=== PATIENT | male | born 1935 | race Caucasian/White ===

== ENCOUNTER 2019-08-18 22:32 | Inpatient (IN) | payer MEDICARE, OTHER ==
[~2019-08-18] VITALS: Ht 182.9 cm; Wt 70.3 kg
--- NOTE | 2019-08-18 22:42 | NUR ---
PT BIB [facility] FOR LOW BLOOD PRESSURE. PATIENT IS AAOX0. VERBAL RESPONSE TO PHYSICAL STIMULI. AWAKE. HAS G TUBE, DISTENDED ABDOMEN. WEISS CATHETER UPON ARRIVAL. MISSING 2ND AND 3RD DIGIT FROM RIGHT HAND. BREATHING EVENLY AND UNLABORED. ON 2L OF N/C. NO SOB. CONNECTED TO MONITOR. BLOOD PRESSURE AT 98/56.
[2019-08-18 23:14] LABS: BASOPHILS % (AUTO) 0.4 % (0.0-2.0); EOSINOPHILS % (AUTO) 0.3 % (0.0-6.0); HEMATOCRIT 39 % (39-51); HEMOGLOBIN 12.9 g/dL (13.5-17.5); LYMPHOCYTES # (AUTO) 0.5 /CMM (0.8-4.8); LYMPHOCYTES % (AUTO) 4.4 % (20.0-44.0); MEAN CORPUSCULAR HGB CONC 33 g/dl (31.0-36.0); MEAN CORPUSCULAR VOLUME 81 fL (80-96); MONOCYTES % (AUTO) 9.1 % (2.0-12.0); NEUTROPHILS % (AUTO) 85.8 % (43.0-81.0); PLATELET COUNT (AUTO) 309 /CMM (150-450); RED BLOOD CELL COUNT(AUTO) 4.77 MIL/uL (4.5-6.0); WHITE BLOOD COUNT (AUTO) 10.6 K/uL (4.3-11.0)
[2019-08-18 23:22] LABS: CALCIUM, SERUM 9.3 mg/dL (8.5-10.1); CARBON DIOXIDE 31 mmol/L (21-32); CHLORIDE 96 mmol/L (98-107); CREATININE 2.1 mg/dL (0.6-1.3); GLUCOSE 187 mg/dL (74-106); SODIUM SERUM 133 mmol/L (136-145); UREA NITROGEN, BLOOD 56 mg/dL (7-18)
[2019-08-18] MEDS ORDERED: ONDANSETRON HCL/PF 4 MG/2 ML VIAL IV ONE (23:30)
--- NOTE | 2019-08-18 23:30 | NUR ---
PT HAD AN EPISODE OF YELLOW VOMMITUS. PLENTY IN AMOUT. MADE AWARE. RECEIVED ORDER FOR ANDREI
[2019-08-18] MEDS ORDERED: ONDANSETRON HCL/PF 4 MG/2 ML VIAL ONE (23:33)
[2019-08-19] VITALS (35 sets, daily range): BP systolic 58–104; BP diastolic 35–57
[2019-08-19 00:55] LABS: APPEARANCE,URINE Turbid (CLEAR); BILIRUBIN,URINE MODERATE (NEGATIVE); BLOOD, URINE Small Ery/uL (NEGATIVE); COLOR,URINE Brown (YELLOW); KETONES,URINE Trace (NEGATIVE); LEUKOCYTE ESTERASE ,URINE Small (NEGATIVE); NITRITE, URINE Negative (NEGATIVE); UGLUCOSE Negative (NEGATIVE)
[2019-08-19 00:59] LABS: PH,URINE >9.0 (5.0-8.0); PROTEIN,URINE >300 mg/dl (NEGATIVE)
[2019-08-19 01:17] LABS: WBC,URINE 21-50 /HPF (0-3)
[2019-08-19 01:18] LABS: BACTERIA,URINE Many /HPF (None Seen); SQUAMOUS EPITHELIAL CELL,UR Few /HPF (None Seen); TRIPLE PHOSPHATE CRYSTAL,UR Many /HPF (None Seen)
[2019-08-19] MEDS ORDERED: CEFTRIAXONE 1 G in IV D5W 50 ML IV ONE (02:00)
[2019-08-19] MEDS ORDERED: FUROSEMIDE 40 MG/4 ML VIAL IV ONE (02:00)
[2019-08-19] MEDS ORDERED: L. A1CAP11 PO (02:08)
[2019-08-19] MEDS ORDERED: CEFTRIAXONE 1GM BAG (ER ONLY) 50 ML IV ONE (02:09)
[2019-08-19] MEDS ORDERED: AMIO200T4 PO (02:09)
[2019-08-19] MEDS ORDERED: ALBU2.5V13 NEB (02:09)
[2019-08-19] MEDS ORDERED: AMLO5TAB9 PO (02:09)
[2019-08-19] MEDS ORDERED: ARMO150T2 PO (02:11)
[2019-08-19] MEDS ORDERED: ATOR20TA PO (02:11)
[2019-08-19] MEDS ORDERED: CRAN425C6 PO (02:12)
[2019-08-19] MEDS ORDERED: CALC-770 PO (02:12)
[2019-08-19] MEDS ORDERED: BISA-79 GT (02:13)
[2019-08-19] MEDS ORDERED: LEVE500T20 PO (02:14)
[2019-08-19] MEDS ORDERED: LOSA50TA39 PO (02:14)
[2019-08-19] MEDS ORDERED: OMEP20TA5 PO (02:15)
[2019-08-19] MEDS ORDERED: METO50TA16 PO (02:15)
[2019-08-19] MEDS ORDERED: ACET325C7 GT (02:16)
[2019-08-19] MEDS ORDERED: TAMS-12 GT (02:16)
[2019-08-19] MEDS ORDERED: IV NS 0.9% 1,000 ML IV PRN (02:20)
--- NOTE | 2019-08-19 02:21 | NUR ---
LASIX CANCELLED DUE TO UNSAFE REASONS: PATIENT'S BLOOD PRESSURE ALREADY AT 92/58.
[2019-08-19] MEDS ORDERED: MAGNESIUM HYDROXIDE 30 ML UDC PO PRN (02:30)
[2019-08-19] MEDS ORDERED: ONDANSETRON HCL/PF 4 MG/2 ML VIAL IVP PRN (02:30)
[2019-08-19] MEDS ORDERED: MAG HYDROX/AL HYDROX/SIMETH 30 ML UDC PO PRN (02:30)
[2019-08-19] MEDS ORDERED: MORPHINE SULFATE INJ 2 MG/ML DISP.SYRIN IV PRN (02:30)
[2019-08-19] MEDS ORDERED: ALBUTEROL FS 2.5 MG/0.5 ML VIAL.NEB NEB PRN (02:30)
--- NOTE | 2019-08-19 02:55 | NUR ---
Aravind carter in [facility] - 08/19/19 at 0257 by SELVIN GOING TO [id number]
--- NOTE | 2019-08-19 02:57 | NUR ---
GOING TO [id number]
--- NOTE | 2019-08-19 03:06 | NUR ---
REPORT GIVEN TO JOCELYNE GAMEZ.
--- NOTE | 2019-08-19 03:30 | NUR ---
RN NOTES: ADMITTED FROM ER VIA GURNEY ACCOMPANIED BY 2 RN, ON SUCCESSFACTORS CONSULTANT, A/OX1, FORGETFUL AND WITH PERIODS OF CONFUSION, ANSWER YES AND NO, THERE ARE TIMES HE WILL JUST MAKE A COOING SOUND, RESPOND WHEN NAME IS CALLED,CAME IN FROM [facility], WITH C/O LOW BP-96/48 AND TACHYCARDIEC, BS-207, DX: uti, RENAL FAILURE AND HYPERKALEMIA(K-6.0),ON TELE MONITOR SR-96,ON O2 AT 2L/MIN VIA NC SPO2-94%,WEISS CATH F-16/10ML DRAINING INTO DARK YELLOWISH COLORED URINE,SLIGHTLY CLOUDY,ORIENTED TO UNIT AND STAFF, FALL,SAFETY AND ASPIRATION PRECAUTION OBSERVED.VOMITED ONCE IN ER RECEIVED ZOFRAN IV AND CEFTRIAXONE IV/ATB 1ST DOSE GIVEN,LASIX NOT GIVEN DUE TO LOW BP PER SHAHEEN(ER/RN) ENDORSEMENT.UNABLE TO GET HISTORY CORRECTLY PATIENT IS DEMENTED.NO RELATIVES AT BED SIDE. BODY ASSESSMENT DONE: 1) LEFT FOOT DISCOLORATION ON THE 1ST AND 2ND TOE 2) OPEN WOUND ON THE SACROCOCCYX AREA 3)RIGHT HAND- THERE IS MISSING 2ND AND 3RD DIGIT 4)PEG SITE- NOTED WITH REDNESS 5) WEISS CATH F-16/10ML 6)DISCOLORATION ON THE RIGHT FOOT 1ST AND 2ND TOE NAIL
--- NOTE | 2019-08-19 06:11 | NUR ---
RN NOTES: ASLEEP, NO PAIN OR DISCOMFORT SINCE ADMISSION IN MS-3W, NO VOMITING, SLEEP WELL, IVF OF NS AT 75ML/HR STARTED AT 0512, IV CANNULA INTACT IN THE LEFT WRIST G#18, PATENT.
[2019-08-19 06:25] LABS: BASOPHILS % (AUTO) 0.3 % (0.0-2.0); HEMATOCRIT 37 % (39-51); HEMOGLOBIN 12.3 g/dL (13.5-17.5); LYMPHOCYTES # (AUTO) 0.4 /CMM (0.8-4.8); LYMPHOCYTES % (AUTO) 5.1 % (20.0-44.0); MEAN CORPUSCULAR HGB CONC 33 g/dl (31.0-36.0); MEAN CORPUSCULAR VOLUME 81 fL (80-96); MONOCYTES # (AUTO) 0.7 /CMM (0.1-1.30); MONOCYTES % (AUTO) 8.5 % (2.0-12.0); NEUTROPHILS # (AUTO) 7.5 /CMM (1.8-8.9); NEUTROPHILS % (AUTO) 86.1 % (43.0-81.0); PLATELET COUNT (AUTO) 300 /CMM (150-450); RED BLOOD CELL COUNT(AUTO) 4.59 MIL/uL (4.5-6.0); WHITE BLOOD COUNT (AUTO) 8.7 K/uL (4.3-11.0)
[2019-08-19 06:52] LABS: CHOLESTEROL 74 mg/dL (<200); HDL CHOLESTEROL 28 mg/dL (40-60); LDL 28 mg/dL (0-99); THYROID STIMULATING HORMONE 1.069 uIU/mL (0.358-3.74); TRIGLYCERIDES 73 mg/dL (30-150)
[2019-08-19 07:03] LABS: ALANINE AMINOTRANSFERASE 66 U/L (12-78); ALBUMIN 2.3 g/dL (3.4-5.0); ALKALINE PHOSPHATASE 80 U/L (46-116); ASPARTATE AMINOTRANSFERASE 43 U/L (15-37); B-TYPE NATRIURETIC PEPTIDE 969 PG/ML (0-125); BILIRUBIN,TOTAL 0.6 mg/dL (0.2-1.0); CALCIUM, SERUM 9.1 mg/dL (8.5-10.1); CARBON DIOXIDE 27 mmol/L (21-32); CHLORIDE 96 mmol/L (98-107); CREATININE 2.2 mg/dL (0.6-1.3); GLUCOSE 166 mg/dL (74-106); PHOSPHORUS 5.3 mg/dL (2.5-4.9); POTASSIUM 5.2 mmol/L (3.5-5.1); SODIUM SERUM 134 mmol/L (136-145); TOTAL PROTEIN, SERUM 7.6 g/dL (6.4-8.2); UREA NITROGEN, BLOOD 61 mg/dL (7-18)
--- NOTE | 2019-08-19 07:30 | NUR ---
DEBT COLLECTOR NOTES PT IN BED, ASLEEP, EASY TO AROUSE, ALERT TO SELF, NO SIGN OF PAIN OR DISTRESS, CALL LIGHT WITHIN REACH, KEPT WARM AND COMFORTABLE IN BED.
[2019-08-19] MEDS: AMLODIPINE BESYLATE 5 MG TABLET PO SCH (09:00)
[2019-08-19] MEDS: AMIODARONE HCL 200 MG TABLET PO SCH (09:00)
[2019-08-19] MEDS ORDERED: LOSARTAN POTASSIUM 50 MG TABLET PO SCH (09:00)
[2019-08-19] MEDS ORDERED: Medication Not On Formulary EA (Armodafinil (Nuvigil) 1 TAB) PO SCH (09:00)
[2019-08-19] MEDS: METOPROLOL TARTRATE 50 MG TABLET PO SCH ×2 (09:00→17:00)
--- NOTE | 2019-08-19 09:06 | NUR ---
RN NOTE RECEIVED ORDER FROM DR OJEDA TO DC TELEMETRY MONITORING, TRANSFER TO MED/SURG WITH ALL MEDS. THE ORDER IS NOTED AND CARRIED OUT.
[2019-08-19] MEDS: ATORVASTATIN 10 MG TABLET PO SCH (09:13)
[2019-08-19] MEDS: HEPARIN SODIUM, PORCINE 5000 UNITS/1 ML VIAL SQ SCH ×2 (09:15→21:18)
--- NOTE | 2019-08-19 09:55 | NUR ---
RN MS NOTES PT SEEN AND EXAMINED BY DR. ALCARAZ, PER HOLD TUBE FEEDING FOR NOW, OK TO GIVE MEDS VIA GT.
[2019-08-19] MEDS ORDERED: SODIUM POLYSTYRENE SULFONATE 15 G/60 ML BOTTLE PO ONE (11:00)
[2019-08-19] MEDS: LEVETIRACETAM (250 MG) 250 MG TABLET PO SCH ×2 (11:40→21:17)
[2019-08-19] MEDS: IV D5/ 0.9% NACL 1,000 ML IV PRN (12:05)
[2019-08-19] MEDS ORDERED: Z GUARD REMEDY 2 OZ OINT TP PRN (13:00)
--- NOTE | 2019-08-19 13:58 | NUR ---
RN MS NOTES PT IN BED, RESTING, WITH CONFUSION, NO SIGN OF PAIN, NOT IN DISTRESS, IV FLUIDS INFUSING WELL, F/C DRAINING WELL WITH CLEAR MARIANNA COLORED URINE, TURNED AND REPOSITIONED Q2 HOURS.
[2019-08-19] MEDS: ACETAMINOPHEN 325 MG TABLET PO PRN (14:51)
--- NOTE | 2019-08-19 15:00 | NUR ---
RN MS NOTES NOTED PT WITH CONGESTION, O2 SAT 88%, WITH INCREASED BREATHING RATE, RT ADMINISTERED BREATHING TREATMENT, BP 75/39 [address] ALCARAZ INFORMED, ORDERED FOR STAT CXR, ABG, EKG AND BOLUS OF NS 500ML, NOTED AND CARRIED OUT.
[2019-08-19] MEDS ORDERED: IV NS 0.9% 500 ML IV ONE ×3 (15:30→18:30)
[2019-08-19 15:58] LABS: ABG BASE EXCESS 1.2 mmol/L; ABG OXYGEN SATURATION 96.6 % (92.0-98.5); ABG PCO2 30.6 mmHg (35.0-45.0); ABG PH 7.504 (7.350-7.450); ABG PO2 87.3 mmHg (75.0-100.0); AaDO2 198.7 mmHg; COHb 1.3 % (0.5-1.5); MetHb 0.3 % (0.0-1.5); O2Hb 95.1 % (94.0-97.0); SITE, ABG Right Radial; VENT MODE, BG 6 LPM N/C
--- NOTE | 2019-08-19 16:32 | NUR ---
RN MS NOTES LATEST VITAL SIGNS, ABG AND EKG RESULTS RELAYED TO DR. ALCARAZ, ORDERED TO GIVE ANOTHER NS BOLUS 500ML.
[2019-08-19] MEDS ORDERED: NOREPINEPHRINE 8 MG in IV D5W 500 ML IV PRN (18:30)
--- NOTE | 2019-08-19 18:43 | NUR ---
PUNCH MACHINE OPERATOR NOTES RECEIVED ORDERS FROM DR. ALCARAZ TO TRANSFER PT TO ICU, STAT LABS AND ECHO ORDERED, PT TRANSFERED TO ROOM 253 VIA ACLS PROTOCOL, PT RECEIVED BY ICU NURSES, BEDSIDE REPORT GIVEN TO AGRETH HEAVY EQUIPMENT RENTAL ASSOCIATE.
--- NOTE | 2019-08-19 19:00 | NUR ---
ICU ADMITTING NOTES: Rec'd pt from 3W d/t low BP. Pt drowsy, moans. NC at 6lpm, sating 92%, B crackles upon auscultation. ST on telemonitor. LH G18 w/ NS 500cc running wide open. Pt is febrile 101.7 - notified Dr. Everett. Started on Levophed drip as ordered, titrated accordingly. Has GT clamped upon transfer, per report clamped d/t abdominal distention. Has FC draining to yellowish UOP, per report Dr. Everett is aware that pt has decreasing UOP. Safety precaution kept in place at all times w/ bed in lowest & locked pos. Call light placed w/in reach. Will endorse to PM RN for LUIS FERNANDO.
--- NOTE | 2019-08-19 20:00 | NUR ---
Received patient lethargic mumbling i love you mama repeatedly.Not following commands. With audible crackles.O2 6L NC in progress.Secretions suctioned prn.ST with occasional pac's. Patient on Levophed gtt for BP support and will titrate accordingly.GT clamped.IVF infusing well. FC to gravity drainage tea colored urine.Turned and repositioned offloading pressure points.
[2019-08-19] MEDS: TAMSULOSIN 0.4 MG CAP.SR.24H GT SCH (21:20)
--- NOTE | 2019-08-19 21:20 | NUR ---
Patient desat to low 70's -80's.Placed on 100% NRB mask and well tolerated.Continue to monitor.
[2019-08-20] VITALS (94 sets, daily range): BP systolic 69–185; BP diastolic 25–147
--- NOTE | 2019-08-20 00:50 | NUR ---
RT NOTE PT NT SX'D. SECRETIONS ARE SMALL, THICK AND GREEN. RN AWARE.
--- NOTE | 2019-08-20 01:00 | NUR ---
PICC Line RN ,Kavin here and inserted MICHELE PICC line 3 ports with good blood returned. Dressing C/D/I.
[2019-08-20] MEDS ORDERED: NOREPINEPHRINE 4 MG/4 ML AMPUL IV ONE (01:33)
[2019-08-20] MEDS: NOREPINEPHRINE 16 MG in IV D5W 500 ML IV PRN ×3 (01:43→21:36)
[2019-08-20] MEDS ORDERED: CEFTRIAXONE 1 G in IV D5W 50 ML IV SCH (02:30)
--- NOTE | 2019-08-20 04:00 | NUR ---
Patient resting in no acute distress.AM care done.Wound care done.Turned and repositioned.
[2019-08-20 05:02] LABS: BASOPHILS % (AUTO) 0.2 % (0.0-2.0); HEMATOCRIT 34 % (39-51); HEMOGLOBIN 11.2 g/dL (13.5-17.5); LYMPHOCYTES # (AUTO) 0.5 /CMM (0.8-4.8); LYMPHOCYTES % (AUTO) 4.8 % (20.0-44.0); MEAN CORPUSCULAR HGB CONC 33 g/dl (31.0-36.0); MEAN CORPUSCULAR VOLUME 81 fL (80-96); MONOCYTES # (AUTO) 0.7 /CMM (0.1-1.30); MONOCYTES % (AUTO) 6.7 % (2.0-12.0); NEUTROPHILS # (AUTO) 9.8 /CMM (1.8-8.9); NEUTROPHILS % (AUTO) 88.3 % (43.0-81.0); PLATELET COUNT (AUTO) 360 /CMM (150-450); RED BLOOD CELL COUNT(AUTO) 4.24 MIL/uL (4.5-6.0); WHITE BLOOD COUNT (AUTO) 11.1 K/uL (4.3-11.0)
[2019-08-20 05:16] LABS: CALCIUM, SERUM 7.6 mg/dL (8.5-10.1); CARBON DIOXIDE 27 mmol/L (21-32); CHLORIDE 102 mmol/L (98-107); GLUCOSE 245 mg/dL (74-106); POTASSIUM 4.5 mmol/L (3.5-5.1); SODIUM SERUM 138 mmol/L (136-145)
[2019-08-20 05:21] LABS: UREA NITROGEN, BLOOD 78 mg/dL (7-18)
--- NOTE | 2019-08-20 07:00 | NUR ---
Patient resting.VSS,ST-119.Levophed gtt infusing at 24 mcg.All due medications administered. Report given to day shift RN for LUIS FERNANDO.
--- NOTE | 2019-08-20 07:15 | NUR ---
RN NOTES RECEIVED PATIENT IN BED. ASLEEP. RESPONSIVE TO VERBAL STIMULI, ABLE TO MAKE SOUNDS. ON NONREBREATHER MASK, SATING WELL. SINUS TACH PACs. ON THE MONITOR. NO INDICATION OF PAIN NOTED AT THIS TIME. WITH ONGOING LEVOPHED AT 24MCG/MIN AND D5NS AT 75CC/HR INFUSING WELL OVER THE MICHELE. WEISS CATHETER IN PLACE AND DRAINING WELL TO CLEAR MARIANNA COLOR URINE. HOB ELEVATED. SAFETY MEASURES OBSERVED AND MAINTAINED. BED IN LOW AND LOCKED POSITIONED. CALL LIGHT WITHIN REACH. WILL CONTINUE TO MONITOR PATIENT AND ANTICIPATE NEEDS
[2019-08-20] MEDS: LEVETIRACETAM (250 MG) 250 MG TABLET PO SCH ×2 (08:55→21:07)
[2019-08-20] MEDS: ATORVASTATIN 10 MG TABLET PO SCH (08:56)
[2019-08-20] MEDS: AMIODARONE HCL 200 MG TABLET PO SCH (08:56)
[2019-08-20] MEDS: METOPROLOL TARTRATE 50 MG TABLET PO SCH ×2 (08:56→16:43)
[2019-08-20] MEDS: AMLODIPINE BESYLATE 5 MG TABLET PO SCH (08:57)
[2019-08-20] MEDS: HEPARIN SODIUM, PORCINE 5000 UNITS/1 ML VIAL SQ SCH ×2 (08:57→21:08)
[2019-08-20] MEDS: IV D5/ 0.9% NACL 1,000 ML IV PRN (08:58)
[2019-08-20] MEDS ORDERED: NOREPINEPHRINE 8 MG in IV D5W 500 ML IV PRN (10:30)
[2019-08-20 10:34] LABS: BASOPHILS % (AUTO) 0.1 % (0.0-2.0); HEMATOCRIT 37 % (39-51); HEMOGLOBIN 11.9 g/dL (13.5-17.5); LYMPHOCYTES # (AUTO) 0.5 /CMM (0.8-4.8); LYMPHOCYTES % (AUTO) 4.1 % (20.0-44.0); MEAN CORPUSCULAR HGB CONC 33 g/dl (31.0-36.0); MEAN CORPUSCULAR VOLUME 81 fL (80-96); MONOCYTES # (AUTO) 0.4 /CMM (0.1-1.30); MONOCYTES % (AUTO) 3.6 % (2.0-12.0); NEUTROPHILS # (AUTO) 10.3 /CMM (1.8-8.9); NEUTROPHILS % (AUTO) 92.2 % (43.0-81.0); PLATELET COUNT (AUTO) 357 /CMM (150-450); WHITE BLOOD COUNT (AUTO) 11.2 K/uL (4.3-11.0)
[2019-08-20 10:39] LABS: CALCIUM, SERUM 7.5 mg/dL (8.5-10.1); CARBON DIOXIDE 26 mmol/L (21-32); CHLORIDE 100 mmol/L (98-107); GLUCOSE 237 mg/dL (74-106); POTASSIUM 4.4 mmol/L (3.5-5.1); SODIUM SERUM 134 mmol/L (136-145)
[2019-08-20 10:51] LABS: UREA NITROGEN, BLOOD 80 mg/dL (7-18)
[2019-08-20] MEDS ORDERED: FUROSEMIDE 40 MG/4 ML VIAL IV ONE (11:30)
[2019-08-20] MEDS ORDERED: ALBUMIN 25% 25 GM in PREMIX 1 EA IV ONE (11:30)
[2019-08-20 11:40] LABS: BAND % (MANUAL) 23 % (0.0-5.0); LYMPHOCYTES % (MANUAL) 10 % (16-48); METAMYELOCYTES % 1 % (0-0); MONOCYTES % (MANUAL) 5 % (0-11.0); NEUTROPHILS % (MANUAL) 61 (42-76)
[2019-08-20 13:03] LABS: ABG BASE EXCESS -2.8 mmol/L; ABG OXYGEN SATURATION 95.6 % (92.0-98.5); ABG PCO2 26.1 mmHg (35.0-45.0); ABG PH 7.486 (7.350-7.450); ABG PO2 75.7 mmHg (75.0-100.0); AaDO2 467.3 mmHg; MetHb 0.3 % (0.0-1.5); O2Hb 94.4 % (94.0-97.0); SITE, ABG Left Brachial; VENT MODE, BG NRB
[2019-08-20] MEDS ORDERED: FEE PK DOSING 1 MIN EA MC ONE (14:03)
--- NOTE | 2019-08-20 14:30 | NUR ---
RN NOTES INFORMED DR. OJEDA THAT PATIENT WITH EPISODE OF AFIB WITH HR ON THE 140s. FOR 15 MINUTES. BLOOD PRESSURE ON 102/52MMHG AT THE TIME. OBTAINED ORDER TO CHECK FOR MAGNESIUM LEVEL. ORDER NOTED AND CARRIED OUT
[2019-08-20] MEDS: MEROPENEM 500 MG in IV NS 0.9% 50 ML IV SCH (15:28)
--- NOTE | 2019-08-20 16:00 | NUR ---
RN NOTES FOLLOWED UP WITH LAB ON MAGNESIUM DRAW RESULT BUT ACCORDING TO THEM NO NEW LEVEL WAS DRAWN. REORDER AT THIS TIME
[2019-08-20] MEDS: ACETAMINOPHEN 325 MG TABLET PO PRN (16:42)
[2019-08-20] MEDS: VANCOMYCIN 1 GM in IV D5W 250 ML IV SCH (16:42)
--- NOTE | 2019-08-20 17:00 | NUR ---
RN NOTES INFORMED DR. OJEDA THAT MAGNESIUM LEVEL AT 3.O PER MD, NO CHANGES OF INTERVENTION
--- NOTE | 2019-08-20 18:00 | NUR ---
RN NOTES RECEIVED CALL FROM [facility] THAT PATIENT FOUND WITH SMALL BOWEL OBSTRUCTION. INFORMED (ATTENDING) AND OBTAINED ORDER TO INSERT NGT BUT INFORMED MD THAT PATIENT WITH GT. ATTACHED WITH LOW INTERMITTENT SUCTIONING. ORDERS NOTED AND CARRIED OUT
--- NOTE | 2019-08-20 19:00 | NUR ---
RECEIVED PATIENT IN NO ACUTE DISTRESS IN BED. PATIENT IS A/O X 1 WITH CONFUSION. PATIENT IS ON O2 VIA NON REBREATHER AT 15LPM AND TOLERATING WELL WITH O2 SAT @ 95%. PATIENT NOT COMPLAINING OF ANY SOB, DIFFICULTY BREATHING OR PAIN AT THIS TIME. PATIENT HAS RALES IN ALL TELLEZ. PATIENT IS ON TELEMETRY WITH SINUS TACHYCARDIA ON THE MONITOR WITH PACS AND OCCASIONAL PVCS. PATIENT HAS GASTRIC TUBE THAT IS CLEAN DRY INTACT AND PATENT ON LOW INTERMITTENT SUCTIONING WITH GREEN GASTRIC CONTENT DRAINING INTO SUCTION COLLECTION CANISTER. PATIENT HAS WEISS CATHETER THAT IS CLEAN DRY INTACT AND PATENT WITH MARIANNA CLOUDY URINE DRAINING. PATIENT HAS RIGHT UPPER ARM TRIPLE LUMEN CATHETER THAT IS CLEAN DRY INTACT AND PATENT WITH D5NS AT 50ML/HR AND LEVOPHED AT 28MCG INFUSING. PATIENT HAS BILATERAL WRIST 18G PERIPHERAL IVS THAT ARE CLEAN DRY INTACT AND PATENT WITH SALINE FLUSH. BED IN LOW LOCK POSITION WITH RAILS UP X 2. CALL LIGHT WITHIN REACH AND ALL SAFETY MEASURES ENSURED AND CARRIED OUT. WILL CONTINUE TO MONITOR PATIENT.
--- NOTE | 2019-08-20 19:00 | NUR ---
RN NOTES RN NOTES ENDORSED FOR CONTINUITY OF CARE. NOT ON ANY FROM OF DISTRESS. STILL ON NON REBREATHER MASK. GT ON LOW INTERMITTENT SUCTIONING. ALL NURSING NEEDS ATTENDED AND MET. HOB ELEVATED AT ALL TIMES. ALL SAFETY MEASURES IN PLACE. CALL LIGHT WITHIN REACH
[2019-08-20] MEDS: TAMSULOSIN 0.4 MG CAP.SR.24H GT SCH (21:08)
[2019-08-21] VITALS (94 sets, daily range): BP systolic 66–141; BP diastolic 30–106
[2019-08-21] MEDS: MEROPENEM 500 MG in IV NS 0.9% 50 ML IV SCH ×2 (02:47→14:06)
[2019-08-21 04:32] LABS: CALCIUM, SERUM 7.3 mg/dL (8.5-10.1); CARBON DIOXIDE 25 mmol/L (21-32); CHLORIDE 99 mmol/L (98-107); GLUCOSE 218 mg/dL (74-106); PHOSPHORUS 2.5 mg/dL (2.5-4.9); POTASSIUM 3.7 mmol/L (3.5-5.1); SODIUM SERUM 131 mmol/L (136-145)
[2019-08-21 04:34] LABS: UREA NITROGEN, BLOOD 82 mg/dL (7-18)
[2019-08-21 04:58] LABS: BASOPHILS % (AUTO) 0.4 % (0.0-2.0); EOSINOPHILS % (AUTO) 0.1 % (0.0-6.0); HEMATOCRIT 32 % (39-51); HEMOGLOBIN 10.3 g/dL (13.5-17.5); LYMPHOCYTES # (AUTO) 0.8 /CMM (0.8-4.8); LYMPHOCYTES % (AUTO) 7.5 % (20.0-44.0); MEAN CORPUSCULAR HGB CONC 32 g/dl (31.0-36.0); MEAN CORPUSCULAR VOLUME 81 fL (80-96); MONOCYTES # (AUTO) 0.6 /CMM (0.1-1.30); MONOCYTES % (AUTO) 5.3 % (2.0-12.0); NEUTROPHILS # (AUTO) 9.6 /CMM (1.8-8.9); NEUTROPHILS % (AUTO) 86.7 % (43.0-81.0); PLATELET COUNT (AUTO) 269 /CMM (150-450)
[2019-08-21] MEDS: NOREPINEPHRINE 16 MG in IV D5W 500 ML IV PRN ×3 (05:29→23:24)
--- NOTE | 2019-08-21 05:30 | NUR ---
PATIENT HAS 100% SATURATION ON NONREBREATHER. WILL DECREASE TO 10LPM ON SIMPLE MASK AND MONITOR. WILL NOTIFY RESPIRATORY STAFF WELL.
[2019-08-21] MEDS: IV D5/ 0.9% NACL 1,000 ML IV PRN (05:41)
--- NOTE | 2019-08-21 07:30 | NUR ---
CHILDCARE AIDE OPENING NOTE RECEIVED REPORT FROM PM NURSE.PATIENT IN BED. NO ACUTE DISTRESS . PATIENT IS A/O X 1 WITH CONFUSION. PATIENT IS ON O2 VIA MASK 8L.TOLERATING WELL WITH O2 SAT @ 94%. NO SOB NO DISTRESS AT THIS TIME. PATIENT IS ON TELEMETRY WITH SINUS RHYTHM ON THE MONITOR WITH PACS AND OCCASIONAL PVCS HR 92. PATIENT HAS GASTRIC TUBE THAT IS CLEAN DRY INTACT AND PATENT ON LOW INTERMITTENT SUCTIONING WITH GREEN GASTRIC CONTENT DRAINING INTO SUCTION COLLECTION CANISTER. PATIENT HAS WEISS CATHETER THAT IS CLEAN DRY INTACT AND PATENT WITH CLEAR YELLOW URINE DRAINING. PATIENT HAS RIGHT UPPER ARM TRIPLE LUMEN CATHETER THAT IS CLEAN DRY INTACT AND PATENT WITH D5NS AT 50ML/HR AND LEVOPHED AT 32MCG INFUSING. PATIENT HAS R WRIST 18G PERIPHERAL IVS THAT ARE CLEAN DRY INTACT AND PATENT WITH SALINE FLUSH. BED IN LOW LOCK POSITION WITH RAILS UP X 3. CALL LIGHT WITHIN REACH AND ALL SAFETY MEASURES ENSURED AND CARRIED OUT. WILL CONTINUE TO MONITOR .
[2019-08-21] MEDS: METOPROLOL TARTRATE 50 MG TABLET PO SCH (08:02)
[2019-08-21] MEDS: AMLODIPINE BESYLATE 5 MG TABLET PO SCH (08:02)
[2019-08-21] MEDS: LEVETIRACETAM (250 MG) 250 MG TABLET PO SCH ×2 (08:13→21:19)
[2019-08-21] MEDS: ATORVASTATIN 10 MG TABLET PO SCH (08:14)
[2019-08-21] MEDS: AMIODARONE HCL 200 MG TABLET PO SCH (08:14)
[2019-08-21] MEDS: HYDROCODONE/APAP 5/325MG 1 EACH TABLET PO PRN (08:14)
[2019-08-21] MEDS: ACETAMINOPHEN 325 MG TABLET PO PRN ×2 (08:14→15:18)
[2019-08-21] MEDS: HEPARIN SODIUM, PORCINE 5000 UNITS/1 ML VIAL SQ SCH ×2 (08:15→21:22)
--- NOTE | 2019-08-21 08:44 | NUR ---
WOUND CARE CONSULT: PT PRESENTS WITH INTACT DEEP TISSUE INJURY TO SACRUM, PRESENT ON ADMISSION. PT ALSO NOTED TO HAVE GENERALIZED EDEMA TO PENIS/SCROTUM AREA, PRESENT ON ADMISSION. RECOMMENDATIONS MADE FOR WOUND CARE AND SKIN PROTECTION. DISCUSSED WITH NURSING STAFF. PT INCONTINENT OF STOOL. WEISS CATH NOTED. WILL SEE PRN. CURRENT FRANCO SCORE IS 14. Addendum: 08/21/19 at 0846 by RAMANDEEP OSBRON WNDNU Amended: Links added.
[2019-08-21] MEDS: HYDROCORTISONE SOD SUCCINATE 100 MG/2 ML VIAL IV SCH ×3 (09:15→17:16)
[2019-08-21] MEDS: IV NS 0.9% 1,000 ML IV PRN ×2 (09:25→19:34)
--- NOTE | 2019-08-21 10:00 | NUR ---
TILE MECHANIC HELPER NOTE PATIENT UNSTABLE,RR 46.KEPT IN SAME POSITION.HOLD INSULIN BECAUSE OF NPO STATUS.
--- NOTE | 2019-08-21 11:05 | NUR ---
INKJET OPERATOR NOTE SEEN BY ,UPDATED ABOUT [id number] CONDITION WITH LABS.WAITING FOR SMALL BOWEL XRAY.WILL CONTINUE TO MONITOR.
--- NOTE | 2019-08-21 12:00 | NUR ---
METAL CASKET MAKER NOTE GOT CALL FROM DAUGHTER,UPDATED ABOUT PATIENT CONDITION.REQUESTED TO TRANSFER TO [facility],SPOKE TO AUDIO VIDEO MECHANIC ROXANA AND TRANSFERRED PHONE TO ROXANA AUDIO VIDEO MECHANIC.
--- NOTE | 2019-08-21 15:02 | NUR ---
CASH APPLICATIONS COORDINATOR NOTE LEFT MESSAGE FOR DR ALCARAZ TO CALL DAUGHTER PER REQUEST.
--- NOTE | 2019-08-21 19:00 | NUR ---
RECEIVED PATIENT AWAKE,ALERT,FOLLOWS COMMANDS, CONVERSING BUT HARD TO UNDERSTAND., ORIENTED TO PERSON,SEEMS TO UNDERSTAND ,COOPERATIVE. + PRODUCTIVE COUGH, WITH O2 VIA SIMPLE FACE MASK 5 LITERS, NOT IN NAY DISTRESS,BREATHING REGULAR AND NON LABORED. ON LEVOPHED DRIP FOR BP SUPPORT,WILL TITRATE TOLERATED. G TUBE TO LIWS .COMFORT CARE DONE,NEEDS ATTENDED.
--- NOTE | 2019-08-21 19:31 | NUR ---
PACU RN CLOSING NOTE PATIENT IN BED. NO ACUTE DISTRESS . PATIENT IS A/O X 1 WITH CONFUSION. ON O2 VIA MASK 6L.TOLERATING WELL WITH O2 SAT @ 96%. NO SOB NO DISTRESS AT THIS TIME. ON TELEMETRY WITH SINUS RHYTHM ON THE MONITOR WITH PACS AND OCCASIONAL PVCS HR 82. PATIENT HAS GASTRIC TUBE THAT IS CLEAN DRY INTACT AND PATENT ON LOW INTERMITTENT SUCTIONING WITH GREEN GASTRIC CONTENT DRAINING INTO SUCTION COLLECTION CANISTER. PATIENT HAS WEISS CATHETER THAT IS CLEAN DRY INTACT AND PATENT WITH CLEAR YELLOW URINE DRAINING. PATIENT HAS RIGHT UPPER ARM TRIPLE LUMEN CATHETER THAT IS CLEAN DRY INTACT AND PATENT WITH NS AT 100ML/HR AND LEVOPHED AT 26MCG INFUSING. PATIENT HAS R WRIST 18G PERIPHERAL IVS THAT ARE CLEAN DRY INTACT AND PATENT WITH SALINE FLUSH. BED IN LOW LOCK POSITION WITH RAILS UP X 3. CALL LIGHT WITHIN REACH AND ALL SAFETY MEASURES ENSURED AND CARRIED OUT. DAUGHTER UPDATED ABOUT PATIENT CONDITION.SHE WAS NOT ABLE TO SPEECH WRITER 'S PHONE CALL.SHE SAID SHE WILL FU TOMORROW.CALL MADE TO RADIOLOGY MORE THAN 3 TIMES,LAST SPOKE TO BRADY FOR SMALL BOWEL SERIES.SHE SAID SHE WILL TRY IF and THEY CAN DO IT TONIGHT AND A OR WILL BE IN AM.ENDORSED TO PM NURSE FOR LUIS FERNANDO. A
[2019-08-21] MEDS: TAMSULOSIN 0.4 MG CAP.SR.24H GT SCH (21:19)
[2019-08-22] VITALS (67 sets, daily range): BP systolic 91–141; BP diastolic 43–75
--- NOTE | 2019-08-22 | NUR ---
STABLE,.WEANING DOWN LEVOPHED DRIP ,TOLERATING SO FAR.AWAKE.,ALERT.NOTED SOME INVOLUNTARY SHAKING OF ARMS(MORE PROMINENT IN THE RIGHT ARM) WHEN GETS AGITATED.PULMONARY TOILETING DONE,PATIENT RESISTING SUCTIONING .
[2019-08-22] MEDS: MEROPENEM 500 MG in IV NS 0.9% 50 ML IV SCH ×2 (02:06→13:38)
[2019-08-22] MEDS: VANCOMYCIN 1 GM in IV D5W 250 ML IV SCH (03:05)
--- NOTE | 2019-08-22 04:00 | NUR ---
REMAINS STABLE.LEVOPHED DRIP NOW DOWN TO 14 MCG/MIN.BP STABLE.AM CARE DONE.SACRAL PRESSURE INJURY DRESSING CHANGED.
[2019-08-22 04:24] LABS: BASOPHILS % (AUTO) 0.2 % (0.0-2.0); EOSINOPHILS % (AUTO) 0.1 % (0.0-6.0); HEMATOCRIT 30 % (39-51); HEMOGLOBIN 9.8 g/dL (13.5-17.5); LYMPHOCYTES # (AUTO) 0.2 /CMM (0.8-4.8); MEAN CORPUSCULAR HGB CONC 33 g/dl (31.0-36.0); MEAN CORPUSCULAR VOLUME 82 fL (80-96); MONOCYTES # (AUTO) 0.4 /CMM (0.1-1.30); NEUTROPHILS # (AUTO) 11.3 /CMM (1.8-8.9); NEUTROPHILS % (AUTO) 94.7 % (43.0-81.0); PLATELET COUNT (AUTO) 234 /CMM (150-450); RED BLOOD CELL COUNT(AUTO) 3.66 MIL/uL (4.5-6.0); WHITE BLOOD COUNT (AUTO) 11.9 K/uL (4.3-11.0)
[2019-08-22 04:44] LABS: ALANINE AMINOTRANSFERASE 46 U/L (12-78); ALBUMIN 1.7 g/dL (3.4-5.0); ALKALINE PHOSPHATASE 63 U/L (46-116); ASPARTATE AMINOTRANSFERASE 33 U/L (15-37); BILIRUBIN,TOTAL 0.3 mg/dL (0.2-1.0); CALCIUM, SERUM 7.2 mg/dL (8.5-10.1); CARBON DIOXIDE 27 mmol/L (21-32); CHLORIDE 105 mmol/L (98-107); CREATININE 1.8 mg/dL (0.6-1.3); GLUCOSE 205 mg/dL (74-106); MAGNESIUM 2.9 mg/dL (1.8-2.4); PHOSPHORUS 2.5 mg/dL (2.5-4.9); POTASSIUM 2.9 mmol/L (3.5-5.1); SODIUM SERUM 138 mmol/L (136-145); TOTAL PROTEIN, SERUM 5.7 g/dL (6.4-8.2); UREA NITROGEN, BLOOD 56 mg/dL (7-18)
[2019-08-22] MEDS: IV NS 0.9% 1,000 ML IV PRN ×2 (05:21→16:19)
--- NOTE | 2019-08-22 07:00 | NUR ---
levophed drip now at 10 mcg/min.bp still stable.continue to wean off levophed drip/.Pulmonary toileting, patient with productive cough.Report given to Beth GAMEZ
--- NOTE | 2019-08-22 07:30 | NUR ---
FASHION CONSULTANT INITIAL NOTE RECEIVED PATIENT AWAKE, NON-VERBAL, NO S/S OF PAIN OR DISCOMFORT. NO RESPIRATORY DISTRESS NOTED, ON 6LPM O2 VIA SIMPLE MASK. ON TELE MONITOR SR WITH BBB. WITH F/C PATENT, INTACT, IN PLACE, DRAINING BY GRAVITY. GT PATENT ,INTACT ,IN PLACE, ON LOW INTERMITTENT SUCTION. ABDOMEN SOFT AND NON-TENDER. MICHELE PIC LINE PATENT AND INTACT, WITH LEVO AT 10MCG/MIN AND IVF. HOB ELEVATED. SIDE RAILS UP AND LOCKED. BED KEPT AT LOWEST POSITION. CALL LIGHT KEPT WITHIN EASY REACH. WILL CONTINUE TO MONITOR.
--- NOTE | 2019-08-22 08:16 | NUR ---
RADIOLOGY SPOKE WITH RADIOLOGY REGARDING BOWEL SERIES, PER TECH, STAFF IS SHORT AND PATIENT WOULD HAVE TO BE BROUGHT DOWN FOR PROCEDURE.
--- NOTE | 2019-08-22 08:36 | NUR ---
ENTRY LEVEL JAVA DEVELOPER NOTE SEEN AND EXAMINE BY DR. JAIME. PER DR. JAIME IT'S NOT RECOMMENDED TO BRING PATIENT DOWN FOR BOWEL SERIES AT THIS TIME.
[2019-08-22 08:49] LABS: IRON, SERUM 14 ug/dl (50-175); TOTAL IRON BINDING CAPACITY 105 ug/dl (250-450)
[2019-08-22 09:03] LABS: FERRITIN 548 ng/mL (8-388)
[2019-08-22] MEDS: HEPARIN SODIUM, PORCINE 5000 UNITS/1 ML VIAL SQ SCH ×2 (09:06→21:50)
[2019-08-22] MEDS: LEVETIRACETAM SOL (5 ML) 100 MG/ML UDC GT SCH ×2 (09:07→21:53)
[2019-08-22] MEDS: HYDROCORTISONE SOD SUCCINATE 100 MG/2 ML VIAL IV SCH ×3 (09:08→16:20)
[2019-08-22] MEDS: AMIODARONE HCL 200 MG TABLET PO SCH (09:08)
--- NOTE | 2019-08-22 09:47 | NUR ---
MEDICAL RECORD TECHNICIAN NOTE CLARIFIED WITH DR JAIME WHETHER PATIENT CAN BE TAKEN DOWN FOR BOWEL SERIES PROCEDURE. HE WOULD PREFER PROCEDURE TO BE DONE AT BEDSIDE. AND IF PATIENT HAS TO BE TAKEN DOWN. TAKE PATIENT DOWN VERY CAREFULLY.
[2019-08-22] MEDS: POTASSIUM CL. PREMIX PERIPHER. 50 ML IV SCH ×5 (10:00→15:03)
--- NOTE | 2019-08-22 12:03 | NUR ---
agricultural chemicals inspector note spoke with daughter Shae and updates given. requested for swallow study once patient is stable.
[2019-08-22 17:43] LABS: CALCIUM, SERUM 6.9 mg/dL (8.5-10.1); CREATININE 1.3 mg/dL (0.6-1.3); POTASSIUM 3.4 mmol/L (3.5-5.1)
--- NOTE | 2019-08-22 18:30 | NUR ---
SHEET IRONWORKER NOTE SEEN AND EXAMINED BY LIBRARY SPECIALIST SHANTE, UPDATES GIVEN. INFORMED BOWEL SERIES NOT DONE DUE TO LACK OF STAFFING. PER SHANTE, HAVE KUB DONE AT THE VERY LEAST IF BOWEL SERIES CAN NOT BE DONE. CALLED RADIOLOGY AND INFORMED.
--- NOTE | 2019-08-22 19:00 | NUR ---
MUSIC AUTOGRAPHER CLOSING NOTE NO SIGNIFICANT CHANGE. PATIENT OFF LEVO SINCE 1000. NO RESPIRATORY DISTRESS NOTED, ON 5LPMO2 VIA FACE MASK. NASOTRACHEAL SUCTION NEEDED, WITH THICK YOO COLORED MUCUS. GT PATENT AND INTACT ON LOW INTERMITTENT SUCTION WITH MINIMAL OUTPUT NOTED. F/C PATENT, INTACT, DRAINING BY GRAVITY. KEPT CLEAN AND DRY. TURNED AND REPOSITIONED Q2 AND PRN. CALL LIGHT KEPT WITHIN EASY REACH. WILL ENDORSE CONTINUITY OF CARE TO PM NURSE.
--- NOTE | 2019-08-22 19:30 | NUR ---
RN NOTES RECEIVED PATIENT AWAKE ALERT ORIENTED X 1 CONFUSED. NO APPARENT RESPIRATORY DISTRESS. AFEBRILE. ON O2 VIA MASK @ 5LPM . SR WITH BBB ON TELE MONITOR. CLOSELY MONITOR FO RHYPOTENSIONOFF FROM LEVO. VS WNL. GT ON LIS WITH SMALL LIGHT YELLOW COLOR OUTPUT. IV SITE ON MICHELE PICC LINE WITH NS @ 100 ML/HR INTACT AND PATENT WITH GOOD BLD. RETURN. TURNED AND REPOSITIONED FOR SKIN MANAGEMENT. WAITING FOR XRAY FOR KUB PER REPORT
--- NOTE | 2019-08-22 21:00 | NUR ---
RN NOTES KUB DONE AT BEDSIDE BY RADIOLOGY.
[2019-08-22] MEDS: TAMSULOSIN 0.4 MG CAP.SR.24H GT SCH (21:49)
[2019-08-23] VITALS (21 sets, daily range): BP systolic 96–150; BP diastolic 46–74
[2019-08-23] MEDS: IV NS 0.9% 1,000 ML IV PRN ×2 (01:38→17:22)
[2019-08-23 02:07] LABS: BASOPHILS % (AUTO) 0.1 % (0.0-2.0); HEMATOCRIT 27 % (39-51); HEMOGLOBIN 8.8 g/dL (13.5-17.5); LYMPHOCYTES # (AUTO) 0.3 /CMM (0.8-4.8); LYMPHOCYTES % (AUTO) 3.4 % (20.0-44.0); MEAN CORPUSCULAR HGB CONC 33 g/dl (31.0-36.0); MEAN CORPUSCULAR VOLUME 81 fL (80-96); MONOCYTES # (AUTO) 0.4 /CMM (0.1-1.30); MONOCYTES % (AUTO) 4.7 % (2.0-12.0); NEUTROPHILS % (AUTO) 91.8 % (43.0-81.0); PLATELET COUNT (AUTO) 197 /CMM (150-450); WHITE BLOOD COUNT (AUTO) 7.6 K/uL (4.3-11.0)
[2019-08-23] MEDS: MEROPENEM 500 MG in IV NS 0.9% 50 ML IV SCH ×2 (02:12→16:28)
[2019-08-23 02:15] LABS: CALCIUM, SERUM 6.9 mg/dL (8.5-10.1); CARBON DIOXIDE 29 mmol/L (21-32); CHLORIDE 112 mmol/L (98-107); CREATININE 1.2 mg/dL (0.6-1.3); GLUCOSE 138 mg/dL (74-106); MAGNESIUM 2.5 mg/dL (1.8-2.4); PHOSPHORUS 2.8 mg/dL (2.5-4.9); SODIUM SERUM 145 mmol/L (136-145); UREA NITROGEN, BLOOD 46 mg/dL (7-18)
[2019-08-23] MEDS ORDERED: VANCOMYCIN 1 GM in IV D5W 250 ML IV SCH ×2 (03:00→21:00)
--- NOTE | 2019-08-23 06:50 | NUR ---
RN NOTES PATIENT ASLEEP FOR ABOUT 4 -6 HOURS , DENIES PAIN. KEPT ASKING FOR WATER. PATIENT IS AOX 1 CONFUSED MOST OF THE TIME. O2 5LPM VIA MASK TOLERATED WELL , SATURATION REMAINED >93% NO HYPOTENSION SHOWN. NO SIGNIFICANT CHANGE OF CONDITION THROUGHOUT THE SHIFT. VSS. KEPT PT CLEAN AND DRY. WILL ENDORSED CONTINUITY OF CARE TO AM NURSE.
--- NOTE | 2019-08-23 08:00 | NUR ---
ICU/RN INITIAL NOTES,AM RECEIVED BEDSIDE REPORT FROM NIGHT NURSE. PT ALERT, AWAKE, CONFUSED. ON 5LITERS SIMPLE MASK, TOLERATING WELL, NO DISTRESS NOTED. SINUS ON TELE WITH BBB. WEISS CATH IN PLACE, DRAINING URINE. PT NPO, ON LIS. AWAITING SMALL BOWEL FOLLOW THROUGH. RIGHT UPPER ARM PICC LINE PATENT AND INTACT, NO S/S OF INFECTION OR INFILTRATION NOTED. IVF INFUSING ORDERED. DAILY LABS DONE, WILL REPLACE POTASSIUM. ALL NEEDS WILL BE ATTENDED TO, SAFETY MEASURES TAKEN, BED IN LOW POSITION, SIDE RAILS UP, CALL LIGHT WITHIN REACH. POSSIBLE DOWNGRADE THIS AM.
[2019-08-23] MEDS: LEVETIRACETAM SOL (5 ML) 100 MG/ML UDC GT SCH ×2 (08:07→20:09)
[2019-08-23] MEDS: POTASSIUM CL. PREMIX PERIPHER. 50 ML IV SCH ×10 (08:07→23:03)
[2019-08-23] MEDS: HYDROCORTISONE SOD SUCCINATE 100 MG/2 ML VIAL IV SCH ×3 (08:07→17:04)
[2019-08-23] MEDS: HEPARIN SODIUM, PORCINE 5000 UNITS/1 ML VIAL SQ SCH ×2 (08:08→20:10)
[2019-08-23] MEDS: AMIODARONE HCL 200 MG TABLET PO SCH (08:08)
--- NOTE | 2019-08-23 09:00 | NUR ---
ICU/RN: PT ASSESSED BY . ORDERS RECEIVED TO DOWNGRADE TO TELE.
--- NOTE | 2019-08-23 09:35 | NUR ---
ICU/RN: PT PLACED ON 3LITERS NASAL CANULA, TOLERATING WELL, NO DISTRESS. WILL CONTINUE TO MONITOR
--- NOTE | 2019-08-23 10:22 | NUR ---
ICU/RN: REPORT ENDORSED TO JOSÉ MIGUEL GAMEZ. PT WILL BE TRANSFERRED TO TELE 112.
[2019-08-23] MEDS ORDERED: DIATR MEGLU/DIATRIZOATE SODIUM 120 ML BOTTLE (GASTROGRAPHIN) ONE (14:48)
--- NOTE | 2019-08-23 16:44 | NUR ---
PT TAKEN TO RADIOLOGY FOR SMALL BOWL FOLLOW THROUGH AT 1430. JUST ARRIVED BACK ON UNIT. PT APPEARS TO BE COMFORTABLE.
[2019-08-23] MEDS: SOD FERRIC GLUC 125 MG in IV NS 0.9% 100 ML IV SCH (17:32)
--- NOTE | 2019-08-23 19:05 | NUR ---
RN OPENING NOTES: PATIENT AWAKE AND VERBALLY RESPONSIVE. A&OX1. NO RESPIRATORY DISTRESS. NO PAIN. UPON ENDORSEMENT, PATIENT IS S/P SMALL BOWEL FOLLOW THROUGH. MICHELE PICC LINE PATENT, INTACT, AND FLUSHING WELL. RUNNING NS AT 100 MLS/HR AND POTASSIUM. WEISS CATH PATENT AND DRAINING CLEAR YELLOW URINE. SAFETY PRECAUTIONS IMPLEMENTED. BED LOCKED AND IN LOWEST POSITION. CALL LIGHT PLACED WITHIN REACH. WILL CONT. TO MONITOR.
--- NOTE | 2019-08-23 19:43 | NUR ---
RN CLOSING NOTES REPORT GIVEN TO COMPANION RN. PT STILL CURRENTLY NPO. LUIS FERNANDO ENDORSED TO COMPANION RN.
[2019-08-23] MEDS: TAMSULOSIN 0.4 MG CAP.SR.24H GT SCH (21:03)
[2019-08-23] MEDS: HYDROCODONE/APAP 5/325MG 1 EACH TABLET PO PRN (23:04)
[2019-08-24] VITALS (9 sets, daily range): BP systolic 126–138; BP diastolic 63–81
[2019-08-24] MEDS: MEROPENEM 500 MG in IV NS 0.9% 50 ML IV SCH ×2 (02:47→14:15)
[2019-08-24] MEDS: IV NS 0.9% 1,000 ML IV PRN (02:57)
[2019-08-24 07:02] LABS: BASOPHILS % (AUTO) 0.1 % (0.0-2.0); HEMATOCRIT 28 % (39-51); HEMOGLOBIN 9.1 g/dL (13.5-17.5); LYMPHOCYTES # (AUTO) 0.2 /CMM (0.8-4.8); MEAN CORPUSCULAR HGB CONC 33 g/dl (31.0-36.0); MEAN CORPUSCULAR VOLUME 81 fL (80-96); MONOCYTES # (AUTO) 0.5 /CMM (0.1-1.30); MONOCYTES % (AUTO) 6.1 % (2.0-12.0); NEUTROPHILS # (AUTO) 7.1 /CMM (1.8-8.9); NEUTROPHILS % (AUTO) 90.8 % (43.0-81.0); PLATELET COUNT (AUTO) 211 /CMM (150-450); RED BLOOD CELL COUNT(AUTO) 3.42 MIL/uL (4.5-6.0); WHITE BLOOD COUNT (AUTO) 7.8 K/uL (4.3-11.0)
--- NOTE | 2019-08-24 07:25 | NUR ---
RN CLOSING NOTES: PATIENT AWAKE AND VERBALLY RESPONSIVE. NO RESPIRATORY DISTRESS. NO S/S OF PAIN. ENDORSED TO MORNING SHIFT NURSE FOR CONTINUITY OF CARE.
--- NOTE | 2019-08-24 07:30 | NUR ---
RN AM NOTES RECEIVED PT IN BED, ALERT, AWAKE, CONFUSED. SCREAMS, ON 5LITERS, NASAL CANULA, TOLERATING WELL, NO DISTRESS NOTED. SINUS RHYTHM ON TELE WITH BBB. NO SIGNS OF PAIN, MICHELE PICC LINE WITH NS AT 100 ,L/HR INFUSING WELL, SITE CLEAR, WEISS CATH IN PLACE, DRAINING URINE. PT NPO, WITH GT TO LIS. ALL NEEDS WILL BE ATTENDED TO, SAFETY MEASURES TAKEN, BED IN LOW POSITION, SIDE RAILS UP, CALL LIGHT WITHIN REACH. WILL CONT TO MONITOR.
[2019-08-24 07:53] LABS: ALBUMIN 1.7 g/dL (3.4-5.0); BILIRUBIN,TOTAL 0.3 mg/dL (0.2-1.0); CALCIUM, SERUM 7.6 mg/dL (8.5-10.1); CREATININE 1.1 mg/dL (0.6-1.3); MAGNESIUM 2.5 mg/dL (1.8-2.4); PHOSPHORUS 2.7 mg/dL (2.5-4.9); TOTAL PROTEIN, SERUM 5.3 g/dL (6.4-8.2)
[2019-08-24 07:54] LABS: POTASSIUM 2.8 mmol/L (3.5-5.1)
--- NOTE | 2019-08-24 08:08 | NUR ---
RN NOTES POTASSIUM LEVEL AT 2.8. DONNA MARIE INJECTION MOLDING ENGINEER NOTIFIED, ORDERED FOR RE DRAW. PT RECEIVED A TOTAL OF 10 NAGS KCL YESTERDAY.
[2019-08-24] MEDS: LEVETIRACETAM SOL (5 ML) 100 MG/ML UDC GT SCH ×2 (08:25→21:50)
[2019-08-24] MEDS: HYDROCORTISONE SOD SUCCINATE 100 MG/2 ML VIAL IV SCH ×2 (08:25→16:15)
[2019-08-24] MEDS: AMIODARONE HCL 200 MG TABLET PO SCH (08:25)
[2019-08-24] MEDS: HEPARIN SODIUM, PORCINE 5000 UNITS/1 ML VIAL SQ SCH ×2 (08:27→21:51)
--- NOTE | 2019-08-24 09:30 | NUR ---
RN NOTES DUE MEDS GIVEN. DONNA MARIE NOTIFIED POTASSIUM RE DRAW - 2.7. PER HIM HE WILL SEE THE PATIENT FIRST
[2019-08-24] MEDS: POTASSIUM CL. PREMIX PERIPHER. 50 ML IV SCH ×6 (11:50→17:18)
[2019-08-24] MEDS: IV D5W 1,000 ML IV PRN (11:51)
[2019-08-24] MEDS: HYDROCODONE/APAP 5/325MG 1 EACH TABLET PO PRN (13:12)
[2019-08-24] MEDS: SOD FERRIC GLUC 125 MG in IV NS 0.9% 100 ML IV SCH (14:53)
[2019-08-24] MEDS ORDERED: LORAZEPAM INJ 2 MG/ML VIAL IV PRN (18:00)
--- NOTE | 2019-08-24 18:31 | NUR ---
RN CLOSING NOTES PT RESTING IN BED, ASLEEP, AROUSES TO NAME AND TOUCH, CONFUSED. SCREAMS SOMETIMES,ON 5 LITERS, NASAL CANULA, TOLERATING WELL, NO DISTRESS NOTED. SINUS RHYTHM ON TELE WITH BBB. NO SIGNS OF PAIN, MICHELE PICC LINE WITH D5W AT 100 ML/HR INFUSING WELL, SITE CLEAR, WEISS CATH IN PLACE, DRAINING URINE, 850 ML OUTPUT. ALL NEEDS ATTENDED TO, SAFETY MEASURES TAKEN, BED IN LOW POSITION, SIDE RAILS UP, TURNED AND REPOSITIONED Q2 HOURS, PM CARE DONE, CALL LIGHT WITHIN REACH. WILL ENDORSE TO NEXT SHIFT FOR LUIS FERNANDO. GAVE 6 BAGS OF POTASSIUM CHLORIDE. PER DONNA TO START GT FEEDING JEVITY 1.2 AT 20 ML/HR. CALLED TO DIETARY.
[2019-08-24] MEDS ORDERED: MAGNESIUM CITRATE 296 ML BOTTLE PO ONE (19:00)
[2019-08-24] MEDS ORDERED: NA PHOS,M-B/NA PHOS,DI-BA 1 EA ENEMA RC PRN (19:00)
--- NOTE | 2019-08-24 19:30 | NUR ---
ORACLE DEVELOPER NOTE PATIENT REPORT GIVEN BEDSIDE. PATIENT IN BED SLEEPING. NO S/S OF RESP OR CARDIAC DISTRESS. PATIENT HR [address] AV BLOCK ON THE MONITOR. PATIENT O2 SATURATION 94 ON 5L. PATIENT DROWSY. PATIENT HAD MICHELE PICC LINE PATENT AND INTACT NO S/S OF INFECTION AND INFILTRATION. PATIENT WEISS CATH DRAINING TO GRAVITY. PATIENT ON D5W RUNNING 100 MLS AN HOUR. SAFETY PRECAUTIONS IN PLACE, SIDE RAILS UP X 2, BED IN LOWEST LOCKED POSITION. RN WILL CONTINUE TO MONITOR FOR CHANGES.
[2019-08-24] MEDS: METOCLOPRAMIDE HCL 10 MG/2 ML VIAL IV SCH (19:34)
[2019-08-24] MEDS: JEVITY 1.2 CAL 1,000 ML BOTTLE GT PRN (20:02)
[2019-08-24] MEDS: TAMSULOSIN 0.4 MG CAP.SR.24H GT SCH (21:51)
[2019-08-25] VITALS: BP 123/56
--- NOTE | 2019-08-25 | NUR ---
MEDICAL RECORD TRANSCRIBER NOTE REPORT GIVEN TO MADELYN, TRANSFER OF CARE GIVEN OVER.
[2019-08-25] MEDS: METOCLOPRAMIDE HCL 10 MG/2 ML VIAL IV SCH ×4 (01:36→18:13)
[2019-08-25] MEDS: MEROPENEM 500 MG in IV NS 0.9% 50 ML IV SCH (01:36)
[2019-08-25] MEDS: IV D5W 1,000 ML IV PRN ×2 (01:39→19:51)
[2019-08-25 04:00] VITALS: BP 131/69
[2019-08-25 07:12] LABS: CALCIUM, SERUM 7.7 mg/dL (8.5-10.1)
[2019-08-25 08:00] VITALS: BP 120/65
[2019-08-25] MEDS: LEVETIRACETAM SOL (5 ML) 100 MG/ML UDC GT SCH ×2 (08:52→20:59)
[2019-08-25] MEDS: AMIODARONE HCL 200 MG TABLET PO SCH (08:56)
[2019-08-25] MEDS: HEPARIN SODIUM, PORCINE 5000 UNITS/1 ML VIAL SQ SCH ×2 (08:58→21:01)
[2019-08-25] MEDS: POTASSIUM CHLORIDE 20 MEQ POWDER PACKET GT SCH ×3 (11:58→15:37)
[2019-08-25] MEDS: HYDROCORTISONE SOD SUCCINATE 100 MG/2 ML VIAL IV SCH ×2 (11:58→18:10)
[2019-08-25 12:00] VITALS: BP 140/72
[2019-08-25] MEDS ORDERED: MEROPENEM 1 G in IV NS 0.9% 100 ML IV SCH (13:00)
[2019-08-25] MEDS: CEFEPIME 1 GM in IV D5W 50 ML IV SCH (15:38)
[2019-08-25 16:00] VITALS: BP 115/75
[2019-08-25] MEDS: SOD FERRIC GLUC 125 MG in IV NS 0.9% 100 ML IV SCH (16:32)
--- NOTE | 2019-08-25 19:00 | NUR ---
RN OPENING NOTES: PATIENT AWAKE AND VERBALLY RESPONSIVE. NO RESPIRATORY DISTRESS. NO PAIN. ON O2 AT 2LPM VIA NC, SATTING 95%. WEISS PATENT AND DRAINING CLEAR YELLOW URINE. SAFETY PRECAUTIONS IMPLEMENTED. BED LOCKED AND IN LOWEST POSITION. CALL LIGHT PLACED WITHIN REACH. WILL CONT. TO MONITOR. Addendum: 08/25/19 at 2009 by CARL KRAUS RN ON CARDIOLOGY SPECIALIST SHOWING SR WITH BBB, HR 70s. MICHELE PICC LINE INTACT, PATENT, AND FLUSHING WELL.
--- NOTE | 2019-08-25 19:30 | NUR ---
TELE NOTES RN CLOSING PATIENT IS AWAKE AND VERBALLY RESPONSIVE. PATIENT ONLY SPEAKS YI . PATIENT A/O X1 PATIENT IS AWARE OF HIS NAME BUT DOES NOT KNOW WHY HE IS CURRENTLY IN THE HOSPITAL OR WHERE IS HE AT. PATIENT IS SATURATING WELL WITH NO SIGNS OF RESPIRATORY DISTRESS. PATIENT SHOWS NO SIGNS OF PAIN. PATIENT IS ON O2 AT 2L. PATIENT WEISS IS PATENT AND DRAINING YELLOW URINE. PATIENT REPOSITION Q2H, HOSPITAL POLICY SAFETY PRECAUTIONS IMPLEMENTED. BED LOCKED AND IN LOWEST POSITION. CALL LIGHT PLACED WITH IN REACH. ENDORSED TO PM SHIFT.
[2019-08-25 20:00] VITALS: BP 140/68
[2019-08-25] MEDS: TAMSULOSIN 0.4 MG CAP.SR.24H GT SCH (21:00)
[2019-08-26] VITALS: BP 135/70
[2019-08-26] MEDS: METOCLOPRAMIDE HCL 10 MG/2 ML VIAL IV SCH ×4 (01:16→19:33)
[2019-08-26] MEDS: CEFEPIME 1 GM in IV D5W 50 ML IV SCH ×2 (01:16→14:41)
[2019-08-26 04:00] VITALS: BP 144/84
[2019-08-26] MEDS: JEVITY 1.2 CAL 1,000 ML BOTTLE GT PRN (04:13)
[2019-08-26] MEDS: IV D5W 1,000 ML IV PRN ×2 (06:10→17:25)
--- NOTE | 2019-08-26 07:00 | NUR ---
REPRODUCTION ORDER PROCESSOR OPENING NOTES PATIENT IS AWAKE AND VERBALL RESPONSIVE, PATIENT IS AOX1 PATIENT ONLY SPEAKS ARMENIA. PATIENT IS AWARE OF HIS NAME BUT NOT ENVIORMENT. PATIENT IS SATURATING WELL WITH NO SIGNS OF RESPIRATORY DISTRESS PATIENT SHOWS NO SIGNS OF PAIN. PATIENT IS ON O2 AT 2L . WEISS IS PATENT AND DRAINING CLEAN YELLOW . WILL CONTINUE WITH PLAN OF CARE, TREATMENT PLAN, MEDICATION MANAGEMENT. HOSPITAL POLICY SAFETY PRECAUTION IMPLEMENTED. BED LOCKED AND IN LOWEST POSITON . CALL LIGHT WITH IN REACH
[2019-08-26 07:15] LABS: CALCIUM, SERUM 7.7 mg/dL (8.5-10.1); POTASSIUM 3.4 mmol/L (3.5-5.1)
--- NOTE | 2019-08-26 07:15 | NUR ---
RN CLOSING NOTES: PATIENT ASLEEP BUT EASILY AWAKENED. A/OX1. NO RESPIRATORY DISTRESS. NO PAIN. ENDORSED TO AM SHIFT NURSE FOR CONTINUITY OF CARE.
[2019-08-26 08:00] VITALS: BP 150/65
[2019-08-26] MEDS: LEVETIRACETAM SOL (5 ML) 100 MG/ML UDC GT SCH ×2 (08:47→20:16)
[2019-08-26] MEDS: HYDROCORTISONE SOD SUCCINATE 100 MG/2 ML VIAL IV SCH ×2 (08:47→17:20)
[2019-08-26] MEDS: AMIODARONE HCL 200 MG TABLET PO SCH (08:48)
[2019-08-26] MEDS: HEPARIN SODIUM, PORCINE 5000 UNITS/1 ML VIAL SQ SCH (08:59)
[2019-08-26] MEDS ORDERED: POTASSIUM CHLORIDE 20 MEQ POWDER PACKET GT SCH (10:00)
[2019-08-26 12:00] VITALS: BP 142/72
[2019-08-26] MEDS: SOD FERRIC GLUC 125 MG in IV NS 0.9% 100 ML IV SCH (13:11)
[2019-08-26 16:00] VITALS: BP 139/66
--- NOTE | 2019-08-26 19:00 | NUR ---
MS RN CLOSING NOTES. PATIENT IS AWAKE AND VERBAL RESPONSIVE. PATIENT IS SATURATING WELL AT 100 PERCENT. PATIENT IS A/0 X1 IS AWARE OF HIS NAME PATIENT HAS A MICHELE PICC LINE INTACT C/D/I FLUSHED. PATIENT WEISS IS PATENT AND INTACT . WOUND CARE WAS PROVIDED WELL TURNED AND REPOSITION Q2H. PATIENT BED IS AT LOWEST POSITION, CALL LIGHT WITH IN REACH SAFETY MAINTAINED.
--- NOTE | 2019-08-26 19:10 | NUR ---
RN carol opening notes Received Pt from morning nurse. Pt is resting in bed comfortably. Respiration is normal in 4 L NC. O2 sat is 100%. No SOB. No nausea or vomiting. No S/s of distress noted. IV sites at MICHELE picc line is clean, intact, patent and infusing well D5W @ 100 ml/hr. GT feeding is intact, patent and infusing jevity 1.2 @ 55 ml/hr with 0 residual. Pt tolerated well. Elizabeth cath is intact, patent and draining clear yellow urine. Safety precautions is maintained. Bed at low position, brakes locked, side rails upx3 and call light is within reach. will continue to monitor.
[2019-08-26 20:00] VITALS: BP 150/84
[2019-08-26] MEDS: TAMSULOSIN 0.4 MG CAP.SR.24H GT SCH (21:22)
[2019-08-27] VITALS (7 sets, daily range): BP systolic 138–147; BP diastolic 60–70
[2019-08-27] MEDS: METOCLOPRAMIDE HCL 10 MG/2 ML VIAL IV SCH ×3 (00:09→12:01)
[2019-08-27] MEDS: JEVITY 1.2 CAL 1,000 ML BOTTLE GT PRN (00:17)
[2019-08-27] MEDS: IV D5W 1,000 ML IV PRN (04:33)
--- NOTE | 2019-08-27 07:00 | NUR ---
RN medsurg closing notes Pt is resting in bed comfortably. Respiration is normal in 4 L NC. No SOB. No nausea or vomiting. No s/s of distress noted. MICHELE piccline is clean, intact, patent and infusing well D5W @ 100 ml/hr. Gtube feeding is intact, patent and running jevity 1.2cal @ 55 ml/hr with 0 residual. Pt tolerated well. Routine meds were given as ordered. Skin care provided. Kept Pt clean, dry and comfortable. All needs met and attended. Turned and repositioned Q 2hr. Safety precautions is maintained. Bed at low position, brakes locked, side rails upx3 and call light is within reach. Will endorse to morning nurse for LUIS FERNANDO.
[2019-08-27 07:09] LABS: CALCIUM, SERUM 7.3 mg/dL (8.5-10.1); CREATININE 0.8 mg/dL (0.6-1.3); POTASSIUM 2.9 mmol/L (3.5-5.1)
--- NOTE | 2019-08-27 08:00 | NUR ---
RN NOTES RECEIVED PATIENT IN THE BED A/O X1 WITH CONFUSION ON O2-4LNC. NO ACUTE RESPIRATORY DISTRESS, BREATHING UNLABORED. PATIENT ON G-TUBE FEEDING JEVITY 1.2 55 ML/HR, RESIDUAL 10 CC, PLACEMENT CHECKED, DARNING F/C LIGHT YELLOW OUTPUT. RIGHT UPPER PICC LINE INTACT INFUSING D5W 100 ML/HR INTACT. ADMINISTERED SCHEDULED MEDICATION VIA G-TUNE. KEEP HOB ELEVATED FOR ASPIRATION PRECAUTION. ASSIST PATIENT TURN AND REPOSTION Q 2 HR. CALL LIGHT WITHIN TO REACH. SAFETY PRECAUTION MAINTAINED ALL THE TIME.
[2019-08-27] MEDS: HYDROCORTISONE SOD SUCCINATE 100 MG/2 ML VIAL IV SCH (08:48)
[2019-08-27] MEDS: LEVETIRACETAM SOL (5 ML) 100 MG/ML UDC GT SCH (08:48)
[2019-08-27] MEDS: AMIODARONE HCL 200 MG TABLET PO SCH (08:48)
[2019-08-27] MEDS ORDERED: POTASSIUM CHLORIDE 20 MEQ POWDER PACKET GT ONE (12:00)
[2019-08-27] MEDS ORDERED: POTASSIUM CHLORIDE 20 MEQ POWDER PACKET PO SCH (12:00)
--- NOTE | 2019-08-27 12:00 | NUR ---
RN NOTES PATIENT GOING TO D/C BACK TO SNF PER HOSPITALIST ORDER CARMELLA THOMPSON. FAMILY NOTIFIED.
[2019-08-27] MEDS: SOD FERRIC GLUC 125 MG in IV NS 0.9% 100 ML IV SCH (13:47)
--- NOTE | 2019-08-27 15:50 | NUR ---
BUTTON PUNCHER NOTES PATIENT DISCHARGE AT THIS TIME GOING BACK TO SNF. PATIENT STABLE, ON O2-4L NC, NO ACUTE RESPIRATORY DISTRESS, RESPIRATION UNLABORED, A/O X1 WITH CONFUSION. MEDICATION ADMINISTERED VIA GT, KEEP HOB ELEVATED FOR ASPIRATION PRECAUTION. WEISS CATHETER DARNING LIGHT YELLOW OUTPUT. MED RECONCILIATION AND DISCHARGE ORDER REVIEWED AND EXPLAINED TO. REPORT GIVEN SNF FRANCO GOYAL. RN VERBALIZED UNDERSTANDING. PATIENT HAS NO BELONGING. FAMILY AWARE OF DISCHARGE PLANING. PATIENT WILL FOLLOW SNF MERCHANDISING PROFESSOR. PATIENT UNABLE TO SIGN PAPERWORK DO TO CONFUSION. CO SIGN WITH CO WORKER RN EDWIN. PICTURE TAKEN. PATIENT PHOTO INTERN BY AMBULANCE.
== END 2019-08-27 16:00 | DRG 871 ==
LOC: ER 22:34 → EDBD 22:34 → TELE 08-19 03:19 → MED 08-19 08:44 → ICU 08-19 18:31 → TELE1 08-23 10:35 → MEDSG1 08-26 10:07
PROVIDERS: ATTEND Nurse Practitioner Acute Care
PROC: 02HV33Z Insertion of Infusion Device into Superior Vena Cava, Percutaneous Approach (ICD-10-PCS; principal; 2019-08-20)
PROC: B548ZZA Ultrasonography of Superior Vena Cava, Guidance (ICD-10-PCS; 2019-08-20)
PROC: 05HB33Z Insertion of Infusion Device into Right Basilic Vein, Percutaneous Approach (ICD-10-PCS; 2019-08-26)
DX: A41.9 Sepsis, unspecified organism (principal); R65.21 Severe sepsis with septic shock; J96.01 Acute respiratory failure with hypoxia; G92 Toxic encephalopathy; N17.0 Acute kidney failure with tubular necrosis; J69.0 Pneumonitis due to inhalation of food and vomit; E43 Unspecified severe protein-calorie malnutrition; J15.1 Pneumonia due to Pseudomonas; N39.0 Urinary tract infection, site not specified; K56.7 Ileus, unspecified; J84.9 Interstitial pulmonary disease, unspecified; E87.0 Hyperosmolality and hypernatremia; K56.600 Partial intestinal obstruction, unspecified as to cause; F03.90 Unspecified dementia, unspecified severity, without behavioral disturbance, psychotic disturbance, mood disturbance, and anxiety; G40.909 Epilepsy, unspecified, not intractable, without status epilepticus; Z85.048 Personal history of other malignant neoplasm of rectum, rectosigmoid junction, and anus; Z85.46 Personal history of malignant neoplasm of prostate; Z93.1 Gastrostomy status; N40.1 Benign prostatic hyperplasia with lower urinary tract symptoms; R33.9 Retention of urine, unspecified; Z87.820 Personal history of traumatic brain injury; I25.119 Atherosclerotic heart disease of native coronary artery with unspecified angina pectoris; K21.9 Gastro-esophageal reflux disease without esophagitis; R13.10 Dysphagia, unspecified; N18.9 Chronic kidney disease, unspecified; N28.1 Cyst of kidney, acquired; I13.10 Hypertensive heart and chronic kidney disease without heart failure, with stage 1 through stage 4 chronic kidney disease, or unspecified chronic kidney disease; I70.0 Atherosclerosis of aorta; E78.5 Hyperlipidemia, unspecified; E87.5 Hyperkalemia; Z79.51 Long term (current) use of inhaled steroids; Z79.899 Other long term (current) drug therapy; B96.4 Proteus (mirabilis) (morganii) as the cause of diseases classified elsewhere; K40.90 Unilateral inguinal hernia, without obstruction or gangrene, not specified as recurrent; K44.9 Diaphragmatic hernia without obstruction or gangrene; G47.419 Narcolepsy without cataplexy; D64.9 Anemia, unspecified; E87.6 Hypokalemia; I48.0 Paroxysmal atrial fibrillation; E87.70 Fluid overload, unspecified; Z89.021 Acquired absence of right finger(s); R25.1 Tremor, unspecified; K59.00 Constipation, unspecified
CPT/HCPCS: 31720; 36415; 36569; 36600; 71045-TC; 74018; 74250-TC; 76770-TC; 80048-TC; 80053-TC; 80061-TC; 80202-TC; 81000-TC; 82533; 82728-TC; 82803-TC; 83540-TC; 83735-TC; 83880; 84100-TC; 84132-TC; 84443-TC; 84484-TC; 85025-TC; 85610-TC; 87040-TC; 87070-TC; 87081-TC; 87086-TC; 87186-TC; 93307-TC; 94760-TC; 94799-TC; A4216; C1751; G0378; J0692; J0696; J1644; J1720; J1940; J1953; J2060; J2185; J2405; J2765; J2916; J3370; J3480; J7030; J7040; J7042; J7060; J7070; P9047; Q9963

== ENCOUNTER 2019-10-08 00:04 | Inpatient (IN) | payer MEDICARE, OTHER ==
[2019-10-08] VITALS (77 sets, daily range): BP systolic 69–122; BP diastolic 36–70
[~2019-10-08] VITALS: Ht 170.2 cm; Wt 75.3 kg
[~2019-10-08 00:04] MED LIST: ACET325C7 GT; ALBU2.5V13 NEB; AMIO200T4 PO; AMLO5TAB9 PO; ARMO150T2 PO; ATOR20TA PO; BISA-79 GT; CALC-770 PO; CRAN425C6 PO; L. A1CAP11 PO; LEVE500T20 PO; LOSA50TA39 PO; METO50TA16 PO; OMEP20TA5 PO; TAMS-12 GT
--- NOTE | 2019-10-08 00:10 | NUR ---
PT ONURRA FROM SNF C/O NAUSEA/VOMITTING X1 DAY. PT AWAKE, NOT ALERT. NOTED TACHYCARDIA, MD AWARE. SKIN WARM AND INTACT. NO ACUTE DISTRESS NOTED AT THIS TIME. PLACED IN GOWN AND ON CONTINUOUS PUBLICITY AGENT AND PULSE OX, WILL CONTINUE TO MONITOR
[2019-10-08] MEDS ORDERED: IV NS 0.9% 1,000 ML BAG IV ONE ×2 (00:30→03:30)
[2019-10-08] MEDS ORDERED: ONDANSETRON HCL/PF 4 MG/2 ML VIAL IVP ONE (00:30)
[2019-10-08] MEDS ORDERED: ONDANSETRON HCL/PF 4 MG/2 ML VIAL ONE (00:30)
[2019-10-08] MEDS ORDERED: PANTOPRAZOLE 40 MG VIAL IV ONE (00:30)
[2019-10-08] MEDS ORDERED: PANTOPRAZOLE 40 MG VIAL ONE (00:30)
--- NOTE | 2019-10-08 00:50 | NUR ---
IV INITIATED L HAND 20G. UNABLE TO DRAW LABS FROM SITE. ABRASIVE GRADER AT BEDSIDE FOR BLOOD DRAW. IV INTACT AND PATENT, MEDICATED PER MD ORDER.
--- NOTE | 2019-10-08 01:00 | NUR ---
RADIOLOGY AT BEDSIDE FOR CXR
[2019-10-08 01:04] LABS: BASOPHILS % (AUTO) 0.3 % (0.0-2.0); HEMATOCRIT 35 % (39-51); HEMOGLOBIN 11.4 g/dL (13.5-17.5); LYMPHOCYTES # (AUTO) 0.9 /CMM (0.8-4.8); LYMPHOCYTES % (AUTO) 10.5 % (20.0-44.0); MEAN CORPUSCULAR HGB CONC 32 g/dl (31.0-36.0); MEAN CORPUSCULAR VOLUME 85 fL (80-96); MONOCYTES # (AUTO) 0.3 /CMM (0.1-1.30); MONOCYTES % (AUTO) 3.9 % (2.0-12.0); NEUTROPHILS # (AUTO) 7.5 /CMM (1.8-8.9); NEUTROPHILS % (AUTO) 85.3 % (43.0-81.0); PLATELET COUNT (AUTO) 375 /CMM (150-450); RED BLOOD CELL COUNT(AUTO) 4.13 MIL/uL (4.5-6.0); WHITE BLOOD COUNT (AUTO) 8.8 K/uL (4.3-11.0)
[2019-10-08 01:14] LABS: CALCIUM, SERUM 8.6 mg/dL (8.5-10.1); CARBON DIOXIDE 21 mmol/L (21-32); CHLORIDE 95 mmol/L (98-107); CREATININE 3.2 mg/dL (0.6-1.3); GLUCOSE 151 mg/dL (74-106); POTASSIUM 4.3 mmol/L (3.5-5.1); SODIUM SERUM 133 mmol/L (136-145); UREA NITROGEN, BLOOD 53 mg/dL (7-18)
[2019-10-08 01:30] LABS: ALANINE AMINOTRANSFERASE 31 U/L (12-78); ALBUMIN 2.2 g/dL (3.4-5.0); ALKALINE PHOSPHATASE 108 U/L (46-116); ASPARTATE AMINOTRANSFERASE 51 U/L (15-37); BILIRUBIN,DIRECT 0.2 mg/dL (0.0-0.2); BILIRUBIN,TOTAL 0.4 mg/dL (0.2-1.0); LIPASE 54 U/L (73-393); TOTAL PROTEIN, SERUM 6.9 g/dL (6.4-8.2)
[2019-10-08] MEDS ORDERED: LORAZEPAM INJ 2 MG/ML VIAL ONE (01:34)
[2019-10-08] MEDS ORDERED: LIDOCAINE 2% JEL UROJET 10 ML MM ONE (01:37)
--- NOTE | 2019-10-08 01:45 | NUR ---
WEISS CATH INSERTED, NO URINE OUTPUT. ER AWARE
[2019-10-08] MEDS ORDERED: CEFTRIAXONE 1GM BAG (ER ONLY) 50 ML IV ONE (01:49)
[2019-10-08] MEDS ORDERED: ASCO500T9 GT (01:53)
[2019-10-08] MEDS ORDERED: LEVE100S GT (01:53)
[2019-10-08] MEDS ORDERED: MULT-213 GT (01:53)
[2019-10-08] MEDS ORDERED: AMIN30LI2 GT (01:53)
[2019-10-08] MEDS ORDERED: CEFTRIAXONE 1GM BAG (ER ONLY) 1 GM/50 ML PIGGYBACK IV ONE (02:00)
[2019-10-08] MEDS ORDERED: LORAZEPAM INJ 2 MG/ML VIAL IV ONE (02:00)
--- NOTE | 2019-10-08 02:32 | NUR ---
NOTED HYPOTENSION AND DE SAT 85%. AWARE. RT AT BEDSIDE FOR NASOTRACH SUCTION. PT TOLERATED WELL.
--- NOTE | 2019-10-08 02:42 | NUR ---
RT AT BEDSIDE FOR ABG
--- NOTE | 2019-10-08 03:07 | NUR ---
DR. CASTRO ON THE PHONE WITH FAMILY MEMBER REGARDING PLAN OF CARE
--- NOTE | 2019-10-08 03:15 | NUR ---
RT AND DR. CASTRO AT BEDSIDE FOR INTUBATION
[2019-10-08] MEDS ORDERED: PROPOFOL 100 ML ONE (03:20)
[2019-10-08] MEDS ORDERED: PIPERACILLIN /TAZOBACTAM 3.375 G VIAL IV ONE (03:30)
[2019-10-08] MEDS ORDERED: ETOMIDATE 2 MG/ML VIAL IV ONE (03:30)
[2019-10-08] MEDS ORDERED: PIPERACILLIN /TAZOBACTAM 3.375 G in IV D5W 50 ML IV ONE (03:30)
[2019-10-08] MEDS ORDERED: VANCOMYCIN 1 GM VIAL ONE (03:30)
[2019-10-08] MEDS ORDERED: ROCURONIUM BROMIDE 100 MG/10 ML VIAL IV ONE (03:30)
[2019-10-08] MEDS ORDERED: VANCOMYCIN 1 GM in IV D5W 250 ML IV ONE (03:30)
--- NOTE | 2019-10-08 03:30 | NUR ---
PER VERBAL MD ORDER, WILL HOLD PROPOFOL IV
--- NOTE | 2019-10-08 03:35 | NUR ---
RADIOLOGY AT BEDSIDE FOR CXR
[2019-10-08 03:39] LABS: ABG BASE EXCESS -9.5 mmol/L; ABG OXYGEN SATURATION 89.4 % (92.0-98.5); ABG PCO2 33.6 mmHg (35.0-45.0); ABG PH 7.296 (7.350-7.450); ABG PO2 65.1 mmHg (75.0-100.0); COHb 1.4 % (0.5-1.5); MetHb 0.3 % (0.0-1.5); O2Hb 87.9 % (94.0-97.0); VENT MODE, BG SIMPLE MASK
--- NOTE | 2019-10-08 03:41 | NUR ---
DIRECTOR FOUNDATION AT BEDSIDE FOR BLOOD DRAW
[2019-10-08] MEDS ORDERED: ACETAMINOPHEN 650 MG/SUPP.RECT RC ONE ×2 (03:43→04:00)
--- NOTE | 2019-10-08 03:47 | NUR ---
RT PT INTUBATED WITH 7.5 ETT @24CM LIP. ETT PATENT AND SECURE VIA ANCHOR FAST. BILATERAL BREATH SOUNDS AND CHEST RISE/FALL NOTED. POSITIVE C02 COLOR CHANGE. CHEST XRAY SHOW PROPER PLACEMENT PER MD. PT PLACED ON [facility] VENT WITH NOTED SETTING. MD AWARE AND APPROVED SETTING. VENT TO RED OUTLET, ALARM SET AND AUDIBLE. SUCTIONED MOD AMOUNT OF COFFEE GROUND SECRETIONS. CONTINUE CURRENT CARE PLAN AND MONITOR FOR ANY CHANGES. Addendum: 10/08/19 at 0356 by SHAGGY SAM RT Amended: Links added.
--- NOTE | 2019-10-08 04:00 | NUR ---
DR. CASTRO ON THE PHONE WITH DR. PAPPAS
[2019-10-08] MEDS: PROPOFOL 100 ML IV PRN ×2 (04:05→14:30)
--- NOTE | 2019-10-08 04:18 | NUR ---
REPORT GIVEN TO ED, RN FOR LUIS FERNANDO
[2019-10-08 04:27] LABS: APPEARANCE,URINE CLOUDY (CLEAR); BILIRUBIN,URINE NEGATIVE (NEGATIVE); BLOOD, URINE LARGE Ery/uL (NEGATIVE); COLOR,URINE YELLOW (YELLOW); KETONES,URINE NEGATIVE (NEGATIVE); LEUKOCYTE ESTERASE ,URINE NEGATIVE (NEGATIVE); NITRITE, URINE NEGATIVE (NEGATIVE); PROTEIN,URINE 100 mg/dl (NEGATIVE); UGLUCOSE NEGATIVE (NEGATIVE); UROBILINOGEN,URINE 0.2 EU/dL (0.2)
[2019-10-08] MEDS ORDERED: MEROPENEM 500 MG VIAL IV ONE (04:27)
[2019-10-08] MEDS ORDERED: LEVETIRACETAM (500MG) 1,000 MG in IV NS 0.9% 100 ML IV SCH ×2 (04:30→21:00)
[2019-10-08] MEDS ORDERED: ONDANSETRON HCL/PF 4 MG/2 ML VIAL IVP PRN (04:30)
[2019-10-08] MEDS ORDERED: ACETAMINOPHEN 650 MG/SUPP.RECT RC PRN (04:30)
[2019-10-08] MEDS ORDERED: MORPHINE SULFATE INJ 2 MG/ML DISP.SYRIN IV PRN (04:30)
[2019-10-08] MEDS ORDERED: MEROPENEM 500 MG in IV NS 0.9% 50 ML IV SCH (04:30)
[2019-10-08 04:36] LABS: BACTERIA,URINE None seen /HPF (None Seen); SQUAMOUS EPITHELIAL CELL,UR Few /HPF (None Seen); WBC,URINE 0-2 /HPF (0-3)
--- NOTE | 2019-10-08 04:43 | NUR ---
PT TRANSFERRED PER ACLS PROTOCOL WITH EMT, RN, RT AT BEDSIDE
[2019-10-08] MEDS ORDERED: LEVETIRACETAM (500MG) 500 MG/5 ML VIAL IV ONE (04:47)
[2019-10-08] MEDS: IV 1/2NS 1000 ML 1,000 ML IV PRN ×2 (04:56→14:30)
[2019-10-08] MEDS ORDERED: NOREPINEPHRINE 8 MG in IV D5W 500 ML IV PRN (05:30)
[2019-10-08 05:41] LABS: ABG BASE EXCESS -9.1 mmol/L; ABG OXYGEN SATURATION 98.5 % (92.0-98.5); ABG PCO2 57.5 mmHg (35.0-45.0); ABG PH 7.149 (7.350-7.450); ABG PO2 180.5 mmHg (75.0-100.0); COHb 1.2 % (0.5-1.5); MetHb 0.1 % (0.0-1.5); O2Hb 97.2 % (94.0-97.0); PEEP,BG 0 cm H2O; SITE, ABG Right Radial; VENT MODE, BG AC 14/450/100/+0; VT, ABG 450 mL
[2019-10-08] MEDS ORDERED: NOREPINEPHRINE 4 MG/4 ML AMPUL IV ONE (05:51)
[2019-10-08] MEDS: NOREPINEPHRINE 8 MG in IV D5W 500 ML IV PRN ×2 (05:56→11:48)
[2019-10-08] MEDS ORDERED: FEE PK DOSING 1 MIN EA MC ONE (06:16)
--- NOTE | 2019-10-08 07:00 | NUR ---
PHOTO GRAPHICS LIBRARIAN PT WAS TRANSFERRED FROM ER TO ICU WITH DIAGNOSIS RESPIRATORY FAILURE, S/P ASPIRATION, SEPSIS. STAT INTUBATION WAS DONE IN ER. PT IS ON VENTILATOR AC MODE. STAT ABG DONE & VENT. SETTING WAS ADJUSTED ACCORDING MD ORDER. PT IS SEDATED WITH PROPOFOL DRIP. IV NS BOLUS 2.2 L. GIVEN. F/C WAS INSERTED, DRAINS SMALL AMT. OF MARIANNA URINE. PT GOT HYPOTENSIVE. STARTED LEVOPHED DRIP-TITRATED TO KEEP SBP>90. FOR SEIZURE PRECAUTIONS GIVEN KEPPRA IVPB. PT IS ON ANTIBIOTICS IVPB'S FOR SEPSIS. /LACTIC ACID-7.2, PROCALCITONIN 38.63./ WOUNDS CARE DONE, PICTURES TAKEN, DRESSING APPLIED. SCOPE-A.FIB. PT NEEDS PICC-LINE INSERTION. REPORT GIVEN TO MICHOACANO DAY SHIFT RN FOR LUIS FERNANDO.
--- NOTE | 2019-10-08 07:10 | NUR ---
RN INITIAL NOTES RECEIVED PT INTUBATED, ON VENT. NO RESPIRATORY DISTRESS NOTED. NO SOB NOTED. HOB ELEVATED. NO SIGNS OF PAIN NOTED. IV LINES IN PLACE. ON LEVO AT 4MCG/MIN. WILL TITRATE ACCORDINGLY. IVF INFUSING. FOR PICC INSERTION. FC IN PLACE. NO HEMATURIA NOTED. BLE ELEVATED. REPOSITIONED. WILL MONITOR
[2019-10-08] MEDS ORDERED: ROCURONIUM BROMIDE 50 MG/5 ML ONE (08:00)
[2019-10-08] MEDS ORDERED: ETOMIDATE 2 MG/ML VIAL ONE (08:00)
[2019-10-08 08:24] LABS: CARBON DIOXIDE 21 mmol/L (21-32); CHLORIDE 99 mmol/L (98-107); CREATININE 2.7 mg/dL (0.6-1.3); GLUCOSE 175 mg/dL (74-106); POTASSIUM 4.5 mmol/L (3.5-5.1); SODIUM SERUM 134 mmol/L (136-145); UREA NITROGEN, BLOOD 54 mg/dL (7-18)
[2019-10-08 08:27] LABS: ALANINE AMINOTRANSFERASE 25 U/L (12-78); ALBUMIN 1.6 g/dL (3.4-5.0); ALKALINE PHOSPHATASE 73 U/L (46-116); ASPARTATE AMINOTRANSFERASE 59 U/L (15-37); BILIRUBIN,DIRECT 0.2 mg/dL (0.0-0.2); BILIRUBIN,TOTAL 0.4 mg/dL (0.2-1.0); TOTAL PROTEIN, SERUM 5.4 g/dL (6.4-8.2)
[2019-10-08] MEDS: PANTOPRAZOLE 40 MG VIAL IV SCH (08:27)
[2019-10-08] MEDS: HEPARIN SODIUM, PORCINE 5000 UNITS/1 ML VIAL SQ SCH ×2 (08:28→21:28)
[2019-10-08] MEDS: LEVETIRACETAM SOL (5 ML) 100 MG/ML UDC GT SCH ×2 (08:28→21:27)
[2019-10-08] MEDS: AMIODARONE HCL 200 MG TABLET GT SCH (08:28)
[2019-10-08] MEDS: HYDROCORTISONE SOD SUCCINATE 100 MG/2 ML VIAL IV SCH ×3 (08:59→16:39)
[2019-10-08 09:33] LABS: ABG BASE EXCESS -6.6 mmol/L; ABG OXYGEN SATURATION 97.4 % (92.0-98.5); ABG PCO2 28.5 mmHg (35.0-45.0); ABG PO2 102.8 mmHg (75.0-100.0); AaDO2 365.7 mmHg; COHb 1.8 % (0.5-1.5); MetHb 0.3 % (0.0-1.5); O2Hb 95.4 % (94.0-97.0); SITE, ABG Right Radial
[2019-10-08 10:29] LABS: APPEARANCE,URINE CLOUDY (CLEAR); BILIRUBIN,URINE NEGATIVE (NEGATIVE); BLOOD, URINE LARGE Ery/uL (NEGATIVE); COLOR,URINE YELLOW (YELLOW); KETONES,URINE NEGATIVE (NEGATIVE); LEUKOCYTE ESTERASE ,URINE NEGATIVE (NEGATIVE); NITRITE, URINE NEGATIVE (NEGATIVE); PROTEIN,URINE 30 mg/dl (NEGATIVE); UGLUCOSE NEGATIVE (NEGATIVE); UROBILINOGEN,URINE 0.2 EU/dL (0.2)
--- NOTE | 2019-10-08 10:30 | NUR ---
RN NOTES 1000 SEEN AND EXAMINED BY DR NARAYAN. UPDATED ON PT'S CONDITION. MD AWARE OF CURRENT LAB VALUES AND IMAGING. ON LEVO, TITRATED ACCORDINGLY. OFF SEDATION. PT OPEN EYES AND RESPONDS TO PAIN. WILL MONITOR 1030 SEEN AND EXAMINED BY DR JAIME. AWARE OF ABG RESULT. FI02 TITRATED. NO RESPIRATORY DISTRESS NOTED. ABG AND CXR IN AM. WILL MONITOR
[2019-10-08 10:35] LABS: BACTERIA,URINE Rare /HPF (None Seen); MUCUS,URINE Moderate /LPF (None Seen); SQUAMOUS EPITHELIAL CELL,UR 0-2 /HPF (None Seen); WBC,URINE 0-2 /HPF (0-3)
[2019-10-08 10:36] LABS: URINE AMORPHOUS URATE Many /HPF (None Seen)
[2019-10-08 10:48] LABS: CREATININE, URINE 65.3 MG/DL (30.0-125.0); URINE TOTAL PROTEIN 204.4 mg/dL (0-11.9)
[2019-10-08 10:52] LABS: EOSINOPHIL,URINE None Seen
[2019-10-08] MEDS: MEROPENEM 500 MG in IV NS 0.9% 50 ML IV SCH (16:39)
--- NOTE | 2019-10-08 18:14 | NUR ---
RN CLOSING NOTES PT REMAINS INTUBATED, ON VENT. NO RESPIRATORY DISTRESS NOTED. NO SOB NOTED. NO SIGNS OF PAIN NOTED. ON DIPRIVAN AND LEVOPHED, TITRATED ACCORDINGLY. IVF INFUSING. FC IN PLACE. KEPT CLEAN AND DRY. REPOSITIONED Q2. BLE ELEVATED. WILL ENDORSE FOR CONTINUITY OF CARE.
--- NOTE | 2019-10-08 19:30 | NUR ---
LIVE HANGER INITIAL SHIFT NOTES RECEIVED PATIENT IN BED, SEDATED ON DIPRIVAN GTT, CURRENTLY @ 5MCG. ALSO ON LEVOPHED GTT, CURRENTLY @ 14 MCG, WELL 1/2 NS @ 100ML/HR, ALL INFUSING THROUGH TRIPLE LUMEN RIGHT UPPER ARM PICC. ALL PORTS PATENT AND INTACT, FLUSHED WITH NS. WEISS CATHETER PATENT AND INTACT, DRAINING YELLOW/MARIANNA COLORED URINE WITH SEDIMENTS TO DRAINAGE BAG. BILATERAL SOFT WRIST RESTRAINTS IN PLACE FOR SAFETY DUE TO HIGH RISK OF SELF EXTUBATION. BED IN LOWEST AND LOCKED POSITION. WILL MONITOR CLOSELY
[2019-10-08] MEDS: NOREPINEPHRINE 16 MG in IV D5W 500 ML IV PRN (20:42)
[2019-10-09] VITALS (68 sets, daily range): BP systolic 90–130; BP diastolic 48–69
--- NOTE | 2019-10-09 | NUR ---
YARD WAREHOUSE WORKER NOTES PATIENT RESTING IN BED, APPEARS COMFORTABLE. REMAINS ORALLY INTUBATED ON MECHANICAL VENTILATION. REMAINS ON LEVOPHED GTT AND DIPRIVAN GTT. WILL CONTINUE TO CLOSELY MONITOR.
[2019-10-09] MEDS: IV 1/2NS 1000 ML 1,000 ML IV PRN (00:52)
[2019-10-09] MEDS: PROPOFOL 100 ML IV PRN ×3 (00:54→18:10)
--- NOTE | 2019-10-09 03:00 | NUR ---
TRANSCRIPTION SPECIALIST NOTES PATIENT WITH INCREASING AGITATION, MANIFESTED BY INCREASE IN RESPIRATORY RATE, FACIAL GRIMACE, AND FIGHTING AGAINST MECHANICAL VENTILATION. DIPRIVAN GTT INCREASED PER PROTOCOL ORDERED TO KEEP PATIENT SEDATED. WILL CONTINUE TO MONITOR AND TITRATE DRIPS ORDERED/NEEDED
[2019-10-09] MEDS: MEROPENEM 500 MG in IV NS 0.9% 50 ML IV SCH ×2 (04:28→17:33)
[2019-10-09 05:09] LABS: BASOPHILS % (AUTO) 0.1 % (0.0-2.0); HEMATOCRIT 25 % (39-51); HEMOGLOBIN 8.2 g/dL (13.5-17.5); LYMPHOCYTES # (AUTO) 0.3 /CMM (0.8-4.8); LYMPHOCYTES % (AUTO) 2.7 % (20.0-44.0); MEAN CORPUSCULAR HGB CONC 34 g/dl (31.0-36.0); MEAN CORPUSCULAR VOLUME 82 fL (80-96); MONOCYTES # (AUTO) 0.3 /CMM (0.1-1.30); MONOCYTES % (AUTO) 2.4 % (2.0-12.0); NEUTROPHILS # (AUTO) 11.1 /CMM (1.8-8.9); NEUTROPHILS % (AUTO) 94.8 % (43.0-81.0); PLATELET COUNT (AUTO) 219 /CMM (150-450); RED BLOOD CELL COUNT(AUTO) 3.01 MIL/uL (4.5-6.0); WHITE BLOOD COUNT (AUTO) 11.7 K/uL (4.3-11.0)
[2019-10-09 05:32] LABS: ALANINE AMINOTRANSFERASE 29 U/L (12-78); ALBUMIN 1.5 g/dL (3.4-5.0); ALKALINE PHOSPHATASE 61 U/L (46-116); ASPARTATE AMINOTRANSFERASE 64 U/L (15-37); B-TYPE NATRIURETIC PEPTIDE 6907 PG/ML (0-125); BILIRUBIN,TOTAL 0.4 mg/dL (0.2-1.0); CALCIUM, SERUM 6.3 mg/dL (8.5-10.1); CARBON DIOXIDE 20 mmol/L (21-32); CHLORIDE 97 mmol/L (98-107); CREATININE 2.9 mg/dL (0.6-1.3); GLUCOSE 125 mg/dL (74-106); MAGNESIUM 1.6 mg/dL (1.8-2.4); PHOSPHORUS 5.4 mg/dL (2.5-4.9); SODIUM SERUM 130 mmol/L (136-145); TOTAL PROTEIN, SERUM 5.1 g/dL (6.4-8.2); UREA NITROGEN, BLOOD 61 mg/dL (7-18)
[2019-10-09 05:48] LABS: CHOLESTEROL 46 mg/dL (<200); CREATINE KINASE, TOTAL 1662 U/L (39-308); LDL 9 mg/dL (0-99); THYROID STIMULATING HORMONE 0.577 uIU/mL (0.358-3.74); TRIGLYCERIDES 250 mg/dL (30-150)
[2019-10-09 06:23] LABS: HDL CHOLESTEROL < 10 mg/dL (40-60)
--- NOTE | 2019-10-09 07:30 | NUR ---
RN NOTES RECEIVED PATIENT IN BED, SEDATED. INTUBATED ORALLY WITH 7.5CM AT 24CM ON THE LIP. OGT IN PLACE, PLACEMENT CONFIRMED BY AUSCULTATION, CLAMPED AT THIS TIME. CALM ON BED, NO INDICATION OF PAIN NOTED. PER REPORT, PATIENT NOTED WITH INTERMITTENT TREMORS. ON DIPRIVAN DRIP, CURRENTLY @15MCGG/MIN, WILL INITIATE SEDATION VACATION AT THIS TIME. PATIENT ALSO ON LEVOPHED, CURRENTLY @ 10 MCG/MIN, WITH 1/2 NS @ 100ML/HR, ALL INFUSING THROUGH TRIPLE LUMEN RIGHT UPPER ARM PICC. BILATERAL SOFT WRIST RESTRAINTS FOR SAFETY, REMOVED AND REPLACED TO ASSESS SKIN INTEGRITY. HOB KEPT ELEVATED. WEISS CATHETER IN PLACE, PATENT AND INTACT, DRAINING TO YELLOW COLORED URINE. BED IN LOWEST AND LOCKED POSITION. WILL CONTINUE TO MONITOR PATIENT CLOSELY
--- NOTE | 2019-10-09 07:30 | NUR ---
PODIATRIC AIDE CLOSING NOTES PATIENT RESTING IN BED, APPEARS COMFORTABLE, NO ACUTE DISTRESS NOTED. REMAINS ORALLY INTUBATED ON MECHANICAL VENTILATION. MICHELE PICC PATENT AND INTACT, WEISS PATENT AND INTACT. LEVOPHED DRIP TITRATED DOWN TO 10MCG/MIN, DIPRIVAN GTT TITRATED TO 15MCG/KG/MIN. WILL ENDORSE THE PATIENT TO THE AM SHIFT NURSE FOR CONTINUITY OF CARE
[2019-10-09] MEDS ORDERED: IV 1/2NS 1000 ML 1,000 ML IV PRN (08:16)
[2019-10-09 08:19] LABS: ABG BASE EXCESS -5.4 mmol/L; ABG OXYGEN SATURATION 96.4 % (92.0-98.5); ABG PCO2 27.8 mmHg (35.0-45.0); AaDO2 164.2 mmHg; COHb 1.1 % (0.5-1.5); O2Hb 95.3 % (94.0-97.0); SITE, ABG Right Radial
--- NOTE | 2019-10-09 08:50 | NUR ---
WOUND CARE CONSULT: PT PRESENTS WITH DEEP TISSUE INJURY WHICH IS INTACT WITH RASH TO BUTTOCKS AND GLUTEAL CREASE SKIN IRRITATION/OPEN SKIN, PENIS WOUNDS/DISCOLORATION AND GENERALIZED EDEMA, PRESENT ON ADMISSION. PT IS INCONTINENT OF STOOL. RECOMMEND SURGICAL CONSULT. DR LARRY NOTIFIED OF SURGICAL CONSULT REQUEST. PT IS INTUBATED. PT ON FIRST STEP CIRRUS LOW AIRLOSS MATTRESS. SKIN PROTECTION DISCUSSED WITH NURSING STAFF. DEFER TO SURGICAL TEAM FOR WOUND TREATMENT PLAN. WILL SEE PRN. HODGE IN AGREEMENT WITH PLAN OF CARE. Addendum: 10/09/19 at 0853 by RAMANDEEP OSBORN WNDNU Amended: Links added.
[2019-10-09] MEDS: PANTOPRAZOLE 40 MG VIAL IV SCH (09:41)
[2019-10-09] MEDS: LEVETIRACETAM SOL (5 ML) 100 MG/ML UDC GT SCH ×2 (09:41→21:08)
[2019-10-09] MEDS: AMIODARONE HCL 200 MG TABLET GT SCH (09:41)
[2019-10-09] MEDS: HYDROCORTISONE SOD SUCCINATE 100 MG/2 ML VIAL IV SCH ×3 (09:42→17:33)
[2019-10-09] MEDS: HEPARIN SODIUM, PORCINE 5000 UNITS/1 ML VIAL SQ SCH ×2 (09:43→21:15)
--- NOTE | 2019-10-09 11:00 | NUR ---
RN NOTES INFORMED DR. NARAYAN THAT PATIENT'S TRIGYLCERIDES ARE ELEVATED AT 250 AND ASKED IF ITS OKAY TO KEEP PATIENT ON PROFOPOL DRIP. PER , OKAY TO ADMINISTER MEDICATION
[2019-10-09] MEDS: NOREPINEPHRINE 16 MG in IV D5W 500 ML IV PRN (18:06)
[2019-10-09] MEDS: VANCOMYCIN 1 GM in IV D5W 250 ML IV SCH (18:11)
--- NOTE | 2019-10-09 19:20 | NUR ---
RN NOTES ENDORSED FOR CONTINUITY OF CARE. NOT ON ANY FORM OF DISTRESS. BREATHING UNLABORED. STILL SEDATED WITH DIPRIVAN AT 20MCG. LEVOPHED AT 2MCG AND FLUIDS AT DESIRED RATE. SAFETY MEASURES IN PLACE. CALL LIGHT WITHIN REACH
--- NOTE | 2019-10-09 19:30 | NUR ---
IUSS ANALYST INITIAL SHIFT NOTES RECEIVED PATIENT IN BED, SEDATED ON DIPRIVAN GTT, CURRENTLY @ 10MCG. ALSO ON LEVOPHED GTT, CURRENTLY @ 2 MCG, WELL 1/2 NS @ 40ML/HR, ALL INFUSING THROUGH TRIPLE LUMEN RIGHT UPPER ARM PICC. ALL PORTS PATENT AND INTACT, FLUSHED WITH NS. WEISS CATHETER PATENT AND INTACT, DRAINING YELLOW/MARIANNA COLORED URINE WITH SEDIMENTS TO DRAINAGE BAG. BILATERAL SOFT WRIST RESTRAINTS IN PLACE FOR SAFETY DUE TO HIGH RISK OF SELF EXTUBATION. BED IN LOWEST AND LOCKED POSITION. WILL MONITOR CLOSELY
--- NOTE | 2019-10-09 20:21 | NUR ---
RECEIVED PT INTUBATED WITH 7.5 ERR SECURED AT 24CM AT THE LIP. PT TOLERATING VENT SETTINGS. SX'D FOR SML AMT OF THICK WHITE SECRETIONS. VENT ALARMS SET AND AUDIBLE. AMBU BAG AT BEDSIDE. VENT PLUGGED INTO RED OUTLET. ETT CUFF PHARMACY TECHNICIAN INPATIENT. CONTINUE [facility] VENT SUPPORT. Addendum: 10/09/19 at 2022 by BRITANY REDD RT Amended: Links added.
[2019-10-09] MEDS: MUPIROCIN OINT 2% 22 GM TUBE SCH (21:11)
[2019-10-10] VITALS (45 sets, daily range): BP systolic 73–122; BP diastolic 51–71
[2019-10-10 04:11] LABS: BASOPHILS % (AUTO) 0.1 % (0.0-2.0); HEMATOCRIT 24 % (39-51); LYMPHOCYTES # (AUTO) 0.2 /CMM (0.8-4.8); LYMPHOCYTES % (AUTO) 2.3 % (20.0-44.0); MEAN CORPUSCULAR HGB CONC 33 g/dl (31.0-36.0); MEAN CORPUSCULAR VOLUME 82 fL (80-96); MONOCYTES # (AUTO) 0.2 /CMM (0.1-1.30); MONOCYTES % (AUTO) 2.4 % (2.0-12.0); NEUTROPHILS # (AUTO) 9.7 /CMM (1.8-8.9); NEUTROPHILS % (AUTO) 95.2 % (43.0-81.0); PLATELET COUNT (AUTO) 172 /CMM (150-450); RED BLOOD CELL COUNT(AUTO) 2.92 MIL/uL (4.5-6.0); WHITE BLOOD COUNT (AUTO) 10.2 K/uL (4.3-11.0)
[2019-10-10 04:26] LABS: CALCIUM, SERUM 6.2 mg/dL (8.5-10.1); CARBON DIOXIDE 20 mmol/L (21-32); CHLORIDE 95 mmol/L (98-107); CREATININE 3.3 mg/dL (0.6-1.3); GLUCOSE 93 mg/dL (74-106); POTASSIUM 3.9 mmol/L (3.5-5.1); SODIUM SERUM 128 mmol/L (136-145); UREA NITROGEN, BLOOD 66 mg/dL (7-18)
[2019-10-10] MEDS: MEROPENEM 500 MG in IV NS 0.9% 50 ML IV SCH ×2 (04:34→16:25)
[2019-10-10] MEDS: PROPOFOL 100 ML IV PRN ×3 (04:34→21:14)
--- NOTE | 2019-10-10 07:00 | NUR ---
LABORER HOISTING CLOSING NOTES PATIENT RESTING IN BED, CONTINUES TO BE ORALLY INTUBATED ON MECHANICAL VENTILATION, SEDATED ON DIPRIVAN, TITRATED TO 10MCG/KG/MIN, LEVOPHED GTT @ 1MCG/MIN. BEDSIDE REPORT GIVEN TO AM SHIFT NURSE FOR CONTINUITY OF CARE
--- NOTE | 2019-10-10 07:30 | NUR ---
RN NOTES RECEIVED PATIENT BACK FROM NIGHT THE PREVIOUS SHIFT, STILL SEDATED WITH DIPRIVAN DRIP AT [facility] TOLERATING VENT SETTINGS ORDERED. NO SOB NOTED AT THIS TIME, SATING AT 97%. . IV ACCESS ON THE RAC G 20, MICHELE MIDLINE AND LFA G [address] AND INTACT, FLUSHES WELL. 1/2 NS RUNNING AT 40CC/HR AND LEVOPHED AT 1MCG. WEISS CATHETER IN PLACE AND DRAINING WELL.HOB ELEVATED. SAFETY MEASURES OBSERVED AND MAINTAINED. CALL LIGHT WITHIN REACH. WILL CONTINUE TO MONITOR PATIENT CLOSELY
--- NOTE | 2019-10-10 08:26 | NUR ---
RT PATIENT REC'D ORALLY INTUBATED ON [facility] VENT. PATIENT AIRWAY CHECKED, SECURE, AND PATENT. VENT ALARMS CHECKED + AUDIBLE. PATIENT APPEARS COMFORTABLE AND IN NO DISTRESS. ELIDAU JOAN AT HOB. CONT CURRENT PLAN OF RESP CARE. Addendum: 10/10/19 at 1012 by RICHAR SMITH RT Amended: Links added.
[2019-10-10 08:42] LABS: ABG BASE EXCESS -7.7 mmol/L; ABG PCO2 26.8 mmHg (35.0-45.0); ABG PH 7.397 (7.350-7.450); ABG PO2 86.5 mmHg (75.0-100.0); AaDO2 167.9 mmHg; COHb 1.2 % (0.5-1.5); MetHb 0.3 % (0.0-1.5); O2Hb 94.6 % (94.0-97.0); SITE, ABG Right Radial; VENT MODE, BG AC 18 450 40% +0
[2019-10-10] MEDS: HYDROCORTISONE SOD SUCCINATE 100 MG/2 ML VIAL IV SCH ×3 (09:40→17:22)
[2019-10-10] MEDS: HEPARIN SODIUM, PORCINE 5000 UNITS/1 ML VIAL SQ SCH ×2 (09:41→20:16)
[2019-10-10] MEDS: MUPIROCIN OINT 2% 22 GM TUBE SCH ×2 (09:41→20:22)
[2019-10-10] MEDS: PANTOPRAZOLE 40 MG VIAL IV SCH (09:41)
[2019-10-10] MEDS: LEVETIRACETAM SOL (5 ML) 100 MG/ML UDC GT SCH ×2 (09:41→20:12)
[2019-10-10] MEDS: AMIODARONE HCL 200 MG TABLET GT SCH (09:42)
[2019-10-10] MEDS: IV NS 0.9% 1,000 ML IV SCH (10:27)
[2019-10-10 15:06] LABS: *SPE A/G RATIO 0.6 (0.7-1.7); *SPE ALBUMIN 1.7 g/dL (2.9-4.4); *SPE ALPHA-1-GLOBULIN 0.4 g/dL (0.0-0.4); *SPE BETA GLOBULIN 0.7 g/dL (0.7-1.3); *SPE GLOBULIN, TOTAL 2.8 g/dL (2.2-3.9); *SPE M-SPIKE 0.1 g/dL (Not Observed); *SPEGAMMA GLOBULIN 0.7 g/dL (0.4-1.8)
--- NOTE | 2019-10-10 19:20 | NUR ---
RN NOTES ENDORSED FOR CONTINUITY OF CARE. PATIENT CALMLY SLEEP. NOT ON ANY FORM OF DISTRESS. NO INDICATION OF PAIN NOTED. STILL SEDATED WITH DIPRIVAN AT 25MCG. SAFETY MEASURES IN PLACE. CALL LIGHT WITHIN REACH
--- NOTE | 2019-10-10 19:30 | NUR ---
HIDE BUYER NOTE RECEIVED PT INTUBATED AND SEDATED. ETT IN PLACE AND ON MECH VENT. ISOLATION PRECAUTIONS OBSERVED. HOB ELEVATED AND ON ASPIRATION PRECAUTIONS. BILATERAL SOFT WRIST RESTRAINTS IN PLACE WITH BILATERAL RADIAL PULSES PALPABLE AND NO DISCOLORATION NOTED. WEISS CATHETER IN PLACE AND DRAINING BY GRAVITY. GT CLAMPED. WILL CONTINUE TO MONITOR.
--- NOTE | 2019-10-10 20:23 | NUR ---
RT PT RECEIVED ORALLY INTUBATED ON [facility] VENT WITH NOTED SETTING. ETT PATENT AND SECURE VIA ANCHOR FAST. COARSE BILATERAL BREATH SOUNDS NOTED. PT TOLERATING SETTING WELL. NO SOB RO DISTRESS NOTED. VENT ALARMS SET AND AUDIBLE. VENT TO RED OUTLET. AMBU BAG AT [facility]. WILL CONTINUE TO MONITOR. Addendum: 10/10/19 at 2024 by SHAGGY SAM RT Amended: Links added.
[2019-10-11] VITALS (24 sets, daily range): BP systolic 89–132; BP diastolic 46–74
[2019-10-11] MEDS: IV NS 0.9% 1,000 ML IV SCH (02:26)
[2019-10-11] MEDS: PROPOFOL 100 ML IV PRN ×4 (02:26→18:33)
[2019-10-11 03:04] LABS: BASOPHILS % (AUTO) 0.1 % (0.0-2.0); HEMATOCRIT 24 % (39-51); HEMOGLOBIN 8.3 g/dL (13.5-17.5); LYMPHOCYTES # (AUTO) 0.2 /CMM (0.8-4.8); LYMPHOCYTES % (AUTO) 2.1 % (20.0-44.0); MEAN CORPUSCULAR HGB CONC 34 g/dl (31.0-36.0); MEAN CORPUSCULAR VOLUME 81 fL (80-96); MONOCYTES # (AUTO) 0.2 /CMM (0.1-1.30); MONOCYTES % (AUTO) 2.9 % (2.0-12.0); NEUTROPHILS # (AUTO) 8.1 /CMM (1.8-8.9); NEUTROPHILS % (AUTO) 94.9 % (43.0-81.0); PLATELET COUNT (AUTO) 153 /CMM (150-450); RED BLOOD CELL COUNT(AUTO) 3.01 MIL/uL (4.5-6.0); WHITE BLOOD COUNT (AUTO) 8.5 K/uL (4.3-11.0)
[2019-10-11 03:12] LABS: CALCIUM, SERUM 6.5 mg/dL (8.5-10.1); CARBON DIOXIDE 19 mmol/L (21-32); CHLORIDE 98 mmol/L (98-107); CREATININE 3.5 mg/dL (0.6-1.3); GLUCOSE 96 mg/dL (74-106); POTASSIUM 3.8 mmol/L (3.5-5.1); SODIUM SERUM 131 mmol/L (136-145); UREA NITROGEN, BLOOD 71 mg/dL (7-18)
[2019-10-11] MEDS: VANCOMYCIN 1 GM in IV D5W 250 ML IV SCH (04:01)
[2019-10-11] MEDS: MEROPENEM 500 MG in IV NS 0.9% 50 ML IV SCH ×2 (05:10→17:04)
--- NOTE | 2019-10-11 07:00 | NUR ---
SCOOPING MACHINE TENDER NOTES RECEIVED PATIENT IN BED, SEDATED. INTUBATED ORALLY WITH 7.5CM AT 24CM ON THE LIP. NGT IN PLACE, PLACEMENT CONFIRMED BY AUSCULTATION, CLAMPED AT THIS TIME. NO S/S OF RESPIRATORY DISTRESS TOLERATING VENT SETTINGS ORDERED, NO INDICATION OF PAIN NOTED. ON DIPRIVAN DRIP, CURRENTLY @30MCGG/MIN WITH NS @ 75ML/HR, ALL INFUSING THROUGH TRIPLE LUMEN RIGHT UPPER ARM PICC. BILATERAL SOFT WRIST RESTRAINTS FOR SAFETY, REMOVED AND REPLACED TO ASSESS SKIN INTEGRITY. HOB KEPT ELEVATED. WEISS CATHETER IN PLACE, PATENT AND INTACT, DRAINING YELLOW COLORED URINE. BED IN LOWEST AND LOCKED POSITION. WILL CONTINUE TO MONITOR PATIENT CLOSELY
--- NOTE | 2019-10-11 07:19 | NUR ---
LITHOGRAPHING MACHINE OPERATOR NOTE PT REMAINED STABLE DURING SHIFT. NO ACUTE DISTRESS NOTED. VENT SETTINGS WELL TOLERATED AND SUCTIONED NEEDED. ISOLATION PRECAUTIONS MAINTAINED. ALL NEEDS ATTENDED TO. KEPT CLEAN AND DRY. REPOSITIONED Q2H. ALL SAFETY MEASURES IN PLACE. WILL ENDORSE TO NEXT SHIFT FOR CONTINUITY OF CARE.
[2019-10-11] MEDS: LEVETIRACETAM SOL (5 ML) 100 MG/ML UDC GT SCH ×2 (08:30→21:40)
[2019-10-11] MEDS: PANTOPRAZOLE 40 MG VIAL IV SCH (08:30)
[2019-10-11] MEDS: HYDROCORTISONE SOD SUCCINATE 100 MG/2 ML VIAL IV SCH ×3 (08:30→17:04)
[2019-10-11] MEDS: AMIODARONE HCL 200 MG TABLET GT SCH (08:30)
--- NOTE | 2019-10-11 08:30 | NUR ---
AT BEDSIDE OK TO REMOVE NGT PT HAS GT CLAMPED.
--- NOTE | 2019-10-11 08:30 | NUR ---
REMOVED RAC #18 GAUGE D/T LEAKING TIP INTACT
[2019-10-11] MEDS: HEPARIN SODIUM, PORCINE 5000 UNITS/1 ML VIAL SQ SCH ×2 (08:31→21:00)
[2019-10-11] MEDS: MUPIROCIN OINT 2% 22 GM TUBE SCH ×2 (08:32→21:41)
--- NOTE | 2019-10-11 08:45 | NUR ---
INFORMED MD AT BEDSIDE OF BLOODY SECRETIONS NO ORDERS TO STOP HEPARIN AT THIS TIME
[2019-10-11] MEDS: IV NS 0.9% 1,000 ML IV PRN ×2 (08:59→22:55)
--- NOTE | 2019-10-11 09:00 | NUR ---
REMOVED NGT PER MD . PT HAS GT
--- NOTE | 2019-10-11 14:30 | NUR ---
BED BEATH GIVEN LINEN CHANGED ORAL AND WOUND CARE RENDERED
[2019-10-11] MEDS: JEVITY 1.2 CAL 1,000 ML BOTTLE GT PRN (18:46)
--- NOTE | 2019-10-11 19:30 | NUR ---
BODS DEVELOPER RCD PT W/DX SEPSIS, PNA. NSR ON MONITOR. SEDATED ON PROPOFOL @ 30 MCG/KG/MIN. INTUBATED 7.5 @ 24 AC 18 450 40%; LARGE AMOUNT OF FROTHY SPUTUM SUCTIONED FROM PT. GTUBE WITH JEVITY 1.2 @ 35ML/HR WITH GOAL RATE 65.
[2019-10-12] VITALS (24 sets, daily range): BP systolic 109–141; BP diastolic 54–71
[2019-10-12] MEDS: PROPOFOL 100 ML IV PRN ×4 (01:45→17:41)
--- NOTE | 2019-10-12 04:00 | NUR ---
WIRELESS SALES EXPERT INCREASED TUBE FEEDING TO 45 ML/HR.CONTINUE TO MONITOR.
[2019-10-12 04:35] LABS: BASOPHILS % (AUTO) 0.1 % (0.0-2.0); HEMATOCRIT 26 % (39-51); HEMOGLOBIN 8.6 g/dL (13.5-17.5); LYMPHOCYTES # (AUTO) 0.1 /CMM (0.8-4.8); LYMPHOCYTES % (AUTO) 1.8 % (20.0-44.0); MEAN CORPUSCULAR HGB CONC 33 g/dl (31.0-36.0); MEAN CORPUSCULAR VOLUME 82 fL (80-96); MONOCYTES # (AUTO) 0.3 /CMM (0.1-1.30); MONOCYTES % (AUTO) 3.8 % (2.0-12.0); NEUTROPHILS # (AUTO) 6.5 /CMM (1.8-8.9); NEUTROPHILS % (AUTO) 94.3 % (43.0-81.0); PLATELET COUNT (AUTO) 169 /CMM (150-450); RED BLOOD CELL COUNT(AUTO) 3.11 MIL/uL (4.5-6.0); WHITE BLOOD COUNT (AUTO) 6.9 K/uL (4.3-11.0)
[2019-10-12 04:46] LABS: CALCIUM, SERUM 7.2 mg/dL (8.5-10.1); CARBON DIOXIDE 18 mmol/L (21-32); CHLORIDE 99 mmol/L (98-107); CREATININE 3.6 mg/dL (0.6-1.3); GLUCOSE 145 mg/dL (74-106); POTASSIUM 3.6 mmol/L (3.5-5.1); SODIUM SERUM 133 mmol/L (136-145); UREA NITROGEN, BLOOD 72 mg/dL (7-18)
[2019-10-12] MEDS: MEROPENEM 500 MG in IV NS 0.9% 50 ML IV SCH ×2 (05:15→16:31)
--- NOTE | 2019-10-12 07:53 | NUR ---
RT Pt received orally intubated on mechanical ventilation with noted settings. Pt is responds to stimuli when suctioned. Vent is plugged into red outlet. No SOB or respiratory distress noted. Addendum: 10/12/19 at 0928 by ANTONIETA TOLBERT RT Amended: Links added.
[2019-10-12] MEDS: PANTOPRAZOLE 40 MG VIAL IV SCH (08:13)
[2019-10-12] MEDS: LEVETIRACETAM SOL (5 ML) 100 MG/ML UDC GT SCH ×2 (08:13→20:43)
[2019-10-12] MEDS: HYDROCORTISONE SOD SUCCINATE 100 MG/2 ML VIAL IV SCH ×3 (08:13→16:31)
[2019-10-12] MEDS: AMIODARONE HCL 200 MG TABLET GT SCH (08:14)
[2019-10-12] MEDS: HEPARIN SODIUM, PORCINE 5000 UNITS/1 ML VIAL SQ SCH ×2 (08:15→20:43)
[2019-10-12] MEDS: MUPIROCIN OINT 2% 22 GM TUBE SCH ×2 (08:16→20:45)
--- NOTE | 2019-10-12 08:38 | NUR ---
received pt from night court magistrate, sedated on diprivan at 30mcg, SR, on the vent, intubated, lungs congested, non pitting edema all extremities, GT to feeding tolerates well, f/c OK output, restraints on, some bloody secretions when suctioned, MD notified, v/s stable, no pain, pt turned and repositioned.
[2019-10-12 08:56] LABS: ABG BASE EXCESS -10.1 mmol/L; ABG OXYGEN SATURATION 92.8 % (92.0-98.5); ABG PCO2 31.4 mmHg (35.0-45.0); ABG PH 7.304 (7.350-7.450); ABG PO2 72.4 mmHg (75.0-100.0); AaDO2 176.7 mmHg; MetHb 0.6 % (0.0-1.5); O2Hb 91.3 % (94.0-97.0); PEEP,BG 0 cm H2O; SITE, ABG Right Radial; VT, ABG 450 mL
[2019-10-12] MEDS: IV NS 0.9% 1,000 ML IV PRN (11:29)
[2019-10-12] MEDS: VANCOMYCIN 1 GM in IV D5W 250 ML IV SCH (15:10)
--- NOTE | 2019-10-12 16:08 | NUR ---
pt is resting in the bed, sedated on diprivan at 30mcg, SR, v/s stable, no pain, tolerates feeding, good urine output, restraints on, pt cleaned, changed and repositioned.
--- NOTE | 2019-10-12 19:30 | NUR ---
ICU/RN-RECEIVED PT. FROM [facility] RN. PT. SEDATED , W/ SAS 3.ON DIPRIVAN DRIP AT 30 MCG/KG./MIN. NO ELLIOTT. W/ CLEMENTINA. SOFT WRIST RESTRAINTS ON PER PROTOCOL.ON THE THE VENT PER ETT, ON AC MODE. SATS-97%. EKG SR. BP-141/68. ON TUBE FEEDS PER PEG AT 50ML/HR, WELL TOLERATED. AFEBRILE . NO S/S OF PAIN OR DISCOMFORT USING FLACC SCALE PER PROTOCOL.PT. IS A FULL CODE. WILL CONTINUE TO MONITOR PER PROTOCOL.
[2019-10-13] VITALS (25 sets, daily range): BP systolic 102–146; BP diastolic 53–81
[2019-10-13] MEDS: PROPOFOL 100 ML IV PRN ×4 (00:11→17:46)
--- NOTE | 2019-10-13 02:00 | NUR ---
ICU/RN- SKIN CARE DONE. NOTED OPEN WD. ON PENILE AREA. WASHED W/ NS. PAT DRY W/ 4X4. COVERED W/ OIL EMULSION DRESSING. EXCORIATION ON SACRAL AREA NOTED. CLEANSED W/ NS. PAT DRY W/ 4X4. COVERED W/ OIL EMULSION DRESSING AND COVERED W/ MEPILEX.. CONTINUE TO REPOSITION TO SIDE EVERY 2 HRS AND PRN W/ CLEMENTINA HEELS OFF LOADED AT ALL TIMES.REMEDY CREAM APPLIED TO LITTLE AREAS.
--- NOTE | 2019-10-13 04:00 | NUR ---
ICU/RN- PT. REMAINS SEDATED ON DIPRIVAN DRIP. NO S/S OF DISTRESS OR AGITATION. CLEMENTINA. SOFT WRIST RESTRAINTS D/CD. WILL CONTINUE TO MONITOR PT. COMPLIANCE AND BEHAVIOR PER PROTOCOL.
--- NOTE | 2019-10-13 04:19 | NUR ---
RT NOTE Pt Rec'd orally intubated via ETT sz #7.5 secured at 24cm @ the lip line. Pt shows no signs of resp distress or sob. Sx'd for thick mod amt of pink frothy secretions. Alarms are set and audible. Vent plugged into red outlet. Ambu bag bedside. Will continue to monitor. Addendum: 10/13/19 at 0421 by BERNY VILLAGOMEZ RT Amended: Links added.
[2019-10-13 04:26] LABS: BASOPHILS % (AUTO) 0.2 % (0.0-2.0); EOSINOPHILS % (AUTO) 0.1 % (0.0-6.0); HEMATOCRIT 25 % (39-51); HEMOGLOBIN 8.3 g/dL (13.5-17.5); LYMPHOCYTES # (AUTO) 0.2 /CMM (0.8-4.8); LYMPHOCYTES % (AUTO) 2.2 % (20.0-44.0); MEAN CORPUSCULAR HGB CONC 34 g/dl (31.0-36.0); MEAN CORPUSCULAR VOLUME 83 fL (80-96); MONOCYTES # (AUTO) 0.3 /CMM (0.1-1.30); MONOCYTES % (AUTO) 3.9 % (2.0-12.0); NEUTROPHILS # (AUTO) 7.2 /CMM (1.8-8.9); NEUTROPHILS % (AUTO) 93.6 % (43.0-81.0); PLATELET COUNT (AUTO) 211 /CMM (150-450); RED BLOOD CELL COUNT(AUTO) 2.99 MIL/uL (4.5-6.0); WHITE BLOOD COUNT (AUTO) 7.7 K/uL (4.3-11.0)
[2019-10-13 04:31] LABS: CALCIUM, SERUM 7.5 mg/dL (8.5-10.1); CARBON DIOXIDE 19 mmol/L (21-32); CHLORIDE 102 mmol/L (98-107); CREATININE 3.6 mg/dL (0.6-1.3); GLUCOSE 158 mg/dL (74-106); POTASSIUM 3.4 mmol/L (3.5-5.1); SODIUM SERUM 137 mmol/L (136-145); UREA NITROGEN, BLOOD 74 mg/dL (7-18)
[2019-10-13] MEDS: MEROPENEM 500 MG in IV NS 0.9% 50 ML IV SCH ×2 (04:33→17:16)
--- NOTE | 2019-10-13 08:07 | NUR ---
received pt from training manager, sedated on Diprivan at 30mcg, SR, on the vent, lungs congested, non pitting edema all extremities, GT to feeding tolerates well, f/c good output, v/s stable, no pain, pt turned and repositioned.
[2019-10-13 08:20] LABS: ABG BASE EXCESS -11.5 mmol/L; ABG OXYGEN SATURATION 93.8 % (92.0-98.5); ABG PCO2 36.4 mmHg (35.0-45.0); ABG PH 7.235 (7.350-7.450); ABG PO2 83.2 mmHg (75.0-100.0); AaDO2 160.1 mmHg; COHb 0.8 % (0.5-1.5); MetHb 0.4 % (0.0-1.5); O2Hb 92.7 % (94.0-97.0); PEEP,BG 0 cm H2O; SITE, ABG Right Radial; VENT MODE, BG AC 18 450 40% +0; VT, ABG 450 mL
--- NOTE | 2019-10-13 08:42 | NUR ---
RT NOTE RECEIVED PT MECHANICALLY VENTILATED VIA 7.5 ETT 24 CM AT LIP. CUFF INFLATED. ETT SECURE. VENTILATOR SETTINGS PRESCRIBED. ALARMS SET PER PROTOCOL AND AUDIBLE. VENT PLUGGED IN TO RED OUTLET. AMBU BAG AT BED SIDE. NO DISTRESS NOTED. Addendum: 10/13/19 at 0842 by LEONCIO BHATIA RT Amended: Links added.
[2019-10-13] MEDS: HYDROCORTISONE SOD SUCCINATE 100 MG/2 ML VIAL IV SCH ×2 (08:51→17:16)
[2019-10-13] MEDS: AMIODARONE HCL 200 MG TABLET GT SCH (08:51)
[2019-10-13] MEDS: LEVETIRACETAM SOL (5 ML) 100 MG/ML UDC GT SCH ×2 (08:51→20:28)
[2019-10-13] MEDS: PANTOPRAZOLE 40 MG VIAL IV SCH (08:51)
[2019-10-13] MEDS: HEPARIN SODIUM, PORCINE 5000 UNITS/1 ML VIAL SQ SCH ×2 (08:58→20:30)
[2019-10-13] MEDS: MUPIROCIN OINT 2% 22 GM TUBE SCH ×2 (09:08→20:29)
--- NOTE | 2019-10-13 09:35 | NUR ---
sedation vocation: pt got agitated, tachypneic, tachycardic, unable to follow commands.
--- NOTE | 2019-10-13 16:39 | NUR ---
pt is resting in the bed, sedated on Diprivan at 30mcg, SR, tolerates feeding, OK urine output, v/s stable, no pain, pt cleaned, changed and repositioned.
--- NOTE | 2019-10-13 19:45 | NUR ---
ICU/BINDING PRINTER RECEIVED REPORT FROM DAY NURSE. SEE NURSING FLOWSHEET FOR ASSESSMENT. PT HAS A FEW SKIN ISSUES WHICH ARE ADDRESSED ALONG WITH THE INTERVENTIONS TO EACH OF THIS. PT IS ON ANY SEDATION. PT IS ORALLY INTUBATED TOLERATING CURRENT VENT SETTINGS WELL WITH SATURATION AT 100%. PT HAS G-TUBE THAT HAS JEVITY AT 60ML WITH 5 ML RESIDUALS. PT WAS TURNED AND REPOSITIONED FOR COMFORT AND CARE. WILL CONTINUE TO MONITOR THIS PT. NO ACUTE DISTRESS SEEN AT THIS TIME.
[2019-10-13] MEDS: LEVOFLOXACIN (500MG) 500 MG TABLET PO SCH (20:28)
--- NOTE | 2019-10-13 21:19 | NUR ---
RT NOTE Pt rec'd orally intubated via ETT #7.5 secured at 24cm at the lip line. Pt on [facility] vent on ac mode settings as charted. No resp distress or sob noted. Pt sx'd for thick large amt of pink frothy secretions. alarms are set and audible. vent plugged into red outlet. Ambu bag bedside. will continue to monitor. Addendum: 10/13/19 at 2121 by BERNY VILLAGOMEZ RT Amended: Links added.
--- NOTE | 2019-10-13 22:15 | NUR ---
ICU/POSTAL TRANSPORTATION CLERK PT WAS GIVEN PM CARE, ALONG WITH ORAL CARE AT THIS TIME. PT TOLERATED THIS WELL, PT REMAINS ON CURRENT VENT SETTINGS WITH SATURATION AT 100%. PT WAS THEN TURNED AND REPOSITIONED FOR COMFORT AND CARE. WILL CONTINUE TO MONITOR THIS PT. NO ACUTE DISTRESS SEEN AT THIS TIME.
[2019-10-14] VITALS (32 sets, daily range): BP systolic 88–142; BP diastolic 45–74
--- NOTE | 2019-10-14 00:25 | NUR ---
ICU/PERSONAL CHEF PT WAS TURNED AND REPOSITIONED FOR COMFORT AND CARE. PT TOLERATING CURRENT VENT SETTINGS WITH SATURATION AT 100%. NO ACUTE DISTRESS SEEN AT THIS TIME.
[2019-10-14] MEDS: PROPOFOL 100 ML IV PRN ×4 (00:33→17:26)
--- NOTE | 2019-10-14 02:35 | NUR ---
ICU/BOILER/CHILLER OPERATOR PT WAS GIVEN AM CARE, ALONG WITH ORAL CARE AT THIS TIME. PT TOLERATED THIS WELL, PT REMAINS ON CURRENT VENT SETTINGS WITH SATURATION AT 100%. PT WAS THEN TURNED AND REPOSITIONED FOR COMFORT AND CARE. WILL CONTINUE TO MONITOR THIS PT. NO ACUTE DISTRESS SEEN AT THIS TIME.
[2019-10-14] MEDS: VANCOMYCIN 1 GM in IV D5W 250 ML IV SCH (03:57)
--- NOTE | 2019-10-14 04:20 | NUR ---
ICU/LEGAL WRITING PROFESSOR AM LABS WERE DONE ALONE WITH CHEST XRAY. AWAITING FOR ANY ABNORMAL RESULTS.
[2019-10-14 04:54] LABS: BASOPHILS % (AUTO) 0.1 % (0.0-2.0); EOSINOPHILS % (AUTO) 2.4 % (0.0-6.0); HEMATOCRIT 24 % (39-51); HEMOGLOBIN 7.9 g/dL (13.5-17.5); LYMPHOCYTES # (AUTO) 0.3 /CMM (0.8-4.8); LYMPHOCYTES % (AUTO) 3.4 % (20.0-44.0); MEAN CORPUSCULAR HGB CONC 33 g/dl (31.0-36.0); MEAN CORPUSCULAR VOLUME 82 fL (80-96); MONOCYTES # (AUTO) 0.4 /CMM (0.1-1.30); MONOCYTES % (AUTO) 4.7 % (2.0-12.0); NEUTROPHILS # (AUTO) 7.7 /CMM (1.8-8.9); NEUTROPHILS % (AUTO) 89.4 % (43.0-81.0); PLATELET COUNT (AUTO) 235 /CMM (150-450); RED BLOOD CELL COUNT(AUTO) 2.87 MIL/uL (4.5-6.0); WHITE BLOOD COUNT (AUTO) 8.6 K/uL (4.3-11.0)
[2019-10-14] MEDS: MEROPENEM 500 MG in IV NS 0.9% 50 ML IV SCH ×2 (05:10→16:28)
[2019-10-14 05:18] LABS: CALCIUM, SERUM 7.8 mg/dL (8.5-10.1); CARBON DIOXIDE 20 mmol/L (21-32); CHLORIDE 105 mmol/L (98-107); CREATININE 3.4 mg/dL (0.6-1.3); GLUCOSE 118 mg/dL (74-106); MAGNESIUM 1.9 mg/dL (1.8-2.4); PHOSPHORUS 7.7 mg/dL (2.5-4.9); POTASSIUM 3.3 mmol/L (3.5-5.1); SODIUM SERUM 142 mmol/L (136-145)
[2019-10-14 05:23] LABS: UREA NITROGEN, BLOOD 81 mg/dL (7-18)
[2019-10-14 06:30] LABS: BAND % (MANUAL) 3 % (0.0-5.0); LYMPHOCYTES % (MANUAL) 3 % (16-48); METAMYELOCYTES % 4 % (0-0); MONOCYTES % (MANUAL) 4 % (0-11.0); MYELOCYTES % 1 % (0-0); NEUTROPHILS % (MANUAL) 85 (42-76)
--- NOTE | 2019-10-14 08:15 | NUR ---
received pt from warehouse supervisor 3rd shift, sedated on Diprivan at 30mcg, SR, on the vent, lungs congested, non pitting edema all extremities, GT to feeding tolerates well, diarrhea, f/c good output, v/s stable, no pain, pt cleaned, turned and repositioned.
[2019-10-14] MEDS: AMIODARONE HCL 200 MG TABLET GT SCH (08:41)
[2019-10-14] MEDS: HYDROCORTISONE SOD SUCCINATE 100 MG/2 ML VIAL IV SCH ×2 (08:41→16:28)
[2019-10-14] MEDS: LEVETIRACETAM SOL (5 ML) 100 MG/ML UDC GT SCH ×2 (08:41→21:38)
[2019-10-14] MEDS: PANTOPRAZOLE 40 MG VIAL IV SCH (08:41)
[2019-10-14] MEDS: HEPARIN SODIUM, PORCINE 5000 UNITS/1 ML VIAL SQ SCH ×2 (08:42→21:38)
[2019-10-14] MEDS: MUPIROCIN OINT 2% 22 GM TUBE SCH ×2 (08:42→21:40)
[2019-10-14 10:14] LABS: ABG BASE EXCESS -7.6 mmol/L; ABG OXYGEN SATURATION 95.4 % (92.0-98.5); ABG PCO2 34.1 mmHg (35.0-45.0); ABG PH 7.329 (7.350-7.450); ABG PO2 89.8 mmHg (75.0-100.0); AaDO2 156.2 mmHg; COHb 1.1 % (0.5-1.5); MetHb 0.6 % (0.0-1.5); O2Hb 93.8 % (94.0-97.0); SITE, ABG Left Radial; VENT MODE, BG AC 18 450 40% +0
--- NOTE | 2019-10-14 10:16 | NUR ---
RT NOTE Increased peep to +5 per md amanda Addendum: 10/14/19 at 1017 by BERNY VILLAGOMEZ RT Amended: Links added.
[2019-10-14] MEDS: POTASSIUM CL. PREMIX PERIPHER. 50 ML IV SCH ×4 (10:31→13:39)
[2019-10-14] MEDS: JEVITY 1.2 CAL 1,000 ML BOTTLE GT PRN (12:56)
--- NOTE | 2019-10-14 16:11 | NUR ---
pt is resting in the bed, sedated on Diprivan at 30mcg, SR, tolerates feeding, f/c OK output, v/s stable, no pain, pt cleaned, changed and repositioned.
[2019-10-15] VITALS (22 sets, daily range): BP systolic 106–152; BP diastolic 51–71
[2019-10-15] MEDS: PROPOFOL 100 ML IV PRN ×4 (00:28→22:15)
[2019-10-15 04:55] LABS: BASOPHILS % (AUTO) 0.1 % (0.0-2.0); HEMATOCRIT 22 % (39-51); HEMOGLOBIN 7.5 g/dL (13.5-17.5); LYMPHOCYTES # (AUTO) 0.4 /CMM (0.8-4.8); LYMPHOCYTES % (AUTO) 5.1 % (20.0-44.0); MEAN CORPUSCULAR HGB CONC 34 g/dl (31.0-36.0); MEAN CORPUSCULAR VOLUME 82 fL (80-96); MONOCYTES # (AUTO) 0.4 /CMM (0.1-1.30); MONOCYTES % (AUTO) 5.2 % (2.0-12.0); NEUTROPHILS # (AUTO) 6.8 /CMM (1.8-8.9); NEUTROPHILS % (AUTO) 85.6 % (43.0-81.0); PLATELET COUNT (AUTO) 254 /CMM (150-450); WHITE BLOOD COUNT (AUTO) 7.9 K/uL (4.3-11.0)
[2019-10-15 05:05] LABS: CALCIUM, SERUM 7.8 mg/dL (8.5-10.1); CARBON DIOXIDE 20 mmol/L (21-32); CHLORIDE 106 mmol/L (98-107); CREATININE 3.2 mg/dL (0.6-1.3); GLUCOSE 172 mg/dL (74-106); POTASSIUM 3.7 mmol/L (3.5-5.1); SODIUM SERUM 140 mmol/L (136-145)
[2019-10-15 05:07] LABS: UREA NITROGEN, BLOOD 80 mg/dL (7-18)
[2019-10-15] MEDS: MEROPENEM 500 MG in IV NS 0.9% 50 ML IV SCH ×2 (05:41→16:16)
--- NOTE | 2019-10-15 08:05 | NUR ---
PATIENT ORALLY INTUBATED-SEDATED ON DIPRIVAN DRIP AT 30 MCG/KG/MIN-WILL INITIATE SEDATION VACATION. BP NORMOTENSIVE WITHOUT PRESSOR SUPPORT. SR ON MONITOR. SEEN AN EXAMINED BY DR. OJEDA.
[2019-10-15] MEDS: HYDROCORTISONE SOD SUCCINATE 100 MG/2 ML VIAL IV SCH (08:13)
[2019-10-15] MEDS: LEVETIRACETAM SOL (5 ML) 100 MG/ML UDC GT SCH ×2 (08:13→20:32)
[2019-10-15] MEDS: PANTOPRAZOLE 40 MG VIAL IV SCH (08:13)
[2019-10-15] MEDS: MUPIROCIN OINT 2% 22 GM TUBE SCH ×2 (08:15→20:35)
[2019-10-15] MEDS: AMIODARONE HCL 200 MG TABLET GT SCH (08:15)
[2019-10-15] MEDS: HEPARIN SODIUM, PORCINE 5000 UNITS/1 ML VIAL SQ SCH (08:17)
--- NOTE | 2019-10-15 09:00 | NUR ---
JEWELL HODGE, DR. LACY AT BEDSIDE. NO VENT WEANING AT THIS TIME. DIPRIVAN DRIP TITRATED DOWN, EASILY AROUSABLE, OPENS EYES SPONTANEOUSLY. DOES NOT FOLLOW SIMPLE COMMANDS. OVERBREATHING THE VENT. SEDATION RESUMED.
--- NOTE | 2019-10-15 10:00 | NUR ---
PHONE UPDATE TO PATIENT DAUGHTER GIVEN. PLAN OF CARE DISCUSSED.
[2019-10-15] MEDS: NITROGLYCERIN 30 GM TUBE TP SCH ×2 (10:03→20:32)
--- NOTE | 2019-10-15 11:30 | NUR ---
PATIENT REPORT GIVEN TO VIOLETA FOR LUIS FERNANDO.
--- NOTE | 2019-10-15 11:30 | NUR ---
ICU/SUTURE WINDER HAND OF CARE REPORT RECEIVED FROM NURSE TORRES, ENDORSED TO CONTINUE CARE.
--- NOTE | 2019-10-15 16:00 | NUR ---
ICU/RN PM CARE SCHEDULED VANCOMYCIN @ 1600 HELD D/T HIGH THROUGH. PM CARE PROVIDED. NO CHANGE OF CONDITION. ON GOING MONITORING.
--- NOTE | 2019-10-15 18:30 | NUR ---
ICU/RN AFTERNOON ROUNDS PT TURNED & REPOSITIONED. NO ACUTE CHANGE OF CONDITION. MONITORING CONTINUED.
--- NOTE | 2019-10-15 19:20 | NUR ---
ICU/RN AM SHIFT END NOTES ALL NEEDS MET, NO ACUTE CHANGE OF CONDITION NOTED DURING THE SHIFT. PT ENDORSED TO PM NURSE TO CONTINUE CARE. CL WITHIN REACHED, SAFETY MAINTAINED AND ISOLATION OBSERVED.
--- NOTE | 2019-10-15 19:43 | NUR ---
AGED OR DISABLED CARER NOTE PT IN BED SEDATED ON DIPRIVAN 25 MCG/KG/MIN, OPEN EYES AT TIMES. ETT INTACT AT #7.5 24 CM ON LIP AC 18, TV 450 FIO2 40% PEEP 5, NO DISTRESS OR DISCOMFORT NOTED. NO S/S OF PAIN NOTED. ON TELE MONITOR SR WITH PVC HR 79. F/C INTACT AND PATENT DRAINING YELLOWISH COLOR URINE. GT INTACT AND PATENT INFUSING JEVITY 65 ML/HR, 0 ML RESIDUAL NOTED. MICHELE WITH PICC LINE INTACT AND PATENT. REPOSITION HIM FOR SKIN MANAGEMENT. KEPT HIM DRY AND CLEAN. ALL NEEDS ATTENDED. SIDE RAILS UP X 3 AND CALL LIGHT WITHIN REACH. VSS. CONTINUE TO MONITOR HIM.
[2019-10-15] MEDS: LEVOFLOXACIN (500MG) 500 MG TABLET PO SCH (20:31)
[2019-10-16] VITALS (23 sets, daily range): BP systolic 111–139; BP diastolic 48–66
[2019-10-16] MEDS: JEVITY 1.2 CAL 1,000 ML BOTTLE GT PRN (00:47)
[2019-10-16 04:28] LABS: CALCIUM, SERUM 7.5 mg/dL (8.5-10.1); CARBON DIOXIDE 22 mmol/L (21-32); CHLORIDE 109 mmol/L (98-107); CREATININE 2.9 mg/dL (0.6-1.3); GLUCOSE 123 mg/dL (74-106); POTASSIUM 3.2 mmol/L (3.5-5.1); SODIUM SERUM 145 mmol/L (136-145)
[2019-10-16 04:29] LABS: UREA NITROGEN, BLOOD 81 mg/dL (7-18)
[2019-10-16] MEDS: PROPOFOL 100 ML IV PRN ×3 (04:57→18:44)
[2019-10-16] MEDS: MEROPENEM 500 MG in IV NS 0.9% 50 ML IV SCH ×2 (05:04→16:24)
--- NOTE | 2019-10-16 07:04 | NUR ---
POSTER NOTE PT IN BED SEDATED. NO CHANGE IN CONDITION. REMAIN ON DIPRIVAN 25 MCG/KG/MIN. NO AGITATION OR DISCOMFORT NOTED. ON TELE SR WITH PAC AND PVC HR 89. NO S/S OF PAIN NOTED. F/C INTACT AND PATENT DRAINING YELLOWISH COLOR URINE. REPOSITION HIM Q2H, KEPT HIM DRY AND CLEAN. ALL NEEDS ATTENDED. ENDORSE TO DAY SHIFT NURSE FOR CONTINUE TO CARE.
--- NOTE | 2019-10-16 07:05 | NUR ---
RN NOTE RECEIVED PT ON BED, INTUBATED , SEDATED , OPEN EYES AT TIMES. ETT INTACT AT #7.5 24 CM ON LIP , TOLERATING CURRENT VENT SETTING WELL, O2 SAT WNL, NO DISTRESS OR DISCOMFORT NOTED. ON TELE MONITOR SR WITH PVC HR 80'S , WEISS INTACT AND PATENT DRAINING YELLOWISH COLOR URINE. GT INTACT AND PATENT INFUSING JEVITY 65 ML/HR, NO RESIDUAL NOTED. MICHELE WITH PICC LINE INTACT AND PATENT. SITE CLEAN, DRY AND INTACT, CONTINUE SKIN CARE, SIDE RAILS UP X 3 , CALL LIGHT WITHIN EASY REACH. CONTINUE TO MONITOR .
--- NOTE | 2019-10-16 07:36 | NUR ---
RT Pt received orally intubated on mechanical ventilation with noted settings. Pt is responds to stimuli when suctioned. Vent is plugged into red outlet. No SOB or respiratory distress noted. Addendum: 10/16/19 at 0904 by ANTONIETA TOLBERT RT Amended: Links added.
[2019-10-16] MEDS ORDERED: VANCOMYCIN 0.75 GM in IV D5W 250 ML IV SCH (08:00)
[2019-10-16] MEDS: LEVETIRACETAM SOL (5 ML) 100 MG/ML UDC GT SCH ×2 (08:04→21:30)
[2019-10-16] MEDS: POTASSIUM CL. PREMIX PERIPHER. 50 ML IV SCH ×5 (08:04→11:38)
[2019-10-16] MEDS: HYDROCORTISONE SOD SUCCINATE 100 MG/2 ML VIAL IV SCH (08:05)
[2019-10-16] MEDS: PANTOPRAZOLE 40 MG VIAL IV SCH (08:05)
[2019-10-16] MEDS: AMIODARONE HCL 200 MG TABLET GT SCH (08:05)
[2019-10-16 08:06] LABS: BASOPHILS % (AUTO) 0.4 % (0.0-2.0); EOSINOPHILS % (AUTO) 1.7 % (0.0-6.0); HEMATOCRIT 22 % (39-51); HEMOGLOBIN 7.1 g/dL (13.5-17.5); LYMPHOCYTES # (AUTO) 0.6 /CMM (0.8-4.8); LYMPHOCYTES % (AUTO) 6.5 % (20.0-44.0); MEAN CORPUSCULAR HGB CONC 33 g/dl (31.0-36.0); MEAN CORPUSCULAR VOLUME 83 fL (80-96); MONOCYTES # (AUTO) 0.4 /CMM (0.1-1.30); MONOCYTES % (AUTO) 4.1 % (2.0-12.0); NEUTROPHILS # (AUTO) 7.8 /CMM (1.8-8.9); NEUTROPHILS % (AUTO) 87.3 % (43.0-81.0); PLATELET COUNT (AUTO) 290 /CMM (150-450); WHITE BLOOD COUNT (AUTO) 8.9 K/uL (4.3-11.0)
[2019-10-16] MEDS: MUPIROCIN OINT 2% 22 GM TUBE SCH ×2 (08:07→21:32)
[2019-10-16] MEDS: NITROGLYCERIN 30 GM TUBE TP SCH ×2 (08:08→21:31)
[2019-10-16 08:22] LABS: ABG BASE EXCESS -5.2 mmol/L; ABG OXYGEN SATURATION 97.5 % (92.0-98.5); ABG PH 7.423 (7.350-7.450); ABG PO2 121.2 mmHg (75.0-100.0); AaDO2 130.7 mmHg; COHb 1.5 % (0.5-1.5); MetHb 1.6 % (0.0-1.5); O2Hb 94.5 % (94.0-97.0); PEEP,BG 5 cm H2O; SITE, ABG Right Radial; VT, ABG 450 mL
--- NOTE | 2019-10-16 12:00 | NUR ---
RN NOTES VSS STABLE, PT TOLERATING TF WELL, NO DISTRESS NOTED , CONTINUE TO MONITOR .
--- NOTE | 2019-10-16 15:00 | NUR ---
RN NOTES ET CARE DONE, VSS STABLE, CONTINUE TO MONITOR . Addendum: 10/16/19 at 1837 by LETICIA CHAPMAN RN ETT TUBE CARE DONE
--- NOTE | 2019-10-16 18:00 | NUR ---
RN NOTE PT REMAINS SEDATED, NO SIGNIFICANT CHANGES NOTED ON THIS SHIFT , ON DIPRIVAN 25 MCG/KG/MIN. NO AGITATION OR DISCOMFORT NOTED. NO S/S OF PAIN NOTED. F/C INTACT AND PATENT DRAINING YELLOWISH COLOR URINE. WILL ENDORSE TO [facility] SHIFT NURSE FOR CONTINUE OF CARE.
--- NOTE | 2019-10-16 20:00 | NUR ---
ICU/RN-RECEIVED PT. POST SEDATED ON DIPRIVAN DRIP AT 25MCG/KG/MIN. NO ELLIOTT. ON THE VENT PER ETT, ON AC MODE, SATS-98%. EKG SR. ON TUBE FEEDS CHAVA. PER PEG. U/O ADEQUATE PER FC. AFEBRILE. ON CONTACT ISOLATION FOR MRSA NARES. PRECAUTIONS IN EFFECT.
[2019-10-17] VITALS (24 sets, daily range): BP systolic 114–164; BP diastolic 52–85
[2019-10-17] MEDS: IV NS 0.9% 250 ML IV PRN (02:10)
[2019-10-17] MEDS: PROPOFOL 100 ML IV PRN (02:42)
--- NOTE | 2019-10-17 03:31 | NUR ---
RT NOTE Pt rec'd orally intubated via ETT sz #7.5 secured at 23cm at the lip line. Pt shows no signs of resp distress. sx'd for thick mod amt of pink frothy secretions. Alarms are set and audible. Vent plugged into red outlet. Ambu bag bedside. Will continue to monitor closely. Addendum: 10/17/19 at 0332 by BERNY VILLAGOMEZ RT Amended: Links added.
[2019-10-17 04:43] LABS: BASOPHILS # (AUTO) 0.1 /CMM (0.0-0.2); BASOPHILS % (AUTO) 0.6 % (0.0-2.0); EOSINOPHILS % (AUTO) 2.8 % (0.0-6.0); HEMATOCRIT 21 % (39-51); LYMPHOCYTES # (AUTO) 0.7 /CMM (0.8-4.8); LYMPHOCYTES % (AUTO) 5.7 % (20.0-44.0); MEAN CORPUSCULAR HGB CONC 33 g/dl (31.0-36.0); MEAN CORPUSCULAR VOLUME 83 fL (80-96); MONOCYTES # (AUTO) 0.5 /CMM (0.1-1.30); MONOCYTES % (AUTO) 4.4 % (2.0-12.0); NEUTROPHILS # (AUTO) 9.9 /CMM (1.8-8.9); NEUTROPHILS % (AUTO) 86.5 % (43.0-81.0); PLATELET COUNT (AUTO) 291 /CMM (150-450); RED BLOOD CELL COUNT(AUTO) 2.56 MIL/uL (4.5-6.0); WHITE BLOOD COUNT (AUTO) 11.5 K/uL (4.3-11.0)
[2019-10-17 04:51] LABS: CALCIUM, SERUM 7.5 mg/dL (8.5-10.1); CARBON DIOXIDE 22 mmol/L (21-32); CHLORIDE 112 mmol/L (98-107); CREATININE 2.6 mg/dL (0.6-1.3); GLUCOSE 134 mg/dL (74-106); MAGNESIUM 1.8 mg/dL (1.8-2.4); PHOSPHORUS 6.1 mg/dL (2.5-4.9); POTASSIUM 3.7 mmol/L (3.5-5.1); SODIUM SERUM 146 mmol/L (136-145); UREA NITROGEN, BLOOD 77 mg/dL (7-18)
[2019-10-17] MEDS: JEVITY 1.2 CAL 1,000 ML BOTTLE GT PRN ×2 (06:00→09:44)
--- NOTE | 2019-10-17 07:06 | NUR ---
RN NOTE RECEIVED PT ON BED, INTUBATED , SEDATED , OPEN EYES AT TIMES. ETT INTACT AT #7.5 24 CM ON LIP , TOLERATING CURRENT VENT SETTING WELL, O2 SAT WNL, NO DISTRESS OR DISCOMFORT NOTED. ON TELE MONITOR SR WITH PVC HR 70'S , WEISS INTACT AND PATENT DRAINING YELLOWISH COLOR URINE. GT INTACT AND PATENT INFUSING JEVITY 65 ML/HR, NO RESIDUAL NOTED. R UA WITH PICC LINE INTACT AND PATENT. SITE CLEAN, DRY AND INTACT, CONTINUE SKIN CARE, SIDE RAILS UP X 3 , CALL LIGHT WITHIN EASY REACH. CONTINUE TO MONITOR .
[2019-10-17] MEDS: AMIODARONE HCL 200 MG TABLET GT SCH (08:04)
[2019-10-17] MEDS: LEVETIRACETAM SOL (5 ML) 100 MG/ML UDC GT SCH ×2 (08:04→20:39)
[2019-10-17] MEDS: MUPIROCIN OINT 2% 22 GM TUBE SCH ×2 (08:05→20:38)
[2019-10-17] MEDS: HYDROCORTISONE SOD SUCCINATE 100 MG/2 ML VIAL IV SCH (08:05)
[2019-10-17] MEDS: Z GUARD REMEDY 2 OZ OINT TP PRN (08:06)
[2019-10-17] MEDS: NITROGLYCERIN 30 GM TUBE TP SCH ×2 (08:07→20:38)
[2019-10-17] MEDS: PANTOPRAZOLE 40 MG/PACK PACK NG SCH (08:29)
--- NOTE | 2019-10-17 12:00 | NUR ---
RN NOTES PT OFF SEDATION , DOES NOT FOLLOW COMMANDS, EYES ARE OPEN AT THIS, VSS STABLE, CONTINUE TO MONITOR.
[2019-10-17 15:55] LABS: OCCULT BLOOD STOOL NEGATIVE (NEGATIVE)
--- NOTE | 2019-10-17 16:00 | NUR ---
RN NOTES PT TOLERATING TF WELL, NO RESIDUAL NOTED, CONTINUE TO MONITOR.
--- NOTE | 2019-10-17 17:32 | NUR ---
RT END OF THE SHIFT REPORT Pt. rec. @0700 AM orally intubated ETT # 7.5 @ 25cm Lip line on ventilator with noted settings. Vent alarms are set and audible with ambu bag by bedside. EMAIL PRODUCTION SPECIALIST cuff pressure done, HME changed. Vent is plugged into red outlet. No Respiratory distress noted t/o day. Bilaterally diminished B/S and sux'd for moderate amount of wyatt secretions, equal chest rise noted. no chnages T/O day. report will pass to PM shift.
--- NOTE | 2019-10-17 17:35 | NUR ---
RT END OF THE SHIFT REPORT Pt. 84 Y old Male rec. @0700 AM orally intubated ETT # 7.5 @ 25 CM Lip line on ventilator with noted settings. Vent alarms are set and audible with ambu bag by bedside. COIL CUTTER cuff pressure done, HME changed. Vent is plugged into red outlet. No Respiratory distress noted no changes t/o day. Bilaterally diminished b/s and sux'd for moderate amount of wyatt secretions, equal chest rise noted. report will pass to PM shift. Addendum: 10/17/19 at 1737 by BRIAN LUCAS RT Amended: Links added.
[2019-10-17] MEDS: CLOTRIMAZOLE 1% 15 GM TUBE TP SCH (17:40)
[2019-10-17] MEDS: SILVER SULFADIAZINE CREAM 25 GM TUBE TP SCH (17:40)
--- NOTE | 2019-10-17 18:00 | NUR ---
RN NOTES NO SIGNIFICANT CHANGES NOTED ON THIS SHIFT, SR UP x3, CALL LIGHT WITHIN EASY REACH, WILL ENDOSE TO PROGRAM SUPPORT CLERK NURSE FOR CONTINUITY OF CARE .
--- NOTE | 2019-10-17 19:49 | NUR ---
ICU/RN-RECEIVED PT. FROM [facility] RN . EYES OPEN, NON INTERACTIVE, NO ELLIOTT. ON THE VENT PER ETT, ON AC MODE. SATS-98%. EKG SR W/ BP-152/74. ON TUBE FEEDS, WELL TOLERATED. AFEBRILE. ON CONTACT ISOLATION FOR MRSA NARES. PRECAUTIONS TAKEN.
[2019-10-17] MEDS: LEVOFLOXACIN (500MG) 500 MG TABLET PO SCH (20:13)
[2019-10-18] VITALS (30 sets, daily range): BP systolic 129–169; BP diastolic 63–97
[2019-10-18] MEDS: JEVITY 1.2 CAL 1,000 ML BOTTLE GT PRN ×2 (00:19→18:26)
[2019-10-18 04:31] LABS: BASOPHILS % (AUTO) 0.2 % (0.0-2.0); EOSINOPHILS % (AUTO) 2.4 % (0.0-6.0); HEMATOCRIT 21 % (39-51); LYMPHOCYTES # (AUTO) 0.6 /CMM (0.8-4.8); LYMPHOCYTES % (AUTO) 4.8 % (20.0-44.0); MEAN CORPUSCULAR HGB CONC 32 g/dl (31.0-36.0); MEAN CORPUSCULAR VOLUME 84 fL (80-96); MONOCYTES # (AUTO) 0.6 /CMM (0.1-1.30); MONOCYTES % (AUTO) 5.1 % (2.0-12.0); NEUTROPHILS # (AUTO) 10.7 /CMM (1.8-8.9); NEUTROPHILS % (AUTO) 87.5 % (43.0-81.0); PLATELET COUNT (AUTO) 276 /CMM (150-450); WHITE BLOOD COUNT (AUTO) 12.2 K/uL (4.3-11.0)
[2019-10-18 04:52] LABS: CALCIUM, SERUM 7.8 mg/dL (8.5-10.1); CARBON DIOXIDE 25 mmol/L (21-32); CHLORIDE 115 mmol/L (98-107); CREATININE 2.3 mg/dL (0.6-1.3); GLUCOSE 101 mg/dL (74-106); SODIUM SERUM 150 mmol/L (136-145); UREA NITROGEN, BLOOD 77 mg/dL (7-18)
[2019-10-18 05:06] LABS: HEMOGLOBIN 6.7 g/dL (13.5-17.5)
[2019-10-18 05:23] LABS: IRON, SERUM 32 ug/dl (50-175); TOTAL IRON BINDING CAPACITY 119 ug/dl (250-450)
[2019-10-18 05:37] LABS: FERRITIN 667 ng/mL (8-388)
[2019-10-18] MEDS ORDERED: NITROGLYCERIN PACKET 1 GM PACKET TD SCH (07:00)
--- NOTE | 2019-10-18 07:00 | NUR ---
SCANNER SUPERVISOR Opening Patient attached to [facility] vent, tolerating current settings, no distress noted. Opens eyes, unable to follow command. ETT 27 @lip. Tele monitor attached, SR HR 80s. Elizabeth draining to gravity. Jevity running @65mL/hr, no residual noted, placement verified via aspiration + auscultation. MICHELE PICC c/d/i, patent. HOB elevated for aspiration precautions. Will continue to monitor
[2019-10-18] MEDS: AMIODARONE HCL 200 MG TABLET GT SCH (08:09)
[2019-10-18] MEDS: LEVETIRACETAM SOL (5 ML) 100 MG/ML UDC GT SCH ×2 (08:09→20:59)
[2019-10-18 08:10] LABS: EOSINOPHILS % (MANUAL) 2 % (0-4); LYMPHOCYTES % (MANUAL) 6 % (16-48); MONOCYTES % (MANUAL) 5 % (0-11.0); NEUTROPHILS % (MANUAL) 87 (42-76)
[2019-10-18] MEDS: PANTOPRAZOLE 40 MG/PACK PACK NG SCH (08:10)
[2019-10-18] MEDS: HYDROCORTISONE SOD SUCCINATE 100 MG/2 ML VIAL IV SCH (08:11)
--- NOTE | 2019-10-18 08:28 | NUR ---
RT PT RECEIVED ORALLY INTUBATED ON [facility] VENT. 7.5 ETT, SECURED AT 23CM AT THE LIP. VENT PLUGGED INTO RED OUTLET. ALARMS ON AND WORKING PROPERLY. AMBU BAG AT HEAD OF BED. SUCTIONED MOD AMOUNTS OF PALE YELLOW SECRETIONS. NO SOB NOTED. WILL CONTINUE TO MONITOR CLOSELY. Addendum: 10/18/19 at 1853 by KRISTINE MULLIGAN RT Amended: Links added.
[2019-10-18] MEDS: MUPIROCIN OINT 2% 22 GM TUBE SCH ×2 (09:00→21:01)
[2019-10-18] MEDS: CLOTRIMAZOLE 1% 15 GM TUBE TP SCH ×2 (09:00→17:00)
[2019-10-18] MEDS: NITROGLYCERIN 30 GM TUBE TP SCH ×2 (09:00→21:00)
[2019-10-18] MEDS: SILVER SULFADIAZINE CREAM 25 GM TUBE TP SCH (09:00)
[2019-10-18 10:45] LABS: ABG BASE EXCESS -3.6 mmol/L; ABG OXYGEN SATURATION 96.9 % (92.0-98.5); ABG PCO2 29.7 mmHg (35.0-45.0); ABG PH 7.446 (7.350-7.450); ABG PO2 110.9 mmHg (75.0-100.0); AaDO2 68.1 mmHg; MetHb 1.1 % (0.0-1.5); O2Hb 94.9 % (94.0-97.0); PEEP,BG 5 cm H2O; SITE, ABG Right Brachial; VENT MODE, BG SIMV 4 / PS 15; VT, ABG 450 mL
[2019-10-18 18:04] LABS: OCCULT BLOOD STOOL POSITIVE (NEGATIVE)
--- NOTE | 2019-10-18 18:49 | NUR ---
DENTAL ASSISTING INSTRUCTOR CLOSING Patient remains attached to [facility] vent, tolerating SIMV 4, 450, 30%, PEEP 5 settings. ETT 27 @lip. Tele monitor attached, SR HR 80s throughout shift, PVCs, PACs. Elizabeth output this shift 875mL clear yellow urine, left draining to gravity. BM today sent to lab showed stool OB (+), Elpidio aware, verbalized @1836 via phone he will contact GI and input a CBC order for tomorrow. Transfused 1U RBC today, no reactions noted, see vitals. Post transfusion hgb 8.0. Wound care completed as ordered, turned per protocol. Jevity running @65mL/hr, no residual noted, placement verified via aspiration + auscultation. MICHELE PICC c/d/i, patent. Dr. Fernandes spoke to daughter today.
--- NOTE | 2019-10-18 20:00 | NUR ---
ICU/RN-RECEIVED PT. FROM DAYSHIFT RN, AWAKE, ALERT, NON INTERACTIVE. NO ELLIOTT. ON THE VENT PER ETT, ON SIMV MODE, SATS.- 97%. EKG SR W/ PAC,S. ON TUBE FEEDS, WELL TOLERATED, URINE OUTPUT ADEQUATE PER FC. AFEBRILE. NO S/S OF PAIN OR DISCOMFORT. ON CONTACT ISOLATION FOR MRSA NARES. FULL CODE.
[2019-10-18] MEDS: IV NS 0.9% 250 ML IV PRN (20:13)
[2019-10-19] VITALS (25 sets, daily range): BP systolic 130–175; BP diastolic 61–105
[2019-10-19 04:39] LABS: BASOPHILS # (AUTO) 0.1 /CMM (0.0-0.2); BASOPHILS % (AUTO) 0.5 % (0.0-2.0); EOSINOPHILS % (AUTO) 2.1 % (0.0-6.0); HEMATOCRIT 24 % (39-51); HEMOGLOBIN 7.7 g/dL (13.5-17.5); LYMPHOCYTES # (AUTO) 0.6 /CMM (0.8-4.8); LYMPHOCYTES % (AUTO) 4.7 % (20.0-44.0); MEAN CORPUSCULAR HGB CONC 33 g/dl (31.0-36.0); MEAN CORPUSCULAR VOLUME 84 fL (80-96); MONOCYTES # (AUTO) 0.7 /CMM (0.1-1.30); MONOCYTES % (AUTO) 5.8 % (2.0-12.0); NEUTROPHILS # (AUTO) 10.9 /CMM (1.8-8.9); NEUTROPHILS % (AUTO) 86.9 % (43.0-81.0); PLATELET COUNT (AUTO) 252 /CMM (150-450); RED BLOOD CELL COUNT(AUTO) 2.82 MIL/uL (4.5-6.0); WHITE BLOOD COUNT (AUTO) 12.6 K/uL (4.3-11.0)
[2019-10-19 04:53] LABS: ALANINE AMINOTRANSFERASE 25 U/L (12-78); ALKALINE PHOSPHATASE 64 U/L (46-116); ASPARTATE AMINOTRANSFERASE 21 U/L (15-37); BILIRUBIN,TOTAL 0.3 mg/dL (0.2-1.0); CALCIUM, SERUM 7.6 mg/dL (8.5-10.1); CARBON DIOXIDE 25 mmol/L (21-32); CHLORIDE 119 mmol/L (98-107); CREATININE 2.1 mg/dL (0.6-1.3); GLUCOSE 121 mg/dL (74-106); MAGNESIUM 1.6 mg/dL (1.8-2.4); SODIUM SERUM 155 mmol/L (136-145); TOTAL PROTEIN, SERUM 5.4 g/dL (6.4-8.2); UREA NITROGEN, BLOOD 70 mg/dL (7-18)
[2019-10-19 05:11] LABS: ALBUMIN 1.4 g/dL (3.4-5.0)
[2019-10-19] MEDS: SILVER SULFADIAZINE CREAM 25 GM TUBE TP SCH (09:00)
[2019-10-19] MEDS: MUPIROCIN OINT 2% 22 GM TUBE SCH ×2 (09:00→20:17)
[2019-10-19] MEDS: NITROGLYCERIN 30 GM TUBE TP SCH ×2 (09:00→20:12)
[2019-10-19] MEDS: CLOTRIMAZOLE 1% 15 GM TUBE TP SCH ×2 (09:00→17:00)
[2019-10-19] MEDS: LEVETIRACETAM SOL (5 ML) 100 MG/ML UDC GT SCH ×2 (09:09→20:08)
[2019-10-19] MEDS: AMIODARONE HCL 200 MG TABLET GT SCH (09:09)
[2019-10-19] MEDS: HYDROCORTISONE SOD SUCCINATE 100 MG/2 ML VIAL IV SCH (09:10)
[2019-10-19] MEDS: PANTOPRAZOLE 40 MG/PACK PACK NG SCH (09:10)
[2019-10-19] MEDS ORDERED: Magnesium 1GM/D5W 100ML PREMIX 100 ML IV SCH ×2 (10:09→14:30)
[2019-10-19 10:41] LABS: ABG BASE EXCESS -2.8 mmol/L; ABG OXYGEN SATURATION 95.1 % (92.0-98.5); ABG PCO2 31.3 mmHg (35.0-45.0); ABG PH 7.438 (7.350-7.450); AaDO2 77.7 mmHg; MetHb 0.5 % (0.0-1.5); O2Hb 94.6 % (94.0-97.0); SITE, ABG Right Radial; VENT MODE, BG T Piece 28%
[2019-10-19] MEDS: JEVITY 1.2 CAL 1,000 ML BOTTLE GT PRN (14:04)
[2019-10-19] MEDS ORDERED: Magnesium 1GM/D5W 100ML PREMIX PIGGYBACK IV ONE (14:30)
[2019-10-19 15:53] LABS: OCCULT BLOOD STOOL NEGATIVE (NEGATIVE)
--- NOTE | 2019-10-19 19:15 | NUR ---
PIZZA HUT ASSISTANT NOTE PATIENT RECEIVED NON VERBAL OPENS EYES SPONTANEOUSLY BUT NO PURPOSEFUL TRACKING OR MOVEMENT, DOES NOT FOLLOW COMMANDS. PATIENT ON T-PIECE INTUBATED ON 5L COOL AEROSOL. TOLERATING WELL NO S/S OF RESP DISTRESS, SATURATION 98 BREATHING EVEN AND UNLABORED. PATIENT HR IN THE 80'S WITH OCCASIONAL NOTED PVC. PATIENT HAS WEISS IN PLACE DRAINING WELL. PATIENT TURNED AND REPOSITIONED FOR COMFORT. PATIENT TOLERATING TUBE FEEDING AT 65 ML MINIMAL RESIDUAL NOTED. PATIENT PICC LINE IN MICHELE PATENT AND INTACT NO S/S OF INFECTIONS. RN WILL CONTINUE TO MONITOR FOR CHANGES. SAFETY PRECAUTIONS IN PLACE.
--- NOTE | 2019-10-19 19:21 | NUR ---
NURSE HEAD Closing Patient is on 5L O2 via T piece. No SOB or respiratory distress noted. ETT 27 @lip. Tele monitor attached, SR HR 80s throughout shift, PVCs. x1 episode of tachy/hypertension, Tylenol given. Elizabeth output yellow urine with sediment - see I/Os, left draining to gravity. Wound care completed as ordered, turned per protocol. Jevity running @65mL/hr, no residual noted, placement verified via aspiration + auscultation. MICHELE PICC c/d/i, patent.
[2019-10-19] MEDS: LEVOFLOXACIN (500MG) 500 MG TABLET PO SCH (20:08)
--- NOTE | 2019-10-19 22:03 | NUR ---
OIL WELL LOGGING ENGINEER NOTE PATIENT NOTED TO BE TACHYCARDIC AND TACHYPNEANIC 160 RR 50 ON TPEICE 5 L. PATIENT SUTIONED YELLOWISH MUCOUS NOTED. UPPED O2 TO 8 L. RT CALLED. EMMANUEL ROE.
--- NOTE | 2019-10-19 22:18 | NUR ---
MOBILE SALES ASSISTANT NOTE EMMANUEL MCKENZIE ORDERED 2MG MORPHING IVP NOW.
[2019-10-19] MEDS ORDERED: MORPHINE SULFATE INJ 2 MG/ML DISP.SYRIN IV ONE (22:30)
[2019-10-20] VITALS (24 sets, daily range): BP systolic 124–152; BP diastolic 61–89
[2019-10-20 05:05] LABS: CALCIUM, SERUM 7.8 mg/dL (8.5-10.1); CARBON DIOXIDE 28 mmol/L (21-32); CREATININE 1.9 mg/dL (0.6-1.3); GLUCOSE 135 mg/dL (74-106); MAGNESIUM 1.9 mg/dL (1.8-2.4); UREA NITROGEN, BLOOD 70 mg/dL (7-18)
[2019-10-20 05:12] LABS: CHLORIDE 120 mmol/L (98-107); POTASSIUM 4.3 mmol/L (3.5-5.1); SODIUM SERUM 155 mmol/L (136-145)
[2019-10-20 05:18] LABS: BASOPHILS # (AUTO) 0.1 /CMM (0.0-0.2); BASOPHILS % (AUTO) 0.5 % (0.0-2.0); HEMATOCRIT 25 % (39-51); HEMOGLOBIN 8.2 g/dL (13.5-17.5); LYMPHOCYTES # (AUTO) 0.5 /CMM (0.8-4.8); LYMPHOCYTES % (AUTO) 4.1 % (20.0-44.0); MEAN CORPUSCULAR HGB CONC 33 g/dl (31.0-36.0); MEAN CORPUSCULAR VOLUME 84 fL (80-96); MONOCYTES # (AUTO) 0.8 /CMM (0.1-1.30); MONOCYTES % (AUTO) 6.6 % (2.0-12.0); NEUTROPHILS # (AUTO) 11.1 /CMM (1.8-8.9); NEUTROPHILS % (AUTO) 87.8 % (43.0-81.0); PLATELET COUNT (AUTO) 229 /CMM (150-450); RED BLOOD CELL COUNT(AUTO) 2.93 MIL/uL (4.5-6.0); WHITE BLOOD COUNT (AUTO) 12.6 K/uL (4.3-11.0)
--- NOTE | 2019-10-20 07:30 | NUR ---
ICU/RN-RECEIVED PT. FROM NIGHTSHIFT RN W/ EYES OPN, NON-INTERACTIVE. ON THE VENT PER ETT, ON SIMV MODE. SATS-97%, EKG SR W/ HR-130/80. ON TUBE FEEDS PER PEG. TIOL. WELL. U/O ADEQUATE PER FC. ON CONTACT ISOLATION FOR MRSA NARES. PRECAUTIONS IN EFFECT. AFEBRILE. PT. IS A FULL CODE.
--- NOTE | 2019-10-20 07:50 | NUR ---
ICU/RN-SEEN BY DR. OJEDA.
--- NOTE | 2019-10-20 08:00 | NUR ---
ICU/RN-SEEN BY DR. WOODARD.
--- NOTE | 2019-10-20 08:30 | NUR ---
ICU/RN-SEEN BY DR. JAIME. WILL TALK TO FAMILY LATER TODAY REGARDING PT STATUS AND PLAN OF CARE.
[2019-10-20] MEDS: MUPIROCIN OINT 2% 22 GM TUBE SCH ×2 (08:32→20:35)
[2019-10-20] MEDS: SILVER SULFADIAZINE CREAM 25 GM TUBE TP SCH (08:33)
[2019-10-20] MEDS: CLOTRIMAZOLE 1% 15 GM TUBE TP SCH ×2 (08:33→16:35)
[2019-10-20] MEDS: NITROGLYCERIN 30 GM TUBE TP SCH ×2 (08:36→20:34)
[2019-10-20] MEDS: AMIODARONE HCL 200 MG TABLET GT SCH (08:41)
[2019-10-20] MEDS: LEVETIRACETAM SOL (5 ML) 100 MG/ML UDC GT SCH ×2 (08:41→20:32)
[2019-10-20] MEDS: PANTOPRAZOLE 40 MG/PACK PACK NG SCH (08:42)
[2019-10-20] MEDS: HYDROCORTISONE SOD SUCCINATE 100 MG/2 ML VIAL IV SCH (08:42)
[2019-10-20 09:21] LABS: ABG PCO2 34.2 mmHg (35.0-45.0); ABG PH 7.473 (7.350-7.450); ABG PO2 103.1 mmHg (75.0-100.0); AaDO2 70.6 mmHg; COHb 0.5 % (0.5-1.5); MetHb 0.3 % (0.0-1.5); O2Hb 96.2 % (94.0-97.0); SITE, ABG Right Radial; VENT MODE, BG SIMV 4 450 PS 15 30%
--- NOTE | 2019-10-20 09:30 | NUR ---
ICU/RN- ABG DONE BY RT W/ RESULTS ACCEPTABLE, NOTED.REMAINS ON SIMV. NOT IN ANY DISTRESS.
[2019-10-20] MEDS: IV NS 0.9% 250 ML IV PRN (10:39)
--- NOTE | 2019-10-20 11:19 | NUR ---
RT NOTE RECEIVED PT MECHANICALLY VENTILATED VIA 7.5 ETT 25 CM AT LIP. CUFF INFLATED. ETT SECURE. VENTILATOR SETTINGS PRESCRIBED. ALARMS SET PER PROTOCOL AND AUDIBLE. VENT PLUGGED IN TO RED OUTLET. AMBU BAG AT BED SIDE. NO DISTRESS NOTED. Addendum: 10/20/19 at 1120 by LEONCIO BHATIA RT Amended: Links added.
--- NOTE | 2019-10-20 13:00 | NUR ---
ICU/RN-FC NOTED TO BE LEAKING, W/ LARGE AMOUNT OF URINE. ADDED 2 ML OF WATER TO INFLATION PORT. WILL MONITOR CLOSELY AND CHANGE FC NEEDED.
--- NOTE | 2019-10-20 15:00 | NUR ---
RN/ICU- NO FC LEAKAGE NOTED SO FAR.
--- NOTE | 2019-10-20 15:45 | NUR ---
ICU/RN- STABLE, REMAINS ON THE VENT PER ETT. DR. JAIME SPOKE TO FAMILY BY PHONE REGARDING PLAN OF CARE. PT. WILL BE SCHEDULED FOR TRACH PER FAMILY DECISION. REPORT GIVEN TO Toño PERERA RN.
--- NOTE | 2019-10-20 16:57 | NUR ---
VOLUNTEER SERVICES DIRECTOR: pt is obtunded, with open eyes, no eyes contact, rest, unable to follow commands, lips tremor without bitting ETT, no grimacing, O2sat. over 96% on SIMV mode, FiO2 30%, no SOB/distress, SR, SBP is over 100 below 150, GTF residual is 15ml, no BM now, no f/c leak, all PM/skin/wounds care done by FRANCO Diamond, free H2O 250ml q4h via GT, keep HOB over 40, plan: pt is candidate for trach placement, consent is in chart, not on schedule yet by report, pt.was suctioned well
--- NOTE | 2019-10-20 19:15 | NUR ---
RN OPENING NOTES RECEIVED PATIENT OBTUNDED, OPENS EYES, DOES NOT FOLLOW COMMANDS. NOTED LIPS WITH TREMOR WITHOUT BITTING ETT. ON TELE MONITOR SR WITH HR 90'S. MECHANICAL VENT SETTINGS ORDERED, ON SIMV MODE FIO2 30% PEEP OF 5, TOLERATING WELL, NO SOB OR DISTRESS NOTED, SATURATING 99% AT THE MOMENT. IV SITE MICHELE PICC, FLUSHING AND PATENT, SITE C/D/I, SL. GTF JEVITY RUNNING AT 65ML/HR, MINIMAL RESIDUAL NOTED. WEISS CATH DRAINING YELLOW URINE NOTED. SAFETY MEASURES IN PLACE; CL WITHIN REACH, SIDE RAILS UP X2, HOB ELEVATED, BED LOCKED AND IN LOW POSITION, ISOLATION PRECAUTION IN PLACE. PER AM RN, PT CANDIDATE FOR TRACH PLACEMENT AND CONSENT IN CHART. WILL CONT TO MONITOR PT CLOSELY.
[2019-10-20] MEDS: JEVITY 1.2 CAL 1,000 ML BOTTLE GT PRN (19:26)
--- NOTE | 2019-10-20 19:43 | NUR ---
PT RCVD ORALLY INTUBATED 7.5 ETT @ 25 CM @ LIP ON MECHANICAL VENT WITH CHARTED SETTINGS. SX DONE. PT ETT IS PATENT AND SECURE. VENT ALARMS APPEAR TO BE FUNCTIONING PROPERLY. VENT PLUGGED INTO RED OUTLET. AMBU BAG AT BEDSIDE. NO SOB NOTED. Addendum: 10/20/19 at 8 by NOVA GONZALEZ RT Amended: Links added.
[2019-10-21] VITALS (26 sets, daily range): BP systolic 109–148; BP diastolic 52–84
[2019-10-21 05:16] LABS: BASOPHILS # (AUTO) 0.1 /CMM (0.0-0.2); BASOPHILS % (AUTO) 0.6 % (0.0-2.0); EOSINOPHILS % (AUTO) 1.3 % (0.0-6.0); HEMATOCRIT 24 % (39-51); HEMOGLOBIN 8.4 g/dL (13.5-17.5); LYMPHOCYTES # (AUTO) 0.7 /CMM (0.8-4.8); LYMPHOCYTES % (AUTO) 6.4 % (20.0-44.0); MEAN CORPUSCULAR HGB CONC 34 g/dl (31.0-36.0); MEAN CORPUSCULAR VOLUME 85 fL (80-96); MONOCYTES # (AUTO) 0.8 /CMM (0.1-1.30); NEUTROPHILS # (AUTO) 9.1 /CMM (1.8-8.9); NEUTROPHILS % (AUTO) 84.7 % (43.0-81.0); PLATELET COUNT (AUTO) 198 /CMM (150-450); RED BLOOD CELL COUNT(AUTO) 2.88 MIL/uL (4.5-6.0); WHITE BLOOD COUNT (AUTO) 10.7 K/uL (4.3-11.0)
[2019-10-21 05:30] LABS: ALANINE AMINOTRANSFERASE 29 U/L (12-78); ALBUMIN 1.5 g/dL (3.4-5.0); ALKALINE PHOSPHATASE 66 U/L (46-116); ASPARTATE AMINOTRANSFERASE 21 U/L (15-37); BILIRUBIN,TOTAL 0.2 mg/dL (0.2-1.0); CALCIUM, SERUM 7.7 mg/dL (8.5-10.1); CARBON DIOXIDE 28 mmol/L (21-32); CHLORIDE 121 mmol/L (98-107); CREATININE 1.7 mg/dL (0.6-1.3); GLUCOSE 125 mg/dL (74-106); MAGNESIUM 1.9 mg/dL (1.8-2.4); PHOSPHORUS 4.9 mg/dL (2.5-4.9); POTASSIUM 4.5 mmol/L (3.5-5.1); TOTAL PROTEIN, SERUM 5.5 g/dL (6.4-8.2); UREA NITROGEN, BLOOD 66 mg/dL (7-18)
[2019-10-21 05:31] LABS: SODIUM SERUM 159 mmol/L (136-145)
--- NOTE | 2019-10-21 06:51 | NUR ---
RN NOTES PATIENT REMAINS STABLE. NO ACUTE CHANGES THROUGHOUT SHIFT. TOLERATING MECH VENT SETTINGS, SATURATING >95%, NO SOB/RESPIRATORY DISTRESS NOTED. MICHELE PICC LINE FLUSHING AND PATENT, SITE C/D/I, S/L. FC INTACT AND DRAINING WELL. ALL MD ORDERS ATTENDED, ALL NEEDS ANTICIPATED AND MET. WOUND TX DONE ORDERED. REPOSITIONED Q2H. WILL CONT TO MONITOR PT. WILL ENDORSE TO AM RN FOR LUIS FERNANDO.
--- NOTE | 2019-10-21 07:47 | NUR ---
WIRE ROPE SLING MAKER: pt.is obtunded, with open eyes, short eyes contact but unable to follow commands, no tracking reaction, rest, no grimacing, SR, SBP over 100 below 150, O2sat. over 95% on SIMV mode, tolerated well, GTF residual WNL, keep HOB over 40, all wounds care done by report, Na+ 159, reported, getting free H2O, suctioned well
[2019-10-21] MEDS: IV D5W 1,000 ML IV PRN ×2 (07:58→18:03)
[2019-10-21] MEDS: HYDROCORTISONE SOD SUCCINATE 100 MG/2 ML VIAL IV SCH (08:15)
[2019-10-21] MEDS: AMIODARONE HCL 200 MG TABLET GT SCH (08:15)
[2019-10-21] MEDS: PANTOPRAZOLE 40 MG/PACK PACK NG SCH (08:15)
[2019-10-21] MEDS: LEVETIRACETAM SOL (5 ML) 100 MG/ML UDC GT SCH ×2 (08:15→21:49)
[2019-10-21] MEDS: NITROGLYCERIN 30 GM TUBE TP SCH ×2 (08:16→21:00)
[2019-10-21] MEDS: SILVER SULFADIAZINE CREAM 25 GM TUBE TP SCH (08:17)
[2019-10-21] MEDS: MUPIROCIN OINT 2% 22 GM TUBE SCH ×2 (08:17→21:52)
[2019-10-21] MEDS: Z GUARD REMEDY 2 OZ OINT TP PRN (08:18)
[2019-10-21] MEDS: CLOTRIMAZOLE 1% 15 GM TUBE TP SCH ×2 (08:18→17:14)
--- NOTE | 2019-10-21 08:40 | NUR ---
SUPERVISOR PORCELAIN DEPARTMENT: is in room, updated with pt.current status, O2sat., VS, suction amount, neurostatus, GTF, I/O, waiting trach placement by
[2019-10-21] MEDS: JEVITY 1.2 CAL 1,000 ML BOTTLE GT PRN (09:55)
--- NOTE | 2019-10-21 11:39 | NUR ---
TRACK LAYING MACHINE OPERATOR: pt.daughter called/updated with pt current condition, VS, neurostatus, GTF, IVF, vent support, orders, waiting schedule for trach placement
--- NOTE | 2019-10-21 18:00 | NUR ---
PROFESSIONAL NURSE: pt is obtunded, rest, with open eyes, O2sat. over 96%, no SOB, SR, SBP over 100, GTF residual WNL, tolerated well for free water, suctioned well, all PM/bath/skin/wounds care done, no oral cavity bleeding now, no Sz
[2019-10-22] VITALS (27 sets, daily range): BP systolic 86–153; BP diastolic 36–97
[2019-10-22] MEDS: IV D5W 1,000 ML IV PRN ×2 (04:06→15:16)
[2019-10-22] MEDS: JEVITY 1.2 CAL 1,000 ML BOTTLE GT PRN ×2 (04:11→15:16)
[2019-10-22 04:58] LABS: BASOPHILS # (AUTO) 0.1 /CMM (0.0-0.2); BASOPHILS % (AUTO) 0.7 % (0.0-2.0); EOSINOPHILS % (AUTO) 1.7 % (0.0-6.0); HEMATOCRIT 21 % (39-51); LYMPHOCYTES # (AUTO) 0.6 /CMM (0.8-4.8); LYMPHOCYTES % (AUTO) 6.1 % (20.0-44.0); MEAN CORPUSCULAR HGB CONC 33 g/dl (31.0-36.0); MEAN CORPUSCULAR VOLUME 85 fL (80-96); MONOCYTES # (AUTO) 0.5 /CMM (0.1-1.30); MONOCYTES % (AUTO) 5.4 % (2.0-12.0); NEUTROPHILS # (AUTO) 8.3 /CMM (1.8-8.9); NEUTROPHILS % (AUTO) 86.1 % (43.0-81.0); PLATELET COUNT (AUTO) 167 /CMM (150-450); WHITE BLOOD COUNT (AUTO) 9.7 K/uL (4.3-11.0)
[2019-10-22 05:01] LABS: HEMOGLOBIN 7.1 g/dL (13.5-17.5)
[2019-10-22 05:20] LABS: ALANINE AMINOTRANSFERASE 30 U/L (12-78); ALKALINE PHOSPHATASE 59 U/L (46-116); ASPARTATE AMINOTRANSFERASE 19 U/L (15-37); BILIRUBIN,TOTAL 0.2 mg/dL (0.2-1.0); CALCIUM, SERUM 7.3 mg/dL (8.5-10.1); CARBON DIOXIDE 30 mmol/L (21-32); CHLORIDE 114 mmol/L (98-107); CREATININE 1.6 mg/dL (0.6-1.3); GLUCOSE 135 mg/dL (74-106); MAGNESIUM 1.6 mg/dL (1.8-2.4); PHOSPHORUS 3.7 mg/dL (2.5-4.9); POTASSIUM 3.8 mmol/L (3.5-5.1); SODIUM SERUM 150 mmol/L (136-145); TOTAL PROTEIN, SERUM 5.1 g/dL (6.4-8.2); UREA NITROGEN, BLOOD 59 mg/dL (7-18)
[2019-10-22 05:25] LABS: ALBUMIN 1.4 g/dL (3.4-5.0)
--- NOTE | 2019-10-22 07:15 | NUR ---
OFFICE SUPPORT CLERK NOTES RECEIVED PATIENT OPENS EYES , DOESN'T FOLLOW COMMANDS , NOT IN ACUTE DISTRESS , ON VENT SIMV MODE SETTINGS ORDERED WITH SPO2 OF 1000% , ETT 7.03/[address] , SR 65 ON BEDSIDE MONITOR , FC DRAINING VIA GRAVITY WITH CLEAR YELLOW URINE , GT PATENT AND INTACT WITH JEVITY @ 65ML/HR TOLERATING WELL WITH 10ML RESIDUALS , MICHELE PICC LINE WITH D5W @ 100ML/HR INFUSING WELL , ALL NEEDS ATTENDED , BED ON LOW AND LOCKED POSITION , SIDE RAILS X2 ,CALL LIGHT WITHIN REACH , HOB @ 45 , ALARMS MADE AUDIBLE , WILL CONTINUE TO MONITOR
--- NOTE | 2019-10-22 07:25 | NUR ---
rn notes patient in bed, resting comfortably with no distress noted. no physical manifestation of pain or discomfort. obtunded, non verbal. for trach placement, awaiting order. kept clean and dry.
[2019-10-22] MEDS: LEVETIRACETAM SOL (5 ML) 100 MG/ML UDC GT SCH ×2 (08:11→21:20)
[2019-10-22] MEDS: AMIODARONE HCL 200 MG TABLET GT SCH (08:12)
[2019-10-22] MEDS: HYDROCORTISONE SOD SUCCINATE 100 MG/2 ML VIAL IV SCH (08:12)
[2019-10-22] MEDS: PANTOPRAZOLE 40 MG/PACK PACK NG SCH (08:12)
[2019-10-22] MEDS: SILVER SULFADIAZINE CREAM 25 GM TUBE TP SCH (08:14)
[2019-10-22] MEDS: CLOTRIMAZOLE 1% 15 GM TUBE TP SCH ×2 (08:14→17:17)
[2019-10-22] MEDS: MUPIROCIN OINT 2% 22 GM TUBE SCH ×2 (08:14→21:21)
[2019-10-22] MEDS: NITROGLYCERIN 30 GM TUBE TP SCH ×2 (08:18→21:22)
[2019-10-22] MEDS ORDERED: Magnesium 1GM/D5W 100ML PREMIX 100 ML IV SCH (09:22)
--- NOTE | 2019-10-22 10:04 | NUR ---
PESTICIDE USE MEDICAL COORDINATOR NOTES RECEIVED A CALL FROM LAB , 1 UNIT PRBC NOT AVAILABLE AT THIS TIME DUE TO PT BLOOD TYPE , PER LAB THEY NEED TO ORDER IT FROM [facility]
--- NOTE | 2019-10-22 13:19 | NUR ---
NON ACOUSTIC OPERATOR NOTES SEEN AND EVALUATED BY MG BROOKS , DISCUSSED LATEST LABS , ON SIMV MODE SETTINGS ORDERED TOLERATING WELL , GT FEEDING RECOMMENDED BY DIETARY TO INCREASE AT 70ML/HR , PENDING BLOOD TRANSFUSION 1UNIT PRC , VSS , AFEBRILE , LUNCH COOK AWARE . OK TO INCREASE FEEDINGS @ 70ML/HR RECEIVED A CALL FROM SURGERY THAT PT IS SCHEDULED FOR TOMORROW FOR TRACH PLACEMENT , ADVISE TO PLACE PT ON NPO POST MIDNIGHT
--- NOTE | 2019-10-22 15:45 | NUR ---
CUFF MATCHER NOTES REPORT GIVEN TO VIOLETA FOR CONTINUITY OF CARE , ALL QUESTIONS ANSWERED ,PT STABLE AT AT THIS TIME , NO CHANGE IN CONDITION OBSERVED
--- NOTE | 2019-10-22 18:00 | NUR ---
ICU/RN AFTERNOON ROUNDS NO ACUTE CHANGE OF CONDITION. PT TURNED AND REPOSITIONED. MONITORING CONTINUED.
--- NOTE | 2019-10-22 19:24 | NUR ---
ICU/RN AM SHIFT END NOTES ALL NEEDS MET. NO ACTE CHANGE OF CONDITION NOTED SINCE PT WAS ENDORSED TO CONTINUE CARE THIS AFTERNOON. PT ENDORSED TO PM NURSE TO CONTINUE CARE. ALSO ENDORSED TO PLACED PT NPO AFTER MIDNIGHT FOR TRACH TUBE PLACEMENT IN AM. CL WITHIN REACHED, SAFETY MAINTAINED AND ISOLATION OBSERVED.
--- NOTE | 2019-10-22 19:45 | NUR ---
RN NOTE Pt supine, awake, aware of person, sluggish. Breathing on ETT via Vent, even, quiet, & regular. Pt NSR w occasional SVT, R arm w purposeful slow movement, L arm weak. Abdomen soft, non tender, BSx4 active. G-tube feeding stopped by day RN, residual is zero, restarted the rate at 65ml/hr. MICHELE picc line patent running ordered fluid. FC bag with clear yellow urine draining well, site is without obvious deficit at this point. Legs are elevated and feet off from bed. Sacral area w dressing, minimal drainage. Safety and comfort checked in pt. Room is near nursing station for frequent monitoring of the patient.
--- NOTE | 2019-10-22 23:55 | NUR ---
Pt received 1 PRBC, no adversity observed, resting comfortable, VS within the range.
[2019-10-23] VITALS (27 sets, daily range): BP systolic 114–163; BP diastolic 57–102
[2019-10-23] MEDS: IV D5W 1,000 ML IV PRN ×2 (00:57→22:22)
[2019-10-23 04:37] LABS: BASOPHILS # (AUTO) 0.1 /CMM (0.0-0.2); BASOPHILS % (AUTO) 0.6 % (0.0-2.0); HEMATOCRIT 26 % (39-51); HEMOGLOBIN 8.6 g/dL (13.5-17.5); LYMPHOCYTES # (AUTO) 0.6 /CMM (0.8-4.8); LYMPHOCYTES % (AUTO) 5.5 % (20.0-44.0); MEAN CORPUSCULAR HGB CONC 34 g/dl (31.0-36.0); MEAN CORPUSCULAR VOLUME 85 fL (80-96); MONOCYTES # (AUTO) 0.6 /CMM (0.1-1.30); MONOCYTES % (AUTO) 5.5 % (2.0-12.0); NEUTROPHILS # (AUTO) 8.9 /CMM (1.8-8.9); NEUTROPHILS % (AUTO) 87.4 % (43.0-81.0); PLATELET COUNT (AUTO) 159 /CMM (150-450); RED BLOOD CELL COUNT(AUTO) 3.01 MIL/uL (4.5-6.0); WHITE BLOOD COUNT (AUTO) 10.2 K/uL (4.3-11.0)
[2019-10-23 04:45] LABS: CALCIUM, SERUM 7.2 mg/dL (8.5-10.1); CARBON DIOXIDE 29 mmol/L (21-32); CHLORIDE 107 mmol/L (98-107); CREATININE 1.5 mg/dL (0.6-1.3); GLUCOSE 85 mg/dL (74-106); MAGNESIUM 1.6 mg/dL (1.8-2.4); PHOSPHORUS 3.9 mg/dL (2.5-4.9); POTASSIUM 3.3 mmol/L (3.5-5.1); SODIUM SERUM 143 mmol/L (136-145); UREA NITROGEN, BLOOD 50 mg/dL (7-18)
--- NOTE | 2019-10-23 07:20 | NUR ---
RN Note Pt calm and quiet, resting comfortable throughout the night. Pt NSR and Breathing even & regular on ETT via Vent, timely oral care provided. Skin care provided and wound picture taken. Pt urinating sufficient clear yellow urine. Pt aphasic and cooperative to care. Pt is awaiting for Tracheostomy procedure this AM. Care is endorsed to an incoming LACE PINNER.
--- NOTE | 2019-10-23 08:27 | NUR ---
ICU/RN AM SHIFT INITIAL NOTES RECEIVED PT AWAKE, OPEN EYES, UNABLE TO FOLLOW COMMANDS, NO ACUTE DISTRESS OR GRIMACING NOTED. PT ON VENTILATOR, SIMV MODE, RATES SET PRESCRIBED, ETT 7.5 ON LIP. SATURATING @ 97%, RESPIRATIONS EVEN & UNLABORED, LUNG SOUNDS CLEAR, SUCTIONED FOR AIRWAY CLEARANCE. ON TELE MONITORING, HR 68. PICC LINE PATNET WITH NO S/S OF INFECTION, ON GOING INFUSION OF D5W @ 100CC/HR. GT MEDICATIONS AND FEEDING HELD FOR SCHEDULED TRACHEOSTOMY THIS MORNING. WEISS CATHETER DRAINING BY GRAVITY, NOTED CLEAR YELLOW URINE OUTPUT. PT IS COMFORTABLE. CL WITHIN REACHED, SAFETY MAINTAINED AND ISOLATION OBSERVED.
[2019-10-23] MEDS ORDERED: POTASSIUM CHLORIDE 20 MEQ POWDER PACKET NG SCH (08:30)
[2019-10-23] MEDS: Magnesium 1GM/D5W 100ML PREMIX 100 ML IV SCH ×2 (08:40→09:57)
[2019-10-23] MEDS: AMIODARONE HCL 200 MG TABLET GT SCH (08:40)
[2019-10-23] MEDS: HYDROCORTISONE SOD SUCCINATE 100 MG/2 ML VIAL IV SCH (08:40)
[2019-10-23] MEDS: PANTOPRAZOLE 40 MG/PACK PACK NG SCH (08:42)
[2019-10-23] MEDS: MUPIROCIN OINT 2% 22 GM TUBE SCH ×2 (08:42→21:00)
[2019-10-23] MEDS: LEVETIRACETAM SOL (5 ML) 100 MG/ML UDC GT SCH ×2 (08:42→22:15)
[2019-10-23] MEDS: SILVER SULFADIAZINE CREAM 25 GM TUBE TP SCH (08:43)
[2019-10-23] MEDS: CLOTRIMAZOLE 1% 15 GM TUBE TP SCH ×2 (08:43→16:43)
[2019-10-23] MEDS: NITROGLYCERIN 30 GM TUBE TP SCH ×2 (08:45→21:00)
[2019-10-23] MEDS: POTASSIUM CL. PREMIX PERIPHER. 50 ML IV SCH ×4 (11:06→14:57)
--- NOTE | 2019-10-23 12:00 | NUR ---
ICU/RN NOON ROUNDS NO CHANGE OF CONDITION. PT TURNED AND REPOSITIONED.
--- NOTE | 2019-10-23 15:45 | NUR ---
ICU/RN OFF TO OR - TRACHEOSTOMY PT LEFT ICU UNIT FOR TRACH PLACEMENT.
--- NOTE | 2019-10-23 16:30 | NUR ---
RT PT RECEIVED INTUBATED VIA 7.5 ETT AND ON [facility] VENT W CHARTED SETTINGS. PT WAS TRACH'D VIA SIZE 8 SHILEY AND PLACED BACK ON VENT. VENT IS PLUGGED INTO RED OUTLET W BMV AND SPARE TRACH AT HOB. ALARMS ARE SET AND AUDIBLE. PT IS STABLE. NO RESPIRATORY DISTRESS NOTED T/O SHIFT. Addendum: 10/23/19 at 1737 by VIK CELAYA RT Amended: Links added.
--- NOTE | 2019-10-23 16:39 | NUR ---
ICU/RN STATUS POST - TRACHEOSTOMY PT RETURNED TO ICU POST TRACHEOSTOMY. PLACED A SHILEY #8, VENT SETTING CHANGE TO AC MODE OF 12. GT FEEDING RESUMED. ON GOING MONITORING.
[2019-10-23] MEDS: JEVITY 1.2 CAL 1,000 ML BOTTLE GT PRN (16:41)
--- NOTE | 2019-10-23 19:21 | NUR ---
ICU/RN AM SHIFT END NOTES ALL NEEDS MET. NO ACUTE CHANGE OF CONDITION NOTED DURING THE SHIFT. PT TOLERATED, TRACH PLACEMENT ON AC MODE. PT ENDORSED TO PM NURSE TO CONTINUE CARE. CL WITHIN REACHED, SAFETY MAINTAINED AND ISOLATION OBSERVED.
[2019-10-24] VITALS (13 sets, daily range): BP systolic 108–166; BP diastolic 50–112
[2019-10-24 04:47] LABS: BASOPHILS # (AUTO) 0.1 /CMM (0.0-0.2); BASOPHILS % (AUTO) 0.7 % (0.0-2.0); EOSINOPHILS % (AUTO) 0.8 % (0.0-6.0); HEMATOCRIT 29 % (39-51); HEMOGLOBIN 9.5 g/dL (13.5-17.5); LYMPHOCYTES # (AUTO) 0.7 /CMM (0.8-4.8); LYMPHOCYTES % (AUTO) 6.5 % (20.0-44.0); MEAN CORPUSCULAR HGB CONC 33 g/dl (31.0-36.0); MEAN CORPUSCULAR VOLUME 85 fL (80-96); MONOCYTES # (AUTO) 0.7 /CMM (0.1-1.30); MONOCYTES % (AUTO) 6.1 % (2.0-12.0); NEUTROPHILS # (AUTO) 9.2 /CMM (1.8-8.9); NEUTROPHILS % (AUTO) 85.9 % (43.0-81.0); PLATELET COUNT (AUTO) 189 /CMM (150-450); RED BLOOD CELL COUNT(AUTO) 3.34 MIL/uL (4.5-6.0); WHITE BLOOD COUNT (AUTO) 10.7 K/uL (4.3-11.0)
--- NOTE | 2019-10-24 05:49 | NUR ---
RN NOTES RESTING COMFORTABLY IN BED WITH NO DISTRESS NOTED. BREATHING EVEN AND UNLABORED. S/P VENT PLACEMENT 10/23/19. VENT SETTING WELL TOLERATED. SUCTIONED MODIRATE AMOUNT OF SEMI LOOSE REDDISH SECRETION. VITAL SIGNS WNL. NO PHYSICAL MANIFESTATION OF PAIN OR DISCOMFORT. VITAL SIGNS REMAINS STABLE. TURNED AND REPOSITIONED EVERY TWO HOURS WITH LIMBS IN FUNCTIONAL ALIGNMENT. NOTED WITH SLIGHT EYE TRACKING. KEPT CLEAN AND DRY. WILL ENDORSE TO NEXT SHIFT FOR CONTINUITY OF CARE.
--- NOTE | 2019-10-24 07:58 | NUR ---
ICU/RN AM SHIFT INITIAL NOTES RECEIVED PT ASLEEP, EASILY AWAKEN, OPEN EYES, TRACKS. NO ACUTE DISTRESS OR GRIMACING NOTED. NEWLY PLACED TRACH TUBE (YESTERDAY) SITE CLEAN WITH NOTED MINIMAL BLEEDING. ON AC MODE, RATES SET PRESCRIBED. SATURATING @ 98%, RESPIRATIONS EVEN & UNLABORED, LUNG SOUNDS CLEAR, SUCTIONED FOR AIRWAY CLEARANCE. ON TELE MONITORING, HR 93. PICC LINE PATENT WITH NO S/S OF INFECTION, ON GOING INFUSION OF D5W @ 100CC/HR. GTF ON GOING @ 70CC/HR, NO GASTRIC RESIDUAL NOTED. WEISS CATHETER INTACT DRAINING BY GRAVITY, NOTED CLEAR YELLOW URINE OUTPUT. PT IS COMFORTABLE. CL WITHIN REACHED, SAFETY MAINTAINED AND ISOLATION OBSERVED.
--- NOTE | 2019-10-24 10:00 | NUR ---
PASSENGER LOCOMOTIVE ENGINEER NOTES RECEIVED PT FROM [facility] PARTY PLAN SALES AGENT, PT IN AWAKE, NON VERBAL AT THIS TIME, NOT IN DISTRESS, KEPT WARM AND COMFORTABLE IN BED.
--- NOTE | 2019-10-24 10:02 | NUR ---
ICU/JOY LOADER OF CARE PT TRANSFERRED TO TELE1, ROOM 119#1 IN STABLE CONDITION. PT ENDORSED TO NURSE LUDWIG TO CONTINUE CARE.
[2019-10-24] MEDS: LEVETIRACETAM SOL (5 ML) 100 MG/ML UDC GT SCH ×2 (10:06→21:47)
[2019-10-24] MEDS: AMIODARONE HCL 200 MG TABLET GT SCH (10:07)
[2019-10-24] MEDS: PANTOPRAZOLE 40 MG/PACK PACK NG SCH (10:07)
[2019-10-24] MEDS: HYDROCORTISONE SOD SUCCINATE 100 MG/2 ML VIAL IV SCH (10:07)
[2019-10-24] MEDS: MUPIROCIN OINT 2% 22 GM TUBE SCH ×2 (10:08→21:47)
[2019-10-24] MEDS: SILVER SULFADIAZINE CREAM 25 GM TUBE TP SCH (10:08)
[2019-10-24] MEDS: NITROGLYCERIN 30 GM TUBE TP SCH ×2 (10:08→21:52)
[2019-10-24] MEDS: CLOTRIMAZOLE 1% 15 GM TUBE TP SCH ×2 (10:08→16:18)
[2019-10-24] MEDS: JEVITY 1.2 CAL 1,000 ML BOTTLE GT PRN (12:15)
--- NOTE | 2019-10-24 13:00 | NUR ---
ASPHALT PAVING SUPERINTENDENT NOTES PT IN BED, RESTING, NO SIGN OF PAIN OR DISTRESS, GT FEEDING INFUSING WELL, TOLERATING WELL, KEPT WARM AND COMFORTABLE, PERINEAL CARE PROVIDED NEEDED.
[2019-10-24] MEDS: IV D5W 1,000 ML IV PRN (15:34)
--- NOTE | 2019-10-24 17:56 | NUR ---
PARCEL POST CLERK NOTES PT IN BED, ASLEEP, EASY TO AROUSE, ABLE TO OPEN EYES AND TRACK, NO SIGN OF PAIN OR DISTRESS, GT FEEDING INFUSING WELL AND TOLERATING WELL, F/C DRAINING WELL WITH CLEAR, YELLOW URINE, PM CARE PROVIDED, SKIN TREATMENTS DONE, TURNED AND REPOSITIONED Q2 HOURS, KEPT CLEAN, DRY AND COMFORTABLE.
--- NOTE | 2019-10-24 19:35 | NUR ---
RN NOTES, RECEIVED PATIENT ASLEEP, OPEN EYES, NONVERBAL, ON MECHANICAL VENTILATOR, NO SOB/ACUTE DISTRESS NOTED, NEW TRACH IN PLACED 10/23/18, SITE CLEAN WITH NOTED MINIMAL BLEEDING, MICHELE PICC LINE PATENT AND INTACT, WITH NO S/S OF INFECTION, MICHELE PICC LINE, OF D5W @ 100CC/HR, GTF ON GOING MINIMAL RESIDUAL NOTED, WEISS CATHETER PATENT AND INTACT, CLEAR YELLOW URINE NOTED, CL WITHIN REACHED, SAFETY MAINTAINED AND ISOLATION OBSERVED, BED LOCKED AND IN LOW POSITION, BED S/R OF BED UP, WILL CONTINUE TO MONITOR CLOSELY.
--- NOTE | 2019-10-24 20:27 | NUR ---
RT NOTE Pt rec'd trached on [facility] vent on AC mode. No resp distress or sob noted. Pt sx'd for thick mod amt of pale yellow secretions. Trach is patent and secured. Alarms are set and audible. Vent plugged into red outlet. Ambu bag bedside. Will continue to monitor. Addendum: 10/24/19 at 2026 by BERNY VILLAGOMEZ RT Amended: Links added.
[2019-10-25] VITALS: BP 140/68
[2019-10-25] MEDS: IV D5W 1,000 ML IV PRN (02:21)
--- NOTE | 2019-10-25 03:35 | NUR ---
RN NOTES, NOTED PATIENT WITH AN EPISODE OF COFFEE GROUND EMESIS, ABOUT 100ML PATIENT PUT ON SIDE POSITION SUCTION PROVIDED, NO CHANGE IN VITAL SIGNS, NO S/S OF SOB/RESPIRATORY DISTRESS, ZOFRAN ADMINISTERED ORDERED, , WILL HOLD GTF FOR NOW, AND WILL CONTINUE TO MONITOR CLOSELY.
[2019-10-25 04:00] VITALS: BP 125/70
--- NOTE | 2019-10-25 07:00 | NUR ---
RN NOTES, NO SIGNIFICANT CHANGE IN CONDITION, X1 ONLY EPISODE OF COFFE GROUND EMESIS, NO MORE EPISODES OF EMESIS AND TOLERATED GTF WELL, VITAL SIGN STABLE, WILL ENDORSE CONTINUITY OF CARE TO ONCOMING NURSE.
[2019-10-25 07:16] LABS: BASOPHILS # (AUTO) 0.1 /CMM (0.0-0.2); BASOPHILS % (AUTO) 0.5 % (0.0-2.0); EOSINOPHILS % (AUTO) 0.2 % (0.0-6.0); HEMATOCRIT 25 % (39-51); HEMOGLOBIN 8.7 g/dL (13.5-17.5); LYMPHOCYTES # (AUTO) 0.5 /CMM (0.8-4.8); LYMPHOCYTES % (AUTO) 4.1 % (20.0-44.0); MEAN CORPUSCULAR HGB CONC 35 g/dl (31.0-36.0); MEAN CORPUSCULAR VOLUME 87 fL (80-96); MONOCYTES # (AUTO) 0.5 /CMM (0.1-1.30); MONOCYTES % (AUTO) 4.1 % (2.0-12.0); NEUTROPHILS # (AUTO) 10.5 /CMM (1.8-8.9); NEUTROPHILS % (AUTO) 91.1 % (43.0-81.0); PLATELET COUNT (AUTO) 186 /CMM (150-450); RED BLOOD CELL COUNT(AUTO) 2.89 MIL/uL (4.5-6.0); WHITE BLOOD COUNT (AUTO) 11.5 K/uL (4.3-11.0)
[2019-10-25 07:45] LABS: ALANINE AMINOTRANSFERASE 19 U/L (12-78); ALKALINE PHOSPHATASE 66 U/L (46-116); ASPARTATE AMINOTRANSFERASE 19 U/L (15-37); BILIRUBIN,TOTAL 0.4 mg/dL (0.2-1.0); CALCIUM, SERUM 7.3 mg/dL (8.5-10.1); CARBON DIOXIDE 30 mmol/L (21-32); CHLORIDE 101 mmol/L (98-107); CREATININE 1.3 mg/dL (0.6-1.3); GLUCOSE 119 mg/dL (74-106); MAGNESIUM 1.6 mg/dL (1.8-2.4); PHOSPHORUS 3.6 mg/dL (2.5-4.9); POTASSIUM 3.2 mmol/L (3.5-5.1); SODIUM SERUM 138 mmol/L (136-145); TOTAL PROTEIN, SERUM 5.5 g/dL (6.4-8.2); UREA NITROGEN, BLOOD 40 mg/dL (7-18)
[2019-10-25 08:00] VITALS: BP 92/51
[2019-10-25 08:40] LABS: ALBUMIN 1.4 g/dL (3.4-5.0)
[2019-10-25] MEDS: NITROGLYCERIN 30 GM TUBE TP SCH ×2 (09:00→21:31)
[2019-10-25] MEDS: MUPIROCIN OINT 2% 22 GM TUBE SCH ×2 (09:00→21:31)
[2019-10-25] MEDS: AMIODARONE HCL 200 MG TABLET GT SCH (09:13)
[2019-10-25] MEDS: LEVETIRACETAM SOL (5 ML) 100 MG/ML UDC GT SCH ×2 (09:13→21:28)
[2019-10-25] MEDS: HYDROCORTISONE SOD SUCCINATE 100 MG/2 ML VIAL IV SCH (09:17)
[2019-10-25] MEDS: CLOTRIMAZOLE 1% 15 GM TUBE TP SCH ×2 (09:17→16:04)
[2019-10-25] MEDS: PANTOPRAZOLE 40 MG/PACK PACK NG SCH (09:17)
[2019-10-25] MEDS: SILVER SULFADIAZINE CREAM 25 GM TUBE TP SCH (09:18)
[2019-10-25] MEDS ORDERED: POTASSIUM CHLORIDE 20 MEQ POWDER PACKET GT SCH (09:30)
[2019-10-25 09:54] LABS: ABG BASE EXCESS 3.5 mmol/L; ABG OXYGEN SATURATION 96.8 % (92.0-98.5); ABG PCO2 33.9 mmHg (35.0-45.0); ABG PH 7.511 (7.350-7.450); ABG PO2 95.8 mmHg (75.0-100.0); AaDO2 78.3 mmHg; COHb 0.4 % (0.5-1.5); MetHb 0.2 % (0.0-1.5); O2Hb 96.2 % (94.0-97.0); SITE, ABG Right Radial; VENT MODE, BG SIMV 4 +5 PS 15
[2019-10-25 11:37] LABS: BILIRUBIN,DIRECT 0.1 mg/dL (0.0-0.2)
[2019-10-25 12:00] VITALS: BP 119/62
--- NOTE | 2019-10-25 13:30 | NUR ---
alert, ,non--verbal , on ventilator SIMV mode, abg done, normal. Opened eyes on tactile stimuli or when called his name. Noticeable swelling on both upper and lower ext. Gluteal area, lacerations, the site cleansed with NS, oil emulsion applied and covered with mediplex Penile area, skin tear, xeroform applied reached his goal of tube feed , which is 65cc/per hour, so far tolerated well, no N/V noted. Lactic acid this am 0600 2.2, lab drawn again at 11, down to 1.6, AND albumin too low. Attending made aware, dr couch will get replenished with KLOR 40 meq ( K 3.2),via GT, and MgSo4 ivpb when available
[2019-10-25] MEDS: Magnesium 1GM/D5W 100ML PREMIX 100 ML IV SCH ×2 (13:55→16:03)
[2019-10-25 16:00] VITALS: BP 98/54
--- NOTE | 2019-10-25 19:20 | NUR ---
RN NOTES, RECEIVED PATIENT ASLEEP, OPEN EYES, NONVERBAL, ON MECHANICAL VENTILATOR, NO SOB/ACUTE DISTRESS NOTED, S/P TRACH 2 DAYS AGO, SITE CLEAN WITH NOTED MINIMAL BLEEDING, NO ACTIVE BLEEDING NOTED, MICHELE PICC LINE PATENT AND INTACT, WITH NO S/S OF INFECTION, MICHELE PICC LINE, ON D5W @ 100CC/HR, GTF INFUSING, MINIMAL RESIDUAL NOTED, WEISS CATHETER PATENT AND INTACT, CLEAR YELLOW URINE NOTED, CALL LIGHT WITHIN REACHED, SAFETY MAINTAINED AND ISOLATION OBSERVED, BED LOCKED AND IN LOW POSITION, S/R OF BED UP, WILL CONTINUE TO MONITOR CLOSELY.
[2019-10-25 20:00] VITALS: BP 114/61
[2019-10-26] VITALS (7 sets, daily range): BP systolic 116–137; BP diastolic 58–72
[2019-10-26] MEDS: IV D5W 1,000 ML IV PRN ×2 (02:28→19:36)
[2019-10-26 06:47] LABS: BASOPHILS % (AUTO) 0.3 % (0.0-2.0); EOSINOPHILS % (AUTO) 0.8 % (0.0-6.0); HEMATOCRIT 21 % (39-51); HEMOGLOBIN 7.3 g/dL (13.5-17.5); LYMPHOCYTES # (AUTO) 0.5 /CMM (0.8-4.8); LYMPHOCYTES % (AUTO) 6.8 % (20.0-44.0); MEAN CORPUSCULAR HGB CONC 34 g/dl (31.0-36.0); MEAN CORPUSCULAR VOLUME 87 fL (80-96); MONOCYTES # (AUTO) 0.4 /CMM (0.1-1.30); NEUTROPHILS # (AUTO) 6.6 /CMM (1.8-8.9); NEUTROPHILS % (AUTO) 87.1 % (43.0-81.0); PLATELET COUNT (AUTO) 137 /CMM (150-450); RED BLOOD CELL COUNT(AUTO) 2.45 MIL/uL (4.5-6.0); WHITE BLOOD COUNT (AUTO) 7.6 K/uL (4.3-11.0)
[2019-10-26 07:31] LABS: CREATININE 1.1 mg/dL (0.6-1.3); POTASSIUM 3.3 mmol/L (3.5-5.1)
[2019-10-26] MEDS: AMIODARONE HCL 200 MG TABLET GT SCH (09:00)
[2019-10-26] MEDS: LEVETIRACETAM SOL (5 ML) 100 MG/ML UDC GT SCH ×2 (09:01→22:52)
[2019-10-26] MEDS: PANTOPRAZOLE 40 MG/PACK PACK NG SCH (09:02)
[2019-10-26] MEDS: HYDROCORTISONE SOD SUCCINATE 100 MG/2 ML VIAL IV SCH (09:02)
[2019-10-26] MEDS: MUPIROCIN OINT 2% 22 GM TUBE SCH ×2 (09:02→22:52)
[2019-10-26] MEDS: SILVER SULFADIAZINE CREAM 25 GM TUBE TP SCH (09:03)
[2019-10-26] MEDS: CLOTRIMAZOLE 1% 15 GM TUBE TP SCH ×2 (09:03→19:26)
[2019-10-26] MEDS: NITROGLYCERIN 30 GM TUBE TP SCH ×2 (09:04→23:04)
[2019-10-26] MEDS: JEVITY 1.2 CAL 1,000 ML BOTTLE GT PRN (09:12)
[2019-10-26] MEDS ORDERED: POTASSIUM CHLORIDE 20 MEQ POWDER PACKET GT SCH (12:00)
--- NOTE | 2019-10-26 12:20 | NUR ---
RN NOTES, ENDORSED PATIENT TO FRANCO ARMENTA FOR CONTINUATION OF CARE.
--- NOTE | 2019-10-26 19:30 | NUR ---
WHISKEY REGAUGER OPENING NOTE PATIENT IN BED WITH NO SIGN OF ANY DISTRESS. TOLERATING VENT WITH NO SIGN OF ANY SOB. PATIENT IS ON GTUBE OF JEVITY AT 65ML AN HR WILL NO RESIDUAL. HAS AN IV ACCESS ON THE MICHELE PICC LINE WITH D5W @ 100ML.HR. ON THE MONITOR SHOWING SINUS RHYTHM WITH HR IN THE80';S. WILL CONTINUE TO MONITOR PATIENT FOR LUIS FERNANDO.
--- NOTE | 2019-10-26 22:00 | NUR ---
DUSTER TENDER NOTE NITROGLYCERIN 1GM NOT GIVEN. INCORRECT DOSE.
[2019-10-26] MEDS ORDERED: NITROGLYCERIN PACKET 1 GM PACKET ONE (23:00)
[2019-10-27] VITALS: BP 137/72
[2019-10-27 00:05] VITALS: BP 124/76
[2019-10-27] MEDS: JEVITY 1.2 CAL 1,000 ML BOTTLE GT PRN (02:16)
[2019-10-27 04:00] VITALS: BP 136/72
[2019-10-27 06:31] LABS: BASOPHILS % (AUTO) 0.3 % (0.0-2.0); EOSINOPHILS % (AUTO) 0.6 % (0.0-6.0); HEMATOCRIT 27 % (39-51); HEMOGLOBIN 9.3 g/dL (13.5-17.5); LYMPHOCYTES # (AUTO) 0.5 /CMM (0.8-4.8); LYMPHOCYTES % (AUTO) 5.4 % (20.0-44.0); MEAN CORPUSCULAR HGB CONC 34 g/dl (31.0-36.0); MEAN CORPUSCULAR VOLUME 86 fL (80-96); MONOCYTES # (AUTO) 0.4 /CMM (0.1-1.30); MONOCYTES % (AUTO) 4.2 % (2.0-12.0); NEUTROPHILS # (AUTO) 7.9 /CMM (1.8-8.9); NEUTROPHILS % (AUTO) 89.5 % (43.0-81.0); PLATELET COUNT (AUTO) 168 /CMM (150-450); RED BLOOD CELL COUNT(AUTO) 3.19 MIL/uL (4.5-6.0); WHITE BLOOD COUNT (AUTO) 8.8 K/uL (4.3-11.0)
[2019-10-27 06:39] LABS: CALCIUM, SERUM 7.6 mg/dL (8.5-10.1); CREATININE 1.1 mg/dL (0.6-1.3); POTASSIUM 3.2 mmol/L (3.5-5.1)
--- NOTE | 2019-10-27 07:30 | NUR ---
TOWEL FOLDER OPENING NOTES RECEIVED PATIENT IN STABLE CONDITION. NO SIGNS OF ACUTE DISTRESS NOTED. ON MECHANICAL VENTILATOR WITH SETTINGS TOLERATING WELL. NO SIGNS OF RESPIRATORY DISTRESS NOTED. G TUBE FEEDING RUNNING AT 65MLS/HR, NO RESIDUAL NOTED. INCREASED THE RATE TO 7OMLS WHICH IS THE GOAL. WILL MONITOR HOW THE PATIENT TOLERATES IT. ON TELE MONITOR WITH SINUS RHYTHM. SAFETY MAINTAINED, CALL LIGHT WITHIN REACH, WILL CONTINUE TO MONITOR.
--- NOTE | 2019-10-27 07:30 | NUR ---
TRAVEL REGISTERED NURSE ONCOLOGY CLOSING NOTE PATIENT IN BED WITH NO SIGN OF ANY DISTRESS. PATIENT SEEMS TO BE TOLERATING THE VENT. ON THE MONITOR PATIENT IS SHOWING SR HR IN THE 80'S. TOLERATING GTUBE FEEDINGS AT 65CC/HR NO RESIDUAL. ALL SAFETY PRECAUTIONS APPLIED. ENDORSED PATIENT TO MORNING SHIFT NURSE FOR LUIS FERNANDO.
[2019-10-27 08:00] VITALS: BP 124/68
[2019-10-27] MEDS: LEVETIRACETAM SOL (5 ML) 100 MG/ML UDC GT SCH (09:02)
[2019-10-27 09:03] VITALS: BP 124/68
[2019-10-27] MEDS: AMIODARONE HCL 200 MG TABLET GT SCH (09:03)
[2019-10-27] MEDS: PANTOPRAZOLE 40 MG/PACK PACK NG SCH (09:04)
[2019-10-27] MEDS: HYDROCORTISONE SOD SUCCINATE 100 MG/2 ML VIAL IV SCH (09:04)
[2019-10-27] MEDS: MUPIROCIN OINT 2% 22 GM TUBE SCH (09:20)
[2019-10-27] MEDS: SILVER SULFADIAZINE CREAM 25 GM TUBE TP SCH (09:21)
[2019-10-27] MEDS: CLOTRIMAZOLE 1% 15 GM TUBE TP SCH (09:22)
--- NOTE | 2019-10-27 10:00 | NUR ---
NITROGLYCERIN OINTMENT WAS NOT ADMINISTERED TO THE PATIENT DUE TO NOT BEING AVAILABLE. NOTIFIED THE PHARMACY WILL BRING A NEW PACK.
[2019-10-27] MEDS ORDERED: POTASSIUM CHLORIDE 20 MEQ POWDER PACKET GT SCH (12:30)
--- NOTE | 2019-10-27 13:30 | NUR ---
PATIENT IS READY FOR DISCHARGE. GAVE REPORT TO THE SUBACUTE NURSE TERRELL. PATIENT IS IN STABLE CONDITION. NO ACUTE CHANGES DURING MY SHIFT. ENDORSED TO TERRELL TO CONTINUE CARE. DISCHARGE PAPERWORK COMPLETE, NEW PICTURES ARE TAKEN AND PLACED IN THE CHART. PATIENT UNABLE TO SIGN PAPERWORK, SIGNED BY ME AND THE CHARGE NURSE.
== END 2019-10-27 14:08 | disposition short-term general hospital (02) | DRG 4 ==
LOC: ER 00:05 → ICU 04:04 → TELE-TD 10-24 08:41 → TELE1 10-24 10:02
PROVIDERS: ATTEND Family Medicine
PROC: 5A1955Z Respiratory Ventilation, Greater than 96 Consecutive Hours (ICD-10-PCS; 2019-10-08)
PROC: 0BH17EZ Insertion of Endotracheal Airway into Trachea, Via Natural or Artificial Opening (ICD-10-PCS; 2019-10-08)
PROC: 02HV33Z Insertion of Infusion Device into Superior Vena Cava, Percutaneous Approach (ICD-10-PCS; 2019-10-08)
PROC: B548ZZA Ultrasonography of Superior Vena Cava, Guidance (ICD-10-PCS; 2019-10-08)
PROC: 30233N1 Transfusion of Nonautologous Red Blood Cells into Peripheral Vein, Percutaneous Approach (ICD-10-PCS; 2019-10-18)
PROC: 0B110F4 Bypass Trachea to Cutaneous with Tracheostomy Device, Open Approach (ICD-10-PCS; principal; 2019-10-23)
DX: A41.9 Sepsis, unspecified organism (principal); J96.01 Acute respiratory failure with hypoxia; N17.0 Acute kidney failure with tubular necrosis; R65.21 Severe sepsis with septic shock; E43 Unspecified severe protein-calorie malnutrition; G92 Toxic encephalopathy; J69.0 Pneumonitis due to inhalation of food and vomit; J96.02 Acute respiratory failure with hypercapnia; I21.4 Non-ST elevation (NSTEMI) myocardial infarction; E87.2 Acidosis; J84.9 Interstitial pulmonary disease, unspecified; E87.1 Hypo-osmolality and hyponatremia; N13.8 Other obstructive and reflux uropathy; E83.42 Hypomagnesemia; F03.90 Unspecified dementia, unspecified severity, without behavioral disturbance, psychotic disturbance, mood disturbance, and anxiety; I12.9 Hypertensive chronic kidney disease with stage 1 through stage 4 chronic kidney disease, or unspecified chronic kidney disease; I48.91 Unspecified atrial fibrillation; I25.10 Atherosclerotic heart disease of native coronary artery without angina pectoris; L30.4 Erythema intertrigo; N18.9 Chronic kidney disease, unspecified; N40.1 Benign prostatic hyperplasia with lower urinary tract symptoms; Z85.46 Personal history of malignant neoplasm of prostate; Z93.1 Gastrostomy status; K21.9 Gastro-esophageal reflux disease without esophagitis; D64.9 Anemia, unspecified; G40.909 Epilepsy, unspecified, not intractable, without status epilepticus; Z89.021 Acquired absence of right finger(s); E88.09 Other disorders of plasma-protein metabolism, not elsewhere classified; M62.50 Muscle wasting and atrophy, not elsewhere classified, unspecified site; Z68.26 Body mass index [BMI] 26.0-26.9, adult; G47.419 Narcolepsy without cataplexy; K44.9 Diaphragmatic hernia without obstruction or gangrene; L89.156 Pressure-induced deep tissue damage of sacral region; S31.20XA Unspecified open wound of penis, initial encounter; X58.XXXA Exposure to other specified factors, initial encounter; Y93.9 Activity, unspecified; Y92.129 Unspecified place in nursing home as the place of occurrence of the external cause; Z22.322 Carrier or suspected carrier of Methicillin resistant Staphylococcus aureus
CPT/HCPCS: 31720; 36415; 36600; 71045-TC; 76770-TC; 80048-TC; 80053-TC; 80061-TC; 80076-TC; 80202-TC; 81000-TC; 82248-TC; 82272-TC; 82533; 82550-TC; 82570-TC; 82728-TC; 82803-TC; 83540-TC; 83605-TC; 83690-TC; 83735-TC; 83880; 83970; 84100-TC; 84155; 84155-TC; 84165; 84300-TC; 84443-TC; 84478-TC; 84484-TC; 85025-TC; 85027-TC; 85730-TC; 86850-TC; 86921-TC; 87040-TC; 87070-TC; 87081-TC; 87186-TC; 94002-TC; 94003-TC; 94760-TC; 94762-TC; 94799-TC; 99082-TC; A4216; A6253; A6403; A6407; A7526; C1751; C9113; G0378; J0690; J0696; J1644; J1720; J1953; J2060; J2185; J2270; J2405; J2543; J3370; J3475; J3480; J3490; J7030; J7050; J7060; J7070; P9016-BL

== ENCOUNTER 2019-10-27 10:04 | Inpatient (IN) | payer MEDICARE, OTHER ==
[~2019-10-27] VITALS: Ht 170.2 cm; Wt 72.6 kg
[~2019-10-27 10:04] MED LIST changes: +AMIN30LI2 GT; +AMIO200T4 GT; -AMIO200T4 PO; +ASCO-352 GT; +ATOR20TA GT; -ATOR20TA PO; +LEVE100S GT; -LEVE500T20 PO; +METO50TA16 GT; -METO50TA16 PO; +MULT-213 GT; +OMEP20TA5 GT; -OMEP20TA5 PO
--- NOTE | 2019-10-27 14:30 | NUR ---
Resident admitted to subacute from [facility] with the following diagnosis: respiratory failure with tracheostomy ventilator dependent, seizure disorder, chronic encephalopathy, atrial fibrillation, GERD, BPH with history of Prostate CA, S/P septic shock. Body check done with sacral DTI in evolution, groin/perineum redness and penile wound. Patient obtunded, respond to painful stimulation, non verbal and not able to follow command at this time. GT feeding started, Jevity 1.2 at 70 cc/hr. According to lpn cma, they are following the patient from acute hospital and the goal in to increase GT feeding to 80 cc/hr. Patient under the services of helene Morrow MD to verify admission orders. Awaiting for his return call.
--- NOTE | 2019-10-27 15:25 | NUR ---
Contacting Responsible Republican: Grey Stock Recorder called the patient's responsible constitution party/son, Aba Flannery [phone] to schedule a time to complete intake paperwork. However, the call went to voicemail and SW left a detailed messaged with call-back number. SW is not available on weekends and will consequently, follow up on Wednesday, October,.
--- NOTE | 2019-10-27 16:00 | NUR ---
Made a follow-up call with Dr. Pierre which he said he will be in shortly to verify admission orders.
--- NOTE | 2019-10-27 16:26 | NUR ---
RT NOTE: RECEIVED PT ON ORDERED MD VENT SETTINGS RR 4 VT 450 PEEP + 5 @ 30% FIO2. PT HAS SHILEY SIZE 6 CUFFED TRACH. NO ACUTE RESPIRATORY DISTRESS NOTED UPON ADMISSION. RESPIRATORY ASSESSMENT DONE. TRACH CHECKED SECURE PATENT. SUTURES/REDNESS NOTED AROUND STOMA. RN AWARE. RESPIRATORY EQUIPMENT. PLACED SPARE TRACH AND AMBU BAG @ BEDSIDE. TRACH CARE DONE. ALARMS SET ON AND AUDIBLE.
--- NOTE | 2019-10-27 18:00 | NUR ---
Seen and examined by Dr. Pierre reviewed TMS and lab result from previous hospitalization. According to Dr. Pierre to follow current medication list from acute hospital with the exception of IVF and Solucortef IV which he discontinue. Orders faxed to [facility] and [facility] pharmacy. Resident' son Aba Flannery notified of patient's admission. Asked Mr. Flannery what is the patient's usual level of consciousness, he said that he is alert and verbally responsive. Her added that patient recognizes him and his family. Informed patient's son that patient is not verbally responsive upon assessment, he has a trach and on ventilator. Informed family that at this time patient is stable and will get to know the patient better, such as his responsiveness after a couple of days. Appreciated the call. MD Fernandes also notified of new admission, said patient can have a PRN Albuterol, no need for routine breathing treatment.
[2019-10-27] MEDS ORDERED: ACETAMINOPHEN 650 MG/20 ML UDC- SA PATIENTS-FEVER ONLY GT PRN (19:00)
[2019-10-27] MEDS ORDERED: ALBUTEROL FS 2.5 MG/0.5 ML VIAL.NEB NEB PRN (19:00)
[2019-10-27] MEDS ORDERED: ONDANSETRON 4 MG TAB.RAPDIS GT PRN (19:00)
[2019-10-27 19:06] VITALS: BP 142/68
[2019-10-27 19:56] VITALS: BP 148/61
[2019-10-27] MEDS: MUPIROCIN OINT 2% 22 GM TUBE SCH (21:00)
--- NOTE | 2019-10-27 21:00 | NUR ---
Obtained orders for SCD for DVT prophylaxis,Bilateral heel dryness -apply Vitamin A&D ointment q shift x 30 days,BUE and BLE edema elevate with pillows as pt condition permits.Will carried out and will continue to monitor.
[2019-10-27 21:05] VITALS: BP 125/56
[2019-10-27] MEDS: LEVETIRACETAM SOL (5 ML) 100 MG/ML UDC GT SCH (21:43)
[2019-10-27] MEDS: CLOTRIMAZOLE 1% 15 GM TUBE TP SCH (21:44)
[2019-10-27] MEDS: TUBERCULIN,PURIF.PROT.DERIV. 5 TU/0.1 ML VIAL ID SCH (22:00)
[2019-10-28] VITALS (9 sets, daily range): BP systolic 113–146; BP diastolic 59–69
[2019-10-28] MEDS: JEVITY 1.2 CAL 1,000 ML BOTTLE GT PRN ×2 (00:05→18:15)
--- NOTE | 2019-10-28 04:30 | NUR ---
Temp 99.7, facial grimacing noted,cooling measures and repositioned comfortably. Tylenol given via gt for discomfort will continue to monitor.
[2019-10-28] MEDS: OMEPRAZOLE 20 MG CAPSULE.DR GT SCH (05:45)
[2019-10-28] MEDS: ACETAMINOPHEN 650 MG/20 ML UDC- SA PATIENTS-PAIN ONLY GT PRN (05:47)
[2019-10-28] MEDS: AMIODARONE HCL 200 MG TABLET GT SCH (08:47)
[2019-10-28] MEDS: LEVETIRACETAM SOL (5 ML) 100 MG/ML UDC GT SCH ×2 (08:47→21:21)
[2019-10-28] MEDS: CLOTRIMAZOLE 1% 15 GM TUBE TP SCH ×2 (09:00→21:21)
[2019-10-28] MEDS: TUBERCULIN,PURIF.PROT.DERIV. 5 TU/0.1 ML VIAL ID SCH (09:00)
[2019-10-28] MEDS: MUPIROCIN OINT 2% 22 GM TUBE SCH ×2 (09:00→21:21)
[2019-10-28] MEDS: VITAMINS A AND D 56.7 GM TUBE TP SCH ×2 (09:00→21:21)
[2019-10-28] MEDS: Z GUARD REMEDY 4 OZ OINT TP SCH ×2 (09:00→21:21)
--- NOTE | 2019-10-28 09:00 | NUR ---
PPD not administered due to administered by LEADLIGHTER on 10/27/19 4810.
--- NOTE | 2019-10-28 09:40 | NUR ---
Dr. Fernandes came and examined patient, made him aware that patient had low grade fever early this morning, latest temp at this time 98.3. Dr. Fernandes also spoke to RT (Desmond) regarding patient placed on SIMV, per RT Patient unable to tolerate it last night so he was put back to AC. Dr. Fernandes ordered ABG and other labs, CBC on wednesday and BMP, Mg, phosphorus loki in am. Per RT Dr. Fernandes verbalized to keep pt on AC at this time. All new orders noted and carried out. Patient closely monitored.
[2019-10-28] MEDS: ENOXAPARIN SODIUM 40 MG/0.4 ML DISP.SYRIN SQ SCH (19:03)
--- NOTE | 2019-10-28 20:10 | NUR ---
PT RECEIVED TRACHED ON [facility] VENT ON CHARTED SETTINGS. NO SIGNS OF RESP DISTRESS/SOB NOTED AT THIS TIME. AIRWAY PATENT AND SECURED. ICT SUPPORT AND TEST ENGINEERS DONE. PT SUCTIONED. HHN TREATMENT GIVEN. NO ADVERSE REACTIONS NOTED. ALARMS SET AND AUDIBLE. AMBUBAG AND SPARE TRACH PRESENT. VENT CONNECTED TO RED OUTLET. WILL CONT TO MONITOR. Addendum: 10/28/19 at 2011 by BENIGNO RAMIREZ RT Amended: Links added.
[2019-10-29] VITALS (7 sets, daily range): BP systolic 134–150; BP diastolic 67–77
[2019-10-29] MEDS: OMEPRAZOLE 20 MG CAPSULE.DR GT SCH (05:38)
[2019-10-29 07:50] LABS: CALCIUM, SERUM 7.5 mg/dL (8.5-10.1); MAGNESIUM 1.4 mg/dL (1.8-2.4); PHOSPHORUS 2.8 mg/dL (2.5-4.9); POTASSIUM 3.2 mmol/L (3.5-5.1)
[2019-10-29] MEDS: AMIODARONE HCL 200 MG TABLET GT SCH (08:54)
[2019-10-29] MEDS: LEVETIRACETAM SOL (5 ML) 100 MG/ML UDC GT SCH ×2 (08:54→21:03)
[2019-10-29] MEDS: ENOXAPARIN SODIUM 40 MG/0.4 ML DISP.SYRIN SQ SCH (08:56)
[2019-10-29] MEDS: MUPIROCIN OINT 2% 22 GM TUBE SCH ×2 (08:56→21:03)
[2019-10-29] MEDS: CLOTRIMAZOLE 1% 15 GM TUBE TP SCH ×2 (08:57→21:03)
[2019-10-29] MEDS: VITAMINS A AND D 56.7 GM TUBE TP SCH ×2 (08:57→21:04)
[2019-10-29] MEDS: Z GUARD REMEDY 4 OZ OINT TP SCH ×2 (08:57→21:03)
[2019-10-29] MEDS: ACETAMINOPHEN 650 MG/20 ML UDC- SA PATIENTS-PAIN ONLY GT PRN (08:58)
--- NOTE | 2019-10-29 09:20 | NUR ---
Relayed lab results to Dr Fernandes. Received order to give KCL 40 mEq GT x 1, Magnesium sulfate 2 gm in 100 cc D5W IV over 4 hours x 1, add Albumin to today's labs and to call him if greater than 3.
--- NOTE | 2019-10-29 09:45 | NUR ---
Relayed Albumin level 1.[address] Fernandes.
[2019-10-29] MEDS ORDERED: POTASSIUM CHLORIDE 20 MEQ POWDER PACKET GT ONE (10:30)
[2019-10-29] MEDS: JEVITY 1.2 CAL 1,000 ML BOTTLE GT PRN (11:00)
[2019-10-29] MEDS: Magnesium 1GM/D5W 100ML PREMIX 100 ML IV SCH ×2 (11:03→11:30)
[2019-10-30] MEDS: OMEPRAZOLE 20 MG CAPSULE.DR GT SCH (05:45)
[2019-10-30 07:03] LABS: BASOPHILS % (AUTO) 0.2 % (0.0-2.0); EOSINOPHILS % (AUTO) 1.3 % (0.0-6.0); HEMATOCRIT 26 % (39-51); HEMOGLOBIN 8.8 g/dL (13.5-17.5); LYMPHOCYTES # (AUTO) 0.3 /CMM (0.8-4.8); LYMPHOCYTES % (AUTO) 5.6 % (20.0-44.0); MEAN CORPUSCULAR HGB CONC 34 g/dl (31.0-36.0); MEAN CORPUSCULAR VOLUME 84 fL (80-96); MONOCYTES # (AUTO) 0.4 /CMM (0.1-1.30); MONOCYTES % (AUTO) 7.4 % (2.0-12.0); NEUTROPHILS # (AUTO) 4.7 /CMM (1.8-8.9); NEUTROPHILS % (AUTO) 85.5 % (43.0-81.0); PLATELET COUNT (AUTO) 244 /CMM (150-450); RED BLOOD CELL COUNT(AUTO) 3.07 MIL/uL (4.5-6.0); WHITE BLOOD COUNT (AUTO) 5.5 K/uL (4.3-11.0)
[2019-10-30 07:42] VITALS: BP 112/53
[2019-10-30] MEDS: AMIODARONE HCL 200 MG TABLET GT SCH (09:00)
[2019-10-30] MEDS: ENOXAPARIN SODIUM 40 MG/0.4 ML DISP.SYRIN SQ SCH (09:00)
[2019-10-30] MEDS: LEVETIRACETAM SOL (5 ML) 100 MG/ML UDC GT SCH ×2 (09:00→21:22)
[2019-10-30] MEDS: VITAMINS A AND D 56.7 GM TUBE TP SCH ×2 (09:00→21:22)
[2019-10-30] MEDS: CLOTRIMAZOLE 1% 15 GM TUBE TP SCH ×2 (09:00→21:22)
[2019-10-30] MEDS: MUPIROCIN OINT 2% 22 GM TUBE SCH ×2 (09:00→21:22)
[2019-10-30] MEDS: Z GUARD REMEDY 4 OZ OINT TP SCH ×2 (09:00→21:22)
--- NOTE | 2019-10-30 09:20 | NUR ---
Contacting Responsible Green Party: Sap Bods Developer called the patient's Son, Aba Flannery [phone] to discuss scheduling a time to complete intake paperwork. Per Hratch, he received SW voicemail on 10/27/2019 and will come in to [facility] Sub-Acute to complete intake paperwork this afternoon. Noted.
--- NOTE | 2019-10-30 10:00 | NUR ---
Relayed ABG result to Dr Fernandes. He ordered to decrease PSV to 10.
[2019-10-30 10:12] LABS: ABG BASE EXCESS 2.6 mmol/L; ABG OXYGEN SATURATION 95.5 % (92.0-98.5); ABG PCO2 21.3 mmHg (35.0-45.0); ABG PH 7.645 (7.350-7.450); ABG PO2 74.4 mmHg (75.0-100.0); AaDO2 114.5 mmHg; COHb 0.1 % (0.5-1.5); MetHb 0.2 % (0.0-1.5); O2Hb 95.2 % (94.0-97.0); PEEP,BG 5 cm H2O; SITE, ABG Left Radial; VENT MODE, BG SIMV 4 PS15; VT, ABG 450 mL
[2019-10-30] MEDS: JEVITY 1.2 CAL 1,000 ML BOTTLE GT PRN (10:47)
--- NOTE | 2019-10-30 11:45 | NUR ---
Notified Dr Pierre that pt has a temp of 100 F, WBC 5.5. He said to give Tylenol. No new order.
--- NOTE | 2019-10-30 13:15 | NUR ---
Seen by PETER Gonzalez. Received order for urology consult for swollen penis. She also ordered to change sacral DTI in evolution to sacral Stage 3 extending to bilateral buttocks with oil emulsion and Mepilex treatment. Showed her that the flange of the trach is digging into the pt's skin and is causing a wound underneath. She spoke with Dr Harpal Herrmann about it and he said to have the surgeon who placed the trach take a look and maybe loosen it. Informed Dr Pierre. He said Dr Duncan will be in the hospital today and maybe he can see the pt. Called Dr Duncan's office and left a message. Also informed Dr Pierre that PETER Chandra ordered a urology consult. Called Dr Bonds's office and left a message.
--- NOTE | 2019-10-30 15:13 | NUR ---
Family Invitation to IDT: ALONDRA called and invited the pt.s family to attend the next IDT meeting taking place 11/03/2019 between 12:30pm to 1:30pm. The patient s son, Aba Flannery stated him and his siblings would like to participate via conference call. Noted.
[2019-10-30] MEDS ORDERED: HYDROGEL DRESSING 90 GM TUBE TP PRN (18:00)
[2019-10-30 20:15] VITALS: BP 121/60
[2019-10-31] MEDS: OMEPRAZOLE 20 MG CAPSULE.DR GT SCH (06:11)
[2019-10-31 08:03] VITALS: BP 139/60
--- NOTE | 2019-10-31 08:55 | NUR ---
Seen by Dr Fernandes. Showed him pt's trach site, trach flange too tight into pt's skin. Pt has a wound underneath it. Dr Fernandes ordered to DC sutures. He said the nurse can remove the sutures, it does not have to be the surgeon.
[2019-10-31] MEDS: CLOTRIMAZOLE 1% 15 GM TUBE TP SCH ×2 (09:00→21:06)
[2019-10-31] MEDS: VITAMINS A AND D 56.7 GM TUBE TP SCH ×2 (09:00→21:06)
[2019-10-31] MEDS: Z GUARD REMEDY 4 OZ OINT TP SCH ×2 (09:00→21:06)
[2019-10-31] MEDS: AMIODARONE HCL 200 MG TABLET GT SCH (09:00)
[2019-10-31] MEDS ORDERED: HYDROGEL DRESSING 90 GM TUBE TP SCH (09:00)
[2019-10-31] MEDS: LEVETIRACETAM SOL (5 ML) 100 MG/ML UDC GT SCH ×2 (09:45→21:05)
[2019-10-31] MEDS: ENOXAPARIN SODIUM 40 MG/0.4 ML DISP.SYRIN SQ SCH (09:48)
[2019-10-31] MEDS: MUPIROCIN OINT 2% 22 GM TUBE SCH ×2 (09:48→21:05)
--- NOTE | 2019-10-31 10:15 | NUR ---
EMMANUEL Treadwell ordered to DC SCD. Pt on Lovenox.
--- NOTE | 2019-10-31 11:21 | NUR ---
Contacting Responsible Libertarian: Wire Brush Maker called the patient's Son, Aba Flannery [phone] to reschedule completing the intake paperwork as Hratch was not able to do on 10/30/2019. Jayde stated that he is on his way to [facility] now to meet with SW and complete intake paperwork. SW will follow up when Hratch arrives to [facility].
--- NOTE | 2019-10-31 11:43 | NUR ---
WOUND CARE CONSULT WOUND CARE RECEIVED CONSULT FOR NEW ADMIT AND REVIEW TREATMENT. WOUND CARE WILL DEFER CONSULT AND TREATMENT PLANS TO PLASTIC SURGICAL TEAM WHO ARE CURRENTLY FOLLOWING THIS PATIENT. ALL PRESSURE ULCER PREVENTION MEASURES ARE NOTED TO BE IN PLACE. WILL SEE PRN.
--- NOTE | 2019-10-31 13:00 | NUR ---
Pt was seen by PETER Gonzalez. She ordered to DC Hydrogel on the trach wound and apply Mepilex dressing only.
--- NOTE | 2019-10-31 13:34 | NUR ---
Called son, Aba Flannery, in the morning regarding Resident Baseline Care plan for his father Debbie. He explained he was unable to come to [place] yesterday and over the weekend as he was not feeling better but will do today. Discussed baseline care plan with him over the phone, informed PT and OT will still screen resident. Son came shortly after, signed form and copy given. Called [facility] to confirm son's input on Flu and Pneumonia vaccinations, spoke with Dalia: Flu shot given on August 15, 2019 while Pneumonia vaccine given on February 13, 2019.
--- NOTE | 2019-10-31 14:44 | NUR ---
INTAKE PAPERWORK: SW met with the patients Son, Aba Flannery [phone] on 10/31/2019 at 1300 to complete the intake paperwork: (Patient Right's Acknowledgement, Documentation of Preferred Intensity of Care, Conditions of Admission, CDPH Agreement, and Voluntary Prior Express Consent form and An Important Message from Medicare). Aba Flannery stated that the intensity of care provided to the pt. should be Full Code: Maximum Treatment and CPR. SW provided patient's family with a copy of the Bill of Rights, patient information guide and [facility] resident and family guidelines. The admission paperwork was placed into the resident's chart. Vegetable Cutter educated Aba on [facility] [employer] Directive and Conservatorship and provided informational packets for him and the number to [facility] [employer] for him to use if needed. Aba expressed understanding and stated he did not plan to get conservatorship for the time being.
--- NOTE | 2019-10-31 14:55 | NUR ---
Called Dr Bonds for urology consult due to swollen penis and wound in the penis. He said he will see pt. Also called Dr Duncan to have him see pt's trach site. Informed him that pt has a wound underneath the trach flange and sutures were removed today. He said he will see pt.
[2019-10-31] MEDS: JEVITY 1.2 CAL 1,000 ML BOTTLE GT PRN (17:40)
[2019-10-31 20:34] VITALS: BP 133/65
[2019-10-31] MEDS: BACI/NEOM/POLY B OINT PKT 1 UDPKT PACKET TP SCH (21:06)
[2019-11-01] MEDS: OMEPRAZOLE 20 MG CAPSULE.DR GT SCH (05:59)
--- NOTE | 2019-11-01 07:55 | NUR ---
PT RECEIVED TRACHED ON [facility] VENT ON CHARTED SETTINGS. NO SIGNS OF RESP DISTRESS/SOB NOTED AT THIS TIME. AIRWAY PATENT AND SECURED. ELASTIC ATTACHER ZIGZAG DONE. PT SUCTIONED. HHN TREATMENT GIVEN. NO ADVERSE REACTIONS NOTED. ALARMS SET AND AUDIBLE. AMBUBAG AND SPARE TRACH PRESENT. VENT CONNECTED TO RED OUTLET. WILL CONT TO MONITOR. Addendum: 11/01/19 at 0755 by BENIGNO RAMIREZ RT Amended: Links added.
[2019-11-01] MEDS: VITAMINS A AND D 56.7 GM TUBE TP SCH ×2 (09:00→21:00)
[2019-11-01] MEDS: AMIODARONE HCL 200 MG TABLET GT SCH (09:00)
[2019-11-01] MEDS: Z GUARD REMEDY 4 OZ OINT TP SCH ×2 (09:00→21:00)
[2019-11-01] MEDS ORDERED: ZINC SULFATE 220 MG CAPSULE PO SCH (09:00)
[2019-11-01] MEDS: ENOXAPARIN SODIUM 40 MG/0.4 ML DISP.SYRIN SQ SCH (09:00)
[2019-11-01] MEDS: CLOTRIMAZOLE 1% 15 GM TUBE TP SCH ×2 (09:00→20:59)
[2019-11-01] MEDS: LEVETIRACETAM SOL (5 ML) 100 MG/ML UDC GT SCH ×2 (09:00→20:59)
[2019-11-01] MEDS ORDERED: ASCORBIC ACID 500 MG TABLET GT SCH (09:00)
[2019-11-01] MEDS: BACI/NEOM/POLY B OINT PKT 1 UDPKT PACKET TP SCH ×2 (09:00→20:59)
[2019-11-01] MEDS: MUPIROCIN OINT 2% 22 GM TUBE SCH ×2 (09:00→20:59)
[2019-11-01] MEDS ORDERED: MULTIVIT W/MINERALS 1 TAB TABLET GT SCH (09:00)
--- NOTE | 2019-11-01 11:04 | NUR ---
Made a follow-up call to Dr. Duncan, spoke with Blanca from his office and requested to speak with MD regarding wound in the trach area. Awaiting for MD to call back.
--- NOTE | 2019-11-01 11:20 | NUR ---
Received a call from Dr. Duncan, he said he will see the patient either today or tomorrow. Informed MD that L side of patient's trach stoma has wound and PETER Chandra has seen the site but waiting for his (MD Duncan) response and recommendation. Endorsed.
[2019-11-01] MEDS: JEVITY 1.2 CAL 1,000 ML BOTTLE GT PRN (12:38)
--- NOTE | 2019-11-01 14:00 | NUR ---
Placed a follow-up with Dr. Santana to see patient. According to MD he will see patient either today or tomorrow as he is busy at this time.
--- NOTE | 2019-11-01 15:34 | NUR ---
Seen and examined by Dr. Pierre, made aware that patient had an episode of respiratory distress earlier and also informed MD that Dr. Duncan was notified regarding wound in the trach stoma. Dr. Pierre assessed the skin and said to make sure to Dr. Duncan seen resident. Per MD he will come either today or tomorrow. Addendum: 11/01/19 at 1941 by VALERIO QUINTEROS RN Dr. Pierre ordered Tramadol 50mg PRN for moderate to severe pain. Resident's son informed of new order.
--- NOTE | 2019-11-01 15:44 | NUR ---
Optometry Referral: ALONDRA faxed called Dr. [facility] office [phone] and spoke to Adriana to schedule appointment for pt. [facility], ALONDRA faxed the pt.s face sheet to office [phone] and receive completed fax receipt. Per Adriana, she will call ALONDRA to inform if pt. is eligible for another optometry appointment and will schedule with ALONDRA.
[2019-11-01] MEDS ORDERED: TRAMADOL HCL 50 MG TABLET GT PRN (17:30)
[2019-11-01] MEDS: ACETAMINOPHEN 650 MG/20 ML UDC- SA PATIENTS-PAIN ONLY GT PRN (18:17)
--- NOTE | 2019-11-01 18:37 | NUR ---
Notified Dr. Pierre resident with episode of cold, clammy skin, and diaporetic. BS 165, VS 132/79, HR 133 but was up to 155 about 10 min. ago., RR 35, O2 sat 96 % on ventilator, T 99.1. Patient's HR also noted to be fluctuating, goes up and down erratically, reading from pulse oximeter machine to be as low as 80's and will jump up to > 120. New order given by Dr. Pierre for stat CBC, BMP, Troponin and EKG. Orders carried out.
[2019-11-01 19:15] LABS: BASOPHILS % (AUTO) 0.3 % (0.0-2.0); EOSINOPHILS % (AUTO) 0.5 % (0.0-6.0); HEMATOCRIT 29 % (39-51); HEMOGLOBIN 9.6 g/dL (13.5-17.5); LYMPHOCYTES # (AUTO) 0.2 /CMM (0.8-4.8); LYMPHOCYTES % (AUTO) 2.3 % (20.0-44.0); MEAN CORPUSCULAR HGB CONC 33 g/dl (31.0-36.0); MEAN CORPUSCULAR VOLUME 85 fL (80-96); MONOCYTES # (AUTO) 0.7 /CMM (0.1-1.30); MONOCYTES % (AUTO) 6.6 % (2.0-12.0); NEUTROPHILS # (AUTO) 9.8 /CMM (1.8-8.9); NEUTROPHILS % (AUTO) 90.3 % (43.0-81.0); PLATELET COUNT (AUTO) 350 /CMM (150-450); RED BLOOD CELL COUNT(AUTO) 3.39 MIL/uL (4.5-6.0); WHITE BLOOD COUNT (AUTO) 10.8 K/uL (4.3-11.0)
[2019-11-01 19:21] LABS: CALCIUM, SERUM 7.5 mg/dL (8.5-10.1); CARBON DIOXIDE 26 mmol/L (21-32); CHLORIDE 100 mmol/L (98-107); CREATININE 1.3 mg/dL (0.6-1.3); GLUCOSE 175 mg/dL (74-106); POTASSIUM 3.7 mmol/L (3.5-5.1); SODIUM SERUM 137 mmol/L (136-145); UREA NITROGEN, BLOOD 25 mg/dL (7-18)
[2019-11-01 19:43] VITALS: BP 106/50
[2019-11-01 20:06] VITALS: BP 103/51
--- NOTE | 2019-11-01 20:15 | NUR ---
New order for Right upper trunk area open skin;cleanse with NS pat dry and apply triply atb cover with non adherent dressing q shift x 14 days.
--- NOTE | 2019-11-01 20:20 | NUR ---
Relayed results of Troponin level,CBC,BMP, EKG results to Dr. Pierre awaiting for reply. BP 103/51,HR 88,temp 98.8,calm and sleeping,no distress.
[2019-11-01] MEDS ORDERED: BACI/NEOM/POLY B OINT PKT 1 UDPKT PACKET TP SCH (21:00)
--- NOTE | 2019-11-01 21:05 | NUR ---
Received an order from Dr. Pierre and Dr. Hampton to transfer patient to ER for cardiac evaluation.
--- NOTE | 2019-11-01 21:20 | NUR ---
Left voice message to Charlie Flannery RP that pt need to transfer to ER.
--- NOTE | 2019-11-01 21:25 | NUR ---
Seen and examined by Dr. Bonds with new order to cleanse the penile area with NS,and apply triple antibiotic to the open skin.Will continue to monitor.
--- NOTE | 2019-11-01 21:35 | NUR ---
Patient transferred to ER accompanied by PIERCING SPECIALIST, RT and ICE GUARD INSPECTOR. latest BP 98/53 HR 89,Temp 98.8 RR 20.Nursing compounding and finishing supervisor notified and ER charge nurse
--- NOTE | 2019-11-01 21:45 | NUR ---
Spoke to daughter Fabio and notified that we transfer pt to ER for cardiac evaluation per MD order. Appreciative of the call.
--- NOTE | 2019-11-02 11:16 | NUR ---
ALONDRA received a call from the patients daughter, Shae Snyder on 11/01/2019 1600 informing ALONDRA that she would like to speak to the patients attending Physician, Dr. Luis M Pierre. ALONDRA informed today about familys request. However, patient was transferred to [facility]. [facility] to keep family update with patient's plan of care.
--- NOTE | 2019-11-03 08:56 | NUR ---
Traffic Survey Technician called the patients daughter, Shae Snyder [phone] to inform her that the IDT meeting will be postponed to a later date since the patient has since been transferred to [facility] for higher level of care. Shae expressed understanding and was agreeable to plan. Shae informed SW that Dr. Pierre reached out to her yesterday and answered all of her questions. provided [facility] number for Shae to get patient updated from their unit. Shae expressed appreciation for assistance.
[2019-11-04] MEDS ORDERED: PIPE3.379 IV (09:43)
--- NOTE | 2019-11-04 16:30 | NUR ---
Resident readmitted and was brought in from [facility] to subacute via bed. Resident awake, respond to stimulation but non verbal. Per report patient on isolation for MRSA of nares, with admitting diagnosis of pneumonia, sepsis, NSTEMI. Resident on ventilator on SIMV 4, TV 450 Peep 5, PS 10, noted RR reading from vent is 34, but not in distress. Clarified with Dr. Fernandes if he wants to continue with the current setting or place patient on AC. Per Dr. Fernandes to keep patient's vent setting as is and place on AC PRN distress. Body check done. Left a message with Dr. Pierre to verify admission orders.
[2019-11-04] MEDS ORDERED: ONDA4TAB5 GT (18:57)
[2019-11-04] MEDS ORDERED: TRAM50TA2 GT (18:57)
[2019-11-04] MEDS ORDERED: ZINC1CAP2 GT (18:57)
[2019-11-04] MEDS ORDERED: LACT-209 GT (18:57)
[2019-11-04] MEDS ORDERED: MUPI22OI7 (18:57)
[2019-11-04] MEDS ORDERED: ENOX40DI SQ (18:57)
--- NOTE | 2019-11-04 19:00 | NUR ---
Medication reconciled and noted some discrepancies from acute hospital orders and previous orders in subacute prior to transferring the patient. Left a message to Dr. Pierre to clarify. Endorsed to follow-up with
--- NOTE | 2019-11-04 19:15 | NUR ---
Primary Nurse noted very large amount of coffee ground emesis on the patient and on the floor. Charge nurse hold the feeding and checked residual. no residual noted. abdomen is distended but soft with audible bowel sounds. SC will notify .
[2019-11-04 19:42] VITALS: BP 113/69
--- NOTE | 2019-11-04 20:00 | NUR ---
Notified resident's son Hratch Prudencio regarding patient's readmission.
[2019-11-04 20:19] VITALS: BP 139/68
--- NOTE | 2019-11-04 20:39 | NUR ---
Charge nurse notified Dr. Fuchs of the coffee ground emesis and also the verification of medications. Dr. Fuchs with new order to DC lovenox, keep NPO, Start IV 1/2NS @60cc/hr, CBC with def and stool for occult blood. will continue to monitor
[2019-11-04] MEDS: MUPIROCIN OINT 2% 22 GM TUBE SCH (21:00)
[2019-11-04] MEDS: LEVETIRACETAM SOL (5 ML) 100 MG/ML UDC GT SCH (21:00)
[2019-11-04] MEDS: VITAMINS A AND D 56.7 GM TUBE TP SCH (21:00)
[2019-11-04] MEDS: Z GUARD REMEDY 4 OZ OINT TP SCH (21:00)
[2019-11-04] MEDS: CLOTRIMAZOLE 1% 15 GM TUBE TP SCH (21:00)
[2019-11-04 22:17] LABS: OCCULT BLOOD STOOL NEGATIVE (NEGATIVE)
[2019-11-04 23:35] LABS: BASOPHILS % (AUTO) 0.3 % (0.0-2.0); EOSINOPHILS % (AUTO) 1.1 % (0.0-6.0); HEMATOCRIT 31 % (39-51); HEMOGLOBIN 10.3 g/dL (13.5-17.5); LYMPHOCYTES # (AUTO) 0.8 /CMM (0.8-4.8); MEAN CORPUSCULAR HGB CONC 33 g/dl (31.0-36.0); MEAN CORPUSCULAR VOLUME 85 fL (80-96); MONOCYTES # (AUTO) 0.7 /CMM (0.1-1.30); MONOCYTES % (AUTO) 5.8 % (2.0-12.0); NEUTROPHILS # (AUTO) 9.9 /CMM (1.8-8.9); NEUTROPHILS % (AUTO) 85.8 % (43.0-81.0); PLATELET COUNT (AUTO) 452 /CMM (150-450); RED BLOOD CELL COUNT(AUTO) 3.66 MIL/uL (4.5-6.0); WHITE BLOOD COUNT (AUTO) 11.6 K/uL (4.3-11.0)
--- NOTE | 2019-11-05 | NUR ---
Zosyn 3.375GM IVPB given from [facility].
[2019-11-05 00:20] VITALS: BP 133/68
[2019-11-05] MEDS: OMEPRAZOLE 20 MG CAPSULE.DR GT SCH (05:02)
[2019-11-05 06:50] VITALS: BP 127/58
--- NOTE | 2019-11-05 06:51 | NUR ---
Pt awake and calm no more episode of N/V noted, no acute resp distress noted , Vs wnl, remains afebrile. Pt kept clean and dry. Will endorse care to am oncoming nurse.
[2019-11-05 07:31] VITALS: BP 138/79
[2019-11-05] MEDS: PIPERACILLIN /TAZOBACTAM 3.375 G in IV NS 0.9% 50 ML IV SCH ×2 (08:00→16:00)
[2019-11-05] MEDS: MUPIROCIN OINT 2% 22 GM TUBE SCH ×2 (09:00→21:07)
[2019-11-05] MEDS: LOSARTAN POTASSIUM 50 MG TABLET GT SCH (09:00)
[2019-11-05] MEDS: ASCORBIC ACID 500 MG TABLET GT SCH (09:00)
[2019-11-05] MEDS ORDERED: TRAMADOL HCL 50 MG TABLET GT PRN (09:00)
[2019-11-05] MEDS: AMLODIPINE BESYLATE 5 MG TABLET GT SCH (09:00)
[2019-11-05] MEDS: ZINC SULFATE 220 MG CAPSULE GT SCH (09:00)
[2019-11-05] MEDS: LEVETIRACETAM SOL (5 ML) 100 MG/ML UDC GT SCH ×2 (09:00→21:07)
[2019-11-05] MEDS: ATORVASTATIN 10 MG TABLET GT SCH (09:00)
[2019-11-05] MEDS ORDERED: ALBUTEROL FS 2.5 MG/0.5 ML VIAL.NEB NEB PRN (09:00)
[2019-11-05] MEDS ORDERED: ACETAMINOPHEN 650 MG/20 ML UDC- SA PATIENTS-PAIN ONLY GT PRN (09:00)
[2019-11-05] MEDS ORDERED: JEVITY 1.2 CAL 1,000 ML BOTTLE GT PRN (09:00)
[2019-11-05] MEDS: MULTIVIT W/MINERALS 1 TAB TABLET GT SCH (09:00)
[2019-11-05] MEDS: AMIODARONE HCL 200 MG TABLET GT SCH (09:00)
[2019-11-05] MEDS ORDERED: ACETAMINOPHEN 650 MG/20 ML UDC- SA PATIENTS-FEVER ONLY GT PRN (09:00)
[2019-11-05] MEDS ORDERED: IV 1/2NS 1000 ML 1,000 ML IV PRN (10:00)
[2019-11-05] MEDS: METOPROLOL TARTRATE 50 MG TABLET GT SCH (17:09)
--- NOTE | 2019-11-05 17:59 | NUR ---
Referred to Dr. Pierre, no vomiting episode since last night, no signs of bleeding, no gastric residual, v/s stable, afebrile. Ordered to D/C IV hydration, resume GT feeding and start Protonix 40 mg Q D. All orders carried out. Will continue to monitor.
--- NOTE | 2019-11-05 18:14 | NUR ---
Per [facility], Protonix 40 mg via GT is not covered by insurance. Informed Dr. Pierre and gave order for Omeprazole 20 mg via Gt BID, carried out.
[2019-11-05 20:24] VITALS: BP 97/58
[2019-11-05] MEDS ORDERED: Z GUARD REMEDY 4 OZ OINT TP SCH ×2 (21:00)
[2019-11-05] MEDS: CLOTRIMAZOLE 1% 15 GM TUBE TP SCH (21:07)
[2019-11-05] MEDS: Z GUARD REMEDY 4 OZ OINT TP SCH (21:08)
[2019-11-05] MEDS: TAMSULOSIN 0.4 MG CAP.SR.24H GT SCH (21:08)
[2019-11-05] MEDS: BACI/NEOM/POLY B OINT PKT 1 UDPKT PACKET TP SCH ×2 (21:08)
[2019-11-05] MEDS: VITAMINS A AND D 56.7 GM TUBE TP SCH (21:08)
[2019-11-05] MEDS: ZINC OXIDE 30 GM TUBE TP SCH (21:08)
[2019-11-06] MEDS ORDERED: OMEPRAZOLE 20 MG CAPSULE.DR GT SCH (06:00)
[2019-11-06 07:38] VITALS: BP 149/69
[2019-11-06] MEDS: PIPERACILLIN /TAZOBACTAM 3.375 G in IV NS 0.9% 50 ML IV SCH ×4 (08:00→16:00)
--- NOTE | 2019-11-06 08:09 | NUR ---
RT NOTE RECEIVED PT MECHANICALLY VENTILATED VIA CUFFED TRACHEOSTOMY TUBE. CUFF INFLATED. TRACH TUBE MIDLINE AND SECURE. VENTILATOR SETTINGS PRESCRIBED. ALARMS SET PER PROTOCOL AND AUDIBLE. VENT PLUGGED IN TO RED OUTLET. AMBU BAG AND BACK UP TRACH AT BED SIDE. NO DISTRESS NOTED. Addendum: 11/06/19 at 0810 by LEONCIO BHATIA RT Amended: Links added.
[2019-11-06] MEDS: LOSARTAN POTASSIUM 50 MG TABLET GT SCH (09:00)
[2019-11-06] MEDS: VITAMINS A AND D 56.7 GM TUBE TP SCH ×2 (09:00→21:14)
[2019-11-06] MEDS: LEVETIRACETAM SOL (5 ML) 100 MG/ML UDC GT SCH ×2 (09:00→21:13)
[2019-11-06] MEDS: ZINC SULFATE 220 MG CAPSULE GT SCH (09:00)
[2019-11-06] MEDS: OMEPRAZOLE 20 MG CAPSULE.DR GT SCH ×2 (09:00→16:51)
[2019-11-06] MEDS: Z GUARD REMEDY 4 OZ OINT TP SCH ×2 (09:00→21:15)
[2019-11-06] MEDS: AMIODARONE HCL 200 MG TABLET GT SCH (09:00)
[2019-11-06] MEDS: BACI/NEOM/POLY B OINT PKT 1 UDPKT PACKET TP SCH ×4 (09:00→21:14)
[2019-11-06] MEDS: ATORVASTATIN 10 MG TABLET GT SCH (09:00)
[2019-11-06] MEDS: MULTIVIT W/MINERALS 1 TAB TABLET GT SCH (09:00)
[2019-11-06] MEDS ORDERED: BISACODYL (5 MG) 5 MG TABLET.DR GT SCH (09:00)
[2019-11-06] MEDS: MUPIROCIN OINT 2% 22 GM TUBE SCH ×2 (09:00→21:13)
[2019-11-06] MEDS: CLOTRIMAZOLE 1% 15 GM TUBE TP SCH ×2 (09:00→21:14)
[2019-11-06] MEDS: ASCORBIC ACID 500 MG TABLET GT SCH (09:00)
[2019-11-06] MEDS: METOPROLOL TARTRATE 50 MG TABLET GT SCH ×2 (09:00→16:50)
[2019-11-06] MEDS ORDERED: PANTOPRAZOLE 40 MG/PACK PACK GT SCH (09:00)
[2019-11-06] MEDS: ZINC OXIDE 30 GM TUBE TP SCH ×2 (09:00→21:14)
[2019-11-06] MEDS: AMLODIPINE BESYLATE 5 MG TABLET GT SCH (09:00)
--- NOTE | 2019-11-06 13:42 | NUR ---
OPTOMETRY APPOINTMENT: ALONDRA called to follow up with [employer], office [phone] to set up appointment for pt. Per chief accounting officer, Elva, the patient was seen at [facility] in March 2019 and does not qualify for another appointment per his insurance until December 2019. Elva faxed SW the March 2019 optometry report completed by Dr. Vallejo. Report filed in patients chart. ALONDRA will set up appointment for pt. on December 2019.
--- NOTE | 2019-11-06 16:34 | NUR ---
Pt was evaluated by SHAWN Do. Received order to change GT feeding from Jevity 1.2 to Two-Haim HN at 50 mL/hr for 20 hours a day, Prostat 30 mL BID. Pt will receive less volume due to edema, more calories and Prostat will help with low albumin. Notified Hratch.
--- NOTE | 2019-11-06 17:00 | NUR ---
Notified Dr Pierre that pt had 2 bowel movements today and the 2nd one was watery, pt on Dulcolax 10 mg GT daily. Asked him if he wanted to DC or continue Dulcolax.
--- NOTE | 2019-11-06 19:23 | NUR ---
Received pt on Jevity 1.2 at 30 mL/hr this morning and rate was increased to 40 mL/hr around 10 am. No vomiting noted throughout this shift.
[2019-11-06 19:50] VITALS: BP 126/89
[2019-11-06] MEDS: TAMSULOSIN 0.4 MG CAP.SR.24H GT SCH (21:14)
[2019-11-07 08:00] VITALS: BP 91/74
[2019-11-07] MEDS: PIPERACILLIN /TAZOBACTAM 3.375 G in IV NS 0.9% 50 ML IV SCH ×4 (08:00→16:00)
--- NOTE | 2019-11-07 08:30 | NUR ---
Informed Dr Pierre that pt's BP 88/43 P 78 T 98.3. Pt awake and responsive. Dr Pierre ordered to give NS 500 mL IV bolus x 1. Notified Hratch.
[2019-11-07] MEDS: LEVETIRACETAM SOL (5 ML) 100 MG/ML UDC GT SCH ×2 (09:00→20:57)
[2019-11-07] MEDS: ASCORBIC ACID 500 MG TABLET GT SCH (09:00)
[2019-11-07] MEDS: CLOTRIMAZOLE 1% 15 GM TUBE TP SCH ×2 (09:00→20:57)
[2019-11-07] MEDS: ZINC SULFATE 220 MG CAPSULE GT SCH (09:00)
[2019-11-07] MEDS: METOPROLOL TARTRATE 50 MG TABLET GT SCH ×2 (09:00→17:30)
[2019-11-07] MEDS: AMLODIPINE BESYLATE 5 MG TABLET GT SCH (09:00)
[2019-11-07] MEDS: LOSARTAN POTASSIUM 50 MG TABLET GT SCH (09:00)
[2019-11-07] MEDS: AMIODARONE HCL 200 MG TABLET GT SCH (09:00)
[2019-11-07] MEDS: MUPIROCIN OINT 2% 22 GM TUBE SCH ×2 (09:00→20:57)
[2019-11-07] MEDS: Z GUARD REMEDY 4 OZ OINT TP SCH ×2 (09:00→20:58)
[2019-11-07] MEDS: MULTIVIT W/MINERALS 1 TAB TABLET GT SCH (09:00)
[2019-11-07] MEDS: BACI/NEOM/POLY B OINT PKT 1 UDPKT PACKET TP SCH ×4 (09:00→20:57)
[2019-11-07] MEDS: OMEPRAZOLE 20 MG CAPSULE.DR GT SCH ×2 (09:00→17:32)
[2019-11-07] MEDS: VITAMINS A AND D 56.7 GM TUBE TP SCH ×2 (09:00→20:58)
[2019-11-07] MEDS: ZINC OXIDE 30 GM TUBE TP SCH ×2 (09:00→20:58)
[2019-11-07] MEDS: ATORVASTATIN 10 MG TABLET GT SCH (09:00)
--- NOTE | 2019-11-07 10:30 | NUR ---
Pt was given 500 mL IV bolus. Latest BP 102/59 [address] Fernandes this morning. Informed him of pt's hypotension and bolus. Rt informed him of pt's longer inspiration than expiration, but Dr Fernandes said pt is comfortable and he will not order anything new.
[2019-11-07] MEDS ORDERED: IV NS 0.9% 500 ML IV ONE (11:00)
--- NOTE | 2019-11-07 12:15 | NUR ---
Notified Dr Pierre that BP has improved, Amiodarone, Cozaar, and Metoprolol were held. Also informed him that Dulcolax tab was held due to loose stools. Received order to DC Dulcolax. He said he will see pt later today.
--- NOTE | 2019-11-07 13:17 | NUR ---
Called Dr Duncan's office to remind him to see pt. Left message with Berta.
--- NOTE | 2019-11-07 15:00 | NUR ---
Seen by Dr Pierre. Informed him that Dr Duncan has not yet seen pt. He called Dr Duncan himself to see pt's trach site wound. Also informed Dr Pierre that pt lost 16 lbs since the 10/27/19 admission. Pt's edema has improved.
--- NOTE | 2019-11-07 16:42 | NUR ---
Dr Duncan came to see pt. He looked at pt's trach site wound. He said to continue applying Mepilex dressing on the site. No new order.
[2019-11-07] MEDS: TWOCAL HN 1,000 ML LIQUID GT PRN (17:34)
--- NOTE | 2019-11-07 17:34 | NUR ---
RT NOTE RECEIVED PATIENT ON TRACH WITH MECHANICAL VENTILATOR. TRACH IS PATENT AND SECURED. SPARE TRACH AND BVM IS AT BEDSIDE. ALARMS ARE SET AND AUDIBLE. VENTILATOR IS PLUGGED TO RED OUTLET. PATIENT HAS EQUAL CHEST RISE WITH COARSE BILATERAL BREATH SOUNDS. SUCTION SMALL AMOUNT OF THIN GREEN SECRETIONS THROUGH OUT THE DAY. NO SOB NOTED. Addendum: 11/07/19 at 1735 by MAY HEAD RT Amended: Links added.
[2019-11-07 20:54] VITALS: BP 148/80
[2019-11-07] MEDS: TAMSULOSIN 0.4 MG CAP.SR.24H GT SCH (21:00)
[2019-11-08] MEDS: PIPERACILLIN /TAZOBACTAM 3.375 G in IV NS 0.9% 50 ML IV SCH ×2
[2019-11-08] MEDS: VITAMINS A AND D 56.7 GM TUBE TP SCH ×2 (09:00→21:21)
[2019-11-08] MEDS: METOPROLOL TARTRATE 50 MG TABLET GT SCH ×2 (09:00→16:02)
[2019-11-08] MEDS: BACI/NEOM/POLY B OINT PKT 1 UDPKT PACKET TP SCH ×4 (09:00→21:21)
[2019-11-08] MEDS: OMEPRAZOLE 20 MG CAPSULE.DR GT SCH ×2 (09:00→16:02)
[2019-11-08] MEDS: ZINC SULFATE 220 MG CAPSULE GT SCH (09:00)
[2019-11-08] MEDS: MULTIVIT W/MINERALS 1 TAB TABLET GT SCH (09:00)
[2019-11-08] MEDS: ATORVASTATIN 10 MG TABLET GT SCH (09:00)
[2019-11-08] MEDS: LEVETIRACETAM SOL (5 ML) 100 MG/ML UDC GT SCH ×2 (09:00→21:21)
[2019-11-08] MEDS: LOSARTAN POTASSIUM 50 MG TABLET GT SCH (09:00)
[2019-11-08] MEDS: Z GUARD REMEDY 4 OZ OINT TP SCH ×2 (09:00→21:21)
[2019-11-08] MEDS: AMLODIPINE BESYLATE 5 MG TABLET GT SCH (09:00)
[2019-11-08] MEDS: ZINC OXIDE 30 GM TUBE TP SCH ×2 (09:00→21:22)
[2019-11-08] MEDS: MUPIROCIN OINT 2% 22 GM TUBE SCH ×2 (09:00→21:21)
[2019-11-08] MEDS: CLOTRIMAZOLE 1% 15 GM TUBE TP SCH ×2 (09:00→21:21)
[2019-11-08] MEDS: AMIODARONE HCL 200 MG TABLET GT SCH (09:00)
[2019-11-08] MEDS: ASCORBIC ACID 500 MG TABLET GT SCH (09:00)
[2019-11-08 10:13] VITALS: BP 116/51
[2019-11-08] MEDS: TWOCAL HN 1,000 ML LIQUID GT PRN (16:00)
[2019-11-08 20:01] VITALS: BP 91/50
[2019-11-08] MEDS: TAMSULOSIN 0.4 MG CAP.SR.24H GT SCH (21:22)
[2019-11-09] MEDS: MUPIROCIN OINT 2% 22 GM TUBE SCH ×2 (09:00→20:44)
[2019-11-09] MEDS: LOSARTAN POTASSIUM 50 MG TABLET GT SCH (09:00)
[2019-11-09] MEDS: ASCORBIC ACID 500 MG TABLET GT SCH (09:00)
[2019-11-09] MEDS: Z GUARD REMEDY 4 OZ OINT TP SCH ×2 (09:00→20:44)
[2019-11-09] MEDS: AMLODIPINE BESYLATE 5 MG TABLET GT SCH (09:00)
[2019-11-09] MEDS: ATORVASTATIN 10 MG TABLET GT SCH (09:00)
[2019-11-09] MEDS: OMEPRAZOLE 20 MG CAPSULE.DR GT SCH ×2 (09:00→18:11)
[2019-11-09] MEDS: ZINC SULFATE 220 MG CAPSULE GT SCH (09:00)
[2019-11-09] MEDS: ZINC OXIDE 30 GM TUBE TP SCH ×2 (09:00→20:45)
[2019-11-09] MEDS: VITAMINS A AND D 56.7 GM TUBE TP SCH ×2 (09:00→20:45)
[2019-11-09] MEDS: BACI/NEOM/POLY B OINT PKT 1 UDPKT PACKET TP SCH ×4 (09:00→20:44)
[2019-11-09] MEDS: MULTIVIT W/MINERALS 1 TAB TABLET GT SCH (09:00)
[2019-11-09] MEDS: CLOTRIMAZOLE 1% 15 GM TUBE TP SCH ×2 (09:00→20:44)
[2019-11-09] MEDS: AMIODARONE HCL 200 MG TABLET GT SCH (09:00)
[2019-11-09] MEDS: METOPROLOL TARTRATE 50 MG TABLET GT SCH ×2 (09:00→17:00)
[2019-11-09] MEDS: LEVETIRACETAM SOL (5 ML) 100 MG/ML UDC GT SCH ×2 (09:00→20:44)
[2019-11-09] MEDS: PROSTAT (PYXIS) 30 ML UDC GT SCH ×2 (10:53→17:00)
[2019-11-09 11:26] VITALS: BP 114/62
[2019-11-09] MEDS: TWOCAL HN 1,000 ML LIQUID GT PRN (18:12)
[2019-11-09 19:56] VITALS: BP 131/70
--- NOTE | 2019-11-09 21:26 | NUR ---
RT NOTE Pt Rec'd trached on [facility] vent on SIMV mode. No resp distress or sob noted. Pt sx'd for thick mod amt of pale yellow secretions. Alarms are set and audible. Vent plugged into red outlet. ambu bag bedside. Will continue to monitor closely. Addendum: 11/09/19 at 2127 by BERNY VILLAGOMEZ RT Amended: Links added.
[2019-11-09] MEDS: TAMSULOSIN 0.4 MG CAP.SR.24H GT SCH (21:29)
[2019-11-10] MEDS: OMEPRAZOLE 20 MG CAPSULE.DR GT SCH ×2 (05:21→17:03)
[2019-11-10 08:02] VITALS: BP 127/68
[2019-11-10] MEDS: ZINC SULFATE 220 MG CAPSULE GT SCH (09:00)
[2019-11-10] MEDS: VITAMINS A AND D 56.7 GM TUBE TP SCH ×2 (09:00→21:24)
[2019-11-10] MEDS: MULTIVIT W/MINERALS 1 TAB TABLET GT SCH (09:00)
[2019-11-10] MEDS: AMIODARONE HCL 200 MG TABLET GT SCH (09:00)
[2019-11-10] MEDS: MUPIROCIN OINT 2% 22 GM TUBE SCH ×2 (09:00→21:23)
[2019-11-10] MEDS: BACI/NEOM/POLY B OINT PKT 1 UDPKT PACKET TP SCH ×4 (09:00→21:24)
[2019-11-10] MEDS: CLOTRIMAZOLE 1% 15 GM TUBE TP SCH ×2 (09:00→21:23)
[2019-11-10] MEDS: LOSARTAN POTASSIUM 50 MG TABLET GT SCH (09:00)
[2019-11-10] MEDS: LEVETIRACETAM SOL (5 ML) 100 MG/ML UDC GT SCH ×2 (09:00→21:23)
[2019-11-10] MEDS: ASCORBIC ACID 500 MG TABLET GT SCH (09:00)
[2019-11-10] MEDS: ZINC OXIDE 30 GM TUBE TP SCH ×2 (09:00→21:24)
[2019-11-10] MEDS: METOPROLOL TARTRATE 50 MG TABLET GT SCH ×2 (09:00→17:03)
[2019-11-10] MEDS: Z GUARD REMEDY 4 OZ OINT TP SCH ×2 (09:00→21:24)
[2019-11-10] MEDS: PROSTAT (PYXIS) 30 ML UDC GT SCH ×2 (09:00→17:03)
[2019-11-10] MEDS: AMLODIPINE BESYLATE 5 MG TABLET GT SCH (09:00)
--- NOTE | 2019-11-10 15:00 | NUR ---
Notified Dr. Pierre that patient looks pale and gave an order for CBC. Order carried out.
[2019-11-10] MEDS: TWOCAL HN 1,000 ML LIQUID GT PRN (17:07)
[2019-11-10 18:20] LABS: BASOPHILS % (AUTO) 0.3 % (0.0-2.0); EOSINOPHILS % (AUTO) 0.8 % (0.0-6.0); HEMATOCRIT 21 % (39-51); HEMOGLOBIN 7.2 g/dL (13.5-17.5); LYMPHOCYTES # (AUTO) 0.7 /CMM (0.8-4.8); LYMPHOCYTES % (AUTO) 6.6 % (20.0-44.0); MEAN CORPUSCULAR HGB CONC 34 g/dl (31.0-36.0); MEAN CORPUSCULAR VOLUME 85 fL (80-96); MONOCYTES # (AUTO) 0.5 /CMM (0.1-1.30); MONOCYTES % (AUTO) 4.5 % (2.0-12.0); NEUTROPHILS # (AUTO) 9.8 /CMM (1.8-8.9); NEUTROPHILS % (AUTO) 87.8 % (43.0-81.0); PLATELET COUNT (AUTO) 309 /CMM (150-450); RED BLOOD CELL COUNT(AUTO) 2.52 MIL/uL (4.5-6.0); WHITE BLOOD COUNT (AUTO) 11.2 K/uL (4.3-11.0)
--- NOTE | 2019-11-10 18:34 | NUR ---
RT NOTE RECEIVED PATIENT ON MECHANICAL VENT WITH ORDERED SETTINGS. ALARMS ON AND AUDIBLE. VENT PLUGGED IN TO RED OUTLET. TRACH TUBE IN PLACE, PATENT, AND SECURED WITH TRACH TIE. AMBU BAG AND BACK UP TRACH BY THE BEDSIDE. NO DISTRESS AT THIS TIME.
--- NOTE | 2019-11-10 18:57 | NUR ---
Seen and examined by Dr. Pierre and SWATCHER Lora Treadwell NNO given.
[2019-11-10] MEDS: ATORVASTATIN 10 MG TABLET GT SCH (21:23)
[2019-11-10] MEDS: TAMSULOSIN 0.4 MG CAP.SR.24H GT SCH (21:24)
--- NOTE | 2019-11-11 04:23 | NUR ---
RT NOTE: RECEIVED PT ON NOTED ORDERED VENT SETTINGS. NO RESPIRATORY DISTRESS NOTED. TRACH CHECKED SECURE AND PATENT. SXD AND LAVAGE PT Q ROUND AND NEEDED. . TRACH CARE DONE. SPARE TRACH AND AMBU BAG @ BEDSIDE. ALARMS CHECKED ON AND AUDIBLE. VENT PLUGGED INTO RED OUTLET.
[2019-11-11] MEDS: OMEPRAZOLE 20 MG CAPSULE.DR GT SCH ×2 (05:58→17:35)
[2019-11-11 06:59] LABS: BASOPHILS % (AUTO) 0.3 % (0.0-2.0); EOSINOPHILS % (AUTO) 1.1 % (0.0-6.0); HEMATOCRIT 21 % (39-51); HEMOGLOBIN 7.1 g/dL (13.5-17.5); LYMPHOCYTES # (AUTO) 0.9 /CMM (0.8-4.8); MEAN CORPUSCULAR HGB CONC 34 g/dl (31.0-36.0); MEAN CORPUSCULAR VOLUME 84 fL (80-96); MONOCYTES # (AUTO) 0.7 /CMM (0.1-1.30); MONOCYTES % (AUTO) 6.6 % (2.0-12.0); NEUTROPHILS # (AUTO) 8.7 /CMM (1.8-8.9); PLATELET COUNT (AUTO) 294 /CMM (150-450); RED BLOOD CELL COUNT(AUTO) 2.44 MIL/uL (4.5-6.0); WHITE BLOOD COUNT (AUTO) 10.4 K/uL (4.3-11.0)
[2019-11-11 08:09] VITALS: BP 120/55
[2019-11-11] MEDS: MUPIROCIN OINT 2% 22 GM TUBE SCH ×2 (09:00→20:59)
[2019-11-11] MEDS: VITAMINS A AND D 56.7 GM TUBE TP SCH ×2 (09:00→20:59)
[2019-11-11] MEDS: AMIODARONE HCL 200 MG TABLET GT SCH (09:00)
[2019-11-11] MEDS: BACI/NEOM/POLY B OINT PKT 1 UDPKT PACKET TP SCH ×4 (09:00→20:59)
[2019-11-11] MEDS: LOSARTAN POTASSIUM 50 MG TABLET GT SCH (09:00)
[2019-11-11] MEDS: ZINC SULFATE 220 MG CAPSULE GT SCH (09:00)
[2019-11-11] MEDS: AMLODIPINE BESYLATE 5 MG TABLET GT SCH (09:00)
[2019-11-11] MEDS: METOPROLOL TARTRATE 50 MG TABLET GT SCH ×2 (09:00→16:38)
[2019-11-11] MEDS: MULTIVIT W/MINERALS 1 TAB TABLET GT SCH (09:00)
[2019-11-11] MEDS: CLOTRIMAZOLE 1% 15 GM TUBE TP SCH ×2 (09:00→20:59)
[2019-11-11] MEDS: PROSTAT (PYXIS) 30 ML UDC GT SCH ×2 (09:00→16:38)
[2019-11-11] MEDS: Z GUARD REMEDY 4 OZ OINT TP SCH ×2 (09:00→20:59)
[2019-11-11] MEDS: ZINC OXIDE 30 GM TUBE TP SCH ×2 (09:00→20:59)
[2019-11-11] MEDS: LEVETIRACETAM SOL (5 ML) 100 MG/ML UDC GT SCH ×2 (09:00→20:59)
[2019-11-11] MEDS: ASCORBIC ACID 500 MG TABLET GT SCH (09:00)
--- NOTE | 2019-11-11 09:15 | NUR ---
Notified Dr. Pierre of patients' lab results Hgb 7.1, no new orders at this time.
[2019-11-11 10:32] LABS: EOSINOPHILS % (MANUAL) 1 % (0-4); LYMPHOCYTES % (MANUAL) 7 % (16-48); MONOCYTES % (MANUAL) 4 % (0-11.0); MYELOCYTES % 11 % (0-0); NEUTROPHILS % (MANUAL) 77 (42-76)
[2019-11-11] MEDS: TWOCAL HN 1,000 ML LIQUID GT PRN (14:05)
[2019-11-11 19:54] VITALS: BP 113/86
[2019-11-11] MEDS: ATORVASTATIN 10 MG TABLET GT SCH (20:59)
[2019-11-11] MEDS: TAMSULOSIN 0.4 MG CAP.SR.24H GT SCH (21:33)
[2019-11-12] MEDS: OMEPRAZOLE 20 MG CAPSULE.DR GT SCH ×2 (06:05→18:00)
[2019-11-12 07:53] VITALS: BP 105/55
[2019-11-12] MEDS: PROSTAT (PYXIS) 30 ML UDC GT SCH ×2 (09:00→17:00)
[2019-11-12] MEDS: ASCORBIC ACID 500 MG TABLET GT SCH (09:00)
[2019-11-12] MEDS: METOPROLOL TARTRATE 50 MG TABLET GT SCH ×2 (09:00→17:00)
[2019-11-12] MEDS: LOSARTAN POTASSIUM 50 MG TABLET GT SCH (09:00)
[2019-11-12] MEDS: AMLODIPINE BESYLATE 5 MG TABLET GT SCH (09:00)
[2019-11-12] MEDS: AMIODARONE HCL 200 MG TABLET GT SCH (09:00)
[2019-11-12] MEDS: CLOTRIMAZOLE 1% 15 GM TUBE TP SCH ×2 (09:00→20:59)
[2019-11-12] MEDS: BACI/NEOM/POLY B OINT PKT 1 UDPKT PACKET TP SCH ×4 (09:00→20:59)
[2019-11-12] MEDS: MULTIVIT W/MINERALS 1 TAB TABLET GT SCH (09:00)
[2019-11-12] MEDS: LEVETIRACETAM SOL (5 ML) 100 MG/ML UDC GT SCH ×2 (09:00→20:58)
[2019-11-12] MEDS: ZINC OXIDE 30 GM TUBE TP SCH ×2 (09:00→21:00)
[2019-11-12] MEDS: VITAMINS A AND D 56.7 GM TUBE TP SCH ×2 (09:00→21:00)
[2019-11-12] MEDS: Z GUARD REMEDY 4 OZ OINT TP SCH ×2 (09:00→20:59)
[2019-11-12] MEDS: ZINC SULFATE 220 MG CAPSULE GT SCH (09:00)
[2019-11-12] MEDS: TWOCAL HN 1,000 ML LIQUID GT PRN (10:37)
--- NOTE | 2019-11-12 20:07 | NUR ---
RT NOTES PT RECEIVED TRACHED ON [facility] VENT ON CHARTED SETTINGS. NO SIGNS OF RESP DISTRESS/SOB NOTED. AIRWAY PATENT AND SECURED. LINE PRODUCTION COOK DONE. PT SUCTIONED. ALARMS SET AND AUDIBLE. AMBUBAG AND SPARE TRACH AT BEDSIDE. VENT CONNECTED TO RED OUTLET. WILL CONT TO MONITOR Addendum: 11/13/19 at 0314 by NITIN CEDENO RT Amended: Links added.
[2019-11-12 20:38] VITALS: BP 120/71
[2019-11-12] MEDS: ATORVASTATIN 10 MG TABLET GT SCH (20:59)
[2019-11-12] MEDS: TAMSULOSIN 0.4 MG CAP.SR.24H GT SCH (21:03)
[2019-11-13] MEDS: OMEPRAZOLE 20 MG CAPSULE.DR GT SCH ×2 (05:48→17:54)
[2019-11-13 07:47] VITALS: BP 90/47
--- NOTE | 2019-11-13 08:05 | NUR ---
PT RECEIVED TRACHED ON [facility] VENT ON CO ORDERED SETTINGS. AIRWAY PATENT AND SECURED. UNIVERSITY RELATIONS VICE PRESIDENT DONE. ALARMS SET AND AUDIBLE. AMBUBAG AND SPARE TRACH AT BEDSIDE. VENT CONNECTED TO RED OUTLET. Addendum: 11/13/19 at 0805 by BENIGNO RAMIREZ RT Amended: Links added.
[2019-11-13] MEDS: ZINC SULFATE 220 MG CAPSULE GT SCH (09:00)
[2019-11-13] MEDS: MULTIVIT W/MINERALS 1 TAB TABLET GT SCH (09:00)
[2019-11-13] MEDS: CLOTRIMAZOLE 1% 15 GM TUBE TP SCH ×2 (09:00→21:00)
[2019-11-13] MEDS: PROSTAT (PYXIS) 30 ML UDC GT SCH ×2 (09:00→17:54)
[2019-11-13] MEDS: AMIODARONE HCL 200 MG TABLET GT SCH (09:00)
[2019-11-13] MEDS: METOPROLOL TARTRATE 50 MG TABLET GT SCH ×2 (09:00→17:53)
[2019-11-13] MEDS: AMLODIPINE BESYLATE 5 MG TABLET GT SCH (09:00)
[2019-11-13] MEDS: BACI/NEOM/POLY B OINT PKT 1 UDPKT PACKET TP SCH ×4 (09:00→21:00)
[2019-11-13] MEDS: ASCORBIC ACID 500 MG TABLET GT SCH (09:00)
[2019-11-13] MEDS: ZINC OXIDE 30 GM TUBE TP SCH ×2 (09:00→21:00)
[2019-11-13] MEDS: VITAMINS A AND D 56.7 GM TUBE TP SCH ×2 (09:00→21:00)
[2019-11-13] MEDS: LEVETIRACETAM SOL (5 ML) 100 MG/ML UDC GT SCH ×2 (09:00→21:00)
[2019-11-13] MEDS: LOSARTAN POTASSIUM 50 MG TABLET GT SCH (09:00)
[2019-11-13] MEDS: Z GUARD REMEDY 4 OZ OINT TP SCH ×2 (09:00→21:00)
[2019-11-13] MEDS: TWOCAL HN 1,000 ML LIQUID GT PRN (10:10)
[2019-11-13 20:15] VITALS: BP 125/61
[2019-11-13] MEDS: ATORVASTATIN 10 MG TABLET GT SCH (21:00)
[2019-11-13] MEDS: TAMSULOSIN 0.4 MG CAP.SR.24H GT SCH (22:23)
[2019-11-14] MEDS: OMEPRAZOLE 20 MG CAPSULE.DR GT SCH ×2 (05:46→18:05)
[2019-11-14 08:09] VITALS: BP 113/68
[2019-11-14] MEDS: AMIODARONE HCL 200 MG TABLET GT SCH (09:00)
[2019-11-14] MEDS: PROSTAT (PYXIS) 30 ML UDC GT SCH ×2 (09:00→17:00)
[2019-11-14] MEDS: LEVETIRACETAM SOL (5 ML) 100 MG/ML UDC GT SCH ×2 (09:00→21:39)
[2019-11-14] MEDS: VITAMINS A AND D 56.7 GM TUBE TP SCH ×2 (09:00→21:09)
[2019-11-14] MEDS: Z GUARD REMEDY 4 OZ OINT TP SCH ×2 (09:00→21:09)
[2019-11-14] MEDS: CLOTRIMAZOLE 1% 15 GM TUBE TP SCH ×2 (09:00→21:09)
[2019-11-14] MEDS: AMLODIPINE BESYLATE 5 MG TABLET GT SCH (09:00)
[2019-11-14] MEDS: METOPROLOL TARTRATE 50 MG TABLET GT SCH ×2 (09:00→17:00)
[2019-11-14] MEDS: ASCORBIC ACID 500 MG TABLET GT SCH (09:00)
[2019-11-14] MEDS: ZINC OXIDE 30 GM TUBE TP SCH ×2 (09:00→21:09)
[2019-11-14] MEDS: BACI/NEOM/POLY B OINT PKT 1 UDPKT PACKET TP SCH ×4 (09:00→21:09)
[2019-11-14] MEDS: LOSARTAN POTASSIUM 50 MG TABLET GT SCH (09:00)
[2019-11-14] MEDS: MULTIVIT W/MINERALS 1 TAB TABLET GT SCH (09:00)
--- NOTE | 2019-11-14 10:20 | NUR ---
Seen and examined by Dr. Fernandes , no new order given.
--- NOTE | 2019-11-14 10:21 | NUR ---
Seen and examined by Dr. Fernandes, no new order given.
--- NOTE | 2019-11-14 10:26 | NUR ---
HELD BLOOD PRESSURE MEDS EXCEPT FOR METOPROLOL DUE TO PATIENT HAVING HYPOTENSIVE EPISODE YESTERDAY. WILL CONTINUE TO MONITOR.
[2019-11-14] MEDS: TWOCAL HN 1,000 ML LIQUID GT PRN (11:55)
--- NOTE | 2019-11-14 17:47 | NUR ---
RT NOTE RECEIVED PATIENT ON TRACH WITH MECHANICAL VENTILATOR. TRACH IS PATENT AND SECURED. SPARE TRACH AND BVM IS AT BEDSIDE. ALARMS ARE SET AND AUDIBLE. VENTILATOR IS PLUGGED TO RED OUTLET. PATIENT HAS EQUAL CHEST RISE WITH COARSE BILATERAL BREATH SOUNDS. SUCTION SMALL AMOUNT OF THIN GREEN SECRETIONS THROUGH OUT THE DAY. Addendum: 11/14/19 at 1748 by MAY HEAD RT Amended: Links added.
--- NOTE | 2019-11-14 18:23 | NUR ---
Carlton. nasal swab done for MRSA clearance as ordered by Dr. Pierre.
[2019-11-14] MEDS: ATORVASTATIN 10 MG TABLET GT SCH (21:09)
[2019-11-14] MEDS: TAMSULOSIN 0.4 MG CAP.SR.24H GT SCH (21:10)
[2019-11-15] MEDS: OMEPRAZOLE 20 MG CAPSULE.DR GT SCH ×2 (05:46→17:23)
[2019-11-15 08:41] VITALS: BP 104/58
[2019-11-15] MEDS: LOSARTAN POTASSIUM 50 MG TABLET GT SCH (09:00)
[2019-11-15] MEDS: METOPROLOL TARTRATE 50 MG TABLET GT SCH ×2 (09:00→17:00)
[2019-11-15] MEDS: Z GUARD REMEDY 4 OZ OINT TP SCH ×2 (09:00→21:40)
[2019-11-15] MEDS: AMIODARONE HCL 200 MG TABLET GT SCH (09:00)
[2019-11-15] MEDS: LEVETIRACETAM SOL (5 ML) 100 MG/ML UDC GT SCH ×2 (09:00→21:39)
[2019-11-15] MEDS: AMLODIPINE BESYLATE 5 MG TABLET GT SCH (09:00)
[2019-11-15] MEDS: VITAMINS A AND D 56.7 GM TUBE TP SCH ×2 (09:00→21:40)
[2019-11-15] MEDS: MULTIVIT W/MINERALS 1 TAB TABLET GT SCH (09:00)
[2019-11-15] MEDS: ASCORBIC ACID 500 MG TABLET GT SCH (09:00)
[2019-11-15] MEDS: BACI/NEOM/POLY B OINT PKT 1 UDPKT PACKET TP SCH ×4 (09:00→21:40)
[2019-11-15] MEDS: ZINC OXIDE 30 GM TUBE TP SCH ×2 (09:00→21:41)
[2019-11-15] MEDS: CLOTRIMAZOLE 1% 15 GM TUBE TP SCH ×2 (09:00→21:39)
[2019-11-15] MEDS: PROSTAT (PYXIS) 30 ML UDC GT SCH ×2 (09:00→17:23)
[2019-11-15] MEDS: TWOCAL HN 1,000 ML LIQUID GT PRN ×2 (11:42→12:00)
[2019-11-15 21:05] VITALS: BP 116/50
[2019-11-15] MEDS: ATORVASTATIN 10 MG TABLET GT SCH (21:39)
[2019-11-15] MEDS: TAMSULOSIN 0.4 MG CAP.SR.24H GT SCH (21:41)
[2019-11-16] MEDS: OMEPRAZOLE 20 MG CAPSULE.DR GT SCH ×2 (05:41→18:17)
[2019-11-16 08:00] VITALS: BP 98/61
[2019-11-16] MEDS: METOPROLOL TARTRATE 50 MG TABLET GT SCH ×2 (09:00→17:00)
--- NOTE | 2019-11-16 09:30 | NUR ---
Notified Dr. Shrestha that pt complaining of pain during tracheal site wound tx. Order obtained to administer acetaminophen prior to wound tx. Order carried out.
[2019-11-16] MEDS: LOSARTAN POTASSIUM 50 MG TABLET GT SCH (09:41)
[2019-11-16] MEDS: LEVETIRACETAM SOL (5 ML) 100 MG/ML UDC GT SCH ×2 (09:41→20:55)
[2019-11-16] MEDS: AMIODARONE HCL 200 MG TABLET GT SCH (09:41)
[2019-11-16] MEDS: AMLODIPINE BESYLATE 5 MG TABLET GT SCH (09:42)
[2019-11-16] MEDS: PROSTAT (PYXIS) 30 ML UDC GT SCH ×2 (09:42→17:00)
[2019-11-16] MEDS: ASCORBIC ACID 500 MG TABLET GT SCH (09:42)
[2019-11-16] MEDS: MULTIVIT W/MINERALS 1 TAB TABLET GT SCH (09:42)
[2019-11-16] MEDS: VITAMINS A AND D 56.7 GM TUBE TP SCH ×2 (09:43→20:56)
[2019-11-16] MEDS: BACI/NEOM/POLY B OINT PKT 1 UDPKT PACKET TP SCH ×4 (09:43→20:56)
[2019-11-16] MEDS: Z GUARD REMEDY 4 OZ OINT TP SCH ×2 (09:43→20:56)
[2019-11-16] MEDS: CLOTRIMAZOLE 1% 15 GM TUBE TP SCH ×2 (09:43→20:56)
[2019-11-16] MEDS: ZINC OXIDE 30 GM TUBE TP SCH ×2 (09:44→20:56)
[2019-11-16] MEDS: TWOCAL HN 1,000 ML LIQUID GT PRN (09:45)
--- NOTE | 2019-11-16 10:47 | NUR ---
Nares culture negative for MRSA. Order obtained to DC contact isolation. Order carried out.
--- NOTE | 2019-11-16 13:58 | NUR ---
ALONDRA called and spoke to Mystery at Dr. Hernandez's office [phone] to scheduled dental exam and cleaning appointment for patient. Per Mystery, Dr. Hernandez is available on 12/06/2019 after 12 noon to see the patient. ALONDRA faxed the pt.'s face sheet to Dr. Hernandez's office [phone] for dental exam and cleaning referral and received completed fax receipt.
--- NOTE | 2019-11-16 14:28 | NUR ---
MDS: Student Ambassador completed the Short Order Fry Cook portion of the admission MDS. 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 Per Nursing staff, they have witnessed the pt. verbalizing. The patient has an Optometry exam done by Dr. Vallejo in 03/24/2019 [facility] and will be eligible for another appointment in December 2019. The patients is scheduled to have a dental appointment with Dr. Hernandez on 12/06/2019. The patients responsible green party are the patients son, Aba Flannery and the pt.s daughter, Shae [phone].
--- NOTE | 2019-11-16 14:51 | NUR ---
RT NOTE: PATIENT RECEIVED TRACHED ON MECHANICAL VENT. ALARMS VERIFIED AND AUDIBLE. VENT PLUGGED INTO RED OUTLET. NEW TRACH AND AMBU BAG AT [facility].
[2019-11-16 19:51] VITALS: BP 110/72
--- NOTE | 2019-11-16 20:18 | NUR ---
RT NOTE PT RECEIVED AWAKE/NONVERBAL TRACHED ON MECHANICAL VENTILATION. AMBU BAG/BACK UP TRACH @ BEDSIDE. TX GIVEN, NO ADVERSE REACTIONS NOTED. SX DONE, TRACH SECURED AND PATENT. ALARMS ON AND AUDIBLE. NO SOB NOTED AT THIS TIME. PT TOLERATING CURRENT SIMV SETTINGS. WILL CONTINUE TO MONITOR T/O SHIFT. CONT. PULSE OX CONNECTED. Addendum: 11/16/19 at 2019 by MERCEDES SALGUERO RT Amended: Links added.
[2019-11-16] MEDS: ATORVASTATIN 10 MG TABLET GT SCH (20:55)
[2019-11-16] MEDS: ACETAMINOPHEN 650 MG/20 ML UDC- SA PATIENTS-PAIN ONLY GT SCH (20:56)
[2019-11-16] MEDS: TAMSULOSIN 0.4 MG CAP.SR.24H GT SCH (21:00)
[2019-11-17] MEDS: OMEPRAZOLE 20 MG CAPSULE.DR GT SCH ×2 (05:44→17:10)
[2019-11-17 07:58] VITALS: BP 124/59
[2019-11-17] MEDS: AMIODARONE HCL 200 MG TABLET GT SCH (09:00)
[2019-11-17] MEDS: MULTIVIT W/MINERALS 1 TAB TABLET GT SCH (09:00)
[2019-11-17] MEDS: LOSARTAN POTASSIUM 50 MG TABLET GT SCH (09:00)
[2019-11-17] MEDS: METOPROLOL TARTRATE 50 MG TABLET GT SCH ×2 (09:00→16:55)
[2019-11-17] MEDS: LEVETIRACETAM SOL (5 ML) 100 MG/ML UDC GT SCH ×2 (09:00→20:38)
[2019-11-17] MEDS: AMLODIPINE BESYLATE 5 MG TABLET GT SCH (09:00)
[2019-11-17] MEDS: ASCORBIC ACID 500 MG TABLET GT SCH (09:00)
[2019-11-17] MEDS: PROSTAT (PYXIS) 30 ML UDC GT SCH ×2 (09:00→16:56)
[2019-11-17] MEDS: ACETAMINOPHEN 650 MG/20 ML UDC- SA PATIENTS-PAIN ONLY GT SCH ×2 (10:30→20:38)
[2019-11-17] MEDS: CLOTRIMAZOLE 1% 15 GM TUBE TP SCH ×2 (11:00→20:38)
[2019-11-17] MEDS: VITAMINS A AND D 56.7 GM TUBE TP SCH ×2 (11:00→20:38)
[2019-11-17] MEDS: ZINC OXIDE 30 GM TUBE TP SCH ×2 (11:00→20:39)
[2019-11-17] MEDS: BACI/NEOM/POLY B OINT PKT 1 UDPKT PACKET TP SCH ×4 (11:00→20:38)
[2019-11-17] MEDS: Z GUARD REMEDY 4 OZ OINT TP SCH ×2 (11:00→20:38)
[2019-11-17] MEDS: TWOCAL HN 1,000 ML LIQUID GT PRN (11:02)
--- NOTE | 2019-11-17 16:00 | NUR ---
During IDT, Dr. Fernandes ordered to place patient on cool aerosol, check CBC and Pre-albumin level on Wednesday. Dr. Fernandes also gave parameter for Amlodipine and Losartan. Resident's daughter Shae is aware of the orders.
--- NOTE | 2019-11-17 16:27 | NUR ---
INTERDISCIPLINARY PLAN OF CARE CONFERENCE took place today. The patients Daughter, Shae Snyder [phone] participated via phone conference. Dr. Fernandes and Interdisciplinary team discussed the plan of care in detail. The IDT addressed all of the familys questions. Current orders as well as treatments and medications were reviewed. Charge nurse discussed the pt.s feeding has been increased to PEG TF TwoCal HN at 50ml/hr x 20 hr + Prostat BID [TF+Prostat BID: 2200 calories, 114 gram protein]; Nares culture negative for MRSA & contact isolation has been D/C. Please see other disciplines IDT notes for further details.
[2019-11-17 18:27] VITALS: BP 110/57
[2019-11-17 20:05] VITALS: BP 136/75
[2019-11-17 20:10] VITALS: BP 101/51
[2019-11-17] MEDS: ATORVASTATIN 10 MG TABLET GT SCH (20:38)
[2019-11-17] MEDS: TAMSULOSIN 0.4 MG CAP.SR.24H GT SCH (21:22)
[2019-11-18] MEDS: TWOCAL HN 1,000 ML LIQUID GT PRN (05:31)
[2019-11-18] MEDS: OMEPRAZOLE 20 MG CAPSULE.DR GT SCH ×2 (05:31→17:58)
[2019-11-18 08:02] VITALS: BP 110/57
[2019-11-18] MEDS: BACI/NEOM/POLY B OINT PKT 1 UDPKT PACKET TP SCH ×4 (09:30→20:29)
[2019-11-18] MEDS: CLOTRIMAZOLE 1% 15 GM TUBE TP SCH ×2 (09:30→20:29)
[2019-11-18] MEDS: VITAMINS A AND D 56.7 GM TUBE TP SCH ×2 (09:30→20:29)
[2019-11-18] MEDS: ZINC OXIDE 30 GM TUBE TP SCH ×2 (09:30→20:29)
[2019-11-18] MEDS: Z GUARD REMEDY 4 OZ OINT TP SCH ×2 (09:30→20:29)
[2019-11-18] MEDS: AMLODIPINE BESYLATE 5 MG TABLET GT SCH (09:58)
[2019-11-18] MEDS: AMIODARONE HCL 200 MG TABLET GT SCH (09:59)
[2019-11-18] MEDS: ASCORBIC ACID 500 MG TABLET GT SCH (09:59)
[2019-11-18] MEDS: MULTIVIT W/MINERALS 1 TAB TABLET GT SCH (09:59)
[2019-11-18] MEDS: PROSTAT (PYXIS) 30 ML UDC GT SCH ×2 (09:59→17:58)
[2019-11-18] MEDS: LEVETIRACETAM SOL (5 ML) 100 MG/ML UDC GT SCH ×2 (09:59→20:28)
[2019-11-18] MEDS: ACETAMINOPHEN 650 MG/20 ML UDC- SA PATIENTS-PAIN ONLY GT SCH ×2 (09:59→20:29)
[2019-11-18] MEDS: LOSARTAN POTASSIUM 50 MG TABLET GT SCH (09:59)
[2019-11-18] MEDS: METOPROLOL TARTRATE 50 MG TABLET GT SCH ×2 (10:00→17:58)
--- NOTE | 2019-11-18 17:43 | NUR ---
RT NOTE PATIENT RECEIVED ON MECHANICAL VENTILATOR WITH ORDERED SETTINGS. ALARMS ON AND AUDIBLE. VENT PLUGGED IN TO THE RED OUTLET. TRACH TUBE IN PLACE, PATENT, AND SECURED WITH TRACH TIE. BACK UP TRACH AND AMBU BAG BY THE BEDSIDE. SHOWS NO SIGN OF ANY DISTRESS AT THIS TIME.
[2019-11-18 19:42] VITALS: BP 117/57
--- NOTE | 2019-11-18 19:56 | NUR ---
PT RECEIVED TRACHED ON [facility] VENT ON MD ORDERED SETTINGS. NO SIGNS OF RESP DISTRESS/SOB NOTED. AIRWAY PATENT AND SECURED. HOSPITAL ACCOUNT LIAISON DONE. ALARMS SET AND AUDIBLE. AMBUBAG AND SPARE TRACH AT BEDSIDE. VENT CONNECTED TO RED OUTLET. Addendum: 11/18/19 at 1956 by BENIGNO RAMIREZ RT Amended: Links added.
[2019-11-18] MEDS: ATORVASTATIN 10 MG TABLET GT SCH (20:28)
[2019-11-18] MEDS: TAMSULOSIN 0.4 MG CAP.SR.24H GT SCH (21:07)
[2019-11-19] MEDS: OMEPRAZOLE 20 MG CAPSULE.DR GT SCH ×2 (05:07→17:24)
[2019-11-19 08:24] VITALS: BP 122/58
[2019-11-19] MEDS: VITAMINS A AND D 56.7 GM TUBE TP SCH ×2 (09:00→21:06)
[2019-11-19] MEDS: ASCORBIC ACID 500 MG TABLET GT SCH (09:00)
[2019-11-19] MEDS: MULTIVIT W/MINERALS 1 TAB TABLET GT SCH (09:00)
[2019-11-19] MEDS: METOPROLOL TARTRATE 50 MG TABLET GT SCH ×2 (09:00→17:24)
[2019-11-19] MEDS: PROSTAT (PYXIS) 30 ML UDC GT SCH ×2 (09:00→17:24)
[2019-11-19] MEDS: BACI/NEOM/POLY B OINT PKT 1 UDPKT PACKET TP SCH ×2 (09:00)
[2019-11-19] MEDS: CLOTRIMAZOLE 1% 15 GM TUBE TP SCH ×2 (09:00→21:06)
[2019-11-19] MEDS: AMLODIPINE BESYLATE 5 MG TABLET GT SCH (09:00)
[2019-11-19] MEDS: LOSARTAN POTASSIUM 50 MG TABLET GT SCH (09:00)
[2019-11-19] MEDS: ZINC OXIDE 30 GM TUBE TP SCH (09:00)
[2019-11-19] MEDS: ACETAMINOPHEN 650 MG/20 ML UDC- SA PATIENTS-PAIN ONLY GT SCH ×2 (09:00→21:06)
[2019-11-19] MEDS: LEVETIRACETAM SOL (5 ML) 100 MG/ML UDC GT SCH ×2 (09:00→21:06)
[2019-11-19] MEDS: Z GUARD REMEDY 4 OZ OINT TP SCH ×2 (09:00→21:06)
[2019-11-19] MEDS: AMIODARONE HCL 200 MG TABLET GT SCH (09:00)
[2019-11-19] MEDS: TWOCAL HN 1,000 ML LIQUID GT PRN (15:16)
[2019-11-19 20:32] VITALS: BP 132/96
[2019-11-19] MEDS: ATORVASTATIN 10 MG TABLET GT SCH (21:06)
[2019-11-19] MEDS: TAMSULOSIN 0.4 MG CAP.SR.24H GT SCH (21:06)
[2019-11-20] MEDS: OMEPRAZOLE 20 MG CAPSULE.DR GT SCH ×2 (06:03→17:34)
[2019-11-20 07:09] LABS: BASOPHILS # (AUTO) 0.1 /CMM (0.0-0.2); BASOPHILS % (AUTO) 0.7 % (0.0-2.0); EOSINOPHILS % (AUTO) 2.3 % (0.0-6.0); HEMATOCRIT 24 % (39-51); HEMOGLOBIN 8.1 g/dL (13.5-17.5); LYMPHOCYTES % (AUTO) 11.7 % (20.0-44.0); MEAN CORPUSCULAR HGB CONC 34 g/dl (31.0-36.0); MEAN CORPUSCULAR VOLUME 85 fL (80-96); MONOCYTES # (AUTO) 0.6 /CMM (0.1-1.30); MONOCYTES % (AUTO) 7.3 % (2.0-12.0); NEUTROPHILS # (AUTO) 6.5 /CMM (1.8-8.9); PLATELET COUNT (AUTO) 328 /CMM (150-450); RED BLOOD CELL COUNT(AUTO) 2.79 MIL/uL (4.5-6.0); WHITE BLOOD COUNT (AUTO) 8.4 K/uL (4.3-11.0)
--- NOTE | 2019-11-20 07:55 | NUR ---
Requested Dr. Muñoz, shell grader to review patient's medications as blood pressure tends to be on the low side and most of the time it is being held. He said that he will take a look.
[2019-11-20] MEDS: CLOTRIMAZOLE 1% 15 GM TUBE TP SCH ×2 (09:00→21:43)
[2019-11-20] MEDS: AMLODIPINE BESYLATE 5 MG TABLET GT SCH (09:00)
[2019-11-20] MEDS: ASCORBIC ACID 500 MG TABLET GT SCH (09:00)
[2019-11-20] MEDS: VITAMINS A AND D 56.7 GM TUBE TP SCH ×2 (09:00→21:43)
[2019-11-20] MEDS: LEVETIRACETAM SOL (5 ML) 100 MG/ML UDC GT SCH ×2 (09:00→21:02)
[2019-11-20] MEDS: Z GUARD REMEDY 4 OZ OINT TP SCH ×2 (09:00→21:43)
[2019-11-20] MEDS: ACETAMINOPHEN 650 MG/20 ML UDC- SA PATIENTS-PAIN ONLY GT SCH ×2 (09:00→21:02)
[2019-11-20] MEDS: MULTIVIT W/MINERALS 1 TAB TABLET GT SCH (09:00)
[2019-11-20] MEDS: PROSTAT (PYXIS) 30 ML UDC GT SCH ×3 (09:00→21:02)
[2019-11-20] MEDS: LOSARTAN POTASSIUM 50 MG TABLET GT SCH (09:00)
[2019-11-20] MEDS: AMIODARONE HCL 200 MG TABLET GT SCH (09:00)
[2019-11-20] MEDS: METOPROLOL TARTRATE 50 MG TABLET GT SCH ×2 (09:00→17:00)
--- NOTE | 2019-11-20 09:00 | NUR ---
Relayed CBC ( Hbg 8.1) and Albumin (2.2) level to Dr. Dom SOLORZANO given.
[2019-11-20] MEDS: TWOCAL HN 1,000 ML LIQUID GT PRN (11:18)
[2019-11-20 12:03] LABS: ABG BASE EXCESS -3.7 mmol/L; ABG OXYGEN SATURATION 97.2 % (92.0-98.5); ABG PCO2 35.3 mmHg (35.0-45.0); ABG PH 7.389 (7.350-7.450); ABG PO2 109.4 mmHg (75.0-100.0); AaDO2 99.1 mmHg; COHb 0.6 % (0.5-1.5); MetHb 0.7 % (0.0-1.5); O2Hb 95.9 % (94.0-97.0); SITE, ABG Left Radial
--- NOTE | 2019-11-20 13:00 | NUR ---
Resident on weaning trial, ABG done and relayed result to Dr. Fernandes with order to continue cool aerosol as tolerated and decrease Fi02 to 28% and may titrate O2 to keep Spo2 to greater or equal to 94%.
[2019-11-20 13:08] VITALS: BP 130/61
--- NOTE | 2019-11-20 13:30 | NUR ---
Seen and examined by EMMANUEL Treadwell, NNO given.
[2019-11-20 14:00] VITALS: BP 86/40
--- NOTE | 2019-11-20 14:45 | NUR ---
Seen and examined by Dr. Pierre. Informed MD that patient's family is requesting to speak with him regarding the trach wound. Dr. Pierre assessed resident's trach wound. Wound on the L side of the trach is dry whereas the R side of the stoma is moist with white tissue in the wound bed. Informed MD that wound is not improving with current treatment. He said to use a non adherent dressing to the site to ask Dr. Rowan for his recommendation to keep the area dry. Informed Dr. Rowan that wound bed is always moist because of the secretions that is leaking from the stoma. MD gave an order to change current order to Calcium alginate, cover with non-adherent dressing followed with Mepilex for cushion. Dr. Pierre also made aware that patient's BP tends to be on the low side, after reviewing BP for the past few days and current medication, he discontinue Norvasc. Order carried out.
[2019-11-20] MEDS: IV NS 0.9% 500 ML IV ONE (16:00)
[2019-11-20 17:27] VITALS: BP 113/54
--- NOTE | 2019-11-20 18:20 | NUR ---
[address] Pierre resident's BP is low; L arm 86/40, HR 78, R arm 76/42, HR 81. New order given to give IV NS 500 ml bolus. BP rechecked at 1800 113/54, HR 87. Spoke with resident's son Hratch, notified of new order and patient's response to weaning. Trach wound order was changed to Ca+ alginate and Norvasc was DC and IVF given due to episode of hypotension but BP improved after IVF given. Appreciated the call.
--- NOTE | 2019-11-20 18:29 | NUR ---
RT NOTE Pt placed on cool aerosol 35% per MD order. Abg drawn and results given to Lj Malone RN. Fio2 titrated to 28%. Pt rested comfortably t/o shift. No respiratory distress or sob noted t/o shift. Vent at bedside on standby.
--- NOTE | 2019-11-20 19:57 | NUR ---
RT pt received on cool aerosol at 8 lpm, 35%. trached with shiley 6. hob at 30 degrees. ambu bag at head of bed. spare trach at bedside. minimal secretions. no sob. no resp distress. will titrate to 28% if tolerable. will continue to monitor Addendum: 11/20/19 at 2355 by GRADY SANCHEZ RT Amended: Links added.
[2019-11-20 20:18] VITALS: BP 111/61
[2019-11-20] MEDS: ATORVASTATIN 10 MG TABLET GT SCH (21:02)
[2019-11-20] MEDS: TAMSULOSIN 0.4 MG CAP.SR.24H GT SCH (21:43)
[2019-11-21] MEDS: OMEPRAZOLE 20 MG CAPSULE.DR GT SCH ×2 (05:16→18:22)
[2019-11-21] MEDS: LOSARTAN POTASSIUM 50 MG TABLET GT SCH (09:00)
[2019-11-21] MEDS: VITAMINS A AND D 56.7 GM TUBE TP SCH ×2 (09:00→21:41)
[2019-11-21] MEDS: Z GUARD REMEDY 4 OZ OINT TP SCH ×2 (09:00→21:41)
[2019-11-21] MEDS: METOPROLOL TARTRATE 50 MG TABLET GT SCH ×2 (09:00→17:00)
[2019-11-21] MEDS: CLOTRIMAZOLE 1% 15 GM TUBE TP SCH ×2 (09:00→21:41)
[2019-11-21] MEDS: ACETAMINOPHEN 650 MG/20 ML UDC- SA PATIENTS-PAIN ONLY GT SCH ×2 (09:00→21:41)
[2019-11-21] MEDS: PROSTAT (PYXIS) 30 ML UDC GT SCH ×3 (09:00→21:41)
[2019-11-21] MEDS: MULTIVIT W/MINERALS 1 TAB TABLET GT SCH (09:00)
[2019-11-21] MEDS: ASCORBIC ACID 500 MG TABLET GT SCH (09:00)
[2019-11-21] MEDS: AMIODARONE HCL 200 MG TABLET GT SCH (09:00)
[2019-11-21] MEDS: LEVETIRACETAM SOL (5 ML) 100 MG/ML UDC GT SCH ×2 (09:00→21:41)
[2019-11-21 10:39] VITALS: BP 149/85
[2019-11-21 20:22] VITALS: BP 124/74
[2019-11-21] MEDS: TAMSULOSIN 0.4 MG CAP.SR.24H GT SCH (21:41)
[2019-11-21] MEDS: ATORVASTATIN 10 MG TABLET GT SCH (21:41)
[2019-11-22] MEDS: OMEPRAZOLE 20 MG CAPSULE.DR GT SCH ×2 (05:40→17:30)
[2019-11-22 07:53] VITALS: BP 116/60
[2019-11-22] MEDS: LEVETIRACETAM SOL (5 ML) 100 MG/ML UDC GT SCH ×2 (09:00→20:33)
[2019-11-22] MEDS: MULTIVIT W/MINERALS 1 TAB TABLET GT SCH (09:00)
[2019-11-22] MEDS: VITAMINS A AND D 56.7 GM TUBE TP SCH ×2 (09:00→20:32)
[2019-11-22] MEDS: AMIODARONE HCL 200 MG TABLET GT SCH (09:00)
[2019-11-22] MEDS: CLOTRIMAZOLE 1% 15 GM TUBE TP SCH ×2 (09:00→20:32)
[2019-11-22] MEDS: Z GUARD REMEDY 4 OZ OINT TP SCH ×2 (09:00→20:32)
[2019-11-22] MEDS: ACETAMINOPHEN 650 MG/20 ML UDC- SA PATIENTS-PAIN ONLY GT SCH ×2 (09:00→20:36)
[2019-11-22] MEDS: METOPROLOL TARTRATE 50 MG TABLET GT SCH ×2 (09:00→17:00)
[2019-11-22] MEDS: PROSTAT (PYXIS) 30 ML UDC GT SCH ×3 (09:00→20:32)
[2019-11-22] MEDS: ASCORBIC ACID 500 MG TABLET GT SCH (09:00)
[2019-11-22] MEDS: LOSARTAN POTASSIUM 50 MG TABLET GT SCH (09:00)
[2019-11-22] MEDS: TWOCAL HN 1,000 ML LIQUID GT PRN (13:34)
--- NOTE | 2019-11-22 16:50 | NUR ---
Updated Dr. Pierre patient's treatment in the trach site wound changed to calcium alginate by Dr. Rowan. Wound slowly responding to new treatment, continue to observe effectiveness.
[2019-11-22] MEDS: ATORVASTATIN 10 MG TABLET GT SCH (20:32)
[2019-11-22] MEDS: TAMSULOSIN 0.4 MG CAP.SR.24H GT SCH (22:18)
[2019-11-22 23:32] VITALS: BP 109/61
[2019-11-23] MEDS: OMEPRAZOLE 20 MG CAPSULE.DR GT SCH ×2 (05:19→18:06)
[2019-11-23 07:54] VITALS: BP 112/60
[2019-11-23] MEDS: MULTIVIT W/MINERALS 1 TAB TABLET GT SCH (09:27)
[2019-11-23] MEDS: VITAMINS A AND D 56.7 GM TUBE TP SCH ×2 (09:27→20:10)
[2019-11-23] MEDS: METOPROLOL TARTRATE 50 MG TABLET GT SCH ×2 (09:27→16:55)
[2019-11-23] MEDS: CLOTRIMAZOLE 1% 15 GM TUBE TP SCH ×2 (09:27→20:13)
[2019-11-23] MEDS: AMIODARONE HCL 200 MG TABLET GT SCH (09:27)
[2019-11-23] MEDS: LEVETIRACETAM SOL (5 ML) 100 MG/ML UDC GT SCH ×2 (09:27→20:08)
[2019-11-23] MEDS: ACETAMINOPHEN 650 MG/20 ML UDC- SA PATIENTS-PAIN ONLY GT SCH ×2 (09:27→20:10)
[2019-11-23] MEDS: ASCORBIC ACID 500 MG TABLET GT SCH (09:27)
[2019-11-23] MEDS: Z GUARD REMEDY 4 OZ OINT TP SCH ×2 (09:27→20:10)
[2019-11-23] MEDS: PROSTAT (PYXIS) 30 ML UDC GT SCH ×3 (09:27→20:09)
[2019-11-23] MEDS: LOSARTAN POTASSIUM 50 MG TABLET GT SCH (09:27)
[2019-11-23] MEDS: TWOCAL HN 1,000 ML LIQUID GT PRN (16:55)
--- NOTE | 2019-11-23 17:04 | NUR ---
RT NOTE RECEIVED PATIENT WITH TRACH ON COOL AEROSOL. TRACH IS PATENT AND SECURED. SPARE TRACH AND BVM IS AT BEDSIDE. PATIENT HAS EQUAL CHEST RISE WITH COARSE AND DIMINISHED BILATERAL BREATH SOUNDS. SUCTION MODERATE AMOUNT OF GREEN/WHITE THICK SECRETIONS THROUGH OUT THE DAY. Addendum: 11/23/19 at 1705 by MAY HEAD RT Amended: Links added.
[2019-11-23 20:05] VITALS: BP 100/63
[2019-11-23] MEDS: ATORVASTATIN 10 MG TABLET GT SCH (20:08)
[2019-11-23] MEDS: TAMSULOSIN 0.4 MG CAP.SR.24H GT SCH (21:16)
[2019-11-24] MEDS: OMEPRAZOLE 20 MG CAPSULE.DR GT SCH ×2 (05:37→17:24)
[2019-11-24 08:12] VITALS: BP 119/59
[2019-11-24] MEDS: LOSARTAN POTASSIUM 50 MG TABLET GT SCH (09:00)
[2019-11-24] MEDS: AMIODARONE HCL 200 MG TABLET GT SCH (09:00)
[2019-11-24] MEDS: ACETAMINOPHEN 650 MG/20 ML UDC- SA PATIENTS-PAIN ONLY GT SCH ×2 (09:01→20:22)
[2019-11-24] MEDS: METOPROLOL TARTRATE 50 MG TABLET GT SCH ×2 (09:01→17:00)
[2019-11-24] MEDS: MULTIVIT W/MINERALS 1 TAB TABLET GT SCH (09:01)
[2019-11-24] MEDS: LEVETIRACETAM SOL (5 ML) 100 MG/ML UDC GT SCH ×2 (09:01→20:21)
[2019-11-24] MEDS: ASCORBIC ACID 500 MG TABLET GT SCH (09:01)
[2019-11-24] MEDS: PROSTAT (PYXIS) 30 ML UDC GT SCH ×3 (09:01→20:22)
[2019-11-24] MEDS: TWOCAL HN 1,000 ML LIQUID GT PRN (09:04)
[2019-11-24] MEDS: Z GUARD REMEDY 4 OZ OINT TP SCH ×2 (09:04→20:23)
[2019-11-24] MEDS: VITAMINS A AND D 56.7 GM TUBE TP SCH ×2 (09:04→20:23)
[2019-11-24] MEDS: CLOTRIMAZOLE 1% 15 GM TUBE TP SCH ×3 (09:04→20:22)
--- NOTE | 2019-11-24 09:16 | NUR ---
AOLNDRA called [facility] [[address], [place] [address]; ] and spoke to Dalia from Medical records to obtain information regarding the patient medications. Per patients son, Hratch the pt. allegedly needs IV chemotherapy and Lupron injection every 3 months. Per Dalia, the patient did not receive stated treatments while residing at [facility]. Dalia stated the pt. was at [facility] prior to residing at their facility and might be able to provide ALONDRA with more information. ALONDRA called the pt.s daughter, Shae Snyder [phone] to inform her of above stated information. Shae expressed the pt. did not receive the treatments while residing at [facility] because the pt.s health was declining. Shae stated, in the condition that my father is in now, it might be more beneficial for him no to receive the treatments. Shae stated she will call Dr. Terrell from [facility] to get his professional opinion on the matter and will inform ALONDRA by next Wednesday, December 01, 2019. Noted.
--- NOTE | 2019-11-24 10:08 | NUR ---
Left a message to Marialuisa from Dr. Duncan's office to remind of monthly trach.
--- NOTE | 2019-11-24 12:30 | NUR ---
PETER Gonzalez came to assess tracheal wound, wound bed still moist and raw. no new changes in the current order. Continue with current treatment.
--- NOTE | 2019-11-24 15:54 | NUR ---
Resident seen and examined by Dr. Palafox, program director scouting with new order to Lotrimin cream due to Tinea Pedis. Orders carried out,
--- NOTE | 2019-11-24 15:59 | NUR ---
RT NOTE: RECEIVED PT ON 28% COOL AEROSOL CHAVA. NO RESPIRATORY DISTRESS NOTED. TRACH CHECKED SECURE AND PATENT. SXD AND LAVAGE PT Q ROUND AND NEEDED. . TRACH CARE DONE. SPARE TRACH, VENT, AND AMBU BAG @ BEDSIDE.
[2019-11-24 20:13] VITALS: BP 114/59
[2019-11-24] MEDS: ATORVASTATIN 10 MG TABLET GT SCH (20:21)
[2019-11-24] MEDS: TAMSULOSIN 0.4 MG CAP.SR.24H GT SCH (21:42)
[2019-11-25] MEDS: OMEPRAZOLE 20 MG CAPSULE.DR GT SCH ×2 (05:32→18:19)
[2019-11-25 08:18] VITALS: BP 106/52
[2019-11-25] MEDS: CLOTRIMAZOLE 1% 15 GM TUBE TP SCH ×4 (09:00→21:02)
[2019-11-25] MEDS: LOSARTAN POTASSIUM 50 MG TABLET GT SCH (09:00)
[2019-11-25] MEDS: VITAMINS A AND D 56.7 GM TUBE TP SCH ×2 (09:00→21:02)
[2019-11-25] MEDS: METOPROLOL TARTRATE 50 MG TABLET GT SCH ×2 (09:00→17:00)
[2019-11-25] MEDS: Z GUARD REMEDY 4 OZ OINT TP SCH ×2 (09:00→21:02)
[2019-11-25] MEDS: AMIODARONE HCL 200 MG TABLET GT SCH (09:35)
[2019-11-25] MEDS: LEVETIRACETAM SOL (5 ML) 100 MG/ML UDC GT SCH ×2 (09:35→21:02)
[2019-11-25] MEDS: PROSTAT (PYXIS) 30 ML UDC GT SCH ×3 (09:36→21:02)
[2019-11-25] MEDS: MULTIVIT W/MINERALS 1 TAB TABLET GT SCH (09:36)
[2019-11-25] MEDS: ACETAMINOPHEN 650 MG/20 ML UDC- SA PATIENTS-PAIN ONLY GT SCH ×2 (09:37→21:02)
[2019-11-25] MEDS: ASCORBIC ACID 500 MG TABLET GT SCH (09:37)
--- NOTE | 2019-11-25 11:54 | NUR ---
Monthly trach change done by Dr Salas. Pt tolerated procedure well. Minimal bleeding noted.
[2019-11-25] MEDS: TWOCAL HN 1,000 ML LIQUID GT PRN (18:21)
[2019-11-25 20:17] VITALS: BP 116/56
[2019-11-25] MEDS: ATORVASTATIN 10 MG TABLET GT SCH (21:02)
[2019-11-25] MEDS: TAMSULOSIN 0.4 MG CAP.SR.24H GT SCH (21:02)
[2019-11-26] MEDS: OMEPRAZOLE 20 MG CAPSULE.DR GT SCH ×2 (05:15→17:42)
[2019-11-26 07:51] VITALS: BP 112/55
[2019-11-26] MEDS: MULTIVIT W/MINERALS 1 TAB TABLET GT SCH (09:00)
[2019-11-26] MEDS: AMIODARONE HCL 200 MG TABLET GT SCH (09:00)
[2019-11-26] MEDS: LEVETIRACETAM SOL (5 ML) 100 MG/ML UDC GT SCH ×2 (09:00→20:25)
[2019-11-26] MEDS: PROSTAT (PYXIS) 30 ML UDC GT SCH ×3 (09:00→20:26)
[2019-11-26] MEDS: Z GUARD REMEDY 4 OZ OINT TP SCH ×2 (09:00→20:27)
[2019-11-26] MEDS: VITAMINS A AND D 56.7 GM TUBE TP SCH ×2 (09:00→20:27)
[2019-11-26] MEDS: ASCORBIC ACID 500 MG TABLET GT SCH (09:00)
[2019-11-26] MEDS: LOSARTAN POTASSIUM 50 MG TABLET GT SCH (09:00)
[2019-11-26] MEDS: ACETAMINOPHEN 650 MG/20 ML UDC- SA PATIENTS-PAIN ONLY GT SCH ×2 (09:00→20:27)
[2019-11-26] MEDS: CLOTRIMAZOLE 1% 15 GM TUBE TP SCH ×4 (09:00→20:27)
[2019-11-26] MEDS: METOPROLOL TARTRATE 50 MG TABLET GT SCH ×2 (09:00→17:00)
[2019-11-26] MEDS: TWOCAL HN 1,000 ML LIQUID GT PRN (18:09)
[2019-11-26 19:56] VITALS: BP 120/62
[2019-11-26] MEDS: ATORVASTATIN 10 MG TABLET GT SCH (20:25)
--- NOTE | 2019-11-26 21:00 | NUR ---
RN NOTES Seen and examined by Lora Treadwell NP, with NNO.
[2019-11-26] MEDS: TAMSULOSIN 0.4 MG CAP.SR.24H GT SCH (22:21)
[2019-11-27] MEDS: OMEPRAZOLE 20 MG CAPSULE.DR GT SCH ×2 (05:36→17:43)
[2019-11-27] MEDS: ASCORBIC ACID 500 MG TABLET GT SCH (09:00)
[2019-11-27] MEDS: VITAMINS A AND D 56.7 GM TUBE TP SCH ×2 (09:00→20:20)
[2019-11-27] MEDS: AMIODARONE HCL 200 MG TABLET GT SCH (09:00)
[2019-11-27] MEDS: ACETAMINOPHEN 650 MG/20 ML UDC- SA PATIENTS-PAIN ONLY GT SCH ×2 (09:00→20:19)
[2019-11-27] MEDS: MULTIVIT W/MINERALS 1 TAB TABLET GT SCH (09:00)
[2019-11-27] MEDS: LEVETIRACETAM SOL (5 ML) 100 MG/ML UDC GT SCH ×2 (09:00→20:18)
[2019-11-27] MEDS: CLOTRIMAZOLE 1% 15 GM TUBE TP SCH ×4 (09:00→20:19)
[2019-11-27] MEDS: LOSARTAN POTASSIUM 50 MG TABLET GT SCH (09:00)
[2019-11-27] MEDS: Z GUARD REMEDY 4 OZ OINT TP SCH ×2 (09:00→20:20)
[2019-11-27] MEDS: METOPROLOL TARTRATE 50 MG TABLET GT SCH ×2 (09:00→17:00)
[2019-11-27] MEDS: PROSTAT (PYXIS) 30 ML UDC GT SCH ×3 (09:00→20:19)
[2019-11-27 10:38] VITALS: BP 106/56
--- NOTE | 2019-11-27 17:00 | NUR ---
Seen and examined by Dr. Fernandes, no new order given.
[2019-11-27 19:52] VITALS: BP 99/56
[2019-11-27] MEDS: ATORVASTATIN 10 MG TABLET GT SCH (20:18)
[2019-11-27] MEDS: TAMSULOSIN 0.4 MG CAP.SR.24H GT SCH (21:28)
[2019-11-28] MEDS: OMEPRAZOLE 20 MG CAPSULE.DR GT SCH ×2 (05:26→17:15)
[2019-11-28] MEDS: TWOCAL HN 1,000 ML LIQUID GT PRN (06:06)
[2019-11-28] MEDS: ASCORBIC ACID 500 MG TABLET GT SCH (09:00)
[2019-11-28] MEDS: PROSTAT (PYXIS) 30 ML UDC GT SCH ×3 (09:00→20:20)
[2019-11-28] MEDS: METOPROLOL TARTRATE 50 MG TABLET GT SCH ×2 (09:00→17:00)
[2019-11-28] MEDS: LOSARTAN POTASSIUM 50 MG TABLET GT SCH (09:00)
[2019-11-28] MEDS: MULTIVIT W/MINERALS 1 TAB TABLET GT SCH (09:00)
[2019-11-28] MEDS: VITAMINS A AND D 56.7 GM TUBE TP SCH ×2 (09:00→20:21)
[2019-11-28] MEDS: Z GUARD REMEDY 4 OZ OINT TP SCH ×2 (09:00→20:20)
[2019-11-28] MEDS: CLOTRIMAZOLE 1% 15 GM TUBE TP SCH ×4 (09:00→20:20)
[2019-11-28] MEDS: ACETAMINOPHEN 650 MG/20 ML UDC- SA PATIENTS-PAIN ONLY GT SCH ×2 (09:00→20:20)
[2019-11-28] MEDS: LEVETIRACETAM SOL (5 ML) 100 MG/ML UDC GT SCH ×2 (09:00→20:19)
[2019-11-28] MEDS: AMIODARONE HCL 200 MG TABLET GT SCH (09:00)
--- NOTE | 2019-11-28 10:42 | NUR ---
Family Invitation to IDT meeting: ALONDRA called the patients daughter Sahe Snyder [phone] to invite them to the Plan of Care Conference taking place 12/01/2019 between 12:30pm-1:30pm. The call went to voicemail and ALONDRA left detailed message with SW call back number.
[2019-11-28 11:55] VITALS: BP 139/80
--- NOTE | 2019-11-28 17:30 | NUR ---
RT NOTE RECEIVED PATIENT WITH TRACH ON COOL AEROSOL. TRACH IS PATENT AND SECURED. SPARE TRACH AND BVM IS AT BEDSIDE. PATIENT HAS EQUAL CHEST RISE WITH COARSE BILATERAL BREATH SOUNDS. SUCTION MODERATE AMOUNT OF GREEN THICK SECRETIONS THROUGH OUT THE DAY. Addendum: 11/28/19 at 1731 by MAY HEAD RT Amended: Links added.
[2019-11-28 20:17] VITALS: BP 110/55
[2019-11-28] MEDS: ATORVASTATIN 10 MG TABLET GT SCH (20:20)
[2019-11-28] MEDS: TAMSULOSIN 0.4 MG CAP.SR.24H GT SCH (21:11)
[2019-11-29] MEDS: TWOCAL HN 1,000 ML LIQUID GT PRN (05:16)
[2019-11-29] MEDS: OMEPRAZOLE 20 MG CAPSULE.DR GT SCH ×2 (05:17→17:46)
[2019-11-29 07:58] VITALS: BP 110/60
[2019-11-29] MEDS: Z GUARD REMEDY 4 OZ OINT TP SCH ×2 (09:00→20:53)
[2019-11-29] MEDS: LOSARTAN POTASSIUM 50 MG TABLET GT SCH (09:00)
[2019-11-29] MEDS: CLOTRIMAZOLE 1% 15 GM TUBE TP SCH ×4 (09:00→20:53)
[2019-11-29] MEDS: METOPROLOL TARTRATE 50 MG TABLET GT SCH ×2 (09:00→17:46)
[2019-11-29] MEDS: VITAMINS A AND D 56.7 GM TUBE TP SCH ×2 (09:00→20:53)
[2019-11-29] MEDS: MULTIVIT W/MINERALS 1 TAB TABLET GT SCH (09:24)
[2019-11-29] MEDS: LEVETIRACETAM SOL (5 ML) 100 MG/ML UDC GT SCH ×2 (09:24→20:52)
[2019-11-29] MEDS: AMIODARONE HCL 200 MG TABLET GT SCH (09:24)
[2019-11-29] MEDS: PROSTAT (PYXIS) 30 ML UDC GT SCH ×3 (09:24→20:52)
[2019-11-29] MEDS: ASCORBIC ACID 500 MG TABLET GT SCH (09:25)
[2019-11-29] MEDS: ACETAMINOPHEN 650 MG/20 ML UDC- SA PATIENTS-PAIN ONLY GT SCH ×2 (09:25→20:53)
[2019-11-29 20:30] VITALS: BP 96/58
[2019-11-29] MEDS: ATORVASTATIN 10 MG TABLET GT SCH (20:52)
[2019-11-29] MEDS: TAMSULOSIN 0.4 MG CAP.SR.24H GT SCH (21:18)
[2019-11-30] MEDS: OMEPRAZOLE 20 MG CAPSULE.DR GT SCH ×2 (05:32→17:06)
[2019-11-30] MEDS: TWOCAL HN 1,000 ML LIQUID GT PRN (05:53)
[2019-11-30 08:05] VITALS: BP 110/59
[2019-11-30] MEDS: VITAMINS A AND D 56.7 GM TUBE TP SCH ×2 (09:00→20:29)
[2019-11-30] MEDS: Z GUARD REMEDY 4 OZ OINT TP SCH ×2 (09:00→20:29)
[2019-11-30] MEDS: CLOTRIMAZOLE 1% 15 GM TUBE TP SCH ×4 (09:00→20:29)
[2019-11-30] MEDS: AMIODARONE HCL 200 MG TABLET GT SCH (09:46)
[2019-11-30] MEDS: MULTIVIT W/MINERALS 1 TAB TABLET GT SCH (09:47)
[2019-11-30] MEDS: PROSTAT (PYXIS) 30 ML UDC GT SCH ×3 (09:47→20:28)
[2019-11-30] MEDS: ASCORBIC ACID 500 MG TABLET GT SCH (09:47)
[2019-11-30] MEDS: METOPROLOL TARTRATE 50 MG TABLET GT SCH ×2 (09:47→16:29)
[2019-11-30] MEDS: ACETAMINOPHEN 650 MG/20 ML UDC- SA PATIENTS-PAIN ONLY GT SCH ×2 (09:47→20:28)
[2019-11-30] MEDS: LEVETIRACETAM SOL (5 ML) 100 MG/ML UDC GT SCH ×2 (09:47→20:26)
[2019-11-30] MEDS: LOSARTAN POTASSIUM 50 MG TABLET GT SCH (09:47)
--- NOTE | 2019-11-30 10:41 | NUR ---
IDT DATE CHANGE NOTICE: ALONDRA left the pt.'s responsible democrat, Shae [phone] a voicemail informing her that the IDT will be held today between 12:30-1:30 pm and left ALONDRA call back number.
--- NOTE | 2019-11-30 14:39 | NUR ---
INTERDISCIPLINARY PLAN OF CARE CONFERENCE took place today. The patients Daughter, Shae Snyder [phone] participated via phone conference. Dr. Fernandes and Interdisciplinary team discussed the plan of care in detail. The IDT addressed all of the familys questions. Current orders as well as treatments and medications were reviewed. Charge nurse discussed the pt. has episode of hypotension on 11/20/2019 and the pt.s Blood Pressure medication: Norvasc was D/C; Pt. placed on cool aerosol on 11/20/2019 and tolerating well. Please see other disciplines IDT notes for further details.
[2019-11-30] MEDS: ATORVASTATIN 10 MG TABLET GT SCH (20:27)
[2019-11-30 20:39] VITALS: BP 101/52
[2019-11-30] MEDS: TAMSULOSIN 0.4 MG CAP.SR.24H GT SCH (21:45)
--- NOTE | 2019-12-01 05:28 | NUR ---
PATIENT RECEIVED ON 28% AEROSOL T-TUBE, TOLERATING WITH NO DISTRESS/SOB NOTED. SUCTIONED WITH LAVAGE FOR MINIMAL, THIN, YELLOW SECRETIONS. AMBU BAG AT BEDSIDE. PULSE OXIMETER ALARM AUDIBLE AND VISIBLE. TRACH CARE DONE. Addendum: 12/01/19 at 0529 by CROW MO RT Amended: Links added.
[2019-12-01] MEDS: TWOCAL HN 1,000 ML LIQUID GT PRN (05:33)
[2019-12-01] MEDS: OMEPRAZOLE 20 MG CAPSULE.DR GT SCH ×2 (05:33→18:34)
[2019-12-01 07:26] VITALS: BP 116/59
[2019-12-01] MEDS: CLOTRIMAZOLE 1% 15 GM TUBE TP SCH ×4 (09:00→21:00)
[2019-12-01] MEDS: LOSARTAN POTASSIUM 50 MG TABLET GT SCH (09:00)
[2019-12-01] MEDS: ACETAMINOPHEN 650 MG/20 ML UDC- SA PATIENTS-PAIN ONLY GT SCH ×2 (09:00→21:23)
[2019-12-01] MEDS: Z GUARD REMEDY 4 OZ OINT TP SCH ×2 (09:00→21:00)
[2019-12-01] MEDS: METOPROLOL TARTRATE 50 MG TABLET GT SCH ×2 (09:00→17:00)
[2019-12-01] MEDS: LEVETIRACETAM SOL (5 ML) 100 MG/ML UDC GT SCH ×2 (09:00→21:18)
[2019-12-01] MEDS: VITAMINS A AND D 56.7 GM TUBE TP SCH ×2 (09:00→21:00)
[2019-12-01] MEDS: ASCORBIC ACID 500 MG TABLET GT SCH (09:00)
[2019-12-01] MEDS: MULTIVIT W/MINERALS 1 TAB TABLET GT SCH (09:00)
[2019-12-01] MEDS: PROSTAT (PYXIS) 30 ML UDC GT SCH ×3 (09:00→21:18)
[2019-12-01] MEDS: AMIODARONE HCL 200 MG TABLET GT SCH (09:00)
[2019-12-01 20:03] VITALS: BP 101/60
[2019-12-01] MEDS: ATORVASTATIN 10 MG TABLET GT SCH (21:18)
[2019-12-01] MEDS: TAMSULOSIN 0.4 MG CAP.SR.24H GT SCH (21:23)
--- NOTE | 2019-12-02 05:35 | NUR ---
Patient had multiple soft to loose bowel movement,buttocks MASD noted,good perineal care provided and treatment obtained for Z guard and cover with Mepilex q shift x 30 days.
[2019-12-02] MEDS: TWOCAL HN 1,000 ML LIQUID GT PRN (06:19)
[2019-12-02] MEDS: OMEPRAZOLE 20 MG CAPSULE.DR GT SCH ×2 (06:58→17:55)
[2019-12-02 07:43] VITALS: BP 117/62
[2019-12-02] MEDS: AMIODARONE HCL 200 MG TABLET GT SCH (09:00)
[2019-12-02] MEDS: LOSARTAN POTASSIUM 50 MG TABLET GT SCH (09:00)
[2019-12-02] MEDS: ASCORBIC ACID 500 MG TABLET GT SCH (09:00)
[2019-12-02] MEDS: LEVETIRACETAM SOL (5 ML) 100 MG/ML UDC GT SCH ×2 (09:00→21:30)
[2019-12-02] MEDS: CLOTRIMAZOLE 1% 15 GM TUBE TP SCH ×4 (09:00→21:55)
[2019-12-02] MEDS: METOPROLOL TARTRATE 50 MG TABLET GT SCH ×2 (09:00→17:00)
[2019-12-02] MEDS: Z GUARD REMEDY 4 OZ OINT TP SCH ×4 (09:00→21:55)
[2019-12-02] MEDS: VITAMINS A AND D 56.7 GM TUBE TP SCH ×2 (09:00→21:55)
[2019-12-02] MEDS: PROSTAT (PYXIS) 30 ML UDC GT SCH ×3 (09:00→21:30)
[2019-12-02] MEDS: ACETAMINOPHEN 650 MG/20 ML UDC- SA PATIENTS-PAIN ONLY GT SCH ×2 (09:00→21:30)
[2019-12-02] MEDS: MULTIVIT W/MINERALS 1 TAB TABLET GT SCH (09:00)
[2019-12-02 20:15] VITALS: BP 109/80
[2019-12-02] MEDS: ATORVASTATIN 10 MG TABLET GT SCH (21:30)
[2019-12-02] MEDS: TAMSULOSIN 0.4 MG CAP.SR.24H GT SCH (22:12)
[2019-12-03] MEDS: TWOCAL HN 1,000 ML LIQUID GT PRN ×3 (00:16→18:20)
[2019-12-03] MEDS: OMEPRAZOLE 20 MG CAPSULE.DR GT SCH ×2 (05:35→17:11)
[2019-12-03 07:31] VITALS: BP 107/61
[2019-12-03] MEDS: CLOTRIMAZOLE 1% 15 GM TUBE TP SCH ×4 (09:00→20:35)
[2019-12-03] MEDS: LOSARTAN POTASSIUM 50 MG TABLET GT SCH (09:00)
[2019-12-03] MEDS: PROSTAT (PYXIS) 30 ML UDC GT SCH ×3 (09:00→20:33)
[2019-12-03] MEDS: METOPROLOL TARTRATE 50 MG TABLET GT SCH ×2 (09:00→17:00)
[2019-12-03] MEDS: AMIODARONE HCL 200 MG TABLET GT SCH (09:00)
[2019-12-03] MEDS: VITAMINS A AND D 56.7 GM TUBE TP SCH ×2 (09:00→20:35)
[2019-12-03] MEDS: MULTIVIT W/MINERALS 1 TAB TABLET GT SCH (09:00)
[2019-12-03] MEDS: LEVETIRACETAM SOL (5 ML) 100 MG/ML UDC GT SCH ×2 (09:00→20:31)
[2019-12-03] MEDS: Z GUARD REMEDY 4 OZ OINT TP SCH ×4 (09:00→20:35)
[2019-12-03] MEDS: ASCORBIC ACID 500 MG TABLET GT SCH (09:00)
[2019-12-03] MEDS: ACETAMINOPHEN 650 MG/20 ML UDC- SA PATIENTS-PAIN ONLY GT SCH ×2 (09:00→20:34)
--- NOTE | 2019-12-03 14:38 | NUR ---
RT NOTE TITRATED FIO2 TO 28% PATIENT SPO2 IS 98%. HR 93 AND RR 20. Addendum: 12/03/19 at 1439 by MAY HEAD RT Amended: Links added.
--- NOTE | 2019-12-03 16:59 | NUR ---
RT NOTE RECEIVED PATIENT WITH TRACH ON COOL AEROSOL. TRACH IS PATENT AND SECURED. SPARE TRACH AND BVM IS AT BEDSIDE. PATIENT HAS EQUAL CHEST RISE WITH COARSE BILATERAL BREATH SOUNDS. SUCTION MODERATE AMOUNT OF YELLOW/PINK TINGED THICK SECRETIONS THROUGH OUT THE DAY. Addendum: 12/03/19 at 1700 by MAY HEAD RT Amended: Links added.
[2019-12-03 20:07] VITALS: BP 97/64
[2019-12-03] MEDS: ATORVASTATIN 10 MG TABLET GT SCH (20:33)
--- NOTE | 2019-12-03 20:59 | NUR ---
RT NOTE PT RECEIVED TRACHED ON COOL AEROSOL @ 35%. AMBU BAG/BACK UP TRACH @ BEDSIDE. SX DONE, TRACH SECURED AND PATENT. ALARMS ON AND AUDIBLE. WATER LEVEL GOOD. NO DISTRESS NOTED AT THIS TIME. WILL CONTINUE TO MONITOR. CONT. PULSE OX CONNECTED. Addendum: 12/03/19 at 2100 by MERCEDES SALGUERO RT Amended: Links added.
[2019-12-03] MEDS: TAMSULOSIN 0.4 MG CAP.SR.24H GT SCH (22:50)
[2019-12-04] MEDS: OMEPRAZOLE 20 MG CAPSULE.DR GT SCH ×2 (05:36→17:59)
[2019-12-04] MEDS: CLOTRIMAZOLE 1% 15 GM TUBE TP SCH ×4 (09:00→20:46)
[2019-12-04] MEDS: Z GUARD REMEDY 4 OZ OINT TP SCH ×4 (09:00→20:47)
[2019-12-04] MEDS: VITAMINS A AND D 56.7 GM TUBE TP SCH ×2 (09:00→20:47)
[2019-12-04] MEDS: AMIODARONE HCL 200 MG TABLET GT SCH (09:05)
[2019-12-04] MEDS: LEVETIRACETAM SOL (5 ML) 100 MG/ML UDC GT SCH ×2 (09:06→20:45)
[2019-12-04] MEDS: LOSARTAN POTASSIUM 50 MG TABLET GT SCH (09:06)
[2019-12-04] MEDS: PROSTAT (PYXIS) 30 ML UDC GT SCH ×3 (09:07→20:45)
[2019-12-04] MEDS: MULTIVIT W/MINERALS 1 TAB TABLET GT SCH (09:07)
[2019-12-04] MEDS: METOPROLOL TARTRATE 50 MG TABLET GT SCH ×2 (09:07→17:00)
[2019-12-04] MEDS: ASCORBIC ACID 500 MG TABLET GT SCH (09:08)
[2019-12-04] MEDS: ACETAMINOPHEN 650 MG/20 ML UDC- SA PATIENTS-PAIN ONLY GT SCH ×2 (09:08→20:46)
--- NOTE | 2019-12-04 10:00 | NUR ---
Pt noted with purplish discoloration on his nose, no swelling noted. Pt does not appear to be in pain.
[2019-12-04 10:15] VITALS: BP 118/71
--- NOTE | 2019-12-04 12:15 | NUR ---
Notified Dr Pierre that pt's BP 80/42 HR 94. Pt on Metoprolol 50 mg GT BID, Cordaron 200 mg GT daily, Cozaar 50 mg GT daily. Placed on Trendelenburg with GT feeding off. Dr Pierre ordered to MARI Miramontes.
--- NOTE | 2019-12-04 12:45 | NUR ---
Pt seen by EMMANUEL Treadwell. She ordered to do CBC BMP CXR UA. She also ordered to place pt on AC 12 VT 450 FiO2 30% since pt is tachypneic. EMMANUEL Treadwell ordered to give NS 500 mL IV bolus and may repeat x 1 more if BP low. Addendum: 12/04/19 at 1804 by SHADY LOCKHART RN EMMANUEL Treadwell ordered labs STAT. Informed Dr Pierre.
--- NOTE | 2019-12-04 12:47 | NUR ---
Notified Dr Pierre that pt's BP 77/35 HR 94 while on Trendelenburg position. He ordered to give NS 500 mL IV bolus x 1.
--- NOTE | 2019-12-04 13:00 | NUR ---
Asked Dr Pierre if he wanted to decrease the dose of Metoprolol. He said no because of pt's high heart rate.
--- NOTE | 2019-12-04 13:00 | NUR ---
Started infusing NS 500 mL IV bolus.
--- NOTE | 2019-12-04 13:20 | NUR ---
RT NOTE Pt placed back on vent on AC mode due to hypotension and an increased wob per STULL HEWER Marcie Ceron. Charge nurse Drea hodge. Addendum: 12/04/19 at 1808 by VIK CELAYA RT Amended: Links added.
[2019-12-04 13:59] LABS: BASOPHILS # (AUTO) 0.1 /CMM (0.0-0.2); BASOPHILS % (AUTO) 0.6 % (0.0-2.0); EOSINOPHILS % (AUTO) 0.5 % (0.0-6.0); HEMATOCRIT 23 % (39-51); HEMOGLOBIN 7.6 g/dL (13.5-17.5); LYMPHOCYTES # (AUTO) 0.8 /CMM (0.8-4.8); LYMPHOCYTES % (AUTO) 8.2 % (20.0-44.0); MEAN CORPUSCULAR HGB CONC 33 g/dl (31.0-36.0); MEAN CORPUSCULAR VOLUME 86 fL (80-96); MONOCYTES # (AUTO) 0.7 /CMM (0.1-1.30); MONOCYTES % (AUTO) 7.3 % (2.0-12.0); NEUTROPHILS # (AUTO) 8.3 /CMM (1.8-8.9); NEUTROPHILS % (AUTO) 83.4 % (43.0-81.0); PLATELET COUNT (AUTO) 308 /CMM (150-450); RED BLOOD CELL COUNT(AUTO) 2.67 MIL/uL (4.5-6.0)
[2019-12-04] MEDS ORDERED: IV NS 0.9% 500 ML IV ONE (14:30)
--- NOTE | 2019-12-04 14:30 | NUR ---
NS 500 mL IV bolus was given and BP improved to 104/47 HR 98. When BP was rechecked half hour after bolus, BP 91/56 HR 95. Another bolus of 500 mL was given as ordered. Addendum: 12/04/19 at 1722 by SHADY LOCKHART RN Pt's HOB elevated and GT feeding was resumed once BP improved. Kept HOB elevated while administering second bolus.
--- NOTE | 2019-12-04 15:30 | NUR ---
Rechecked pt's BP after another 500 mL of NS bolus was given. BP 119/70 HR 94.
--- NOTE | 2019-12-04 15:45 | NUR ---
Relayed CXR and CBC results to EMMANUEL Treadwell. No new order.
[2019-12-04 17:57] LABS: CALCIUM, SERUM 8.6 mg/dL (8.5-10.1); CARBON DIOXIDE 25 mmol/L (21-32); CHLORIDE 114 mmol/L (98-107); CREATININE 1.8 mg/dL (0.6-1.3); GLUCOSE 128 mg/dL (74-106); POTASSIUM 4.5 mmol/L (3.5-5.1); SODIUM SERUM 154 mmol/L (136-145)
--- NOTE | 2019-12-04 18:00 | NUR ---
Informed pt's son of hypotension and new orders. Son appreciated call.
[2019-12-04 18:24] LABS: UREA NITROGEN, BLOOD 81 mg/dL (7-18)
--- NOTE | 2019-12-04 18:40 | NUR ---
Notified EMMANULE Treadwell that Na 154 BUN 81 Cr 1.8.
[2019-12-04 19:49] LABS: APPEARANCE,URINE SL CLOUDY (CLEAR); BILIRUBIN,URINE NEGATIVE (NEGATIVE); BLOOD, URINE NEGATIVE Ery/uL (NEGATIVE); COLOR,URINE YELLOW (YELLOW); KETONES,URINE NEGATIVE (NEGATIVE); LEUKOCYTE ESTERASE ,URINE MODERATE (NEGATIVE); NITRITE, URINE NEGATIVE (NEGATIVE); PROTEIN,URINE 30 mg/dl (NEGATIVE); UGLUCOSE NEGATIVE (NEGATIVE)
[2019-12-04 19:56] VITALS: BP 101/57
[2019-12-04 20:05] LABS: BACTERIA,URINE Many /HPF (None Seen); SQUAMOUS EPITHELIAL CELL,UR Few /HPF (None Seen)
[2019-12-04 20:06] LABS: RBC,URINE 0-2 /HPF (0-2)
[2019-12-04] MEDS: ATORVASTATIN 10 MG TABLET GT SCH (20:45)
--- NOTE | 2019-12-04 20:45 | NUR ---
RN NOTES Received new order from Lora Treadwell NP, for 1/2 NS @70ml/hr, noted and carried out. Started 1/2 NS as ordered. Started from ekit.
[2019-12-04] MEDS: TAMSULOSIN 0.4 MG CAP.SR.24H GT SCH (21:18)
--- NOTE | 2019-12-05 03:30 | NUR ---
RT NOTE Late Entry: Upon arrival, Pt's captain/airline pilot balloon was ruptured and unable to increase cuff pressure. Trach tube change successfully completed. Pt able to maintain adequate volumes. Pt shows no signs of resp distress or sob. B/S are clear bilaterally. Ambu bag and emergency spare trach is bedside. Will continue to monitor closely. transfer controller aware. Addendum: 12/05/19 at 0552 by BERNY VILLAGOMEZ RT Amended: Links added.
[2019-12-05] MEDS: TWOCAL HN 1,000 ML LIQUID GT PRN ×2 (05:22→23:25)
[2019-12-05] MEDS: OMEPRAZOLE 20 MG CAPSULE.DR GT SCH ×2 (05:22→17:21)
[2019-12-05] MEDS: AMIODARONE HCL 200 MG TABLET GT SCH (08:52)
[2019-12-05] MEDS: LEVETIRACETAM SOL (5 ML) 100 MG/ML UDC GT SCH ×2 (08:52→20:24)
[2019-12-05] MEDS: ASCORBIC ACID 500 MG TABLET GT SCH (08:53)
[2019-12-05] MEDS: PROSTAT (PYXIS) 30 ML UDC GT SCH ×3 (08:53→20:26)
[2019-12-05] MEDS: ACETAMINOPHEN 650 MG/20 ML UDC- SA PATIENTS-PAIN ONLY GT SCH ×2 (08:53→20:26)
[2019-12-05] MEDS: MULTIVIT W/MINERALS 1 TAB TABLET GT SCH (08:53)
[2019-12-05] MEDS: METOPROLOL TARTRATE 50 MG TABLET GT SCH ×2 (08:53→17:21)
[2019-12-05] MEDS: CLOTRIMAZOLE 1% 15 GM TUBE TP SCH ×4 (09:00→20:26)
[2019-12-05] MEDS: VITAMINS A AND D 56.7 GM TUBE TP SCH (09:00)
[2019-12-05] MEDS: Z GUARD REMEDY 4 OZ OINT TP SCH ×3 (09:00→20:27)
[2019-12-05 10:58] VITALS: BP 122/52
--- NOTE | 2019-12-05 11:02 | NUR ---
Family invitation to [facility] and IDT: SW called and spoke to the pt.s Daughter, Shae Snyder [phone] to invite her to the [facility] on 12/13/2019 11 am and the next IDT meeting on 12/15/2019 12:30 pm. Per Shae, she will not be able to attend support group but would like to participate in IDT meeting via phone conference. Noted.
--- NOTE | 2019-12-05 11:04 | NUR ---
ALONDRA called the pt.s Daughter, Shae Snyder [phone] to get update on pt.'s "Lupron Injection and IV chemotherapy" that the pt.'s son, Aba stated the pt. allegedly required. Per Shae she left the pt.'s PCP, Dr. Terrell a voicemail and will also speak to to see if pt. would benefit from continuing this treatment. ALONDRA informed community fundraiser.
[2019-12-05] MEDS: IV 1/2NS 1000 ML 1,000 ML IV PRN (11:56)
--- NOTE | 2019-12-05 14:50 | NUR ---
RT PT ON MECH VENT TRACH POSITIONAL UPON TRACH CARE PT WASNT GETTING ADEQUATE VOLUME AND HIGH PEAK PRESSURES, DEFLATED CUFFED AND REPOSITION TRACH TUBE AND TIGHTENED TRACH TIE TO RECEIVE PROPER VOLUME AND NORMAL PEAK PRESSURES TRACH INTACT SECURED PROGRAM MANAGEMENT MANAGER DONE WILL CONT TO MONITOR , PT POSSIBLY NEEDS SHILEY XLT
--- NOTE | 2019-12-05 19:30 | NUR ---
SUB ACUTE NURSES NOTES: ELEVATED TEMP. PT RECEIVED FROM THE MORNING SHIFT WITH ELEVATED TEMPERATURE OF 102.9, COOLING MEASURE STARTED RIGHT AWAY, TYLENOL 650 MG GIVEN AND PT IS FLUSHED WITH COOLED WATER, CHARGE NURSE GOT AN ORDER TO START ATB THERAPHY AND PT TEMP WAS ZAHRAA IN AN HOUR, IT WAS STILL ELEVATED, COOLING MEASURE CONTINUED AND MONITOR PT, @ AROUND 2100 PT TEMP WAS RE CK AGAIN, ORALLY, IT WAS 98.0, COOLING MEASURE DC'D AND CONTINUE TO MONITOR PT FOR ELEVATED TEMP.
--- NOTE | 2019-12-05 20:00 | NUR ---
RN NOTES Pt noted with fever 102.9. B/P 108/80, HR 115, RR 30, O2 sat 98%. Called Dr. Pierre to notify and received new order for CBC, BMP, CXR, BC x2, Sputum c/s, Zosyn 2.25gm IVPB Q6hr x5 days (per protocol), Vancomycin pharm to dose. Orders noted and carried out. Will continue to monitor closely.
--- NOTE | 2019-12-05 20:03 | NUR ---
RT NOTE PT RECEIVED TRACHED ON MECHANICAL VENTILATION. AMBU BAG/BACK UP TRACH @ BEDSIDE. SX DONE, TRACH SECURED AND PATENT. VENT PLUGGED TO RED OUTLET. ALARMS ON AND AUDIBLE. NO DISTRESS NOTED. WILL MONITOR T/O SHIFT. Addendum: 12/06/19 at 0320 by MERCEDES SALGUERO RT Amended: Links added.
[2019-12-05 20:22] VITALS: BP 108/80
[2019-12-05] MEDS: ATORVASTATIN 10 MG TABLET GT SCH (20:24)
--- NOTE | 2019-12-05 20:45 | NUR ---
RN NOTES Received new order for Vancomycin 1gm IVPB Q24hr, vanco trough before 3rd dose on 01/05/20 @2130 + BUN/CR, noted and carried out.
[2019-12-05] MEDS ORDERED: ZOSYN IVPB 2.25 G in IV D5W 50ml IV ONE (21:00)
[2019-12-05] MEDS ORDERED: ZOSYN IVPB 2.25 G in IV D5W 50ml IV SCH (21:00)
[2019-12-05] MEDS: TAMSULOSIN 0.4 MG CAP.SR.24H GT SCH (21:07)
[2019-12-05 21:26] LABS: BASOPHILS % (AUTO) 0.3 % (0.0-2.0); EOSINOPHILS % (AUTO) 0.3 % (0.0-6.0); HEMATOCRIT 23 % (39-51); HEMOGLOBIN 7.5 g/dL (13.5-17.5); LYMPHOCYTES # (AUTO) 0.7 /CMM (0.8-4.8); LYMPHOCYTES % (AUTO) 6.2 % (20.0-44.0); MEAN CORPUSCULAR HGB CONC 33 g/dl (31.0-36.0); MEAN CORPUSCULAR VOLUME 87 fL (80-96); MONOCYTES # (AUTO) 0.6 /CMM (0.1-1.30); MONOCYTES % (AUTO) 5.2 % (2.0-12.0); NEUTROPHILS # (AUTO) 9.8 /CMM (1.8-8.9); PLATELET COUNT (AUTO) 329 /CMM (150-450); RED BLOOD CELL COUNT(AUTO) 2.64 MIL/uL (4.5-6.0); WHITE BLOOD COUNT (AUTO) 11.1 K/uL (4.3-11.0)
[2019-12-05 21:32] LABS: CALCIUM, SERUM 8.6 mg/dL (8.5-10.1); CREATININE 1.3 mg/dL (0.6-1.3); POTASSIUM 4.1 mmol/L (3.5-5.1)
[2019-12-05] MEDS ORDERED: VANCOMYCIN 1 GM in IV D5W 250ml IV SCH (22:00)
[2019-12-06] MEDS: IV 1/2NS 1000 ML 1,000 ML IV PRN ×2 (03:30→20:08)
--- NOTE | 2019-12-06 04:30 | NUR ---
RN NOTES Trach tube changed by RT on duty d/t defective cuff, tolerated well. RN at bedside. No bleeding noted.
--- NOTE | 2019-12-06 04:30 | NUR ---
RT NOTE PT NOTED TO HAVE A DEFECTIVE CUFF. EMERGENCY TRACH CHANGE PERFORMED WITH RN @ BEDSIDE. TRESSA [address] WITH CUFF INFLATED VIA CLINICAL REVIEWER. PT RECEIVING ADEQUATE VOLUMES. SX DONE, TRACH SECURED AND PATENT. CONT. PULSE OX CONNECTED. NO DISTRESS NOTED.
--- NOTE | 2019-12-06 04:59 | NUR ---
RT NOTE PT TRACH SECURED AND PATENT. CUFF INFLATED VIA AREA FIELD MANAGER. PT RECEIVING ADEQUATE VOLUMES ON VENT. CONT. PULSE OX CONNECTED.
[2019-12-06] MEDS: ZOSYN IVPB 2.25 G in IV D5W 50ml IV SCH ×3 (05:00→18:25)
[2019-12-06] MEDS: OMEPRAZOLE 20 MG CAPSULE.DR GT SCH ×2 (05:34→18:25)
[2019-12-06 07:28] VITALS: BP 143/93
[2019-12-06 07:52] LABS: CREATININE 1.3 mg/dL (0.6-1.3)
[2019-12-06] MEDS: ACETAMINOPHEN 650 MG/20 ML UDC- SA PATIENTS-PAIN ONLY GT SCH ×2 (09:00→21:23)
[2019-12-06] MEDS: ASCORBIC ACID 500 MG TABLET GT SCH (09:00)
[2019-12-06] MEDS: MULTIVIT W/MINERALS 1 TAB TABLET GT SCH (09:00)
[2019-12-06] MEDS: Z GUARD REMEDY 4 OZ OINT TP SCH ×2 (09:00→21:23)
[2019-12-06] MEDS: AMIODARONE HCL 200 MG TABLET GT SCH (09:00)
[2019-12-06] MEDS: CLOTRIMAZOLE 1% 15 GM TUBE TP SCH ×4 (09:00→21:23)
[2019-12-06] MEDS: METOPROLOL TARTRATE 50 MG TABLET GT SCH ×2 (09:00→17:00)
[2019-12-06] MEDS: PROSTAT (PYXIS) 30 ML UDC GT SCH ×3 (09:00→21:22)
[2019-12-06] MEDS: LEVETIRACETAM SOL (5 ML) 100 MG/ML UDC GT SCH ×2 (09:00→21:22)
--- NOTE | 2019-12-06 09:43 | NUR ---
Seen and examined by Dr. Fernandes, checked trach tube, per RT patient wasn't getting enough volume they believed that his trach tube is short. Dr. Fernandes gave order to change trach tube to Shiley 8 XLT, cuffed.
--- NOTE | 2019-12-06 10:40 | NUR ---
Urine culture relayed to Dr. Pierre, no new order given.
--- NOTE | 2019-12-06 11:20 | NUR ---
RT NOTE MD ORDER TRACH TUBE CHANGE DONE,CHANGED TO A SHILEY 8 XLT DISTAL DUE TO LOW VOLUMES, PT CHAVA PROCEDURE WELL BOTH CHARGE NURSE AND MED NURSE MADE AWARE, NO BLEEDING NOTED WILL CONTINUE TO MONITOR T/O SHIFT
--- NOTE | 2019-12-06 17:22 | NUR ---
Patient's son Mr. Aba Flannery informed regarding changing the trach tube to longer trach from Shiley 8 to Shiley 8 XLT, cuffed. Appreciated the call.
[2019-12-06 20:24] VITALS: BP 99/81
[2019-12-06] MEDS: ATORVASTATIN 10 MG TABLET GT SCH (21:22)
[2019-12-06] MEDS: TAMSULOSIN 0.4 MG CAP.SR.24H GT SCH (21:23)
[2019-12-06] MEDS ORDERED: VANCOMYCIN 1 GM in IV D5W 250ml IV SCH (22:00)
[2019-12-07] MEDS: TWOCAL HN 1,000 ML LIQUID GT PRN ×2 (03:20→22:42)
[2019-12-07] MEDS: OMEPRAZOLE 20 MG CAPSULE.DR GT SCH ×2 (05:47→17:22)
[2019-12-07] MEDS: ZOSYN IVPB 2.25 G in IV D5W 50ml IV SCH ×4 (06:03→12:00)
--- NOTE | 2019-12-07 06:28 | NUR ---
Patient stable during the night afebrile,no distress noted/ Iv antibiotics given as ordered.Kept comfortable.
[2019-12-07 07:20] LABS: CALCIUM, SERUM 8.1 mg/dL (8.5-10.1); CREATININE 1.2 mg/dL (0.6-1.3); POTASSIUM 4.1 mmol/L (3.5-5.1)
[2019-12-07 07:48] VITALS: BP 106/58
[2019-12-07] MEDS: METOPROLOL TARTRATE 50 MG TABLET GT SCH ×2 (09:00→16:18)
[2019-12-07] MEDS: LEVETIRACETAM SOL (5 ML) 100 MG/ML UDC GT SCH ×2 (09:39→21:44)
[2019-12-07] MEDS: MULTIVIT W/MINERALS 1 TAB TABLET GT SCH (09:39)
[2019-12-07] MEDS: PROSTAT (PYXIS) 30 ML UDC GT SCH ×3 (09:39→21:44)
[2019-12-07] MEDS: AMIODARONE HCL 200 MG TABLET GT SCH (09:39)
[2019-12-07] MEDS: ACETAMINOPHEN 650 MG/20 ML UDC- SA PATIENTS-PAIN ONLY GT SCH ×2 (09:40→21:45)
[2019-12-07] MEDS: CLOTRIMAZOLE 1% 15 GM TUBE TP SCH ×3 (09:40→21:45)
[2019-12-07] MEDS: ASCORBIC ACID 500 MG TABLET GT SCH (09:40)
[2019-12-07] MEDS: Z GUARD REMEDY 4 OZ OINT TP SCH ×2 (09:40→21:45)
--- NOTE | 2019-12-07 15:25 | NUR ---
Seen by EMMANUEL Treadwell. She reviewed pt's lab results. Received order to DC Zosyn and Vancomycin, start Rocephin 1 gm IV q 24 hours x 7 days for UTI. EMMANUEL Treadwell said she spoke with Dr Fernandes who said that pt does not have pneumonia based on CXR. Notified pt's son. Addendum: 12/07/19 at 1556 by SHADY LOCKHART RN EMMANUEL Treadwell also ordered to continue 1/2 NS at 70 mL /hr for 72 hours, BMP on 12/11/19.
--- NOTE | 2019-12-07 15:41 | NUR ---
RT PT RECEIVED TRACH'D ON MECHANICAL VENT WITH SETTINGS PER MD ORDER. MANAGER ONCOLOGY DONE. VENT PLUGGED INTO RED OUTLET. SPARE TRACH AND AMBU BAG AT BEDSIDE. VENT ALARMS ON AND WORKING PROPERLY. TRACH SECURED AND PATENT. TRACH CARE DONE. NO SOB NOTED. WILL CONTINUE TO MONITOR THE PATIENT FOR ANY CHANGES. Addendum: 12/07/19 at 1720 by KRISTINE MULLIGAN RT Amended: Links added.
[2019-12-07] MEDS: CEFTRIAXONE 1 G in IV D5W 50 ML IV SCH (17:00)
[2019-12-07 19:42] VITALS: BP 111/52
--- NOTE | 2019-12-07 20:03 | NUR ---
RT NOTES PT RECEIVED TRACHED ON [facility] VENT ON CHARTED SETTINGS. NO SIGNS OF RESP DISTRESS NOTED AT THIS TIME. AIRWAY PATENT AND SECURED. MODELER DONE. PT SUCTIONED. HHN TX GIVEN. NO ADVERSE REACTIONS NOTED. AMBUBAG AND SPARE TRACH PRESENT. VENT CONNECTED TO RED OUTLET. WILL CONT TO MONITOR. Addendum: 12/07/19 at 2246 by NITIN CEDENO RT Amended: Links added.
[2019-12-07] MEDS: ATORVASTATIN 10 MG TABLET GT SCH (21:44)
[2019-12-07] MEDS: TAMSULOSIN 0.4 MG CAP.SR.24H GT SCH (21:45)
[2019-12-08] MEDS: IV 1/2NS 1000 ML 1,000 ML IV PRN ×2 (03:50→19:07)
[2019-12-08] MEDS: OMEPRAZOLE 20 MG CAPSULE.DR GT SCH ×2 (05:59→17:51)
[2019-12-08 07:55] VITALS: BP 124/59
[2019-12-08] MEDS: AMIODARONE HCL 200 MG TABLET GT SCH (09:09)
[2019-12-08] MEDS: LEVETIRACETAM SOL (5 ML) 100 MG/ML UDC GT SCH ×2 (09:10→20:43)
[2019-12-08] MEDS: METOPROLOL TARTRATE 50 MG TABLET GT SCH ×2 (09:11→16:55)
[2019-12-08] MEDS: PROSTAT (PYXIS) 30 ML UDC GT SCH ×3 (09:11→20:48)
[2019-12-08] MEDS: CLOTRIMAZOLE 1% 15 GM TUBE TP SCH ×2 (09:12→20:44)
[2019-12-08] MEDS: Z GUARD REMEDY 4 OZ OINT TP SCH ×2 (09:12→20:44)
[2019-12-08] MEDS: ASCORBIC ACID 500 MG TABLET GT SCH (09:12)
[2019-12-08] MEDS: ACETAMINOPHEN 650 MG/20 ML UDC- SA PATIENTS-PAIN ONLY GT SCH ×2 (09:12→20:44)
[2019-12-08] MEDS: MULTIVIT W/MINERALS 1 TAB TABLET GT SCH (09:14)
[2019-12-08] MEDS: CEFTRIAXONE 1 G in IV D5W 50 ML IV SCH (16:02)
--- NOTE | 2019-12-08 18:12 | NUR ---
RT NOTE RECEIVED PATIENT ON TRACH WITH MECHANICAL VENTILATOR. TRACH IS PATENT AND SECURED. SPARE TRACH AND BVM IS AT BEDSIDE. ALARMS ARE SET AND AUDIBLE. VENTILATOR IS PLUGGED TO RED OUTLET. PATIENT HAS EQUAL CHEST RISE WITH COARSE BILATERAL BREATH SOUNDS. SUCTION MODERATE AMOUNT OF THIN WHITE SECRETIONS THROUGH OUT THE DAY. PATIENT IS IN SYNC AND COMFORTABLE ON THE VENTILATOR. Addendum: 12/08/19 at 1813 by MAY HEAD RT Amended: Links added.
--- NOTE | 2019-12-08 19:28 | NUR ---
PT RECEIVED TRACHED ON [facility] VENT ON CHARTED SETTINGS. NO SIGNS OF RESP DISTRESS NOTED AT THIS TIME. AIRWAY PATENT AND SECURED. PICTURE ENLARGER DONE. PT SUCTIONED. ALARMS SET AND AUDIBLE. AMBUBAG AND SPARE TRACH AT BEDSIDE. VENT CONNECTED TO RED OUTLET. WILL CONT TO MONITOR Addendum: 12/08/19 at 1929 by BENIGNO RAMIREZ RT Amended: Links added.
[2019-12-08 20:12] VITALS: BP 122/66
[2019-12-08] MEDS: ATORVASTATIN 10 MG TABLET GT SCH (20:43)
[2019-12-08] MEDS: TAMSULOSIN 0.4 MG CAP.SR.24H GT SCH (22:37)
[2019-12-09] MEDS: OMEPRAZOLE 20 MG CAPSULE.DR GT SCH ×2 (05:52→18:22)
--- NOTE | 2019-12-09 07:05 | NUR ---
PT RECEIVED TRACHED ON [facility] VENT ON CHARTED SETTINGS. NO SIGNS OF RESP DISTRESS NOTED AT THIS TIME. AIRWAY PATENT AND SECURED. DOMESTIC LAUNDRY WORKER DONE. PT SUCTIONED. ALARMS SET AND AUDIBLE. AMBUBAG AND SPARE TRACH AT BEDSIDE. VENT CONNECTED TO RED OUTLET. WILL CONT TO MONITOR Addendum: 12/09/19 at 0705 by BENIGNO RAMIREZ RT Amended: Links added.
[2019-12-09 07:50] VITALS: BP 132/79
[2019-12-09] MEDS: LEVETIRACETAM SOL (5 ML) 100 MG/ML UDC GT SCH ×2 (08:55→21:41)
[2019-12-09] MEDS: AMIODARONE HCL 200 MG TABLET GT SCH (08:55)
[2019-12-09] MEDS: METOPROLOL TARTRATE 50 MG TABLET GT SCH ×2 (08:56→17:00)
[2019-12-09] MEDS: MULTIVIT W/MINERALS 1 TAB TABLET GT SCH (08:56)
[2019-12-09] MEDS: PROSTAT (PYXIS) 30 ML UDC GT SCH ×3 (08:56→21:41)
[2019-12-09] MEDS: ACETAMINOPHEN 650 MG/20 ML UDC- SA PATIENTS-PAIN ONLY GT SCH ×2 (08:57→21:42)
[2019-12-09] MEDS: CLOTRIMAZOLE 1% 15 GM TUBE TP SCH ×2 (08:57→21:58)
[2019-12-09] MEDS: ASCORBIC ACID 500 MG TABLET GT SCH (08:57)
[2019-12-09] MEDS: Z GUARD REMEDY 4 OZ OINT TP SCH ×2 (08:57→21:58)
[2019-12-09] MEDS: IV 1/2NS 1000 ML 1,000 ML IV PRN (10:21)
--- NOTE | 2019-12-09 15:17 | NUR ---
Spoke to Cece, pharmacist and asked if patient's pneumonia is getting treated with abx aside from the UTI, also if MD is aware of the results. Informed Dr. Fernandes regarding CXR done on 12/05/19 and also informed him that patient is only on Rocephin 1g for UTI. Per Dr. Fernandes no new orders.
[2019-12-09] MEDS: CEFTRIAXONE 1 G in IV D5W 50 ML IV SCH (17:16)
[2019-12-09 20:47] VITALS: BP 116/63
[2019-12-09] MEDS: ATORVASTATIN 10 MG TABLET GT SCH (21:41)
[2019-12-09] MEDS: TAMSULOSIN 0.4 MG CAP.SR.24H GT SCH (21:42)
[2019-12-10] MEDS: OMEPRAZOLE 20 MG CAPSULE.DR GT SCH ×2 (06:23→17:01)
[2019-12-10 07:34] VITALS: BP_SYST 104; BP_SYST 124; BP_DIAS 56; BP_DIAS 66
[2019-12-10] MEDS: PROSTAT (PYXIS) 30 ML UDC GT SCH ×3 (09:57→21:18)
[2019-12-10] MEDS: AMIODARONE HCL 200 MG TABLET GT SCH (09:57)
[2019-12-10] MEDS: LEVETIRACETAM SOL (5 ML) 100 MG/ML UDC GT SCH ×2 (09:57→21:18)
[2019-12-10] MEDS: MULTIVIT W/MINERALS 1 TAB TABLET GT SCH (09:57)
[2019-12-10] MEDS: METOPROLOL TARTRATE 50 MG TABLET GT SCH ×2 (09:57→17:01)
[2019-12-10] MEDS: CLOTRIMAZOLE 1% 15 GM TUBE TP SCH ×2 (09:58→21:18)
[2019-12-10] MEDS: Z GUARD REMEDY 4 OZ OINT TP SCH ×2 (09:58→21:18)
[2019-12-10] MEDS: ASCORBIC ACID 500 MG TABLET GT SCH (09:58)
[2019-12-10] MEDS: ACETAMINOPHEN 650 MG/20 ML UDC- SA PATIENTS-PAIN ONLY GT SCH ×2 (09:58→21:18)
--- NOTE | 2019-12-10 10:00 | NUR ---
Pharmacist (Cece) called, she called and spoke to Dr. Pierre regarding patients' ongoing IV ATBs' , She made aware Dr. Pierre Urine and sputum c and s results, sputum c and s results patient is resistant to rocephin. discontinued rocephin IV q 24 hrs. To start merrem 500 m g IV q 12 hrs x 7 days. Noted and carried out.
--- NOTE | 2019-12-10 10:30 | NUR ---
S.O. pharmacist requesting patient to have repeat chest x-ray. Dr. Fernandes made aware , he requested to let lab. check urine c and s for meropenem, called [facility] and spoke to ricardo, patient urine c and s, sensitive to merrem. Dr. Fernandes does not want to have repeat chest x ray. Called [facility] and spoke to kayce rios to get initial dose from the e kit and will deliver tonight IV ATBs. All new orders noted and carried out.
--- NOTE | 2019-12-10 11:30 | NUR ---
Meropenem 500 mg IV started from E. kit. No adverse reactions noted. Patient closely monitored. Patient still on IV 1/2 ns at 70 ml/hr x 72 hrs.
[2019-12-10] MEDS: MEROPENEM 500 MG in IV NS 0.9% 50 ML IV SCH (12:00)
[2019-12-10] MEDS: TWOCAL HN 1,000 ML LIQUID GT PRN (16:39)
--- NOTE | 2019-12-10 17:28 | NUR ---
RT NOTE RECEIVED PATIENT ON TRACH WITH MECHANICAL VENTILATOR. TRACH IS PATENT AND SECURED. SPARE TRACH AND BVM IS AT BEDSIDE. ALARMS ARE SET AND AUDIBLE. VENTILATOR IS PLUGGED TO THE RED OUTLET. PATIENT HAS EQUAL CHEST RISE WITH COARSE BILATERAL BREATH SOUNDS. SUCTION MODERATE AMOUNT OF THIN YOO SECRETIONS THROUGH OUT THE DAY. PATIENT IS IN SYNC AND COMFORTABLE ON THE VENTILATOR. Addendum: 12/10/19 at 1729 by MAY HEAD RT Amended: Links added.
[2019-12-10 20:37] VITALS: BP 120/80
[2019-12-10] MEDS: ATORVASTATIN 10 MG TABLET GT SCH (21:18)
[2019-12-10] MEDS: TAMSULOSIN 0.4 MG CAP.SR.24H GT SCH (21:18)
[2019-12-11] MEDS: OMEPRAZOLE 20 MG CAPSULE.DR GT SCH ×2 (05:56→17:14)
[2019-12-11 07:35] LABS: CREATININE 0.9 mg/dL (0.6-1.3); POTASSIUM 4.5 mmol/L (3.5-5.1)
[2019-12-11 07:39] VITALS: BP 128/68
[2019-12-11] MEDS: Z GUARD REMEDY 4 OZ OINT TP SCH ×2 (09:00→21:55)
[2019-12-11] MEDS: ACETAMINOPHEN 650 MG/20 ML UDC- SA PATIENTS-PAIN ONLY GT SCH ×2 (09:00→21:54)
[2019-12-11] MEDS: METOPROLOL TARTRATE 50 MG TABLET GT SCH ×2 (09:00→17:14)
[2019-12-11] MEDS: PROSTAT (PYXIS) 30 ML UDC GT SCH ×3 (09:00→21:54)
[2019-12-11] MEDS: ASCORBIC ACID 500 MG TABLET GT SCH (09:00)
[2019-12-11] MEDS: CLOTRIMAZOLE 1% 15 GM TUBE TP SCH ×2 (09:00→21:55)
[2019-12-11] MEDS: LEVETIRACETAM SOL (5 ML) 100 MG/ML UDC GT SCH ×2 (09:00→21:54)
[2019-12-11] MEDS: MULTIVIT W/MINERALS 1 TAB TABLET GT SCH (09:00)
[2019-12-11] MEDS: AMIODARONE HCL 200 MG TABLET GT SCH (09:00)
--- NOTE | 2019-12-11 11:00 | NUR ---
Relayed BMP result to EMMANUEL Treadwell. Informed her that pt completed IV 1/2 NS yesterday. She ordered to continue 1/2 NS at 70 mL/hr IV and she said she will re-evaluate later when she sees the pt.
[2019-12-11] MEDS: MEROPENEM 500 MG in IV NS 0.9% 50 ML IV SCH ×4 (12:00→23:13)
[2019-12-11] MEDS ORDERED: IV 1/2NS 1000 ML 1,000 ML IV PRN (14:00)
--- NOTE | 2019-12-11 16:11 | NUR ---
RT NOTE RECEIVED PATIENT ON MECHANICAL VENT WITH ORDERED SETTINGS. ALARMS ON AND AUDIBLE. VENT PLUGGED IN TO RED OUTLET. TRACH TUBE IN PLACE, PATENT, AND SECURED WITH TRACH TIE. BACK UP TRACH AND AMBU BAG BY THE BEDSIDE. NO DISTRESS AT THIS TIME.
[2019-12-11 19:58] VITALS: BP 118/60
--- NOTE | 2019-12-11 20:00 | NUR ---
RN NOTES Seen and examined by Lora Treadwell NP, with new order to d/c hydration, noted and carried out.
[2019-12-11] MEDS: ATORVASTATIN 10 MG TABLET GT SCH (21:54)
[2019-12-11] MEDS: TAMSULOSIN 0.4 MG CAP.SR.24H GT SCH (21:55)
[2019-12-12] MEDS: OMEPRAZOLE 20 MG CAPSULE.DR GT SCH ×2 (06:00→17:37)
[2019-12-12 07:43] VITALS: BP 151/75
[2019-12-12] MEDS: Z GUARD REMEDY 4 OZ OINT TP SCH ×2 (09:00→21:09)
[2019-12-12] MEDS: CLOTRIMAZOLE 1% 15 GM TUBE TP SCH ×2 (09:00→21:08)
[2019-12-12] MEDS: AMIODARONE HCL 200 MG TABLET GT SCH (09:54)
[2019-12-12] MEDS: LEVETIRACETAM SOL (5 ML) 100 MG/ML UDC GT SCH ×2 (09:58→21:08)
[2019-12-12] MEDS: METOPROLOL TARTRATE 50 MG TABLET GT SCH ×2 (09:58→17:00)
[2019-12-12] MEDS: ASCORBIC ACID 500 MG TABLET GT SCH (09:59)
[2019-12-12] MEDS: ACETAMINOPHEN 650 MG/20 ML UDC- SA PATIENTS-PAIN ONLY GT SCH ×2 (09:59→21:08)
[2019-12-12] MEDS: PROSTAT (PYXIS) 30 ML UDC GT SCH ×3 (09:59→21:08)
[2019-12-12] MEDS: MULTIVIT W/MINERALS 1 TAB TABLET GT SCH (09:59)
[2019-12-12] MEDS: MEROPENEM 500 MG in IV NS 0.9% 50 ML IV SCH (12:00)
[2019-12-12 20:00] VITALS: BP 101/63
[2019-12-12] MEDS: ATORVASTATIN 10 MG TABLET GT SCH (21:08)
[2019-12-12] MEDS: TAMSULOSIN 0.4 MG CAP.SR.24H GT SCH (21:09)
[2019-12-13] MEDS: OMEPRAZOLE 20 MG CAPSULE.DR GT SCH ×2 (06:01→17:18)
[2019-12-13 08:11] VITALS: BP 114/58
--- NOTE | 2019-12-13 08:39 | NUR ---
RT NOTES PT RECEIVED TRACHED ON [facility] VENT ON CHARTED SETTINGS. NO SIGNS OF RESP DISTRESS NOTED AT THIS TIME. TRACH TUBE PATENT AND SECURED. ENGINE DISPATCHER DONE. PT SUCTIONED PRN. AMBUBAG AND SPARE TRACH AT [facility]. VENT CONNECTED TO RED OUTLET , ALARMS AUDIBLE. WILL CONT TO MONITOR. Addendum: 12/13/19 at 0839 by SARAH BARNEY RT Amended: Links added.
[2019-12-13] MEDS: CLOTRIMAZOLE 1% 15 GM TUBE TP SCH ×2 (09:00→21:30)
[2019-12-13] MEDS: Z GUARD REMEDY 4 OZ OINT TP SCH ×2 (09:00→21:30)
[2019-12-13] MEDS: MULTIVIT W/MINERALS 1 TAB TABLET GT SCH (09:46)
[2019-12-13] MEDS: ACETAMINOPHEN 650 MG/20 ML UDC- SA PATIENTS-PAIN ONLY GT SCH ×2 (09:46→21:30)
[2019-12-13] MEDS: LEVETIRACETAM SOL (5 ML) 100 MG/ML UDC GT SCH ×2 (09:46→21:30)
[2019-12-13] MEDS: ASCORBIC ACID 500 MG TABLET GT SCH (09:46)
[2019-12-13] MEDS: PROSTAT (PYXIS) 30 ML UDC GT SCH ×3 (09:46→21:30)
[2019-12-13] MEDS: METOPROLOL TARTRATE 50 MG TABLET GT SCH ×2 (09:46→16:21)
[2019-12-13] MEDS: AMIODARONE HCL 200 MG TABLET GT SCH (09:46)
[2019-12-13] MEDS: MEROPENEM 500 MG in IV NS 0.9% 50 ML IV SCH ×4 (12:00→23:10)
--- NOTE | 2019-12-13 12:28 | NUR ---
Family Support Group: The patients family was not able to attend the family support group today.
[2019-12-13 20:04] VITALS: BP 95/53
[2019-12-13] MEDS: ATORVASTATIN 10 MG TABLET GT SCH (21:30)
[2019-12-13] MEDS: TWOCAL HN 1,000 ML LIQUID GT PRN (22:23)
[2019-12-13] MEDS: TAMSULOSIN 0.4 MG CAP.SR.24H GT SCH (22:23)
[2019-12-14] MEDS: OMEPRAZOLE 20 MG CAPSULE.DR GT SCH ×2 (06:13→17:44)
[2019-12-14 07:38] VITALS: BP 97/49
[2019-12-14] MEDS: METOPROLOL TARTRATE 50 MG TABLET GT SCH ×2 (09:00→17:00)
[2019-12-14] MEDS: Z GUARD REMEDY 4 OZ OINT TP SCH ×2 (09:00→21:10)
[2019-12-14] MEDS: CLOTRIMAZOLE 1% 15 GM TUBE TP SCH ×2 (09:00→21:10)
[2019-12-14] MEDS: LEVETIRACETAM SOL (5 ML) 100 MG/ML UDC GT SCH ×2 (09:31→21:09)
[2019-12-14] MEDS: ACETAMINOPHEN 650 MG/20 ML UDC- SA PATIENTS-PAIN ONLY GT SCH ×2 (09:32→21:10)
[2019-12-14] MEDS: MULTIVIT W/MINERALS 1 TAB TABLET GT SCH (09:32)
[2019-12-14] MEDS: PROSTAT (PYXIS) 30 ML UDC GT SCH ×3 (09:32→21:09)
[2019-12-14] MEDS: ASCORBIC ACID 500 MG TABLET GT SCH (09:33)
[2019-12-14] MEDS: AMIODARONE HCL 200 MG TABLET GT SCH (09:34)
[2019-12-14] MEDS: MEROPENEM 500 MG in IV NS 0.9% 50 ML IV SCH (12:00)
[2019-12-14 19:49] VITALS: BP 103/57
[2019-12-14] MEDS: ATORVASTATIN 10 MG TABLET GT SCH (21:09)
[2019-12-14] MEDS: TAMSULOSIN 0.4 MG CAP.SR.24H GT SCH (21:10)
[2019-12-14] MEDS: TWOCAL HN 1,000 ML LIQUID GT PRN (21:19)
[2019-12-15] MEDS: OMEPRAZOLE 20 MG CAPSULE.DR GT SCH ×2 (05:24→18:10)
[2019-12-15 07:30] VITALS: BP 120/62
[2019-12-15] MEDS: AMIODARONE HCL 200 MG TABLET GT SCH (09:00)
[2019-12-15] MEDS: PROSTAT (PYXIS) 30 ML UDC GT SCH ×3 (09:00→21:45)
[2019-12-15] MEDS: Z GUARD REMEDY 4 OZ OINT TP SCH ×2 (09:00→21:46)
[2019-12-15] MEDS: METOPROLOL TARTRATE 50 MG TABLET GT SCH ×2 (09:00→16:47)
[2019-12-15] MEDS: MULTIVIT W/MINERALS 1 TAB TABLET GT SCH (09:00)
[2019-12-15] MEDS: ACETAMINOPHEN 650 MG/20 ML UDC- SA PATIENTS-PAIN ONLY GT SCH ×2 (09:00→21:45)
[2019-12-15] MEDS: ASCORBIC ACID 500 MG TABLET GT SCH (09:00)
[2019-12-15] MEDS: LEVETIRACETAM SOL (5 ML) 100 MG/ML UDC GT SCH ×2 (09:00→21:45)
[2019-12-15] MEDS: CLOTRIMAZOLE 1% 15 GM TUBE TP SCH ×2 (09:00→21:46)
[2019-12-15] MEDS: MEROPENEM 500 MG in IV NS 0.9% 50 ML IV SCH ×4 (12:00→23:56)
--- NOTE | 2019-12-15 13:00 | NUR ---
Dr. Fernandes gave an order to place patient on SIMV on 12/18/19 RR-4, PEEP-5, PS-15. ABG 2 hrs post vent changes.
--- NOTE | 2019-12-15 16:00 | NUR ---
Seen and examined by Dr. Pierre with new order to do PSA on Wednesday12/15/19. Informed him that daughter is requesting him to call patient's oncologist Dr. Jr Terrell at [phone] to discuss possible prostate cancer treatment which was last done in 2018.
--- NOTE | 2019-12-15 16:03 | NUR ---
INTERDISCIPLINARY PLAN OF CARE CONFERENCE took place today. The patients Daughter, Shae Snyder [phone] participated via phone conference[address] Dr. Fernandes and Interdisciplinary team discussed the plan of care in detail. The IDT addressed all of the familys questions. Shae requested that Dr. Pierre get in contact with the patients PCP, Dr. Jr Terrell to discuss the patients Hx of Prostate Cancer and if Tx: IV cHEMO & should be continued. Current orders as well as treatments and medications were reviewed. Charge nurse discussed D/C IV hydration 12/11/2019; Continue Tx for trach site redness and weaning trial planned for 12/18/2019;UTI Tx. Please see other disciplines IDT notes for further details. Addendum: 12/15/19 at 1605 by TOMMY CANTU Correction: INTERDISCIPLINARY PLAN OF CARE CONFERENCE took place today. The patients Daughter, Shae Snyder [phone] participated via phone conference. Dr. Fernandes and Interdisciplinary team discussed the plan of care in detail. The IDT addressed all of the familys questions. Shae requested that Dr. Pierre get in contact with the patients PCP, Dr. Jr Terrell to discuss the patients Hx of Prostate Cancer and if Tx: (IV Chemo & Lupron Injection) should be continued. Current orders as well as treatments and medications were reviewed. Charge nurse discussed D/C IV hydration 12/11/2019; Continue Tx for trach site redness and weaning trial planned for 12/18/2019;UTI Tx. Please see other disciplines IDT notes for further details.
--- NOTE | 2019-12-15 17:48 | NUR ---
RT NOTE RECEIVED PATIENT ON TRACH WITH MECHANICAL VENTILATOR. TRACH IS PATENT AND SECURED. SPARE TRACH AND BVM IS AT BEDSIDE. ALARMS ARE SET AND AUDIBLE. VENTILATOR IS PLUGGED TO THE RED OUTLET. PATIENT HAS EQUAL CHEST RISE WITH COARSE BILATERAL BREATH SOUNDS. SUCTION SMALL TO MODERATE AMOUNT OF THICK GREEN/YOO SECRETIONS THROUGH OUT THE DAY. PATIENT IS IN SYNC AND COMFORTABLE ON THE VENTILATOR. Addendum: 12/15/19 at 1751 by MAY HEAD RT Amended: Links added.
[2019-12-15 20:07] VITALS: BP 100/43
[2019-12-15] MEDS: ATORVASTATIN 10 MG TABLET GT SCH (21:45)
[2019-12-15] MEDS: TAMSULOSIN 0.4 MG CAP.SR.24H GT SCH (21:46)
[2019-12-15] MEDS: TWOCAL HN 1,000 ML LIQUID GT PRN (21:50)
[2019-12-16] MEDS: OMEPRAZOLE 20 MG CAPSULE.DR GT SCH ×2 (06:04→17:12)
[2019-12-16 07:43] VITALS: BP 122/71
[2019-12-16] MEDS: LEVETIRACETAM SOL (5 ML) 100 MG/ML UDC GT SCH ×2 (08:53→21:48)
[2019-12-16] MEDS: AMIODARONE HCL 200 MG TABLET GT SCH (08:53)
[2019-12-16] MEDS: METOPROLOL TARTRATE 50 MG TABLET GT SCH ×2 (08:54→16:46)
[2019-12-16] MEDS: PROSTAT (PYXIS) 30 ML UDC GT SCH ×3 (08:55→21:48)
[2019-12-16] MEDS: ACETAMINOPHEN 650 MG/20 ML UDC- SA PATIENTS-PAIN ONLY GT SCH ×2 (08:55→21:48)
[2019-12-16] MEDS: MULTIVIT W/MINERALS 1 TAB TABLET GT SCH (08:55)
[2019-12-16] MEDS: ASCORBIC ACID 500 MG TABLET GT SCH (08:55)
[2019-12-16] MEDS: Z GUARD REMEDY 4 OZ OINT TP SCH ×3 (09:00→21:49)
[2019-12-16] MEDS: CLOTRIMAZOLE 1% 15 GM TUBE TP SCH ×2 (09:55→21:48)
[2019-12-16] MEDS: MEROPENEM 500 MG in IV NS 0.9% 50 ML IV SCH (12:20)
--- NOTE | 2019-12-16 12:20 | NUR ---
RT RECEIVED PATIENT TRACH'D ON [facility] VENT WITH SETTINGS PER MD ORDER. MEDICAL ARTIST DONE. VENT PLUGGED INTO RED OUTLET. SPARE TRACH AND AMBU BAG AT HEAD OF BED. VENT ALARMS ON AND WORKING PROPERLY. SUCTIONED MOD AMOUNTS OF THICK, PALE YELLOW SECRETIONS. NO SIGNS OF DISTRESS NOTED THROUGHOUT SHIFT. TRACH CARE DONE. Addendum: 12/17/19 at 1755 by KRISTINE MULLIGAN RT Amended: Links added.
[2019-12-16] MEDS ORDERED: Z GUARD REMEDY 4 OZ OINT TP PRN (17:30)
[2019-12-16 20:16] VITALS: BP 99/60
[2019-12-16] MEDS: ATORVASTATIN 10 MG TABLET GT SCH (21:48)
[2019-12-16] MEDS: TAMSULOSIN 0.4 MG CAP.SR.24H GT SCH (21:49)
[2019-12-17] MEDS: MEROPENEM 500 MG in IV NS 0.9% 50 ML IV SCH ×2
[2019-12-17] MEDS: OMEPRAZOLE 20 MG CAPSULE.DR GT SCH ×2 (05:05→17:09)
[2019-12-17 07:46] VITALS: BP 132/67
[2019-12-17] MEDS: AMIODARONE HCL 200 MG TABLET GT SCH (08:36)
[2019-12-17] MEDS: LEVETIRACETAM SOL (5 ML) 100 MG/ML UDC GT SCH ×2 (08:36→21:25)
[2019-12-17] MEDS: METOPROLOL TARTRATE 50 MG TABLET GT SCH ×2 (08:37→17:00)
[2019-12-17] MEDS: PROSTAT (PYXIS) 30 ML UDC GT SCH ×3 (08:37→21:25)
[2019-12-17] MEDS: MULTIVIT W/MINERALS 1 TAB TABLET GT SCH (08:37)
[2019-12-17] MEDS: ASCORBIC ACID 500 MG TABLET GT SCH (08:38)
[2019-12-17] MEDS: CLOTRIMAZOLE 1% 15 GM TUBE TP SCH ×2 (08:38→21:25)
[2019-12-17] MEDS: ACETAMINOPHEN 650 MG/20 ML UDC- SA PATIENTS-PAIN ONLY GT SCH ×2 (08:38→21:25)
[2019-12-17] MEDS: Z GUARD REMEDY 4 OZ OINT TP SCH ×4 (08:38→21:26)
--- NOTE | 2019-12-17 12:21 | NUR ---
RT PT RECEIVED TRACH'D ON [facility] VENT WITH SETTINGS PER MD ORDER. CUSTOMER EXPERIENCE STRATEGIST DONE. VENT PLUGGED INTO RED OUTLET. SPARE TRACH AND AMBU BAG AT HEAD OF BED. VENT ALARMS ON AND FUNCTIONING PROPERLY. SUCTIONED MOD AMOUNTS OF THICK, PALE YELLOW SECRETIONS. NO SOB NOTED THROUGHOUT SHIFT. TRACH CARE DONE. Addendum: 12/17/19 at 1755 by KRISTINE MULLIGAN RT Amended: Links added.
[2019-12-17 20:37] VITALS: BP 120/56
[2019-12-17] MEDS: ATORVASTATIN 10 MG TABLET GT SCH (21:25)
[2019-12-17] MEDS: TAMSULOSIN 0.4 MG CAP.SR.24H GT SCH (21:26)
[2019-12-18] MEDS: OMEPRAZOLE 20 MG CAPSULE.DR GT SCH ×2 (05:59→17:47)
[2019-12-18 07:04] LABS: FREE PSA 0.07 ng/mL (0.00-45); PROSTATE SPECIFIC ANTIGEN SCR 0.24 ng/mL (0.00-4.00)
[2019-12-18 07:47] VITALS: BP 131/68
[2019-12-18] MEDS: PROSTAT (PYXIS) 30 ML UDC GT SCH ×3 (09:00→20:37)
[2019-12-18] MEDS: METOPROLOL TARTRATE 50 MG TABLET GT SCH ×2 (09:00→17:00)
[2019-12-18] MEDS: Z GUARD REMEDY 4 OZ OINT TP SCH ×4 (09:00→20:48)
[2019-12-18] MEDS: CLOTRIMAZOLE 1% 15 GM TUBE TP SCH ×2 (09:00→20:48)
[2019-12-18] MEDS: ASCORBIC ACID 500 MG TABLET GT SCH (09:00)
[2019-12-18] MEDS: LEVETIRACETAM SOL (5 ML) 100 MG/ML UDC GT SCH ×2 (09:00→20:34)
[2019-12-18] MEDS: MULTIVIT W/MINERALS 1 TAB TABLET GT SCH (09:00)
[2019-12-18] MEDS: AMIODARONE HCL 200 MG TABLET GT SCH (09:00)
[2019-12-18 09:48] LABS: ABG BASE EXCESS -0.1 mmol/L; ABG OXYGEN SATURATION 96.2 % (92.0-98.5); ABG PCO2 19.7 mmHg (35.0-45.0); ABG PO2 76.8 mmHg (75.0-100.0); COHb 0.2 % (0.5-1.5); MetHb 0.3 % (0.0-1.5); O2Hb 95.7 % (94.0-97.0); PEEP,BG 5 cm H2O; SITE, ABG Right Radial; VT, ABG 450 mL
--- NOTE | 2019-12-18 10:22 | NUR ---
Pt was placed on SIMV 4 PS 15 FiO2 30% PEEP +5 and ABG was done. ABG result relayed to Dr Fernandes. He ordered to decrease PS to 12. Dr Fernandes also saw pt and said pt looks fine. No respiratory distress noted, tolerating new vent setting well.
[2019-12-18] MEDS: ACETAMINOPHEN 650 MG/20 ML UDC- SA PATIENTS-PAIN ONLY GT SCH ×2 (11:00→20:38)
--- NOTE | 2019-12-18 17:52 | NUR ---
Relayed PSA result to Dr Pierre.
[2019-12-18 20:14] VITALS: BP 127/72
[2019-12-18 20:21] VITALS: BP 98/58
[2019-12-18] MEDS: ATORVASTATIN 10 MG TABLET GT SCH (20:37)
[2019-12-18] MEDS: TAMSULOSIN 0.4 MG CAP.SR.24H GT SCH (21:41)
[2019-12-19] MEDS: TWOCAL HN 1,000 ML LIQUID GT PRN (02:59)
[2019-12-19] MEDS: OMEPRAZOLE 20 MG CAPSULE.DR GT SCH ×2 (05:28→17:04)
[2019-12-19 07:49] VITALS: BP 134/68
[2019-12-19] MEDS: CLOTRIMAZOLE 1% 15 GM TUBE TP SCH ×2 (09:00→21:22)
[2019-12-19] MEDS: Z GUARD REMEDY 4 OZ OINT TP SCH ×4 (09:00→21:22)
--- NOTE | 2019-12-19 09:00 | NUR ---
Seen and examined by Dr. Fernandes, no new order given.
[2019-12-19] MEDS: AMIODARONE HCL 200 MG TABLET GT SCH (09:06)
[2019-12-19] MEDS: PROSTAT (PYXIS) 30 ML UDC GT SCH ×3 (09:07→21:21)
[2019-12-19] MEDS: LEVETIRACETAM SOL (5 ML) 100 MG/ML UDC GT SCH ×2 (09:07→21:21)
[2019-12-19] MEDS: METOPROLOL TARTRATE 50 MG TABLET GT SCH ×2 (09:07→17:04)
[2019-12-19] MEDS: ACETAMINOPHEN 650 MG/20 ML UDC- SA PATIENTS-PAIN ONLY GT SCH ×2 (09:07→21:22)
[2019-12-19] MEDS: MULTIVIT W/MINERALS 1 TAB TABLET GT SCH (09:07)
[2019-12-19] MEDS: ASCORBIC ACID 500 MG TABLET GT SCH (09:08)
--- NOTE | 2019-12-19 19:38 | NUR ---
RT NOTE RECEIVED PT ON VENTILATOR PER CURRENT MD ORDERS. TOLERATING VENT SETTINGS WELL. NO INCREASED WOB OR SOB NOTED. ALARMS AUDIBLE AND ON. VENTILATOR PLUGGED INTO RED OUTLET. BACK UP TRACH AND AMBUBAG BY BEDSIDE. WILL CONTINUE TO MONITOR T/O SHIFT. Addendum: 12/19/19 at 1938 by BENIGNO RAMIREZ RT Amended: Links added.
[2019-12-19 20:28] VITALS: BP 106/65
[2019-12-19] MEDS: ATORVASTATIN 10 MG TABLET GT SCH (21:21)
[2019-12-19] MEDS: TAMSULOSIN 0.4 MG CAP.SR.24H GT SCH (21:22)
[2019-12-20] MEDS: OMEPRAZOLE 20 MG CAPSULE.DR GT SCH ×2 (05:57→17:40)
[2019-12-20 07:59] VITALS: BP 124/58
[2019-12-20] MEDS: LEVETIRACETAM SOL (5 ML) 100 MG/ML UDC GT SCH ×2 (09:57→21:19)
[2019-12-20] MEDS: AMIODARONE HCL 200 MG TABLET GT SCH (09:57)
[2019-12-20] MEDS: MULTIVIT W/MINERALS 1 TAB TABLET GT SCH (09:58)
[2019-12-20] MEDS: ACETAMINOPHEN 650 MG/20 ML UDC- SA PATIENTS-PAIN ONLY GT SCH ×2 (09:58→21:20)
[2019-12-20] MEDS: CLOTRIMAZOLE 1% 15 GM TUBE TP SCH ×2 (09:58→21:20)
[2019-12-20] MEDS: Z GUARD REMEDY 4 OZ OINT TP SCH ×4 (09:58→21:21)
[2019-12-20] MEDS: ASCORBIC ACID 500 MG TABLET GT SCH (09:58)
[2019-12-20] MEDS: PROSTAT (PYXIS) 30 ML UDC GT SCH ×3 (09:58→21:20)
[2019-12-20] MEDS: METOPROLOL TARTRATE 50 MG TABLET GT SCH ×2 (09:58→17:00)
--- NOTE | 2019-12-20 15:57 | NUR ---
RT RECEIVED PATIENT TRACH'D ON [facility] VENT WITH SIMV MODE SETTINGS PER MD ORDER. BOBTAILER DONE. VENT PLUGGED INTO RED OUTLET. SPARE TRACH AND AMBU BAG AT HEAD OF BED. VENT ALARMS ON AND WORKING PROPERLY. SUCTIONED LARGE AMOUNTS OF THICK, YELLOW SECRETIONS. NO SOB NOTED THROUGHOUT SHIFT. TRACH CARE DONE. Addendum: 12/20/19 at 1816 by KRISTINE MULLIGAN RT Amended: Links added.
[2019-12-20 20:36] VITALS: BP 120/64
[2019-12-20] MEDS: ATORVASTATIN 10 MG TABLET GT SCH (21:20)
[2019-12-20] MEDS: TAMSULOSIN 0.4 MG CAP.SR.24H GT SCH (21:21)
[2019-12-21] MEDS: OMEPRAZOLE 20 MG CAPSULE.DR GT SCH ×2 (05:28→17:15)
[2019-12-21 07:28] VITALS: BP 124/63
[2019-12-21] MEDS: LEVETIRACETAM SOL (5 ML) 100 MG/ML UDC GT SCH ×2 (09:00→20:28)
[2019-12-21] MEDS: CLOTRIMAZOLE 1% 15 GM TUBE TP SCH ×2 (09:00→20:28)
[2019-12-21] MEDS: AMIODARONE HCL 200 MG TABLET GT SCH (09:00)
[2019-12-21] MEDS: MULTIVIT W/MINERALS 1 TAB TABLET GT SCH (09:00)
[2019-12-21] MEDS: METOPROLOL TARTRATE 50 MG TABLET GT SCH ×2 (09:00→17:00)
[2019-12-21] MEDS: Z GUARD REMEDY 4 OZ OINT TP SCH ×4 (09:00→20:29)
[2019-12-21] MEDS: ASCORBIC ACID 500 MG TABLET GT SCH (09:00)
[2019-12-21] MEDS: PROSTAT (PYXIS) 30 ML UDC GT SCH ×3 (09:00→20:28)
[2019-12-21] MEDS: ACETAMINOPHEN 650 MG/20 ML UDC- SA PATIENTS-PAIN ONLY GT SCH ×2 (10:50→20:28)
[2019-12-21] MEDS: TWOCAL HN 1,000 ML LIQUID GT PRN (10:52)
--- NOTE | 2019-12-21 15:53 | NUR ---
RT PT RECEIVED TRACH'D ON [facility] VENT WITH SIMV MODE SETTINGS PER MD ORDER. MECHANICAL PLANNER DONE. VENT PLUGGED INTO RED OUTLET. SPARE TRACH AND AMBU BAG AT HEAD OF BED. VENT ALARMS ON AND WORKING PROPERLY. SUCTIONED LARGE AMOUNTS OF THICK, YELLOW SECRETIONS. NO SIGNS OF DISTRESS NOTED THROUGHOUT SHIFT. TRACH CARE DONE. Addendum: 12/21/19 at 1832 by KRISTINE MULLIGAN RT Amended: Links added.
--- NOTE | 2019-12-21 20:26 | NUR ---
Seen by Lora Treadwell with order to do CBC in AM,carried out.
[2019-12-21] MEDS: ATORVASTATIN 10 MG TABLET GT SCH (20:28)
[2019-12-21 20:42] VITALS: BP 118/61
[2019-12-21] MEDS: TAMSULOSIN 0.4 MG CAP.SR.24H GT SCH (21:11)
[2019-12-22] MEDS: OMEPRAZOLE 20 MG CAPSULE.DR GT SCH ×2 (05:40→17:38)
[2019-12-22 07:40] VITALS: BP 117/78
[2019-12-22 08:22] LABS: BASOPHILS # (AUTO) 0.1 /CMM (0.0-0.2); BASOPHILS % (AUTO) 0.9 % (0.0-2.0); EOSINOPHILS % (AUTO) 2.5 % (0.0-6.0); HEMATOCRIT 26 % (39-51); HEMOGLOBIN 8.3 g/dL (13.5-17.5); LYMPHOCYTES % (AUTO) 15.9 % (20.0-44.0); MEAN CORPUSCULAR HGB CONC 33 g/dl (31.0-36.0); MEAN CORPUSCULAR VOLUME 87 fL (80-96); MONOCYTES # (AUTO) 0.5 /CMM (0.1-1.30); MONOCYTES % (AUTO) 7.1 % (2.0-12.0); NEUTROPHILS # (AUTO) 4.7 /CMM (1.8-8.9); NEUTROPHILS % (AUTO) 73.6 % (43.0-81.0); PLATELET COUNT (AUTO) 336 /CMM (150-450); RED BLOOD CELL COUNT(AUTO) 2.92 MIL/uL (4.5-6.0); WHITE BLOOD COUNT (AUTO) 6.4 K/uL (4.3-11.0)
--- NOTE | 2019-12-22 08:43 | NUR ---
PT RCVD TRACH'D ON MECHANICAL VENT WITH CHARTED SETTINGS. NO INDICATION FOR PRN TX AT THIS TIME. SX DONE. PT TRACH IS PATENT AND SECURE. VENT ALARMS ARE ON, SET, AND AUDIBLE. VENT PLUGGED INTO RED OUTLET. AMBU BAG AT BEDSIDE. NO SOB NOTED. Addendum: 12/22/19 at 0844 by NOVA GONZALEZ RT Amended: Links added.
[2019-12-22] MEDS: AMIODARONE HCL 200 MG TABLET GT SCH (09:00)
[2019-12-22] MEDS: MULTIVIT W/MINERALS 1 TAB TABLET GT SCH (09:00)
[2019-12-22] MEDS: Z GUARD REMEDY 4 OZ OINT TP SCH ×4 (09:00→20:48)
[2019-12-22] MEDS: ASCORBIC ACID 500 MG TABLET GT SCH (09:00)
[2019-12-22] MEDS: METOPROLOL TARTRATE 50 MG TABLET GT SCH ×2 (09:00→17:00)
[2019-12-22] MEDS: CLOTRIMAZOLE 1% 15 GM TUBE TP SCH ×2 (09:00→20:48)
[2019-12-22] MEDS: PROSTAT (PYXIS) 30 ML UDC GT SCH ×3 (09:00→20:47)
[2019-12-22] MEDS: LEVETIRACETAM SOL (5 ML) 100 MG/ML UDC GT SCH ×2 (09:00→20:46)
[2019-12-22] MEDS: ACETAMINOPHEN 650 MG/20 ML UDC- SA PATIENTS-PAIN ONLY GT SCH ×2 (10:10→20:48)
[2019-12-22] MEDS ORDERED: HYDROGEN PEROXIDE 480 ML BOTTLE TP PRN (10:30)
--- NOTE | 2019-12-22 11:08 | NUR ---
Relayed CBC result to Lora Treadwell NP for Dr. Fernandes, with Hbg. 8.3, no new order given.
[2019-12-22] MEDS: TWOCAL HN 1,000 ML LIQUID GT PRN (13:52)
--- NOTE | 2019-12-22 19:53 | NUR ---
RT NOTE RECEIVED PT ON VENTILATOR PER CURRENT MD ORDERS. TOLERATING VENT SETTINGS WELL. NO INCREASED WOB OR SOB NOTED. ALARMS AUDIBLE AND ON. VENTILATOR PLUGGED INTO RED OUTLET. BACK UP TRACH AND AMBUBAG BY BEDSIDE. WILL CONTINUE TO MONITOR T/O SHIFT. Addendum: 12/22/19 at 3 by BENIGNO RAMIREZ RT Amended: Links added.
[2019-12-22 20:13] VITALS: BP 109/69
[2019-12-22] MEDS: ATORVASTATIN 10 MG TABLET GT SCH (20:47)
[2019-12-22] MEDS: HYDROGEN PEROXIDE 480 ML BOTTLE TP SCH (20:48)
[2019-12-22] MEDS: TAMSULOSIN 0.4 MG CAP.SR.24H GT SCH (22:00)
--- NOTE | 2019-12-22 22:15 | NUR ---
MILLIE RODRIGUEZ NEXT OF KIN OF PATIENT NOTIFIED OF NEW POLICY REGARDING FAMILY VISIT IN LIEU OF nCOVID-19, FAMILY MEMBER VERBALIZED UNDERSTANDING.
[2019-12-23] MEDS: OMEPRAZOLE 20 MG CAPSULE.DR GT SCH ×2 (05:42→17:17)
[2019-12-23 07:37] VITALS: BP 174/79
--- NOTE | 2019-12-23 08:34 | NUR ---
Pt received on current settings. Airway is patent and secure with no signs or respiratory distress. PRN treatment not needed at this time. Vent alarms are audible and vent is plugged into red outlet. Will continue to monitor pt. Addendum: 12/23/19 at 0838 by EDWIN PRYOR RT Amended: Links added.
[2019-12-23] MEDS: ACETAMINOPHEN 650 MG/20 ML UDC- SA PATIENTS-PAIN ONLY GT SCH ×2 (09:00→20:44)
[2019-12-23] MEDS: ASCORBIC ACID 500 MG TABLET GT SCH (09:00)
[2019-12-23] MEDS: CLOTRIMAZOLE 1% 15 GM TUBE TP SCH ×2 (09:00→20:45)
[2019-12-23] MEDS: LEVETIRACETAM SOL (5 ML) 100 MG/ML UDC GT SCH ×2 (09:00→20:40)
[2019-12-23] MEDS: METOPROLOL TARTRATE 50 MG TABLET GT SCH ×2 (09:00→16:37)
[2019-12-23] MEDS: Z GUARD REMEDY 4 OZ OINT TP SCH ×4 (09:00→20:46)
[2019-12-23] MEDS: MULTIVIT W/MINERALS 1 TAB TABLET GT SCH (09:00)
[2019-12-23] MEDS: PROSTAT (PYXIS) 30 ML UDC GT SCH ×3 (09:00→20:42)
[2019-12-23] MEDS: HYDROGEN PEROXIDE 480 ML BOTTLE TP SCH ×2 (09:10→20:52)
[2019-12-23] MEDS: AMIODARONE HCL 200 MG TABLET GT SCH (10:03)
[2019-12-23] MEDS: TWOCAL HN 1,000 ML LIQUID GT PRN (11:34)
--- NOTE | 2019-12-23 19:19 | NUR ---
RT NOTE RECEIVED PT ON VENTILATOR PER CURRENT MD ORDERS. TOLERATING VENT SETTINGS WELL. NO INCREASED WOB OR SOB NOTED. ALARMS AUDIBLE AND ON. VENTILATOR PLUGGED INTO RED OUTLET. BACK UP TRACH AND AMBUBAG BY BEDSIDE. WILL CONTINUE TO MONITOR T/O SHIFT. Addendum: 12/23/19 at 1919 by BENIGNO RAMIREZ RT Amended: Links added.
[2019-12-23 20:40] VITALS: BP 138/60
[2019-12-23] MEDS: ATORVASTATIN 10 MG TABLET GT SCH (20:41)
[2019-12-23] MEDS: TAMSULOSIN 0.4 MG CAP.SR.24H GT SCH (21:55)
[2019-12-24] MEDS: OMEPRAZOLE 20 MG CAPSULE.DR GT SCH ×2 (05:59→17:07)
[2019-12-24 07:55] VITALS: BP 140/66
[2019-12-24] MEDS: AMIODARONE HCL 200 MG TABLET GT SCH (08:50)
[2019-12-24] MEDS: LEVETIRACETAM SOL (5 ML) 100 MG/ML UDC GT SCH ×2 (08:50→20:22)
[2019-12-24] MEDS: PROSTAT (PYXIS) 30 ML UDC GT SCH ×3 (08:55→20:22)
[2019-12-24] MEDS: ASCORBIC ACID 500 MG TABLET GT SCH (08:55)
[2019-12-24] MEDS: MULTIVIT W/MINERALS 1 TAB TABLET GT SCH (08:55)
[2019-12-24] MEDS: ACETAMINOPHEN 650 MG/20 ML UDC- SA PATIENTS-PAIN ONLY GT SCH ×2 (08:55→20:22)
[2019-12-24] MEDS: METOPROLOL TARTRATE 50 MG TABLET GT SCH ×2 (08:55→16:49)
[2019-12-24] MEDS: HYDROGEN PEROXIDE 480 ML BOTTLE TP SCH ×2 (09:00→21:09)
[2019-12-24] MEDS: Z GUARD REMEDY 4 OZ OINT TP SCH ×4 (09:55→20:22)
[2019-12-24] MEDS: CLOTRIMAZOLE 1% 15 GM TUBE TP SCH (09:55)
[2019-12-24] MEDS: TWOCAL HN 1,000 ML LIQUID GT PRN (15:03)
[2019-12-24 19:45] VITALS: BP 114/62
[2019-12-24] MEDS: ATORVASTATIN 10 MG TABLET GT SCH (20:22)
[2019-12-24] MEDS: TAMSULOSIN 0.4 MG CAP.SR.24H GT SCH (22:45)
[2019-12-25] MEDS: OMEPRAZOLE 20 MG CAPSULE.DR GT SCH ×2 (05:19→17:43)
[2019-12-25 07:35] VITALS: BP 123/63
[2019-12-25] MEDS: HYDROGEN PEROXIDE 480 ML BOTTLE TP SCH ×2 (09:00→21:00)
[2019-12-25] MEDS: MULTIVIT W/MINERALS 1 TAB TABLET GT SCH (09:00)
--- NOTE | 2019-12-25 09:09 | NUR ---
RT NOTE PT RCVD TRACH'D ON MECHANICAL VENT WITH CHARTED SETTINGS. VENT PLUGGED INTO RED OUTLET. AMBU BAG AT BEDSIDE. NO SOB NOTED AT THIS TIME. WILL CONTINUE TO MONITOR. Addendum: 12/25/19 at 0909 by SARAH BARNEY RT Amended: Links added.
[2019-12-25] MEDS: ASCORBIC ACID 500 MG TABLET GT SCH (09:50)
[2019-12-25] MEDS: LEVETIRACETAM SOL (5 ML) 100 MG/ML UDC GT SCH ×2 (09:50→21:08)
[2019-12-25] MEDS: ACETAMINOPHEN 650 MG/20 ML UDC- SA PATIENTS-PAIN ONLY GT SCH ×2 (09:50→21:09)
[2019-12-25] MEDS: AMIODARONE HCL 200 MG TABLET GT SCH (09:50)
[2019-12-25] MEDS: Z GUARD REMEDY 4 OZ OINT TP SCH ×4 (09:50→21:09)
[2019-12-25] MEDS: PROSTAT (PYXIS) 30 ML UDC GT SCH ×3 (09:50→21:08)
[2019-12-25] MEDS: METOPROLOL TARTRATE 50 MG TABLET GT SCH ×2 (09:50→17:00)
[2019-12-25] MEDS: TWOCAL HN 1,000 ML LIQUID GT PRN (17:43)
[2019-12-25 19:32] VITALS: BP 101/57
[2019-12-25] MEDS: ATORVASTATIN 10 MG TABLET GT SCH (21:08)
[2019-12-25] MEDS: TAMSULOSIN 0.4 MG CAP.SR.24H GT SCH (21:09)
[2019-12-26] MEDS: OMEPRAZOLE 20 MG CAPSULE.DR GT SCH ×2 (05:58→17:34)
[2019-12-26 07:35] VITALS: BP 110/57
[2019-12-26] MEDS: HYDROGEN PEROXIDE 480 ML BOTTLE TP SCH ×2 (09:25→21:00)
[2019-12-26] MEDS: AMIODARONE HCL 200 MG TABLET GT SCH (09:42)
[2019-12-26] MEDS: LEVETIRACETAM SOL (5 ML) 100 MG/ML UDC GT SCH ×2 (09:43→21:23)
[2019-12-26] MEDS: PROSTAT (PYXIS) 30 ML UDC GT SCH ×3 (09:43→21:23)
[2019-12-26] MEDS: METOPROLOL TARTRATE 50 MG TABLET GT SCH ×2 (09:43→17:00)
[2019-12-26] MEDS: Z GUARD REMEDY 4 OZ OINT TP SCH ×4 (09:44→21:24)
[2019-12-26] MEDS: MULTIVIT W/MINERALS 1 TAB TABLET GT SCH (09:44)
[2019-12-26] MEDS: ACETAMINOPHEN 650 MG/20 ML UDC- SA PATIENTS-PAIN ONLY GT SCH ×2 (09:44→21:24)
[2019-12-26] MEDS: ASCORBIC ACID 500 MG TABLET GT SCH (09:44)
[2019-12-26 10:39] LABS: ABG BASE EXCESS -3.9 mmol/L; ABG OXYGEN SATURATION 96.9 % (92.0-98.5); ABG PCO2 27.7 mmHg (35.0-45.0); ABG PH 7.454 (7.350-7.450); ABG PO2 100.1 mmHg (75.0-100.0); AaDO2 81.3 mmHg; COHb 0.5 % (0.5-1.5); MetHb 0.2 % (0.0-1.5); O2Hb 96.2 % (94.0-97.0); PEEP,BG 5 cm H2O; SITE, ABG Right Radial
[2019-12-26 10:42] LABS: VENT MODE, BG CPAP 5 / PS 12
--- NOTE | 2019-12-26 11:10 | NUR ---
Pt was placed on CPAP PS 12 PEEP +5. ABG result relayed to Dr Fernandes, pH 7.454 pCO2 27.7 pO2 100.1 HCO3 19.0 BE -3.9. Pt tolerating well. No new order.
--- NOTE | 2019-12-26 13:53 | NUR ---
Pt placed on cpap [address] Noland orders. Pt tolerating well with no signs of respiratory distress. Airway is patent and secure. Vent plugged into red outlet with alarms on and audible. Sx as needed. Will continue to monitor pt. Addendum: 12/26/19 at 1357 by EDWIN PRYOR RT Amended: Links added.
[2019-12-26 20:28] VITALS: BP 109/60
[2019-12-26] MEDS: ATORVASTATIN 10 MG TABLET GT SCH (21:23)
[2019-12-26] MEDS: TAMSULOSIN 0.4 MG CAP.SR.24H GT SCH (21:24)
[2019-12-27] MEDS: OMEPRAZOLE 20 MG CAPSULE.DR GT SCH ×2 (06:04→17:57)
[2019-12-27 07:43] VITALS: BP 110/66
[2019-12-27] MEDS: HYDROGEN PEROXIDE 480 ML BOTTLE TP SCH ×2 (09:00→19:24)
[2019-12-27] MEDS: Z GUARD REMEDY 4 OZ OINT TP SCH ×4 (09:00→21:08)
[2019-12-27] MEDS: LEVETIRACETAM SOL (5 ML) 100 MG/ML UDC GT SCH ×2 (09:19→21:07)
[2019-12-27] MEDS: ASCORBIC ACID 500 MG TABLET GT SCH (09:20)
[2019-12-27] MEDS: METOPROLOL TARTRATE 50 MG TABLET GT SCH ×2 (09:20→17:57)
[2019-12-27] MEDS: MULTIVIT W/MINERALS 1 TAB TABLET GT SCH (09:20)
[2019-12-27] MEDS: ACETAMINOPHEN 650 MG/20 ML UDC- SA PATIENTS-PAIN ONLY GT SCH ×2 (09:20→21:07)
[2019-12-27] MEDS: PROSTAT (PYXIS) 30 ML UDC GT SCH ×3 (09:20→21:07)
[2019-12-27] MEDS: AMIODARONE HCL 200 MG TABLET GT SCH (09:20)
[2019-12-27] MEDS: TWOCAL HN 1,000 ML LIQUID GT PRN (17:58)
[2019-12-27 20:04] VITALS: BP 133/77
[2019-12-27] MEDS: ATORVASTATIN 10 MG TABLET GT SCH (21:07)
[2019-12-27] MEDS: TAMSULOSIN 0.4 MG CAP.SR.24H GT SCH (21:08)
[2019-12-27] MEDS: ONDANSETRON 4 MG TAB.RAPDIS GT PRN (23:37)
--- NOTE | 2019-12-27 23:38 | NUR ---
Patient noted with emesis undigested milk,moderate amount. Gastric residual 10 ml,gas noted and vented,suctioned, no aspiration.HOB elevated. Zofran 4 mg given via gt. HOB elated. Will continue to monitor.
[2019-12-28] MEDS: OMEPRAZOLE 20 MG CAPSULE.DR GT SCH ×2 (05:46→17:30)
[2019-12-28 07:36] VITALS: BP 132/97
[2019-12-28] MEDS: AMIODARONE HCL 200 MG TABLET GT SCH (09:13)
[2019-12-28] MEDS: LEVETIRACETAM SOL (5 ML) 100 MG/ML UDC GT SCH ×2 (09:13→21:12)
[2019-12-28] MEDS: MULTIVIT W/MINERALS 1 TAB TABLET GT SCH (09:14)
[2019-12-28] MEDS: METOPROLOL TARTRATE 50 MG TABLET GT SCH ×2 (09:14→17:00)
[2019-12-28] MEDS: PROSTAT (PYXIS) 30 ML UDC GT SCH ×3 (09:14→21:13)
[2019-12-28] MEDS: ASCORBIC ACID 500 MG TABLET GT SCH (09:14)
[2019-12-28] MEDS: ACETAMINOPHEN 650 MG/20 ML UDC- SA PATIENTS-PAIN ONLY GT SCH ×2 (09:14→21:14)
[2019-12-28] MEDS: HYDROGEN PEROXIDE 480 ML BOTTLE TP SCH ×2 (09:33→21:00)
[2019-12-28] MEDS: Z GUARD REMEDY 4 OZ OINT TP SCH ×4 (09:34→21:14)
[2019-12-28] MEDS: ONDANSETRON 4 MG TAB.RAPDIS GT PRN (09:34)
--- NOTE | 2019-12-28 09:41 | NUR ---
Notified Dr Pierre pt vomited twice with shift boss, abdomen distended, afebrile. Received order to hold feedings for 6 hours and start gradually. Also received order to do KUB. Notified pt's son.
--- NOTE | 2019-12-28 11:27 | NUR ---
KUB result showed high grade distal small bowel obstruction. Relayed result to Dr Pierre. He ordered to place pt on NPO, GT to low intermittent suction, GI consult. Relayed KUB result to Dr King and asked him to see pt. He said it is not a GI case and to refer to surgeon because it is a surgical case. Informed Dr Pierre. He ordered to refer to Dr Kishore Mccrary.
--- NOTE | 2019-12-28 12:10 | NUR ---
Asked Dr Pierre if he wanted to order IV fluids for pt since he is NPO at this time. Received order to give D5 1/2 NS at 80 mL/hr IV. Notified Hratch of KUB result and IV fluid order.
[2019-12-28] MEDS ORDERED: IV D5/0.45 NACL 1,000 ML IV PRN (12:30)
--- NOTE | 2019-12-28 13:15 | NUR ---
Called Dr Kishore Mccrary's office. Left message with Alissa.
--- NOTE | 2019-12-28 14:19 | NUR ---
Dr Kishore Mccrary called and said he is not cotton agent today. Notified Dr Howell for GI/surgical consult. Informed him of KUB result.
--- NOTE | 2019-12-28 18:37 | NUR ---
Seen by WIRE DRAWING MACHINE TENDER Rosanna Ferris (for Dr Howell). Received order to do CBC, CMP, Lactic Acid, PT/INR, small bowel follow through. She also ordered to insert an NGT to be connected to low intermittent suction. She explained that there is a risk of bleeding or ulceration if GT is connected to low intermittent suction since the balloon inside also get suctioned which causes pressure on the mucosa. She said she will talk with pt's son and daughter.
[2019-12-28 19:38] LABS: ALANINE AMINOTRANSFERASE 22 U/L (12-78); ALBUMIN 2.4 g/dL (3.4-5.0); ALKALINE PHOSPHATASE 127 U/L (46-116); ASPARTATE AMINOTRANSFERASE 14 U/L (15-37); BILIRUBIN,TOTAL 0.3 mg/dL (0.2-1.0); CALCIUM, SERUM 8.9 mg/dL (8.5-10.1); CARBON DIOXIDE 24 mmol/L (21-32); CHLORIDE 101 mmol/L (98-107); CREATININE 1.4 mg/dL (0.6-1.3); GLUCOSE 125 mg/dL (74-106); POTASSIUM 4.3 mmol/L (3.5-5.1); SODIUM SERUM 137 mmol/L (136-145); TOTAL PROTEIN, SERUM 7.3 g/dL (6.4-8.2); UREA NITROGEN, BLOOD 39 mg/dL (7-18)
[2019-12-28 20:16] VITALS: BP_SYST 127; BP_SYST 95; BP_DIAS 59; BP_DIAS 65
[2019-12-28 20:33] LABS: BASOPHILS % (AUTO) 0.7 % (0.0-2.0); EOSINOPHILS % (AUTO) 2.9 % (0.0-6.0); HEMATOCRIT 27 % (39-51); HEMOGLOBIN 8.9 g/dL (13.5-17.5); LYMPHOCYTES # (AUTO) 1.1 /CMM (0.8-4.8); MEAN CORPUSCULAR HGB CONC 33 g/dl (31.0-36.0); MEAN CORPUSCULAR VOLUME 87 fL (80-96); MONOCYTES # (AUTO) 0.5 /CMM (0.1-1.30); MONOCYTES % (AUTO) 8.9 % (2.0-12.0); NEUTROPHILS % (AUTO) 68.5 % (43.0-81.0); PLATELET COUNT (AUTO) 270 /CMM (150-450); RED BLOOD CELL COUNT(AUTO) 3.15 MIL/uL (4.5-6.0); WHITE BLOOD COUNT (AUTO) 5.8 K/uL (4.3-11.0)
--- NOTE | 2019-12-28 21:00 | NUR ---
Relayed labs results to CIRCUS AGENT Rosanna Ferris, CBC, BMP ,PT INR,lactic Acid 4.0 high,she said informed primary physician.
--- NOTE | 2019-12-28 21:05 | NUR ---
Notified of labs results that EMMANUEL Marte ordered earlier. With new orders to d/c D5 1/2 NS ans give NS 500 ml IV bolus x 1 then start D5 NS 125ml/hr , Start Rocephin 1 gm IV now the q 24 hrs, Metronidazole 500 mg IV q 8 hrs. XR small bowel follow through,low intermittent suction.keep the bed elevated. Will carry out orders. Latest BP 95/59,HR 70,Temp 98.1 O2 sats 96%. will continue to monitor.
[2019-12-28] MEDS: ATORVASTATIN 10 MG TABLET GT SCH (21:13)
[2019-12-28] MEDS: TAMSULOSIN 0.4 MG CAP.SR.24H GT SCH (21:15)
[2019-12-28 21:26] LABS: BILIRUBIN,DIRECT 0.1 mg/dL (0.0-0.2)
[2019-12-28] MEDS: METRONIDAZOLE 500MG/ NS 100ML 500 MG in PREMIX 1 EA IV SCH (21:30)
[2019-12-28] MEDS ORDERED: IV NS 0.9% 500 ML IV ONE (21:30)
--- NOTE | 2019-12-28 21:30 | NUR ---
Patient son Hratch made aware of new orders and updated with patient condition. Appreciative of the call.
[2019-12-28] MEDS: CEFTRIAXONE 1 G in IV D5W 50 ML IV SCH (22:00)
--- NOTE | 2019-12-28 22:28 | NUR ---
Spoke to Chung Iglesias pharmacist he said all IV medications covered by insurance. First dose will be from the 'E' kit.
[2019-12-29] MEDS: IV D5/ 0.9% NACL 1,000 ML IV PRN ×3 (00:06→19:25)
--- NOTE | 2019-12-29 00:14 | NUR ---
Received order from EMMANUEL Ferris for GI consult in AM.
[2019-12-29] MEDS: METRONIDAZOLE 500MG/ NS 100ML 500 MG in PREMIX 1 EA IV SCH ×3 (05:00→21:15)
[2019-12-29] MEDS: OMEPRAZOLE 20 MG CAPSULE.DR GT SCH ×2 (05:43→18:44)
--- NOTE | 2019-12-29 06:27 | NUR ---
Patient stable during the night,afebrile, no respiratory distress,no emesis. Gastric output from intermittent suctioned @ 150ml .Kept HOB elevated will continue to monitor.
[2019-12-29 07:19] VITALS: BP 153/75
[2019-12-29] MEDS: HYDROGEN PEROXIDE 480 ML BOTTLE TP SCH ×2 (08:40→20:43)
--- NOTE | 2019-12-29 08:55 | NUR ---
Pt received on current settings. No signs of respiratory distress noted. Airway is patent and secure. Vent is plugged into the red outlet with alarms on and audible. Suction as needed. Will continue to monitor pt. Addendum: 12/29/19 at 0856 by EDWIN PRYOR RT Amended: Links added.
[2019-12-29] MEDS ORDERED: DIATR MEGLU/DIATRIZOATE SODIUM 120 ML BOTTLE (GASTROGRAPHIN) ONE (09:33)
[2019-12-29] MEDS: LEVETIRACETAM SOL (5 ML) 100 MG/ML UDC GT SCH ×2 (09:39→20:43)
[2019-12-29] MEDS: AMIODARONE HCL 200 MG TABLET GT SCH (09:39)
[2019-12-29] MEDS: METOPROLOL TARTRATE 50 MG TABLET GT SCH ×2 (09:40→17:00)
[2019-12-29] MEDS: PROSTAT (PYXIS) 30 ML UDC GT SCH ×3 (09:40→20:43)
[2019-12-29] MEDS: Z GUARD REMEDY 4 OZ OINT TP SCH ×4 (09:40→20:44)
[2019-12-29] MEDS: ACETAMINOPHEN 650 MG/20 ML UDC- SA PATIENTS-PAIN ONLY GT SCH ×2 (09:40→20:43)
[2019-12-29] MEDS: ASCORBIC ACID 500 MG TABLET GT SCH (09:40)
[2019-12-29] MEDS: MULTIVIT W/MINERALS 1 TAB TABLET GT SCH (09:40)
--- NOTE | 2019-12-29 10:00 | NUR ---
Left a message to Dr. King reminding him of GI consult for patient.
--- NOTE | 2019-12-29 10:55 | NUR ---
Seen and examined by Dr. King, collet maker. Small bowel follow through being done at the moment, no new order given at this time. Continue to receive IVF D5 1/2 NS at 125 cc/hr., IV ATB Flagyl and Rocephin with no adverse reaction observed. No vomiting episode at this time.
--- NOTE | 2019-12-29 16:50 | NUR ---
Made a follow-up call with radiology department regarding result of of small bowel follow-through, staff said that they are not done, another x-ray will be taken around 1700. Patient stable, not in distress and no vomiting episode.
--- NOTE | 2019-12-29 18:50 | NUR ---
Radiologist performed another follow-up xray for SBFT, according to the tech he does not know if this will be the last x-ray, depending on the doctor once result is read. Endorsed.
--- NOTE | 2019-12-29 20:35 | NUR ---
RECEIVED TRACH PAT[facility] V[facility] WITH NOTED SETTINGS PER MD ORDERS. TRACH CARE DONE. TRACH IS PATENT AND SECURED. SX DONE PRN. ALARMS ARE ON AND AUDIBLE. VENT IS PLUGGED INTO RED OUTLET WITH AMBU BAG AT BEDSIDE. NO RESP DISTRESS NOTED AT THIS TIME. WILL CONT TO MONITOR PT T/O SHIFT.
[2019-12-29] MEDS: ATORVASTATIN 10 MG TABLET GT SCH (20:43)
[2019-12-29 21:14] VITALS: BP 138/69
[2019-12-29] MEDS: TAMSULOSIN 0.4 MG CAP.SR.24H GT SCH (21:15)
[2019-12-29] MEDS: CEFTRIAXONE 1 G in IV D5W 50 ML IV SCH (21:57)
--- NOTE | 2019-12-30 00:30 | NUR ---
SUBACUTE RN NOTE: PATIENT NOTED WITH SMALL AMOUNT OF CLEAR VOMIT. HOB ELEVATED. PATIENT GTUBE FLUSHES HELD AT THIS TIME. WILL CONTINUE TO MONITOR.
[2019-12-30] MEDS: IV D5/ 0.9% NACL 1,000 ML IV PRN ×2 (04:21→13:04)
[2019-12-30] MEDS: OMEPRAZOLE 20 MG CAPSULE.DR GT SCH ×2 (05:35→17:02)
[2019-12-30] MEDS: METRONIDAZOLE 500MG/ NS 100ML 500 MG in PREMIX 1 EA IV SCH ×2 (05:35→12:51)
--- NOTE | 2019-12-30 06:05 | NUR ---
Patient had 2x episodes of emesis greenish in color approximately 300ml.HOB elevated and suctioned ,no aspiration noted. Gastric output via low intermittent suction @ 600ml.Small bowel follow through results still pending. Will continue to monitor and will endorse.
--- NOTE | 2019-12-30 06:45 | NUR ---
SUBACUTE RN NOTE: PATIENT HAD EPISODES OF EMESIS. HOB ELEVATED. MORNING MEDICATIONS HELD AT THIS TIME. PATIENT GTUBE FLUSHES HELD AT THIS TIME. WILL CONTINUE TO MONITOR.
[2019-12-30 07:40] VITALS: BP 128/76
--- NOTE | 2019-12-30 08:28 | NUR ---
Pt received on current settings. Airway is patent and secure with no signs of respiratory distress. No HHN TX indicated. Vent is plugged into red outlet with alarms on and audible. Sx pt as needed. Will continue to monitor. Addendum: 12/30/19 at 0829 by EDWIN PRYOR RT Amended: Links added.
[2019-12-30] MEDS: HYDROGEN PEROXIDE 480 ML BOTTLE TP SCH ×2 (08:42→20:09)
[2019-12-30] MEDS: LEVETIRACETAM SOL (5 ML) 100 MG/ML UDC GT SCH ×2 (09:36→21:11)
[2019-12-30] MEDS: AMIODARONE HCL 200 MG TABLET GT SCH (09:36)
[2019-12-30] MEDS: PROSTAT (PYXIS) 30 ML UDC GT SCH ×3 (09:37→21:12)
[2019-12-30] MEDS: ACETAMINOPHEN 650 MG/20 ML UDC- SA PATIENTS-PAIN ONLY GT SCH ×2 (09:37→21:12)
[2019-12-30] MEDS: Z GUARD REMEDY 4 OZ OINT TP SCH ×3 (09:37→21:12)
[2019-12-30] MEDS: MULTIVIT W/MINERALS 1 TAB TABLET GT SCH (09:37)
[2019-12-30] MEDS: METOPROLOL TARTRATE 50 MG TABLET GT SCH ×2 (09:37→16:13)
[2019-12-30] MEDS: ASCORBIC ACID 500 MG TABLET GT SCH (09:37)
--- NOTE | 2019-12-30 10:00 | NUR ---
Left a message to Derderian updating him of patient current condition. Patient vomited x2 last night, SBFT result still pending, feeding remain on hold except for meds while IVF continue.
--- NOTE | 2019-12-30 12:24 | NUR ---
Made a follow-up call with radiology department, spoke with Lorrie to obtain SBFT result she said that they called radiologist but no response. She will follow-up and will call me back. Resident has no episode of vomiting at this time.
--- NOTE | 2019-12-30 15:15 | NUR ---
Left small bowel follow trough result to both Dr. King (GI) and Dr. Howell (Surgery) in which findings represent ileus or partial bowel obstruction. Informed MD that patient had vomiting episode x 2 last night and x1 this shift. Large output obtain from low intermittent suctioning. Awaiting for response.
--- NOTE | 2019-12-30 15:30 | NUR ---
Resident seen by Rosanna Ferris, EMMANUEL, covering for Dr. Howell, surgeon. Reviewed labs and SBFT results. She called and discussed patient's health condition including result of SBFT with patient's son Hratch. BELLY PACKER was able to obtain relevant information pertaining to patient's medical history especially abdominal surgery which is significant to his problem at this time. Based on what was discussed, the family would like to continue conservative treatment According to BELLY PACKER, she will order repeat KUB in AM and labs today. EMMANUEL Marte also left a message to patient's daughter Shae. Shae called after BELLY PACKER left but verbalized she will call her cell phone which she left in her VM.
[2019-12-30] MEDS: ONDANSETRON 4 MG TAB.RAPDIS GT PRN (15:58)
[2019-12-30 16:15] VITALS: BP 93/56
[2019-12-30 17:04] LABS: BASOPHILS % (AUTO) 0.8 % (0.0-2.0); EOSINOPHILS % (AUTO) 2.4 % (0.0-6.0); HEMATOCRIT 29 % (39-51); HEMOGLOBIN 9.5 g/dL (13.5-17.5); LYMPHOCYTES # (AUTO) 0.6 /CMM (0.8-4.8); LYMPHOCYTES % (AUTO) 10.6 % (20.0-44.0); MEAN CORPUSCULAR HGB CONC 33 g/dl (31.0-36.0); MEAN CORPUSCULAR VOLUME 87 fL (80-96); MONOCYTES # (AUTO) 0.4 /CMM (0.1-1.30); MONOCYTES % (AUTO) 6.9 % (2.0-12.0); NEUTROPHILS # (AUTO) 4.7 /CMM (1.8-8.9); NEUTROPHILS % (AUTO) 79.3 % (43.0-81.0); PLATELET COUNT (AUTO) 298 /CMM (150-450); RED BLOOD CELL COUNT(AUTO) 3.31 MIL/uL (4.5-6.0); WHITE BLOOD COUNT (AUTO) 5.9 K/uL (4.3-11.0)
[2019-12-30 17:17] LABS: ALANINE AMINOTRANSFERASE 18 U/L (12-78); ALBUMIN 2.5 g/dL (3.4-5.0); ALKALINE PHOSPHATASE 121 U/L (46-116); ASPARTATE AMINOTRANSFERASE 14 U/L (15-37); BILIRUBIN,TOTAL 0.2 mg/dL (0.2-1.0); CALCIUM, SERUM 8.8 mg/dL (8.5-10.1); CARBON DIOXIDE 21 mmol/L (21-32); CHLORIDE 109 mmol/L (98-107); CREATININE 1.4 mg/dL (0.6-1.3); GLUCOSE 142 mg/dL (74-106); SODIUM SERUM 145 mmol/L (136-145); TOTAL PROTEIN, SERUM 7.5 g/dL (6.4-8.2); UREA NITROGEN, BLOOD 23 mg/dL (7-18)
[2019-12-30 17:23] LABS: POTASSIUM 2.7 mmol/L (3.5-5.1)
--- NOTE | 2019-12-30 17:54 | NUR ---
Received a critical K+ result 2.7 and Lactic acid 3.3, notified Dr. Pierre of CBC and BMP result with new order to give Potassium 60 meq IV x1. Faxed order to [facility] and [facility] pharmacy. Resident's son Hratch notified of new order and lab result.
--- NOTE | 2019-12-30 18:40 | NUR ---
Requested MEASURING MACHINE TENDER Bina to review patient's ATB and lab result, she said she may have to change ATB. [facility] pharmacy to provide IV K+ and will send it as soon as possible. Endorsed to incoming shift.
[2019-12-30] MEDS ORDERED: POTASSIUM CL. PREMIX PERIPHER. 50 ML IV SCH (18:54)
[2019-12-30 19:29] LABS: BILIRUBIN,DIRECT 0.1 mg/dL (0.0-0.2)
[2019-12-30] MEDS ORDERED: PIPERACILLIN /TAZOBACTAM 3.375 G in IV D5W 50 ML IV ONE (20:00)
[2019-12-30 20:59] VITALS: BP 98/57
[2019-12-30] MEDS: ATORVASTATIN 10 MG TABLET GT SCH (21:11)
[2019-12-30] MEDS: TAMSULOSIN 0.4 MG CAP.SR.24H GT SCH (21:12)
--- NOTE | 2019-12-31 | NUR ---
Zosyn 3.375 IV first dose given at 0000 from Ekit.
--- NOTE | 2019-12-31 02:00 | NUR ---
Potassium Chloride 10Meq given at 2000,2100,2200,2300,0000,and 0100 for a total of 60Meq
--- NOTE | 2019-12-31 02:34 | NUR ---
Charge nurse called "Person to Notify" Hratch Prudencio [phone]. no one picked up. left a voicemail with call back number.
--- NOTE | 2019-12-31 03:55 | NUR ---
RT NOTE RECEIVED PATIENT ON MECHANICAL VENT WITH ORDERED SETTINGS. ALARMS ON AND AUDIBLE. VENT PLUGGED IN TO THE RED OUTLET. TRACH TUBE IN PLACE, PATENT, AND SECURED WITH TRACH TIE. AMBU BAG AND BACK UP TRACH BY THE BEDSIDE. NO SIGNS OF ANY DISTRESS AT THIS TIME.
[2019-12-31] MEDS: OMEPRAZOLE 20 MG CAPSULE.DR GT SCH ×2 (05:24→17:03)
[2019-12-31 07:38] VITALS: BP 159/81
[2019-12-31 07:41] LABS: CALCIUM, SERUM 8.7 mg/dL (8.5-10.1); CARBON DIOXIDE 20 mmol/L (21-32); CHLORIDE 109 mmol/L (98-107); CREATININE 1.6 mg/dL (0.6-1.3); GLUCOSE 141 mg/dL (74-106); POTASSIUM 3.8 mmol/L (3.5-5.1); SODIUM SERUM 144 mmol/L (136-145); UREA NITROGEN, BLOOD 24 mg/dL (7-18)
[2019-12-31] MEDS: PIPERACILLIN /TAZOBACTAM 3.375 G in IV D5W 100 ML IV SCH ×4 (08:00→16:00)
[2019-12-31] MEDS: AMIODARONE HCL 200 MG TABLET GT SCH (08:36)
[2019-12-31] MEDS: LEVETIRACETAM SOL (5 ML) 100 MG/ML UDC GT SCH ×2 (08:36→20:38)
[2019-12-31] MEDS: Z GUARD REMEDY 4 OZ OINT TP SCH ×2 (08:37→20:38)
[2019-12-31] MEDS: PROSTAT (PYXIS) 30 ML UDC GT SCH ×3 (08:37→20:38)
[2019-12-31] MEDS: MULTIVIT W/MINERALS 1 TAB TABLET GT SCH (08:37)
[2019-12-31] MEDS: METOPROLOL TARTRATE 50 MG TABLET GT SCH ×2 (08:37→17:03)
[2019-12-31] MEDS: ASCORBIC ACID 500 MG TABLET GT SCH (08:37)
[2019-12-31] MEDS: ACETAMINOPHEN 650 MG/20 ML UDC- SA PATIENTS-PAIN ONLY GT SCH ×2 (08:37→20:38)
[2019-12-31] MEDS: HYDROGEN PEROXIDE 480 ML BOTTLE TP SCH ×2 (09:00→21:48)
[2019-12-31 13:04] LABS: MAGNESIUM 2.3 mg/dL (1.8-2.4); PHOSPHORUS 4.6 mg/dL (2.5-4.9)
--- NOTE | 2019-12-31 14:00 | NUR ---
Seen ands examined by EMMANUEL Marte,reviewed lab results and x-ray of abdomen result. Noted with low urine output, 150 cc since 7am. Ordered 500 cc NS IV bolus, given. No vomiting. Gastric drainage from GT suction is 300 cc since 7am. Afebrile. Stable vital signs.
--- NOTE | 2019-12-31 14:15 | NUR ---
Dr. Pierre informed regarding Rosanna, GUIDE DOG MOBILITY INSTRUCTOR order due to low urine output. Also relayed BMP result, x-ray of abdomen result with order to repeat BMP in am.
[2019-12-31] MEDS: IV D5/ 0.9% NACL 1,000 ML IV PRN (14:27)
--- NOTE | 2019-12-31 14:47 | NUR ---
Phosphorus and mg result relayed to EMMANUEL Marte, no new order given.
[2019-12-31] MEDS ORDERED: IV NS 0.9% 500 ML IV ONE (15:00)
[2019-12-31 19:59] VITALS: BP 107/55
[2019-12-31] MEDS: ATORVASTATIN 10 MG TABLET GT SCH (20:38)
--- NOTE | 2019-12-31 22:14 | NUR ---
PT RECEIVE STABLE ON MV, SETTINGS ARE CPAP PS 12 +5 , VENT PLUG IN RED OUTLET, TRACH PATENT AND SECURED, AMBU BAG AND SPARE TRACH IS AT BEDSIDE, WILL CONTINUE TO MONITOR Addendum: 12/31/19 at 2215 by RAHUL CRUZ RT Amended: Links added.
[2019-12-31] MEDS: TAMSULOSIN 0.4 MG CAP.SR.24H GT SCH (22:27)
[2020-01-01] MEDS: OMEPRAZOLE 20 MG CAPSULE.DR GT SCH ×2 (05:06→17:00)
[2020-01-01 07:11] LABS: BASOPHILS % (AUTO) 0.7 % (0.0-2.0); EOSINOPHILS % (AUTO) 4.2 % (0.0-6.0); HEMATOCRIT 28 % (39-51); HEMOGLOBIN 8.8 g/dL (13.5-17.5); LYMPHOCYTES # (AUTO) 0.9 /CMM (0.8-4.8); LYMPHOCYTES % (AUTO) 12.7 % (20.0-44.0); MEAN CORPUSCULAR HGB CONC 32 g/dl (31.0-36.0); MEAN CORPUSCULAR VOLUME 88 fL (80-96); MONOCYTES # (AUTO) 0.4 /CMM (0.1-1.30); MONOCYTES % (AUTO) 5.4 % (2.0-12.0); NEUTROPHILS # (AUTO) 5.5 /CMM (1.8-8.9); PLATELET COUNT (AUTO) 255 /CMM (150-450); RED BLOOD CELL COUNT(AUTO) 3.14 MIL/uL (4.5-6.0); WHITE BLOOD COUNT (AUTO) 7.2 K/uL (4.3-11.0)
[2020-01-01 07:29] LABS: ALANINE AMINOTRANSFERASE 17 U/L (12-78); ALBUMIN 2.4 g/dL (3.4-5.0); ALKALINE PHOSPHATASE 109 U/L (46-116); ASPARTATE AMINOTRANSFERASE 12 U/L (15-37); BILIRUBIN,TOTAL 0.3 mg/dL (0.2-1.0); CALCIUM, SERUM 8.4 mg/dL (8.5-10.1); CARBON DIOXIDE 19 mmol/L (21-32); CHLORIDE 111 mmol/L (98-107); CREATININE 1.7 mg/dL (0.6-1.3); GLUCOSE 119 mg/dL (74-106); MAGNESIUM 2.2 mg/dL (1.8-2.4); PHOSPHORUS 4.9 mg/dL (2.5-4.9); POTASSIUM 3.1 mmol/L (3.5-5.1); SODIUM SERUM 146 mmol/L (136-145); UREA NITROGEN, BLOOD 25 mg/dL (7-18)
[2020-01-01 07:49] VITALS: BP 117/60
[2020-01-01] MEDS: PIPERACILLIN /TAZOBACTAM 3.375 G in IV D5W 100 ML IV SCH ×4 (08:52→16:14)
[2020-01-01] MEDS: IV D5/ 0.9% NACL 1,000 ML IV PRN (08:52)
[2020-01-01] MEDS: HYDROGEN PEROXIDE 480 ML BOTTLE TP SCH ×2 (09:00→21:23)
[2020-01-01] MEDS: LEVETIRACETAM SOL (5 ML) 100 MG/ML UDC GT SCH ×2 (09:19→21:13)
[2020-01-01] MEDS: MULTIVIT W/MINERALS 1 TAB TABLET GT SCH (09:19)
[2020-01-01] MEDS: ASCORBIC ACID 500 MG TABLET GT SCH (09:19)
[2020-01-01] MEDS: METOPROLOL TARTRATE 50 MG TABLET GT SCH ×2 (09:19→16:56)
[2020-01-01] MEDS: PROSTAT (PYXIS) 30 ML UDC GT SCH ×3 (09:19→21:13)
[2020-01-01] MEDS: ACETAMINOPHEN 650 MG/20 ML UDC- SA PATIENTS-PAIN ONLY GT SCH ×2 (09:19→21:15)
[2020-01-01] MEDS: AMIODARONE HCL 200 MG TABLET GT SCH (09:19)
--- NOTE | 2020-01-01 10:18 | NUR ---
RT NOTE RECEIVED PT MECHANICALLY VENTILATED VIA CUFFED TRACHEOSTOMY TUBE. CUFF INFLATED. TRACH TUBE MIDLINE AND SECURE. VENTILATOR SETTINGS PRESCRIBED. ALARMS SET PER PROTOCOL AND AUDIBLE. VENT PLUGGED IN TO RED OUTLET. AMBU BAG AND BACK UP TRACH AT BED SIDE. NO DISTRESS NOTED. Addendum: 01/01/20 at 1018 by LEONCIO BHATIA RT Amended: Links added.
--- NOTE | 2020-01-01 12:10 | NUR ---
Relayed BMP result to Dr Pierre and EMMANUEL Ferris.
--- NOTE | 2020-01-01 12:30 | NUR ---
Dr Pierre ordered to give Potassium Chloride 20 mEq via GT x 1 for K 3.1. Notified Hratch.
[2020-01-01] MEDS ORDERED: POTASSIUM CHLORIDE 20 MEQ POWDER PACKET GT ONE (13:00)
[2020-01-01] MEDS: TWOCAL HN 1,000 ML LIQUID GT PRN (17:00)
--- NOTE | 2020-01-01 17:37 | NUR ---
Seen by EMMANUEL Ferris. She ordered to restart GT feeding gradually. Started feeding at 10 mL/hr.
[2020-01-01 17:38] LABS: APPEARANCE,URINE SL CLOUDY (CLEAR); BILIRUBIN,URINE NEGATIVE (NEGATIVE); BLOOD, URINE NEGATIVE Ery/uL (NEGATIVE); COLOR,URINE YELLOW (YELLOW); KETONES,URINE NEGATIVE (NEGATIVE); LEUKOCYTE ESTERASE ,URINE TRACE (NEGATIVE); NITRITE, URINE NEGATIVE (NEGATIVE); PH,URINE 5.5 (5.0-8.0); PROTEIN,URINE NEGATIVE (NEGATIVE); UGLUCOSE NEGATIVE (NEGATIVE); UROBILINOGEN,URINE 0.2 EU/dL (0.2)
[2020-01-01 17:42] LABS: CREATININE, URINE 119.7 MG/DL (30.0-125.0); URINE TOTAL PROTEIN 45.8 mg/dL (0-11.9)
[2020-01-01 18:12] LABS: BACTERIA,URINE 1+ /HPF (None Seen); RBC,URINE 0-2 /HPF (0-2); SQUAMOUS EPITHELIAL CELL,UR Few /HPF (None Seen); YEAST,URINE Moderate /HPF (None Seen)
[2020-01-01 18:55] LABS: EOSINOPHIL,URINE None Seen
[2020-01-01 19:49] VITALS: BP 135/68
[2020-01-01] MEDS: ATORVASTATIN 10 MG TABLET GT SCH (21:13)
[2020-01-01] MEDS: TAMSULOSIN 0.4 MG CAP.SR.24H GT SCH (21:15)
--- NOTE | 2020-01-01 22:30 | NUR ---
RN NOTES Noted pt with episode of large emesis. Pt received 120ml of feeding. Did not tolerate. Feeding held. Will continue to monitor.
[2020-01-01] MEDS: ONDANSETRON 4 MG TAB.RAPDIS GT PRN (22:57)
[2020-01-02] MEDS: OMEPRAZOLE 20 MG CAPSULE.DR GT SCH ×2 (05:10→17:21)
[2020-01-02 07:44] VITALS: BP 117/93
[2020-01-02] MEDS: IV D5/ 0.9% NACL 1,000 ML IV PRN ×2 (08:00→20:00)
[2020-01-02] MEDS: PIPERACILLIN /TAZOBACTAM 3.375 G in IV D5W 100 ML IV SCH ×4 (08:00→16:27)
[2020-01-02] MEDS: HYDROGEN PEROXIDE 480 ML BOTTLE TP SCH ×2 (09:00→21:34)
[2020-01-02] MEDS: METOPROLOL TARTRATE 50 MG TABLET GT SCH ×2 (09:52→17:21)
[2020-01-02] MEDS: PROSTAT (PYXIS) 30 ML UDC GT SCH ×3 (09:52→20:44)
[2020-01-02] MEDS: ACETAMINOPHEN 650 MG/20 ML UDC- SA PATIENTS-PAIN ONLY GT SCH ×2 (09:52→20:45)
[2020-01-02] MEDS: AMIODARONE HCL 200 MG TABLET GT SCH (09:52)
[2020-01-02] MEDS: ASCORBIC ACID 500 MG TABLET GT SCH (09:52)
[2020-01-02] MEDS: MULTIVIT W/MINERALS 1 TAB TABLET GT SCH (09:52)
[2020-01-02] MEDS: LEVETIRACETAM SOL (5 ML) 100 MG/ML UDC GT SCH ×2 (09:52→20:44)
--- NOTE | 2020-01-02 11:39 | NUR ---
Informed EMMANUEL Ferris that pt's feeding was being given at 20 mL/hr last night and pt vomited twice per endorsement. EMMANUEL Ferris said to call GI. Left message for Dr Solorzano [phone].
--- NOTE | 2020-01-02 12:00 | NUR ---
Notified ASSEMBLER DIELECTRIC HEATER Rosanna Ferris asked if pt is having residuals. Informed her that pt has about 40 mL of gastric residual. GT feeding has been running at 20 mL/hr for 2 hours.
--- NOTE | 2020-01-02 18:07 | NUR ---
Pt has 50 mL gastric residual. No vomiting noted. GT feeding at 20 mL/hr.
--- NOTE | 2020-01-02 18:45 | NUR ---
Called pt's son Hrzach. Informed him that feeding has been restarted and pt did not vomit today. Hratch expressed appreciation.
--- NOTE | 2020-01-02 20:00 | NUR ---
RN NOTES Received pt on GTF Two Haim @20ml/hr, tolerating well. Will continue to monitor.
[2020-01-02 20:02] VITALS: BP 142/68
--- NOTE | 2020-01-02 20:02 | NUR ---
RT NOTE PT RCYEBOAH'D ON MECHANICAL VENT WITH MD ORDERED SETTINGS. VENT PLUGGED INTO RED OUTLET. AMBU BAG/ BACKUP TRACH AT BEDSIDE. NO SOB NOTED AT THIS TIME. WILL CONTINUE TO MONITOR CLOSELY Addendum: 01/02/20 at 2002 by BENIGNO RAMIREZ RT Amended: Links added.
[2020-01-02] MEDS: ATORVASTATIN 10 MG TABLET GT SCH (20:44)
[2020-01-02] MEDS: TAMSULOSIN 0.4 MG CAP.SR.24H GT SCH (21:49)
[2020-01-03] MEDS: PIPERACILLIN /TAZOBACTAM 3.375 G in IV D5W 100 ML IV SCH ×2
--- NOTE | 2020-01-03 05:00 | NUR ---
RN NOTES No vomiting throughout shift. Tolerating feeding well.
[2020-01-03] MEDS: OMEPRAZOLE 20 MG CAPSULE.DR GT SCH ×2 (06:06→17:34)
[2020-01-03] MEDS: IV D5/ 0.9% NACL 1,000 ML IV PRN ×2 (06:53→15:51)
[2020-01-03] MEDS: HYDROGEN PEROXIDE 480 ML BOTTLE TP SCH ×2 (07:28→19:58)
[2020-01-03 07:47] VITALS: BP 140/67
[2020-01-03] MEDS: AMIODARONE HCL 200 MG TABLET GT SCH (08:54)
[2020-01-03] MEDS: LEVETIRACETAM SOL (5 ML) 100 MG/ML UDC GT SCH ×2 (08:54→20:43)
[2020-01-03] MEDS: MULTIVIT W/MINERALS 1 TAB TABLET GT SCH (08:55)
[2020-01-03] MEDS: ACETAMINOPHEN 650 MG/20 ML UDC- SA PATIENTS-PAIN ONLY GT SCH ×2 (08:55→20:43)
[2020-01-03] MEDS: METOPROLOL TARTRATE 50 MG TABLET GT SCH ×2 (08:55→17:34)
[2020-01-03] MEDS: PROSTAT (PYXIS) 30 ML UDC GT SCH ×3 (08:55→20:43)
[2020-01-03] MEDS: ASCORBIC ACID 500 MG TABLET GT SCH (08:55)
--- NOTE | 2020-01-03 14:05 | NUR ---
ALONDRA communicated to Dr. Pierre that the patients daughter, Shae [phone] Pierre get in contact with the patients PCP, Dr. Jr Terrell to discuss the patients Hx of Prostate Cancer and if Tx: (IV Chemo & Lupron Injection) should be continued. ALONDRA will follow up as needed.
--- NOTE | 2020-01-03 14:06 | NUR ---
Family invitation to video chat with patient: This SW called the patient's daughter, Shae Snyder [phone] to inform her that video chat is now an alternative option for family/patient interaction due to Coronavirus recent visitation restrictions. Shae stated that she appreciated the notice however, she would prefer to continue getting phone updates from nurses bout the patient's condition and plan of care as the patient is non-communicative. Noted.
--- NOTE | 2020-01-03 17:18 | NUR ---
Noted an electronic order from Dr. Mccrary for CBC, BMP, Mg and Phos and Lactic Acid in AM. Orders noted and carried out.
[2020-01-03 19:59] VITALS: BP 134/76
[2020-01-03] MEDS: ATORVASTATIN 10 MG TABLET GT SCH (20:43)
[2020-01-03] MEDS: TAMSULOSIN 0.4 MG CAP.SR.24H GT SCH (21:48)
[2020-01-04] MEDS: IV D5/ 0.9% NACL 1,000 ML IV PRN ×2 (00:24→10:00)
[2020-01-04] MEDS: OMEPRAZOLE 20 MG CAPSULE.DR GT SCH ×2 (06:06→17:04)
--- NOTE | 2020-01-04 06:31 | NUR ---
Patient had no episodes of emesis.Will continue to monitor.
[2020-01-04 06:37] LABS: BASOPHILS % (AUTO) 0.3 % (0.0-2.0); HEMATOCRIT 27 % (39-51); HEMOGLOBIN 8.6 g/dL (13.5-17.5); LYMPHOCYTES # (AUTO) 0.8 /CMM (0.8-4.8); LYMPHOCYTES % (AUTO) 10.1 % (20.0-44.0); MEAN CORPUSCULAR HGB CONC 32 g/dl (31.0-36.0); MEAN CORPUSCULAR VOLUME 89 fL (80-96); MONOCYTES # (AUTO) 0.5 /CMM (0.1-1.30); MONOCYTES % (AUTO) 6.7 % (2.0-12.0); NEUTROPHILS # (AUTO) 6.3 /CMM (1.8-8.9); NEUTROPHILS % (AUTO) 80.9 % (43.0-81.0); PLATELET COUNT (AUTO) 222 /CMM (150-450); WHITE BLOOD COUNT (AUTO) 7.8 K/uL (4.3-11.0)
[2020-01-04 06:50] LABS: CALCIUM, SERUM 7.8 mg/dL (8.5-10.1); CARBON DIOXIDE 20 mmol/L (21-32); CHLORIDE 113 mmol/L (98-107); CREATININE 0.9 mg/dL (0.6-1.3); GLUCOSE 124 mg/dL (74-106); MAGNESIUM 1.7 mg/dL (1.8-2.4); PHOSPHORUS 2.5 mg/dL (2.5-4.9); POTASSIUM 3.5 mmol/L (3.5-5.1); SODIUM SERUM 146 mmol/L (136-145); UREA NITROGEN, BLOOD 10 mg/dL (7-18)
[2020-01-04 07:46] VITALS: BP 121/58
[2020-01-04] MEDS: PROSTAT (PYXIS) 30 ML UDC GT SCH ×3 (08:58→20:34)
[2020-01-04] MEDS: AMIODARONE HCL 200 MG TABLET GT SCH (08:58)
[2020-01-04] MEDS: LEVETIRACETAM SOL (5 ML) 100 MG/ML UDC GT SCH ×2 (08:58→20:34)
[2020-01-04] MEDS: METOPROLOL TARTRATE 50 MG TABLET GT SCH ×2 (08:58→17:04)
[2020-01-04] MEDS: ASCORBIC ACID 500 MG TABLET GT SCH (08:59)
[2020-01-04] MEDS: MULTIVIT W/MINERALS 1 TAB TABLET GT SCH (08:59)
[2020-01-04] MEDS: ACETAMINOPHEN 650 MG/20 ML UDC- SA PATIENTS-PAIN ONLY GT SCH ×2 (08:59→20:35)
[2020-01-04] MEDS: Z GUARD REMEDY 2 OZ OINT TP SCH ×2 (09:00→20:35)
--- NOTE | 2020-01-04 09:15 | NUR ---
Relayed lab result to Dr Walton. No new order.
[2020-01-04] MEDS: HYDROGEN PEROXIDE 480 ML BOTTLE TP SCH ×2 (09:55→21:13)
[2020-01-04] MEDS ORDERED: Magnesium 1GM/D5W 100ML PREMIX 100 ML IV SCH (10:55)
[2020-01-04 10:56] LABS: BILIRUBIN,DIRECT 0.1 mg/dL (0.0-0.2); BILIRUBIN,TOTAL 0.1 mg/dL (0.2-1.0)
--- NOTE | 2020-01-04 11:10 | NUR ---
Received order to give Magnesium 1 gm IV x 1 for hypomagnesemia.
--- NOTE | 2020-01-04 11:55 | NUR ---
Received order to DC Magnesium 1 gm IV x 1, instead give Magnesium Oxide 400 mg GT x 1 for hypomagnesemia.
[2020-01-04] MEDS ORDERED: MAGNESIUM OXIDE 400 MG TABLET PO ONE (12:00)
--- NOTE | 2020-01-04 12:14 | NUR ---
Informed Dr Pierre that pt is tolerating GT feeding at 40 mL/hr, goal rate is 50 mL/hr. Received order to DC D5 NS at 125 mL/hr. Notified Hratch.
[2020-01-04] MEDS ORDERED: MAGNESIUM OXIDE 400 MG TABLET GT ONE (12:30)
[2020-01-04 19:58] VITALS: BP 145/72
[2020-01-04] MEDS: ATORVASTATIN 10 MG TABLET GT SCH (20:34)
--- NOTE | 2020-01-04 20:34 | NUR ---
[facility] WITH NOTED SETTINGS PER MD ORDERS. TRACH CARE DONE. TRACH IS PATENT AND SECURED. SX DONE PRN. ALARMS ARE ON AND AUDIBLE. VENT IS PLUGGED INTO RED OUTLET WITH AMBU BAG AT BEDSIDE. NO RESP DISTRESS NOTED AT THIS TIME. WILL CONT TO MONITOR PT T/O SHIFT.
[2020-01-04] MEDS: TAMSULOSIN 0.4 MG CAP.SR.24H GT SCH (21:02)
--- NOTE | 2020-01-05 05:30 | NUR ---
Patient had episode of emesis greenish in color mixed with thick secretion x 1. Zofran 4mg gt given. Noted with low urine output during 12 hrs shift 0f 200 ml.Will continue to monitor and will endorse.
[2020-01-05] MEDS: ONDANSETRON 4 MG TAB.RAPDIS GT PRN (05:33)
[2020-01-05] MEDS: TWOCAL HN 1,000 ML LIQUID GT PRN (05:33)
[2020-01-05] MEDS: OMEPRAZOLE 20 MG CAPSULE.DR GT SCH ×2 (05:33→17:26)
--- NOTE | 2020-01-05 06:00 | NUR ---
Penile wound noted with order to cleanse with NS, pat dry and apply xero foam q shift x 30 days.
[2020-01-05 07:27] VITALS: BP 136/79
[2020-01-05] MEDS: HYDROGEN PEROXIDE 480 ML BOTTLE TP SCH ×2 (09:00→21:47)
[2020-01-05] MEDS: Z GUARD REMEDY 2 OZ OINT TP SCH ×2 (09:00→20:11)
--- NOTE | 2020-01-05 09:14 | NUR ---
Left a message to Dr. Pierre informing MD of the following; vomiting episode x1 last night and x1 this AM with large amount of light brownish color mixed with undigested formula, gastric residual of 60 ml. obtain after he vomited. V/S 99.9, 107, 16, 98, 158/94. Patient not on IVF, night night reported patient with low urine output (200 ml.). Awaiting for MD to call back.
[2020-01-05] MEDS: LEVETIRACETAM SOL (5 ML) 100 MG/ML UDC GT SCH ×2 (09:47→20:11)
[2020-01-05] MEDS: AMIODARONE HCL 200 MG TABLET GT SCH (09:47)
[2020-01-05] MEDS: ASCORBIC ACID 500 MG TABLET GT SCH (09:48)
[2020-01-05] MEDS: MULTIVIT W/MINERALS 1 TAB TABLET GT SCH (09:48)
[2020-01-05] MEDS: METOPROLOL TARTRATE 50 MG TABLET GT SCH ×2 (09:48→17:26)
[2020-01-05] MEDS: PROSTAT (PYXIS) 30 ML UDC GT SCH ×3 (09:48→20:11)
[2020-01-05] MEDS: ACETAMINOPHEN 650 MG/20 ML UDC- SA PATIENTS-PAIN ONLY GT SCH ×2 (09:48→20:11)
--- NOTE | 2020-01-05 09:49 | NUR ---
Dr. Peirre gave an order to keep patient NPO for now and start him on IVF, 1/2 NS at 80 ml/hr. Rosanna Ferris also gave an order to follow-up with GI. Left a message with Dr. Lemus GI. Dr. John Paul Mccrary also made aware of patient's vomiting episode including patient's low urine output from last night. He said he will review patient's records.
--- NOTE | 2020-01-05 10:17 | NUR ---
Spoke with resident's son Hratch regarding episode of vomiting and new order to put patient NPO and IVF for now. Appreciated the call.
[2020-01-05] MEDS: IV 1/2NS 1000 ML 1,000 ML IV PRN ×2 (11:00→23:02)
--- NOTE | 2020-01-05 11:20 | NUR ---
Notified ELECTRIC DISTRIBUTION ENGINEER Bina of urine culture result showing Lizzy Albicans 20,00 cfu/ml. New order to start Diflucan 100mg. QD x 5 days. MD Fernandes was also notified of patient's increased work of breathing with CPAP 5, PS 12, RR above 30 and saturating around 90% only. New order received to change ventilator setting to AC 12, TV 500, Peep 5, F102 of 30 %. ABG after 30 min. Order carried out.
[2020-01-05 12:03] LABS: ABG BASE EXCESS -8.8 mmol/L; ABG OXYGEN SATURATION 91.5 % (92.0-98.5); ABG PCO2 23.4 mmHg (35.0-45.0); ABG PH 7.411 (7.350-7.450); ABG PO2 64.4 mmHg (75.0-100.0); COHb 0.6 % (0.5-1.5); MetHb 0.5 % (0.0-1.5); O2Hb 90.5 % (94.0-97.0); SITE, ABG Right Radial; VENT MODE, BG AC 12 500 30% +5
--- NOTE | 2020-01-05 12:10 | NUR ---
ABG result relayed to Dr. Fernandes with order to increase F102 to 45%. Order carried out.
--- NOTE | 2020-01-05 14:00 | NUR ---
Received a clarification of order from EMMANUEL Jordan to give Diflucan 100mg. x 1 dose only instead of 5 days. Order carried out.
[2020-01-05] MEDS ORDERED: FLUCONAZOLE (100 MG) 100 MG TABLET GT ONE (14:01)
[2020-01-05 14:49] VITALS: BP 136/79
--- NOTE | 2020-01-05 16:00 | NUR ---
Follow-up call made & spoke with MAEGAN Olivas and reported patient's condition, new order given to do KUB and connect GT to a drainage bag and drain by gravity. Order carried out.
--- NOTE | 2020-01-05 16:30 | NUR ---
INTERDISCIPLINARY PLAN OF CARE CONFERENCE took place today. The patients Daughter, Shae Snyder [phone] participated via phone conference[address]. Fernandes and Interdisciplinary team discussed the plan of care in detail. The IDT addressed all of the familys questions. Current orders as well as treatments and medications were reviewed. Charge nurse discussed the pt. has low urine output and briquette machine operator to monitor; episodes of vomiting ; 01/04 urine culture result and tx: Diflucan (see nursing notes for details). Please see other disciplines IDT notes for further details.
--- NOTE | 2020-01-05 17:00 | NUR ---
Seen and examined by Dr. Pierre, patient no further vomiting episode. Continue on IVF 1/2 NS at 80 cc/hr. Awaiting for KUB result. NNO given. Informed Dr. Pierre that pharmacy mentioned that Lopressor being held due to low B/P, MD reviewed recent B/P and current dose of Lopressor. No changes.
--- NOTE | 2020-01-05 17:11 | NUR ---
Received a verbal report from Radiologist Dr. Mora regarding KUB result that shows small bowel obstruction. Left a message to Dr. Pierre and VM message to Dr. Clark's (online marketing coordinator for Dr. Lemus, GI) regarding abdominal KUB result. Left a message to Shae, (daughter) informing her of the result. Awaiting for orders from .
--- NOTE | 2020-01-05 18:03 | NUR ---
Received a call from Dr. Lemus, relayed abdominal KUB result (small bowel obstruction), he said that he will see the patient tomorrow and continue to drain GT to gravity. Endorsed.
[2020-01-05 19:50] VITALS: BP 143/74
[2020-01-05] MEDS: ATORVASTATIN 10 MG TABLET GT SCH (20:11)
--- NOTE | 2020-01-05 20:45 | NUR ---
[facility] WITH NOTED SETTINGS PER MD ORDERS. TRACH CARE DONE. TRACH IS PATENT AND SECURED. SX DONE PRN. ALARMS ARE ON AND AUDIBLE. VENT IS PLUGGED INTO RED OUTLET WITH AMBU BAG AT BEDSIDE. NO RESP DISTRESS NOTED AT THIS TIME. WILL CONT TO MONITOR PT T/O SHIFT.
[2020-01-05] MEDS: TAMSULOSIN 0.4 MG CAP.SR.24H GT SCH (21:07)
[2020-01-06] MEDS: OMEPRAZOLE 20 MG CAPSULE.DR GT SCH ×2 (05:07→17:11)
--- NOTE | 2020-01-06 06:41 | NUR ---
Patient had no episodes of emesis,GT connected to gravity bag ,no output. Continuos IV hydration of 1/2 NS 80 ml/hr.Noted with frothy secretions from the mouth. HOB elevated at all times.Will continue to monitor.
[2020-01-06 07:41] VITALS: BP 115/52
[2020-01-06] MEDS: LEVETIRACETAM SOL (5 ML) 100 MG/ML UDC GT SCH ×2 (08:54→20:24)
[2020-01-06] MEDS: PROSTAT (PYXIS) 30 ML UDC GT SCH ×3 (08:58→20:24)
[2020-01-06] MEDS: ASCORBIC ACID 500 MG TABLET GT SCH (08:59)
[2020-01-06] MEDS: HYDROGEN PEROXIDE 480 ML BOTTLE TP SCH ×2 (09:00→21:00)
[2020-01-06] MEDS: METOPROLOL TARTRATE 50 MG TABLET GT SCH ×2 (09:00→17:05)
[2020-01-06] MEDS: MULTIVIT W/MINERALS 1 TAB TABLET GT SCH (09:00)
[2020-01-06] MEDS: Z GUARD REMEDY 2 OZ OINT TP SCH ×2 (09:01→20:24)
[2020-01-06] MEDS: ACETAMINOPHEN 650 MG/20 ML UDC- SA PATIENTS-PAIN ONLY GT SCH ×2 (09:01→20:24)
[2020-01-06] MEDS: AMIODARONE HCL 200 MG TABLET GT SCH (09:01)
[2020-01-06] MEDS: IV 1/2NS 1000 ML 1,000 ML IV PRN (14:12)
--- NOTE | 2020-01-06 16:45 | NUR ---
Left a message to Dr. Lemus GI reminding him of the consult. At this time, no episode of vomiting this shift, GT connected to drainage bag with 60 ml. output. Resident alert and responsive to verbal stimulation. Continue on IVF 1/2 NS at 80 cc/hr.
--- NOTE | 2020-01-06 17:30 | NUR ---
Received a call back from Dr. Mariah ISSA, he said that he will see the patient tomorrow. Endorsed.
[2020-01-06] MEDS: ATORVASTATIN 10 MG TABLET GT SCH (20:24)
[2020-01-06 20:59] VITALS: BP 140/68
[2020-01-06] MEDS: TAMSULOSIN 0.4 MG CAP.SR.24H GT SCH (21:10)
[2020-01-07] MEDS: IV 1/2NS 1000 ML 1,000 ML IV PRN (02:55)
[2020-01-07] MEDS: OMEPRAZOLE 20 MG CAPSULE.DR GT SCH ×2 (05:12→17:25)
[2020-01-07 07:50] VITALS: BP 118/67
[2020-01-07] MEDS: AMIODARONE HCL 200 MG TABLET GT SCH (09:00)
[2020-01-07] MEDS: PROSTAT (PYXIS) 30 ML UDC GT SCH ×3 (09:00→21:18)
[2020-01-07] MEDS: ACETAMINOPHEN 650 MG/20 ML UDC- SA PATIENTS-PAIN ONLY GT SCH ×2 (09:00→21:18)
[2020-01-07] MEDS: Z GUARD REMEDY 2 OZ OINT TP SCH ×2 (09:00→21:18)
[2020-01-07] MEDS: METOPROLOL TARTRATE 50 MG TABLET GT SCH ×2 (09:00→16:58)
[2020-01-07] MEDS: ASCORBIC ACID 500 MG TABLET GT SCH (09:00)
[2020-01-07] MEDS: MULTIVIT W/MINERALS 1 TAB TABLET GT SCH (09:00)
[2020-01-07] MEDS: LEVETIRACETAM SOL (5 ML) 100 MG/ML UDC GT SCH ×2 (09:00→21:18)
--- NOTE | 2020-01-07 10:00 | NUR ---
Dr. Solorzano came to assess patient due to vomiting, no further vomiting at this time. He changed patients' GT at bedside, patient tolerated well. He ordered CT abdomen pelvis with contrast due to small bowel obstruction today. Noted and carried out.
[2020-01-07] MEDS: HYDROGEN PEROXIDE 480 ML BOTTLE TP SCH ×2 (10:10→21:00)
--- NOTE | 2020-01-07 11:00 | NUR ---
Called Radiology department and spoke to roscoe regarding new order of CT, per Roscoe patient needs latest results of BUN and Creatinine, needs consent from family (CT with contrast), needs IV line. Patient has picc line to right antecubital, patent and intact. Called ER admitting and spoke to kirit regarding to create new account. She said she will call back.
--- NOTE | 2020-01-07 11:15 | NUR ---
Called and spoke to patients' daughter (Shae Snyder) and obtained telephone consent, explained to patients' daughter that GI MD ordered CT abdomen pelvis with contrast now due to small bowel obstruction. Made her aware too that patients' GT got changed by Dr. Solorzano today. Patients' daughter verbalized understanding and agreed to MDs. order.
--- NOTE | 2020-01-07 12:00 | NUR ---
Marialuisa called back and gave new account number ( SF [id number]) for this specific procedure. noted. Called radiology and patient will be filler picker at 1 pm in subacute with RT and PLANT PRODUCTION WORKER, patient on vent.
--- NOTE | 2020-01-07 13:00 | NUR ---
Patient brought to radiology department for CT Abdomen Pelvis with contrast, on vent with RT and HUSBANDRY PERSON.
--- NOTE | 2020-01-07 14:00 | NUR ---
Patient brought back to subacute, CT Abdomen Pelvis with contrast done.
--- NOTE | 2020-01-07 18:30 | NUR ---
Called and left message to answering service of Dr. Solorzano regarding results of CT abdomen pelvis. Waiting for call back.
--- NOTE | 2020-01-07 19:13 | NUR ---
Dr. Solorzano called back and relayed him results of CT abdomen pelvis with contrast, he stated to let Dr. Pierre know loki to order surgical consult. Keep patient NPO except meds, continue IV fluid. Noted. Patient closely monitored. No nausea and vomiting at this time.
[2020-01-07 20:36] VITALS: BP 128/56
[2020-01-07] MEDS: ATORVASTATIN 10 MG TABLET GT SCH (21:18)
[2020-01-07] MEDS: TAMSULOSIN 0.4 MG CAP.SR.24H GT SCH (21:19)
[2020-01-08] MEDS: OMEPRAZOLE 20 MG CAPSULE.DR GT SCH ×2 (05:42→17:53)
[2020-01-08 08:03] VITALS: BP 140/63
[2020-01-08] MEDS: IV 1/2NS 1000 ML 1,000 ML IV PRN ×2 (08:30→22:00)
[2020-01-08] MEDS: PROSTAT (PYXIS) 30 ML UDC GT SCH ×3 (09:00→20:44)
[2020-01-08] MEDS: LEVETIRACETAM SOL (5 ML) 100 MG/ML UDC GT SCH ×2 (09:00→20:43)
[2020-01-08] MEDS: METOPROLOL TARTRATE 50 MG TABLET GT SCH ×2 (09:00→17:53)
[2020-01-08] MEDS: ACETAMINOPHEN 650 MG/20 ML UDC- SA PATIENTS-PAIN ONLY GT SCH ×2 (09:00→20:45)
[2020-01-08] MEDS: Z GUARD REMEDY 2 OZ OINT TP SCH ×2 (09:00→20:45)
[2020-01-08] MEDS: ASCORBIC ACID 500 MG TABLET GT SCH (09:00)
[2020-01-08] MEDS: HYDROGEN PEROXIDE 480 ML BOTTLE TP SCH ×2 (09:00→21:00)
[2020-01-08] MEDS: AMIODARONE HCL 200 MG TABLET GT SCH (09:00)
[2020-01-08] MEDS: MULTIVIT W/MINERALS 1 TAB TABLET GT SCH (09:00)
--- NOTE | 2020-01-08 10:38 | NUR ---
Informed SCREW MACHINE SETTER Amee Renae of pt's condition and surgery consult order. She said she will talk with Dr Kishore Mccrary about it. Dr Mccrary emergency medicine nurse practitioner today for surgery.
--- NOTE | 2020-01-08 12:59 | NUR ---
Seen by EMMANUEL Treadwell. Pt on full vent support at this time due to increased work of breathing on 01/05/20. EMMANUEL Treadwell ordered to do CXR.
--- NOTE | 2020-01-08 14:49 | NUR ---
Relayed CXR result to EMMANUEL Treadwell.
--- NOTE | 2020-01-08 15:01 | NUR ---
Informed Dr Pierre that pt had CT abdomen pelvis with contrast done yesterday, result relayed to Dr Solorzano and he said to have Dr Pierre order surgery consult. Informed Dr Pierre that EMMANUEL Renae will discuss it with Dr Kishore Mccrary.
--- NOTE | 2020-01-08 15:07 | NUR ---
INTERNET SECURITY SPECIALIST Amee Renae called. Dr Mccrary said to have Dr Howell continue following up on pt. Dr Howell was following up on pt in the previous weeks. Left message for Dr Howell.
--- NOTE | 2020-01-08 15:30 | NUR ---
Dr Pierre said he spoke with Dr Solorzano. Informed him that Dr Howell will follow pt. Also informed Dr Pierre that pt still NPO, on IV fluids, has 60 mL output in the drainage bag (connected to GT). Output red in color. Spoke with Dr Howell. Relayed CT abdomen pelvis and small bowel follow through results to him. Addendum: 01/08/20 at 1808 by SHADY LOCKHART RN Notified Dr Howell and Dr Pierre that pt is having bowel movements.
--- NOTE | 2020-01-08 15:50 | NUR ---
EMMANUEL Treadwell said Dr Fernandes is aware of CXR result and it is nothing new, no new order.
[2020-01-08 20:37] VITALS: BP 127/81
[2020-01-08] MEDS: ATORVASTATIN 10 MG TABLET GT SCH (20:44)
[2020-01-08] MEDS: TAMSULOSIN 0.4 MG CAP.SR.24H GT SCH (22:37)
[2020-01-09] MEDS: OMEPRAZOLE 20 MG CAPSULE.DR GT SCH ×2 (05:19→18:14)
[2020-01-09 07:02] LABS: ALBUMIN 1.8 g/dL (3.4-5.0); BILIRUBIN,TOTAL 0.2 mg/dL (0.2-1.0); CALCIUM, SERUM 7.9 mg/dL (8.5-10.1); CREATININE 0.9 mg/dL (0.6-1.3); MAGNESIUM 1.5 mg/dL (1.8-2.4); PHOSPHORUS 3.3 mg/dL (2.5-4.9)
[2020-01-09 07:07] LABS: POTASSIUM 2.7 mmol/L (3.5-5.1)
[2020-01-09 07:18] LABS: BASOPHILS % (AUTO) 0.6 % (0.0-2.0); EOSINOPHILS % (AUTO) 2.3 % (0.0-6.0); HEMATOCRIT 25 % (39-51); HEMOGLOBIN 7.9 g/dL (13.5-17.5); LYMPHOCYTES # (AUTO) 0.6 /CMM (0.8-4.8); LYMPHOCYTES % (AUTO) 14.8 % (20.0-44.0); MEAN CORPUSCULAR HGB CONC 33 g/dl (31.0-36.0); MEAN CORPUSCULAR VOLUME 85 fL (80-96); MONOCYTES # (AUTO) 0.4 /CMM (0.1-1.30); NEUTROPHILS # (AUTO) 3.1 /CMM (1.8-8.9); NEUTROPHILS % (AUTO) 73.3 % (43.0-81.0); PLATELET COUNT (AUTO) 270 /CMM (150-450); RED BLOOD CELL COUNT(AUTO) 2.89 MIL/uL (4.5-6.0); WHITE BLOOD COUNT (AUTO) 4.3 K/uL (4.3-11.0)
[2020-01-09 07:55] VITALS: BP 145/73
[2020-01-09] MEDS: HYDROGEN PEROXIDE 480 ML BOTTLE TP SCH ×2 (08:28→21:00)
[2020-01-09] MEDS: Z GUARD REMEDY 2 OZ OINT TP SCH ×2 (09:00→20:19)
[2020-01-09] MEDS: ASCORBIC ACID 500 MG TABLET GT SCH (09:00)
[2020-01-09] MEDS: LEVETIRACETAM SOL (5 ML) 100 MG/ML UDC GT SCH ×2 (09:00→20:17)
[2020-01-09] MEDS: METOPROLOL TARTRATE 50 MG TABLET GT SCH ×2 (09:00→16:35)
[2020-01-09] MEDS: AMIODARONE HCL 200 MG TABLET GT SCH (09:00)
[2020-01-09] MEDS: ACETAMINOPHEN 650 MG/20 ML UDC- SA PATIENTS-PAIN ONLY GT SCH ×2 (09:00→20:19)
[2020-01-09] MEDS: MULTIVIT W/MINERALS 1 TAB TABLET GT SCH (09:00)
[2020-01-09] MEDS: PROSTAT (PYXIS) 30 ML UDC GT SCH ×3 (09:00→20:19)
--- NOTE | 2020-01-09 09:10 | NUR ---
Seen by Dr Fernandes. Received order to give Potassium Chloride 10 mEq IV to run for 1 hour, repeat x 4 for a total of 50 mEq, repeat K after last bolus.
[2020-01-09] MEDS: Potassium Chloride 10 MEQ in IV D5W 50 ML IV SCH ×5 (10:30→17:30)
[2020-01-09] MEDS: IV 1/2NS 1000 ML 1,000 ML IV PRN (10:30)
[2020-01-09 15:00] VITALS: BP 126/62
[2020-01-09] MEDS: Magnesium 1GM/D5W 100ML PREMIX 100 ML IV SCH ×2 (15:00→16:15)
[2020-01-09] MEDS: ATORVASTATIN 10 MG TABLET GT SCH (20:18)
[2020-01-09 20:34] VITALS: BP 114/69
[2020-01-09] MEDS: TAMSULOSIN 0.4 MG CAP.SR.24H GT SCH (21:16)
[2020-01-10] MEDS: IV 1/2NS 1000 ML 1,000 ML IV PRN ×2 (03:30→16:13)
[2020-01-10] MEDS: OMEPRAZOLE 20 MG CAPSULE.DR GT SCH ×2 (05:09→18:32)
[2020-01-10 07:53] VITALS: BP 141/85
--- NOTE | 2020-01-10 08:09 | NUR ---
RT NOTE PATIENT REC'D TRACH'D ON MECHANICAL VENT WITH CHARTED SETTINGS. VENT ALARMS ARE ON, SET, AND AUDIBLE. VENT PLUGGED INTO RED OUTLET. AMBU BAG AT BEDSIDE. NO SOB NOTED AT THIS TIME. WILL MONITOR T/O SHIFT. Addendum: 01/10/20 at 0809 by SARAH BARNEY RT Amended: Links added.
[2020-01-10] MEDS: MULTIVIT W/MINERALS 1 TAB TABLET GT SCH (08:40)
[2020-01-10] MEDS: AMIODARONE HCL 200 MG TABLET GT SCH (08:40)
[2020-01-10] MEDS: METOPROLOL TARTRATE 50 MG TABLET GT SCH ×2 (08:40→17:00)
[2020-01-10] MEDS: LEVETIRACETAM SOL (5 ML) 100 MG/ML UDC GT SCH ×2 (08:40→20:56)
[2020-01-10] MEDS: PROSTAT (PYXIS) 30 ML UDC GT SCH ×3 (08:40→20:57)
[2020-01-10] MEDS: ACETAMINOPHEN 650 MG/20 ML UDC- SA PATIENTS-PAIN ONLY GT SCH ×2 (08:40→20:57)
[2020-01-10] MEDS: Z GUARD REMEDY 2 OZ OINT TP SCH ×2 (08:41→20:57)
[2020-01-10] MEDS: ASCORBIC ACID 500 MG TABLET GT SCH (08:41)
[2020-01-10] MEDS: HYDROGEN PEROXIDE 480 ML BOTTLE TP SCH ×2 (09:00→20:34)
--- NOTE | 2020-01-10 11:10 | NUR ---
Noted an order from Dr. Pierre to DC current IVF and abdominal KUB. However result of KUB shows improvement of small bowel obstruction. Clarified order with Dr. Pierre whether he would like to DC current IVF or change it to a different IVF. Awaiting for clarification.
--- NOTE | 2020-01-10 11:35 | NUR ---
Dr. Pierre asked to follow-up with surgery regarding the plan. Left a message with Dr. Howell, informing him that Dr. Mccrary's group was notified yesterday of the consult but according to EMMANUEL Gaytan since he (Dr. Howell) is following-up the patient he can continue to do so. Notified Dr. Howell of KUB result. said that he will the patient today.
--- NOTE | 2020-01-10 12:00 | NUR ---
Dr. Pierre made aware that surgeon, Dr. Howell will see patient today and he ordered to resume current IVF of 1/2 NS at 70 cc/hr. Order carried out.
--- NOTE | 2020-01-10 13:42 | NUR ---
Dr. Howell seen and examined patient. Made aware patient with one episode of vomiting this shift. MD reviewed labs, past and current imaging result i.e. KUB/SBFT, CT scan. Dr. Howell called and discussed options with resident's daughter Shae while explaining the risk vs benefits of surgery. According to MD, the family will discuss among themselves what they decided and will call this nurse. Received a call back from Shae stating that they decided to go ahead with the operation. Informed Dr. Howell of family's decision.
--- NOTE | 2020-01-10 14:00 | NUR ---
Received a call from Dr. Howell, he said that he spoke with resident's daughter and they are willing to take the risk. He asked when was the last time the patient had his BMP and PT/PTT/INR and what was the result. BMP was done yesterday, result of Mg (1.5) and potassium (2.7) are low. Patient's K+ level went up to 3.1 after he was given 50 meq KCL IV. According to Dr. Howell he would like to see K+ level above 3.5. new order given to give KCL 40 meq via GT now and then repeat at night. Informed MD that patient also received Mg 2.0 gm. yesterday, he wanted patient to received another 2 gm of Magnesium IV. Orders noted and carried out. Notified resident's daughter of new order. She verbalized understanding that surgery will be schedule based on the result of the labs tomorrow. Dr. Howell said that he will make the decision whether to do the surgery tomorrow or not. Dr. Pierre informed.
[2020-01-10] MEDS ORDERED: Magnesium 1GM/D5W 100ML PREMIX 100 ML IV SCH ×2 (14:31→20:00)
--- NOTE | 2020-01-10 14:45 | NUR ---
Spoke with [facility], she said Mg. sulfate 2 gm is covered by patient's insurance and they will be able to deliver it today. [facility] pharmacy informed.
[2020-01-10] MEDS ORDERED: POTASSIUM CHLORIDE 20 MEQ POWDER PACKET NG SCH ×2 (15:00→21:00)
[2020-01-10 19:45] VITALS: BP 131/73
[2020-01-10] MEDS ORDERED: MAGNESIUM IV ONE (20:00)
[2020-01-10] MEDS ORDERED: D5W IV ONE (20:00)
[2020-01-10] MEDS: ATORVASTATIN 10 MG TABLET GT SCH (20:56)
[2020-01-10] MEDS: TAMSULOSIN 0.4 MG CAP.SR.24H GT SCH (22:00)
[2020-01-11] MEDS: IV 1/2NS 1000 ML 1,000 ML IV PRN ×2 (05:15→18:10)
[2020-01-11] MEDS: OMEPRAZOLE 20 MG CAPSULE.DR GT SCH ×2 (06:13→18:02)
[2020-01-11 06:48] LABS: CALCIUM, SERUM 7.7 mg/dL (8.5-10.1); CREATININE 0.8 mg/dL (0.6-1.3); MAGNESIUM 2.1 mg/dL (1.8-2.4); PHOSPHORUS 2.6 mg/dL (2.5-4.9); POTASSIUM 3.2 mmol/L (3.5-5.1)
--- NOTE | 2020-01-11 07:09 | NUR ---
Patient stable during the night ,no emesis noted. On continuos IV hydration of 1/2 NS 80ml/hr.Will continue to monitor.
[2020-01-11 07:38] VITALS: BP 141/79
[2020-01-11] MEDS: HYDROGEN PEROXIDE 480 ML BOTTLE TP SCH ×2 (08:10→19:59)
[2020-01-11] MEDS: AMIODARONE HCL 200 MG TABLET GT SCH (08:45)
[2020-01-11] MEDS: LEVETIRACETAM SOL (5 ML) 100 MG/ML UDC GT SCH ×2 (08:45→20:39)
[2020-01-11] MEDS: METOPROLOL TARTRATE 50 MG TABLET GT SCH ×2 (08:46→17:00)
[2020-01-11] MEDS: ACETAMINOPHEN 650 MG/20 ML UDC- SA PATIENTS-PAIN ONLY GT SCH ×2 (08:46→20:40)
[2020-01-11] MEDS: ASCORBIC ACID 500 MG TABLET GT SCH (08:46)
[2020-01-11] MEDS: Z GUARD REMEDY 2 OZ OINT TP SCH ×2 (08:46→20:40)
[2020-01-11] MEDS: PROSTAT (PYXIS) 30 ML UDC GT SCH ×3 (08:46→20:39)
[2020-01-11] MEDS: MULTIVIT W/MINERALS 1 TAB TABLET GT SCH (08:46)
--- NOTE | 2020-01-11 09:51 | NUR ---
Left message for Dr Pierre regarding potassium 3.2 and also informed him that Dr Howell will proceed with surgery once potassium is above 3.5. Notified Dr Howell that potassium is still low at 3.2. He said to let him know once it is corrected and above 3.5.
--- NOTE | 2020-01-11 10:21 | NUR ---
Dr Pierre ordered to give Potassium Chloride 60 mEq IV for hypokalemia.
[2020-01-11] MEDS: POTASSIUM CL. PREMIX PERIPHER. 50 ML IV SCH ×6 (11:00→16:00)
[2020-01-11 19:55] VITALS: BP 161/73
[2020-01-11 19:57] VITALS: BP 131/64
[2020-01-11] MEDS: ATORVASTATIN 10 MG TABLET GT SCH (20:39)
[2020-01-11] MEDS: TAMSULOSIN 0.4 MG CAP.SR.24H GT SCH (21:18)
[2020-01-12] MEDS: OMEPRAZOLE 20 MG CAPSULE.DR GT SCH ×2 (05:10→17:55)
[2020-01-12] MEDS: IV 1/2NS 1000 ML 1,000 ML IV PRN ×2 (06:26→20:32)
--- NOTE | 2020-01-12 06:43 | NUR ---
Primary nurse reported right bump @ right inguinal area,it more prominent when patient cough. Will endorse to notify MD.No emesis during the night,still on IV hydration 1/2 NS 80 ml/hr.
[2020-01-12 07:04] LABS: CALCIUM, SERUM 7.5 mg/dL (8.5-10.1); POTASSIUM 3.3 mmol/L (3.5-5.1)
[2020-01-12 07:35] VITALS: BP 132/65
--- NOTE | 2020-01-12 08:20 | NUR ---
Left a message to Dr. Pierre regarding BMP result with K+ level of 3.3, HR ranging 46-52 this AM, and bump noted in the R inguinal area per report. Awaiting orders from
[2020-01-12] MEDS: HYDROGEN PEROXIDE 480 ML BOTTLE TP SCH ×2 (08:28→21:00)
[2020-01-12] MEDS: AMIODARONE HCL 200 MG TABLET GT SCH (08:36)
[2020-01-12] MEDS: LEVETIRACETAM SOL (5 ML) 100 MG/ML UDC GT SCH ×2 (08:36→20:16)
[2020-01-12] MEDS: PROSTAT (PYXIS) 30 ML UDC GT SCH ×3 (08:37→20:16)
[2020-01-12] MEDS: ACETAMINOPHEN 650 MG/20 ML UDC- SA PATIENTS-PAIN ONLY GT SCH (08:37)
[2020-01-12] MEDS: METOPROLOL TARTRATE 50 MG TABLET GT SCH ×2 (08:37→17:55)
[2020-01-12] MEDS: Z GUARD REMEDY 2 OZ OINT TP SCH ×2 (08:37→20:16)
[2020-01-12] MEDS: ASCORBIC ACID 500 MG TABLET GT SCH (08:37)
[2020-01-12] MEDS: MULTIVIT W/MINERALS 1 TAB TABLET GT SCH (08:37)
--- NOTE | 2020-01-12 08:54 | NUR ---
Left a message with Dr. Howell regarding BMP result with K+ level of 3.3, HR ranging 46-52 this AM asking if MD will proceed with surgery or if he has any other order. Awaiting for call back.
--- NOTE | 2020-01-12 09:25 | NUR ---
Spoke with Dr. Howell, he is aware the K+ level today is 3.3 however , he said that potassium has to be corrected. He wants to see the level at 4.0. According to MD if the K+ and Magnesium level is low, it gives a problem to the gut. Resident is passing bowel movement. Dr. Howell ordered abdominal KUB in AM and will decide tomorrow if he will do the surgery. He said to inform primary physician to order K to keep his level at 4.0. He said that K+ has to be replenished and Mg. must be kept within the range. Current Magnesium level 2.1. Left a message to Dr. Pierre regarding above conversation with Dr. Howell, including HR < 60 for the past 24 hours. Awaiting orders from .
[2020-01-12] MEDS ORDERED: POTASSIUM CHLORIDE 20 MEQ POWDER PACKET GT SCH (11:30)
--- NOTE | 2020-01-12 12:17 | NUR ---
Notified Dr. Fernandes of the low potassium level 3.3, with order to give total of KCL 30 mEq IV to be given 10 meq over 1 hours x 3. Order carried out. Resident's tracheal wound healed, treatment discontinued.
--- NOTE | 2020-01-12 12:30 | NUR ---
KCL 10 meq per GT not administered, it was wrongly entered by [facility] pharmacist. Order was 10 MEQ IV x 1 dose. Pharmacist Cesario informed.
[2020-01-12] MEDS: Potassium Chloride 10 MEQ in IV D5W 50 ML IV SCH ×3 (13:38→17:12)
--- NOTE | 2020-01-12 17:38 | NUR ---
KCL 30 meq IV, given with repeat BMP in AM. Spoke with resident's daughter Shae and updated family of patient's condition and the plan of Dr. Howell for KUB in AM and will go from there.
[2020-01-12 18:29] VITALS: BP 159/69
[2020-01-12 20:00] VITALS: BP 117/71
[2020-01-12] MEDS: ATORVASTATIN 10 MG TABLET GT SCH (20:16)
[2020-01-12] MEDS: TAMSULOSIN 0.4 MG CAP.SR.24H GT SCH (21:00)
[2020-01-13] MEDS: OMEPRAZOLE 20 MG CAPSULE.DR GT SCH ×2 (06:08→17:14)
[2020-01-13 06:37] LABS: CALCIUM, SERUM 7.4 mg/dL (8.5-10.1); CREATININE 0.9 mg/dL (0.6-1.3); POTASSIUM 3.4 mmol/L (3.5-5.1)
[2020-01-13 07:52] VITALS: BP 129/66
[2020-01-13] MEDS: HYDROGEN PEROXIDE 480 ML BOTTLE TP SCH ×2 (09:00→21:25)
[2020-01-13] MEDS: Z GUARD REMEDY 2 OZ OINT TP SCH ×2 (09:00→21:22)
[2020-01-13] MEDS: LEVETIRACETAM SOL (5 ML) 100 MG/ML UDC GT SCH ×2 (09:15→21:22)
[2020-01-13] MEDS: AMIODARONE HCL 200 MG TABLET GT SCH (09:16)
[2020-01-13] MEDS: METOPROLOL TARTRATE 50 MG TABLET GT SCH ×2 (09:17→17:13)
[2020-01-13] MEDS: PROSTAT (PYXIS) 30 ML UDC GT SCH ×3 (09:17→21:22)
[2020-01-13] MEDS: ASCORBIC ACID 500 MG TABLET GT SCH (09:17)
[2020-01-13] MEDS: MULTIVIT W/MINERALS 1 TAB TABLET GT SCH (09:17)
--- NOTE | 2020-01-13 10:00 | NUR ---
Left a message to Dr. Howell regarding KUB result "dilated loops of small bowel, concerning of bowel obstruction." and K+ of 3.4., he the requested to call him. After speaking with Dr. Howell, he said that he is not correctional medicine physician and why would he be following up on this patient when he did not operate on him, but simply seen him in the past. According to MD Howell he called to inform Dr. Kishore Mccrary about this patient. But since Dr. Mccrary is not correctional medicine physician at this time, he directed this nurse to call Dr. Evangelista instead.
--- NOTE | 2020-01-13 10:10 | NUR ---
Received an order from Kylah, pharmacist for Klorcon 20 meq via GT for hypokalemia (K+ 3.4) per pharmacy protocol.
[2020-01-13] MEDS ORDERED: POTASSIUM CHLORIDE 20 MEQ POWDER PACKET GT ONE (10:30)
--- NOTE | 2020-01-13 10:30 | NUR ---
Notified Dr. Evangelista of the consult, he requested to leave a text message with the patient's name, diagnosis and reason for consult and will call this nurse for more information.
[2020-01-13] MEDS: IV 1/2NS 1000 ML 1,000 ML IV PRN (11:02)
--- NOTE | 2020-01-13 12:01 | NUR ---
Received a call from Dr. Evangelista requesting more information about the patient, reason for the consult with diagnostic test result such as KUB, SBFT and CT scan. According to MD he will see the patient today.
--- NOTE | 2020-01-13 12:05 | NUR ---
Noted an order from Dr. Pierre to DC Klorcon 20 meq/GT and give patient KCL 10 meq. IV to run over 1 hour x 6 total of KCL 60 meq. and repeat BMP in AM. Orders carried out.
[2020-01-13] MEDS: POTASSIUM CL. PREMIX PERIPHER. 50 ML IV SCH ×6 (12:25→20:30)
--- NOTE | 2020-01-13 16:55 | NUR ---
Dr. Landry seen and assessed patient, MD reviewed all diagnostic test done in the past including KUB's, SBFT and CT scan of the abdomen. Dr. Evangelista also spoke with resident's daughter Shae giving them options for the patient, one to keep him comfortable due to patient's age and co-morbidity or to take him to surgery which could be a big deal due to complications. Dr. Evangelista told the family that whatever option they choose, it is ultimately their decision. In the meantime, he will order another small bowel follow-through and will see the patient again tomorrow. Notified ER admitting if the out-patient account used for KUB today can also be use for SBFT order. After admitting staff personnel (Edna) inquired from her sanding supervisor, she reactivated the account to be use for SBFT.
[2020-01-13] MEDS ORDERED: DIATR MEGLU/DIATRIZOATE SODIUM 120 ML BOTTLE (GASTROGRAPHIN) ONE (18:44)
[2020-01-13 19:54] VITALS: BP 152/75
[2020-01-13] MEDS: ATORVASTATIN 10 MG TABLET GT SCH (21:22)
[2020-01-13] MEDS: TAMSULOSIN 0.4 MG CAP.SR.24H GT SCH (21:22)
[2020-01-14] MEDS: OMEPRAZOLE 20 MG CAPSULE.DR GT SCH ×2 (05:09→17:03)
[2020-01-14 05:39] LABS: POTASSIUM 3.4 mmol/L (3.5-5.1)
[2020-01-14 07:40] VITALS: BP 158/96
[2020-01-14] MEDS: HYDROGEN PEROXIDE 480 ML BOTTLE TP SCH ×2 (09:00→21:22)
--- NOTE | 2020-01-14 09:34 | NUR ---
Relayed BMP result to Dr. Pierre, K+ 3.4, gave order to give KCL 60 meq IV. To follow up small bowel follow trough result. No vomiting, stable V/S. Abdomen soft, nondistended, positive bowel sound. Will continue to monitor.
[2020-01-14] MEDS: ASCORBIC ACID 500 MG TABLET GT SCH (09:54)
[2020-01-14] MEDS: MULTIVIT W/MINERALS 1 TAB TABLET GT SCH (09:54)
[2020-01-14] MEDS: PROSTAT (PYXIS) 30 ML UDC GT SCH ×3 (09:54→20:33)
[2020-01-14] MEDS: AMIODARONE HCL 200 MG TABLET GT SCH (09:54)
[2020-01-14] MEDS: Z GUARD REMEDY 2 OZ OINT TP SCH ×2 (09:54→20:33)
[2020-01-14] MEDS: LEVETIRACETAM SOL (5 ML) 100 MG/ML UDC GT SCH ×2 (09:54→20:32)
[2020-01-14] MEDS: METOPROLOL TARTRATE 50 MG TABLET GT SCH ×2 (09:54→17:00)
[2020-01-14] MEDS: Potassium Chloride 10 MEQ in IV D5W 50 ML IV SCH ×6 (10:30→15:30)
[2020-01-14] MEDS ORDERED: POTASSIUM CHLORIDE 10 MEQ/50 ML PREMIXED IVPB FOR PERIPHERAL LINE IV ONE (10:46)
[2020-01-14] MEDS: IV 1/2NS 1000 ML 1,000 ML IV PRN (14:31)
--- NOTE | 2020-01-14 15:50 | NUR ---
Dr. Evangelista called left his cellphone number [phone], he wants to be called once result of the SBFT result comes in.
--- NOTE | 2020-01-14 17:50 | NUR ---
Relayed SBFT result to Dr. Evangelista, gave order for Exploratory laparotomy possible bowel resection on 02/14/20. He said he will inform the RN color making supervisor and color making supervisor will give me the time of surgery. For medical clearance.
--- NOTE | 2020-01-14 17:53 | NUR ---
Relayed result of SBFT result to Dr. Pierre. Informed him about the surgery order of Dr. Evangelista to be done loki 02/14/20. He said to refer to Dr. Muñoz for cardiac clearance. STAT CBC,BMP and EKG, requested.
--- NOTE | 2020-01-14 17:55 | NUR ---
RN water and sewer systems supervisor Norma Pang said the surgery is scheduled on 02/14/20 at 0730.
--- NOTE | 2020-01-14 18:01 | NUR ---
Informed Dr. Fernandes regarding scheduled surgery loki 01/15/20 at 0730 for pulmo clearance. He said he's not roofing subcontractor and will be in the hospital about [address] loki. They can proceed as urgent surgery and he will see the patient post-op.
--- NOTE | 2020-01-14 18:33 | NUR ---
EKG result relayed to Dr. Pierre, no new order given.
--- NOTE | 2020-01-14 18:45 | NUR ---
Spoke with Shae Snyder ( Daughter) informed about the surgery loki 02/14/[address] Evangelista (GI) Exploratory Laparotomy possible bowel resection. She agreed and gave us consent to do the surgery. Pls update her once cleared for surgery by Dr. Muñoz.
--- NOTE | 2020-01-14 18:50 | NUR ---
Called the office number of Dr. Muñoz, spoke with Natacha informed her that Debbie Bridges has scheduled surgery loki 02/14/20 at 0730, for exploratory laparotomy with possible bowel resection and needed a cardiac clearance. She said she will inform the doctor. Pls follow up.
--- NOTE | 2020-01-14 19:39 | NUR ---
RT NOTE PATIENT REC'D TRACH'D ON MECHANICAL VENT WITH CHARTED SETTINGS. VENT ALARMS ARE ON, SET, AND AUDIBLE. VENT PLUGGED INTO RED OUTLET. AMBU BAG AT BEDSIDE. NO SOB NOTED AT THIS TIME. WILL MONITOR T/O SHIFT. Addendum: 01/14/20 at 1939 by BENIGNO RAMIREZ RT Amended: Links added.
[2020-01-14 20:04] VITALS: BP 128/71
[2020-01-14] MEDS: ATORVASTATIN 10 MG TABLET GT SCH (20:33)
[2020-01-14 20:35] LABS: BASOPHILS % (AUTO) 0.6 % (0.0-2.0); EOSINOPHILS % (AUTO) 3.2 % (0.0-6.0); HEMATOCRIT 24 % (39-51); HEMOGLOBIN 7.8 g/dL (13.5-17.5); LYMPHOCYTES # (AUTO) 0.9 /CMM (0.8-4.8); MEAN CORPUSCULAR HGB CONC 33 g/dl (31.0-36.0); MEAN CORPUSCULAR VOLUME 85 fL (80-96); MONOCYTES # (AUTO) 0.4 /CMM (0.1-1.30); MONOCYTES % (AUTO) 7.8 % (2.0-12.0); NEUTROPHILS # (AUTO) 3.6 /CMM (1.8-8.9); NEUTROPHILS % (AUTO) 71.4 % (43.0-81.0); PLATELET COUNT (AUTO) 284 /CMM (150-450); RED BLOOD CELL COUNT(AUTO) 2.83 MIL/uL (4.5-6.0)
[2020-01-14 20:45] LABS: CALCIUM, SERUM 7.4 mg/dL (8.5-10.1); CREATININE 0.9 mg/dL (0.6-1.3); POTASSIUM 3.4 mmol/L (3.5-5.1)
--- NOTE | 2020-01-14 21:00 | NUR ---
RN NOTES RELAYED LATEST CBC AND BMP RESULTS TO WITH ORDERS TO REPLACE POTASSIUM WITH KCL 40MEQ IV NOTED AND CARRIED OUT.
[2020-01-14 21:23] LABS: EOSINOPHILS % (MANUAL) 4 % (0-4); LYMPHOCYTES % (MANUAL) 20 % (16-48); MONOCYTES % (MANUAL) 7 % (0-11.0); NEUTROPHILS % (MANUAL) 68 (42-76); REACTIVE LYMPHOCYTES 1 % (0-0)
[2020-01-14] MEDS ORDERED: POTASSIUM CHLORIDE 10 MEQ/50 ML PREMIXED IVPB FOR PERIPHERAL LINE IV SCH (21:30)
[2020-01-14] MEDS: TAMSULOSIN 0.4 MG CAP.SR.24H GT SCH (21:32)
--- NOTE | 2020-01-14 21:45 | NUR ---
RN NOTES CALLED RN STEM SHAPER REGARDING KCL BAG TO INFUSE NOT AVAILABLE ON THE IV EKIT. INSTRUCTED TO GET DOSES TO ICU.
--- NOTE | 2020-01-14 21:50 | NUR ---
RN NOTES ICU CHARGE NURSE ED GAVE KCL 10MEQ 4BAGS FROM [facility].
--- NOTE | 2020-01-14 22:40 | NUR ---
RN NOTES REPORT GIVEN TO FRANCO MILLS TO TRANSFER PATIENT TO ROOM 312-2 FOR ADMISSION FOR EX-LAP POSSIBLE BOWEL RESECTION TOMORROW 01/15/2020 0730AM UNDER
--- NOTE | 2020-01-14 22:55 | NUR ---
RN NOTES PATIENT TRANSFERRED TO ROOM 312-2 ACCOMPANIED BY RT AND LICENSED NURSE. FACE SHEET FAXED AND CALLED TO ADMITTING DEPARTMENT. NOTIFIED OF TRANSFER.
--- NOTE | 2020-01-14 22:55 | NUR ---
RN NOTES INFUSING 1BAG OF KCL (STARTED 2154) OTHER 3BAGS GIVEN TO FRANCO MILLS TO INFUSED IN MS3.
--- NOTE | 2020-01-14 22:59 | NUR ---
RN NOTES DAUGHTER MIRANDA HERRMANN NOTIFIED OF TRANSFER.
[2020-01-15] MEDS ORDERED: POTASSIUM CHLORIDE 10 MEQ/50 ML PREMIXED IVPB FOR PERIPHERAL LINE IV SCH
[2020-01-15] MEDS: HYDROGEN PEROXIDE 480 ML BOTTLE TP SCH (08:24)
[2020-01-15] MEDS ORDERED: NUT.237L25 (12:08)
[2020-01-15] MEDS ORDERED: AMIN30LI2 GT (12:08)
--- NOTE | 2020-01-22 10:20 | NUR ---
7 day bed hold: This SW called the patients Son, Aba Flannery [phone] to notify family that the 7 day bed hold is up and offer them the option of paying for bed hold out of pocket. [facility] declined to pay out of pocket for bed hold. Noted.
== END 2020-01-14 23:56 | disposition short-term general hospital (02) | DRG 207 ==
LOC: SA 13:48
PROVIDERS: ADMIT Internal Medicine; ATTEND Internal Medicine
PROC: 5A1955Z Respiratory Ventilation, Greater than 96 Consecutive Hours (ICD-10-PCS; principal; 2019-10-27)
PROC: 5A1955Z Respiratory Ventilation, Greater than 96 Consecutive Hours (ICD-10-PCS; 2019-12-21)
DX: J96.21 Acute and chronic respiratory failure with hypoxia (principal); L89.153 Pressure ulcer of sacral region, stage 3; L89.323 Pressure ulcer of left buttock, stage 3; L89.313 Pressure ulcer of right buttock, stage 3; G93.41 Metabolic encephalopathy; I21.4 Non-ST elevation (NSTEMI) myocardial infarction; J18.9 Pneumonia, unspecified organism; E87.0 Hyperosmolality and hypernatremia; I13.0 Hypertensive heart and chronic kidney disease with heart failure and stage 1 through stage 4 chronic kidney disease, or unspecified chronic kidney disease; J98.11 Atelectasis; N17.9 Acute kidney failure, unspecified; N39.0 Urinary tract infection, site not specified; Z99.11 Dependence on respirator [ventilator] status; K56.609 Unspecified intestinal obstruction, unspecified as to partial versus complete obstruction; G93.49 Other encephalopathy; J96.22 Acute and chronic respiratory failure with hypercapnia; F09 Unspecified mental disorder due to known physiological condition; D64.9 Anemia, unspecified; R13.10 Dysphagia, unspecified; B35.1 Tinea unguium; B35.3 Tinea pedis; E78.5 Hyperlipidemia, unspecified; F03.90 Unspecified dementia, unspecified severity, without behavioral disturbance, psychotic disturbance, mood disturbance, and anxiety; I25.10 Atherosclerotic heart disease of native coronary artery without angina pectoris; L89.899 Pressure ulcer of other site, unspecified stage; B96.5 Pseudomonas (aeruginosa) (mallei) (pseudomallei) as the cause of diseases classified elsewhere; I48.91 Unspecified atrial fibrillation; I50.9 Heart failure, unspecified; K21.9 Gastro-esophageal reflux disease without esophagitis; K44.9 Diaphragmatic hernia without obstruction or gangrene; M20.41 Other hammer toe(s) (acquired), right foot; M20.42 Other hammer toe(s) (acquired), left foot; N18.9 Chronic kidney disease, unspecified; N20.0 Calculus of kidney; N40.0 Benign prostatic hyperplasia without lower urinary tract symptoms; Z74.01 Bed confinement status; Z85.048 Personal history of other malignant neoplasm of rectum, rectosigmoid junction, and anus; Z85.46 Personal history of malignant neoplasm of prostate; Z87.01 Personal history of pneumonia (recurrent); Z87.19 Personal history of other diseases of the digestive system; Z90.49 Acquired absence of other specified parts of digestive tract; Z93.0 Tracheostomy status; Z93.1 Gastrostomy status; G47.419 Narcolepsy without cataplexy; Z89.021 Acquired absence of right finger(s); S31.21XA Laceration without foreign body of penis, initial encounter; Y84.6 Urinary catheterization as the cause of abnormal reaction of the patient, or of later complication, without mention of misadventure at the time of the procedure; Y82.8 Other medical devices associated with adverse incidents; Y92.89 Other specified places as the place of occurrence of the external cause
CPT/HCPCS: 31720; 36415; 36600; 71045-TC; 74018; 74250-TC; 80048-TC; 80053-TC; 81000-TC; 82040-TC; 82247-TC; 82248-TC; 82272-TC; 82378; 82565-TC; 82570-TC; 82803-TC; 82962-TC; 83605-TC; 83735-TC; 84100-TC; 84132-TC; 84153-TC; 84154-TC; 84155-TC; 84300-TC; 84484-TC; 84520-TC; 85025-TC; 85610-TC; 85730-TC; 86580-TC; 86850-TC; 87040-TC; 87070-TC; 87081-TC; 87086-TC; 87186-TC; 94002-TC; 94003-TC; 94640-TC; 94760-TC; 94762-TC; 94799-TC; 97110-TC; 97112-TC; 99082-TC; A4216; A4623; A6209; A6248; A7526; J0696; J1650; J1953; J2185; J2543; J3370; J3475; J3480; J3490; J7040; J7042; J7060; Q9963

== ENCOUNTER 2019-11-01 21:42 | Inpatient (IN) | payer MEDICARE, OTHER ==
[~2019-11-01] VITALS: Ht 172.7 cm; Wt 73.0 kg
[~2019-11-01 21:42] MED LIST changes: -ASCO-352 GT; +ASCO500T9 GT; -ATOR20TA GT; +ATOR20TA PO; -METO50TA16 GT; +METO50TA16 PO
--- NOTE | 2019-11-01 21:56 | NUR ---
XRAY DONE AT BEDSIDE.
[2019-11-01 22:00] LABS: BASOPHILS # (AUTO) 0.1 /CMM (0.0-0.2); BASOPHILS % (AUTO) 0.7 % (0.0-2.0); EOSINOPHILS % (AUTO) 0.4 % (0.0-6.0); HEMATOCRIT 25 % (39-51); HEMOGLOBIN 8.3 g/dL (13.5-17.5); LYMPHOCYTES # (AUTO) 0.5 /CMM (0.8-4.8); LYMPHOCYTES % (AUTO) 6.1 % (20.0-44.0); MEAN CORPUSCULAR HGB CONC 34 g/dl (31.0-36.0); MEAN CORPUSCULAR VOLUME 84 fL (80-96); MONOCYTES # (AUTO) 0.6 /CMM (0.1-1.30); MONOCYTES % (AUTO) 7.2 % (2.0-12.0); NEUTROPHILS # (AUTO) 7.2 /CMM (1.8-8.9); NEUTROPHILS % (AUTO) 85.6 % (43.0-81.0); PLATELET COUNT (AUTO) 319 /CMM (150-450); RED BLOOD CELL COUNT(AUTO) 2.94 MIL/uL (4.5-6.0); WHITE BLOOD COUNT (AUTO) 8.4 K/uL (4.3-11.0)
--- NOTE | 2019-11-01 22:10 | NUR ---
RT NOTE PT TRANSFERRED FROM SUB ACUTE UNIT. AWAKE/NONVERBAL. PT REMAINS ON CURRENT VENTILATOR WITH CURRENT AC SETTINGS. SX DONE, TRACH SECURED AND PATENT. ALARMS ON AND AUDIBLE. VENT PLUGGED TO RED OUTLET. NO SOB NOTED AT THIS TIME. AWAITING NEW ORDERS. Addendum: 11/02/19 at 0122 by MERCEDES SALGUERO RT Amended: Links added.
[2019-11-01 22:11] LABS: CALCIUM, SERUM 7.4 mg/dL (8.5-10.1); CREATININE 1.1 mg/dL (0.6-1.3); POTASSIUM 3.7 mmol/L (3.5-5.1)
--- NOTE | 2019-11-01 22:20 | NUR ---
CALL FROM LAB, TROP [phone]
--- NOTE | 2019-11-01 22:20 | NUR ---
PT BROUGHT IN FROM SUB ACUTE UNIT. PT IS ON VENT - AC 12, VT450, FIO2 30%, PEEP+5. PT IS RESPONSIVE TO TACTILE STIMULI. AAOX0. BROUGHT IN FOR ELEVATED HR WHICH WAS REPORTED TO BE IN THE 150'S EARLIER BUT 80S UPON ASSESSMENT. PT ALSO WAS REPORTED WITH ELEVATED TRPOPONIN OF 1.614. PT IS ON ISOLATION FOR MRSA OF NARES. MICHELE PICC INTACT WITH 3 LUMEN. WAS AT [facility] FOR EVAL. BLOOD DRAWN AND GIVEN TO CASINO MANAGER
[2019-11-01 22:23] LABS: BILIRUBIN,DIRECT 0.1 mg/dL (0.0-0.2); BILIRUBIN,TOTAL 0.2 mg/dL (0.2-1.0); TOTAL PROTEIN, SERUM 5.7 g/dL (6.4-8.2)
[2019-11-01 22:27] LABS: ALBUMIN 1.4 g/dL (3.4-5.0)
[2019-11-01] MEDS ORDERED: PIPERACILLIN /TAZOBACTAM 3.375 G in IV D5W 50 ML IV ONE (22:30)
[2019-11-01] MEDS ORDERED: VANCOMYCIN 1 GM in IV D5W 250 ML IV ONE (22:30)
--- NOTE | 2019-11-01 22:35 | NUR ---
CALLED [employer]. GLASS FRAME FITTER WAS PAGED.
[2019-11-01] MEDS ORDERED: PIPERACILLIN /TAZOBACTAM 3.375 G VIAL IV ONE (22:45)
[2019-11-01] MEDS ORDERED: VANCOMYCIN 1 GM VIAL ONE (22:45)
[2019-11-01] MEDS ORDERED: IV NS 0.9% 1,000 ML BAG IV ONE (23:30)
[2019-11-01] MEDS ORDERED: HEPARIN INFUSION/D5W 500 ML IV ONE (23:47)
[2019-11-01] MEDS ORDERED: HEPARIN SODIUM, PORCINE 5000 UNITS/1 ML VIAL ONE (23:48)
[2019-11-02] MEDS ORDERED: HEPARIN SODIUM, PORCINE 5000 UNITS/1 ML VIAL IV ONE
[2019-11-02] MEDS ORDERED: ALBUTEROL FS 2.5 MG/0.5 ML VIAL.NEB NEB PRN
[2019-11-02] MEDS ORDERED: HEPARIN INFUSION/D5W 500 ML IV PRN
--- NOTE | 2019-11-02 01:05 | NUR ---
report given to gissell medina for brandan. pt to 119
--- NOTE | 2019-11-02 01:50 | NUR ---
RT NOTE PT TRANSFERRED TO [facility] VIA VENTILATOR. AMBU BAG @ BEDSIDE. VENT PLUGGED TO RED OUTLET. NO SOB NOTED. CONT. PULSE OX CONNECTED.
--- NOTE | 2019-11-02 01:54 | NUR ---
PT TRANSPORTED TO UNIT ON [facility] WITH EMT, RN AND RT AT BEDSIDE W/ ACLS PROTOCOL. NAD DURING TRANSPORT.
[2019-11-02 02:00] VITALS: BP 137/68
--- NOTE | 2019-11-02 02:36 | NUR ---
RN NOTE RECEIVED PT FROM ER. PT BROUGHT IN VIA ALESSIO ACCOMPANIED BY FRANCO GARG, 1 EMT AND RT RAY. PT ON MECHANICAL VENTILATOR AND TOLERATING WELL. TRACH MID LINE. RESPIRATIONS EVEN AND UNLABORED. WITH WEISS CATHETER , PATENT AND DRAINING CLEAR YELLOW URINE. WITH GT FLUSHING WELL. WITH PICC LINE ON MICHELE WITH HEPARIN DRIP RUNNING ORDERED. SKIN CHECK DONE. WILL MONITOR PT. Addendum: 11/02/19 at 0249 by EDWIN AZEVEDO RN TIME CORRECTED 1244
[2019-11-02] MEDS ORDERED: Z GUARD REMEDY 2 OZ OINT TP PRN (03:00)
[2019-11-02] MEDS ORDERED: ACETAMINOPHEN 325 MG TABLET PO PRN (03:00)
[2019-11-02] MEDS ORDERED: ONDANSETRON HCL/PF 4 MG/2 ML VIAL IVP PRN (03:00)
[2019-11-02] MEDS: JEVITY 1.2 CAL 1,000 ML BOTTLE GT PRN ×2 (03:58→17:21)
[2019-11-02 04:00] VITALS: BP 122/76
[2019-11-02 04:37] LABS: BASOPHILS % (AUTO) 0.8 % (0.0-2.0); EOSINOPHILS % (AUTO) 4.3 % (0.0-6.0); HEMATOCRIT 25 % (39-51); HEMOGLOBIN 8.2 g/dL (13.5-17.5); LYMPHOCYTES # (AUTO) 0.5 /CMM (0.8-4.8); LYMPHOCYTES % (AUTO) 9.4 % (20.0-44.0); MEAN CORPUSCULAR HGB CONC 34 g/dl (31.0-36.0); MEAN CORPUSCULAR VOLUME 84 fL (80-96); MONOCYTES # (AUTO) 0.5 /CMM (0.1-1.30); MONOCYTES % (AUTO) 9.4 % (2.0-12.0); NEUTROPHILS # (AUTO) 4.4 /CMM (1.8-8.9); NEUTROPHILS % (AUTO) 76.1 % (43.0-81.0); PLATELET COUNT (AUTO) 299 /CMM (150-450); RED BLOOD CELL COUNT(AUTO) 2.93 MIL/uL (4.5-6.0); WHITE BLOOD COUNT (AUTO) 5.8 K/uL (4.3-11.0)
[2019-11-02 04:58] LABS: ALANINE AMINOTRANSFERASE 29 U/L (12-78); ALKALINE PHOSPHATASE 122 U/L (46-116); ASPARTATE AMINOTRANSFERASE 24 U/L (15-37); BILIRUBIN,TOTAL 0.2 mg/dL (0.2-1.0); CALCIUM, SERUM 7.4 mg/dL (8.5-10.1); CARBON DIOXIDE 24 mmol/L (21-32); CHLORIDE 101 mmol/L (98-107); GLUCOSE 142 mg/dL (74-106); PHOSPHORUS 3.9 mg/dL (2.5-4.9); POTASSIUM 3.4 mmol/L (3.5-5.1); SODIUM SERUM 137 mmol/L (136-145); TOTAL PROTEIN, SERUM 5.7 g/dL (6.4-8.2); UREA NITROGEN, BLOOD 23 mg/dL (7-18)
[2019-11-02] MEDS: HEPARIN INFUSION/D5W 500 ML IV PRN ×3 (05:04→21:53)
[2019-11-02 05:09] LABS: CHOLESTEROL 111 mg/dL (<200); HDL CHOLESTEROL 27 mg/dL (40-60); LDL 71 mg/dL (0-99); TRIGLYCERIDES 134 mg/dL (30-150)
[2019-11-02 05:21] LABS: MAGNESIUM 1.2 mg/dL (1.8-2.4)
[2019-11-02 05:23] LABS: ALBUMIN 1.4 g/dL (3.4-5.0)
--- NOTE | 2019-11-02 05:29 | NUR ---
RN NOTE RECEIVED ALERT FOR CRITICAL LAB VALUES. ALBUMIN 1.[address] LUCÍA QUINONES.
--- NOTE | 2019-11-02 05:31 | NUR ---
RN NOTE DR. LUCÍA QUINONES CALLED BACK WITH NO NEW ORDERS.
--- NOTE | 2019-11-02 07:20 | NUR ---
RN OPENING NOTES PT IS SLEEPING IN BED IN SEMI RUTHERFORD'S POSITION, OBTUNDED. ON MECHANICAL VENTILATOR AND TOLERATING SETTINGS WELL. NO INDICATIONS OF ACUTE RESPIRATORY DISTRESS. NO INDICATIONS OF PAIN OR DISCOMFORT, WEISS CATHETER IN PLACE AND DRAINING CLEAR YELLOW URINE. ON TUBE FEEDING AND TOLERATING WELL. LESS THAN 10ML OF GASTRIC RESIDUAL NOTED. CURRENTLY ON HEPARIN DRIP ORDERED. NO SIGNS OF BLEEDING AT THIS TIME.BED IS LOCKED AND IN LOWEST POSITION WITH X3 SIDE RAILS UP. WILL CONTINUE TO MONITOR.
--- NOTE | 2019-11-02 07:33 | NUR ---
RN CLOSING NOTE PT IN SLEEPING IN BED IN SEMI RUTHERFORD'S POSITION BUT EASILY AROUSABLE. OBTUNDED. ON MECHANICAL VENTILATOR AND TOLERATING SETTINGS WELL. NO INDICATIONS OF ACUTE RESPIRATORY DISTRESS. NO INDICATIONS OF PAIN OR DISCOMFORT, WEISS CATHETER IN PLACE AND DRAINING CLEAR YELLOW URINE. ON TUBE FEEDING AND TOLERATING WELL. LESS THAN 10ML OF GASTRIC RESIDUAL NOTED. PLACEMENT VERIFIED BU ASPIRATION OF GASTRIC CONTENTS AND AUSCULTATION. CURRENTLY ON HEPARIN DRIP ORDERED. NO SIGNS OF BLEEDING AT THIS TIME. ALL NEEDS MET AND ATTENDED TO. CALL LIGHT WITHIN REACH, SAFETY MEASURES IN PLACE. BED IN LOW POSITION. ENDORSED TO MORNING RN FOR CONTINUATION OF CARE.
[2019-11-02 08:00] VITALS: BP 116/60
[2019-11-02] MEDS ORDERED: AMIODARONE HCL 200 MG TABLET PO SCH (09:00)
[2019-11-02] MEDS ORDERED: METOPROLOL TARTRATE 50 MG TABLET PO SCH (09:00)
[2019-11-02] MEDS ORDERED: AMLODIPINE BESYLATE 5 MG TABLET PO SCH (09:00)
[2019-11-02] MEDS ORDERED: LOSARTAN POTASSIUM 50 MG TABLET PO SCH (09:00)
[2019-11-02] MEDS: ASPIRIN EC 81 MG TABLET.DR PO SCH (09:37)
[2019-11-02] MEDS: BISACODYL (5 MG) 5 MG TABLET.DR GT SCH (09:37)
[2019-11-02] MEDS: POTASSIUM CHLORIDE 20 MEQ POWDER PACKET GT SCH ×3 (09:37→11:10)
[2019-11-02] MEDS: FUROSEMIDE 40 MG/4 ML VIAL IV SCH ×3 (09:37→17:19)
[2019-11-02] MEDS: ASCORBIC ACID 500 MG TABLET GT SCH (09:37)
[2019-11-02] MEDS: LEVETIRACETAM SOL (5 ML) 100 MG/ML UDC GT SCH ×2 (09:37→17:18)
[2019-11-02] MEDS: Magnesium 1GM/D5W 100ML PREMIX 100 ML IV SCH ×4 (11:09→14:57)
[2019-11-02 12:00] VITALS: BP 99/61
--- NOTE | 2019-11-02 12:13 | NUR ---
Assumed care from bedside report with FRANCO Sims. Kilo Moody RN
[2019-11-02 16:00] VITALS: BP 108/60
--- NOTE | 2019-11-02 16:43 | NUR ---
Endorsement to Levi GAMEZ for patient care. Kilo Moody RN
[2019-11-02] MEDS: METOPROLOL TARTRATE 50 MG TABLET GT SCH (17:00)
--- NOTE | 2019-11-02 19:17 | NUR ---
RN CLOSING NOTES PT IS SLEEPING IN BED IN SEMI RUTHERFORD'S POSITION, OBTUNDED. ON MECHANICAL VENTILATOR AND TOLERATING SETTINGS WELL. NO INDICATIONS OF ACUTE RESPIRATORY DISTRESS. NO INDICATIONS OF PAIN OR DISCOMFORT, WEISS CATHETER IN PLACE AND DRAINING CLEAR YELLOW URINE. ON TUBE FEEDING AND TOLERATING WELL. LESS THAN 10ML OF GASTRIC RESIDUAL NOTED. CURRENTLY ON HEPARIN DRIP ORDERED. NO SIGNS OF BLEEDING AT THIS TIME.BED IS LOCKED AND IN LOWEST POSITION WITH X3 SIDE RAILS UP. WILL ENDORSE LUIS FERNANDO TO MANUFACTURING DESIGN ENGINEER RN.
[2019-11-02] MEDS ORDERED: FEE PK DOSING 1 MIN EA MC ONE (19:20)
[2019-11-02 20:00] VITALS: BP 104/59
[2019-11-02] MEDS ORDERED: PIPERACILLIN /TAZOBACTAM 3.375 G in IV D5W 50 ML IV ONE (21:00)
[2019-11-02] MEDS: NEOMY SULF/BACITRAC ZN/POLY 15 GM TUBE TP SCH (21:32)
[2019-11-02] MEDS: TAMSULOSIN 0.4 MG CAP.SR.24H GT SCH (21:47)
[2019-11-02] MEDS: VANCOMYCIN 1 GM in IV D5W 250 ML IV SCH (21:48)
[2019-11-02] MEDS: ATORVASTATIN 40 MG TABLET GT SCH (21:48)
[2019-11-02] MEDS ORDERED: ATORVASTATIN 40 MG TABLET PO SCH (22:00)
--- NOTE | 2019-11-02 23:43 | NUR ---
RT NOTE PT RECEIVED TRACHED ON MECHANICAL VENTILATION. AWAKE/NONVERBAL. AMBU BAG/BACK UP TRACH @ BEDSIDE. SX DONE, TRACH SECURED AND PATENT. ALARMS ON AND AUDIBLE. NO SOB NOTED. CONT. PULSE OX CONNECTED. NO SOB NOTED AT THIS TIME. WILL MONITOR T/O SHIFT. Addendum: 11/02/19 at 2343 by MERCEDES SALGUERO RT Amended: Links added.
[2019-11-03] VITALS: BP 116/64
[2019-11-03] MEDS: PIPERACILLIN /TAZOBACTAM 3.375 G in IV D5W 100 ML IV SCH ×3 (03:18→19:07)
[2019-11-03 04:00] VITALS: BP 131/58
[2019-11-03 06:20] LABS: BASOPHILS % (AUTO) 0.7 % (0.0-2.0); EOSINOPHILS % (AUTO) 4.6 % (0.0-6.0); HEMATOCRIT 26 % (39-51); HEMOGLOBIN 8.9 g/dL (13.5-17.5); LYMPHOCYTES # (AUTO) 0.6 /CMM (0.8-4.8); MEAN CORPUSCULAR HGB CONC 35 g/dl (31.0-36.0); MEAN CORPUSCULAR VOLUME 84 fL (80-96); MONOCYTES # (AUTO) 0.5 /CMM (0.1-1.30); MONOCYTES % (AUTO) 7.5 % (2.0-12.0); NEUTROPHILS # (AUTO) 5.1 /CMM (1.8-8.9); NEUTROPHILS % (AUTO) 78.2 % (43.0-81.0); PLATELET COUNT (AUTO) 371 /CMM (150-450); RED BLOOD CELL COUNT(AUTO) 3.05 MIL/uL (4.5-6.0); WHITE BLOOD COUNT (AUTO) 6.5 K/uL (4.3-11.0)
[2019-11-03 06:43] LABS: BILIRUBIN,TOTAL 0.2 mg/dL (0.2-1.0); CALCIUM, SERUM 7.5 mg/dL (8.5-10.1); CREATININE 1.1 mg/dL (0.6-1.3); MAGNESIUM 1.7 mg/dL (1.8-2.4); PHOSPHORUS 2.9 mg/dL (2.5-4.9); POTASSIUM 3.8 mmol/L (3.5-5.1)
--- NOTE | 2019-11-03 07:17 | NUR ---
STICKER ON CLOSING NOTE PATIENT IN BED WITH NO SIGN OF ANY DISTRESS. TOLERATING VENT. FEEDING OF AT THE MOMENT ENDORSED TO MORNING SHIFT NURSE TO TURN ON AT 0800. IV ACCESS ON THE R AC PICC INTACT. ALL SAFETY PRECAUTIONS HAVE BEEN APPLIED. ENDORSED PATIENT TO MORNING SHIFT NURSE FOR LUIS FERNANDO.
--- NOTE | 2019-11-03 07:20 | NUR ---
RN OPENING NOTES PT IS SLEEPING IN BED IN SEMI RUTHERFORD'S POSITION. ON MECHANICAL VENTILATOR AND TOLERATING SETTINGS WELL. NO INDICATIONS OF ACUTE RESPIRATORY DISTRESS. NO INDICATIONS OF PAIN OR DISCOMFORT, WEISS CATHETER IN PLACE AND DRAINING CLEAR YELLOW URINE. ON TUBE FEEDING AT 70 ML/HR AND TOLERATING WELL. LESS THAN 5ML OF GASTRIC RESIDUAL NOTED. CURRENTLY ON HEPARIN DRIP ORDERED. NO SIGNS OF BLEEDING AT THIS TIME.BED IS LOCKED AND IN LOWEST POSITION WITH X3 SIDE RAILS U Addendum: 11/03/19 at 1203 by JOSÉ MIGUEL OLIVEROS RN WILL CONTINUE TO MONITOR.
[2019-11-03 08:00] VITALS: BP 107/55
--- NOTE | 2019-11-03 08:10 | NUR ---
PER HEPARIN PROTOCOL DOSAGE INCREASED DUE TO INCREASE OF PTT. PTT ORDERED 6 HOURS FROM NOW PER PROTOCOL.
[2019-11-03 08:39] LABS: BAND % (MANUAL) 2 % (0.0-5.0); EOSINOPHILS % (MANUAL) 2 % (0-4); LYMPHOCYTES % (MANUAL) 6 % (16-48); MONOCYTES % (MANUAL) 5 % (0-11.0); MYELOCYTES % 2 % (0-0); NEUTROPHILS % (MANUAL) 83 (42-76)
[2019-11-03 08:53] LABS: ALBUMIN 1.4 g/dL (3.4-5.0)
--- NOTE | 2019-11-03 08:54 | NUR ---
REPORTED CRITICAL LAB VALUE TO DR. NARAYAN. NO NEW ORDERS GIVEN. PER MD ALREADY AWARE OF LOW ALBUMIN.
[2019-11-03] MEDS: AMLODIPINE BESYLATE 5 MG TABLET GT SCH (09:00)
[2019-11-03] MEDS: LOSARTAN POTASSIUM 50 MG TABLET GT SCH (09:00)
[2019-11-03] MEDS: METOPROLOL TARTRATE 50 MG TABLET GT SCH ×2 (09:00→16:58)
--- NOTE | 2019-11-03 09:25 | NUR ---
HEPARIN DC BY DR. OJEDA. HEPARIN STOPPED AT THIS TIME.
[2019-11-03] MEDS ORDERED: ENOXAPARIN SODIUM 40 MG/0.4 ML DISP.SYRIN SQ SCH (09:30)
[2019-11-03] MEDS: BISACODYL (5 MG) 5 MG TABLET.DR GT SCH (09:55)
[2019-11-03] MEDS: LEVETIRACETAM SOL (5 ML) 100 MG/ML UDC GT SCH ×2 (09:55→17:25)
[2019-11-03] MEDS: AMIODARONE HCL 200 MG TABLET GT SCH (09:56)
[2019-11-03] MEDS: Magnesium 1GM/D5W 100ML PREMIX 100 ML IV SCH ×2 (09:56→11:23)
[2019-11-03] MEDS: ASPIRIN EC 81 MG TABLET.DR PO SCH (09:56)
[2019-11-03] MEDS: ASCORBIC ACID 500 MG TABLET GT SCH (09:57)
[2019-11-03] MEDS: NEOMY SULF/BACITRAC ZN/POLY 15 GM TUBE TP SCH (09:57)
--- NOTE | 2019-11-03 11:11 | NUR ---
WOUND CARE CONSULT WOUND CARE RECEIVED CONSULT FOR SACRAL WOUND. WOUND CARE WILL DEFER CONSULT AND ALL TREATMENT PLANS TO PLASTIC SURGICAL TEAM WHO ARE CURRENTLY FOLLOWING THIS PATIENT. PATIENT ALSO HAS WOUND UNDER THE FLANGE OF THE TRACH, WOUND CARE WILL DEFER THIS TO DR BRADEN WHO WAS NOTIFIED TO EVALUATE THIS PATIENT. WOUND CARE STILL RECOMMENDING DR BRADEN EVALUATION, PRIMARY MD FOR TODAY ALSO AWARE OF THE RECOMMENDATION. PATIENT WITH FRANCO AT 11, ALL PRESSURE ULCER PREVENTION MEASURES ARE NOTED TO BE IN PLACE. WILL SEE PRN.
[2019-11-03] MEDS: JEVITY 1.2 CAL 1,000 ML BOTTLE GT PRN (11:23)
[2019-11-03 12:00] VITALS: BP 106/79
[2019-11-03] MEDS: ENOXAPARIN SODIUM 40 MG/0.4 ML DISP.SYRIN SQ SCH (13:44)
[2019-11-03 16:00] VITALS: BP 96/45
--- NOTE | 2019-11-03 19:35 | NUR ---
ELECTRON MICROPROBE OPERATOR OPENING NOTE RECEIVED PATIENT IN BED ON VENT WITH NO SIGN OF ANY DISTRESS. PATIENT ON THE MONITOR SHOWING SINUS RHYTHM. PATIENT HAS PATENT RAC PICCLINE NO SIGN OF INFILTRATE. ON GTUBE FEEDING WILL ASSESS FOR RESIDUAL. WEISS INTACT NO LEAKAGE. WILL ASSESS
[2019-11-03 20:00] VITALS: BP 101/49
--- NOTE | 2019-11-03 20:02 | NUR ---
RN CLOSING NOTES PT IS SLEEPING IN BED IN SEMI RUTHERFORD'S POSITION. ON MECHANICAL VENTILATOR AND TOLERATING SETTINGS WELL. NO INDICATIONS OF ACUTE RESPIRATORY DISTRESS. NO INDICATIONS OF PAIN OR DISCOMFORT, WEISS CATHETER IN PLACE AND DRAINING CLEAR YELLOW URINE. ON TUBE FEEDING AT 70 ML/HR AND TOLERATING WELL. LESS THAN 5ML OF GASTRIC RESIDUAL NOTED. PT IS ON LOVENOX NOW. NO SIGNS OF BLEEDING AT THIS TIME.BED IS LOCKED AND IN LOWEST POSITION WITH X3 SIDE RAILS UP. REPORT GIVEN TO REPAIRER PUMP RN FOR LUIS FERNANDO.
[2019-11-03] MEDS: VANCOMYCIN 1 GM in IV D5W 250 ML IV SCH (21:25)
[2019-11-03] MEDS: ATORVASTATIN 40 MG TABLET GT SCH (21:25)
[2019-11-03] MEDS: TAMSULOSIN 0.4 MG CAP.SR.24H GT SCH (21:25)
[2019-11-04] VITALS: BP 131/59
[2019-11-04] MEDS: JEVITY 1.2 CAL 1,000 ML BOTTLE GT PRN (02:14)
[2019-11-04] MEDS: PIPERACILLIN /TAZOBACTAM 3.375 G in IV D5W 100 ML IV SCH ×2 (02:16→11:11)
[2019-11-04 04:00] VITALS: BP 116/60
[2019-11-04 06:01] LABS: CREATININE 1.1 mg/dL (0.6-1.3); MAGNESIUM 1.9 mg/dL (1.8-2.4); PHOSPHORUS 3.4 mg/dL (2.5-4.9); POTASSIUM 4.2 mmol/L (3.5-5.1)
[2019-11-04 06:33] LABS: BASOPHILS % (AUTO) 0.6 % (0.0-2.0); EOSINOPHILS % (AUTO) 3.5 % (0.0-6.0); HEMATOCRIT 25 % (39-51); HEMOGLOBIN 8.7 g/dL (13.5-17.5); LYMPHOCYTES # (AUTO) 0.7 /CMM (0.8-4.8); LYMPHOCYTES % (AUTO) 9.2 % (20.0-44.0); MEAN CORPUSCULAR HGB CONC 34 g/dl (31.0-36.0); MEAN CORPUSCULAR VOLUME 88 fL (80-96); MONOCYTES # (AUTO) 0.6 /CMM (0.1-1.30); MONOCYTES % (AUTO) 8.1 % (2.0-12.0); NEUTROPHILS # (AUTO) 6.2 /CMM (1.8-8.9); NEUTROPHILS % (AUTO) 78.6 % (43.0-81.0); PLATELET COUNT (AUTO) 399 /CMM (150-450); RED BLOOD CELL COUNT(AUTO) 2.88 MIL/uL (4.5-6.0); WHITE BLOOD COUNT (AUTO) 7.8 K/uL (4.3-11.0)
--- NOTE | 2019-11-04 07:05 | NUR ---
RN OPENING NOTE: RECEIVED PATIENT IN BED AND ASLEEP. ON MECHANICAL VENTILATION WITH PRESCRIBED SETTINGS AND TOLERATING WELL. NO SOB, NO DISTRESS NOTED. BREATHING EQUAL AND UNLABORED. GTUBE IN PLACE. IV SITE PATENT, CLEAN AND DRY. ON CARDIAC MONITORING SHOWING SINUS RHYTHM WITH SINUS TACHYCARDIA NOTED HX. NO PAIN NOTED. ON CONTACT ISOLATION, STAFF AWARE AND COMPLIANCE OBSERVED. CALL LIGHT IN REACH. BED LOCKED, LOW AND AT SEMI-RUTHERFORD'S POSITION. SIDE RAILS UP X3. NEEDS ANTICIPATED. SAFETY ENSURED AND OBSERVED. WILL CONTINUE TO MONITOR. Addendum: 11/05/19 at 0046 by SHAYAN BROWN RN PATIENT WITH WEISS CATHETER DRAINING YELLOW URINE.
--- NOTE | 2019-11-04 07:32 | NUR ---
CITY CARRIER ASSISTANT CLOSING NOTE PATIENT IN BED WITH NO SIGNS OF ANY DISTRESS. CONT TO TOLERATE VENT ON ORIGINAL SETTINGS. GTUBE FEEDING CONTINUES AT 40ML/HR OF JEVITY WITH NO RESIDUAL. MICHELE PICC LINE IS PATENT WITH NO SIGNS OF ANY INFILTRATION. ALL SAFETY PRECAUTIONS APPLIED. ENDORSED PATIENT TO MORNING SHIFT NURSE FOR LUIS FERNANDO.
[2019-11-04 08:00] VITALS: BP 113/56
[2019-11-04] MEDS ORDERED: PROSOURCE / PROSTAT (PYXIS) 30 ML UDC GT SCH (09:00)
[2019-11-04] MEDS: BISACODYL (5 MG) 5 MG TABLET.DR GT SCH (09:40)
[2019-11-04] MEDS: AMIODARONE HCL 200 MG TABLET GT SCH (09:40)
[2019-11-04] MEDS: METOPROLOL TARTRATE 50 MG TABLET GT SCH (09:41)
[2019-11-04] MEDS: AMLODIPINE BESYLATE 5 MG TABLET GT SCH (09:41)
[2019-11-04] MEDS: LEVETIRACETAM SOL (5 ML) 100 MG/ML UDC GT SCH (09:41)
[2019-11-04] MEDS: ASPIRIN EC 81 MG TABLET.DR PO SCH (09:41)
[2019-11-04] MEDS: ASCORBIC ACID 500 MG TABLET GT SCH (09:41)
[2019-11-04] MEDS: LOSARTAN POTASSIUM 50 MG TABLET GT SCH (09:41)
[2019-11-04] MEDS ORDERED: PIPE3.379 IV (09:43)
[2019-11-04] MEDS: ENOXAPARIN SODIUM 40 MG/0.4 ML DISP.SYRIN SQ SCH (09:43)
[2019-11-04] MEDS: NEOMY SULF/BACITRAC ZN/POLY 15 GM TUBE TP SCH (09:56)
[2019-11-04 12:00] VITALS: BP 112/54
--- NOTE | 2019-11-04 15:59 | NUR ---
RT END OF THE SHIFT NOTE. PT. 84 Y OLD MALE REC/ @ 0700 AM PT. TRACH'D TRESSA # 8, ON VENT WITH NOTED ( SIMV, RR4, VT450, CXZ912%, PEEP+5, PS 10 ) SETTINGS, WITH NO VENT CHANGES T/O DAY. ALARMS ARE SET AND FUNCTIONAL, EQUAL CHEST RISE NOTED. B/S BILATERALLY DIM, SUX'S FOR SMALL AMT OF YOO YELLOWISH THICK SECRETIONS, VENT PLUGGED INTO RED OUT LET, HME CHANGED, DIGITAL ADVISOR DONE MULTIPLE TIMES. PT. CHAVA. WELL AND NO DISTRESS NOTED. TRACH CARE DONE. AMBU BAG AT THE PT. REMAIN STABLE. T/O DAY. @1558 PT. TRANSFERRED TO SUB-ACUTE. REPORT WILL PASS TO SUB-RT ALSO PM SHIFT. Addendum: 11/04/19 at 1815 by BRIAN LUCAS RT Amended: Links added.
--- NOTE | 2019-11-04 16:00 | NUR ---
PAINT ROLLER COVER MACHINE SETTER NOTE: PATIENT BROUGHT TO [facility] SUB-ACUTE UNIT WITH 1 RT AND FELLOW NURSE. DISCHARGE ORDERED BY DR. NARAYAN PATIENT IS STABLE TO CONTINUE CARE IN THE FACILITY. DISCHARGE PAPERWORKS WERE DONE AND ENDORSEMENT WAS GIVEN TO FRANCO LUO. PATIENT NO S/SX OF DISTRESS WERE NOTED WHILE ON TRANSFER. PATIENT WAS STABLE UPON ARRIVING IN THEIR UNIT.
[2019-11-04] MEDS ORDERED: ZINC1CAP2 GT (18:57)
[2019-11-04] MEDS ORDERED: ENOX40DI SQ (18:57)
[2019-11-04] MEDS ORDERED: LACT-209 GT (18:57)
[2019-11-04] MEDS ORDERED: MUPI22OI7 (18:57)
[2019-11-04] MEDS ORDERED: ONDA4TAB5 GT (18:57)
[2019-11-04] MEDS ORDERED: TRAM50TA2 GT (18:57)
== END 2019-11-04 15:55 | disposition short-term general hospital (02) | DRG 280 ==
LOC: ER 21:44 → TELE1 11-02 01:13
PROVIDERS: ADMIT Internal Medicine; ATTEND Internal Medicine
PROC: 5A1945Z Respiratory Ventilation, 24-96 Consecutive Hours (ICD-10-PCS; principal; 2019-11-02)
DX: I21.4 Non-ST elevation (NSTEMI) myocardial infarction (principal); J18.9 Pneumonia, unspecified organism; N17.0 Acute kidney failure with tubular necrosis; G93.41 Metabolic encephalopathy; J96.21 Acute and chronic respiratory failure with hypoxia; J96.22 Acute and chronic respiratory failure with hypercapnia; Z99.11 Dependence on respirator [ventilator] status; E87.1 Hypo-osmolality and hyponatremia; I12.9 Hypertensive chronic kidney disease with stage 1 through stage 4 chronic kidney disease, or unspecified chronic kidney disease; N18.9 Chronic kidney disease, unspecified; I25.10 Atherosclerotic heart disease of native coronary artery without angina pectoris; Z93.1 Gastrostomy status; Z93.0 Tracheostomy status; F03.90 Unspecified dementia, unspecified severity, without behavioral disturbance, psychotic disturbance, mood disturbance, and anxiety; G40.909 Epilepsy, unspecified, not intractable, without status epilepticus; Z85.46 Personal history of malignant neoplasm of prostate; K44.9 Diaphragmatic hernia without obstruction or gangrene; E78.5 Hyperlipidemia, unspecified; D64.9 Anemia, unspecified; K21.9 Gastro-esophageal reflux disease without esophagitis; N40.0 Benign prostatic hyperplasia without lower urinary tract symptoms; Z22.322 Carrier or suspected carrier of Methicillin resistant Staphylococcus aureus; L89.96 Pressure-induced deep tissue damage of unspecified site; G47.419 Narcolepsy without cataplexy; R13.10 Dysphagia, unspecified
CPT/HCPCS: 31720; 36415; 71045-TC; 80048-TC; 80053-TC; 80061-TC; 80076-TC; 80202-TC; 82962-TC; 83605-TC; 83735-TC; 83880; 84100-TC; 84443-TC; 84484-TC; 85025-TC; 85730-TC; 87040-TC; 87081-TC; 94003-TC; 94760-TC; 94761-TC; 94762-TC; 99082-TC; A4217; G0378; J1644; J1650; J1940; J1953; J2543; J3370; J3475; J7030; J7050; J7060

== ENCOUNTER 2020-01-07 11:41 | Outpatient (CLI) | payer MEDICARE, OTHER ==
[~2020-01-07 11:41] MED LIST changes: -AMIN30LI2 GT; -ARMO150T2 PO; -CALC-770 PO; -CRAN425C6 PO; +ENOX40DI SQ; -L. A1CAP11 PO; +LACT-209 GT; +MUPI22OI7; +ONDA4TAB5 GT; +PIPE3.379 IV; +TRAM50TA2 GT; +ZINC1CAP2 GT
[2020-01-07] MEDS ORDERED: IOHEXOL-300 100 ML VIAL IV ONE (13:12)
[2020-01-07] MEDS ORDERED: CT SWABBABLE VALVE TRANS SET 1 EA INFUS.SET MC ONE (13:12)
[2020-01-07] MEDS ORDERED: IV NS 0.9% 250 ML IV ONE (13:13)
== END 2020-01-07 23:59 | disposition home or self-care (01) ==
LOC: RAD 11:41
PROVIDERS: ATTEND Internal Medicine Gastroenterology
DX: K56.609 Unspecified intestinal obstruction, unspecified as to partial versus complete obstruction (principal); N20.0 Calculus of kidney; K44.9 Diaphragmatic hernia without obstruction or gangrene; R94.2 Abnormal results of pulmonary function studies; K40.90 Unilateral inguinal hernia, without obstruction or gangrene, not specified as recurrent; Z90.49 Acquired absence of other specified parts of digestive tract
CPT/HCPCS: 74177; J7050; Q9967

== ENCOUNTER 2020-01-13 08:00 | Outpatient (CLI) | payer MEDICARE, OTHER ==
[~2020-01-13 08:00] MED LIST changes: +ATOR20TA GT; -ATOR20TA PO; +METO50TA16 GT; -METO50TA16 PO
== END 2020-01-13 22:35 | disposition other institution (70) ==
LOC: RAD 08:00
PROVIDERS: ATTEND Internal Medicine
DX: K56.609 Unspecified intestinal obstruction, unspecified as to partial versus complete obstruction (principal)
CPT/HCPCS: 74018; 74250-TC

== ENCOUNTER 2020-01-14 22:57 | Inpatient (IN) | payer MEDICARE, OTHER ==
[~2020-01-14] VITALS: Ht 170.2 cm; Wt 72.6 kg
--- NOTE | 2020-01-14 22:50 | NUR ---
RN OPENING NOTES RECEIVED PATIENT FROM [facility]. A/OX1. NONVERBAL. NO SIGNS OF DISTRESS OR DISCOMFORT. BREATHING EVEN AND UNLABORED. ON MECH VENT WITH SETTINGS ORDERED. HAS MICHELE PICC LINE, INTACT WITH KCL INFUSING. HAS F/C INTACT DRAINING CLEAR YELLOW FLUID. GTUBE INTACT ATTACHED TO CATH DRAINING TO GRAVITY WITH SEROUS FLUID NOTED. ATTACHED TELE MONITOR WITH SR 69 NOTED. ORIENTED PATIENT TO UNIT AND ROOM. BED IN LOW LOCKED POSITION WITH SIDE RAILS X2. CALL LIGHT WITHIN REACH. WILL CONTINUE TO MONITOR.
[~2020-01-14 22:57] MED LIST changes: +AMIN30LI2 GT; +ARMO150T2 PO; +ASCO-352 GT; -ASCO500T9 GT; +CALC-770 PO; +CRAN425C6 PO; +L. A1CAP11 PO
[2020-01-14] MEDS ORDERED: IV NS 0.9% 1,000 ML IV PRN (22:59)
[2020-01-14] MEDS ORDERED: ONDANSETRON HCL/PF 4 MG/2 ML VIAL IVP PRN (23:00)
[2020-01-14] MEDS ORDERED: ACETAMINOPHEN 325 MG TABLET PO PRN (23:00)
[2020-01-14] MEDS ORDERED: Z GUARD REMEDY 2 OZ OINT TP PRN (23:00)
[2020-01-15] VITALS (11 sets, daily range): BP systolic 127–159; BP diastolic 57–87
[2020-01-15] MEDS ORDERED: POTASSIUM CHLORIDE 10 MEQ/50 ML PREMIXED IVPB FOR PERIPHERAL LINE IV ONE ×2 (00:30)
[2020-01-15] MEDS: POTASSIUM CL. PREMIX PERIPHER. 50 ML IV SCH ×3 (00:38→03:09)
[2020-01-15] MEDS ORDERED: ACETAMINOPHEN 650 MG/SUPP.RECT RC PRN (01:30)
[2020-01-15 06:47] LABS: BASOPHILS % (AUTO) 0.6 % (0.0-2.0); EOSINOPHILS % (AUTO) 3.3 % (0.0-6.0); HEMATOCRIT 24 % (39-51); HEMOGLOBIN 7.9 g/dL (13.5-17.5); LYMPHOCYTES # (AUTO) 0.6 /CMM (0.8-4.8); MEAN CORPUSCULAR HGB CONC 34 g/dl (31.0-36.0); MEAN CORPUSCULAR VOLUME 85 fL (80-96); MONOCYTES # (AUTO) 0.3 /CMM (0.1-1.30); MONOCYTES % (AUTO) 6.2 % (2.0-12.0); NEUTROPHILS # (AUTO) 4.1 /CMM (1.8-8.9); NEUTROPHILS % (AUTO) 77.9 % (43.0-81.0); PLATELET COUNT (AUTO) 276 /CMM (150-450); RED BLOOD CELL COUNT(AUTO) 2.79 MIL/uL (4.5-6.0); WHITE BLOOD COUNT (AUTO) 5.2 K/uL (4.3-11.0)
--- NOTE | 2020-01-15 06:53 | NUR ---
RN CLOSING NOTES PATIENT RESTING IN BED ,EASILY AROUSABLE. A/OX1. NONVERBAL. NO SIGNS OF DISTRESS OR DISCOMFORT. BREATHING EVEN AND UNLABORED. [facility] WITH [facility] ORDERED. HAS MICHELE PICC LINE, INTACT WITH NS INFUSING. HAS F/C INTACT DRAINING CLEAR YELLOW FLUID. GTUBE INTACT ATTACHED TO CATH DRAINING TO GRAVITY WITH APPROX 50ML OF SEROUS FLUID NOTED. ON TELE MONITOR WITH SB 55 NOTED.ALL NEEDS MET. NO SIGNIFICANT CHANGES THROUGH THE NIGHT. PATIENT REPOSITIONED Q2H AND PRN. BED IN LOW LOCKED POSITION WITH SIDE RAILS X2. CALL LIGHT WITHIN REACH. WILL ENDORSE TO AM SHIFT FOR LUIS FERNANDO.
[2020-01-15 06:57] LABS: ALBUMIN 1.8 g/dL (3.4-5.0); BILIRUBIN,TOTAL 0.2 mg/dL (0.2-1.0); CALCIUM, SERUM 7.6 mg/dL (8.5-10.1); PHOSPHORUS 3.2 mg/dL (2.5-4.9); POTASSIUM 3.9 mmol/L (3.5-5.1); TOTAL PROTEIN, SERUM 5.8 g/dL (6.4-8.2)
[2020-01-15 07:03] LABS: THYROID STIMULATING HORMONE 0.619 uIU/mL (0.358-3.74)
[2020-01-15] MEDS ORDERED: ROCURONIUM BROMIDE 50 MG/5 ML ONE (07:17)
[2020-01-15] MEDS ORDERED: MIDAZOLAM HCL 2 MG/2ML VIAL ONE (07:17)
[2020-01-15] MEDS ORDERED: HYDROMORPHONE INJ 2 MG/ML DISP.SYRIN ONE (07:17)
--- NOTE | 2020-01-15 07:30 | NUR ---
tele chair inspector and leveler: notes dr. hardy (anesthesiologist) at bedside assessing pt and made aware re: magnesium level 1.2. also o.r. team here to product picker the pt for surgery. called r.t. to assist.
[2020-01-15 07:37] LABS: MAGNESIUM 1.2 mg/dL (1.8-2.4)
--- NOTE | 2020-01-15 07:45 | NUR ---
tele tar pot worker: notes brought pt down via bed with jessica and 2rn with dr. hardy at this time.
--- NOTE | 2020-01-15 09:55 | NUR ---
tele scalemaker: notes received pt from recovery room with dx: s/p 1. Exploratory laparotomy, Small bowel resection, Lysis of adhesion with release of small bowel obstruction. pt remains vent dependent. r.t. at bedside. g-tube remains with drainage via gravity. pt to start g-tube feeding tomorrow at 8am at 10ml/hr. all orders carried out and noted. kept pt comfortable. temp at 96.6 (a). warm blanket provided. ble scd on with kci mattress. tele placed back on. hob elevated. will continue to monitor. Addendum: 01/15/20 at 1046 by RENU COLLAZON surgical dressing to abdomen in place.
[2020-01-15] MEDS ORDERED: MORPHINE SULFATE INJ 2 MG/ML DISP.SYRIN IV PRN (10:00)
[2020-01-15] MEDS: Magnesium 1GM/D5W 100ML PREMIX 100 ML IV SCH ×4 (11:02→14:11)
--- NOTE | 2020-01-15 12:00 | NUR ---
tele marriage and family therapist: notes vss remains stable. resume g-tube drainage via gravity today. turned and repositioned. tracheostomy remains secured at midline via vent with same settings. hob elevated. will continue to monitor.
[2020-01-15] MEDS ORDERED: AMIN30LI2 GT (12:08)
[2020-01-15] MEDS ORDERED: NUT.237L25 (12:08)
--- NOTE | 2020-01-15 14:00 | NUR ---
tele lab coordinator: notes turned and repositioned. kept comfortable. no apparent distress noted. will continue to monitor.
[2020-01-15] MEDS: IV D5/0.45 NACL W/20 MEQ KCL 1L IV PRN ×2 (15:11)
[2020-01-15] MEDS: ANCEF 1 GM/50 ML D5W IV SCH ×2 (15:54)
--- NOTE | 2020-01-15 16:00 | NUR ---
tele pearl peller: notes turned and repositioned. kept comfortable. no apparent distress noted. will continue to monitor.
[2020-01-15] MEDS: METRONIDAZOLE 500MG/ NS 100ML 500 MG in PREMIX 1 EA IV SCH (16:38)
--- NOTE | 2020-01-15 18:30 | NUR ---
tele track repair laborer: notes in bed resting comfortable. hob elevated. g-tube drained with 100ml of cloudy yellow with sediments of gastric contents. f/c drained with 1100ml of cloudy yellow. needs attended. dressing to abdomen intact. needs attended. will continue to monitor.
--- NOTE | 2020-01-15 19:20 | NUR ---
tele voucher examiner: notes bedside report given to louisa berrios) for continuity of care.
--- NOTE | 2020-01-15 19:25 | NUR ---
TELE/RN OPENING NOTES: RECEIVED PATIENT A/OX1. NONVERBAL BUT ABLE TO TRACK WITH EYES. NO SIGNS OF DISTRESS OR DISCOMFORT. BREATHING EVEN AND UNLABORED. ON MECH VENT WITH SETTINGS ORDERED. HAS MICHELE PICC LINE, INTACT AND INFUSING KCL D5 1/2 NS @100 ML /HR, HAS F/C INTACT DRAINING CLEAR YELLOW FLUID. G-TUBE INTACT ATTACHED TO CATH DRAINING TO GRAVITY WITH SEROUS FLUID NOTED. ATTACHED TELE MONITOR WITH SR 70S NOTED. NPO STATUS. GTUBE FEEDING TO BE RESUMED TOMORROW MORNING. SAFETY PRECAUTIONS ARE INITIATED. BED IN LOW LOCKED POSITION WITH SIDE RAILS X2. CALL LIGHT WITHIN REACH. WILL CONTINUE TO MONITOR ACCORDINGLY.
[2020-01-16] VITALS: BP 121/72
[2020-01-16] MEDS: ANCEF 1 GM/50 ML D5W IV SCH ×4 (00:03→08:23)
[2020-01-16] MEDS: METRONIDAZOLE 500MG/ NS 100ML 500 MG in PREMIX 1 EA IV SCH ×2 (00:46→10:23)
[2020-01-16] MEDS: IV D5/0.45 NACL W/20 MEQ KCL 1L IV PRN ×2 (02:20)
[2020-01-16 04:12] VITALS: BP 132/74
[2020-01-16 06:36] LABS: BASOPHILS % (AUTO) 0.2 % (0.0-2.0); EOSINOPHILS % (AUTO) 1.9 % (0.0-6.0); HEMATOCRIT 27 % (39-51); LYMPHOCYTES # (AUTO) 0.5 /CMM (0.8-4.8); MEAN CORPUSCULAR HGB CONC 33 g/dl (31.0-36.0); MEAN CORPUSCULAR VOLUME 86 fL (80-96); MONOCYTES # (AUTO) 0.3 /CMM (0.1-1.30); NEUTROPHILS # (AUTO) 9.2 /CMM (1.8-8.9); NEUTROPHILS % (AUTO) 89.9 % (43.0-81.0); PLATELET COUNT (AUTO) 362 /CMM (150-450); RED BLOOD CELL COUNT(AUTO) 3.18 MIL/uL (4.5-6.0); WHITE BLOOD COUNT (AUTO) 10.3 K/uL (4.3-11.0)
[2020-01-16 06:49] LABS: CALCIUM, SERUM 7.1 mg/dL (8.5-10.1); CREATININE 0.9 mg/dL (0.6-1.3); MAGNESIUM 2.2 mg/dL (1.8-2.4); PHOSPHORUS 3.9 mg/dL (2.5-4.9); POTASSIUM 4.3 mmol/L (3.5-5.1)
--- NOTE | 2020-01-16 07:25 | NUR ---
TELE/RN CLOSING NOTES: PATIENT RESTING IN BED ,EASILY AROUSABLE. A/OX1. NONVERBAL. NO SIGNS OF DISTRESS OR DISCOMFORT. BREATHING EVEN AND UNLABORED. ON MECH VENT WITH SETTINGS ORDERED. HAS MICHELE PICC LINE, INTACT WITH NS INFUSING. HAS F/C INTACT DRAINING CLEAR YELLOW FLUID. GTUBE INTACT ATTACHED TO CATH DRAINING TO GRAVITY WITH APPROX 50ML OF SEROUS FLUID NOTED. ON TELE MONITOR WITH SB 80S NOTED. ALL NEEDS MET. NO SIGNIFICANT CHANGES THROUGH THE NIGHT. PATIENT REPOSITIONED Q2H AND PRN. BED IN LOW LOCKED POSITION WITH SIDE RAILS X2. CALL LIGHT WITHIN REACH. WILL ENDORSE TO AM SHIFT FOR LUIS FERNANDO.
[2020-01-16 08:00] VITALS: BP 130/72
[2020-01-16] MEDS ORDERED: TWOCAL HN 1,000 ML LIQUID GT PRN (08:00)
--- NOTE | 2020-01-16 08:10 | NUR ---
Resumed G-tube feeding as ordered. Jevity 1.2 with starting rate 10 ml/hr to increase gradually to 65ml/hr over 24-48 hr.Will continue to monitor
[2020-01-16] MEDS: JEVITY 1.2 CAL 1,000 ML BOTTLE GT PRN (09:24)
[2020-01-16] MEDS: ENOXAPARIN SODIUM 40 MG/0.4 ML DISP.SYRIN SQ SCH (09:39)
--- NOTE | 2020-01-16 15:20 | NUR ---
Feeding rate increased to 20 ml/hr. Abdomen soft and non distended, no residual noted . Will continue to monitor
[2020-01-16 16:00] VITALS: BP 150/79
--- NOTE | 2020-01-16 18:26 | NUR ---
PATIENT A/OX1. NONVERBAL AND BEDBOUND . BREATHING EVEN AND UNLABORED. ON MECH VENT WITH SETTINGS ORDERED. HAS MICHELE PICC LINE, INTACT H/L . F/C INTACT DRAINING CLEAR YELLOW FLUID. G-TUBE FEEDING ON AT 20ML/HR, TOLERATED WELL . ON TELE MONITOR WITH SB 84S NOTED. ALL NEEDS MET. PATIENT REPOSITIONED Q2H AND PRN. BED IN LOW LOCKED POSITION WITH SIDE RAILS X2. CALL LIGHT WITHIN REACH. WILL ENDORSE TO NEXT SHIFT FOR LUIS FERNANDO.
[2020-01-16 19:30] VITALS: BP 146/85
--- NOTE | 2020-01-16 19:36 | NUR ---
PUBLIC RELATIONS SPECIALIST NOTES PATIENT IN BED, NONVERBAL EYES OPEN, ALERT AND ORIENTED X 1. BREATHING EVEN AND UNLABORED ON MV AT AC 12, FIO2 45%, TV 500, AND PEEP 5. SHOWS NO SIGNS OF ACUTE RESPIRATORY DISTRESS, NO ACUTE PAIN. TELE MONITOR ST AT 100. FC IS CLEAN DRY AND INTACT, FLOWING CLEAR YELLOW URINE. IV ON MICHELE PICC IS CLEAN DRY AND INTACT. SHOWS NO SIGNS OF INFILTRATION, NO REDNESS. SAFETY PRECAUTIONS IN PLACE. BED IN LOWEST POSITION, LOCKED, AND CALL LIGHT KEPT WITHIN REACH. WILL CONTINUE TO MONITOR.
[2020-01-16 20:17] VITALS: BP 146/85
[2020-01-17] VITALS: BP 143/77
[2020-01-17 04:04] VITALS: BP 151/81
--- NOTE | 2020-01-17 06:42 | NUR ---
VETERINARIAN LABORATORY ANIMAL CARE NOTES PATIENT IN BED, NONVERBAL EYES OPEN, ALERT AND ORIENTED X 1. BREATHING EVEN AND UNLABORED ON MV AT AC 12, FIO2 45%, TV 500, AND PEEP 5. SHOWS NO SIGNS OF ACUTE RESPIRATORY DISTRESS, NO ACUTE PAIN. TELE MONITOR SR WITH PVC AND PAC AT 92HR. FC IS CLEAN DRY AND INTACT, FLOWING CLEAR YELLOW URINE. IV ON MICHELE PICC IS CLEAN DRY AND INTACT. SHOWS NO REDNESS, NO INFILTRATION. GTUBE JEVITY 1.2 AT 30ML/HR, NO RESIDUALS, PT TOLERATING. ALL DUE MEDICATIONS GIVEN. SAFETY PRECAUTIONS IN PLACE. BED IN LOWEST POSITION, LOCKED, AND CALL LIGHT KEPT WITHIN REACH. WILL ENDORSE TO ONCOMING NURSE.
[2020-01-17 08:00] VITALS: BP 136/94
--- NOTE | 2020-01-17 08:00 | NUR ---
MS RN- OPEING NOTES Received patient from asbestos shingle roofer nurse in bed, awake, non-verbal and eyes open, patient with tracheo/vent dependent. Unlabored breathing at MV AT AC 12, FIO2 45%, TV 500, AND PEEP 5. With PICC MICHELE, skin intact, no redness noted, hypoactive bowel sounds noted and distended abdomen, elevated head of bed, abdominal dressing noted and intact, GT tube Jevity 1.2 at 30 ml/hr, with Elizabeth catheter draining light yellow output, turn to side and positional every 2 hrs.
[2020-01-17] MEDS: ENOXAPARIN SODIUM 40 MG/0.4 ML DISP.SYRIN SQ SCH (08:43)
[2020-01-17 12:00] VITALS: BP 117/75
[2020-01-17] MEDS ORDERED: MULTIVITAMINS GT SCH (15:30)
--- NOTE | 2020-01-17 15:42 | NUR ---
MS RN- GT FEEDING Increased GT tube feeding to 40 ml/hr, patient tolerated well, turn and reposition q2H.
[2020-01-17 15:55] VITALS: BP 162/77
[2020-01-17] MEDS: METOPROLOL TARTRATE 50 MG TABLET GT SCH (16:16)
--- NOTE | 2020-01-17 18:51 | NUR ---
MS RN- CLOSING NOTES Endorsed patient to night nurse in bed, semi-mancilla's position, with eyes open and awake, alert, will react to non-verbal cues, with trache attached to MV AT AC 12, FIO2 45%, TV 500, AND PEEP 5.With PICC line at right upper arm, no infitration and redness noted, Sacral skin tear noted, GT Tube with Jevity at 40 ml/hr infusing well, ambriz catheter with yellowish color urine.
--- NOTE | 2020-01-17 19:38 | NUR ---
ERP TECHNICAL LEAD OPENING NOTES PATIENT RESTING IN BED COMFORTABLY; AWAKE, A/O X 1 PATIENT NON-VERBAL; BREATHING EVEN AND UNLABORED; NO SOB OR ACUTE RESPIRATORY DISTRESS NOTED; NO CHANGES IN VENT SETTINGS; PATIENT TOLERATING VENT SETTINGS WELL; TELE MONITOR READS SR WITH 77HR; G TUBE INTACT AND PATENT; PATIENT TOLERATING GTUBE FEEDING AT 40ML/HR; MICHELE PICC LINE SL INTACT AND PATENT; FLUSHING WELL; NO S/S OF REDNESS OR INFILTRATION NOTED; WEISS CATH IN PLACE; FLOWING YELLOW OUTPUT; SAFETY PRECAUTIONS IN PLACE; BED LOCKED IN LOW POSITION; SIDE RAILS X3; CALL LIGHT WITHIN REACH; WILL CONTINUE TO MONITOR
[2020-01-17 20:00] VITALS: BP 130/63
[2020-01-17] MEDS: TAMSULOSIN 0.4 MG CAP.SR.24H GT SCH (21:18)
[2020-01-17] MEDS: LEVETIRACETAM SOL (5 ML) 100 MG/ML UDC GT SCH (21:18)
[2020-01-17] MEDS: ATORVASTATIN 10 MG TABLET PO SCH (21:18)
[2020-01-17] MEDS: JEVITY 1.2 CAL 1,000 ML BOTTLE GT PRN (23:18)
[2020-01-18] VITALS: BP 101/60
--- NOTE | 2020-01-18 | NUR ---
ADVOCACY DIRECTOR NOTES G-TUBE FEEDING INCREASED TO 50ML/HR; WILL CONTINUE TO MONITOR IF PATIENT TOLERATES TUBE FEEDING;
[2020-01-18 04:00] VITALS: BP 106/45
--- NOTE | 2020-01-18 06:26 | NUR ---
PRIVACY MANAGER CLOSING NOTES PATIENT RESTING IN BED COMFORTABLY; A/OX1; PATIENT IS NONVERBAL BUT OPENS EYES; BREATHING EVEN AND UNLABORED; NO CHANGES IN VENT SETTINGS AT THIS TIME; NO SOB OR ACUTE RESPIRATORY DISTRESS NOTED; TELE MONITOR READS SINUS RHYTHM 77HR; MICHELE PICC LINE INTACT AND PATENT; FLUSHING WELL, NO S/S OF REDNESS OR INFILTRATION; WEISS CATH IN PLACE; FLOWING YELLOW UO; JEVITY 1.2 RUNNING AT 65ML/HR, PATIENT TOLERATING TUBE FEEDING WELL; ALL NEEDS RENDERED; SAFETY PRECAUTIONS IMPLEMENTED; BED LOCKED IN LOW POSITION; SIDE RAILS X3; CALL LIGHT WITHIN REACH; WILL ENDORSE LUIS FERNANDO TO ONCOMING SHIFT
--- NOTE | 2020-01-18 07:20 | NUR ---
LEISURE STUDIES PROFESSOR OPENING NOTES RECEIVED PT IN BED, AWAKE, HOB ELEVATED TO HIGH FOWLERS AND EYES OPEN AT THIS TIME. PT IS A/O X1, NON-VERBAL, BREATHING EVEN AND UNLABORED; NO SOB OR ACUTE RESPIRATORY DISTRESS NOTED. PT WITH TRACHEOSTOMY/VENT DEPENDENT. MV AT AC 12, FIO2 45%, TV 500 AND PEEP 5. PT TOLERATING VENT SETTINGS WELL. TELE COMPOSITE BOND TECHNICIAN RIN THE 70'S. PT ON JEVITY 1.2 GTUBE FEEDING INFUSING WELL @ 65ML/HR, INTACT AND PATENT WITH NO RESIDUAL NOTED, PT TOLERATING FEEDING WELL. MICHELE PICC LINE SL INTACT AND PATENT; NO S/S OF REDNESS OR INFILTRATION NOTED; WEISS CATH IN PLACE, DRAINING TO GRAVITY CLEAR YELLOW URINE OUTPUT. SAFETY PRECAUTIONS IN PLACE AT THIS TIME. BED IN LOWEST LOCKED POSITION, SIDE RAILS UP X3 AND PADDED, CALL LIGHT WITHIN REACH. WILL CONTINUE TO MONITOR
[2020-01-18 08:00] VITALS: BP 100/43
[2020-01-18] MEDS: ASCORBIC ACID 500 MG TABLET GT SCH (08:47)
[2020-01-18] MEDS: LEVETIRACETAM SOL (5 ML) 100 MG/ML UDC GT SCH ×2 (08:47→21:55)
[2020-01-18] MEDS: PANTOPRAZOLE 40 MG/PACK PACK GT SCH (08:47)
[2020-01-18] MEDS: ENOXAPARIN SODIUM 40 MG/0.4 ML DISP.SYRIN SQ SCH (08:51)
[2020-01-18] MEDS: METOPROLOL TARTRATE 50 MG TABLET GT SCH ×2 (09:00→17:56)
[2020-01-18] MEDS: AMIODARONE HCL 200 MG TABLET GT SCH (09:00)
[2020-01-18] MEDS: MULTIVITAMINS,THERAGRAN 1 UDTAB TABLET GT SCH (15:31)
[2020-01-18 15:56] VITALS: BP 151/73
[2020-01-18] MEDS: JEVITY 1.2 CAL 1,000 ML BOTTLE GT PRN (17:57)
--- NOTE | 2020-01-18 19:05 | NUR ---
ASSOCIATE CIVIL ENGINEER CLOSING NOTES PT IN BED, AWAKE, HOB ELEVATED TO HIGH FOWLERS AND EYES OPEN AT THIS TIME. PT IS A/O X1, NON-VERBAL, BREATHING EVEN AND UNLABORED; NO SOB OR ACUTE RESPIRATORY DISTRESS NOTED. PT WITH TRACHEOSTOMY/VENT DEPENDENT. PT TOLERATING VENT SETTINGS WELL. PT ON JEVITY 1.2 GTUBE FEEDING INFUSING WELL @ 65ML/HR, INTACT AND PATENT WITH NO RESIDUAL NOTED, PT TOLERATING GTUBE FEEDING WELL. MICHELE PICC LINE SL INTACT AND PATENT; ADL'S AND SKIN CARE PROVIDED FOR ANTICIPATED, PT REPOSITIONED Q2HRS, PER PROTOCOL AND NEEDED. BED IN LOWEST LOCKED POSITION, SIDE RAILS UP X3 AND PADDED, CALL LIGHT WITHIN REACH. WILL ENDORSE TO NIGHT NURSE FOR LUIS FERNANDO
--- NOTE | 2020-01-18 19:21 | NUR ---
HOTEL FRONT DESK CLERK: RECEIVED PATIENT Patient in bed, awake, non verbal, eyes open. Trach intact, on mechanical vent. Sinus Rhythm in the Tele monitor. Gtube feeding infusing, ambriz cath to gravity. Fall; skin; aspiration precaution maintained.
[2020-01-18 20:00] VITALS: BP 102/57
[2020-01-18 20:40] VITALS: BP 102/57
[2020-01-18] MEDS: ATORVASTATIN 10 MG TABLET PO SCH (21:55)
[2020-01-18] MEDS: TAMSULOSIN 0.4 MG CAP.SR.24H GT SCH (21:55)
[2020-01-19] VITALS (8 sets, daily range): BP systolic 104–140; BP diastolic 53–59
[2020-01-19] MEDS: JEVITY 1.2 CAL 1,000 ML BOTTLE GT PRN ×2 (05:10→21:51)
[2020-01-19 06:16] LABS: BASOPHILS % (AUTO) 0.2 % (0.0-2.0); EOSINOPHILS % (AUTO) 4.5 % (0.0-6.0); HEMATOCRIT 22 % (39-51); HEMOGLOBIN 7.2 g/dL (13.5-17.5); LYMPHOCYTES # (AUTO) 0.7 /CMM (0.8-4.8); LYMPHOCYTES % (AUTO) 12.7 % (20.0-44.0); MEAN CORPUSCULAR HGB CONC 33 g/dl (31.0-36.0); MEAN CORPUSCULAR VOLUME 85 fL (80-96); MONOCYTES # (AUTO) 0.4 /CMM (0.1-1.30); MONOCYTES % (AUTO) 6.5 % (2.0-12.0); NEUTROPHILS # (AUTO) 4.4 /CMM (1.8-8.9); NEUTROPHILS % (AUTO) 76.1 % (43.0-81.0); PLATELET COUNT (AUTO) 303 /CMM (150-450); WHITE BLOOD COUNT (AUTO) 5.8 K/uL (4.3-11.0)
--- NOTE | 2020-01-19 06:27 | NUR ---
GRANITE POLISHER: END OF SHIFT REPORT Patient in bed. Sinus David/Sinus Rhythm. Mechanical vent settings remains the same. Medial abdomen dressing C/D/I. Had BM x2 this shift, abdomen still distended, rounded and firmed. Tolerating tube feeding 65ml/hr goal rate, no vomiting. Fall; Skin; Aspiration precaution maintained.
[2020-01-19 06:28] LABS: CALCIUM, SERUM 7.6 mg/dL (8.5-10.1); CREATININE 0.8 mg/dL (0.6-1.3); MAGNESIUM 1.5 mg/dL (1.8-2.4); PHOSPHORUS 2.5 mg/dL (2.5-4.9); POTASSIUM 3.9 mmol/L (3.5-5.1)
--- NOTE | 2020-01-19 07:15 | NUR ---
DIRECTOR OF STAFF DEVELOPMENT NOTES PATIENT EYES CLOSED EASY TO AROUSE, NON VERBAL. RESPOND TO VERBAL AND TACTILE STIMULI. NO ACUTE DISTRESS NOTED. WITH TRACH AND VENT TOLERATING WELL. ON JEVITY 1.2 RUNNING AT 65ML/HR, PATIENT TOLERATING TUBE FEEDING WELL. WEISS CATHETER INTACT DRAINING YELLOW URINE OUTPUT. IV ACCESS PATENT AND INTACT, NO SWELLING, NO REDNESS NOTED. SAFETY MEASURES IN PLACE. CALL LIGHT WITHIN REACH. WILL CONTINUE TO MONITOR ACCORDINGLY.
[2020-01-19] MEDS: LEVETIRACETAM SOL (5 ML) 100 MG/ML UDC GT SCH ×2 (08:49→21:06)
[2020-01-19] MEDS: AMIODARONE HCL 200 MG TABLET GT SCH (08:51)
[2020-01-19] MEDS: PANTOPRAZOLE 40 MG/PACK PACK GT SCH (08:51)
[2020-01-19] MEDS: ASCORBIC ACID 500 MG TABLET GT SCH (08:51)
[2020-01-19] MEDS: METOPROLOL TARTRATE 50 MG TABLET GT SCH ×2 (08:51→17:39)
[2020-01-19] MEDS: MULTIVITAMINS,THERAGRAN 1 UDTAB TABLET GT SCH (08:51)
[2020-01-19] MEDS: ENOXAPARIN SODIUM 40 MG/0.4 ML DISP.SYRIN SQ SCH (08:52)
--- NOTE | 2020-01-19 09:34 | NUR ---
WOUND CARE CONSULT: PT FOLLOWED BY SURGICAL TEAM FOR WOUND CARE. DEFER TO SURGICAL TEAM FOR WOUND TREATMENT PLAN. PT ON FIRST STEP CIRRUS LOW AIRLOSS MATTRESS. ALL SKIN PROTECTION MEASURES IN PLACE AND DISCUSSED WITH NURSING STAFF. WILL SEE PRN. CURRENT FRANCO SCORE IS 12.
[2020-01-19] MEDS: Magnesium 1GM/D5W 100ML PREMIX 100 ML IV SCH ×2 (09:35→10:44)
--- NOTE | 2020-01-19 19:14 | NUR ---
DRILLING FIELD PROFESSIONAL NOTES PATIENT EYES CLOSED EASY TO AROUSE, NON VERBAL. RESPOND TO VERBAL AND TACTILE STIMULI. NO ACUTE DISTRESS NOTED. WITH TRACH AND VENT TOLERATING WELL. ON JEVITY 1.2 RUNNING AT 65ML/HR, PATIENT TOLERATING TUBE FEEDING WELL. WEISS CATHETER INTACT DRAINING YELLOW URINE OUTPUT. IV ACCESS PATENT AND INTACT, NO SWELLING, NO REDNESS NOTED.TURN AND REPOSITION EVERY 2 HOURS AND NEEDED. NEEDS ATTENDED AND ANTICIPATED. SAFETY MEASURES IN PLACE. CALL LIGHT WITHIN REACH. WILL ENDORSE TO NIGHT NURSE FOR CONTINUITY OF CARE.
--- NOTE | 2020-01-19 19:48 | NUR ---
DRY ICE MAKER NOTES PATIENT IN BED, NONVERBAL, EYE CLOSED, EASY TO AROUSE. BREATHING EVEN AND UNLABORED ON MV AT AC 12 FIO2 45 TV 500 PEEP 5. SHOWS NO SIGNS OF ACUTE RESPIRATORY DISTRESS, NO ACUTE PAIN. TOLERATING VENT SETTINGS. TELE MONITOR SR ON 61HR. FC IS CLEAN DRY AND INTACT. FLOWING YELLOW CLEAR URINE. GTUBE RUNNING JEVITY 1.2 AT 65ML/HR TOLERATING FEEDING. MICHELE PICC LINE INTACT. SHOWS NO SIGNS OF INFILTRATION, NO REDNESS. SAFETY PRECAUTIONS IN PLACE. BED IN LOWEST POSITION, LOCKED, AND CALL LIGHT KEPT WITHIN REACH. WILL CONTINUE TO MONITOR.
[2020-01-19] MEDS: TAMSULOSIN 0.4 MG CAP.SR.24H GT SCH (21:06)
[2020-01-20 00:01] VITALS: BP 92/49
[2020-01-20 04:00] VITALS: BP 95/54
--- NOTE | 2020-01-20 05:56 | NUR ---
RT NOTE: RECEIVED TRACH PT ON ORDERED NOTED VENT SETTINGS. NO RESPIRATORY DISTRESS NOTED. TRACH CHECKED SECURE AND PATENT. SXD AND LAVAGE Q ROUND AND NEEDED. TRACH CARE DONE. EMERGENCY EQUIPMENT @ BEDSIDE. VENT ALARMS CHECKED AND AUDIBLE.
--- NOTE | 2020-01-20 06:33 | NUR ---
ORDNANCE EQUIPMENT WORKER NOTES PATIENT IN BED, NONVERBAL, EYE CLOSED, EASY TO AROUSE. BREATHING EVEN AND UNLABORED ON MV. SHOWS NO SIGNS OF ACUTE RESPIRATORY DISTRESS, NO ACUTE PAIN. TOLERATING VENT SETTINGS. TELE MONITOR SR ON 61HR. FC IS CLEAN DRY AND INTACT. FLOWING YELLOW CLEAR URINE. GTUBE RUNNING JEVITY 1.2 AT 65ML/HR TOLERATING FEEDING. MICHELE PICC LINE INTACT. SHOWS NO SIGNS OF INFILTRATION, NO REDNESS. ALL DUE MEDICATIONS GIVEN. SAFETY PRECAUTIONS IN PLACE. BED IN LOWEST POSITION, LOCKED, AND CALL LIGHT KEPT WITHIN REACH. WILL ENDORSE TO ONCOMING NURSE.
[2020-01-20 06:39] LABS: BASOPHILS % (AUTO) 0.3 % (0.0-2.0); EOSINOPHILS % (AUTO) 3.5 % (0.0-6.0); HEMATOCRIT 25 % (39-51); HEMOGLOBIN 8.2 g/dL (13.5-17.5); LYMPHOCYTES # (AUTO) 0.6 /CMM (0.8-4.8); MEAN CORPUSCULAR HGB CONC 33 g/dl (31.0-36.0); MEAN CORPUSCULAR VOLUME 85 fL (80-96); MONOCYTES # (AUTO) 0.3 /CMM (0.1-1.30); MONOCYTES % (AUTO) 6.3 % (2.0-12.0); NEUTROPHILS % (AUTO) 78.9 % (43.0-81.0); PLATELET COUNT (AUTO) 283 /CMM (150-450); RED BLOOD CELL COUNT(AUTO) 2.94 MIL/uL (4.5-6.0); WHITE BLOOD COUNT (AUTO) 5.1 K/uL (4.3-11.0)
[2020-01-20 07:03] LABS: CALCIUM, SERUM 7.8 mg/dL (8.5-10.1); CREATININE 0.9 mg/dL (0.6-1.3); MAGNESIUM 1.8 mg/dL (1.8-2.4); PHOSPHORUS 2.9 mg/dL (2.5-4.9); POTASSIUM 4.1 mmol/L (3.5-5.1)
--- NOTE | 2020-01-20 07:30 | NUR ---
ASSEMBLER CORNCOB PIPES NOTES RECEIVED PT IN BED, ASLEEP, EASILY AROUSED, OPENS EYES, NONVERBAL. PT TOLERATING CURRENT VENT SETTING, WITH NO ACUTE RESPIRATORY DISTRESS NOTED. PT NOT EXHIBITING ANY PAIN OR DISCOMFORT AT THIS TIME. ON TELEMONITORING WITH SR 72. MICHELE PICC, FLUSHED WITH NS, INTACT AND OPERATIONAL. PT KEPT COMFORTABLE IN BED. CALL LIGHT KEPT WITHIN REACH. HOB ELEVATED. PT'S BED IN LOWEST, LOCKED POSITION WITH SRX3. WILL CONTINUE PLAN OF CARE.
[2020-01-20 08:00] VITALS: BP 107/56
[2020-01-20] MEDS: LEVETIRACETAM SOL (5 ML) 100 MG/ML UDC GT SCH ×2 (08:46→21:09)
[2020-01-20] MEDS: PANTOPRAZOLE 40 MG/PACK PACK GT SCH (08:46)
[2020-01-20] MEDS: ASCORBIC ACID 500 MG TABLET GT SCH (08:46)
[2020-01-20] MEDS: MULTIVITAMINS,THERAGRAN 1 UDTAB TABLET GT SCH (08:46)
[2020-01-20] MEDS: METOPROLOL TARTRATE 50 MG TABLET GT SCH ×2 (08:47→16:24)
[2020-01-20] MEDS: AMIODARONE HCL 200 MG TABLET GT SCH (08:47)
[2020-01-20] MEDS: ENOXAPARIN SODIUM 40 MG/0.4 ML DISP.SYRIN SQ SCH (08:48)
[2020-01-20] MEDS ORDERED: POTASSIUM CHLORIDE 20 MEQ POWDER PACKET GT ONE (09:00)
[2020-01-20 12:00] VITALS: BP 110/52
[2020-01-20 16:00] VITALS: BP 128/50
[2020-01-20] MEDS: JEVITY 1.2 CAL 1,000 ML BOTTLE GT PRN (16:34)
--- NOTE | 2020-01-20 18:51 | NUR ---
ADAPTED PHYSICAL EDUCATION SPECIALIST CLOSING NOTES PT REMAINS IN BED, INTERMITTENTLY DOZING OFF, OPENS EYES, NONVERBAL. PT TOLERATING CURRENT VENT SETTING, WITH NO ACUTE RESPIRATORY DISTRESS NOTED. PT NOT EXHIBITING ANY PAIN OR DISCOMFORT AT THIS TIME. ON TELEMONITORING WITH SR 72. MICHELE PICC, FLUSHED WITH NS, INTACT AND OPERATIONAL. GT FEEDING JEVITY 1.2 @65ML/HR, INTACT WITH NO RESIDUAL. FC IN PLACE WITH CLEAR YELLOW URINE, OUTPUT OF 100ML. PT KEPT COMFORTABLE IN BED. ALL NEEDS AND CARE ATTENDED. CALL LIGHT KEPT WITHIN REACH. HOB ELEVATED. PT TURNED AND REPOSITIONED Q2 HOURS. PT'S BED IN LOWEST, LOCKED POSITION WITH SRX3. WILL ENDORSE TO INCOMING NIGHT NURSE FOR LUIS FERNANDO.
[2020-01-20 20:00] VITALS: BP 110/49
--- NOTE | 2020-01-20 20:00 | NUR ---
RN NOTES RECEIVED PATIENT, ALERT AND AWAKE, NON-VERBAL, DEPENDENT ON VENTILATOR, SPO2 100%, NOT IN APPARENT DISTRESS, CALM, GT TUBE FEEDING INFUSING WELL AT 65 ML/HR, ZERO RESIDUAL, FLUSHED, WEISS CATHETER DRAINING WELL, LIQUID STOOL NOTED, GIVEN BED BATH, WILL CONTINUE TO MONITOR.
[2020-01-20] MEDS: TAMSULOSIN 0.4 MG CAP.SR.24H GT SCH (21:09)
[2020-01-20 21:16] LABS: OCCULT BLOOD STOOL NEGATIVE (NEGATIVE)
[2020-01-21] VITALS: BP 137/68
[2020-01-21 04:00] VITALS: BP 108/50
--- NOTE | 2020-01-21 06:36 | NUR ---
RN NOTES PM SHIFT ALERT AND AWAKE, NON-VERBAL, VENTILATOR DEPENDENT, SPO2 100%, NOT IN APPARENT PAIN, COOPERATIVE, SBO WITH EXPLORATORY LAPAROTOMY, LOWER ABDOMEN PUNCTURE SITES SECURED WITH DRESSING, NO BLEEDING, PEG TUBE FEEDING TOLERATED WELL, WEISS CATHETER DRAINING WITH CLEAR URINE, BM X2, STOOL NEGATIVE OF OCCULT BLOOD, VS STABLE, CONTINUE HOSPITALIZATION, DISCHARGE PLANNING BACK TO [facility]
--- NOTE | 2020-01-21 07:31 | NUR ---
ENGINEER TECHNICIAN OPENING NOTES RECEIVED PT IN BED, ASLEEP, EASILY AROUSED, OPENS EYES, NONVERBAL. PT TOLERATING CURRENT VENT SETTING, WITH NO ACUTE RESPIRATORY DISTRESS NOTED. PT NOT EXHIBITING ANY PAIN OR DISCOMFORT AT THIS TIME. ON TELEMONITORING WITH SR 84. MICHELE PICC, FLUSHED WITH NS, INTACT AND OPERATIONAL. PT KEPT COMFORTABLE IN BED. CALL LIGHT KEPT WITHIN REACH. HOB ELEVATED. PT'S BED IN LOWEST, LOCKED POSITION WITH SRX3. WILL CONTINUE PLAN OF CARE.
[2020-01-21 08:00] VITALS: BP 113/55
[2020-01-21] MEDS: ASCORBIC ACID 500 MG TABLET GT SCH (09:21)
[2020-01-21] MEDS: MULTIVITAMINS,THERAGRAN 1 UDTAB TABLET GT SCH (09:21)
[2020-01-21] MEDS: LEVETIRACETAM SOL (5 ML) 100 MG/ML UDC GT SCH ×2 (09:21→20:37)
[2020-01-21] MEDS: METOPROLOL TARTRATE 50 MG TABLET GT SCH ×2 (09:24→17:01)
[2020-01-21] MEDS: PANTOPRAZOLE 40 MG/PACK PACK GT SCH (09:24)
[2020-01-21] MEDS: AMIODARONE HCL 200 MG TABLET GT SCH (09:24)
[2020-01-21] MEDS: ENOXAPARIN SODIUM 40 MG/0.4 ML DISP.SYRIN SQ SCH (09:25)
[2020-01-21] MEDS: JEVITY 1.2 CAL 1,000 ML BOTTLE GT PRN (09:37)
[2020-01-21 16:00] VITALS: BP 143/89
--- NOTE | 2020-01-21 18:40 | NUR ---
CARE TRANSITIONS NURSE CLOSING NOTES PT REMAINS IN BED, INTERMITTENTLY DOZING OFF, OPENS EYES, NONVERBAL. PT TOLERATING CURRENT VENT SETTING, WITH NO ACUTE RESPIRATORY DISTRESS NOTED. PT NOT EXHIBITING ANY PAIN OR DISCOMFORT AT THIS TIME. ON TELEMONITORING WITH SR 80. MICHELE PICC, FLUSHED WITH NS, INTACT AND OPERATIONAL. GT FEEDING JEVITY 1.2 @65ML/HR, INTACT WITH NO RESIDUAL. FC IN PLACE WITH CLEAR YELLOW URINE, OUTPUT OF 1000ML. PT KEPT COMFORTABLE IN BED. ALL NEEDS AND CARE ATTENDED. CALL LIGHT KEPT WITHIN REACH. HOB ELEVATED. PT TURNED AND REPOSITIONED Q2 HOURS. PT'S BED IN LOWEST, LOCKED POSITION WITH SRX3. WILL ENDORSE TO INCOMING NIGHT NURSE FOR LUIS FERNANDO.
--- NOTE | 2020-01-21 19:10 | NUR ---
SMOKING PIPE LINER OPENING NOTES RECEIVED PATIENT IN BED AWAKE NON VERBAL OPENS EYES , VENT DEPENDENT, RESPIRATIONS EVEN AND UNLABORED WITH EQUAL RISE AND FALL OF CHEST, MECH VENT PLUGGED IN TO RED PLUGG, ALARMS AUDIBLE, CONTINUOUS PULSE OX INTACT, VS O2 WNL. HEAD OF BED ELEVATED FOR ASPIRATION PRECAUTIONS, GTUBE INTACT, RIGHT UPPER ARM PICC LINE INTACT DRESSING C/D/I. WEISS CATHETER INTACT AND DRAINING, ORIENTED TO STAFF AND CALL LIGHT AND KEPT WITHIN REACH, REMAINS COMFORTABLE AT THIS TIME, WILL CONTINUE TO MONITOR AND ATTEND TO NEEDS.
[2020-01-21 20:00] VITALS: BP 140/92
[2020-01-21] MEDS: TAMSULOSIN 0.4 MG CAP.SR.24H GT SCH (21:15)
[2020-01-22] VITALS: BP 130/69
[2020-01-22 00:02] VITALS: BP 120/69
[2020-01-22] MEDS: JEVITY 1.2 CAL 1,000 ML BOTTLE GT PRN (02:18)
[2020-01-22 04:00] VITALS: BP 128/58
[2020-01-22 04:09] VITALS: BP 128/58
--- NOTE | 2020-01-22 06:07 | NUR ---
CREW DISPATCHER CLOSING NOTES PATIENT IN BED AWAKE NON VERBAL OPENS EYES , VENT DEPENDENT, RESPIRATIONS EVEN AND UNLABORED WITH EQUAL RISE AND FALL OF CHEST, MECH VENT PLUGGED IN TO RED PLUG, ALARMS AUDIBLE, CONTINUOUS PULSE OX INTACT, VS O2 WNL. HEAD OF BED ELEVATED FOR ASPIRATION PRECAUTIONS, GTUBE INTACT, RIGHT UPPER ARM PICC LINE INTACT DRESSING C/D/I. WEISS CATHETER INTACT AND DRAINING TOTAL OUTPUT 1110, CALL LIGHT KEPT WITHIN REACH, REMAINS COMFORTABLE AT THIS TIME, WILL CONTINUE TO MONITOR AND ATTEND TO NEEDS AND ENDORSE TO NEXT SHIFT, RESIDUALS 0ML AT THIS TIME. WOUND CARE DONE ORDERED REPOSITIONED AND OFFLOADED.
--- NOTE | 2020-01-22 06:10 | NUR ---
ON LOAN CLOSER SR 61
[2020-01-22 06:31] LABS: BASOPHILS % (AUTO) 0.8 % (0.0-2.0); EOSINOPHILS % (AUTO) 3.9 % (0.0-6.0); HEMATOCRIT 25 % (39-51); HEMOGLOBIN 8.3 g/dL (13.5-17.5); LYMPHOCYTES # (AUTO) 0.8 /CMM (0.8-4.8); LYMPHOCYTES % (AUTO) 13.5 % (20.0-44.0); MEAN CORPUSCULAR HGB CONC 33 g/dl (31.0-36.0); MEAN CORPUSCULAR VOLUME 84 fL (80-96); MONOCYTES # (AUTO) 0.5 /CMM (0.1-1.30); MONOCYTES % (AUTO) 7.9 % (2.0-12.0); NEUTROPHILS # (AUTO) 4.5 /CMM (1.8-8.9); NEUTROPHILS % (AUTO) 73.9 % (43.0-81.0); PLATELET COUNT (AUTO) 327 /CMM (150-450); RED BLOOD CELL COUNT(AUTO) 2.99 MIL/uL (4.5-6.0); WHITE BLOOD COUNT (AUTO) 6.1 K/uL (4.3-11.0)
[2020-01-22 06:43] LABS: CALCIUM, SERUM 8.4 mg/dL (8.5-10.1); CREATININE 0.8 mg/dL (0.6-1.3); MAGNESIUM 1.5 mg/dL (1.8-2.4); PHOSPHORUS 4.1 mg/dL (2.5-4.9); POTASSIUM 4.1 mmol/L (3.5-5.1)
--- NOTE | 2020-01-22 07:25 | NUR ---
DESCRIPTIVE CATALOG LIBRARIAN NOTES PATIENT RESTING IN BED, NO RESPIRATORY DISTRESS NOTED, VENT SETTINGS PRESCRIBED. NO S/S OF ANY DISCOMFORT AT THIS TIME. CAKE WRINGER ON SR 80. SKIN WARM TO TOUCH, GT FEEDING OF JEVITY 1.2 RUNNING AT 65ML/HR, NO RESIDUAL AND TOLERATING FEEDING WELL. PICC LINE ON THE MICHELE INTACT AND PATENT. F/C DRAINING YELLOW URINE. PATIENT'S NEEDS ATTENDED, BED ON LOWEST LOWEST LOCKED POSITION, SIDE RAILS UP X3, CALL LIGHT WITHIN REACH. WILL CONTINUE TO MONITOR.
[2020-01-22 07:49] LABS: EOSINOPHILS % (MANUAL) 4 % (0-4); LYMPHOCYTES % (MANUAL) 14 % (16-48); MONOCYTES % (MANUAL) 8 % (0-11.0); NEUTROPHILS % (MANUAL) 74 (42-76)
[2020-01-22] MEDS: MULTIVITAMINS,THERAGRAN 1 UDTAB TABLET GT SCH (09:54)
[2020-01-22] MEDS: PANTOPRAZOLE 40 MG/PACK PACK GT SCH (09:54)
[2020-01-22] MEDS: LEVETIRACETAM SOL (5 ML) 100 MG/ML UDC GT SCH (09:54)
[2020-01-22] MEDS: ENOXAPARIN SODIUM 40 MG/0.4 ML DISP.SYRIN SQ SCH (09:54)
[2020-01-22] MEDS: ASCORBIC ACID 500 MG TABLET GT SCH (09:54)
[2020-01-22] MEDS: METOPROLOL TARTRATE 50 MG TABLET GT SCH (09:54)
[2020-01-22] MEDS: Magnesium 1GM/D5W 100ML PREMIX 100 ML IV SCH ×2 (09:55→11:01)
[2020-01-22 11:32] VITALS: BP 106/56
[2020-01-22] MEDS: AMIODARONE HCL 200 MG TABLET GT SCH (11:32)
--- NOTE | 2020-01-22 16:15 | NUR ---
RECEIVED PT @ 0932. NO SOB NOTED AT THIS TIME. AIRWAY PATENT AND SECURED. PT SUCTIONED. ALARMS SET AND AUDIBLE. VENT CONNECTED TO RED OUTLET. AMBU BAG AT BEDSIDE. WILL CONT TO MONITOR
--- NOTE | 2020-01-22 16:25 | NUR ---
M/S RN NOTES PATIENT DISCHARGED IN STABLE CONDITION, NO RESPIRATORY DISTRESS, VENT SETTINGS PRESCRIBED, NO S/S OF DISCOMFORT. SKIN WARM TO TOUCH, GT FEEDING OF JEVITY 1.2 RUNNING AT 65ML/HR, NO RESIDUAL AND TOLERATING FEEDING WELL. PICC LINE ON THE MICHELE INTACT AND PATENT. SKIN ASSESSED INCISION ON THE ABDOMEN WITH RIGOBERTO COVERED WITH DRESSING, NO S/S OF INFECTION. PATIENT WITH NO BELONGINGS. F/C DRAINING YELLOW URINE. PATIENT'S NEEDS ATTENDED, PATIENT TRANSFERRED TO SUBACUTE WITH RT MICHELE VIA HOSPITAL BED. REPORT GIVEN TO FRANCO LUCIA.
[2020-04-30] MEDS ORDERED: CEFE2FRO IV (07:20)
== END 2020-01-22 16:03 | DRG 329 ==
LOC: TELE 22:57
PROVIDERS: ADMIT Internal Medicine; ATTEND Nurse Practitioner Acute Care
PROC: 5A1955Z Respiratory Ventilation, Greater than 96 Consecutive Hours (ICD-10-PCS; principal; 2020-01-15)
PROC: 0DTB0ZZ Resection of Ileum, Open Approach (ICD-10-PCS; 2020-01-15)
PROC: 02HV33Z Insertion of Infusion Device into Superior Vena Cava, Percutaneous Approach (ICD-10-PCS; 2020-01-15)
PROC: B548ZZA Ultrasonography of Superior Vena Cava, Guidance (ICD-10-PCS; 2020-01-15)
DX: K56.50 Intestinal adhesions [bands], unspecified as to partial versus complete obstruction (principal); G93.41 Metabolic encephalopathy; N17.0 Acute kidney failure with tubular necrosis; E43 Unspecified severe protein-calorie malnutrition; J96.22 Acute and chronic respiratory failure with hypercapnia; J96.21 Acute and chronic respiratory failure with hypoxia; K52.0 Gastroenteritis and colitis due to radiation; E87.1 Hypo-osmolality and hyponatremia; Z99.11 Dependence on respirator [ventilator] status; I13.0 Hypertensive heart and chronic kidney disease with heart failure and stage 1 through stage 4 chronic kidney disease, or unspecified chronic kidney disease; K56.7 Ileus, unspecified; K21.9 Gastro-esophageal reflux disease without esophagitis; I48.91 Unspecified atrial fibrillation; N40.0 Benign prostatic hyperplasia without lower urinary tract symptoms; I11.0 Hypertensive heart disease with heart failure; I50.9 Heart failure, unspecified; D64.9 Anemia, unspecified; E78.5 Hyperlipidemia, unspecified; Z93.1 Gastrostomy status; Z93.0 Tracheostomy status; Z85.46 Personal history of malignant neoplasm of prostate; R13.10 Dysphagia, unspecified; Z22.322 Carrier or suspected carrier of Methicillin resistant Staphylococcus aureus; L89.156 Pressure-induced deep tissue damage of sacral region; S31.20XA Unspecified open wound of penis, initial encounter; X58.XXXA Exposure to other specified factors, initial encounter; F09 Unspecified mental disorder due to known physiological condition; I25.10 Atherosclerotic heart disease of native coronary artery without angina pectoris; F03.90 Unspecified dementia, unspecified severity, without behavioral disturbance, psychotic disturbance, mood disturbance, and anxiety; E87.6 Hypokalemia; K44.9 Diaphragmatic hernia without obstruction or gangrene; N18.9 Chronic kidney disease, unspecified; I25.2 Old myocardial infarction
CPT/HCPCS: 31720; 36415; 71045-TC; 74018; 74250-TC; 80048-TC; 80053-TC; 82272-TC; 83735-TC; 84100-TC; 84443-TC; 84484-TC; 85025-TC; 85610-TC; 85730-TC; 86850-TC; 86921-TC; 87081-TC; 88305-TC; 88307-TC; 94003-TC; 94760-TC; 94762-TC; A4216; A4623; A6209; A7526; G0378; J0690; J1170; J1650; J1885; J1953; J2250; J2270; J2704; J3475; J3480; J3490; J7030; J7042; J7060

== ENCOUNTER 2020-02-09 10:08 | Outpatient (CLI) | payer MEDICARE, OTHER ==
[~2020-02-09 10:08] MED LIST changes: -AMLO5TAB9 PO; -ARMO150T2 PO; -BISA-79 GT; -CALC-770 PO; -CRAN425C6 PO; -ENOX40DI SQ; -L. A1CAP11 PO; -LACT-209 GT; -LOSA50TA39 PO; +NUT.237L25; -PIPE3.379 IV; -TRAM50TA2 GT; -ZINC1CAP2 GT
[2020-02-09] MEDS ORDERED: DIATR MEGLU/DIATRIZOATE SODIUM 30 ML BOTTLE (GASTROGRAPHIN) ONE (10:33)
== END 2020-02-09 23:59 | disposition home or self-care (01) ==
LOC: RAD 10:08
PROVIDERS: ATTEND Internal Medicine
DX: Z75.3 Unavailability and inaccessibility of health-care facilities (principal)
CPT/HCPCS: 74018; Q9963

== ENCOUNTER 2020-03-13 11:31 | Inpatient (IN) | payer MEDICARE, OTHER ==
[~2020-03-13] VITALS: Ht 170.2 cm; Wt 64.9 kg
[2020-03-13] VITALS (27 sets, daily range): BP systolic 72–125; BP diastolic 32–66
--- NOTE | 2020-03-13 11:32 | NUR ---
SENT FROM SUB ACUTE C/O VOMITING, LOW BP AND MORE ALTEREDSTARTED 30MINS ROLL FORMING SUPERVISOR, TO ER BED 8, HOOKED TO PROFESSIONAL SERVICES CONSULTANT AND POX, WARM BLANKET PROVIDED, PATIENT W TRACHEOSTOMY, ON COOL AEROSOL, NOTED W G-TUBE, WEISS CATHETER AND MICHELE PICC LINE, PATENT AND FLUSHING WELL. DR ROB AT BEDSIDE
[2020-03-13 12:26] LABS: BASOPHILS % (AUTO) 0.2 % (0.0-2.0); EOSINOPHILS % (AUTO) 0.3 % (0.0-6.0); HEMATOCRIT 32 % (39-51); HEMOGLOBIN 10.4 g/dL (13.5-17.5); LYMPHOCYTES # (AUTO) 0.2 /CMM (0.8-4.8); LYMPHOCYTES % (AUTO) 2.9 % (20.0-44.0); MEAN CORPUSCULAR HGB CONC 33 g/dl (31.0-36.0); MEAN CORPUSCULAR VOLUME 83 fL (80-96); MONOCYTES % (AUTO) 0.5 % (2.0-12.0); NEUTROPHILS # (AUTO) 5.7 /CMM (1.8-8.9); NEUTROPHILS % (AUTO) 96.1 % (43.0-81.0); PLATELET COUNT (AUTO) 161 /CMM (150-450); RED BLOOD CELL COUNT(AUTO) 3.85 MIL/uL (4.5-6.0); WHITE BLOOD COUNT (AUTO) 5.9 K/uL (4.3-11.0)
[2020-03-13] MEDS ORDERED: VANCOMYCIN 1 GM in IV D5W 250 ML IV ONE (12:30)
[2020-03-13] MEDS ORDERED: IV NS 0.9% 1,000 ML BAG IV ONE (12:30)
[2020-03-13] MEDS ORDERED: PIPERACILLIN /TAZOBACTAM 3.375 G in IV D5W 50 ML IV ONE (12:30)
[2020-03-13 12:41] LABS: CALCIUM, SERUM 8.3 mg/dL (8.5-10.1); CARBON DIOXIDE 24 mmol/L (21-32); CHLORIDE 100 mmol/L (98-107); CREATININE 1.5 mg/dL (0.6-1.3); GLUCOSE 140 mg/dL (74-106); POTASSIUM 3.8 mmol/L (3.5-5.1); SODIUM SERUM 136 mmol/L (136-145); UREA NITROGEN, BLOOD 28 mg/dL (7-18)
--- NOTE | 2020-03-13 12:45 | NUR ---
CALLED NURSING SUP FOR TELE BED.
[2020-03-13 12:47] LABS: ALANINE AMINOTRANSFERASE 48 U/L (12-78); ALBUMIN 2.6 g/dL (3.4-5.0); ALKALINE PHOSPHATASE 148 U/L (46-116); ASPARTATE AMINOTRANSFERASE 54 U/L (15-37); BILIRUBIN,DIRECT 0.4 mg/dL (0.0-0.2); BILIRUBIN,TOTAL 0.6 mg/dL (0.2-1.0); TOTAL PROTEIN, SERUM 6.7 g/dL (6.4-8.2)
[2020-03-13] MEDS ORDERED: LACT-209 GT (13:09)
[2020-03-13] MEDS ORDERED: GLYC2TAB21 GT (13:09)
--- NOTE | 2020-03-13 13:21 | NUR ---
ENDORSEMENT GIVEN TO BLANQUITA GAMEZ FOR LUIS FERNANDO
--- NOTE | 2020-03-13 13:22 | NUR ---
NURSING SUP GAVE TELE BED 104.
[2020-03-13 13:33] LABS: APPEARANCE,URINE Slightly Cloudy (CLEAR); BILIRUBIN,URINE MODERATE (NEGATIVE); BLOOD, URINE Large Ery/uL (NEGATIVE); COLOR,URINE Red (YELLOW); KETONES,URINE Trace (NEGATIVE); LEUKOCYTE ESTERASE ,URINE Large (NEGATIVE); NITRITE, URINE Negative (NEGATIVE); PH,URINE 5.5 (5.0-8.0); PROTEIN,URINE >=300 mg/dl (NEGATIVE); UGLUCOSE Negative (NEGATIVE)
[2020-03-13 13:36] LABS: WBC,URINE 21-50 /HPF (0-3)
[2020-03-13 13:37] LABS: BACTERIA,URINE Moderate /HPF (None Seen); SQUAMOUS EPITHELIAL CELL,UR Few /HPF (None Seen)
--- NOTE | 2020-03-13 13:49 | NUR ---
REPORT GIVEN TO GALLO GAMEZ OF TELE UNIT
--- NOTE | 2020-03-13 14:22 | NUR ---
PAGED [facility].
--- NOTE | 2020-03-13 14:40 | NUR ---
DR. DANIEL @ BS FOR EVAL.
[2020-03-13] MEDS ORDERED: ACETAMINOPHEN 325 MG TABLET PO PRN (15:00)
[2020-03-13] MEDS ORDERED: HYDROCODONE/APAP 5/325MG TABLET PO PRN (15:00)
[2020-03-13] MEDS ORDERED: Z GUARD REMEDY 2 OZ OINT TP PRN (15:00)
[2020-03-13] MEDS ORDERED: NOREPINEPHRINE 8 MG in IV NS 0.9% 242 ML IV PRN ×2 (15:00→17:30)
[2020-03-13] MEDS ORDERED: ONDANSETRON HCL/PF 4 MG/2 ML VIAL IVP PRN (15:00)
[2020-03-13] MEDS ORDERED: MAGNESIUM HYDROXIDE 30 ML UDC PO PRN (15:00)
[2020-03-13] MEDS ORDERED: MAG HYDROX/AL HYDROX/SIMETH 30 ML UDC PO PRN (15:00)
[2020-03-13] MEDS ORDERED: IV NS 0.9% 500 ML BAG IV ONE (15:00)
[2020-03-13] MEDS ORDERED: ZOLPIDEM TARTRATE 5 MG TABLET PO PRN (15:00)
[2020-03-13] MEDS ORDERED: FEE PK DOSING 1 MIN EA MC ONE (15:48)
--- NOTE | 2020-03-13 16:15 | NUR ---
REPORT GIVEN TO FRANCO MEJÍA FOR LUIS FERNANDO
[2020-03-13] MEDS: NOREPINEPHRINE 8 MG in IV D5W 242 ML IV PRN ×2 (17:47→22:19)
[2020-03-13] MEDS: IV NS 0.9% 1,000 ML IV PRN (17:47)
[2020-03-13] MEDS: PIPERACILLIN /TAZOBACTAM 3.375 G in IV D5W 100 ML IV SCH (17:53)
[2020-03-13] MEDS ORDERED: ACETAMINOPHEN 650 MG/20.3 ML UDC PEG PRN (18:00)
--- NOTE | 2020-03-13 19:30 | NUR ---
PT ARRIVED IN ICU AT 1645 FROM ER. TEMP 104.0 AX. ICE PACKS AND TYLENOL GIVEN PER MD ORDERS. 1 BM NOTED ON ADMISSION. PICTURES TAKEN OF CLEMENTINA HEEL, REDNESS NOTED AND HEALING STAGE 3 ON COCCYX AREA. HEMATURIA NOTED FROM WEISS CATHETER. LEVOPHED GTT STARTED PER MD ORDERS. PT CHECKED ON HOURLY AND PRN BY NURSING STAFF.
--- NOTE | 2020-03-13 19:31 | NUR ---
BUILDING SERVICES COORDINATOR NOTES RECEIVED PATIENT IN BED NON VERBAL. ON MECHANICAL VENT SETTING TOLERATING WELL ORDERED. NO SOB NOTED, SATURATING WELL 100% AT THIS TIME. TELE MONITOR READING SR IN 80'S. MICHELE TRIPLE LUMEN PICC LINE PATENT INTACT FLUID AND LEVO RUNNING WELL. F/C INTACT URINE RUNNING WELL TO GRAVITY. ABD SOFT AND NON DISTENDED. SKIN WARM AND DRY TO TOUCH. SAFETY MEASURES IN PLACE, BED IN LOW AND LOCKED POSITION. CALL LIGHT WITHIN REACH. WILL CONT TO MONITOR.
--- NOTE | 2020-03-13 19:51 | NUR ---
RT NOTE PT RECEIVED TRACHED ON MECHANICAL VENTILATION. SHILEY [address] TRACH IN [address] ELIDAU BAG @ HOB. SX DONE, TRACH SECURED AND PATENT. ALARMS ON AND AUDIBLE. NO DISTRESS NOTED AT THIS TIME. WILL CONTINUE TO MONITOR. Addendum: 03/13/20 at 1951 by MERCEDES SALGUERO RT Amended: Links added.
[2020-03-14] VITALS (83 sets, daily range): BP systolic 66–141; BP diastolic 37–117
[2020-03-14] MEDS: PIPERACILLIN /TAZOBACTAM 3.375 G in IV D5W 100 ML IV SCH ×2 (00:01→06:00)
[2020-03-14] MEDS ORDERED: NOREPINEPHRINE 8MG/250ML RTU 250 ML IV ONE ×2 (01:15→04:05)
[2020-03-14] MEDS: NOREPINEPHRINE 8 MG in IV D5W 242 ML IV PRN ×3 (01:23→07:32)
[2020-03-14 04:08] LABS: BASOPHILS % (AUTO) 0.1 % (0.0-2.0); HEMATOCRIT 27 % (39-51); HEMOGLOBIN 8.8 g/dL (13.5-17.5); LYMPHOCYTES # (AUTO) 0.5 /CMM (0.8-4.8); LYMPHOCYTES % (AUTO) 1.4 % (20.0-44.0); MEAN CORPUSCULAR HGB CONC 32 g/dl (31.0-36.0); MEAN CORPUSCULAR VOLUME 83 fL (80-96); MONOCYTES # (AUTO) 1.8 /CMM (0.1-1.30); MONOCYTES % (AUTO) 4.6 % (2.0-12.0); NEUTROPHILS % (AUTO) 93.9 % (43.0-81.0); PLATELET COUNT (AUTO) 158 /CMM (150-450); RED BLOOD CELL COUNT(AUTO) 3.26 MIL/uL (4.5-6.0)
[2020-03-14 04:18] LABS: CALCIUM, SERUM 7.9 mg/dL (8.5-10.1); CARBON DIOXIDE 22 mmol/L (21-32); CHLORIDE 96 mmol/L (98-107); CREATININE 2.1 mg/dL (0.6-1.3); GLUCOSE 259 mg/dL (74-106); MAGNESIUM 1.5 mg/dL (1.8-2.4); POTASSIUM 4.2 mmol/L (3.5-5.1); SODIUM SERUM 132 mmol/L (136-145); UREA NITROGEN, BLOOD 36 mg/dL (7-18)
[2020-03-14 04:24] LABS: THYROID STIMULATING HORMONE 0.814 uIU/mL (0.358-3.74)
[2020-03-14 04:57] LABS: WHITE BLOOD COUNT (AUTO) 39.4 K/uL (4.3-11.0)
[2020-03-14 05:11] LABS: BAND % (MANUAL) 12 % (0.0-5.0); LYMPHOCYTES % (MANUAL) 0 % (16-48); MONOCYTES % (MANUAL) 5 % (0-11.0); NEUTROPHILS % (MANUAL) 83 (42-76)
[2020-03-14] MEDS ORDERED: VANCOMYCIN 0.75 GM in IV D5W 250 ML IV SCH ×4 (07:00)
--- NOTE | 2020-03-14 07:02 | NUR ---
DITCH INSPECTOR NOTES PATIENT REMAINED STABLE THROUGH OUT THE SHIFT. VITAL SIGNS REMAINED WNL. NO S/S OF ACUTE DISTRESS NOTED. MICHELE IV PICC LINE PATENT INTACT FLUID AND LEVO RUNNING WELL. F/C INTACT URINE RUNNING WELL TO GRAVITY. ABD SOFT AND NON DISTENDED. SKIN WARM AND DRY TO TOUCH. SAFETY MEASURES IN PLACE, BED IN LOW AND LOCKED POSITION. CALL LIGHT WITHIN REACH. WILL ENDORSE TO AM SHIFT.
--- NOTE | 2020-03-14 07:20 | NUR ---
RECEIVED LAB RESULTS WBC 39.4 FROM 5.9 AT 0557, BLOOD CULTURE GRAM NEGATIVE RODS PAGE DR MG AGUERO X4. AWAITING FOR CALL BACK. PAGED DR. NARAYAN AWAITING FOR CALL ENDORSE TO DAY SHIFT TO FOLLOW UP.
[2020-03-14 08:33] LABS: ABG BASE EXCESS -3.2 mmol/L; ABG OXYGEN SATURATION 98.7 % (92.0-98.5); ABG PCO2 33.5 mmHg (35.0-45.0); ABG PO2 140.1 mmHg (75.0-100.0); AaDO2 142.6 mmHg; COHb 0.3 % (0.5-1.5); MetHb 0.3 % (0.0-1.5); O2Hb 98.1 % (94.0-97.0); SITE, ABG Left Radial; VENT MODE, BG AC 12 450 45%
--- NOTE | 2020-03-14 09:30 | NUR ---
Please call Radiology at extension [phone] when RT is present and RN is present to transport patient for CT exam.
[2020-03-14] MEDS: PANTOPRAZOLE 40 MG TABLET.DR PO SCH (09:44)
[2020-03-14] MEDS: HYDROCORTISONE SOD SUCCINATE 100 MG/2 ML VIAL IV SCH ×3 (09:45→17:39)
[2020-03-14] MEDS: NOREPINEPHRINE 32 MG in IV NS 0.9% 218 ML IV PRN ×2 (10:47→11:18)
[2020-03-14] MEDS ORDERED: Magnesium 1GM/D5W 100ML PREMIX 100 ML IV SCH (11:00)
[2020-03-14] MEDS ORDERED: ALBUTEROL SULFATE 8 GM HFA.AER.AD IH PRN (13:00)
[2020-03-14] MEDS ORDERED: ALTEPLASE CATHFLO 2 MG/VIAL XX ONE (13:00)
[2020-03-14] MEDS ORDERED: PIPERACILLIN /TAZOBACTAM 3.375 G in IV D5W 100 ML IV SCH (13:00)
[2020-03-14] MEDS: PROSTAT (PYXIS) 30 ML UDC GT SCH ×2 (13:59→21:38)
--- NOTE | 2020-03-14 14:04 | NUR ---
Per FRANCO Huddleston, patient is unstable to come down for CT exam. Patient is pending result from covid test.
[2020-03-14] MEDS: IV NS 0.9% 1,000 ML IV PRN ×2 (15:32→23:38)
--- NOTE | 2020-03-14 19:28 | NUR ---
END OF SHIFT NOTE: PT HAD AN UNEVENTFUL SHIFT. LEVOPHED INFUSING PER MD ORDERS, CURRENTLY INFUSING AT 0.2 MCG/KG/MIN. URINE OUTPUT 1575ML THIS SHIFT. CT ON HOLD TILL COVID TEST RESULTS COME BACK, PER RT PT'S SHOULD NOT BE BAGGED IF COVID POSITIVE, MD'S AWARE. PT CHECKED ON HOURLY AND PRN BY NURSING STAFF.
--- NOTE | 2020-03-14 20:00 | NUR ---
GREEN BUILDING DESIGN SPECIALIST NOTES RECEIVED PATIENT IN BED NON VERBAL. ON MECHANICAL VENT SETTING AC TOLERATED WELL. NO SOB NO DISTRESS NOTED, SATURATING WELL 100% AT THIS TIME. TELE MONITOR READING SR IN 90'S WITH IST DEGREE BLOCK. MICHELE TRIPLE LUMEN PICC LINE PATENT INTACT FLUID AND LEVO RUNNING AT 0.2 MCG /KG/MIN . V/S STABLE AFEBRILE . R/O COVID STILL PENDING RESULT .ALL PRECAUTIONARY MEASURES OBSERVE AT ALL TIMES , DUE MEDS GIVEN ORDERED INCLUDING IV ANTIBIOTIC .ALL NEEDS ANTICIPATED , TURNED AND REPOSITION , WITH IVF OF NS AT 125CC/HR ,PTS STILL ON NPO STATUS EXCEPT MEDS . F/C INTACT DRAINING YELLOWISH URINE OUTPUT . ABD SOFT AND NON DISTENDED. SKIN WARM AND DRY TO TOUCH. SAFETY MEASURES IN PLACE, BED IN LOW AND LOCKED POSITION. CALL LIGHT WITHIN REACH. WILL CONT TO MONITOR.
[2020-03-14] MEDS ORDERED: MEROPENEM 1 G in IV NS 0.9% 100 ML IV SCH (21:00)
[2020-03-14] MEDS: GLYCOPYRROLATE 0.2 MG/ML VIAL GT SCH (21:00)
[2020-03-14] MEDS: LEVETIRACETAM SOL (5 ML) 100 MG/ML UDC GT SCH (21:10)
[2020-03-14] MEDS ORDERED: MUPIROCIN OINT 2% 22 GM TUBE ONE (21:58)
[2020-03-14] MEDS: MUPIROCIN OINT 2% 22 GM TUBE SCH (22:00)
--- NOTE | 2020-03-14 22:03 | NUR ---
INSOLE STIFFENER NOTES ROBINUL DOSE FOR 9PM NOT ADMINISTERED NOT AVAILABLE FROM [employer] SUPPORT GROUP MANAGER .
[2020-03-14] MEDS: TAMSULOSIN 0.4 MG CAP.SR.24H GT SCH (22:08)
[2020-03-15] VITALS (64 sets, daily range): BP systolic 91–136; BP diastolic 42–89
[2020-03-15 04:01] LABS: BASOPHILS % (AUTO) 0.1 % (0.0-2.0); EOSINOPHILS % (AUTO) 2.6 % (0.0-6.0); HEMATOCRIT 26 % (39-51); HEMOGLOBIN 8.5 g/dL (13.5-17.5); LYMPHOCYTES # (AUTO) 0.3 /CMM (0.8-4.8); LYMPHOCYTES % (AUTO) 1.3 % (20.0-44.0); MEAN CORPUSCULAR HGB CONC 33 g/dl (31.0-36.0); MEAN CORPUSCULAR VOLUME 81 fL (80-96); MONOCYTES # (AUTO) 0.6 /CMM (0.1-1.30); MONOCYTES % (AUTO) 3.2 % (2.0-12.0); NEUTROPHILS # (AUTO) 18.1 /CMM (1.8-8.9); NEUTROPHILS % (AUTO) 92.8 % (43.0-81.0); PLATELET COUNT (AUTO) 145 /CMM (150-450); RED BLOOD CELL COUNT(AUTO) 3.18 MIL/uL (4.5-6.0); WHITE BLOOD COUNT (AUTO) 19.5 K/uL (4.3-11.0)
[2020-03-15 04:11] LABS: CREATINE KINASE, TOTAL 76 U/L (39-308)
[2020-03-15] MEDS: PROSTAT (PYXIS) 30 ML UDC GT SCH ×3 (04:30→22:17)
--- NOTE | 2020-03-15 04:48 | NUR ---
RN/TOMI NESBITT FROM LAB CALLED W/ FINAL RESULT, COVID IS NEGATIVE.
[2020-03-15] MEDS: MEROPENEM 1 G in IV NS 0.9% 100 ML IV SCH ×2 (05:58→18:44)
[2020-03-15] MEDS ORDERED: Medication Not On Formulary EA (Omeprazole 20 MG) GT SCH (06:00)
[2020-03-15 06:16] LABS: ALANINE AMINOTRANSFERASE 38 U/L (12-78); ALKALINE PHOSPHATASE 59 U/L (46-116); ASPARTATE AMINOTRANSFERASE 28 U/L (15-37); BILIRUBIN,TOTAL 0.4 mg/dL (0.2-1.0); CARBON DIOXIDE 22 mmol/L (21-32); CHLORIDE 104 mmol/L (98-107); CREATININE 1.6 mg/dL (0.6-1.3); GLUCOSE 158 mg/dL (74-106); MAGNESIUM 1.9 mg/dL (1.8-2.4); POTASSIUM 3.5 mmol/L (3.5-5.1); SODIUM SERUM 138 mmol/L (136-145); TOTAL PROTEIN, SERUM 6.3 g/dL (6.4-8.2); UREA NITROGEN, BLOOD 28 mg/dL (7-18)
--- NOTE | 2020-03-15 06:31 | NUR ---
manager icu notes pts in bed remain on vent setting ac settings well tolerated ,pts continue on npo status except meds pts for ct abdomen, covid 19 negative result Md greene made aware..continue on levo 0.2mcg/kg/min,raul endorse to rn dy shift for continuity of care.
--- NOTE | 2020-03-15 07:32 | NUR ---
WOUND CARE CONSULT: PT FOLLOWED BY PLASTIC SURGERY TEAM FOR WOUND CARE. DEFER TO SURGICAL TEAM FOR WOUND TREATMENT PLAN. PT IS ON FIRST STEP ISOFLEX LOW AIRLOSS MATTRESS. ALL SKIN PROTECTION RECOMMENDATIONS IN PLACE AND DISCUSSED WITH NURSING STAFF. WILL SEE PRN.
[2020-03-15 07:53] LABS: ABG BASE EXCESS -1.2 mmol/L; ABG OXYGEN SATURATION 98.8 % (92.0-98.5); ABG PCO2 31.4 mmHg (35.0-45.0); ABG PH 7.465 (7.350-7.450); ABG PO2 140.3 mmHg (75.0-100.0); AaDO2 144.8 mmHg; COHb 0.3 % (0.5-1.5); MetHb 0.1 % (0.0-1.5); O2Hb 98.4 % (94.0-97.0); SITE, ABG Right Femoral; VENT MODE, BG AC 12 450 45% +0
[2020-03-15] MEDS: IV NS 0.9% 1,000 ML IV PRN ×2 (07:56→17:23)
[2020-03-15] MEDS ORDERED: VANCOMYCIN 0.75 GM in IV D5W 250 ML IV SCH (08:00)
[2020-03-15] MEDS: GLYCOPYRROLATE 0.2 MG/ML VIAL GT SCH (09:00)
[2020-03-15] MEDS ORDERED: ATORVASTATIN 10 MG TABLET GT SCH (09:00)
[2020-03-15] MEDS: HYDROCORTISONE SOD SUCCINATE 100 MG/2 ML VIAL IV SCH ×2 (09:06→16:26)
[2020-03-15] MEDS: LEVETIRACETAM SOL (5 ML) 100 MG/ML UDC GT SCH ×2 (09:06→21:29)
[2020-03-15] MEDS: MULTIVIT W/MINERALS 1 TAB TABLET GT SCH (09:06)
[2020-03-15] MEDS: ASCORBIC ACID 500 MG TABLET GT SCH (09:07)
[2020-03-15] MEDS: AMIODARONE HCL 200 MG TABLET GT SCH (09:07)
[2020-03-15] MEDS: MUPIROCIN OINT 2% 22 GM TUBE SCH ×2 (09:08→21:29)
[2020-03-15] MEDS: PANTOPRAZOLE 40 MG TABLET.DR PO SCH (09:08)
[2020-03-15] MEDS ORDERED: ALTEPLASE CATHFLO 2 MG/VIAL XX ONE (16:30)
--- NOTE | 2020-03-15 19:15 | NUR ---
RN OPENING NOTES: PATIENT IN BED, NONVERBAL, BUT OPENS EYES SPONTANEOUSLY. ON VENT TRACH, TOLERATING CURRENT SETTINGS WELL, O2 SAT >95%. NO S/S OF PAIN. ON BEDSIDE MONITOR. MICHELE PICC LINE C/D/I, FLUSHING WELL. ON NS AT 125 MLS/HR, TOLERATING WELL. SAFETY PRECAUTIONS IMPLEMENTED. BED LOCKED AND IN LOW POSITION. BILATERAL UPPER SIDE RAILS UP. HOB ELEVATED AT 30 DEGREES. WILL CONT. TO MONITOR.
--- NOTE | 2020-03-15 19:25 | NUR ---
END OF SHIFT NOTE: PT HAD AN UNEVENTFUL SHIFT. LEVOPHED GTT OFF AT 1113 TODAY. PT MORE ALERT THAN PREVIOUS SHIFT. FOLLOWING SOME COMMANDS. SPUTUM AND URINE SENT TO LAB THIS SHIFT. SCD'S APPLIED. CATHFLO USED ON WHITE PORT OF PICC SUCCESSFULLY THIS SHIFT. PT TAKEN TO CT SCAN FROM 10-1015 THIS AM, RESULTS IN COMPUTER. PT CHECKED ON HOURLY AND PRN BY NURSING STAFF.
[2020-03-15 20:47] LABS: APPEARANCE,URINE CLEAR (CLEAR); BILIRUBIN,URINE NEGATIVE (NEGATIVE); BLOOD, URINE MODERATE Ery/uL (NEGATIVE); COLOR,URINE YELLOW (YELLOW); KETONES,URINE NEGATIVE (NEGATIVE); LEUKOCYTE ESTERASE ,URINE TRACE (NEGATIVE); NITRITE, URINE NEGATIVE (NEGATIVE); PROTEIN,URINE 30 mg/dl (NEGATIVE); UGLUCOSE NEGATIVE (NEGATIVE); UROBILINOGEN,URINE 0.2 EU/dL (0.2)
[2020-03-15 21:01] LABS: BACTERIA,URINE Few /HPF (None Seen); COARSE GRANULAR CASTS,URINE Few /LPF (None Seen); SQUAMOUS EPITHELIAL CELL,UR Few /HPF (None Seen); YEAST,URINE Few /HPF (None Seen)
[2020-03-15 21:02] LABS: EOSINOPHIL,URINE None Seen
[2020-03-15 21:28] LABS: CREATININE, URINE 72.9 MG/DL (30.0-125.0); URINE TOTAL PROTEIN 87.1 mg/dL (0-11.9)
[2020-03-15] MEDS: GLYCOPYRROLATE 1 MG TABLET GT SCH (21:29)
[2020-03-15] MEDS: TAMSULOSIN 0.4 MG CAP.SR.24H GT SCH (21:29)
[2020-03-16] VITALS (20 sets, daily range): BP systolic 97–151; BP diastolic 56–87
[2020-03-16] MEDS: VANCOMYCIN 0.75 GM in IV D5W 250 ML IV SCH ×2 (01:39→19:30)
[2020-03-16] MEDS: IV NS 0.9% 1,000 ML IV PRN ×2 (01:39→09:54)
[2020-03-16] MEDS: PROSTAT (PYXIS) 30 ML UDC GT SCH (04:51)
[2020-03-16 05:19] LABS: CALCIUM, SERUM 7.7 mg/dL (8.5-10.1); CREATININE 1.1 mg/dL (0.6-1.3)
[2020-03-16] MEDS: MEROPENEM 1 G in IV NS 0.9% 100 ML IV SCH ×2 (05:27→18:22)
[2020-03-16 06:20] LABS: BASOPHILS % (AUTO) 0.2 % (0.0-2.0); EOSINOPHILS % (AUTO) 0.6 % (0.0-6.0); HEMATOCRIT 25 % (39-51); HEMOGLOBIN 8.3 g/dL (13.5-17.5); LYMPHOCYTES # (AUTO) 0.5 /CMM (0.8-4.8); LYMPHOCYTES % (AUTO) 3.3 % (20.0-44.0); MEAN CORPUSCULAR HGB CONC 33 g/dl (31.0-36.0); MEAN CORPUSCULAR VOLUME 82 fL (80-96); MONOCYTES # (AUTO) 0.4 /CMM (0.1-1.30); MONOCYTES % (AUTO) 2.6 % (2.0-12.0); NEUTROPHILS # (AUTO) 13.4 /CMM (1.8-8.9); NEUTROPHILS % (AUTO) 93.3 % (43.0-81.0); PLATELET COUNT (AUTO) 113 /CMM (150-450); RED BLOOD CELL COUNT(AUTO) 3.06 MIL/uL (4.5-6.0); WHITE BLOOD COUNT (AUTO) 14.4 K/uL (4.3-11.0)
--- NOTE | 2020-03-16 07:00 | NUR ---
RN CLOSING NOTES: PATIENT NOT IN ANY DISTRESS AT THIS TIME. STABLE CONDITION THROUGHOUT THE SHIFT. RELAYED K+ RESULT 3.0 TO CECILIA MANUFACTURING PRODUCTION MANAGER WITH NEW ORDER KDUR 40 MEQ X 1, STILL UNVERIFIED BY PHARMACY, ENDORSED TO ONCOMING RN FOR CONTINUITY OF CARE.
--- NOTE | 2020-03-16 07:40 | NUR ---
RN OPENING NOTE: RECEIVED PATIENT IN BED THIS MORNING. PATIENT HAS TRACH, NON-VERBAL BUT OPENS EYES SPONTANEOUSLY. TOLERATING VENT SETTINGS WELL, NO SIGNS OF ACUTE RESPIRATORY DISTRESS NOTED. NO SIGNS OF ACUTE DISTRESS NOTED. TELE MONITOR ST IN THE 100S. WEISS IN PLACE, DRAINING CLEAR, YELLOW URINE. MICHELE MIDLINE, C/D/I, FLUSHING WELL, NO SIGNS OF COMPLICATIONS NOTED. SAFETY MEASURES IMPLEMENTED, BED IN LOWEST POSITION, LOCKED, SIDE RAILS UP X2, CALL LIGHT WITHIN REACH. WILL CONTINUE TO MONITOR PATIENT FOR CHANGES.
[2020-03-16] MEDS ORDERED: POTASSIUM CHLORIDE 20 MEQ POWDER PACKET GT ONE (08:00)
[2020-03-16] MEDS: ASCORBIC ACID 500 MG TABLET GT SCH (08:18)
[2020-03-16] MEDS: GLYCOPYRROLATE 1 MG TABLET GT SCH ×2 (08:18→20:30)
[2020-03-16] MEDS: LEVETIRACETAM SOL (5 ML) 100 MG/ML UDC GT SCH ×2 (08:18→20:30)
[2020-03-16] MEDS: MULTIVIT W/MINERALS 1 TAB TABLET GT SCH (08:18)
[2020-03-16] MEDS: PANTOPRAZOLE 40 MG TABLET.DR PO SCH (08:18)
[2020-03-16] MEDS: AMIODARONE HCL 200 MG TABLET GT SCH (08:19)
[2020-03-16] MEDS: MUPIROCIN OINT 2% 22 GM TUBE SCH ×2 (08:19→20:41)
[2020-03-16] MEDS: HYDROCORTISONE SOD SUCCINATE 100 MG/2 ML VIAL IV SCH (08:20)
--- NOTE | 2020-03-16 10:43 | NUR ---
AWAITING SCD DEVICE FROM [facility] D/T CURRENT ONE NOT FUNCTIONING.
--- NOTE | 2020-03-16 10:48 | NUR ---
PER DR DANIEL, RESUME GLUCERNA 1.2, ORDER CARRIED OUT
[2020-03-16] MEDS: GLUCERNA 1.2 1,000 ML BOTTLE NG PRN (11:35)
[2020-03-16] MEDS ORDERED: NEUTRA PHOS 1 POWD.PACKET GT ONE (12:00)
[2020-03-16] MEDS: PROSOURCE / PROSTAT (PYXIS) 30 ML UDC GT SCH ×2 (12:28→20:30)
--- NOTE | 2020-03-16 18:05 | NUR ---
Received patient from ICU. Pt awake , non-verbal , farrah Barajas , adm. to TELE SR with PVC's HR 90'S. MICHELE PICC line with fluids running as ordered, FEEding at rate 20 ml/hr to start (goal 45ml/hr). Patient placed to room 323-1. Will endorse to next shift for LUIS FERNANDO.
--- NOTE | 2020-03-16 18:10 | NUR ---
GAVE BEDSIDE REPORT TO FRANCO DELCID FOR CONTINUATION OF CARE. NO ACUTE DISTRESS NOTED AT TIME OF TRANSFER.
--- NOTE | 2020-03-16 19:30 | NUR ---
RN OPEN NOTES PATIENT IS LAYING IN BED. BED IS IN LOWEST LOCKED POSITION WITH SIDE RAILS UP, SEMI FOWLERS. TOLERATING MECHANICAL VENT WELL, NO SOB/ ACUTE RESPIRATORY DISTRESS NOTED. WEISS CATHETER IN PLACE. APPEARS COMFORTABLE/ NO COMPLAINTS OF PAIN AT THE MOMENT. CALL LIGHT IS WITHIN REACH. WILL CONTINUE TO MONITOR.
[2020-03-16] MEDS: TAMSULOSIN 0.4 MG CAP.SR.24H GT SCH (21:04)
[2020-03-17] VITALS: BP 152/69
[2020-03-17 04:00] VITALS: BP 161/76
[2020-03-17] MEDS: PROSOURCE / PROSTAT (PYXIS) 30 ML UDC GT SCH ×3 (04:16→20:37)
[2020-03-17] MEDS: IV NS 0.9% 1,000 ML IV PRN (04:17)
[2020-03-17] MEDS: MEROPENEM 1 G in IV NS 0.9% 100 ML IV SCH ×2 (05:04→17:09)
--- NOTE | 2020-03-17 06:41 | NUR ---
RN CLOSE NOTES PATIENT IS LAYING IN BED. A/O X1, NONVERBAL, OPENS EYES. ON MECH VENT TOLERATING WELL, NO SOB/ ACUTE RESPIRATORY DISTRESS NOTED. APPEARS COMFORTABLE, NO SIGNS OF PAIN. PICC LINE IN RIGHT UPPER ARM IS PATENT, RUNNING NS @60MLS/HR. RECEIVING GTUBE FEEDING @25 MLS/HR. WEISS CATHETER IN PLACE, 1300 ML OUTPUT. ALL DUE ANTIBIOTICS GIVEN. BED IS IN LOWEST LOCKED POSITION WITH SIDE RAILS UP, SEMI FOWLERS. CALL LIGHT IS WITHIN REACH. WILL ENDORSE TO AM NURSE.
[2020-03-17 07:49] LABS: ALBUMIN 2.1 g/dL (3.4-5.0); BILIRUBIN,TOTAL 0.2 mg/dL (0.2-1.0); CALCIUM, SERUM 8.1 mg/dL (8.5-10.1); CREATININE 1.2 mg/dL (0.6-1.3); MAGNESIUM 1.9 mg/dL (1.8-2.4); PHOSPHORUS 2.2 mg/dL (2.5-4.9)
[2020-03-17] MEDS: PANTOPRAZOLE 40 MG TABLET.DR PO SCH (07:55)
[2020-03-17 08:00] VITALS: BP 130/62
--- NOTE | 2020-03-17 08:00 | NUR ---
RN OPENING NOTES PATIENT IS LAYING IN BED. A/O X1, NONVERBAL, OPENS EYES. ON MECH VENT TOLERATING WELL, NO SOB/ ACUTE RESPIRATORY DISTRESS NOTED. APPEARS COMFORTABLE, NO SIGNS OF PAIN. PICC LINE IN RIGHT UPPER ARM IS PATENT, RUNNING NS @60MLS/HR. RECEIVING GTUBE FEEDING @25 MLS/HR. WEISS CATHETER IN PLACE. BED IS IN LOWEST LOCKED POSITION WITH SIDE RAILS UP, SEMI FOWLERS. CALL LIGHT IS WITHIN REACH. WILL CONTINUE TO MONITOR THE PATIENT.
[2020-03-17 08:14] LABS: POTASSIUM 2.8 mmol/L (3.5-5.1)
--- NOTE | 2020-03-17 08:43 | NUR ---
Potassium of 2.8 reported to
[2020-03-17] MEDS: MULTIVIT W/MINERALS 1 TAB TABLET GT SCH (08:49)
[2020-03-17] MEDS: AMIODARONE HCL 200 MG TABLET GT SCH (08:49)
[2020-03-17] MEDS: LEVETIRACETAM SOL (5 ML) 100 MG/ML UDC GT SCH ×2 (08:49→20:37)
[2020-03-17] MEDS: GLYCOPYRROLATE 1 MG TABLET GT SCH ×2 (08:49→20:37)
[2020-03-17] MEDS: ASCORBIC ACID 500 MG TABLET GT SCH (08:50)
[2020-03-17] MEDS: MUPIROCIN OINT 2% 22 GM TUBE SCH ×2 (08:50→21:02)
[2020-03-17] MEDS ORDERED: HYDROCORTISONE SOD SUCCINATE 100 MG/2 ML VIAL IV SCH (09:00)
--- NOTE | 2020-03-17 09:18 | NUR ---
procalcitonin 6.8 was called to
--- NOTE | 2020-03-17 09:31 | NUR ---
THE DR HAS ORDERED POTASSIUM REPLACEMENT 80 MEQ PO X1
[2020-03-17] MEDS: POTASSIUM CHLORIDE 20 MEQ TAB.PRT.SR PO SCH ×2 (10:05→12:29)
[2020-03-17 12:00] VITALS: BP 128/68
[2020-03-17] MEDS ORDERED: NEUTRA PHOS 1 POWD.PACKET GT ONE (12:30)
[2020-03-17] MEDS: VANCOMYCIN 0.75 GM in IV D5W 250 ML IV SCH (15:05)
[2020-03-17 16:00] VITALS: BP 106/51
--- NOTE | 2020-03-17 18:53 | NUR ---
RN NOTES PATIENT IN BED RESTING COMFORTABLY IN MODERATE HIGH BACK REST. A/O X1, NONVERBAL, OPENS EYES. [facility] TOL[facility]LL, NO SOB/ ACUTE RESPIRATORY DISTRESS NOTED THROUGHOUT THE SHIFT. APPEARS COMFORTABLE, NO SIGNS OF PAIN. PICC LINE IN RIGHT UPPER ARM IS PATENT, RUNNING NS @60MLS/HR. RECEIVING GTUBE FEEDING @30 MLS/HR. WEISS CATHETER IN PLACE. BED IS IN LOWEST LOCKED POSITION WITH SIDE RAILS UP, SEMI FOWLERS. CALL LIGHT IS WITHIN REACH. WILL ENDORSE TO GASOLINE TRUCK OPERATOR NURSE FOR LUIS FERNANDO.
--- NOTE | 2020-03-17 19:30 | NUR ---
RN OPEN NOTES PATIENT IS SLEEPING IN BED. [facility] TOLERATING WELL, NO SOB/ ACUTE RESPIRATORY DISTRESS NOTED. WEISS CATHETER IN PLACE. NO SIGNS OF PAIN AT THE MOMENT. BED IS IN LOWEST LOCKED POSITION WITH SIDE RAILS UP X3, SEMI FOWLERS. CALL LIGHT IS WITHIN REACH. WILL CONTINUE TO MONITOR.
[2020-03-17 20:00] VITALS: BP_SYST 103; BP_DIAS 55; BP_DIAS 58
[2020-03-17] MEDS: TAMSULOSIN 0.4 MG CAP.SR.24H GT SCH (21:01)
[2020-03-18] VITALS: BP 121/62
[2020-03-18 04:00] VITALS: BP 125/54
[2020-03-18] MEDS: PROSOURCE / PROSTAT (PYXIS) 30 ML UDC GT SCH ×3 (05:21→20:27)
[2020-03-18] MEDS: GLUCERNA 1.2 1,000 ML BOTTLE NG PRN (05:21)
[2020-03-18] MEDS: IV NS 0.9% 1,000 ML IV PRN (05:21)
[2020-03-18] MEDS: MEROPENEM 1 G in IV NS 0.9% 100 ML IV SCH (05:23)
--- NOTE | 2020-03-18 06:30 | NUR ---
RN CLOSE NOTES PT IS LAYING IN BED. A/O X1, NONVERBAL, OPENS EYES. ON MECH VENT TOLERATING WELL, NO SOB/ ACUTE RESPIRATORY DISTRESS NOTED. APPEARS COMFORTABLE, SHOWS NO SIGNS OF PAIN. PICC LINE IN RIGHT UPPER ARM IS INTACT, RUNNING NS@ 60MLS/HR. RECEIVING GTUBE FEEDING AT 35 MLS/HR. WEISS CATHETER IN PLACE, 900ML OUTPUT. BED IS IN LOWEST LOCKED POSITION WITH SIDE RAILS UP, SEMI FOWLERS. CALL LIGHT IS WITHIN REACH. WILL ENDORSE TO AM NURSE.
[2020-03-18 07:28] LABS: MAGNESIUM 1.9 mg/dL (1.8-2.4); PHOSPHORUS 3.2 mg/dL (2.5-4.9)
[2020-03-18 07:29] LABS: BASOPHILS % (AUTO) 0.2 % (0.0-2.0); EOSINOPHILS % (AUTO) 1.3 % (0.0-6.0); HEMATOCRIT 24 % (39-51); HEMOGLOBIN 7.8 g/dL (13.5-17.5); LYMPHOCYTES # (AUTO) 0.6 /CMM (0.8-4.8); LYMPHOCYTES % (AUTO) 8.8 % (20.0-44.0); MEAN CORPUSCULAR HGB CONC 33 g/dl (31.0-36.0); MEAN CORPUSCULAR VOLUME 82 fL (80-96); MONOCYTES # (AUTO) 0.5 /CMM (0.1-1.30); MONOCYTES % (AUTO) 7.3 % (2.0-12.0); NEUTROPHILS # (AUTO) 5.7 /CMM (1.8-8.9); NEUTROPHILS % (AUTO) 82.4 % (43.0-81.0); PLATELET COUNT (AUTO) 130 /CMM (150-450); RED BLOOD CELL COUNT(AUTO) 2.91 MIL/uL (4.5-6.0); WHITE BLOOD COUNT (AUTO) 6.9 K/uL (4.3-11.0)
--- NOTE | 2020-03-18 07:30 | NUR ---
MARBLE INSTALLER OPENING NOTES RECEIVED PATIENT SLEEPING IN BED. PATIENT ON MECH VENT TOLERATING WELL, NO SIGNS OF SOB OR ACUTE RESPIRATORY DISTRESS NOTED. WEISS CATHETER IN PLACE. PATIENT RIGHT UPPER ARM PICC IS IN PLACE AND INTACT. NO SIGNS OF PAIN AT THE MOMENT. SAFETY MEASURES IN PLACE, BED IS IN LOWEST LOCKED POSITION WITH SIDE RAILS UP X3, SEMI FOWLERS. CALL LIGHT IS WITHIN REACH. WILL CONTINUE TO MONITOR PATIENT THROUGH OUT SHIFT.
[2020-03-18 07:42] LABS: POTASSIUM 2.8 mmol/L (3.5-5.1)
[2020-03-18 08:00] VITALS: BP 122/60
[2020-03-18 09:14] LABS: BAND % (MANUAL) 2 % (0.0-5.0); LYMPHOCYTES % (MANUAL) 11 % (16-48); METAMYELOCYTES % 1 % (0-0); MONOCYTES % (MANUAL) 11 % (0-11.0); MYELOCYTES % 1 % (0-0); NEUTROPHILS % (MANUAL) 74 (42-76)
[2020-03-18] MEDS: GLYCOPYRROLATE 1 MG TABLET GT SCH ×2 (09:24→20:26)
[2020-03-18] MEDS: LEVETIRACETAM SOL (5 ML) 100 MG/ML UDC GT SCH ×2 (09:24→20:25)
[2020-03-18] MEDS: POTASSIUM CHLORIDE 20 MEQ POWDER PACKET NG SCH ×8 (09:25→14:56)
[2020-03-18] MEDS: ASCORBIC ACID 500 MG TABLET GT SCH (09:25)
[2020-03-18] MEDS: MULTIVIT W/MINERALS 1 TAB TABLET GT SCH (09:25)
[2020-03-18] MEDS: PANTOPRAZOLE 40 MG TABLET.DR PO SCH (09:26)
[2020-03-18] MEDS: AMIODARONE HCL 200 MG TABLET GT SCH (09:26)
[2020-03-18] MEDS: VANCOMYCIN 0.75 GM in IV D5W 250 ML IV SCH (09:33)
[2020-03-18] MEDS: MUPIROCIN OINT 2% 22 GM TUBE SCH ×2 (10:00→20:31)
[2020-03-18 12:00] VITALS: BP 129/66
--- NOTE | 2020-03-18 12:48 | NUR ---
TELE/ RN NOTES NOTED PATIENT HAS ANOTHER ORDER OF KLOR CON TOTAL OF 60MEQ ORDERED UNDER DR DANIEL. THE PATIENT IS ALREADY GETTING A TOTAL OF [address] DANIEL IS MADE AWARE TO VERIFY ORDER AND PER DR DANIEL NOT TO GIVE LAST ORDER OF KLOR CON 60 MEQ.
[2020-03-18 16:00] VITALS: BP 137/61
[2020-03-18] MEDS ORDERED: CEFTRIAXONE 2 G in IV D5W 100 ML IV SCH (17:30)
--- NOTE | 2020-03-18 18:31 | NUR ---
DRIVE IN WAITER/WAITRESS/ CLOSING NOTES PATIENT IS LAYING IN BED, AWAKE ALERT AND ORIENTED X1, NONVERBAL, OPENS EYES. ON [facility] VENT TOLERATING WELL, NO SOB OR ACUTE RESPIRATORY DISTRESS NOTED. APPEARS COMFORTABLE, SHOWS NO SIGNS OF PAIN. PICC LINE IN RIGHT UPPER ARM IS INTACT SALINE LOCK. RECEIVING G-TUBE FEEDING AT 45 MLS/HR. WEISS CATHETER IS IN PLACE. SAFETY MEASURES IN PLACE, BED IS IN LOWEST LOCKED POSITION WITH SIDE RAILS UP X 3, SEMI FOWLERS. CALL LIGHT IS WITHIN REACH. WILL ENDORSE CARE TO EVP HEAD OF [employer] EXPERIENCE STRATEGY NURSE. Addendum: 03/18/20 at 1838 by THAIS RICHARDS RN TELE/ RN CLOSING NOTES EXTERNAL TELE MONITOR READING 65 SINUS RHYME.
--- NOTE | 2020-03-18 18:45 | NUR ---
TELE/RN NOTE RECEIVED NEW ORDER FROM DR DANIEL FOR GLUCERNA 1.2 AT 45ML/HR X 24 HR. THE ORDER IS READ BACK, VERIFIED. NOTED AND CARRIED OUT.
--- NOTE | 2020-03-18 18:46 | NUR ---
TELE/RN NOTE ROCEPHIN 2GM IS DUE AT 1730 IS OT ADMINISTERED YET BECAUSE THE PHARMACY HAS NOT DELIVERED THE MEDIATION YET. FOLLOW-UP CALL WITH PHARMACY IS MADE. WILL ADMINISTER SOON THE MEDICATION IS DELIVERED.
[2020-03-18] MEDS ORDERED: GLUCERNA 1.2 1,000 ML BOTTLE GT PRN (19:00)
--- NOTE | 2020-03-18 19:17 | NUR ---
TELE/RN NOTE ROCEPHIN 2GM IS DUE AT 1730 IS OT ADMINISTERED YET BECAUSE THE PHARMACY HAS NOT DELIVERED THE MEDIATION YET. FOLLOW-UP CALLS WITH PHARMACY WERE MADE. TOOL PLANER SET UP OPERATOR IS ENDORSED TO FOLLOW-UP WITH PHARMACY AND ADMINISTER THE MEDICATIONS.
--- NOTE | 2020-03-18 19:30 | NUR ---
RN NOTES RECEIVED PATIENT IN BED OBTUNDED NON VERBAL OPEN HIS EYES. BREATHING NORMAL NO SOB NOTED, RESPIRATION EVEN NON LABORED. CONTINUES ON VENT SETTING TOLERATING WELL ORDERED. NO S/S OF PAIN OR DISTRESS NOTED. MICHELE PICC LINE PATENT INTACT. GTF TOLERATING WELL NO RESIDUAL NOTED. F/C INTACT URINE DARNING WELL TO GRAVITY. SAFETY MEASURES IN PLACE, BED IN LOW AND LOCKED POSITION. CALL LIGHT WITHIN REACH. WILL CONT TO MONITOR.
[2020-03-18 20:00] VITALS: BP 138/71
[2020-03-18] MEDS ORDERED: LEVOFLOXACIN 500 MG /D5W 100ML 500 MG in PREMIX 1 EA IV SCH (20:00)
[2020-03-18] MEDS: TAMSULOSIN 0.4 MG CAP.SR.24H GT SCH (21:12)
--- NOTE | 2020-03-19 02:25 | NUR ---
RT NOTE Pt rec'd trached on [facility] vent on AC mode. Pt showed no signs of resp distress.Trach is patent and secured. Pt sx'd for thick mod amt of pale yellow secretions. Alarms are set and audible. Ambu bag bedside. Vent plugged into red outlet. Will continue to monitor. Addendum: 03/19/20 at 0225 by BERNY VILLAGOMEZ RT Amended: Links added.
[2020-03-19] MEDS: PROSOURCE / PROSTAT (PYXIS) 30 ML UDC GT SCH ×2 (04:40→13:04)
[2020-03-19 07:25] LABS: BASOPHILS % (AUTO) 0.2 % (0.0-2.0); EOSINOPHILS % (AUTO) 3.3 % (0.0-6.0); HEMATOCRIT 27 % (39-51); HEMOGLOBIN 8.8 g/dL (13.5-17.5); LYMPHOCYTES # (AUTO) 0.6 /CMM (0.8-4.8); LYMPHOCYTES % (AUTO) 7.2 % (20.0-44.0); MEAN CORPUSCULAR HGB CONC 33 g/dl (31.0-36.0); MEAN CORPUSCULAR VOLUME 83 fL (80-96); MONOCYTES # (AUTO) 0.5 /CMM (0.1-1.30); MONOCYTES % (AUTO) 6.4 % (2.0-12.0); NEUTROPHILS # (AUTO) 7.1 /CMM (1.8-8.9); NEUTROPHILS % (AUTO) 82.9 % (43.0-81.0); PLATELET COUNT (AUTO) 163 /CMM (150-450); RED BLOOD CELL COUNT(AUTO) 3.22 MIL/uL (4.5-6.0); WHITE BLOOD COUNT (AUTO) 8.6 K/uL (4.3-11.0)
--- NOTE | 2020-03-19 07:30 | NUR ---
SWING RIDE OPERATOR OPENING NOTES RECEIVED PATIENT RESTING IN BED. PATIENT ON MECH VENT TOLERATING WELL, NO SIGNS OF SOB OR ACUTE RESPIRATORY DISTRESS NOTED. TELE MONITOR READING SR 69. WEISS CATHETER IN PLACE. PATIENT RIGHT UPPER ARM PICC IS IN PLACE AND INTACT. NO SIGNS OF PAIN AT THE MOMENT. SAFETY MEASURES IN PLACE, BED IS IN LOWEST LOCKED POSITION WITH SIDE RAILS UP X3, SEMI FOWLERS. CALL LIGHT IS WITHIN REACH. WILL CONTINUE TO MONITOR PATIENT THROUGH OUT SHIT
[2020-03-19 07:42] LABS: CALCIUM, SERUM 8.2 mg/dL (8.5-10.1); MAGNESIUM 1.9 mg/dL (1.8-2.4); PHOSPHORUS 3.3 mg/dL (2.5-4.9); POTASSIUM 3.5 mmol/L (3.5-5.1)
[2020-03-19 08:00] VITALS: BP 140/68
[2020-03-19] MEDS: PANTOPRAZOLE 40 MG TABLET.DR PO SCH (08:55)
[2020-03-19] MEDS: GLYCOPYRROLATE 1 MG TABLET GT SCH (08:55)
[2020-03-19] MEDS: LEVETIRACETAM SOL (5 ML) 100 MG/ML UDC GT SCH (08:55)
[2020-03-19] MEDS: ASCORBIC ACID 500 MG TABLET GT SCH (08:55)
[2020-03-19 08:59] VITALS: BP 140/68
[2020-03-19] MEDS: AMIODARONE HCL 200 MG TABLET GT SCH (08:59)
[2020-03-19] MEDS: MULTIVIT W/MINERALS 1 TAB TABLET GT SCH (08:59)
[2020-03-19] MEDS: MUPIROCIN OINT 2% 22 GM TUBE SCH (09:00)
[2020-03-19 11:10] LABS: BAND % (MANUAL) 3 % (0.0-5.0); EOSINOPHILS % (MANUAL) 5 % (0-4); LYMPHOCYTES % (MANUAL) 5 % (16-48); METAMYELOCYTES % 2 % (0-0); MONOCYTES % (MANUAL) 8 % (0-11.0); MYELOCYTES % 1 % (0-0); NEUTROPHILS % (MANUAL) 76 (42-76)
[2020-03-19] MEDS: FUROSEMIDE 100 MG/10 ML VIAL IV SCH ×2 (11:15→15:24)
[2020-03-19] MEDS: POTASSIUM CHLORIDE 20 MEQ POWDER PACKET GT SCH ×3 (11:15→13:05)
--- NOTE | 2020-03-19 13:25 | NUR ---
RT NOTE PT RCVD TRACH'D ON MECHANICAL VENT WITH CHARTED SETTINGS. SX DONE. PT TRACH IS PATENT AND SECURE. VENT PLUGGED INTO RED OUTLET. VENT ALARMS ARE ON AND AUDIBLE. AMBU BAG AT BED SIDE. NO SOB NOTED. Addendum: 03/19/20 at 1325 by NOVA GONZALEZ RT Amended: Links added.
--- NOTE | 2020-03-19 17:10 | NUR ---
TELE/RN NOTE THE IS TRANSFERRED TO [facility] SUBACUTE UNIT IN STABLE CONDITION PER ACLS PROTOCOL. REPORT GIVEN TO NURSE LUCIA.
[2020-04-30] MEDS ORDERED: CEFE2FRO IV (07:20)
== END 2020-03-19 17:30 | DRG 870 ==
LOC: ER 11:36 → TELE-TD 15:17 → ICU 16:53 → TELE 03-16 18:00 → MED 03-19 17:10
PROVIDERS: ADMIT Student in an Organized Health Care Education/Training Program; ATTEND Internal Medicine
PROC: 5A1955Z Respiratory Ventilation, Greater than 96 Consecutive Hours (ICD-10-PCS; principal; 2020-03-13)
PROC: 02HV33Z Insertion of Infusion Device into Superior Vena Cava, Percutaneous Approach (ICD-10-PCS; 2020-03-14)
DX: A41.51 Sepsis due to Escherichia coli [E. coli] (principal); L89.153 Pressure ulcer of sacral region, stage 3; G93.41 Metabolic encephalopathy; E43 Unspecified severe protein-calorie malnutrition; R65.21 Severe sepsis with septic shock; J18.9 Pneumonia, unspecified organism; I21.A1 Myocardial infarction type 2; N17.0 Acute kidney failure with tubular necrosis; J96.22 Acute and chronic respiratory failure with hypercapnia; J96.21 Acute and chronic respiratory failure with hypoxia; I13.0 Hypertensive heart and chronic kidney disease with heart failure and stage 1 through stage 4 chronic kidney disease, or unspecified chronic kidney disease; E87.1 Hypo-osmolality and hyponatremia; E87.0 Hyperosmolality and hypernatremia; E87.2 Acidosis; N39.0 Urinary tract infection, site not specified; K56.609 Unspecified intestinal obstruction, unspecified as to partial versus complete obstruction; Z16.24 Resistance to multiple antibiotics; N18.9 Chronic kidney disease, unspecified; E11.22 Type 2 diabetes mellitus with diabetic chronic kidney disease; R13.10 Dysphagia, unspecified; Z86.73 Personal history of transient ischemic attack (TIA), and cerebral infarction without residual deficits; D63.8 Anemia in other chronic diseases classified elsewhere; D69.6 Thrombocytopenia, unspecified; E78.5 Hyperlipidemia, unspecified; E83.42 Hypomagnesemia; E87.6 Hypokalemia; F03.90 Unspecified dementia, unspecified severity, without behavioral disturbance, psychotic disturbance, mood disturbance, and anxiety; I25.2 Old myocardial infarction; I25.10 Atherosclerotic heart disease of native coronary artery without angina pectoris; I48.91 Unspecified atrial fibrillation; N40.0 Benign prostatic hyperplasia without lower urinary tract symptoms; Z79.51 Long term (current) use of inhaled steroids; Z79.899 Other long term (current) drug therapy; K21.9 Gastro-esophageal reflux disease without esophagitis; Z22.322 Carrier or suspected carrier of Methicillin resistant Staphylococcus aureus; K44.9 Diaphragmatic hernia without obstruction or gangrene; S31.20XA Unspecified open wound of penis, initial encounter; X58.XXXA Exposure to other specified factors, initial encounter; Y92.9 Unspecified place or not applicable; L89.156 Pressure-induced deep tissue damage of sacral region; Z85.46 Personal history of malignant neoplasm of prostate; Z86.14 Personal history of Methicillin resistant Staphylococcus aureus infection; Z93.1 Gastrostomy status; G47.419 Narcolepsy without cataplexy; Y95 Nosocomial condition; I50.9 Heart failure, unspecified; I70.0 Atherosclerosis of aorta; K40.90 Unilateral inguinal hernia, without obstruction or gangrene, not specified as recurrent; N20.0 Calculus of kidney; N28.1 Cyst of kidney, acquired
CPT/HCPCS: 31720; 36415; 36600; 71045-TC; 74018; 80048-TC; 80053-TC; 80076-TC; 80202-TC; 81000-TC; 82533; 82550-TC; 82570-TC; 82803-TC; 83605-TC; 83735-TC; 83970; 84100-TC; 84155-TC; 84300-TC; 84443-TC; 84484-TC; 85025-TC; 85730-TC; 87040-TC; 87070-TC; 87081-TC; 87086-TC; 87186-TC; 93307-TC; 94002-TC; 94003-TC; 94760-TC; 94762-TC; 94799-TC; 99082-TC; A4216; A4623; A7526; G0378; J0696; J1720; J1940; J1953; J1956; J2185; J2543; J2997; J3370; J3475; J7030; J7040; J7050; J7060; U0003-CS

== ENCOUNTER 2020-04-27 10:14 | Inpatient (IN) | payer MEDICARE, OTHER ==
[~2020-04-27] VITALS: Ht 170.2 cm; Wt 70.8 kg
[2020-04-27] VITALS (31 sets, daily range): BP systolic 82–136; BP diastolic 47–77
[~2020-04-27 10:14] MED LIST changes: +GLYC2TAB21 GT; +LACT-209 GT; -NUT.237L25
[2020-04-27] MEDS ORDERED: Z GUARD REMEDY 2 OZ OINT TP PRN (10:30)
[2020-04-27] MEDS ORDERED: ZOLPIDEM TARTRATE 5 MG TABLET PO PRN (10:30)
[2020-04-27] MEDS ORDERED: MAG HYDROX/AL HYDROX/SIMETH 30 ML UDC PO PRN (10:30)
[2020-04-27] MEDS ORDERED: ACETAMINOPHEN 325 MG TABLET PO PRN (10:30)
[2020-04-27] MEDS ORDERED: ONDANSETRON HCL/PF 4 MG/2 ML VIAL IVP PRN (10:30)
[2020-04-27] MEDS ORDERED: IV NS 0.9% 1,000 ML IV PRN (10:30)
[2020-04-27] MEDS ORDERED: MAGNESIUM HYDROXIDE 30 ML UDC PO PRN (10:30)
[2020-04-27] MEDS: ENOXAPARIN SODIUM 40 MG/0.4 ML DISP.SYRIN SQ SCH (11:22)
--- NOTE | 2020-04-27 11:30 | NUR ---
RN OPENING NOTES RECEIVED PATIENT FROM SUB ACUTE. A/O X1, RESPONDS TO PERSON. PATIENT HAS A T-PIECE, SHILEY #8, ON COOL AEROSOL SATURATING WELL. NO SIGNS OF RESPIRATORY DISTRESS NOTED. RESPIRATIONS EVEN AND UNLABORED. ON TELE MONITOR WITH SINUS RHYTHM NOTED, HR IN THE 70S. IV ACCESS ON RIGHT HAND #22, INTACT, PATENT, AND FLUSHED WELL. NO SIGNS OF INFILTRATION NOTED. PATIENT ADMITTED FOR HYPOTENSION, BP 75/40, 1L BOLUS NS STARTED. PATIENT HAS A WEISS CATHETER IN PLACE, HEMATURIA NOTED WITH BLOOD CLOTS. MD IS AWARE.URINE CULTURE WILL BE COLLECTED AND SENT TO LAB. MRSA SWAB DONE AND SENT TO LAB. PATIENT SAFETY IS MAINTAINED, CALL LIGHT WITHIN REACH, WILL CONTINUE TO MONITOR CLOSELY.
[2020-04-27 11:42] LABS: BASOPHILS % (AUTO) 0.1 % (0.0-2.0); EOSINOPHILS % (AUTO) 0.2 % (0.0-6.0); HEMATOCRIT 30 % (39-51); HEMOGLOBIN 9.7 g/dL (13.5-17.5); LYMPHOCYTES # (AUTO) 0.4 /CMM (0.8-4.8); LYMPHOCYTES % (AUTO) 2.1 % (20.0-44.0); MEAN CORPUSCULAR HGB CONC 33 g/dl (31.0-36.0); MEAN CORPUSCULAR VOLUME 83 fL (80-96); MONOCYTES # (AUTO) 0.8 /CMM (0.1-1.30); MONOCYTES % (AUTO) 4.3 % (2.0-12.0); NEUTROPHILS # (AUTO) 17.7 /CMM (1.8-8.9); NEUTROPHILS % (AUTO) 93.3 % (43.0-81.0); PLATELET COUNT (AUTO) 190 /CMM (150-450); RED BLOOD CELL COUNT(AUTO) 3.59 MIL/uL (4.5-6.0); WHITE BLOOD COUNT (AUTO) 18.9 K/uL (4.3-11.0)
[2020-04-27 11:52] LABS: ALANINE AMINOTRANSFERASE 30 U/L (12-78); ALBUMIN 2.5 g/dL (3.4-5.0); ALKALINE PHOSPHATASE 67 U/L (46-116); ASPARTATE AMINOTRANSFERASE 20 U/L (15-37); BILIRUBIN,TOTAL 0.5 mg/dL (0.2-1.0); CALCIUM, SERUM 8.6 mg/dL (8.5-10.1); CARBON DIOXIDE 26 mmol/L (21-32); CHLORIDE 99 mmol/L (98-107); CREATININE 1.7 mg/dL (0.6-1.3); GLUCOSE 130 mg/dL (74-106); POTASSIUM 4.2 mmol/L (3.5-5.1); SODIUM SERUM 136 mmol/L (136-145); TOTAL PROTEIN, SERUM 6.7 g/dL (6.4-8.2); UREA NITROGEN, BLOOD 54 mg/dL (7-18)
[2020-04-27] MEDS ORDERED: FEE PK DOSING 1 MIN EA MC ONE (11:52)
[2020-04-27] MEDS ORDERED: VANCOMYCIN 1 GM in IV D5W 250ml IV ONE (12:00)
[2020-04-27] MEDS: PIPERACILLIN /TAZOBACTAM 3.375 G in IV D5W 50 ML IV SCH ×3 (12:25→23:53)
[2020-04-27] MEDS: IV NS 0.9% 1,000 ML IV PRN ×2 (12:33→21:28)
[2020-04-27] MEDS ORDERED: NOREPINEPHRINE 8 MG in IV NS 0.9% 242 ML IV PRN (17:00)
[2020-04-27] MEDS ORDERED: HYDR1SOL MC (17:29)
[2020-04-27] MEDS ORDERED: PIPE4.5F2 IV (17:29)
[2020-04-27] MEDS ORDERED: MAG355OR18 GT (17:29)
[2020-04-27] MEDS ORDERED: ECON15CR2 TP (17:29)
[2020-04-27] MEDS ORDERED: BENZ236L TP (17:29)
[2020-04-27] MEDS: GLUCERNA 1.2 1,000 ML BOTTLE NG PRN (18:05)
[2020-04-27 18:29] LABS: APPEARANCE,URINE SL CLOUDY (CLEAR); BILIRUBIN,URINE SMALL (NEGATIVE); BLOOD, URINE LARGE Ery/uL (NEGATIVE); COLOR,URINE AMBER (YELLOW); KETONES,URINE TRACE (NEGATIVE); LEUKOCYTE ESTERASE ,URINE MODERATE (NEGATIVE); NITRITE, URINE NEGATIVE (NEGATIVE); PH,URINE 5.5 (5.0-8.0); PROTEIN,URINE 100 mg/dl (NEGATIVE); UGLUCOSE NEGATIVE (NEGATIVE); UROBILINOGEN,URINE 0.2 EU/dL (0.2)
[2020-04-27 18:38] LABS: BACTERIA,URINE 2+ /HPF (None Seen); HYALINE CASTS, URINE 0-2 /LPF (None Seen); RBC,URINE TOO NUMEROUS TO COUN /HPF (0-2); SQUAMOUS EPITHELIAL CELL,UR Few /HPF (None Seen); WBC,URINE 21-50 /HPF (0-3)
--- NOTE | 2020-04-27 18:55 | NUR ---
RN CLOSING NOTE PATIENTS BP REMAINED STABLE DURING MY SHIFT. SBP MAINTAINED AT ABOVE 90. ALL VITAL SIGNS REMAINED STABLE. RESPIRATIONS EVEN AND UNLABORED, O2 SATURATION AT 100%. NO SIGNS OF RESPIRATORY DISTRESS NOTED. PATIENT KEPT CLEAN AND DRY. FULL ASSESSMENT CAN BE FOUND ON THE FLOW SHEET. TUBE FEEDING RUNNING ORDERED, PATIENT TOLERATING WELL, NO RESIDUAL NOTED. URINALYSIS AND RESPIRATORY CULTURE SENT TO LAB. MICROBIOLOGY RESULTS RELAYED TO ID. ASKED DR GREEN TO RECONCILE MEDS SINCE PATIENT IS CONSIDERED A NEW ADMISSION. ALL PATIENT NEEDS MET, CALL LIGHT WITHIN REACH, WILL ENDORSE TO PM NURSE FOR CONTINUITY OF CARE.
--- NOTE | 2020-04-27 20:00 | NUR ---
Received patient awake alert talking but garbled.Chronic trach patient on cool aerosol at 28% saturation 98%-99%.No respiratory distress noted.Secretions suctioned PRN.SR 80's.Normotensive. GT feeding in progress.HOB elevated.FC to gravity drainage with cloudy roscoe urine.Turned and repositioned.IVF NS to MICHELE PICC Line.Site intact.Call light at bedside within easy reach.Bed low and locked position with side rails up.Continue monitoring.
--- NOTE | 2020-04-27 22:30 | NUR ---
[place] regarding Procalcitonin =33.54.Dr.Tim Hampton notified no new orders made. Aware patient is on Zosyn and Vancomycin.
[2020-04-28] VITALS (19 sets, daily range): BP systolic 110–165; BP diastolic 57–102
[2020-04-28] MEDS: VANCOMYCIN 1 GM in IV D5W 250ml IV SCH ×2 (04:35→23:36)
[2020-04-28 05:26] LABS: BASOPHILS # (AUTO) 0.1 /CMM (0.0-0.2); BASOPHILS % (AUTO) 1.3 % (0.0-2.0); HEMATOCRIT 28 % (39-51); HEMOGLOBIN 9.2 g/dL (13.5-17.5); LYMPHOCYTES # (AUTO) 0.3 /CMM (0.8-4.8); LYMPHOCYTES % (AUTO) 2.8 % (20.0-44.0); MEAN CORPUSCULAR HGB CONC 33 g/dl (31.0-36.0); MEAN CORPUSCULAR VOLUME 84 fL (80-96); MONOCYTES # (AUTO) 0.4 /CMM (0.1-1.30); MONOCYTES % (AUTO) 3.9 % (2.0-12.0); NEUTROPHILS # (AUTO) 9.6 /CMM (1.8-8.9); PLATELET COUNT (AUTO) 153 /CMM (150-450); RED BLOOD CELL COUNT(AUTO) 3.34 MIL/uL (4.5-6.0); WHITE BLOOD COUNT (AUTO) 10.5 K/uL (4.3-11.0)
[2020-04-28 05:38] LABS: CALCIUM, SERUM 8.1 mg/dL (8.5-10.1); CREATININE 1.2 mg/dL (0.6-1.3); MAGNESIUM 2.1 mg/dL (1.8-2.4); PHOSPHORUS 2.7 mg/dL (2.5-4.9); POTASSIUM 3.8 mmol/L (3.5-5.1)
[2020-04-28] MEDS: PIPERACILLIN /TAZOBACTAM 3.375 G in IV D5W 50 ML IV SCH ×3 (05:54→17:42)
--- NOTE | 2020-04-28 06:15 | NUR ---
Patient resting in no acute distress.SR.VS remains stable all throughout the night.Tolerating gt feeding. Bathed and complete linens changed.Turned and repositioned q 2 hrs.All due medications administered. Will endorse to day shift for LUIS FERNANDO.
--- NOTE | 2020-04-28 07:34 | NUR ---
RN OPENING NOTES RECEIVED PATIENT RESTING IN BED. NO ACUTE EVENTS DURING THE NIGHT. REMAINED IN STABLE CONDITION WITH VITAL SIGNS STABLE. BP MAINTAINED ORDERED, NO PRESSORS HAVE BEEN STARTED SINCE ADMISSION. CHRONIC TRACH PATIENT, T PIECE ON COOL AEROSOL AT 5L 28% FIO2. SATURATION AT 100%, NO ACUTE RESPIRATORY DISTRESS NOTED. RESPIRATIONS EVEN AND UNLABORED. G TUBE IS PATENT AND FLUSHED WELL. FEEDING RUNNING ORDERED, NO RESIDUAL NOTED. WEISS CATHETER IS INTACT, PATENT, AND DRAINING URINE. MICHELE PICC LINE IS INTACT, PATENT, AND FLUSHED WELL. DRESSING IS CLEAN AND DRY. NO SIGNS OF INFECTION NOTED. SAFETY MAINTAINED, CALL LIGHT WITHIN REACH, WILL CONTINUE TO MONITOR CLOSELY.
[2020-04-28] MEDS: IV NS 0.9% 1,000 ML IV PRN ×2 (08:02→20:04)
[2020-04-28] MEDS: ENOXAPARIN SODIUM 40 MG/0.4 ML DISP.SYRIN SQ SCH (08:04)
--- NOTE | 2020-04-28 09:45 | NUR ---
RN NOTE REPORT CALLED AND GIVEN TO BERNY GAMEZ. PATIENT IN STABLE CONDITION FOR TRANSFER. TRANSFERRED PATIENT USING THE ACLS PROTOCOL. NO ACUTE EVENTS DURING TRANSFER. ENDORSED PATIENT TO BERNY GAMEZ FOR LUIS FERNANDO.
[2020-04-28 10:37] LABS: BAND % (MANUAL) 3 % (0.0-5.0); EOSINOPHILS % (MANUAL) 1 % (0-4); LYMPHOCYTES % (MANUAL) 2 % (16-48); MONOCYTES % (MANUAL) 2 % (0-11.0); NEUTROPHILS % (MANUAL) 92 (42-76)
[2020-04-28 15:55] LABS: ABG BASE EXCESS -4.9 mmol/L; ABG OXYGEN SATURATION 97.2 % (92.0-98.5); ABG PCO2 30.8 mmHg (35.0-45.0); ABG PH 7.406 (7.350-7.450); ABG PO2 93.7 mmHg (75.0-100.0); AaDO2 69.6 mmHg; COHb 0.2 % (0.5-1.5); MetHb 0.3 % (0.0-1.5); O2Hb 96.7 % (94.0-97.0); SITE, ABG Right Radial; VENT MODE, BG COOL AERO 5L 28%
--- NOTE | 2020-04-28 18:42 | NUR ---
CHANGE OF SHIFT REPORT PT RESTING COMFORTABLY IN BED. NO S/S OR C/O PAIN OR DISTRESS NOTED. SIDE RAILS UP X2, CALL LIGHT LEFT WITHIN REACH. PT KEPT CLEAN, DRY, AND COMFORTABLE. NO SIGNIFICANT CHANGES SINCE PREVIOUS SHIFT. WILL GIVE REPORT TO JUAN GAMEZ.
--- NOTE | 2020-04-28 19:30 | NUR ---
RESIDENT HALL DIRECTOR OPENING NOTES PATIENT AWAKE IN BED. A/OX1. CHRONIC TRACH PATIENT; T PIECE ON COOL AEROSOL AT 5L; NO S/S OF ACUTE RESPIRATORY DISTRESS; BREATHING IS EVEN AND UNLABORED. TELE MONITOR READING A-FIB, HEART RATE 86. GTUBE PRESENT WITH GLUCERNA 1.2 RUNNING AT 60 ML/HR; TOLERATING WELL. WEISS CATHETER PRESENT AND DRAINING WELL. RIGHT UPPER ARM PICC LINE PRESENT WITH NS RUNNING AT 100 ML/HR. SAFETY MEASURES IN PLACE AND PATIENT'S NEEDS MET. BED LOCKED, ALARM ON, SIDE RAILS X3, SPECIAL AIR MATTRESS IN PLACE, CALL LIGHT WITHIN REACH. WILL CONTINUE TO MONITOR.
[2020-04-29] VITALS: BP 156/80
[2020-04-29] MEDS: PIPERACILLIN /TAZOBACTAM 3.375 G in IV D5W 50 ML IV SCH ×4 (00:43→18:46)
[2020-04-29] MEDS: GLUCERNA 1.2 1,000 ML BOTTLE NG PRN ×2 (01:04→21:51)
[2020-04-29 04:00] VITALS: BP 151/78
[2020-04-29 04:01] VITALS: BP 151/83
[2020-04-29] MEDS: IV NS 0.9% 500 ML IV ONE ×2 (05:30→05:42)
--- NOTE | 2020-04-29 07:40 | NUR ---
OVERLOCK COLLAR SETTER CLOSING NOTES PATIENT AWAKE IN BED. A/OX1. CHRONIC TRACH PATIENT; T PIECE ON COOL AEROSOL AT 5L; NO S/S OF DISTRESS NOTED. TELE MONITOR READING NSR WITH OCCASIONAL BIGEMINY, HEART RATE 80. GTUBE PRESENT WITH GLUCERNA 1.2 RUNNING AT 60 ML/HR. WEISS CATHETER PRESENT AND DRAINING WELL; 1800 ML EMPTIED. RIGHT UPPER ARM PICC LINE PRESENT WITH NS RUNNING AT 100 ML/HR. SAFETY MEASURES IN PLACE AND PATIENT'S NEEDS MET. BED LOCKED, ALARM ON, SIDE RAILS X3, SPECIAL AIR MATTRESS IN PLACE, CALL LIGHT WITHIN REACH. WILL ENDORSE TO DAY SHIFT NURSE PLAN OF CARE.
[2020-04-29 08:00] VITALS: BP 158/77
--- NOTE | 2020-04-29 08:00 | NUR ---
MS GAMEZ NOTES PATIENT IN BED RES Addendum: 04/29/20 at 0925 by JOSE LOYA RN BOOTH CLEANER NOTES PATIENT IN BED RESTING NO SOB OR ACUTE DISTRESS NOTED. PATIENT WITH TRACH ON 5L COOL AEROSOL. SAFETY PRECAUTIONS IN PLACE. WITH PICC LINE INTACT PATENT. ABHISHEK INTACT AND PATENT. WILL CONTINUE TO MONITOR.
[2020-04-29] MEDS: ENOXAPARIN SODIUM 40 MG/0.4 ML DISP.SYRIN SQ SCH (08:41)
[2020-04-29] MEDS: IV NS 0.9% 1,000 ML IV PRN (12:27)
[2020-04-29 15:58] LABS: CALCIUM, SERUM 8.1 mg/dL (8.5-10.1); CREATININE 0.9 mg/dL (0.6-1.3); POTASSIUM 3.3 mmol/L (3.5-5.1)
[2020-04-29 16:00] VITALS: BP 117/54
[2020-04-29] MEDS ORDERED: ALBUTEROL FS 2.5 MG/0.5 ML VIAL.NEB NEB PRN (17:00)
[2020-04-29] MEDS ORDERED: ACETAMINOPHEN 650 MG/20.3 ML UDC GT PRN (17:30)
[2020-04-29] MEDS ORDERED: ONDANSETRON 4 MG TAB.RAPDIS GT PRN (17:30)
[2020-04-29] MEDS: VANCOMYCIN 1 GM in IV D5W 250ml IV SCH (17:33)
[2020-04-29] MEDS: AMIODARONE HCL 200 MG TABLET GT SCH (17:38)
[2020-04-29] MEDS: ASCORBIC ACID 500 MG TABLET GT SCH (17:38)
[2020-04-29] MEDS ORDERED: POTASSIUM CHLORIDE 20 MEQ POWDER PACKET GT ONE (19:00)
--- NOTE | 2020-04-29 19:06 | NUR ---
MS RN NOTES PATIENT IN BED RESTING NO SOB OR ACUTE DISTRESS NOTED. ALL DUE MEDICATIONS ADMINISTERED. ALL NEEDS MET. NO ACUTE CHANGES NOTED DURING SHIFT. WILL ENDORSE CARE TO PM SHIFT.
--- NOTE | 2020-04-29 19:20 | NUR ---
MS RN PM OPENING NOTE BEDSIDE REPORT RECIEVED FROM YANELI GAMEZ. PATIENT IN BED RESTING; PT OPENS EYES TO TOUCH AND LIGHT PAIN. NO SOB OR ACUTE DISTRESS NOTED RESP EVEN AND UNLABORED TPIECE CONNECTED TO TRACH AT 5L.FC DRAINING CLEAR YELLOW URINE TO GRAVITY MICHELE PICC FLUSED . NO S/S OF COMPLICATIONS OF INFILTRATION. WILL CONT TO MONITOR FOR CHANGES. BED DOWN LOCKED SRX3. CALL LIGHT PLACED WITHIN REACH.
[2020-04-29 20:23] VITALS: BP 121/58
[2020-04-29] MEDS: PROSOURCE / PROSTAT (PYXIS) 30 ML UDC GT SCH (21:00)
[2020-04-29] MEDS: LEVETIRACETAM SOL (5 ML) 100 MG/ML UDC GT SCH (21:37)
[2020-04-29] MEDS: PANTOPRAZOLE 40 MG/PACK PACK GT SCH (21:37)
[2020-04-29] MEDS: HYDROGEN PEROXIDE 480 ML BOTTLE TP SCH (21:38)
[2020-04-29] MEDS: Z GUARD REMEDY 2 OZ OINT TP SCH (21:39)
[2020-04-29] MEDS ORDERED: TAMSULOSIN 0.4 MG CAP.SR.24H GT SCH (22:00)
--- NOTE | 2020-04-29 22:55 | NUR ---
prostat not supplied/missing in nutrition room. called resort housekeeper none available in immediate supply
[2020-04-30] MEDS: PIPERACILLIN /TAZOBACTAM 3.375 G in IV D5W 50 ML IV SCH (00:58)
[2020-04-30] MEDS: PROSOURCE / PROSTAT (PYXIS) 30 ML UDC GT SCH ×2 (04:41→13:23)
[2020-04-30] MEDS ORDERED: CEFEPIME 2 GM in IV NS 0.9% 50 ML IV SCH ×4 (05:00)
[2020-04-30] MEDS ORDERED: CEFEPIME 1 GM VIAL ONE (05:13)
[2020-04-30] MEDS ORDERED: VANCOMYCIN HCL 0.75 GM in IV D5W 250 ML IV SCH (06:00)
[2020-04-30 07:02] LABS: BASOPHILS % (AUTO) 0.6 % (0.0-2.0); EOSINOPHILS % (AUTO) 3.3 % (0.0-6.0); HEMATOCRIT 26 % (39-51); HEMOGLOBIN 8.8 g/dL (13.5-17.5); LYMPHOCYTES # (AUTO) 0.7 /CMM (0.8-4.8); LYMPHOCYTES % (AUTO) 11.8 % (20.0-44.0); MEAN CORPUSCULAR HGB CONC 33 g/dl (31.0-36.0); MEAN CORPUSCULAR VOLUME 82 fL (80-96); MONOCYTES # (AUTO) 0.5 /CMM (0.1-1.30); MONOCYTES % (AUTO) 8.4 % (2.0-12.0); NEUTROPHILS # (AUTO) 4.4 /CMM (1.8-8.9); NEUTROPHILS % (AUTO) 75.9 % (43.0-81.0); PLATELET COUNT (AUTO) 169 /CMM (150-450); RED BLOOD CELL COUNT(AUTO) 3.21 MIL/uL (4.5-6.0); WHITE BLOOD COUNT (AUTO) 5.8 K/uL (4.3-11.0)
[2020-04-30 07:04] LABS: CALCIUM, SERUM 8.6 mg/dL (8.5-10.1); POTASSIUM 3.6 mmol/L (3.5-5.1)
[2020-04-30] MEDS ORDERED: CEFE2FRO IV (07:20)
[2020-04-30 07:30] LABS: APPEARANCE,URINE CLEAR (CLEAR); BILIRUBIN,URINE NEGATIVE (NEGATIVE); BLOOD, URINE MODERATE Ery/uL (NEGATIVE); COLOR,URINE YELLOW (YELLOW); KETONES,URINE NEGATIVE (NEGATIVE); LEUKOCYTE ESTERASE ,URINE MODERATE (NEGATIVE); NITRITE, URINE NEGATIVE (NEGATIVE); PROTEIN,URINE TRACE mg/dl (NEGATIVE); UGLUCOSE NEGATIVE (NEGATIVE); UROBILINOGEN,URINE 0.2 EU/dL (0.2)
--- NOTE | 2020-04-30 07:30 | NUR ---
RN NOTES RECEIVED PATIENT IN BED RESTING. NOT IN ANY FORM OF DISTRESS. PATIENT WITH TRACH ON 5L COOL AEROSOL. SAFETY PRECAUTIONS IN PLACE. WITH PICC LINE INTACT PATENT. WEISS INTACT AND PATENT. GTUBE IN PLACE, FEEDING TOLERATING WELL. BED IN LOW/LOCKED POSITION, SIDERAILS UPX2, CALL LIGHT IN REACH. WILL CONTINUE TO MONITOR.
[2020-04-30 08:00] VITALS: BP 129/71
[2020-04-30 08:27] VITALS: BP 123/71
[2020-04-30] MEDS: AMIODARONE HCL 200 MG TABLET GT SCH (08:27)
[2020-04-30] MEDS: LEVETIRACETAM SOL (5 ML) 100 MG/ML UDC GT SCH (08:28)
[2020-04-30] MEDS: ASCORBIC ACID 500 MG TABLET GT SCH (08:28)
[2020-04-30] MEDS: PANTOPRAZOLE 40 MG/PACK PACK GT SCH (08:28)
[2020-04-30] MEDS: Z GUARD REMEDY 2 OZ OINT TP SCH (08:29)
[2020-04-30] MEDS: HYDROGEN PEROXIDE 480 ML BOTTLE TP SCH (08:29)
[2020-04-30] MEDS: ENOXAPARIN SODIUM 40 MG/0.4 ML DISP.SYRIN SQ SCH (08:40)
[2020-04-30] MEDS ORDERED: MULTIVIT W/MINERALS 1 TAB TABLET GT SCH (09:00)
[2020-04-30 09:54] LABS: RBC,URINE 21-50 /HPF (0-2)
[2020-04-30 09:55] LABS: SQUAMOUS EPITHELIAL CELL,UR Rare /HPF (None Seen)
[2020-04-30 09:56] LABS: BACTERIA,URINE Few /HPF (None Seen)
--- NOTE | 2020-04-30 15:00 | NUR ---
DISCHARGED PATIENT TO [facility] SUBACUTE IN STABLE CONDITION. BEDSIDE REPORT GIVEN TO FRANCO LOCKE. DC INSTRUCTIONS, PAPERWORKS AND MED LIST GIVEN TO SUBACUTE RN. SKIN PHOTOS TAKEN. NO BELONGINGS NOTED.
[2020-04-30] MEDS ORDERED: CEFEPIME 2 GM in IV D5W 100 ML IV SCH (18:00)
== END 2020-04-30 15:00 | DRG 871 ==
LOC: ICU 10:14 → MED 04-28 09:42 → TELE 04-28 10:13 → MED 04-29 10:01
PROVIDERS: ADMIT Internal Medicine; ATTEND Family Medicine
PROC: 02HV33Z Insertion of Infusion Device into Superior Vena Cava, Percutaneous Approach (ICD-10-PCS; principal; 2020-04-27)
PROC: B548ZZA Ultrasonography of Superior Vena Cava, Guidance (ICD-10-PCS; 2020-04-27)
DX: A41.50 Gram-negative sepsis, unspecified (principal); L89.153 Pressure ulcer of sacral region, stage 3; E43 Unspecified severe protein-calorie malnutrition; G93.41 Metabolic encephalopathy; R65.21 Severe sepsis with septic shock; J15.6 Pneumonia due to other Gram-negative bacteria; J96.11 Chronic respiratory failure with hypoxia; J96.12 Chronic respiratory failure with hypercapnia; N39.0 Urinary tract infection, site not specified; E87.2 Acidosis; I13.0 Hypertensive heart and chronic kidney disease with heart failure and stage 1 through stage 4 chronic kidney disease, or unspecified chronic kidney disease; N17.9 Acute kidney failure, unspecified; E27.40 Unspecified adrenocortical insufficiency; D69.6 Thrombocytopenia, unspecified; Z98.890 Other specified postprocedural states; Z93.1 Gastrostomy status; Z93.0 Tracheostomy status; Z86.14 Personal history of Methicillin resistant Staphylococcus aureus infection; Z85.46 Personal history of malignant neoplasm of prostate; R13.10 Dysphagia, unspecified; K44.9 Diaphragmatic hernia without obstruction or gangrene; K21.9 Gastro-esophageal reflux disease without esophagitis; I25.10 Atherosclerotic heart disease of native coronary artery without angina pectoris; I48.91 Unspecified atrial fibrillation; E87.6 Hypokalemia; E78.5 Hyperlipidemia, unspecified; Z86.73 Personal history of transient ischemic attack (TIA), and cerebral infarction without residual deficits; F03.90 Unspecified dementia, unspecified severity, without behavioral disturbance, psychotic disturbance, mood disturbance, and anxiety; N40.0 Benign prostatic hyperplasia without lower urinary tract symptoms; Z22.322 Carrier or suspected carrier of Methicillin resistant Staphylococcus aureus; I50.9 Heart failure, unspecified; N18.9 Chronic kidney disease, unspecified; Y95 Nosocomial condition; S31.20XA Unspecified open wound of penis, initial encounter; X58.XXXA Exposure to other specified factors, initial encounter; Y92.9 Unspecified place or not applicable; K59.00 Constipation, unspecified; I25.2 Old myocardial infarction; D63.8 Anemia in other chronic diseases classified elsewhere; E11.22 Type 2 diabetes mellitus with diabetic chronic kidney disease; G40.909 Epilepsy, unspecified, not intractable, without status epilepticus; E86.1 Hypovolemia; R31.9 Hematuria, unspecified
CPT/HCPCS: 31720; 36415; 36569; 36600; 71045-TC; 80048-TC; 80053-TC; 80202-TC; 81000-TC; 82533; 83605-TC; 83735-TC; 84100-TC; 84484-TC; 85025-TC; 87040-TC; 87070-TC; 87081-TC; 87086-TC; 94640-TC; 94762-TC; 94799-TC; C1751; C1769; G0378; J0692; J1650; J1953; J2543; J3370; J7030; J7040; J7050; J7060

== ENCOUNTER 2021-09-21 05:40 | Inpatient (IN) | payer MEDICARE, OTHER ==
[~2021-09-21] VITALS: Ht 170.2 cm; Wt 78.5 kg
[2021-09-21] VITALS (21 sets, daily range): BP systolic 86–142; BP diastolic 45–89
[~2021-09-21 05:40] MED LIST changes: -AMIO200T4 GT; +AMIO200T5 GT; -ATOR20TA GT; +BENZ236L TP; +CEFE2FRO IV; +ECON15CR2 TP; -GLYC2TAB21 GT; +HYDR1SOL TD; +MAG355OR18 GT; -METO50TA16 GT; -MUPI22OI7; +PIPE4.5F2 IV
--- NOTE | 2021-09-21 05:47 | NUR ---
WAS ADVISED BY STATISTICAL CLERK ADVERTISINGSANDIE HDZ UNCERTAIN CODE STROKE WILL CALL FOR CT HEAD WO WHEN PATIENT IS READY FOR EXAMINATION AT THIS TIME 05:40....END OF TECH NOTE.
[2021-09-21] MEDS ORDERED: ADENOSINE 6 MG/2 ML VIAL ONE (05:50)
[2021-09-21] MEDS ORDERED: Magnesium 1GM/D5W 100ML PREMIX 200 ML IV ONE (05:58)
[2021-09-21] MEDS ORDERED: Magnesium 1GM/D5W 100ML PREMIX PIGGYBACK IV ONE (06:00)
[2021-09-21] MEDS ORDERED: METOPROLOL TARTRATE INJ 5 MG/5 ML AMPUL ONE (06:00)
[2021-09-21] MEDS ORDERED: METOPROLOL TARTRATE INJ 5 MG/5 ML AMPUL IV ONE (06:00)
[2021-09-21] MEDS ORDERED: ADENOSINE 6 MG/2 ML VIAL IVP ONE ×2 (06:00)
--- NOTE | 2021-09-21 06:02 | NUR ---
PT BROUGHT FROM SUB ACUTE C/O SVT @170'S. PLACED IN BED 8 ON COIL SHAPER AND PULSE OX. ER MD AT BEDSIDE FOR EVAL. AWAITING ORDERS.
[2021-09-21 06:27] LABS: BASOPHILS # (AUTO) 0.1 K/uL (0.0-0.2); BASOPHILS % (AUTO) 0.7 % (0.0-2.0); EOSINOPHILS % (AUTO) 5.9 % (0.0-6.0); HEMATOCRIT 38 % (39-51); HEMOGLOBIN 12.7 g/dL (13.5-17.5); LYMPHOCYTES # (AUTO) 1.7 K/uL (0.8-4.8); LYMPHOCYTES % (AUTO) 19.3 % (20.0-44.0); MEAN CORPUSCULAR HGB CONC 34 g/dl (31.0-36.0); MEAN CORPUSCULAR VOLUME 86 fL (80-96); MONOCYTES # (AUTO) 0.9 K/uL (0.1-1.30); NEUTROPHILS # (AUTO) 5.7 K/uL (1.8-8.9); NEUTROPHILS % (AUTO) 64.1 % (43.0-81.0); PLATELET COUNT (AUTO) 235 K/uL (150-450); RED BLOOD CELL COUNT(AUTO) 4.39 MIL/uL (4.5-6.0); WHITE BLOOD COUNT (AUTO) 8.9 K/uL (4.3-11.0)
--- NOTE | 2021-09-21 06:27 | NUR ---
XRAY AT BEDSIDE
--- NOTE | 2021-09-21 06:40 | NUR ---
COVID SWAB SENT TO LAB
[2021-09-21 06:59] LABS: ALANINE AMINOTRANSFERASE 53 U/L (12-78); ALBUMIN 3.2 g/dL (3.4-5.0); ALKALINE PHOSPHATASE 95 U/L (46-116); ASPARTATE AMINOTRANSFERASE 27 U/L (15-37); BILIRUBIN,DIRECT 0.1 mg/dL (0.0-0.2); BILIRUBIN,TOTAL 0.2 mg/dL (0.2-1.0); CALCIUM, SERUM 8.8 mg/dL (8.5-10.1); CARBON DIOXIDE 32 mmol/L (21-32); CHLORIDE 94 mmol/L (98-107); GLUCOSE 185 mg/dL (74-106); POTASSIUM 4.2 mmol/L (3.5-5.1); SODIUM SERUM 133 mmol/L (136-145); UREA NITROGEN, BLOOD 22 mg/dL (7-18)
--- NOTE | 2021-09-21 07:41 | NUR ---
GAVE REPORT TO FRANCO VEE FOR LUIS FERNANDO
--- NOTE | 2021-09-21 07:50 | NUR ---
[facility] CALLED FURNITURE SPRAYER PAGED.
[2021-09-21] MEDS ORDERED: ACETAMINOPHEN 650 MG/20.3 ML UDC ONE (08:18)
--- NOTE | 2021-09-21 08:24 | NUR ---
TYLENOL 1000 MG VIA GT GIVEN FOR MILD ABDOMINAL PAIN.
[2021-09-21] MEDS ORDERED: ACETAMINOPHEN 160 MG/5 ML GT ONE (08:30)
[2021-09-21] MEDS ORDERED: ACETAMINOPHEN ES 500 MG TABLET GT ONE (08:30)
[2021-09-21] MEDS ORDERED: ACETAMINOPHEN 650 MG/20.3 ML UDC GT ONE (08:30)
--- NOTE | 2021-09-21 08:44 | NUR ---
room 314-1
--- NOTE | 2021-09-21 09:10 | NUR ---
REPORT GIVEN TO NURSE SAGASTUME FOR LUIS FERNANDO
--- NOTE | 2021-09-21 09:25 | NUR ---
THE PATIENT IS IN NO APPARENT DISTRESS.
--- NOTE | 2021-09-21 09:29 | NUR ---
THE PATIENT IS TRANSFERED TO ROOM 314-1 VIA GURNEY, IN STABLE CONDITION AND PER ACLS POLICY.
[2021-09-21] MEDS ORDERED: [UNRECOGNIZED DRUG - SUPPLY] TD (09:30)
[2021-09-21] MEDS ORDERED: MAGN400O6 GT (09:30)
[2021-09-21] MEDS ORDERED: BISA10SU11 RC (09:30)
[2021-09-21] MEDS ORDERED: POLY17PO4 GT (09:30)
[2021-09-21] MEDS ORDERED: HEPA50007 SQ (09:30)
[2021-09-21] MEDS ORDERED: MELA3TAB41 GT (09:30)
[2021-09-21] MEDS ORDERED: PETR113O TP (09:30)
[2021-09-21] MEDS ORDERED: ALBU2.5V13 IH (09:30)
[2021-09-21] MEDS ORDERED: ACET-868 GT (09:30)
[2021-09-21] MEDS ORDERED: TERA1CAP4 GT (09:30)
[2021-09-21] MEDS ORDERED: IPRA0.2S9 IH (09:30)
--- NOTE | 2021-09-21 09:35 | NUR ---
RN NOTE- PT ARRIVED ON UNIT. ADMIT AT THIS TIME.
--- NOTE | 2021-09-21 09:35 | NUR ---
RN NOTE- PT ADMITTED FROM SUB ACUTE AND ED FOR TACHYCARDIA. PT WAS ON SUBACUTE AND BEGAN EXPERIENCING HR 120-170'S. PT W PMHX - DYSPHAGIA, SUBDURAL HEMORRHAGE , EPILEPSY, HTN , HLD, PROSTATE CA, NARCOLEPSY, SBO W PARTIAL RESECTION. PT HAS GT. PT W TRACH COLLAR AT 5LPM. LUNGS W DIMINISHED BREATH SOUNDS. PT FULL ASSIST W ALL CARE. ORIENTED TO SELF ONLY ,. SPEECH GARBLED AND UNINTELLIGIBLE. VS- BP- 113/58, , HR - AFIB 108, RR- 20. T- 98.0 SATS 100% 5LPM TRACH COLLAR. ORDERS CALLED FOR. DR DANIEL TO INITIATE. BED LOCKED, SIDE RAILS UP. MONITORING
[2021-09-21] MEDS ORDERED: ZOLPIDEM TARTRATE 5 MG TABLET PO PRN (13:00)
[2021-09-21] MEDS ORDERED: ACETAMINOPHEN 325 MG TABLET PO PRN (13:00)
[2021-09-21] MEDS ORDERED: Z GUARD REMEDY 2 OZ OINT TP PRN (13:00)
[2021-09-21] MEDS ORDERED: MAG HYDROX/AL HYDROX/SIMETH 30 ML UDC PO PRN (13:00)
[2021-09-21] MEDS ORDERED: ONDANSETRON HCL/PF 4 MG/2 ML VIAL IVP PRN (13:00)
[2021-09-21] MEDS ORDERED: MAGNESIUM HYDROXIDE 30 ML UDC PO PRN (13:00)
--- NOTE | 2021-09-21 13:26 | NUR ---
RN NOTE- PT HR 170-180. DR DANIEL AT BEDSIDE. PT TRANSFERRING TO ICU. COMPLYING
[2021-09-21] MEDS ORDERED: DILTIAZEM HCL IV 125 MG in IV NS 0.9% 100 ML IV PRN (13:30)
--- NOTE | 2021-09-21 13:50 | NUR ---
RN NOTES PATIENT RECEIVED FROM TELE UNIT , ON Dx OF TACHYCARDIA, PATIENT AWAKE, NO ACUTE RESPIRATORY DISTRESS, ON TRACH WITH 5LO2. SKIN INTACT, IV ACCESS ON LEFT AC AREA INTACT. HR-151, PATIENT CONGESTED, COUGHING THICK YELLOW SECRETION , SUCTIONED. PATIENT HAS GT, FLASHING WELL AND CLAMPED. PATIENT NPO ER HOSPITALIST. FOLY DRAINING YELLOW OUTPUT WITH SEDIMENTS. CALL LIGHT WITHIN TO REACH. WILL FOLLOW UP.
--- NOTE | 2021-09-21 13:56 | NUR ---
RN NOTE- PT TRANSFERRED TO ICU. REPORT GIVEN TO STAFF. DR DANIEL IN ATTENDANCE
--- NOTE | 2021-09-21 14:08 | NUR ---
RN NOTES STARTED CARDIZEM DRIP 5 5MG/ML HR ON LEFT AC AREA INTACT AT THIS TIME, HR-138, BP 118/70 AT THIS TIME, PATIENT DEEP SUCTION VIA RT, PATIENT CONGESTED. PATIENT ON TRACH WITH 5L O2. SKIN ASSESSMENT DONE INTACT, GT CLAMPED AND INTACT. WEISS DRAINING YELLOW OUTPUT. ASSIST TURN AND REPOSITION Q 2 HR. PATIENT HAS PADDED SIDE RAILS BECAUSE OF SEIZURE DISORDER. CALL LIGHT WITHIN TO REACH, WILL FOLLOW UP.
--- NOTE | 2021-09-21 14:09 | NUR ---
RN NOTES ECHO DONE AT HIS TIME VIA US TECH, PATIENT EF-65%.
[2021-09-21] MEDS: ENOXAPARIN SODIUM 40 MG/0.4 ML DISP.SYRIN SQ SCH (14:26)
--- NOTE | 2021-09-21 15:40 | NUR ---
RN NOTES HELD COBY RUCKER BECAUSE OF HR 92 INCREASED ONLY WHEN PATIENT COUGHING, BUT GOES BACK DOWN SHORTLY AFTER.. HOSPITALIST DR DANIEL NOTIFIED. PATIENT KEEP NPO PER DR DANIEL.
--- NOTE | 2021-09-21 16:55 | NUR ---
RT PATIENT REC'D ADMIT FROM ER. PATIENT REC'D TRACHED ON T-PIECE 5L 40% FIO2. PATIENT AWAKE, NO SOB. SX'D AND AIRWAY SECURE AND PATENT. AMBU BAG AT HOB. Addendum: 09/21/21 at 1657 by RICHAR SMITH RT Amended: Links added.
--- NOTE | 2021-09-21 18:00 | NUR ---
RN NOTE HELD COBY RUCKER AT THI TIME HR-84, BP 124/66. PATIENT PM CARE DONE, SUCTION, ASSIST TURN AD REPOSTION Q 2 HR. BED SIDE RAIL UP. KEEP HOB ELEVATED FR ASPIRATION PRECAUTION. ENDORSED ONCOMING NURSE FOLLOW PLAN OF CARE.
[2021-09-21] MEDS ORDERED: IV NS 0.9% 500 ML IV ONE (23:00)
[2021-09-21] MEDS: DILTIAZEM HCL 30 MG TABLET PO SCH (23:40)
[2021-09-22] VITALS (30 sets, daily range): BP systolic 99–161; BP diastolic 59–93
--- NOTE | 2021-09-22 04:35 | NUR ---
PASTE UP WORKER PT IS CONFUSED, DISORIENTED, DOES NOT FOLLOW ANY COMMANDS. TURKMEN SPEAKING ONLY. LEFT ARM IS STRONG, RIGHT ARM PRETTY WEAK. O2 VIA T-PIECE-40%, LARGE TO MODERATE AMT. THICK YELLOWISH SECRETION. VSS, AFEBRILE, SCOPE-SR. NO CARDIZEM DRIP ANY MORE. BOTH PORTS OF RIGHT ARM MIDLINE FLUSHED WITH GOOD BLOOD RETURN FOR LAB WORK. F/C DRAINS INSUFFICIENT AMT. OF CLOUDY WITH SEDIMENT URINE. INCONTINENT IN BM.
[2021-09-22 04:44] LABS: BASOPHILS % (AUTO) 0.6 % (0.0-2.0); EOSINOPHILS % (AUTO) 7.3 % (0.0-6.0); HEMATOCRIT 35 % (39-51); HEMOGLOBIN 11.7 g/dL (13.5-17.5); LYMPHOCYTES # (AUTO) 0.9 K/uL (0.8-4.8); LYMPHOCYTES % (AUTO) 12.2 % (20.0-44.0); MEAN CORPUSCULAR HGB CONC 34 g/dl (31.0-36.0); MEAN CORPUSCULAR VOLUME 85 fL (80-96); MONOCYTES # (AUTO) 0.7 K/uL (0.1-1.30); MONOCYTES % (AUTO) 9.2 % (2.0-12.0); NEUTROPHILS # (AUTO) 5.1 K/uL (1.8-8.9); NEUTROPHILS % (AUTO) 70.7 % (43.0-81.0); PLATELET COUNT (AUTO) 230 K/uL (150-450); RED BLOOD CELL COUNT(AUTO) 4.05 MIL/uL (4.5-6.0); WHITE BLOOD COUNT (AUTO) 7.2 K/uL (4.3-11.0)
[2021-09-22 04:53] LABS: CALCIUM, SERUM 8.5 mg/dL (8.5-10.1); CARBON DIOXIDE 30 mmol/L (21-32); CHLORIDE 98 mmol/L (98-107); GLUCOSE 119 mg/dL (74-106); MAGNESIUM 2.4 mg/dL (1.8-2.4); PHOSPHORUS 3.7 mg/dL (2.5-4.9); POTASSIUM 4.1 mmol/L (3.5-5.1); SODIUM SERUM 135 mmol/L (136-145); UREA NITROGEN, BLOOD 21 mg/dL (7-18)
[2021-09-22 05:10] LABS: THYROID STIMULATING HORMONE 1.216 uIU/mL (0.358-3.74)
[2021-09-22] MEDS: DILTIAZEM HCL 30 MG TABLET PO SCH ×3 (05:21→17:26)
--- NOTE | 2021-09-22 08:00 | NUR ---
RN NOTES RECEIVED PATIENT ON TRACH -PICES WITH 5LO2, NO ACUTE RESPIRATORY DISTRESS. PT AWAKE, BUT CONFUSED, DISORIENTED, DOES NOT FOLLOW ANY COMMANDS. CONGESTED, GET SUCTION DEEP VIA RT HAS THICK YELLOWISH SECRETION. VSS, AFEBRILE, SR-71. RIGHT UA MIDLINE INTACT FLUSHED WITH GOOD BLOOD RETURN FOR LAB WORK. F/C DRAINS YELLOW OF CLOUDY WITH SEDIMENT URINE. ASSIST TURN AND REPOSTION Q 2 HR. SIDE RAILS UP X4. WILL FALLOW UP.
[2021-09-22] MEDS: PANTOPRAZOLE 40 MG TABLET.DR PO SCH (09:15)
[2021-09-22] MEDS: JEVITY 1.2 CAL 1,000 ML BOTTLE GT SCH (09:56)
--- NOTE | 2021-09-22 10:30 | NUR ---
RN NOTES STARTED JEVITY 1.2 @50CC GT FEEDING, NO RESIDUAL, PLACEMENT CHECKED, KEEP HOB ELEVATED. DUE MEDICATION ADMINISTERED.
[2021-09-22 11:44] LABS: EOSINOPHILS % (MANUAL) 8 % (0-4); LYMPHOCYTES % (MANUAL) 14 % (16-48); MONOCYTES % (MANUAL) 9 % (0-11.0); MYELOCYTES % 2 % (0-0); NEUTROPHILS % (MANUAL) 67 (42-76)
[2021-09-22] MEDS: IPRATROPIUM NEB FS 0.5 MG/2.5 ML AMPUL.NEB NEB SCH ×2 (13:03→19:26)
[2021-09-22] MEDS: ENOXAPARIN SODIUM 40 MG/0.4 ML DISP.SYRIN SQ SCH (13:47)
--- NOTE | 2021-09-22 13:55 | NUR ---
RN NOTES ADMINISTERED TYLENOL 650 MG VIA GT FOR PAIN GENERALIZED, YELLING. DUE MEDICATION ADMINISTERED WELL. PATIENT WILL DISCHARGE BACK TO THE SUBACUTE UNIT.
[2021-09-22] MEDS ORDERED: DILT30TA14 PO (14:20)
--- NOTE | 2021-09-22 14:20 | NUR ---
RN NOTES SEEN SMALL LEAKAGE FROM CATHETER SIDE, INSERTED NEW WEISS PER DR TRINIDAD ORDER.
[2021-09-22] MEDS ORDERED: APIX2.5T PO (14:27)
--- NOTE | 2021-09-22 14:30 | NUR ---
RN NOTES NOTIFIED WORKERS' COMPENSATION COMMISSIONER DR TARANGO ABOUT PATIENT POOR URINE OUTPUT SINCE THIS MORNING, AND GET NEW ORDER NS @75ML/HR, PER HAYDEN WILL FOLLOW UP PATIENT IN ICU .
[2021-09-22] MEDS ORDERED: IV 1/2NS 1000 ML 1,000 ML IV PRN (15:00)
[2021-09-22] MEDS: IV NS 0.9% 1,000 ML IV PRN (15:23)
[2021-09-22] MEDS ORDERED: ALBUTEROL FS 2.5 MG/0.5 ML VIAL.NEB NEB PRN (16:00)
[2021-09-22] MEDS ORDERED: BISACODYL SUPP (10 MG) 10 MG/SUPP.RECT SUPP.RECT RC PRN (16:00)
[2021-09-22] MEDS ORDERED: DILTIAZEM HCL 30 MG TABLET PO SCH (18:00)
[2021-09-22] MEDS ORDERED: IPRATROPIUM NEB FS 0.5 MG/2.5 ML AMPUL.NEB IH SCH (18:00)
--- NOTE | 2021-09-22 18:40 | NUR ---
RN NOTES PM CARE DONE, DUE MEDICATION ADMINISTERED, VSS, INFUSING NS @ 75ML/HR, WEISS OUTPUT WAS 300ML, RUNNING JEVITY 1.2 @50ML/HR INTACT. ASSIST TURN AND REPOSTION Q 2 HR. CALL LIGHT WITHIN TO REACH. KEEP HOB ELEVATED. ENDORSED ONCOMING NURSE FOLLOW PLAN OF CARE.
--- NOTE | 2021-09-22 20:15 | NUR ---
CONSUMER SALES REPRESENTATIVE. INITIAL ASSESSMENT. RECEIVED THE PT REST IN BED, TRACH TO VENT CONNECTED. TRACH SHILEY#8, XLT, OXYGEN 35%. SAT 96%, NO ACUTE DISTRESS NOTED, COMPLAINT INSPECTOR SHOWING A FIB CONTROLLED. FC PATENT. IV RT UPPER PETE MID LINE, IVF NS 75ML/H, GT INTACT, WILL CONTINUE TO MONITOR VITALS.
[2021-09-22] MEDS ORDERED: HEPARIN SODIUM, PORCINE 5000 UNITS/1 ML VIAL SQ SCH (21:00)
[2021-09-22] MEDS: LEVETIRACETAM SOL (5 ML) 100 MG/ML UDC GT SCH (21:59)
[2021-09-22] MEDS: TERAZOSIN HCL 1 MG CAPSULE GT SCH (21:59)
[2021-09-23] VITALS (15 sets, daily range): BP systolic 93–152; BP diastolic 53–81
[2021-09-23] MEDS: DILTIAZEM HCL 30 MG TABLET PO SCH ×4 (02:07→17:11)
[2021-09-23] MEDS: IPRATROPIUM NEB FS 0.5 MG/2.5 ML AMPUL.NEB NEB SCH ×4 (02:11→20:17)
[2021-09-23] MEDS: IV NS 0.9% 1,000 ML IV PRN ×2 (04:52→17:46)
--- NOTE | 2021-09-23 05:23 | NUR ---
COAL HANDLER. AM CARE GIVEN. REMAINING SAME OXYGEN TOLERATED WELL. SAT 98%. NO ACUTE DISTRESS NOTED. SOLAR ENERGY TECHNICIAN SHOWING A FIB. CONTROLLED. GT FEEDING TOLERATED WELL. HOB ELEVATED. FC PATENT. URINE DRAINING. TURN AND REPOSITION Q2H. WILL CONTINUE TO MONITOR VITALS.
[2021-09-23] MEDS: LEVETIRACETAM SOL (5 ML) 100 MG/ML UDC GT SCH ×2 (08:25→21:37)
[2021-09-23] MEDS: PANTOPRAZOLE 40 MG TABLET.DR PO SCH (08:25)
[2021-09-23] MEDS: ASCORBIC ACID 500 MG TABLET GT SCH (08:26)
[2021-09-23] MEDS: AMIODARONE HCL 200 MG TABLET GT SCH (08:26)
[2021-09-23] MEDS: APIXABAN 5 MG TABLET PO SCH ×2 (09:07→16:39)
--- NOTE | 2021-09-23 12:00 | NUR ---
telehealth coordinator note received patient from icu alert oriented with confusuion, with trach to cooler aerosol 5l 28%, saturation 95% on tele monitor afib hr 66 at this time, rt upper arm mid line and lt ac hl intact and flushed well , on kci matrass, with g tube feeding as ordered no residual, keep hob elevated at all time noted, will cont to monitor . with ambriz cath to gravty with yellow color urine
--- NOTE | 2021-09-23 14:53 | NUR ---
television announcer note seen by roxann yung relief cook updated patient condition
[2021-09-23] MEDS: JEVITY 1.2 CAL 1,000 ML BOTTLE GT SCH (16:45)
--- NOTE | 2021-09-23 17:47 | NUR ---
emergency telecommunications dispatcher note rounds made, trach care done, turn reposition , keep hob elevated at all time, all needs attended ,no sob at this time,will cont to monitor closely
--- NOTE | 2021-09-23 20:00 | NUR ---
TRAFFIC AGENT NOTE PT IN BED WITH EYES OPEN. TRACH COLLAR SHIELY #8 XLT 5L FIO2 28%. NO SOB, NO DISTRESS OR DISCOMFORT NOTED. NO S/S OF PAIN NOTED. ON TELE SR WITH 1ST DEGREE AV BLOCK HR 76. GTF JEVITY INFUSING AT 50 ML/HR, 0 ML RESIDUAL NOTED. IVF NS INFUSING AT 75 ML/HR AT MICHELE MIDLINE #18 G NO S/S OF INFILTRATION NOTED. SL LAC #20 G INTACT AND PATENT. SIDE RAILS UP X 2 AND CALL LIGHT WITHIN REACH. VSS. CONTINUE TO MONITOR HIM.
[2021-09-23] MEDS: TERAZOSIN HCL 1 MG CAPSULE GT SCH (21:37)
[2021-09-24] VITALS: BP 129/72
[2021-09-24] MEDS: DILTIAZEM HCL 30 MG TABLET PO SCH ×3 (00:53→11:38)
[2021-09-24] MEDS: IPRATROPIUM NEB FS 0.5 MG/2.5 ML AMPUL.NEB NEB SCH ×3 (02:07→13:51)
[2021-09-24 04:00] VITALS: BP 127/78
--- NOTE | 2021-09-24 06:38 | NUR ---
CREATIVE ARTS MUSIC THERAPIST NOTE PT IN BED AWAKE, NO DISTRESS OR DISCOMFORT NOTED. DENIES PAIN. IVF INFUSING WELL, NO S/S OF INFILTRATION. ON TELE SR , GTF INFUSING WELL, 0 ML RESIDAUL NOTED. ALL NEEDS ATTENDED. SIDE RAILS UP X 2 AND CALL LIGHT WITHIN REACH. WILL ENDORSE TO DAY SHIFT NURSE FOR CONTINUE TO CARE.
--- NOTE | 2021-09-24 07:30 | NUR ---
RN NOTE PT IN BED WITH EYES OPEN. TRACH COLLAR SHIELY #8 XLT 5L FIO2 28%. NO SOB, NO DISTRESS OR DISCOMFORT NOTED. NO S/S OF PAIN NOTED. GTF JEVITY INFUSING AT 50 ML/HR, 0 ML RESIDUAL NOTED. IVF NS INFUSING AT 75 ML/HR AT MICHELE MIDLINE #18 G NO S/S OF INFILTRATION NOTED. SL LAC #20 G INTACT AND PATENT. SIDE RAILS UP X 2 AND CALL LIGHT WITHIN REACH. CONTINUE TO MONITOR HIM.
[2021-09-24] MEDS: PANTOPRAZOLE 40 MG TABLET.DR PO SCH (07:43)
[2021-09-24 08:00] VITALS: BP 157/65
[2021-09-24] MEDS: LEVETIRACETAM SOL (5 ML) 100 MG/ML UDC GT SCH (09:14)
[2021-09-24] MEDS: ASCORBIC ACID 500 MG TABLET GT SCH (09:15)
[2021-09-24] MEDS: AMIODARONE HCL 200 MG TABLET GT SCH (09:15)
[2021-09-24] MEDS: APIXABAN 5 MG TABLET PO SCH ×2 (09:16→16:18)
[2021-09-24 10:00] VITALS: BP 142/70
[2021-09-24] MEDS: IV NS 0.9% 1,000 ML IV PRN (11:06)
[2021-09-24 12:00] VITALS: BP 142/70
[2021-09-24 16:00] VITALS: BP 93/52
== END 2021-09-24 16:55 | DRG 280 ==
LOC: ER 05:45 → TELE 08:48 → ICU 13:42 → TELE1 09-23 11:34
PROVIDERS: ADMIT Student in an Organized Health Care Education/Training Program; ATTEND Student in an Organized Health Care Education/Training Program
PROC: 05H533Z Insertion of Infusion Device into Right Subclavian Vein, Percutaneous Approach (ICD-10-PCS; principal; 2021-09-21)
PROC: B546ZZA Ultrasonography of Right Subclavian Vein, Guidance (ICD-10-PCS; 2021-09-21)
DX: I48.0 Paroxysmal atrial fibrillation (principal); G93.41 Metabolic encephalopathy; I21.A1 Myocardial infarction type 2; E87.1 Hypo-osmolality and hyponatremia; E44.1 Mild protein-calorie malnutrition; J96.10 Chronic respiratory failure, unspecified whether with hypoxia or hypercapnia; J98.11 Atelectasis; G40.909 Epilepsy, unspecified, not intractable, without status epilepticus; E11.9 Type 2 diabetes mellitus without complications; E78.5 Hyperlipidemia, unspecified; Z93.0 Tracheostomy status; D64.9 Anemia, unspecified; E86.0 Dehydration; F03.90 Unspecified dementia, unspecified severity, without behavioral disturbance, psychotic disturbance, mood disturbance, and anxiety; G47.419 Narcolepsy without cataplexy; I11.0 Hypertensive heart disease with heart failure; Z86.73 Personal history of transient ischemic attack (TIA), and cerebral infarction without residual deficits; K21.9 Gastro-esophageal reflux disease without esophagitis; Z87.440 Personal history of urinary (tract) infections; Z87.891 Personal history of nicotine dependence; Z85.46 Personal history of malignant neoplasm of prostate; Z93.1 Gastrostomy status; I25.10 Atherosclerotic heart disease of native coronary artery without angina pectoris; Z88.0 Allergy status to penicillin; C61 Malignant neoplasm of prostate; I50.9 Heart failure, unspecified; N40.0 Benign prostatic hyperplasia without lower urinary tract symptoms; R13.10 Dysphagia, unspecified; E88.09 Other disorders of plasma-protein metabolism, not elsewhere classified; Z68.27 Body mass index [BMI] 27.0-27.9, adult; Z20.822 Contact with and (suspected) exposure to COVID-19; I25.2 Old myocardial infarction; Z89.021 Acquired absence of right finger(s); Z87.01 Personal history of pneumonia (recurrent); R93.89 Abnormal findings on diagnostic imaging of other specified body structures; I05.2 Rheumatic mitral stenosis with insufficiency
CPT/HCPCS: 31720; 36415; 71045-TC; 80048-TC; 80076-TC; 83735-TC; 84100-TC; 84443-TC; 84484-TC; 85025-TC; 87081-TC; 93307-TC; 94640-TC; 94760-TC; 94799-TC; C9803; G0378; J0153; J1650; J1953; J3475; J3490; J7030; J7050

== ENCOUNTER 2022-04-13 19:24 | Inpatient (IN) | payer MEDICARE, OTHER ==
[2022-04-13] VITALS (8 sets, daily range): BP systolic 93–110; BP diastolic 45–66
[~2022-04-13] VITALS: Ht 167.6 cm; Wt 67.1 kg
[~2022-04-13 19:24] MED LIST changes: +ACET-868 GT; +ALBU2.5V13 IH; -AMIN30LI2 GT; +APIX2.5T PO; -BENZ236L TP; +BISA10SU11 RC; -CEFE2FRO IV; +DILT30TA14 PO; -ECON15CR2 TP; +IPRA0.2S9 IH; +MAGN400O6 GT; +MELA3TAB41 GT; +PETR113O TP; -PIPE4.5F2 IV; +POLY17PO4 GT; -TAMS-12 GT; +TERA1CAP4 GT; +[UNRECOGNIZED DRUG - SUPPLY] TD
--- NOTE | 2022-04-13 19:45 | NUR ---
ICU/PROGRAM MANAGEMENT INTERN RECEIVED REPORT FROM SUBACUTE FRANCO DANG. PT IS TRANSFERED TO 269/2 TO ROOM 253.
--- NOTE | 2022-04-13 20:17 | NUR ---
ICU/NURSE TRANSPLANT RECEIVED PT FROM SUBACUTE. PT PLACED ON MONITOR AND ORDERS WERE TAKEN OFF AND CARRIED OUT.
[2022-04-13] MEDS ORDERED: ONDANSETRON HCL/PF 4 MG/2 ML VIAL IVP PRN (20:30)
[2022-04-13] MEDS ORDERED: MORPHINE SULFATE INJ 2 MG/ML DISP.SYRIN IV PRN (20:30)
[2022-04-13] MEDS ORDERED: MAG HYDROX/AL HYDROX/SIMETH 30 ML UDC PO PRN (20:30)
[2022-04-13] MEDS ORDERED: Z GUARD REMEDY 4 OZ OINT TP PRN (20:30)
[2022-04-13] MEDS ORDERED: ACETAMINOPHEN 650 MG/SUPP.RECT RC PRN (20:30)
[2022-04-13] MEDS: IV NS 0.9% 1,000 ML IV PRN (21:02)
[2022-04-13] MEDS ORDERED: MEROPENEM 500 MG VIAL IV ONE (21:03)
[2022-04-13] MEDS: MEROPENEM 500 MG in IV NS 0.9% 50 ML IV SCH (21:04)
[2022-04-13 21:29] LABS: BASOPHILS % (AUTO) 0.2 % (0.0-2.0); EOSINOPHILS % (AUTO) 0.4 % (0.0-6.0); HEMATOCRIT 36 % (39-51); HEMOGLOBIN 11.9 g/dL (13.5-17.5); LYMPHOCYTES # (AUTO) 0.9 K/uL (0.8-4.8); MEAN CORPUSCULAR HGB CONC 33 g/dl (31.0-36.0); MEAN CORPUSCULAR VOLUME 80 fL (80-96); MONOCYTES # (AUTO) 1.1 K/uL (0.1-1.30); MONOCYTES % (AUTO) 9.3 % (2.0-12.0); NEUTROPHILS # (AUTO) 9.6 K/uL (1.8-8.9); NEUTROPHILS % (AUTO) 82.1 % (43.0-81.0); PLATELET COUNT (AUTO) 255 K/uL (150-450); RED BLOOD CELL COUNT(AUTO) 4.47 MIL/uL (4.5-6.0); WHITE BLOOD COUNT (AUTO) 11.8 K/uL (4.3-11.0)
[2022-04-13] MEDS ORDERED: VANCOMYCIN 1.25 GM in IV D5W 250 ML IV ONE (21:30)
[2022-04-13] MEDS ORDERED: VANCOMYCIN 500 MG VIAL ONE (22:01)
[2022-04-13] MEDS ORDERED: VANCOMYCIN 1 GM VIAL ONE (22:07)
[2022-04-13 22:09] LABS: ALANINE AMINOTRANSFERASE 34 U/L (12-78); ALBUMIN 2.6 g/dL (3.4-5.0); ALKALINE PHOSPHATASE 89 U/L (46-116); ASPARTATE AMINOTRANSFERASE 29 U/L (15-37); BILIRUBIN,TOTAL 0.4 mg/dL (0.2-1.0); CALCIUM, SERUM 8.6 mg/dL (8.5-10.1); CARBON DIOXIDE 31 mmol/L (21-32); CHLORIDE 97 mmol/L (98-107); CREATININE 1.1 mg/dL (0.6-1.3); GLUCOSE 128 mg/dL (74-106); MAGNESIUM 2.1 mg/dL (1.8-2.4); PHOSPHORUS 3.4 mg/dL (2.5-4.9); POTASSIUM 3.9 mmol/L (3.5-5.1); SODIUM SERUM 136 mmol/L (136-145); TOTAL PROTEIN, SERUM 7.4 g/dL (6.4-8.2); UREA NITROGEN, BLOOD 22 mg/dL (7-18)
--- NOTE | 2022-04-13 22:17 | NUR ---
MED NOTE: ALL MEDS ADMINISTERED UNDER VERIFIED DOSES.
--- NOTE | 2022-04-13 22:26 | NUR ---
ICU/SUPERVISOR CHLORINE LIQUEFACTION SPUTUM CULTURE COLLECTED AND SENT OFF TO LAB, ALONG WITH UA, AND BLOOD CULTURE. CHEST XRAY DONE AND RESULTED.
[2022-04-13 22:41] LABS: BILIRUBIN,URINE NEGATIVE (NEGATIVE); COLOR,URINE YELLOW (YELLOW); LEUKOCYTE ESTERASE ,URINE LARGE (NEGATIVE); NITRITE, URINE NEGATIVE (NEGATIVE); PH,URINE 8.5 (5.0-8.0); PROTEIN,URINE 100 mg/dl (NEGATIVE); UGLUCOSE NEGATIVE (NEGATIVE); UROBILINOGEN,URINE 0.2 EU/dL (0.2)
[2022-04-13 23:20] LABS: BACTERIA,URINE Many /HPF (None Seen)
[2022-04-13 23:21] LABS: SQUAMOUS EPITHELIAL CELL,UR None Seen /HPF (None Seen); TRIPLE PHOSPHATE CRYSTAL,UR Many /HPF (None Seen)
[2022-04-14] VITALS (24 sets, daily range): BP systolic 102–142; BP diastolic 25–82
[2022-04-14] MEDS ORDERED: MEROPENEM 500 MG VIAL IV ONE (04:11)
[2022-04-14] MEDS: MEROPENEM 500 MG in IV NS 0.9% 50 ML IV SCH ×3 (04:15→20:49)
[2022-04-14 04:23] LABS: BASOPHILS # (AUTO) 0.1 K/uL (0.0-0.2); BASOPHILS % (AUTO) 0.5 % (0.0-2.0); EOSINOPHILS % (AUTO) 0.7 % (0.0-6.0); HEMATOCRIT 37 % (39-51); HEMOGLOBIN 12.1 g/dL (13.5-17.5); LYMPHOCYTES # (AUTO) 0.9 K/uL (0.8-4.8); LYMPHOCYTES % (AUTO) 7.6 % (20.0-44.0); MEAN CORPUSCULAR HGB CONC 33 g/dl (31.0-36.0); MEAN CORPUSCULAR VOLUME 81 fL (80-96); MONOCYTES # (AUTO) 1.1 K/uL (0.1-1.30); NEUTROPHILS # (AUTO) 9.6 K/uL (1.8-8.9); NEUTROPHILS % (AUTO) 82.2 % (43.0-81.0); PLATELET COUNT (AUTO) 258 K/uL (150-450); RED BLOOD CELL COUNT(AUTO) 4.53 MIL/uL (4.5-6.0); WHITE BLOOD COUNT (AUTO) 11.7 K/uL (4.3-11.0)
[2022-04-14 04:38] LABS: CALCIUM, SERUM 8.7 mg/dL (8.5-10.1); MAGNESIUM 2.1 mg/dL (1.8-2.4); PHOSPHORUS 3.3 mg/dL (2.5-4.9)
--- NOTE | 2022-04-14 07:30 | NUR ---
#253 RN OPENING NOTE PT OBSERVED IN BED SLEEPING. PT IS ON COOL AEROSOL 40% FIO2. PT IS ALERT TO SELF AND ONLY OPENS EYES. PT ON MONITOR SR. GTUBE IS IN PLACE WITH POSITIVE PLACEMENT AND CLAMPED AT THIS TIME. FC IS IN PLACE DRAINING URINE TO GRAVITY. IV ACCESS R UA ML INFUSING WITH NS @75ML/HR. BED IS LOCKED IN LOWEST POSITION X2 BED RAILS UP ALL HOSPTIAL SAFETY MEASURES ARE IN PLACE. WILL CONTINUE TO MONITOR THIS SHIFT.
[2022-04-14] MEDS ORDERED: GUAI100S11 GT (07:51)
[2022-04-14] MEDS ORDERED: DILT30TA14 GT (07:51)
[2022-04-14] MEDS: PANTOPRAZOLE 40 MG VIAL IV SCH (09:15)
[2022-04-14] MEDS: VANCOMYCIN 0.75 GM in IV D5W 250 ML IV SCH ×2 (10:18→21:26)
[2022-04-14] MEDS ORDERED: IV NS 0.9% 250 ML IV PRN (10:30)
[2022-04-14] MEDS: IV NS 0.9% 1,000 ML IV PRN (12:56)
--- NOTE | 2022-04-14 13:40 | NUR ---
ANALYTICS ASSOCIATE OPENING NOTES: RECEIVED PATIENT VIA GURNEY FROM ICU AT 1340 PM. PATIENT IS ALERT WITH OPEN EYES AND RESPONDS WHEN SPEAKING IN VATICAN CITIZEN LANGUAGE WITH NODDING HIS HEAD. HE IS TRYING TO GRASP MY ARM WITH HIS RIGHT HAND. NO PAIN NOTED. NO SOB NOTED. NO DISTRESS NOTED. ON COOL AEROSOL WITH FIO2 40 %. ON TELE MONITOR READING SR. WEISS CATHETER INTACT DRAINING YELLOW COLOR URINE. IV ACCESS IS ON THE RIGHT UPPER ARM MIDLINE INTACT INFUSING NS AT 75 ML /HR. GTUBE INTACT. PLACEMENT CHECKED . NO FEEDING TILL THIS MOMENT. KEPT HEAD OF THE BED ELEVATED FOR ASPIRATION PRECAUTION. ALL SAFETY MEASURES IN PLACE. BED LOCKED IN THE LOWEST POSITION. CALL LIGHT IN REACH. WILL CONTINUE TO MONITOR.
[2022-04-14] MEDS: AMIODARONE HCL 200 MG TABLET GT SCH (14:33)
[2022-04-14] MEDS: DILTIAZEM HCL 30 MG TABLET GT SCH (17:57)
--- NOTE | 2022-04-14 18:45 | NUR ---
PLATE STACKER HAND CLOSING NOTES: PATIENT IS ALERT WITH OPEN EYES AND RESPONDS WHEN SPEAKING IN TRINIDADIAN LANGUAGE WITH NODDING HIS HEAD. NO PAIN NOTED. NO SOB NOTED. NO DISTRESS NOTED. ON COOL AEROSOL WITH FIO2 40 %. ON TELE MONITOR READING SR. WEISS CATHETER INTACT DRAINING YELLOW COLOR URINE. IV ACCESS IS ON THE RIGHT UPPER ARM MIDLINE INTACT INFUSING NS AT 75 ML /HR. GTUBE INTACT. PLACEMENT CHECKED . NO FEEDING TILL THIS MOMENT. KEPT HEAD OF THE BED ELEVATED FOR ASPIRATION PRECAUTION. ALL DUE MEDS GIVEN ORDERED.ALL SAFETY MEASURES IN PLACE. BED LOCKED IN THE LOWEST POSITION. CALL LIGHT IN REACH. WILL ENDORSE FOR LUIS FERNANDO.
--- NOTE | 2022-04-14 19:20 | NUR ---
RN opening notes Received Pt in bed resting comfortably. Pt is alert with open eyes and respond by nodding his head. Pt is on cool aerosol 5 L fio2 28%. No SOB. No S/S of distress noted. MICHELE midline is clean, intact and SL. Elizabeth cath is intact and draining yellow urine. Gtube is inplaced. Safety precautions is maintained. Bed at low position, brakes locked, side rails upX3, hob elevated, bed alarm is on and call light is within reach. Will continue to monitor.
--- NOTE | 2022-04-14 22:12 | NUR ---
RN notes Informed and notified Dr. Hampton regarding Gtube feeding. MD ordered to continue Gtube feeding Jevity 1.2 @ 70ml/hr. Ordered carry out
[2022-04-15] VITALS: BP 142/70
[2022-04-15] MEDS: DILTIAZEM HCL 30 MG TABLET GT SCH ×5 (00:24→23:23)
[2022-04-15 01:52] VITALS: BP 142/70
[2022-04-15 04:00] VITALS: BP_SYST 108; BP_SYST 118; BP_DIAS 58
[2022-04-15] MEDS: MEROPENEM 500 MG in IV NS 0.9% 50 ML IV SCH ×3 (05:13→20:43)
--- NOTE | 2022-04-15 06:35 | NUR ---
RN closing notes Pt in bed resting comfortably. Pt is alert with open eyes and respond by nodding his head. Pt is on cool aerosol 5 L fio2 28% with O2 sat is 98%. No SOB. No S/S of distress noted. VS is stable. Tele monitor showed SR hr at 67. MICHELE midline is clean, intact and infusing NS@ 75ml/hr. Elizabeth cath is intact and draining yellow urine 1000ml. Gtube is inplaced and running jevity 1.2 @ 70 ml/hr with 0 residual. Routine meds were given as ordered. Kept Pt clean, dry and comfortable. Safety precautions is maintained. Bed at low position, brakes locked, side rails upX3, hob elevated, bed alarm is on and call light is within reach. Will endorse to am nurse for LUIS FERNANDO.
[2022-04-15 06:50] LABS: BASOPHILS % (AUTO) 0.5 % (0.0-2.0); EOSINOPHILS % (AUTO) 1.9 % (0.0-6.0); HEMATOCRIT 33 % (39-51); HEMOGLOBIN 11.1 g/dL (13.5-17.5); LYMPHOCYTES # (AUTO) 0.6 K/uL (0.8-4.8); LYMPHOCYTES % (AUTO) 7.8 % (20.0-44.0); MEAN CORPUSCULAR HGB CONC 34 g/dl (31.0-36.0); MEAN CORPUSCULAR VOLUME 80 fL (80-96); MONOCYTES # (AUTO) 0.7 K/uL (0.1-1.30); NEUTROPHILS # (AUTO) 6.3 K/uL (1.8-8.9); NEUTROPHILS % (AUTO) 80.8 % (43.0-81.0); PLATELET COUNT (AUTO) 250 K/uL (150-450); RED BLOOD CELL COUNT(AUTO) 4.08 MIL/uL (4.5-6.0); WHITE BLOOD COUNT (AUTO) 7.8 K/uL (4.3-11.0)
[2022-04-15 08:23] LABS: CALCIUM, SERUM 8.3 mg/dL (8.5-10.1); CARBON DIOXIDE 27 mmol/L (21-32); CHLORIDE 102 mmol/L (98-107); CREATININE 0.9 mg/dL (0.6-1.3); GLUCOSE 122 mg/dL (74-106); MAGNESIUM 2.2 mg/dL (1.8-2.4); PHOSPHORUS 3.4 mg/dL (2.5-4.9); POTASSIUM 3.4 mmol/L (3.5-5.1); SODIUM SERUM 138 mmol/L (136-145); UREA NITROGEN, BLOOD 18 mg/dL (7-18)
--- NOTE | 2022-04-15 08:31 | NUR ---
TELE NR OPENING NOTE Patient in bed, awake; responds by nodding head. On O2 via trach at 5 LPM with cool aerosol at 28%. IV access on MICHELE midline infusing Ns at 75 ml/hr. Elizabeth catheter in place draining to a yellow colored urine. G-tube in place running Jevity 1.2 @ 70 ml/hr. On tele monitoring showing SR, HR on the 70's. Safety precautions in place: bed in low, locked position; siderails up x 2; call ight6 within reach. Will continue to monitor.
[2022-04-15] MEDS: AMIODARONE HCL 200 MG TABLET GT SCH (09:29)
[2022-04-15] MEDS: PANTOPRAZOLE 40 MG VIAL IV SCH (09:30)
[2022-04-15] MEDS: VANCOMYCIN 0.75 GM in IV D5W 250 ML IV SCH ×2 (10:44→21:56)
[2022-04-15] MEDS ORDERED: POTASSIUM CHLORIDE 20 MEQ POWDER PACKET NG SCH (13:30)
[2022-04-15] MEDS: IV NS 0.9% 1,000 ML IV PRN (14:36)
--- NOTE | 2022-04-15 16:50 | NUR ---
RN NOTE Redness noted on sacral area and left medial heel. Photos taken and placed in chart and wound care consult requested.
[2022-04-15] MEDS: JEVITY 1.2 CAL 1,000 ML BOTTLE GT PRN (17:26)
--- NOTE | 2022-04-15 18:53 | NUR ---
COOKY MACHINE OPERATOR CLOSING NOTES PATIENT IN BED AWAKE , VERBALLY RESPONSIVE , WITH TRACHOESTOMY , GTUBE FEEDING JEVITY 1.2 @70CC /H . MICHELE MIDLINE NS @75 ML/H, ,DUE MEDS GIVEN VIA GT AND IV ATB GIVEN ORDERED , NO SOB AND DISTRESS NOTED, , SUCTION DONE , ENDORSED TO NEXT SHIFT
--- NOTE | 2022-04-15 19:47 | NUR ---
received in bed alert good eye contact Trach TF Jevity infusing 70 ml Hr
[2022-04-15 20:00] VITALS: BP 164/75
[2022-04-15 22:24] VITALS: BP 164/74
[2022-04-16] VITALS: BP 150/79
[2022-04-16 04:00] VITALS: BP 135/87
[2022-04-16] MEDS: MEROPENEM 500 MG in IV NS 0.9% 50 ML IV SCH ×2 (04:59→12:10)
[2022-04-16] MEDS: JEVITY 1.2 CAL 1,000 ML BOTTLE GT PRN (05:00)
[2022-04-16] MEDS: IV NS 0.9% 1,000 ML IV PRN (05:10)
[2022-04-16] MEDS: DILTIAZEM HCL 30 MG TABLET GT SCH ×3 (05:29→16:57)
--- NOTE | 2022-04-16 05:49 | NUR ---
CLOSING NOTES: ALERT AND ORIENTATED X2 WILL MAKE HIS NEEDS KNOWN WITH GESTURS SLEPT THRU THE NIGHT ASP PRECAUTION D/[facility]15 VANCO TROUGH 13 PATIENT ON VANCO IV Q 12 HOURS SR ON TELE THIS 12 HOURS
[2022-04-16 07:16] LABS: BASOPHILS % (AUTO) 0.6 % (0.0-2.0); HEMATOCRIT 32 % (39-51); HEMOGLOBIN 10.6 g/dL (13.5-17.5); LYMPHOCYTES # (AUTO) 0.7 K/uL (0.8-4.8); MEAN CORPUSCULAR HGB CONC 33 g/dl (31.0-36.0); MEAN CORPUSCULAR VOLUME 80 fL (80-96); MONOCYTES # (AUTO) 0.6 K/uL (0.1-1.30); MONOCYTES % (AUTO) 8.9 % (2.0-12.0); NEUTROPHILS # (AUTO) 5.1 K/uL (1.8-8.9); NEUTROPHILS % (AUTO) 76.5 % (43.0-81.0); PLATELET COUNT (AUTO) 271 K/uL (150-450); RED BLOOD CELL COUNT(AUTO) 3.98 MIL/uL (4.5-6.0); WHITE BLOOD COUNT (AUTO) 6.7 K/uL (4.3-11.0)
--- NOTE | 2022-04-16 07:30 | NUR ---
CONSTRUCTION IRONWORKER MIGUEL ANGEL NOTES Patient in bed, awake; responds by nodding head. On O2 via trach at 5 LPM with cool aerosol at 28%. IV access on MICHELE midline infusing Ns at 75 ml/hr. Elizabeth catheter in place draining to a yellow colored urine. G-tube in place running Jevity 1.2 @ 70 ml/hr. High on bed at all times . On tele monitoring showing SR, HR on the 72's. Safety precautions in place: bed in low, locked position; siderails up x 2; . Will continue to monitor.
[2022-04-16 07:55] LABS: CALCIUM, SERUM 8.4 mg/dL (8.5-10.1); CREATININE 0.8 mg/dL (0.6-1.3); PHOSPHORUS 2.7 mg/dL (2.5-4.9); POTASSIUM 3.6 mmol/L (3.5-5.1)
[2022-04-16 08:00] VITALS: BP 168/77
--- NOTE | 2022-04-16 08:31 | NUR ---
WOUND CARE CONSULT: PT PRESENTS WITH SOME INCONTINENCE ASSOCIATED SKIN MOISTURE IN GLUTEAL CREASE AND BLANCHABLE REDNESS TO LEFT HEEL, PRESENT ON ADMISSION. RECOMMENDATIONS MADE FOR SKIN PROTECTION. DISCUSSED WITH NURSING STAFF. PT IS ON FIRST STEP ANA M HARP AIRSS MATTRESS. IN AGREEMENT WITH PLAN OF CARE.
[2022-04-16] MEDS: AMIODARONE HCL 200 MG TABLET GT SCH (08:56)
[2022-04-16] MEDS ORDERED: PANTOPRAZOLE 40 MG/PACK PACK NG SCH (09:00)
[2022-04-16] MEDS: VANCOMYCIN 0.75 GM in IV D5W 250 ML IV SCH (09:49)
[2022-04-16] MEDS ORDERED: SULF1TAB48 PO (11:57)
[2022-04-16 12:00] VITALS: BP 160/97
[2022-04-16 16:57] VITALS: BP 160/97
[2022-04-16] MEDS ORDERED: AMMONIUM LACTATE 227 GM BOTTLE TP SCH (17:00)
--- NOTE | 2022-04-16 17:00 | NUR ---
MS PERIPATOLOGIST NOTES PATIENT ON BED AWAKE A/OX2 , RESPONDS BY NODDING HEAD , WITH GT FEEDING OF JEVITY 1.2 @ 70CC /H, ALL DUE MEDS GIVEN VIA GT , IV ATB ORDERED , LABS WERE DONE WBC IMPROVED , BM X 2 SMALL , WEISS WITH WITH 1350 OUPUT NO SOB OR ANY DISTRESS NOTED , SINUS RHYTHM WITH 71 HR SEEN BY FREDY AND DR JAIME AND WITH ORDER TO DISCHARGE TO [facility] , DISCHARGE ORDER WERE NOTED AND CARRIED OUT , COVID ANTIGEN RAPID TESTING DONE AND WITH NEGATIVE RESULTS , PATIENT WAS TRANSFERRED TO SUBACUTE WITH RT AND BEDSIDE REPORT WAS GIVEN TO SUBACUTE RN BY BRIANA GAMEZ .
[2022-04-16] MEDS ORDERED: hydrALAZINE HCL 25 MG TABLET PO SCH (21:00)
== END 2022-04-16 18:34 | DRG 871 ==
LOC: ICU 19:24 → TELE 04-14 13:38 → UNDODISIN 04-16 17:00
PROVIDERS: ADMIT Nurse Practitioner Acute Care; ATTEND Nurse Practitioner Acute Care
DX: A41.9 Sepsis, unspecified organism (principal); G93.41 Metabolic encephalopathy; J96.21 Acute and chronic respiratory failure with hypoxia; E44.0 Moderate protein-calorie malnutrition; N39.0 Urinary tract infection, site not specified; I48.20 Chronic atrial fibrillation, unspecified; Z93.0 Tracheostomy status; I48.0 Paroxysmal atrial fibrillation; R13.10 Dysphagia, unspecified; I10 Essential (primary) hypertension; E78.5 Hyperlipidemia, unspecified; I25.10 Atherosclerotic heart disease of native coronary artery without angina pectoris; K21.9 Gastro-esophageal reflux disease without esophagitis; K44.9 Diaphragmatic hernia without obstruction or gangrene; Z85.46 Personal history of malignant neoplasm of prostate; D64.9 Anemia, unspecified; N40.0 Benign prostatic hyperplasia without lower urinary tract symptoms; L85.3 Xerosis cutis; L98.8 Other specified disorders of the skin and subcutaneous tissue; Z93.1 Gastrostomy status; Z20.822 Contact with and (suspected) exposure to COVID-19; Z86.14 Personal history of Methicillin resistant Staphylococcus aureus infection
CPT/HCPCS: 31720; 36415; 71045-TC; 80048-TC; 80053-TC; 80202-TC; 81001; 83735-TC; 84100-TC; 85025-TC; 87040-TC; 87070-TC; 87081-TC; 87086-TC; 87186-TC; 94640-TC; 94664-TC; 94760-TC; 94799-TC; A4623; C9113; G0378; J2185; J3370; J7030; J7050; J7060

== ENCOUNTER 2023-10-11 | Inpatient (IN) | payer MEDICARE, OTHER ==
[~2023-10-11] VITALS: Ht 170.2 cm; Wt 69.9 kg
[~2023-10-11] MED LIST changes: -APIX2.5T PO; +DILT30TA14 GT; -DILT30TA14 PO; +GUAI100S11 GT; +SULF1TAB48 PO; -[UNRECOGNIZED DRUG - SUPPLY] TD
[2023-10-12] VITALS (9 sets, daily range): BP systolic 100–102; BP diastolic 57–75; TEMP 98.1–98.6; O2SAT 18–99
[2023-10-12] MEDS: ASCORBIC ACID 500 MG TABLET GT SCH (09:00)
[2023-10-12] MEDS ORDERED: ALBUTEROL FS 2.5 MG/3 ML VIAL.NEB NEB PRN (09:00)
[2023-10-12] MEDS ORDERED: MAG HYDROX/AL HYDROX/SIMETH 30 ML UDC GT PRN (09:00)
[2023-10-12] MEDS: VITAMINS A AND D 56.7 GM TUBE TP SCH (09:00)
[2023-10-12] MEDS: LISINOPRIL (10MG) 10 MG TABLET GT SCH (09:00)
[2023-10-12] MEDS ORDERED: GUAIFENESIN 300 MG/15 ML UDC GT PRN (09:00)
[2023-10-12] MEDS: AMIODARONE HCL 200 MG TABLET GT SCH (09:00)
[2023-10-12] MEDS: VITS A AND D/WHITE PET/LANOLIN 5 GM PACKET TP SCH (09:00)
[2023-10-12] MEDS ORDERED: BISACODYL SUPP (10 MG) 10 MG/SUPP.RECT SUPP.RECT RC PRN (09:00)
[2023-10-12] MEDS: LEVETIRACETAM SOL (5 ML) 100 MG/ML UDC GT SCH (09:00)
[2023-10-12] MEDS: MULTIVIT W/MINERALS 1 TAB TABLET GT SCH (09:00)
[2023-10-12] MEDS: ACETAMINOPHEN 650 MG/20 ML UDC- SA PATIENTS-PAIN ONLY GT SCH (09:00)
[2023-10-12] MEDS: HYDROGEN PEROXIDE 480 ML BOTTLE TP SCH (09:13)
[2023-10-12] MEDS ORDERED: TUBERCULIN,PURIF.PROT.DERIV. 5 TU/0.1 ML VIAL ID SCH (09:30)
[2023-10-12] MEDS: DILTIAZEM HCL 30 MG TABLET GT SCH (12:00)
[2023-10-12] MEDS: IPRATROPIUM NEB FS 0.5 MG/2.5 ML AMPUL.NEB NEB SCH (12:50)
[2023-10-12] MEDS: ALBUTEROL FS 2.5 MG/0.5 ML VIAL.NEB NEB SCH (12:50)
[2023-10-12] MEDS: TERAZOSIN HCL 1 MG CAPSULE GT SCH (21:46)
[2023-10-12] MEDS: MELATONIN 3 MG TABLET GT SCH (21:46)
[2023-10-13] VITALS (13 sets, daily range): BP systolic 111–143; BP diastolic 62–81; TEMP 98.1–98.7; O2SAT 96–100
[2023-10-13] MEDS: JEVITY 1.2 CAL 1,000 ML BOTTLE GT PRN (03:48)
[2023-10-13] MEDS: OMEPRAZOLE 20 MG CAPSULE.DR GT SCH (05:37)
[2023-10-14] VITALS (13 sets, daily range): BP systolic 140–161; BP diastolic 72–78; TEMP 98.1–98.2; O2SAT 97–100
[2023-10-15] VITALS (12 sets, daily range): BP systolic 111–141; BP diastolic 56–74; TEMP 97.5–97.7; O2SAT 98–99
[2023-10-16] VITALS (13 sets, daily range): BP systolic 102–152; BP diastolic 58–75; TEMP 97.9–99; O2SAT 97–100
[2023-10-17] VITALS (13 sets, daily range): BP systolic 141–155; BP diastolic 65–81; TEMP 97.5–99; O2SAT 95–100
[2023-10-18] VITALS (12 sets, daily range): BP systolic 146–151; BP diastolic 65–84; TEMP 97.9–98.1; O2SAT 96–100
[2023-10-19] VITALS (14 sets, daily range): BP systolic 105–138; BP diastolic 76–81; TEMP 98.1–98.9; O2SAT 97–100
[2023-10-20] VITALS (11 sets, daily range): BP systolic 130–144; BP diastolic 79–81; TEMP 97.9–98.1; O2SAT 95–100
[2023-10-21] VITALS (13 sets, daily range): BP systolic 107–177; BP diastolic 69–90; TEMP 97.9–98.8; O2SAT 97–99
[2023-10-22] VITALS (12 sets, daily range): BP systolic 118–129; BP diastolic 72–89; TEMP 98.4–99.3; O2SAT 97–100
[2023-10-23] VITALS (14 sets, daily range): BP systolic 101–135; BP diastolic 78–79; TEMP 98.4–98.8; O2SAT 96–100
[2023-10-24] VITALS (12 sets, daily range): BP systolic 124–146; BP diastolic 59–100; TEMP 98–98.1; O2SAT 96–99
[2023-10-25] VITALS (14 sets, daily range): BP systolic 129–138; BP diastolic 62–82; TEMP 98–98.8; O2SAT 97–100
[2023-10-26] VITALS (12 sets, daily range): O2SAT 97–99
[2023-10-26] MEDS: NEOMY SULF/BACITRAC ZN/POLY 15 GM TUBE TP SCH (20:13)
[2023-10-27] VITALS (12 sets, daily range): BP systolic 145; BP diastolic 68; TEMP 98.1; O2SAT 97–99
[2023-10-28] VITALS (12 sets, daily range): BP systolic 110–140; BP diastolic 66–69; TEMP 97.6–98.8; O2SAT 97–100
[2023-10-28] MEDS: TUBERCULIN,PURIF.PROT.DERIV. 5 TU/0.1 ML VIAL ID SCH (18:00)
[2023-10-29] VITALS (13 sets, daily range): BP systolic 134–139; BP diastolic 59–87; TEMP 98.2; O2SAT 96–99
[2023-10-29] MEDS: Z GUARD REMEDY 4 OZ OINT TP SCH (09:28)
[2023-10-30] VITALS (12 sets, daily range): BP systolic 140–153; BP diastolic 69–85; TEMP 97.7–97.9; O2SAT 97–100
[2023-10-30] MEDS: JEVITY 1.2 CAL 1,000 ML BOTTLE GT PRN (06:09)
[2023-10-31] VITALS (11 sets, daily range): BP systolic 138–142; BP diastolic 67–100; TEMP 97.5–98.1; O2SAT 97–100
[2023-11-01] VITALS (12 sets, daily range): BP systolic 134–142; BP diastolic 62–95; TEMP 97.7–98; O2SAT 97–100
[2023-11-02] VITALS (14 sets, daily range): BP systolic 121–153; BP diastolic 51–89; TEMP 97.7–98.1; O2SAT 96–100
[2023-11-03] VITALS (12 sets, daily range): BP systolic 154; BP diastolic 98; TEMP 97.9; O2SAT 97–100
[2023-11-04] VITALS (12 sets, daily range): BP systolic 128–154; BP diastolic 65–78; TEMP 97.9–98.7; O2SAT 95–98
[2023-11-05] VITALS (13 sets, daily range): BP systolic 150–160; BP diastolic 71–88; TEMP 98–98.8; O2SAT 97–100
[2023-11-06] VITALS (12 sets, daily range): BP systolic 147; BP diastolic 78–89; TEMP 98.3–99; O2SAT 95–100
[2023-11-07] VITALS (14 sets, daily range): BP systolic 136–168; BP diastolic 64–77; TEMP 98–98.8; O2SAT 96–99
[2023-11-08] VITALS (13 sets, daily range): BP systolic 142–150; BP diastolic 71–75; TEMP 98.2–98.3; O2SAT 96–99
[2023-11-09] VITALS (13 sets, daily range): BP systolic 134–148; BP diastolic 79–90; TEMP 97.5–98.1; O2SAT 98–100
[2023-11-10] VITALS (12 sets, daily range): BP systolic 118–142; BP diastolic 65–80; TEMP 97.5–98.3; O2SAT 97–100
[2023-11-11] VITALS (12 sets, daily range): BP systolic 99–156; BP diastolic 53–67; TEMP 97.5–98.8; O2SAT 97–99
[2023-11-12] VITALS (12 sets, daily range): BP systolic 118–154; BP diastolic 52–96; TEMP 97.7; O2SAT 96–99
[2023-11-13] VITALS (11 sets, daily range): BP systolic 127–130; BP diastolic 66–84; TEMP 97.8–98.1; O2SAT 96–100
[2023-11-14] VITALS (13 sets, daily range): BP systolic 119–134; BP diastolic 77–92; TEMP 97.7–98.4; O2SAT 96–100
[2023-11-14] MEDS: HYDROGEN PEROXIDE 480 ML BOTTLE TP PRN (19:30)
[2023-11-15] VITALS (13 sets, daily range): BP systolic 144–155; BP diastolic 65–83; TEMP 97.7–98.1; O2SAT 95–99
[2023-11-15] MEDS: PNEUMOC 20-VAL CONJ-DIP CRM/PF 0.5 ML SYRINGE IM ONE (18:22)
[2023-11-16] VITALS (11 sets, daily range): BP systolic 107–177; BP diastolic 74–76; TEMP 97.9–99.3; O2SAT 97–99
[2023-11-17] VITALS (13 sets, daily range): BP systolic 136–145; BP diastolic 58–85; TEMP 98.2–98.7; O2SAT 97–100
[2023-11-18] VITALS (12 sets, daily range): BP systolic 142–159; BP diastolic 58–69; TEMP 98.1–98.6; O2SAT 96–100
[2023-11-19] VITALS (12 sets, daily range): BP systolic 128–161; BP diastolic 54; TEMP 98.2; O2SAT 97–100
[2023-11-20] VITALS (13 sets, daily range): BP systolic 131–147; BP diastolic 67–89; TEMP 97.9–99.1; O2SAT 97–99
[2023-11-21] VITALS (12 sets, daily range): BP systolic 137–139; BP diastolic 62–88; TEMP 97.9–98.6; O2SAT 95–99
[2023-11-22] VITALS (11 sets, daily range): BP systolic 125–130; BP diastolic 67–76; TEMP 97.9–98.8; O2SAT 97–99
[2023-11-23] VITALS (13 sets, daily range): BP systolic 105–145; BP diastolic 54–56; TEMP 98.1–98.4; O2SAT 96–99
[2023-11-24] VITALS (13 sets, daily range): BP systolic 141–146; BP diastolic 58–72; TEMP 97.5–98.2; O2SAT 96–99
[2023-11-25] VITALS (13 sets, daily range): BP systolic 128–166; BP diastolic 55–70; TEMP 97.9–99.1; O2SAT 97–100
[2023-11-26] VITALS (14 sets, daily range): BP systolic 133–164; BP diastolic 51–66; TEMP 97.9–98.2; O2SAT 96–99
[2023-11-26] MEDS ORDERED: METOCLOPRAMIDE HCL 5 MG TABLET GT SCH (13:00)
[2023-11-26] MEDS: METOCLOPRAMIDE HCL 5 MG TABLET GT SCH (18:09)
[2023-11-26] MEDS: DOCUSATE SODIUM LIQ 100 MG/10 ML UDC GT SCH (18:09)
[2023-11-26] MEDS: SENNOSIDES 8.6 MG TABLET GT SCH (21:15)
[2023-11-27] VITALS (12 sets, daily range): BP systolic 130–131; BP diastolic 56–79; TEMP 97.9–98.8; O2SAT 96–99
[2023-11-27] MEDS: JEVITY 1.2 CAL 1,000 ML BOTTLE GT PRN (05:34)
[2023-11-28] VITALS (12 sets, daily range): BP systolic 156; BP diastolic 83; TEMP 98.4; O2SAT 97–99
[2023-11-29] VITALS (10 sets, daily range): BP systolic 121–148; BP diastolic 59–61; TEMP 97.9–98.2; O2SAT 97–99
[2023-11-30] VITALS (12 sets, daily range): BP systolic 123–160; BP diastolic 61–95; TEMP 98.1; O2SAT 95–100
[2023-11-30] MEDS: JEVITY 1.5 CAL LIQUID 1,000 ML BOTTLE GT PRN (11:37)
[2023-12-01] VITALS (12 sets, daily range): BP systolic 148; BP diastolic 69; TEMP 97.7; O2SAT 96–99
[2023-12-01] MEDS: MAGNESIUM HYDROXIDE 30 ML UDC GT PRN (20:17)
[2023-12-02] VITALS (13 sets, daily range): BP systolic 116–138; BP diastolic 53–79; TEMP 97.9–98.3; O2SAT 96–100
[2023-12-02 07:25] LABS: BASOPHILS % (AUTO) 0.3 % (0.0-2.0); EOSINOPHILS # (AUTO) 0.2 K/uL (0.0-0.7); HEMATOCRIT 34 % (39-51); HEMOGLOBIN 11.5 g/dL (13.5-17.5); LYMPHOCYTES % (AUTO) 9.7 % (20.0-44.0); MEAN CORPUSCULAR HEMOGLOBIN 28 PG (26.0-33.0); MEAN CORPUSCULAR HGB CONC 34 g/dl (31.0-36.0); MEAN CORPUSCULAR VOLUME 83 fL (80-96); MONOCYTES # (AUTO) 0.9 K/uL (0.1-1.30); MONOCYTES % (AUTO) 8.1 % (2.0-12.0); NEUTROPHILS # (AUTO) 8.5 K/uL (1.8-8.9); NEUTROPHILS % (AUTO) 79.9 % (43.0-81.0); PLATELET COUNT (AUTO) 268 K/uL (150-450); RED BLOOD CELL COUNT(AUTO) 4.15 MIL/uL (4.5-6.0); RED CELL DISTRIBUTION WIDTH 14.6 % (11.5-15.0); WHITE BLOOD COUNT (AUTO) 10.6 K/uL (4.3-11.0)
[2023-12-02 07:50] LABS: CALCIUM, SERUM 9.1 mg/dL (8.5-10.1); CREATININE 1.1 mg/dL (0.6-1.3); POTASSIUM 4.1 mmol/L (3.5-5.1)
[2023-12-03] VITALS (14 sets, daily range): BP systolic 120–144; BP diastolic 65–95; TEMP 97.7–98.1; O2SAT 97–99
[2023-12-04] VITALS (13 sets, daily range): BP systolic 142–143; BP diastolic 71–79; TEMP 97.7–99; O2SAT 95–99
[2023-12-05] VITALS (11 sets, daily range): BP systolic 102; BP diastolic 52; TEMP 98.4; O2SAT 96–99
[2023-12-06] VITALS (10 sets, daily range): BP systolic 123; BP diastolic 73; TEMP 98.1; O2SAT 95–100
[2023-12-07] VITALS (14 sets, daily range): BP systolic 114–138; BP diastolic 61–62; TEMP 97.1–98.9; O2SAT 97–100
[2023-12-08] VITALS (14 sets, daily range): BP systolic 126–141; BP diastolic 62–65; TEMP 98.1–98.6; O2SAT 97–100
[2023-12-08] MEDS: ACETAMINOPHEN 650 MG/20 ML UDC- SA PATIENTS-PAIN ONLY GT PRN (17:33)
[2023-12-09] VITALS (13 sets, daily range): BP systolic 115–117; BP diastolic 61–71; TEMP 97.3–99; O2SAT 96–100
[2023-12-10] VITALS (15 sets, daily range): BP systolic 133–163; BP diastolic 68–75; TEMP 97.7–98.2; O2SAT 97–99
[2023-12-10] MEDS: METOCLOPRAMIDE HCL 10 MG TABLET GT SCH (20:11)
[2023-12-11] VITALS (14 sets, daily range): BP systolic 110–130; BP diastolic 59–78; TEMP 97.2–98.1; O2SAT 96–100
[2023-12-12] VITALS (13 sets, daily range): BP systolic 106–150; BP diastolic 56–72; TEMP 97.7–98.1; O2SAT 97–100
[2023-12-13] VITALS (12 sets, daily range): BP systolic 134–167; BP diastolic 58–94; TEMP 97.5–98.2; O2SAT 97–100
[2023-12-14] VITALS (12 sets, daily range): BP systolic 135–149; BP diastolic 66–69; TEMP 97.9–98.2; O2SAT 95–99
[2023-12-15] VITALS (12 sets, daily range): BP systolic 128–158; BP diastolic 56–67; TEMP 97.9–98.8; O2SAT 97–100
[2023-12-16] VITALS (13 sets, daily range): BP systolic 128–156; BP diastolic 48–57; TEMP 97.5–97.9; O2SAT 96–99
[2023-12-17] VITALS (13 sets, daily range): BP systolic 144–170; BP diastolic 67–69; TEMP 97.7–99.1; O2SAT 96–99
[2023-12-18] VITALS (11 sets, daily range): BP systolic 115; BP diastolic 79; TEMP 97.6; O2SAT 97–100
[2023-12-19] VITALS (13 sets, daily range): BP systolic 145–147; BP diastolic 76–95; TEMP 97.7–98.6; O2SAT 92–99
[2023-12-20] VITALS (12 sets, daily range): BP systolic 145–148; BP diastolic 54–73; TEMP 98.6–99; O2SAT 96–99
[2023-12-21] VITALS (13 sets, daily range): BP systolic 109–158; BP diastolic 79–86; TEMP 97.9–98.1; O2SAT 92–100
[2023-12-22] VITALS (15 sets, daily range): BP systolic 126–134; BP diastolic 62–79; TEMP 97.9–98.4; O2SAT 95–100
[2023-12-23] VITALS (12 sets, daily range): BP systolic 136–154; BP diastolic 63–67; TEMP 97.9–98.2; O2SAT 97–100
[2023-12-24] VITALS (14 sets, daily range): BP systolic 129–165; BP diastolic 66–69; TEMP 97.9–99.1; O2SAT 97–99
[2023-12-25] VITALS (14 sets, daily range): BP systolic 149–152; BP diastolic 62–79; TEMP 97.7–98.4; O2SAT 96–100
[2023-12-26] VITALS (14 sets, daily range): BP systolic 142–151; BP diastolic 77–104; TEMP 98.2; O2SAT 97–99
[2023-12-27] VITALS (13 sets, daily range): BP systolic 124–174; BP diastolic 66–73; TEMP 98.2–98.4; O2SAT 96–99
[2023-12-28] VITALS (13 sets, daily range): BP systolic 114–149; BP diastolic 68–78; TEMP 97.3–98.8; O2SAT 96–99
[2023-12-29] VITALS (11 sets, daily range): BP systolic 136–152; BP diastolic 66–89; TEMP 97.7–98.3; O2SAT 94–99
[2023-12-30] VITALS (12 sets, daily range): BP systolic 150–160; BP diastolic 73–86; TEMP 97.5–98.6; O2SAT 95–99
[2023-12-31] VITALS (12 sets, daily range): BP systolic 155–158; BP diastolic 55–81; TEMP 97.7–98.8; O2SAT 97–99
[2024-01-01] VITALS (13 sets, daily range): BP systolic 113–166; BP diastolic 58–86; TEMP 97.4–99; O2SAT 97–100
[2024-01-01] MEDS: METOCLOPRAMIDE HCL 10 MG/10 ML UDC GT SCH (21:04)
[2024-01-02] VITALS (13 sets, daily range): BP systolic 126–144; BP diastolic 68–81; TEMP 97.4–98.2; O2SAT 97–99
[2024-01-03] VITALS (12 sets, daily range): BP systolic 136–140; BP diastolic 70–97; TEMP 97.8–98.2; O2SAT 97–99
[2024-01-04] VITALS (13 sets, daily range): BP systolic 113–149; BP diastolic 69–87; TEMP 98.1; O2SAT 96–99
[2024-01-04] MEDS: COVID-19 VACC, SPIKEVAX /PF 50 MCG/0.5 ML VIAL/SYR IM ONE (18:47)
[2024-01-05] VITALS (12 sets, daily range): BP systolic 123; BP diastolic 58; TEMP 98.6; O2SAT 96–99
[2024-01-06] VITALS (11 sets, daily range): BP systolic 142; BP diastolic 66; TEMP 97.7; O2SAT 96–99
[2024-01-07] VITALS (13 sets, daily range): BP systolic 104–136; BP diastolic 58–85; TEMP 97.9–98.6; O2SAT 96–100
[2024-01-07] MEDS: ONDANSETRON 4 MG TAB.RAPDIS GT PRN (13:54)
[2024-01-08] VITALS (14 sets, daily range): BP systolic 107–142; BP diastolic 45–92; TEMP 97.6–98.1; O2SAT 94–98
[2024-01-08] MEDS: IV NS 0.9% 1,000 ML IV ONE (07:30)
[2024-01-08 09:07] LABS: BASOPHILS % (AUTO) 0.4 % (0.0-2.0); EOSINOPHILS # (AUTO) 0.1 K/uL (0.0-0.7); EOSINOPHILS % (AUTO) 1.2 % (0.0-6.0); HEMATOCRIT 35 % (39-51); HEMOGLOBIN 11.4 g/dL (13.5-17.5); LYMPHOCYTES % (AUTO) 11.7 % (20.0-44.0); MEAN CORPUSCULAR HEMOGLOBIN 28 PG (26.0-33.0); MEAN CORPUSCULAR HGB CONC 33 g/dl (31.0-36.0); MEAN CORPUSCULAR VOLUME 84 fL (80-96); MONOCYTES # (AUTO) 0.7 K/uL (0.1-1.30); MONOCYTES % (AUTO) 7.6 % (2.0-12.0); NEUTROPHILS # (AUTO) 6.9 K/uL (1.8-8.9); NEUTROPHILS % (AUTO) 79.1 % (43.0-81.0); PLATELET COUNT (AUTO) 228 K/uL (150-450); RED BLOOD CELL COUNT(AUTO) 4.12 MIL/uL (4.5-6.0); RED CELL DISTRIBUTION WIDTH 14.4 % (11.5-15.0); WHITE BLOOD COUNT (AUTO) 8.7 K/uL (4.3-11.0)
[2024-01-08 10:13] LABS: ALBUMIN 2.5 g/dL (3.4-5.0); BILIRUBIN,TOTAL 0.4 mg/dL (0.2-1.0); CALCIUM, SERUM 8.5 mg/dL (8.5-10.1); CREATININE 1.3 mg/dL (0.6-1.3); POTASSIUM 3.6 mmol/L (3.5-5.1); TOTAL PROTEIN, SERUM 6.5 g/dL (6.4-8.2)
[2024-01-08] MEDS: IV D5/ 0.9% NACL 1,000 ML IV PRN (12:56)
[2024-01-08] MEDS ORDERED: METRONIDAZOLE 500MG/ NS 100ML 500 MG in PREMIX 1 EA IV SCH (14:00)
[2024-01-08] MEDS: METRONIDAZOLE 500MG/ NS 100ML 500 MG in PREMIX 1 EA IV SCH (16:30)
[2024-01-08] MEDS: CEFTRIAXONE 1 G in IV D5W 50 ML IV SCH (17:45)
[2024-01-09] VITALS (14 sets, daily range): BP systolic 115–170; BP diastolic 69–87; TEMP 97.6–99.1; O2SAT 97–98
[2024-01-10] VITALS (11 sets, daily range): BP systolic 130; BP diastolic 81; TEMP 97.7; O2SAT 97–98
[2024-01-11] VITALS (12 sets, daily range): BP systolic 131–141; BP diastolic 74; TEMP 97.7–98.8; O2SAT 96–99
[2024-01-12] VITALS (13 sets, daily range): BP systolic 121–131; BP diastolic 60–79; TEMP 97.4–97.5; O2SAT 96–100
[2024-01-13] VITALS (16 sets, daily range): BP systolic 140–161; BP diastolic 61–82; TEMP 97.9–98.7; O2SAT 97–99
[2024-01-14] VITALS (16 sets, daily range): BP systolic 142–156; BP diastolic 70–85; TEMP 98–98.6; O2SAT 96–98
[2024-01-15] VITALS (13 sets, daily range): BP systolic 113–128; BP diastolic 57–70; TEMP 98.1–98.2; O2SAT 97–99
[2024-01-15] MEDS ORDERED: TWOCAL HN 1,000 ML LIQUID GT PRN (12:00)
[2024-01-16] VITALS (14 sets, daily range): BP systolic 140–142; BP diastolic 85–94; TEMP 97.7–98.2; O2SAT 97–100
[2024-01-16] MEDS: TWOCAL HN 1,000 ML LIQUID GT SCH (18:30)
[2024-01-17] VITALS (14 sets, daily range): BP systolic 116–169; BP diastolic 87–95; TEMP 97.7–98.4; O2SAT 97–100
[2024-01-18] VITALS (14 sets, daily range): BP systolic 118–142; BP diastolic 69–90; TEMP 98.1–98.2; O2SAT 95–99
[2024-01-18] MEDS ORDERED: TWOCAL HN 1,000 ML LIQUID GT SCH (10:51)
[2024-01-18] MEDS ORDERED: TWOCAL HN 1,000 ML LIQUID GT PRN (11:00)
[2024-01-18] MEDS: TWOCAL HN 1,000 ML LIQUID GT PRN (14:09)
[2024-01-19] VITALS (14 sets, daily range): BP systolic 113–147; BP diastolic 73–92; TEMP 97.3–98.2; O2SAT 96–100
[2024-01-20] VITALS (16 sets, daily range): BP systolic 124–150; BP diastolic 75–78; TEMP 97.7–99.1; O2SAT 97–100
[2024-01-21] VITALS (14 sets, daily range): BP systolic 109–110; BP diastolic 51–79; TEMP 97.9–98.1; O2SAT 96–99
[2024-01-22] VITALS (13 sets, daily range): BP systolic 105–123; BP diastolic 59–67; TEMP 98.1–98.4; O2SAT 97–100
[2024-01-23] VITALS (13 sets, daily range): BP systolic 148–149; BP diastolic 69–78; TEMP 97.8–98.3; O2SAT 97–100
[2024-01-24] VITALS (13 sets, daily range): BP systolic 121–138; BP diastolic 60–71; TEMP 98.2–98.6; O2SAT 97–100
[2024-01-25] VITALS (13 sets, daily range): BP systolic 115–136; BP diastolic 66–69; TEMP 97.9–98.1; O2SAT 97–99
[2024-01-26] VITALS (14 sets, daily range): BP systolic 117–123; BP diastolic 63–70; TEMP 97.4–98.5; O2SAT 94–100
[2024-01-27] VITALS (13 sets, daily range): BP systolic 96–153; BP diastolic 58–84; TEMP 97.9–98.8; O2SAT 96–99
[2024-01-27] MEDS ORDERED: METOCLOPRAMIDE HCL 10 MG/10 ML UDC GT PRN (12:17)
[2024-01-28] VITALS (13 sets, daily range): BP systolic 105–150; BP diastolic 55–74; TEMP 98.2–98.8; O2SAT 95–100
[2024-01-29] VITALS (13 sets, daily range): BP systolic 121–138; BP diastolic 68–74; TEMP 98.1–98.8; O2SAT 97–100
[2024-01-30] VITALS (14 sets, daily range): BP systolic 106–119; BP diastolic 60–67; TEMP 97.2–97.8; O2SAT 97–100
[2024-01-31] VITALS (14 sets, daily range): BP systolic 106–138; BP diastolic 58–82; TEMP 97.7–98.1; O2SAT 97–100
[2024-02-01] VITALS (14 sets, daily range): BP systolic 111–140; BP diastolic 62–63; TEMP 97.9–98.6; O2SAT 97–100
[2024-02-02] VITALS (14 sets, daily range): BP systolic 103; BP diastolic 83; TEMP 98; O2SAT 97–100
[2024-02-03] VITALS (13 sets, daily range): BP systolic 106–125; BP diastolic 46–79; TEMP 97.8–99; O2SAT 96–100
[2024-02-04] VITALS (13 sets, daily range): BP systolic 108–145; BP diastolic 66–79; TEMP 98.6–98.8; O2SAT 97–99
[2024-02-04] MEDS: POLYETHYLENE GLYCOL 3350 17 GM POWD.PACK GT PRN (20:15)
[2024-02-05] VITALS (13 sets, daily range): BP systolic 129–149; BP diastolic 75–76; TEMP 97.7–99.7; O2SAT 93–100
[2024-02-06] VITALS (13 sets, daily range): BP systolic 124–127; BP diastolic 54–65; TEMP 97.6–98.8; O2SAT 95–98
[2024-02-07] VITALS (13 sets, daily range): BP systolic 132–138; BP diastolic 57–88; TEMP 97.9–98.1; O2SAT 96–99
[2024-02-08] VITALS (13 sets, daily range): BP systolic 120; BP diastolic 55–78; TEMP 98.1; O2SAT 96–99
[2024-02-09] VITALS (15 sets, daily range): BP systolic 119; BP diastolic 69; TEMP 97; O2SAT 97–99
[2024-02-10] VITALS (16 sets, daily range): BP systolic 99–118; BP diastolic 52–74; TEMP 97.9–99; O2SAT 96–98
[2024-02-11] VITALS (16 sets, daily range): BP systolic 115–121; BP diastolic 66–67; TEMP 98.1–99; O2SAT 96–100
[2024-02-12] VITALS (14 sets, daily range): BP systolic 103–111; BP diastolic 66–69; TEMP 97.4–99.2; O2SAT 95–99
[2024-02-13] VITALS (13 sets, daily range): BP systolic 121–141; BP diastolic 85–90; TEMP 99.7–100.6; O2SAT 95–99
[2024-02-14] VITALS (13 sets, daily range): BP systolic 124; BP diastolic 88; TEMP 100.9; O2SAT 96–99
[2024-02-15] VITALS (12 sets, daily range): BP systolic 120–133; BP diastolic 89–95; TEMP 96.7–98.3; O2SAT 92–99
[2024-02-15] MEDS: IV NS 0.9% 1,000 ML IV ONE (08:30)
[2024-02-15] MEDS: ACETAMINOPHEN 650 MG/20 ML UDC- SA PATIENTS-FEVER ONLY GT PRN (15:38)
[2024-02-15 16:18] LABS: BASOPHILS % (AUTO) 0.2 % (0.0-2.0); HEMATOCRIT 34 % (39-51); HEMOGLOBIN 11.4 g/dL (13.5-17.5); LYMPHOCYTES # (AUTO) 0.5 K/uL (0.8-4.8); LYMPHOCYTES % (AUTO) 5.7 % (20.0-44.0); MEAN CORPUSCULAR HEMOGLOBIN 28 PG (26.0-33.0); MEAN CORPUSCULAR HGB CONC 34 g/dl (31.0-36.0); MEAN CORPUSCULAR VOLUME 84 fL (80-96); MONOCYTES # (AUTO) 0.5 K/uL (0.1-1.30); MONOCYTES % (AUTO) 6.6 % (2.0-12.0); NEUTROPHILS # (AUTO) 6.9 K/uL (1.8-8.9); NEUTROPHILS % (AUTO) 87.5 % (43.0-81.0); PLATELET COUNT (AUTO) 200 K/uL (150-450); RED BLOOD CELL COUNT(AUTO) 4.05 MIL/uL (4.5-6.0); WHITE BLOOD COUNT (AUTO) 7.9 K/uL (4.3-11.0)
[2024-02-15] MEDS ORDERED: DIATR MEGLU/DIATRIZOATE SODIUM 30 ML BOTTLE (GASTROGRAPHIN) ONE (17:49)
[2024-02-15] MEDS ORDERED: CLINDAMYCIN 600 MG in IV NS 0.9% 46 ML IV SCH (21:00)
[2024-02-15] MEDS: CEFEPIME 1 GM in IV D5W 50 ML IV SCH (21:00)
[2024-02-15] MEDS ORDERED: LEVOFLOXACIN 250 MG /D5W 50 ML 250 MG in PREMIX 1 EA IV SCH (22:00)
[2024-02-16 00:17] VITALS: O2SAT 92; O2SAT 94
[2024-02-16 06:49] LABS: ABG BASE EXCESS -4.6 mmol/L; ABG OXYGEN SATURATION 93.7 % (92.0-98.5); ABG PCO2 39.2 mmHg (35.0-45.0); ABG PH 7.342 (7.350-7.450); ABG PO2 74.2 mmHg (75.0-100.0); ABG TOTAL HEMOGLOBIN 12.2 G/dL (13.5-18.0); AaDO2 310.5 mmHg; COHb 0.2 % (0.5-1.5); MetHb 0.2 % (0.0-1.5); O2Hb 93.3 % (94.0-97.0); SITE, ABG Right Brachial
[2024-02-16 07:23] LABS: CALCIUM, SERUM 7.6 mg/dL (8.5-10.1); CARBON DIOXIDE 21 mmol/L (21-32); CHLORIDE 94 mmol/L (98-107); CREATININE 3.9 mg/dL (0.6-1.3); GLUCOSE 139 mg/dL (74-106); POTASSIUM 4.7 mmol/L (3.5-5.1); SODIUM SERUM 132 mmol/L (136-145); UREA NITROGEN, BLOOD 72 mg/dL (7-18)
[2024-02-16 07:48] VITALS: BP 57/37; O2SAT 98
[2024-02-16 07:49] VITALS: BP 57/36; TEMP 98.9; O2SAT 96
[2024-02-16 07:51] VITALS: BP 57/37; TEMP 99.3; O2SAT 96
[2024-02-16] MEDS ORDERED: LISI10TA29 GT (16:43)
[2024-02-16] MEDS ORDERED: DOCU100C36 GT (16:43)
[2024-02-16] MEDS ORDERED: SENN8.6T19 GT (16:43)
[2024-02-16] MEDS ORDERED: METO5SOL2 GT (16:43)
[2024-02-16] MEDS ORDERED: ONDA4TAB11 GT (16:43)
[2024-02-17 10:04] VITALS: O2SAT 94
== END 2024-02-16 13:00 | disposition short-term general hospital (02) | DRG 189 ==
LOC: SA → UNDOADMIN
PROVIDERS: ADMIT Internal Medicine; ATTEND Internal Medicine
DX: J96.11 Chronic respiratory failure with hypoxia (principal); G93.41 Metabolic encephalopathy; L89.153 Pressure ulcer of sacral region, stage 3; I13.0 Hypertensive heart and chronic kidney disease with heart failure and stage 1 through stage 4 chronic kidney disease, or unspecified chronic kidney disease; I50.32 Chronic diastolic (congestive) heart failure; G93.49 Other encephalopathy; R47.01 Aphasia; G93.1 Anoxic brain damage, not elsewhere classified; K56.7 Ileus, unspecified; K94.23 Gastrostomy malfunction; N39.0 Urinary tract infection, site not specified; J96.12 Chronic respiratory failure with hypercapnia; Z85.46 Personal history of malignant neoplasm of prostate; E78.5 Hyperlipidemia, unspecified; F03.90 Unspecified dementia, unspecified severity, without behavioral disturbance, psychotic disturbance, mood disturbance, and anxiety; G40.909 Epilepsy, unspecified, not intractable, without status epilepticus; I12.9 Hypertensive chronic kidney disease with stage 1 through stage 4 chronic kidney disease, or unspecified chronic kidney disease; I25.10 Atherosclerotic heart disease of native coronary artery without angina pectoris; I48.0 Paroxysmal atrial fibrillation; K21.9 Gastro-esophageal reflux disease without esophagitis; K44.9 Diaphragmatic hernia without obstruction or gangrene; N18.9 Chronic kidney disease, unspecified; N40.0 Benign prostatic hyperplasia without lower urinary tract symptoms; R13.10 Dysphagia, unspecified; I69.398 Other sequelae of cerebral infarction; Z20.822 Contact with and (suspected) exposure to COVID-19; I25.2 Old myocardial infarction; Z74.01 Bed confinement status; Z93.1 Gastrostomy status; I69.298 Other sequelae of other nontraumatic intracranial hemorrhage; Z93.0 Tracheostomy status; B35.3 Tinea pedis; D63.8 Anemia in other chronic diseases classified elsewhere; E88.09 Other disorders of plasma-protein metabolism, not elsewhere classified; I48.91 Unspecified atrial fibrillation
CPT/HCPCS: 31720; 36415; 36600; 71045-TC; 74018; 80048-TC; 80053-TC; 82962-TC; 85025-TC; 86580-TC; 87086-TC; 94003-TC; 94640-TC; 94760-TC; 94761-TC; 94762-TC; 94799-TC; A4216; A4217; A4223; A4623; A7526; J0692; J0696; J1953; J7030; J7060; J8597; Q9963

== ENCOUNTER 2024-02-16 08:21 | Inpatient (IN) | payer MEDICARE, OTHER ==
[~2024-02-16] VITALS: Ht 170.2 cm; Wt 73.5 kg
[2024-02-16] MEDS: IV NS 0.9% 1,000 ML BAG IV ONE (08:30)
[2024-02-16 08:38] LABS: BASOPHILS % (AUTO) 0.1 % (0.0-2.0); HEMATOCRIT 30 % (39-51); LYMPHOCYTES # (AUTO) 0.9 K/uL (0.8-4.8); MEAN CORPUSCULAR HEMOGLOBIN 28 PG (26.0-33.0); MEAN CORPUSCULAR HGB CONC 34 g/dl (31.0-36.0); MEAN CORPUSCULAR VOLUME 84 fL (80-96); MONOCYTES # (AUTO) 0.7 K/uL (0.1-1.30); MONOCYTES % (AUTO) 4.9 % (2.0-12.0); NEUTROPHILS # (AUTO) 13.8 K/uL (1.8-8.9); PLATELET COUNT (AUTO) 210 K/uL (150-450); RED BLOOD CELL COUNT(AUTO) 3.54 MIL/uL (4.5-6.0); WHITE BLOOD COUNT (AUTO) 15.5 K/uL (4.3-11.0)
[2024-02-16 08:44] LABS: CALCIUM, SERUM 7.5 mg/dL (8.5-10.1); CARBON DIOXIDE 22 mmol/L (21-32); CHLORIDE 95 mmol/L (98-107); CREATININE 3.9 mg/dL (0.6-1.3); GLUCOSE 140 mg/dL (74-106); POTASSIUM 4.4 mmol/L (3.5-5.1); SODIUM SERUM 133 mmol/L (136-145); UREA NITROGEN, BLOOD 75 mg/dL (7-18)
[2024-02-16 08:51] LABS: ALANINE AMINOTRANSFERASE 30 U/L (12-78); ALKALINE PHOSPHATASE 66 U/L (46-116); ASPARTATE AMINOTRANSFERASE 37 U/L (15-37); BILIRUBIN,DIRECT 0.1 mg/dL (0.0-0.2); BILIRUBIN,TOTAL 0.3 mg/dL (0.2-1.0); INR 0.97 (0.91-1.10); PARTIAL THROMBOPLASTIN TIME 29.9 SEC (24.3-34.3); PROTHROMBIN TIME 10.3 SECS (9.2-11.1); TOTAL PROTEIN, SERUM 6.8 g/dL (6.4-8.2)
[2024-02-16] MEDS: CEFEPIME 1 GM in IV D5W 50 ML IV ONE (08:52)
[2024-02-16 08:54] LABS: LACTIC ACID 3.5 mmol/L (0.4-2.0)
[2024-02-16] MEDS: VANCOMYCIN 1 GM in IV D5W 250 ML IV ONE (09:30)
[2024-02-16] MEDS ORDERED: NOREPINEPHRINE 8 MG in IV D5W 242 ML IV PRN (09:30)
[2024-02-16] MEDS ORDERED: MAG HYDROX/AL HYDROX/SIMETH 30 ML UDC GT PRN (11:30)
[2024-02-16] MEDS ORDERED: Medication Not On Formulary EA (Ondansetron Hcl (Zofran) 4 MG) GT PRN (11:30)
[2024-02-16] MEDS ORDERED: ONDANSETRON HCL/PF 4 MG/2 ML VIAL IVP PRN (11:30)
[2024-02-16] MEDS ORDERED: MAGNESIUM HYDROXIDE 30 ML UDC PO PRN (11:30)
[2024-02-16] MEDS ORDERED: POLYETHYLENE GLYCOL 3350 17 GM POWD.PACK GT PRN (11:30)
[2024-02-16] MEDS ORDERED: ALBUTEROL FS 2.5 MG/0.5 ML VIAL.NEB NEB PRN (11:30)
[2024-02-16] MEDS ORDERED: MAG HYDROX/AL HYDROX/SIMETH 30 ML UDC PO PRN (11:30)
[2024-02-16] MEDS ORDERED: Z GUARD REMEDY 4 OZ OINT TP PRN (11:30)
[2024-02-16] MEDS ORDERED: BISACODYL SUPP (10 MG) 10 MG/SUPP.RECT SUPP.RECT RC PRN (11:30)
[2024-02-16] MEDS: IV NS 0.9% 1,000 ML IV SCH (11:30)
[2024-02-16] MEDS ORDERED: MAGNESIUM HYDROXIDE 30 ML UDC GT PRN (11:30)
[2024-02-16] MEDS ORDERED: ALBUTEROL FS 2.5 MG/0.5 ML VIAL.NEB ONE (12:34)
[2024-02-16] MEDS: ALBUTEROL FS 2.5 MG/0.5 ML VIAL.NEB IH SCH (12:42)
[2024-02-16] MEDS: IV NS 0.9% 1,000 ML IV PRN (13:38)
[2024-02-16 16:00] VITALS: BP 92/43; TEMP 99.1; O2SAT 94
[2024-02-16] MEDS ORDERED: METO5SOL2 GT (16:43)
[2024-02-16] MEDS ORDERED: LISI10TA29 GT (16:43)
[2024-02-16] MEDS ORDERED: SENN8.6T19 GT (16:43)
[2024-02-16] MEDS ORDERED: ONDA4TAB11 GT (16:43)
[2024-02-16] MEDS ORDERED: DOCU100C36 GT (16:43)
[2024-02-16] MEDS ORDERED: TWOCAL HN 1,000 ML LIQUID GT PRN ×2 (18:00→18:30)
[2024-02-16] MEDS: TWOCAL HN 1,000 ML LIQUID GT PRN (19:02)
[2024-02-16 20:00] VITALS: BP 100/57; TEMP 98.1; O2SAT 97
[2024-02-16] MEDS: LEVETIRACETAM SOL (5 ML) 100 MG/ML UDC GT SCH (21:49)
[2024-02-16] MEDS: ACETAMINOPHEN 650 MG/20.3 ML UDC PO SCH (21:50)
[2024-02-16] MEDS: CEFEPIME 2 GM in IV D5W 100 ML IV SCH (21:50)
[2024-02-16] MEDS: TERAZOSIN HCL 1 MG CAPSULE GT SCH (21:50)
[2024-02-17] VITALS (7 sets, daily range): BP systolic 93–131; BP diastolic 47–63; TEMP 97.9–100; O2SAT 93–97
[2024-02-17] MEDS: ACETAMINOPHEN 650 MG/20.3 ML UDC GT PRN (00:20)
[2024-02-17] MEDS: IV NS 0.9% 1,000 ML IV STA (01:28)
[2024-02-17] MEDS: PANTOPRAZOLE 40 MG/PACK PACK NG SCH (05:11)
[2024-02-17 07:23] LABS: BASOPHILS % (AUTO) 0.1 % (0.0-2.0); HEMATOCRIT 26 % (39-51); HEMOGLOBIN 8.7 g/dL (13.5-17.5); LYMPHOCYTES # (AUTO) 0.3 K/uL (0.8-4.8); LYMPHOCYTES % (AUTO) 2.5 % (20.0-44.0); MEAN CORPUSCULAR HEMOGLOBIN 28 PG (26.0-33.0); MEAN CORPUSCULAR HGB CONC 33 g/dl (31.0-36.0); MEAN CORPUSCULAR VOLUME 85 fL (80-96); MONOCYTES # (AUTO) 0.4 K/uL (0.1-1.30); MONOCYTES % (AUTO) 3.2 % (2.0-12.0); NEUTROPHILS # (AUTO) 12.3 K/uL (1.8-8.9); NEUTROPHILS % (AUTO) 94.2 % (43.0-81.0); PLATELET COUNT (AUTO) 204 K/uL (150-450); RED BLOOD CELL COUNT(AUTO) 3.08 MIL/uL (4.5-6.0); WHITE BLOOD COUNT (AUTO) 13.1 K/uL (4.3-11.0)
[2024-02-17 08:04] LABS: CALCIUM, SERUM 6.7 mg/dL (8.5-10.1); CARBON DIOXIDE 18 mmol/L (21-32); CHLORIDE 101 mmol/L (98-107); CREATININE 3.5 mg/dL (0.6-1.3); GLUCOSE 131 mg/dL (74-106); PHOSPHORUS 3.4 mg/dL (2.5-4.9); POTASSIUM 3.8 mmol/L (3.5-5.1); SODIUM SERUM 134 mmol/L (136-145); UREA NITROGEN, BLOOD 78 mg/dL (7-18)
[2024-02-17] MEDS: AMIODARONE HCL 200 MG TABLET GT SCH (09:11)
[2024-02-17] MEDS: ASCORBIC ACID 500 MG TABLET GT SCH (09:11)
[2024-02-17] MEDS: IV D5/ 0.9% NACL 1,000 ML IV PRN (10:01)
[2024-02-17] MEDS: DIGOXIN INJ 0.5 MG/2 ML AMPUL IV STA (14:52)
[2024-02-17] MEDS: DIGOXIN INJ 0.5 MG/2 ML AMPUL IV ONE (20:29)
[2024-02-18] VITALS (7 sets, daily range): BP systolic 98–145; BP diastolic 59–78; TEMP 98.4–99.9; O2SAT 94–98
[2024-02-18 07:30] LABS: BASOPHILS % (AUTO) 0.3 % (0.0-2.0); EOSINOPHILS % (AUTO) 0.1 % (0.0-6.0); HEMATOCRIT 25 % (39-51); HEMOGLOBIN 8.5 g/dL (13.5-17.5); LYMPHOCYTES # (AUTO) 0.5 K/uL (0.8-4.8); LYMPHOCYTES % (AUTO) 5.3 % (20.0-44.0); MEAN CORPUSCULAR HEMOGLOBIN 29 PG (26.0-33.0); MEAN CORPUSCULAR HGB CONC 34 g/dl (31.0-36.0); MEAN CORPUSCULAR VOLUME 85 fL (80-96); MONOCYTES # (AUTO) 0.4 K/uL (0.1-1.30); MONOCYTES % (AUTO) 5.1 % (2.0-12.0); NEUTROPHILS # (AUTO) 7.7 K/uL (1.8-8.9); NEUTROPHILS % (AUTO) 89.2 % (43.0-81.0); PLATELET COUNT (AUTO) 202 K/uL (150-450); RED BLOOD CELL COUNT(AUTO) 2.98 MIL/uL (4.5-6.0); RED CELL DISTRIBUTION WIDTH 15.2 % (11.5-15.0); WHITE BLOOD COUNT (AUTO) 8.6 K/uL (4.3-11.0)
[2024-02-18 07:43] LABS: ALANINE AMINOTRANSFERASE 36 U/L (12-78); ALBUMIN 1.5 g/dL (3.4-5.0); ALKALINE PHOSPHATASE 62 U/L (46-116); ASPARTATE AMINOTRANSFERASE 41 U/L (15-37); BILIRUBIN,TOTAL 0.2 mg/dL (0.2-1.0); CALCIUM, SERUM 6.9 mg/dL (8.5-10.1); CARBON DIOXIDE 19 mmol/L (21-32); CHLORIDE 109 mmol/L (98-107); CREATININE 4.1 mg/dL (0.6-1.3); GLUCOSE 129 mg/dL (74-106); MAGNESIUM 1.9 mg/dL (1.8-2.4); PHOSPHORUS 3.3 mg/dL (2.5-4.9); SODIUM SERUM 141 mmol/L (136-145); TOTAL PROTEIN, SERUM 5.7 g/dL (6.4-8.2); UREA NITROGEN, BLOOD 78 mg/dL (7-18)
[2024-02-18 07:44] LABS: CREATINE KINASE, TOTAL 177 U/L (39-308)
[2024-02-18] MEDS ORDERED: VANCOMYCIN 750 MG in IV D5W 250 ML IV SCH (10:00)
[2024-02-18] MEDS: VANCOMYCIN 1 GM in IV D5W 250ml IV SCH (10:53)
[2024-02-19] VITALS (8 sets, daily range): BP systolic 124–148; BP diastolic 63–84; TEMP 98.4–100.4; O2SAT 96–98
[2024-02-19 08:13] LABS: BASOPHILS % (AUTO) 0.2 % (0.0-2.0); EOSINOPHILS % (AUTO) 0.2 % (0.0-6.0); HEMATOCRIT 27 % (39-51); HEMOGLOBIN 9.1 g/dL (13.5-17.5); LYMPHOCYTES # (AUTO) 0.4 K/uL (0.8-4.8); LYMPHOCYTES % (AUTO) 4.3 % (20.0-44.0); MEAN CORPUSCULAR HEMOGLOBIN 29 PG (26.0-33.0); MEAN CORPUSCULAR HGB CONC 33 g/dl (31.0-36.0); MEAN CORPUSCULAR VOLUME 85 fL (80-96); MONOCYTES # (AUTO) 0.6 K/uL (0.1-1.30); MONOCYTES % (AUTO) 5.7 % (2.0-12.0); NEUTROPHILS # (AUTO) 9.4 K/uL (1.8-8.9); NEUTROPHILS % (AUTO) 89.6 % (43.0-81.0); PLATELET COUNT (AUTO) 239 K/uL (150-450); RED BLOOD CELL COUNT(AUTO) 3.19 MIL/uL (4.5-6.0); RED CELL DISTRIBUTION WIDTH 15.9 % (11.5-15.0); WHITE BLOOD COUNT (AUTO) 10.5 K/uL (4.3-11.0)
[2024-02-19 08:48] LABS: CALCIUM, SERUM 6.8 mg/dL (8.5-10.1); CARBON DIOXIDE 18 mmol/L (21-32); CHLORIDE 108 mmol/L (98-107); CREATININE 4.3 mg/dL (0.6-1.3); GLUCOSE 133 mg/dL (74-106); POTASSIUM 3.5 mmol/L (3.5-5.1); SODIUM SERUM 138 mmol/L (136-145)
[2024-02-19 09:21] LABS: UREA NITROGEN, BLOOD 84 mg/dL (7-18)
[2024-02-19] MEDS: LORAZEPAM INJ 2 MG/ML VIAL IV PRN (16:22)
[2024-02-19] MEDS: ACETAMINOPHEN 650 MG/SUPP.RECT RC PRN (16:22)
[2024-02-19 20:11] LABS: OCCULT BLOOD STOOL POSITIVE (NEGATIVE)
[2024-02-20] VITALS (7 sets, daily range): BP systolic 133–161; BP diastolic 68–85; TEMP 97.9–99.9; O2SAT 96–100
[2024-02-20] MEDS: VANCOMYCIN 750 MG in IV D5W 250 ML IV SCH (09:02)
[2024-02-20 09:39] LABS: BASOPHILS % (AUTO) 0.2 % (0.0-2.0); HEMATOCRIT 26 % (39-51); HEMOGLOBIN 8.7 g/dL (13.5-17.5); LYMPHOCYTES # (AUTO) 0.4 K/uL (0.8-4.8); LYMPHOCYTES % (AUTO) 3.1 % (20.0-44.0); MEAN CORPUSCULAR HEMOGLOBIN 28 PG (26.0-33.0); MEAN CORPUSCULAR HGB CONC 33 g/dl (31.0-36.0); MEAN CORPUSCULAR VOLUME 83 fL (80-96); MONOCYTES # (AUTO) 0.6 K/uL (0.1-1.30); MONOCYTES % (AUTO) 5.1 % (2.0-12.0); NEUTROPHILS # (AUTO) 11.3 K/uL (1.8-8.9); NEUTROPHILS % (AUTO) 91.6 % (43.0-81.0); PLATELET COUNT (AUTO) 256 K/uL (150-450); RED BLOOD CELL COUNT(AUTO) 3.13 MIL/uL (4.5-6.0); RED CELL DISTRIBUTION WIDTH 15.9 % (11.5-15.0); WHITE BLOOD COUNT (AUTO) 12.3 K/uL (4.3-11.0)
[2024-02-20 10:06] LABS: PTH, INTACT 112 pg/mL (15-65)
[2024-02-20 11:19] LABS: CALCIUM, SERUM 7.4 mg/dL (8.5-10.1); CARBON DIOXIDE 14 mmol/L (21-32); CHLORIDE 113 mmol/L (98-107); CREATININE 4.5 mg/dL (0.6-1.3); GLUCOSE 137 mg/dL (74-106); POTASSIUM 3.3 mmol/L (3.5-5.1); SODIUM SERUM 143 mmol/L (136-145); UREA NITROGEN, BLOOD 78 mg/dL (7-18)
[2024-02-20] MEDS: METOPROLOL TARTRATE INJ 5 MG/5 ML AMPUL IVP PRN (20:44)
[2024-02-21] VITALS: BP 158/60; TEMP 97.9; O2SAT 100
[2024-02-21 04:00] VITALS: BP 143/94; TEMP 97.9; O2SAT 96
[2024-02-21 07:13] LABS: BASOPHILS % (AUTO) 0.2 % (0.0-2.0); HEMATOCRIT 28 % (39-51); HEMOGLOBIN 9.4 g/dL (13.5-17.5); LYMPHOCYTES # (AUTO) 0.3 K/uL (0.8-4.8); LYMPHOCYTES % (AUTO) 2.1 % (20.0-44.0); MEAN CORPUSCULAR HEMOGLOBIN 28 PG (26.0-33.0); MEAN CORPUSCULAR HGB CONC 33 g/dl (31.0-36.0); MEAN CORPUSCULAR VOLUME 84 fL (80-96); MONOCYTES # (AUTO) 0.8 K/uL (0.1-1.30); MONOCYTES % (AUTO) 4.8 % (2.0-12.0); NEUTROPHILS # (AUTO) 15.1 K/uL (1.8-8.9); NEUTROPHILS % (AUTO) 92.9 % (43.0-81.0); PLATELET COUNT (AUTO) 297 K/uL (150-450); RED BLOOD CELL COUNT(AUTO) 3.37 MIL/uL (4.5-6.0); RED CELL DISTRIBUTION WIDTH 16.5 % (11.5-15.0); WHITE BLOOD COUNT (AUTO) 16.2 K/uL (4.3-11.0)
[2024-02-21 07:52] LABS: CALCIUM, SERUM 7.6 mg/dL (8.5-10.1); CARBON DIOXIDE 13 mmol/L (21-32); CHLORIDE 112 mmol/L (98-107); CREATININE 4.6 mg/dL (0.6-1.3); GLUCOSE 163 mg/dL (74-106); POTASSIUM 3.2 mmol/L (3.5-5.1); SODIUM SERUM 141 mmol/L (136-145)
[2024-02-21 07:59] LABS: UREA NITROGEN, BLOOD 85 mg/dL (7-18)
[2024-02-21 08:00] VITALS: BP 163/71; TEMP 99; O2SAT 95
[2024-02-21] MEDS ORDERED: SILVER NITRATE APPLICATOR 1 EA BOX TP SCH (11:00)
[2024-02-21] MEDS: PANTOPRAZOLE 40 MG VIAL IV SCH (11:52)
[2024-02-21 12:00] VITALS: BP 125/61; TEMP 97.4; O2SAT 94
[2024-02-21 13:03] LABS: APPEARANCE,URINE CLEAR (CLEAR); BILIRUBIN,URINE NEGATIVE (NEGATIVE); BLOOD, URINE 1+ Ery/uL (NEGATIVE); COLOR,URINE YELLOW (YELLOW); KETONES,URINE NEGATIVE (NEGATIVE); LEUKOCYTE ESTERASE ,URINE 1+ (NEGATIVE); NITRITE, URINE NEGATIVE (NEGATIVE); PROTEIN,URINE 1+ mg/dl (NEGATIVE); UGLUCOSE NEGATIVE (NEGATIVE); UROBILINOGEN,URINE 0.2 EU/dL (0.2)
[2024-02-21 13:06] LABS: ADD URINE CULTURE YES; BACTERIA,URINE Few /HPF (None Seen); EOSINOPHIL,URINE None Seen; SQUAMOUS EPITHELIAL CELL,UR Few /HPF (None Seen)
[2024-02-21 13:09] LABS: *SPE A/G RATIO 0.6 (0.7-1.7); *SPE ALBUMIN 1.9 g/dL (2.9-4.4); *SPE ALPHA-1-GLOBULIN 0.5 g/dL (0.0-0.4); *SPE ALPHA-2-GLOBULIN 1.1 g/dL (0.4-1.0); *SPE BETA GLOBULIN 0.9 g/dL (0.7-1.3); *SPE GLOBULIN, TOTAL 3.2 g/dL (2.2-3.9); *SPE M-SPIKE Not Observed g/dL (Not Observed); *SPE PROTEIN TOTAL 5.1 g/dL (6.0-8.5); *SPEGAMMA GLOBULIN 0.7 g/dL (0.4-1.8)
[2024-02-21 13:18] LABS: CREATININE, URINE 35.2 MG/DL (30.0-125.0)
[2024-02-21 16:00] VITALS: BP 129/87; TEMP 97.2; O2SAT 96
[2024-02-21 20:00] VITALS: BP 164/62; TEMP 98.6; O2SAT 96
[2024-02-22] VITALS: BP 159/69; TEMP 98.6; O2SAT 96
[2024-02-22 04:00] VITALS: BP 157/88; TEMP 98.1; O2SAT 96
[2024-02-22 08:42] VITALS: BP 140/90; TEMP 97.5; O2SAT 99
[2024-02-22 12:28] VITALS: BP 143/91; TEMP 97.3; O2SAT 98
[2024-02-22 16:00] VITALS: BP 134/88; TEMP 97.5; O2SAT 98
[2024-02-22] MEDS: MEROPENEM 500 MG in IV NS 0.9% 50 ML IV SCH (18:34)
[2024-02-22 20:00] VITALS: BP 135/64; TEMP 97.8; O2SAT 98
[2024-02-22] MEDS: VANCOMYCIN 750 MG in IV D5W 250 ML IV SCH (22:03)
[2024-02-23] VITALS: BP 124/68; TEMP 97.9; O2SAT 97
[2024-02-23 01:25] LABS: BILIRUBIN,URINE NEGATIVE (NEGATIVE); BLOOD, URINE 2+ Ery/uL (NEGATIVE); COLOR,URINE YELLOW (YELLOW); KETONES,URINE NEGATIVE (NEGATIVE); LEUKOCYTE ESTERASE ,URINE 2+ (NEGATIVE); NITRITE, URINE NEGATIVE (NEGATIVE); PH,URINE 6.5 (5.0-8.0); PROTEIN,URINE 2+ mg/dl (NEGATIVE); UGLUCOSE NEGATIVE (NEGATIVE); UROBILINOGEN,URINE 0.2 EU/dL (0.2)
[2024-02-23 01:27] LABS: APPEARANCE,URINE HAZY (CLEAR)
[2024-02-23 01:59] LABS: ADD URINE CULTURE YES; BACTERIA,URINE Moderate /HPF (None Seen); SQUAMOUS EPITHELIAL CELL,UR Few /HPF (None Seen)
[2024-02-23 02:02] LABS: COARSE GRANULAR CASTS,URINE Few /LPF (None Seen)
[2024-02-23 04:00] VITALS: BP 116/60; TEMP 97.5; O2SAT 96
[2024-02-23 06:10] LABS: COMPLEMENT C3, SERUM 157 mg/dL (82-167); COMPLEMENT C4, SERUM 33 mg/dL (12-38)
[2024-02-23 07:11] LABS: *ANA ANTI-CENTROMERE B AB <0.2 AI (0.0-0.9); *ANA ANTI-DNA(DS) AB, QN <1 IU/mL (0-9); *ANA ANTI-JO-1 <0.2 AI (0.0-0.9); *ANA ANTICHROMATIN ANTIBODY <0.2 AI (0.0-0.9); *ANA RNP ANTIBODIES 2.2 AI (0.0-0.9); *ANA SJOGREN'S ANTI-SS-A <0.2 AI (0.0-0.9); *ANA SJOGREN'S ANTI-SS-B <0.2 AI (0.0-0.9); *ANAANTI-SCLERODERMA-70 AB <0.2 AI (0.0-0.9); *ANASMITH AB <0.2 AI (0.0-0.9)
[2024-02-23 07:17] LABS: BASOPHILS % (AUTO) 0.1 % (0.0-2.0); EOSINOPHILS % (AUTO) 0.1 % (0.0-6.0); HEMATOCRIT 28 % (39-51); HEMOGLOBIN 9.4 g/dL (13.5-17.5); LYMPHOCYTES # (AUTO) 0.3 K/uL (0.8-4.8); LYMPHOCYTES % (AUTO) 1.1 % (20.0-44.0); MEAN CORPUSCULAR HEMOGLOBIN 28 PG (26.0-33.0); MEAN CORPUSCULAR HGB CONC 33 g/dl (31.0-36.0); MEAN CORPUSCULAR VOLUME 84 fL (80-96); MONOCYTES # (AUTO) 0.9 K/uL (0.1-1.30); MONOCYTES % (AUTO) 3.7 % (2.0-12.0); NEUTROPHILS # (AUTO) 22.3 K/uL (1.8-8.9); PLATELET COUNT (AUTO) 348 K/uL (150-450); RED BLOOD CELL COUNT(AUTO) 3.39 MIL/uL (4.5-6.0); WHITE BLOOD COUNT (AUTO) 23.4 K/uL (4.3-11.0)
[2024-02-23 08:00] VITALS: BP 119/60; TEMP 97.5; O2SAT 96
[2024-02-23 08:06] LABS: HEPATITIS B SURFACE AB Non Reactive (.)
[2024-02-23 08:21] LABS: LACTIC ACID 1.4 mmol/L (0.4-2.0)
[2024-02-23 08:35] LABS: ALANINE AMINOTRANSFERASE 12 U/L (12-78); ALKALINE PHOSPHATASE 73 U/L (46-116); ASPARTATE AMINOTRANSFERASE 16 U/L (15-37); BILIRUBIN,TOTAL 0.2 mg/dL (0.2-1.0); CALCIUM, SERUM 8.5 mg/dL (8.5-10.1); CARBON DIOXIDE 14 mmol/L (21-32); CHLORIDE 120 mmol/L (98-107); CREATININE 4.8 mg/dL (0.6-1.3); GLUCOSE 134 mg/dL (74-106); MAGNESIUM 1.8 mg/dL (1.8-2.4); PHOSPHORUS 4.9 mg/dL (2.5-4.9); POTASSIUM 2.9 mmol/L (3.5-5.1); SODIUM SERUM 149 mmol/L (136-145); TOTAL PROTEIN, SERUM 5.9 g/dL (6.4-8.2)
[2024-02-23 08:38] LABS: C-REACTIVE PROTEIN 20.31 mg/dL (0.0-0.30)
[2024-02-23 08:39] LABS: UREA NITROGEN, BLOOD 88 mg/dL (7-18)
[2024-02-23 08:40] LABS: ALBUMIN 1.1 g/dL (3.4-5.0)
[2024-02-23] MEDS: LEVETIRACETAM (500MG) 1,000 MG in IV NS 0.9% 90 ML IV SCH (10:12)
[2024-02-23] MEDS: DIGOXIN INJ 0.5 MG/2 ML AMPUL IV ONE (11:08)
[2024-02-23] MEDS: POTASSIUM CL. PREMIX PERIPHER. 50 ML IV SCH (11:22)
[2024-02-23 12:00] VITALS: BP 123/63; TEMP 97.3; O2SAT 96
[2024-02-23] MEDS: DIGOXIN INJ 0.5 MG/2 ML AMPUL IV SCH (12:00)
[2024-02-23 15:16] LABS: ANISOCYTOSIS 1+; BAND % (MANUAL) 3 % (0.0-5.0); LYMPHOCYTES % (MANUAL) 1 % (16-48); MONOCYTES % (MANUAL) 2 % (0-11.0); NEUTROPHILS % (MANUAL) 94 (42-76)
[2024-02-23 15:20] LABS: ERYTHROCYTE SEDIMENTATION RATE > 130 MM/HR (0-20)
[2024-02-23 16:00] VITALS: BP 105/45; TEMP 97.3; O2SAT 96
[2024-02-23] MEDS ORDERED: DOSING PER PHARMACY-TOBRA INHALATION 1 EA INH PRN ×2 (18:00→20:36)
[2024-02-23] MEDS: VANCOMYCIN HCL 125 MG/2.5 ML ORAL.SUSP PO SCH (18:00)
[2024-02-23] MEDS: MISCELLANEOUS MED 1 EA EA IV ONE (18:11)
[2024-02-23] MEDS: METRONIDAZOLE 500MG/ NS 100ML 500 MG in PREMIX 1 EA IV SCH (18:46)
[2024-02-23] MEDS ORDERED: D5W IV SCH (19:00)
[2024-02-23] MEDS ORDERED: TOBRAMYCIN IV SCH (19:00)
[2024-02-23 20:00] VITALS: BP 122/55; TEMP 97.9; O2SAT 96
[2024-02-23] MEDS ORDERED: TOBRAMYCIN 80 MG/2 ML VIAL INH SCH (20:00)
[2024-02-23] MEDS: CEFTAZIDIME/AVIBACTAM 0.94 GM in IV NS 0.9% 100 ML IV SCH (20:44)
[2024-02-24] VITALS: BP 112/63; TEMP 97.5; O2SAT 96
[2024-02-24 04:00] VITALS: BP 112/52; TEMP 97.5; O2SAT 93
[2024-02-24 08:00] VITALS: BP 121/77; TEMP 98.3; O2SAT 94
[2024-02-24 08:34] LABS: LACTIC ACID 0.9 mmol/L (0.4-2.0)
[2024-02-24 10:01] LABS: BASOPHILS % (AUTO) 0.1 % (0.0-2.0); EOSINOPHILS % (AUTO) 0.1 % (0.0-6.0); HEMATOCRIT 28 % (39-51); HEMOGLOBIN 9.1 g/dL (13.5-17.5); LYMPHOCYTES # (AUTO) 0.2 K/uL (0.8-4.8); LYMPHOCYTES % (AUTO) 0.8 % (20.0-44.0); MEAN CORPUSCULAR HEMOGLOBIN 28 PG (26.0-33.0); MEAN CORPUSCULAR HGB CONC 33 g/dl (31.0-36.0); MEAN CORPUSCULAR VOLUME 85 fL (80-96); MONOCYTES # (AUTO) 0.8 K/uL (0.1-1.30); MONOCYTES % (AUTO) 2.9 % (2.0-12.0); NEUTROPHILS # (AUTO) 26.2 K/uL (1.8-8.9); NEUTROPHILS % (AUTO) 96.1 % (43.0-81.0); PLATELET COUNT (AUTO) 287 K/uL (150-450); RED CELL DISTRIBUTION WIDTH 16.8 % (11.5-15.0); WHITE BLOOD COUNT (AUTO) 27.2 K/uL (4.3-11.0)
[2024-02-24 10:42] LABS: APPEARANCE,URINE CLEAR (CLEAR); BILIRUBIN,URINE NEGATIVE (NEGATIVE); BLOOD, URINE 1+ Ery/uL (NEGATIVE); COLOR,URINE YELLOW (YELLOW); KETONES,URINE NEGATIVE (NEGATIVE); LEUKOCYTE ESTERASE ,URINE TRACE (NEGATIVE); NITRITE, URINE NEGATIVE (NEGATIVE); PROTEIN,URINE 1+ mg/dl (NEGATIVE); UGLUCOSE NEGATIVE (NEGATIVE); UROBILINOGEN,URINE 0.2 EU/dL (0.2)
[2024-02-24 10:47] LABS: ALANINE AMINOTRANSFERASE 12 U/L (12-78); ALKALINE PHOSPHATASE 84 U/L (46-116); ASPARTATE AMINOTRANSFERASE 17 U/L (15-37); BILIRUBIN,TOTAL 0.1 mg/dL (0.2-1.0); CALCIUM, SERUM 8.4 mg/dL (8.5-10.1); CARBON DIOXIDE 13 mmol/L (21-32); CHLORIDE 120 mmol/L (98-107); CREATININE 4.8 mg/dL (0.6-1.3); GLUCOSE 137 mg/dL (74-106); MAGNESIUM 1.9 mg/dL (1.8-2.4); PHOSPHORUS 5.1 mg/dL (2.5-4.9); POTASSIUM 3.5 mmol/L (3.5-5.1); SODIUM SERUM 150 mmol/L (136-145); TOTAL PROTEIN, SERUM 5.7 g/dL (6.4-8.2)
[2024-02-24 10:52] LABS: UREA NITROGEN, BLOOD 89 mg/dL (7-18)
[2024-02-24 10:55] LABS: ALBUMIN 1.1 g/dL (3.4-5.0)
[2024-02-24 11:11] LABS: ADD URINE CULTURE NO; BACTERIA,URINE Rare /HPF (None Seen); SQUAMOUS EPITHELIAL CELL,UR Few /HPF (None Seen); WBC,URINE 0-2 /HPF (0-3)
[2024-02-24 12:00] VITALS: BP 107/53; TEMP 97.5; O2SAT 92
[2024-02-24 12:45] LABS: BAND % (MANUAL) 2 % (0.0-5.0); LYMPHOCYTES % (MANUAL) 1 % (16-48); MONOCYTES % (MANUAL) 2 % (0-11.0); NEUTROPHILS % (MANUAL) 95 (42-76); PLATELET ESTIMATE ADEQUATE
[2024-02-24 12:46] LABS: ANISOCYTOSIS 1+
[2024-02-24] MEDS: COLISTIMETHATE SODIUM 150 MG CBA VIAL NEB SCH (14:55)
[2024-02-24 16:00] VITALS: BP 111/59; TEMP 97.9; O2SAT 92
[2024-02-24 20:00] VITALS: BP 101/66; TEMP 97.5; O2SAT 100
[2024-02-24] MEDS ORDERED: TOBRAMYCIN 80 MG/2 ML VIAL INH SCH (20:30)
[2024-02-25] VITALS: BP 116/97; TEMP 97.8; O2SAT 93
[2024-02-25 04:00] VITALS: BP 112/92; TEMP 97.3; O2SAT 97
[2024-02-25 08:00] VITALS: BP 99/54; TEMP 97.3; O2SAT 97
[2024-02-25 09:00] VITALS: BP 99/54
[2024-02-25] MEDS ORDERED: IV D5/0.45 NACL 500 ML IV ONE (10:00)
== END 2024-02-25 10:12 | DRG 870 ==
LOC: ER 08:30 → ICU 10:02 → TELE1 12:29 → TELE-TD 12:39 → TELE1 02-17 11:14
PROVIDERS: ADMIT Internal Medicine; ATTEND Internal Medicine
PROC: 5A1955Z Respiratory Ventilation, Greater than 96 Consecutive Hours (ICD-10-PCS; principal; 2024-02-16)
DX: A41.9 Sepsis, unspecified organism (principal); L89.153 Pressure ulcer of sacral region, stage 3; J15.69 Pneumonia due to other Gram-negative bacteria; E43 Unspecified severe protein-calorie malnutrition; G93.41 Metabolic encephalopathy; J96.21 Acute and chronic respiratory failure with hypoxia; R53.2 Functional quadriplegia; N17.0 Acute kidney failure with tubular necrosis; R65.21 Severe sepsis with septic shock; K94.22 Gastrostomy infection; L03.311 Cellulitis of abdominal wall; Z99.11 Dependence on respirator [ventilator] status; K31.6 Fistula of stomach and duodenum; E87.20 Acidosis, unspecified; E87.1 Hypo-osmolality and hyponatremia; J95.851 Ventilator associated pneumonia; C79.51 Secondary malignant neoplasm of bone; K94.23 Gastrostomy malfunction; Z79.899 Other long term (current) drug therapy; Z66 Do not resuscitate; Y84.8 Other medical procedures as the cause of abnormal reaction of the patient, or of later complication, without mention of misadventure at the time of the procedure; E78.5 Hyperlipidemia, unspecified; I11.0 Hypertensive heart disease with heart failure; I50.9 Heart failure, unspecified; E11.9 Type 2 diabetes mellitus without complications; R13.10 Dysphagia, unspecified; G40.909 Epilepsy, unspecified, not intractable, without status epilepticus; Z86.73 Personal history of transient ischemic attack (TIA), and cerebral infarction without residual deficits; I48.91 Unspecified atrial fibrillation; K21.9 Gastro-esophageal reflux disease without esophagitis; Z85.46 Personal history of malignant neoplasm of prostate; Z87.440 Personal history of urinary (tract) infections; Y95 Nosocomial condition; R57.1 Hypovolemic shock; Z87.19 Personal history of other diseases of the digestive system; M89.8X9 Other specified disorders of bone, unspecified site; N40.0 Benign prostatic hyperplasia without lower urinary tract symptoms; I48.0 Paroxysmal atrial fibrillation; I25.2 Old myocardial infarction; I25.10 Atherosclerotic heart disease of native coronary artery without angina pectoris; F03.90 Unspecified dementia, unspecified severity, without behavioral disturbance, psychotic disturbance, mood disturbance, and anxiety; E88.09 Other disorders of plasma-protein metabolism, not elsewhere classified; B35.3 Tinea pedis; D64.9 Anemia, unspecified; E86.1 Hypovolemia; Y84.9 Medical procedure, unspecified as the cause of abnormal reaction of the patient, or of later complication, without mention of misadventure at the time of the procedure; Y92.129 Unspecified place in nursing home as the place of occurrence of the external cause; Z88.1 Allergy status to other antibiotic agents; Z88.3 Allergy status to other anti-infective agents; Z79.51 Long term (current) use of inhaled steroids; I49.9 Cardiac arrhythmia, unspecified
CPT/HCPCS: 31720; 36415; 71045-TC; 76770-TC; 80048-TC; 80053-TC; 80076-TC; 80202-TC; 81001; 82272-TC; 82550-TC; 82570-TC; 82962-TC; 83605-TC; 83735-TC; 83970; 84100-TC; 84155; 84165; 84300-TC; 84484-TC; 85025-TC; 85652-TC; 85730-TC; 86140-TC; 86225; 86235; 86706; 86803; 87040-TC; 87081-TC; 87086-TC; 87340; 94002-TC; 94003-TC; 94760-TC; 94761-TC; 94762-TC; 94799-TC; 99082-TC; A4216; A4217; A4223; A6253; A6403; C9113; G0378; J0692; J0770; J1160; J1953; J2060; J2185; J3260; J3370; J3371; J3480; J3490; J7030; J7042; J7050; J7060; J7070; J7120